=== PATIENT | female | born 2000 | race Caucasian/White ===

== ENCOUNTER → 2024-04-03 | Outpatient (CLI) | payer OTHER, SELFPAY ==
[2024-04-03 14:03] LABS: Bacteria 0 SEEN /hpf (None Seen); Red Blood Cells-Urine 0 SEEN /hpf (0-5); White Blood Cells 0 SEEN /hpf (0-5)
[2024-04-03 17:26] LABS: Absolute Lymphocyte Count 2.63 X10^3/uL (0.83-4.51); Absolute Neutrophil Count 4.1 X10^3/uL (2.0-7.7); Basophil# 0.04 X10^3/uL; Basophil% 0.5 % (0-1); Color, Urine Straw (Yellow); Eosinophil# 0.12 X10^3/uL; Eosinophils% 1.6 % (0-5); Glucose, Dipstick Normal (Normal); Hematocrit 39.2 % (37-47); Hemoglobin 12.8 g/dL (12.0-15.0); Ketone-Dipstick Negative (Negative); Leukocyte Esterase-Dipstick Negative /ul (Negative); Lymphocyte # 2.63 X10^3/ul (0.83-4.51); Lymphocyte % 35.3 % (19-41); Mean Corp Hgb Conc 32.7 g/dL (32-36); Mean Corpuscular Hgb 29.3 pg (27.0-32.0); Mean Corpuscular Volume 89.7 fL (81-99); Mean Platelet Vol. 10.8 fl (6.2-12.0); Monocyte% 6.7 % (0-10); NRBC Flagged by Analyzer 0 % (0-5); Neutrophil # 4.14 X10^3/uL (2.7-7.7); Neutrophil % 55.5 % (47-70); Nitrite-Dipstick Negative (Negative); Occult Blood-Urine Negative /ul (Negative); Platelet Count 248 K/mm3 (150-450); Protein-Dipstick Negative (Negative); RBC Distribution Width CV 12.1 % (11.6-14.6); RBC Distribution Width SD 40.1 fl (35.1-43.9); Red Blood Count 4.37 M/mm3 (4.2-5.4); Urine Bilirubin Dipstick Negative (Negative); Urine Clarity Clear (Clear); Urine Urobilinogen Normal (Normal); White Blood Count 7.5 K/mm3 (4.4-11.0)
[2024-04-03 17:35] LABS: Mucous, Urine RARE /hpf (<or=2+); Squamous Epithelial Cells - UA 0-5 SEEN /hpf (5-10)
[2024-04-03 17:40] LABS: ALB/GLOB Ratio 1.2 RATIO (0.9-2.4); AST(SGOT) 20 U/L (15-37); Alanine Aminotransfer ALT/SGPT 28 U/L (13-56); Albumin, Serum 4.1 g/dL (3.2-5.0); Alkaline Phosphatase 54 U/L (45-117); Anion Gap 4 (5-15); BUN 16 mg/dL (7-18); BUN/Creat Ratio 14.5 RATIO (10-20); Calcium,Total 9.1 mg/dL (8.5-10.1); Chloride 109 mmol/L (98-107); EST Glomerular Filtration Rate 64 mL/min (>60); Est Glom Filt Rate - Afr Amer 78 mL/min (>60); Globulin 3.4 g/dL (2.2-4.2); Glucose 77 mg/dL (74-106); Potassium 3.8 mmol/L (3.5-5.1); Protein, Total 7.5 g/dL (6.4-8.2); Sodium Level 140 mmol/L (136-145)
== END | disposition home or self-care (01) ==
LOC: MFPLAB 14:02
PROVIDERS: PCP Family Medicine; Referring Provider Family Medicine; Visit Provider Family Medicine
DX: N39.0 Urinary tract infection, site not specified (principal)
CPT/HCPCS: 36415; 80053; 81001; 85025

== ENCOUNTER → 2024-04-10 | Outpatient (CLI) | payer OTHER, SELFPAY ==
[2024-04-10 10:55] LABS: Anion Gap 6 (5-15); BUN 11 mg/dL (7-18); BUN/Creat Ratio 9.6 RATIO (10-20); Calcium,Total 9.5 mg/dL (8.5-10.1); Chloride 108 mmol/L (98-107); Creatinine, Serum 1.14 mg/dL (0.55-1.02); EST Glomerular Filtration Rate 62 mL/min (>60); Est Glom Filt Rate - Afr Amer 75 mL/min (>60); Glucose 93 mg/dL (74-106); Potassium 4.2 mmol/L (3.5-5.1); Sodium Level 139 mmol/L (136-145)
== END | disposition home or self-care (01) ==
LOC: LABSPEC 10:02
PROVIDERS: PCP Family Medicine; Referring Provider Family Medicine; Visit Provider Family Medicine
DX: N39.0 Urinary tract infection, site not specified (principal)
CPT/HCPCS: 80048

== ENCOUNTER → 2024-04-15 | Outpatient (CLI) | payer OTHER, SELFPAY ==
--- NOTE | 2024-04-15 13:07 | US_ITS ---
INDICATION: UTI EXAMINATION: Ultrasound US Kidney(s) complete (eg, kidneys and bladder) TECHNIQUE: Pollack scale and color doppler images were obtained of the kidneys. COMPARISON: FINDINGS: RIGHT KIDNEY: 11.2 x 6.0 x 4.8 cm. The cortex is 16 mm. There is no hydronephrosis. No shadowing calculus, focal lesion or perinephric collection is demonstrated. LEFT KIDNEY: 10.0 x 3.4 x 4.2 cm. The cortex is 15 mm There is no hydronephrosis. No shadowing calculus, focal lesion or perinephric collection is demonstrated. URINARY BLADDER: It has a volume of 695 cc during imaging. US/Kidney and Bladder IMPRESSION: No acute pathology is noted. Electronically Signed: Jemal Grimes DO at 23:21 EST ,
[2024-04-24 08:17] LABS: HPV Reflexed? NOT INDICATED
== END | disposition home or self-care (01) ==
PROVIDERS: Nurse Practitioner Family; PCP Family Medicine; Referring Provider Family Medicine; Visit Provider Family Medicine
DX: Z12.4 Encounter for screening for malignant neoplasm of cervix (principal); N39.0 Urinary tract infection, site not specified
CPT/HCPCS: 76770; 88175; G0145

== ENCOUNTER → 2024-06-04 | Outpatient (CLI) | payer OTHER, SELFPAY ==
[2024-06-09 02:06] LABS: Chlamydia By Nucleic Acid AMP Negative (Negative); Gonococcus By Nucleic Acid AMP Negative (Negative)
== END | disposition home or self-care (01) ==
LOC: LABSPEC 17:05
PROVIDERS: PCP Family Medicine; Referring Provider Advanced Practice Midwife; Visit Provider Advanced Practice Midwife
DX: O99.210 Obesity complicating pregnancy, unspecified trimester (principal); Z3A.00 Weeks of gestation of pregnancy not specified
CPT/HCPCS: 87086; 87088; 87491; 87591

== ENCOUNTER → 2024-07-07 | Outpatient (CLI) | payer OTHER, SELFPAY ==
[2024-07-07 17:06] LABS: Absolute Lymphocyte Count 2.97 X10^3/uL (0.83-4.51); Absolute Neutrophil Count 8.9 X10^3/uL (2.0-7.7); Basophil# 0.04 X10^3/uL; Basophil% 0.3 % (0-1); Eosinophil# 0.13 X10^3/uL; Hematocrit 37.1 % (37-47); Hemoglobin 12.6 g/dL (12.0-15.0); Lymphocyte # 2.97 X10^3/ul (0.83-4.51); Lymphocyte % 22.8 % (19-41); Mean Corpuscular Hgb 29.8 pg (27.0-32.0); Mean Corpuscular Volume 87.7 fL (81-99); Mean Platelet Vol. 11.3 fl (6.2-12.0); Monocyte# 0.79 X10^3/uL; Monocyte% 6.1 % (0-10); NRBC Flagged by Analyzer 0 % (0-5); Neutrophil # 8.93 X10^3/uL (2.7-7.7); Neutrophil % 68.4 % (47-70); Platelet Count 225 K/mm3 (150-450); RBC Distribution Width SD 41.6 fl (35.1-43.9); Red Blood Count 4.23 M/mm3 (4.2-5.4)
[2024-07-07 19:24] LABS: Hepatitis B Surface Antigen Nonreactive (Nonreactive); Hepatitis C Antibody Nonreactive (Nonreactive); Rubella IgG REAC (Nonreactive); Syphilis Antibodies Nonreactive (Nonreactive)
[2024-07-07 19:51] LABS: HIV Nonreactive (Nonreactive)
[2024-07-07 20:17] LABS: Hemoglobin A1c 5.1 % (<=5.6)
== END | disposition home or self-care (01) ==
LOC: BWCLAB 16:02
PROVIDERS: Advanced Practice Midwife; PCP Family Medicine; Referring Provider Obstetrics & Gynecology; Visit Provider Obstetrics & Gynecology
DX: O99.210 Obesity complicating pregnancy, unspecified trimester (principal); Z3A.00 Weeks of gestation of pregnancy not specified
CPT/HCPCS: 36415; 83036; 85025; 86703; 86762; 86780; 86803; 86850; 86900; 86901; 87340

== ENCOUNTER → 2024-08-04 | Outpatient (CLI) | payer OTHER, SELFPAY ==
[2024-08-04 12:29] LABS: Protein, Urine (Random) 11.5 mg/dL (0.0-12.0); Protein:Creat Ratio 68 mg/g CRE (0-200)
[2024-08-04 12:32] LABS: ALB/GLOB Ratio 1.2 RATIO (0.9-2.4); AST(SGOT) 22 U/L (<=31); Alanine Aminotransfer ALT/SGPT 38 U/L (<=34); Albumin, Serum 3.8 g/dL (3.5-5.0); Alkaline Phosphatase 52 U/L (35-104); Anion Gap 10 (5-15); BUN 10 mg/dL (4-19); BUN/Creat Ratio 12.9 RATIO (10-20); Calcium,Total 9.3 mg/dL (7.6-11.0); Carbon Dioxide 21.9 mmol/L (21.0-32.0); Chloride 104 mmol/L (98-108); Creatinine, Serum 0.79 mg/dL (0.70-1.20); EST Glomerular Filtration Rate 106 (>60); Globulin 3.1 g/dL (2.2-4.2); Glucose 91 mg/dL (70-99); Potassium 4.1 mmol/L (3.3-5.1); Protein, Total 6.9 g/dL (5.9-8.4); Sodium Level 136 mmol/L (133-145); Total Bilirubin 0.33 mg/dL (0.00-1.30)
[2024-08-04 13:22] LABS: Absolute Lymphocyte Count 2.39 X10^3/uL (0.83-4.51); Absolute Neutrophil Count 9.9 X10^3/uL (2.0-7.7); Basophil# 0.07 X10^3/uL; Basophil% 0.5 % (0-1); Eosinophils% 0.7 % (0-5); Hematocrit 39.8 % (37-47); Hemoglobin 13.2 g/dL (12.0-15.0); Lymphocyte # 2.39 X10^3/ul (0.83-4.51); Lymphocyte % 17.6 % (19-41); Mean Corp Hgb Conc 33.2 g/dL (32-36); Mean Corpuscular Hgb 29.9 pg (27.0-32.0); Mean Platelet Vol. 11.6 fl (6.2-12.0); Monocyte# 0.79 X10^3/uL; Monocyte% 5.8 % (0-10); NRBC Flagged by Analyzer 0 % (0-5); Neutrophil # 9.94 X10^3/uL (2.7-7.7); Neutrophil % 73.1 % (47-70); Platelet Count 213 K/mm3 (150-450); RBC Distribution Width CV 13.4 % (11.6-14.6); RBC Distribution Width SD 43.9 fl (35.1-43.9); Red Blood Count 4.42 M/mm3 (4.2-5.4); White Blood Count 13.6 K/mm3 (4.4-11.0)
== END | disposition home or self-care (01) ==
PROVIDERS: PCP Family Medicine; Referring Provider Nurse Practitioner Women's Health; Visit Provider Nurse Practitioner Women's Health
DX: O99.891 Other specified diseases and conditions complicating pregnancy (principal); Q62.7 Congenital vesico-uretero-renal reflux; Z3A.17 17 weeks gestation of pregnancy
CPT/HCPCS: 36415; 80053; 82570; 84156; 85025

== ENCOUNTER → 2024-08-19 | Outpatient (CLI) | payer OTHER, SELFPAY ==
--- NOTE | 2024-08-19 15:20 | US_ITS ---
PROCEDURE: OB ANATOMY W/ TRANSVAGINAL 08/19/2024 REASON FOR EXAM: ANATOMY SCAN TECHNIQUE: High resolution obstetric ultrasound performed using a 2D transducer. Standard views obtained, including biometry, anatomy survey, and Doppler studies. COMPARISON: None FINDINGS Number: 1 Position: Breech Placental Position: Anterior and not low-lying. Placental Abnormalities: No evidence of previa. DIMENSIONS: Biparietal Diameter: 4.25 cm: 18 weeks and 6 days: 10 percentile/ Head Circumference: 16.99 cm: 19 weeks and 4 days: 24 percentile/ Abdominal Circumference: 14.07 cm: 19 weeks and 3 days: 27 percentile/ Femur Length: 3.13 cm: 19 weeks and 5 days: 32nd percentile/ ESTIMATED WEIGHT: 295 g plus/-44 g ESTIMATED WEIGHT PERCENTILE (24+ weeks): 21 ESTIMATED GESTATIONAL AGE: Baseline: 20 weeks and 0 days By Ultrasound: 19 weeks and 4 days ESTIMATED DATE OF DELIVERY: Baseline: January 06, 2025 By Ultrasound: January 09, 2025 BIOPHYSICAL ASSESSMENT: Amniotic Fluid Volume: 3.97 cm Amniotic Fluid Index: Within normal limits. Cardiac Motion: 145 beats per minute (average) Trunk and Limb Motion: Present. MATERNAL ANATOMY: Adnexa: Neither maternal ovary is successfully identified. Cervical Length (if measured): 3.7 cm ANATOMY: Spine: Unremarkable Cranium: Unremarkable Cerebellum: Unremarkable Cisterna Magna: Unremarkable Cavum Septum Pellucidi: Unremarkable Lateral Ventricles: Unremarkable Choroid Plexus: Unremarkable Midline Falx: Unremarkable Nuchal Fold: Unremarkable Upper Lip: Unremarkable Heart: Unremarkable Ventricular Outflow Tracts: Unremarkable Stomach: Unremarkable Kidneys: Unremarkable Bladder: Unremarkable Umbilical Cord: Normal placental insertion. cord insertion not seen well. Extremities: Unremarkable US/OB Anatomy w/ Transvaginal IMPRESSION: Single live intrauterine gestation with a mean gestational age of 19 weeks and 4 days. Reading Location: [facility]
== END | disposition home or self-care (01) ==
LOC: US 15:18
PROVIDERS: PCP Family Medicine; Referring Provider Obstetrics & Gynecology; Visit Provider Obstetrics & Gynecology
DX: Z34.92 Encounter for supervision of normal pregnancy, unspecified, second trimester (principal)
CPT/HCPCS: 76805; 76817

== ENCOUNTER → 2024-10-10 | Outpatient (CLI) | payer OTHER, SELFPAY ==
--- OUTSIDE RECORDS SUMMARY | 2024-10-10 20:57 | XMS RPT_ITS | CCD ---
Author Organization [facility] Care Team Providers Care Handle Lathe Operator Name Role Phone Bojtos, Pa A Unavailable Unavailable Bojtos, Pa A Unavailable Unavailable Bojtos, Pa Unavailable Unavailable Krichbaum, Idalia L Unavailable Unavailable Bojtos, Pa Unavailable Unavailable Bojtos, Pa Unavailable Unavailable Bojtos, Pa Unavailable Unavailable Krichbaum, Idalia L Unavailable Unavailable BOJTOS, PA Unavailable Unavailable BOJTOS, PA Unavailable Unavailable RUSTY, LYNNE L Unavailable Unavailable ELENI VIDAL Unavailable Unavailable RUSTY, LYNNE L Unavailable Unavailable Sridhar PITTMAN, Dr. Donald Pittman Primary Care Provider Sridhar PITTMAN, Dr. Donald Pittman Attending Provider [phone] Dr. Donald Waller MD Referring Provider Noemi FAN-Magda Martínez Attending Provider Susie Solomon CNM Attending Provider [phone] Susie Solomon CNM Referring Provider Dr. Nita Mcintosh MD Attending Provider [phone] Dr. Nita Mcintosh MD Referring Provider Dr. Donald Waller MD Primary Care Provider Dr. Donald Waller MD Attending Provider [phone] Dr. Donald Waller MD Referring Provider Sudheer FAN-Jennifer Martínez Attending Provider Sudheer FAN-CJennifer Referring Provider Dr. Donald Waller MD Primary Care Provider Dr. Donald Waller MD Referring Provider Dr. Susan Chavez DO Attending Provider Dinh Livingston Attending Provider [phone] Donald Waller Primary Care Unavailable SchDonald marie E Referring Unavailable SchDonald marie Attending Unavailable Assessment, Health Risk Referring Unavaila ble Assessment, Health Risk Attending Unavaila ble SchDonald marie E Primary Care Unavailable Schinner, Donald E Referring Unavailable SchinnerDonlad E Attending Unavailable SchinDonald wilde E Primary Care Unavailable SchinDonald wilde E Referring Unavailable Susie Solomon Attending Unavailable SchinDonald wilde E Primary Care Unavailable SchinDonald wilde E Referring Unavailable Nita Mcintosh Attending Unavailable Schinner, Donald E Primary Care Unavailable SchinnerDonald Referring Unavailable Sudheer BATHHOUSE ATTENDANTJennifer Attending Unavailable SchinDonald wilde E Primary Care Unavailable SchDonald marie E Referring Unavailable Susan Chavez Attending Unavailronda e Schinandry, Donald E Primary Care Unavailable SchinnerDonald Referring Unavailable Jennifer Willard NP Attending Unavailable Schinandry, Donald E Primary Care Unavailable SchDonald marie Referring Unavailable Dinh Livingston Attending Unavailable SchinDonald widle Referring Unavailable Schinner, Donald E Primary Care Unavailable Magda Franklin Attending Unavailable SchinDonald wilde E Primary Care Unavailable SchDonald marie Referring Unavailable SchDonald marie Attending Unavailable SchDonald marie E Primary Care Unavailable Susie Solomon Referring Unavailable Susie Soolmon Attending Unavailable Schcynthia, Donald E Primary Care Unavailable Nita Mcintosh Referring Unavailable Nita Mcintosh Attending Unavailable Donald Waller E Primary Care Unavailable Nita Mcintosh Referring Unavailable Nita Mcintosh Attending Unavailable Donald Waller E Primary Care Unavailable Jennifer Willard NP Referring Unavailable Sudheer BATHHOUSE ATTENDANTJennifer Attending Unavailable Medications Current Medications Medication Drug Class(es) Dates Sig (Normalized) Sig (Original) amoxicillin 875 mg oral tablet (2 sources) Penicillin-class Antibacterial Start: 09-28-2024 take 1 tablet by mouth twice daily Amoxicillin 875 mg tablet Active 875 mg PO TWICE A DAY September 28, 2024 12:00am bacillus coagulans [id number] unt chewable tablet (4 sources) Start: 05-26-2024 Bacillus Coagulans (Probiotic (B. Coagulans)) 250 million cell tablet,chewable Active 2 {tbl} PO ONCE May 26, 2024 1:00am calcium ascorbate 500 mg oral tablet (4 sources) Start: 05-26-2024 take 1 tablet by mouth once daily Ascorbate Calcium (Vitamin C) 500 mg tablet Active 500 mg PO daily May 26, 2024 1:00am 24 hr ferrous sulfate 142 mg extended release oral tablet (4 sources) Start: 05-26-2024 take 1 tablet by mouth once daily Ferrous Sulfate (Slow Fe) 137 mg (45 mg iron) tablet extended release Active 137 mg PO daily May 26, 2024 1:00am ondansetron 4 mg disintegrating oral tablet (3 sources) Serotonin-3 Receptor Antagonist Start: 08-04-2024 take 1 tablet by mouth every four hours as needed for nausea and vomiting Ondansetron 4 mg tablet,disintegra ting Active 4 mg PO Q4H as needed for nausea and vomiting August 04, 2024 12:00am Pnv No.111-Ds-Nn9-Dha-Ep a-Fish 400 mcg-35 mg- 25 mg-5 mg tablet,chewable (4 sources) Start: 05-26-2024 Pnv No.037-Fo-Ui2-Dha -Epa-Fish 400 mcg-35 mg- 25 mg-5 mg tablet,chewable Active {tbl} PO May 26, 2024 1:00am Problems Active Problems Problem Classification Problem Date Documented Date Episodic/Chronic Anxiety disorders (19 sources) Anxiety; Translations: [Anxiety disorder, unspecified] Onset: 5 05-26-2024 Chronic Comment on above: not medicated 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; Translations: [Congenital alczpr-lcljvsr-confu reflux] Onset: 5 08-04-2024 Chronic Comment on above: check urine func Q3 mo:CMP and urine PC ratio Other complications of (18 sources) Maternal obesity complicating , childbirth and the puerperium, antepartum; Translations: [Obesity complicating , unspecified trimester] 05-26-2024 Chronic Comment on above: HgbA1c Other complications of (1 source) Obesity complicating , second trimester; Translations: [Obesity complicating , second trimester] Onset: 5 Chronic Other complications of (1 source) Obesity complicating , unspecified trimester; Translations: [Obesity complicating , unspecified trimester] Onset: 5 Chronic Other diseases of kidney and ureters (3 sources) Kidney disease; Translations: [Disorder of kidney and ureter, unspecified] 09-28-2024 Episodic Other and delivery including normal (20 sources) Normal ; Translations: [Encounter for supervision of normal first , unspecified trimester] Onset: 5 07-08-2024 Episodic Comment on above: PRR, , TERRENCE , Significant other Juan elects NIPT with Gen daniella NIPT low risk PRR, , TERRENCE , Significant other Juan. nl anatomy Other screening for suspected conditions (not mental disorders or infectious disease) (11 sources) Serum creatinine raised; Translations: [Other specified abnormal findings of blood chemistry] Onset: 5 08-04-2024 Episodic Comment on above: with her reflux-runs just above normal. Follows with Dr Worley. Labs Q3mo:CMP and urine P/C ratio Residual codes; unclassified (18 sources) Nicotine-filled electronic cigarette user; Translations: [Tobacco use] 05-26-2024 Episodic Comment on above: Has decreased % of n icotine, considering quitting, smoking education provided Residual codes; unclassified (18 sources) FH: Hemophilia; Translations: [Family history of diseases of the blood and blood-forming organs and certain disorders involving the immune mechanism] 05-26-2024 Episodic Comment on above: Maternal Aunt Residual codes; unclassified (1 source) Tobacco use; Translations: [Tobacco use] Onset: 5 Episodic Residual codes; unclassified (1 source) Family history of diseases of the blood and blood-forming organs and certain disorders involving the immune mechanism; Translations: [Family history of diseases of the blood and blood-forming organs and certain disorders involving the immune mechanism] Onset: 5 Episodic Residual codes; unclassified (1 source) 17 weeks gestation of ; Translations: [17 weeks gestation of ] Onset: 5 Episodic Residual codes; unclassified (1 source) 13 weeks gestation of ; Translations: [13 weeks gestation of ] Onset: 5 Episodic Unclassified (1 source) Other specified diseases and conditions complicating ; Translations: [Other specified diseases and conditions complicating ] Onset: 5 Urinary tract infections (19 sources) Recurrent urinary tract infection; Translations: [Urinary tract infection, site not specified] Onset: 5 04-15-2024 Episodic Past or Other Problems Problem Classification Problem Date Documented Da te Episodic/Chronic Residual codes; unclassified (1 source) 9 weeks gestation of ; Translations: [9 weeks gestation of ] Onset: 06-04-2024 Episodic Results Test Name Value Interpretation Reference Range Facility Picture [facility] Office Visit Reporton 09-28-2024 Picture [facility] Office Visit Report [facility] [address], [address] [place] [address] OFFICE VISIT Date of Service: 09/28/24 MR#: [id number] Acct: [id number] Name: LUCIANO KENDALL Rep #: [id number] : 2000 Provider: ANY dykes Age/Sex: 24/F [place] [facility] [place]: [place] Intake Vital Signs 09/01/24 15:04 09/28/24 07:30 09/28/24 14:56 Height 5 ft 8 in 5 ft 8 in 5 ft 8 in Weight: 262 lb BMI 39.8 BP 122/76 H Intake Visit Reasons: 26wk ob Chief Complaint: 26 Week OB Gastroenterology Nurse Required: No Is patient in pain?: No Allergies No Known Allergies Allergy (Verified 09/28/24 15:00) Medications ???Medication ???Instructions ???Recorded ???Confirmed ???Type Bacillus coagulans 250 million 2 tab PO ONCE 05/26/24 09/28/24 Hi story cell chewable tablet (Probiotic (B. coagulans)) PNV 153-FA 400 mcg-om3 35 mg-dha tab PO 05/26/24 09/28/24 History 25 mg-epa 5 mg-fish oil chew tablet ascorbate calcium (vitamin C) 500 500 mg PO QDAY 05/26/24 09/28/24 History mg tablet ferrous sulfate 137 mg (45 mg 137 mg PO QDAY 05/26/24 09/28/24 H istory iron) tablet,extended release (Slow Fe) ondansetron 4 mg disintegrating 4 mg PO Q4H PRN nausea and 5 09/28/24 Rx tablet vomiting #60 tabs amoxicillin 875 mg tablet 875 mg PO BID #20 tabs 09/28/24 Rx Last Menstrual Period: 04/01/24 Zika: Zika virus screening: Negative : No PFSH PFSH Medical History Congenital gzzadv-hydlzgb-blfrh reflux Gallstones UTI (urinary tract infection) Asthma Surgical History Hx of cholecystectomy Hx of tonsillectomy Family History Father Diabetes Type 1 Aunt Thyroid disorder Maternal Mother Thyroid disorder enlarged Grandmother Breast cancer Paternal Social History adopted: No household members: significant other 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al status: employed 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al exposures/hazards: No pets and animals: Yes (Avoid litter box) pets and animals: cat(s) history of recent travel: Yes () out of country: Yes sexually active: Yes Smoking Status: Current every day smoker Electronic Cigarette Use: with nicotine quit status: considering quitting alcohol intake: current alcohol intake frequency: a few times a month details: Not while substance use type: does not use well-balanced diet: about half the time caffeine: Yes Type: coffee Number of servings: 1 eating out: 1-3 times/week during the past year weight has: decreased > 10 lbs what type of physical activity do you participate in: walking and weight training frequency: 1-2 times per week duration: 60-90 minutes/day sid/lutheran: None seatbelt use: always do you feel safe at home: Yes additional social history: significant other- Juan History 1 Elective abortions Hx Para 0 Spontaneous abortions Hx # Term Pregnancies Ectopic pregnancies Hx # Pregnancies Multiple births # of living children HPI 26wk ob Details: LUCIANO KENDALL is a 24 year old who presents for routine OB visit. OB Visit TERRENCE Calculator Estimated Delivery Date Method Current WG Current Estimate 01/06/25 LMP (Certain) 25w 5d Other Estimates 01/09/25 Ultrasound #1 25w 2d Expected Delivery Route/Plan Labor Preferences- CB/BF classes: encouraged labor support person: Wesley labor intervention preferences: epidural pain management options preferred: [] cut cord/dad catch: maybe cord : yes PP control planned: discussed discussed possible routes of delivery and associated risks: [] special requests: [] Specific Issue/Plans Covid status: [] Flu vaccine: [] Tdap vaccine: [] Rhogam: NA LARC form signed: yes Problem list reviewed and updated with the most current plan of care details and appropriate orders placed. Relevant counseling for the gestational age provided. Continue routine care and follow up unless otherwise noted in visit notes/problem list details Initial Weight: 226 lb Date -???-???-???-???-???- ???-???-???-???-???-? ??-???- EGA Weight BP Urine Prot -???-???-???-???-???- ???-???-???-???-???-? ??-???- Glucose FHR FuHt Pres Dilation -???-???-???-???-???- ???-???-???-???-???-? ??-???- Effaced St Visit Note 06/04/24 -???-???-???-???-???- ???-???-???-???-???-? ??-???- 9w 1d 226 lb 4 oz (+4 oz) 128/82 -???-???-???-???-???- ???-???-???-???-???-? ??-???- 175 -???-???-???-???-???- ???-???-???-???-???-? ??-???- KW- CRL cons with dates. acce (more content not included)... Normal [facility]gent [facility] Visit Reporton 0 09-28-2024 Urgent Care Visit Report [facility] [address], [address] [place] [address] OFFICE VISIT Date of Service: 09/28/24 MR#: [id number] Acct: [id number] Name: LUCIANO KENDALL Rep #: [id number] : 2000 Provider: CLAUDETTE Farmer Age/Sex: 24/F [place] [facility] [place] Status: Signed Intake Vital Signs 09/01/24 15:04 09/28/24 07:30 Height 5 ft 8 in 5 ft 8 in Weight: 263 lb 8 oz BMI 40.0 BP 120/80 Position Sitting Pulse 90 Temp 98.8 F Temp Source Oral Pulse Oximetry (%) 99 Oxygen Delivery Method room air Intake Visit Reasons: congestion, cough, sore throat Accompanied by: self Allergies No Known Allergies Allergy (Verified 09/28/24 07:28) Medications ???Medication ???Instructions ???Recorded ???Confirmed ???Type Bacillus coagulans 250 million 2 tab PO ONCE 05/26/24 09/28/24 Hi story cell chewable tablet (Probiotic (B. coagulans)) PNV 153-FA 400 mcg-om3 35 mg-dha tab PO 05/26/24 09/28/24 History 25 mg-epa 5 mg-fish oil chew tablet ascorbate calcium (vitamin C) 500 500 mg PO QDAY 05/26/24 09/28/24 History mg tablet ferrous sulfate 137 mg (45 mg 137 mg PO QDAY 05/26/24 09/28/24 H istory iron) tablet,extended release (Slow Fe) ondansetron 4 mg disintegrating 4 mg PO Q4H PRN nausea and 5 09/01/24 Rx tablet vomiting #60 tabs amoxicillin 875 mg tablet 875 mg PO BID #20 tabs 06/02/25 06 /02/25 Rx Nurse's Note: Patient has congestion,cough,ST,t eeth pain and sinus pressure. Patient lost her voice on Sat night. 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al exposures/hazards: No pets and animals: Yes (Avoid litter box) pets and animals: cat(s) history of recent travel: Yes () out of country: Yes sexually active: Yes Smoking Status: Current every day smoker Electronic Cigarette Use: with nicotine quit status: considering quitting alcohol intake: current alcohol intake frequency: a few times a month details: Not while substance use type: does not use well-balanced diet: about half the time caffeine: Yes Type: coffee Number of servings: 1 eating out: 1-3 times/week during the past year weight has: decreased > 10 lbs what type of physical activity do you participate in: walking and weight training frequency: 1-2 times per week duration: 60-90 minutes/day sid/lutheran: None seatbelt use: always do you feel safe at home: Yes additional social history: significant other- Juan [facility] HPI Details: LUCIANO KENDALL, is a 24 F who presents to the office today for [facility] evaluation at [facility] for approximately 5-day history of progressively worsening forehead and facial pressure/congestion with purulent postnasal drip/cough and upper dentition pain. No complaints of fever, chills, myalgias, fatigue, runny nose, or nausea/vomiting/diarr hea. No complaints of chest pain/shortness of breath/dyspnea on exertion. No vision changes or eye globe pain. No close contacts with similar complaints. No other associated symptoms and no other alleviating/aggravati ng factors. ROS Const Constitutional: No other (as above) Exam Const General: cooperative, healthy appearing and no acute distress Nutritional Appearance: average body habitus Orientation: alert, awake and oriented x3 HENMT Head: normal to inspection Ears: hearing grossly normal bilaterally, external ears normal, TM's normal bilaterally and EAC's normal Nose: external nose normal, nares normal, septum normal and no nasal discharge Face and sinus: normal facial exam, sinuses tender (bilateral frontal and maxillary), and face symmetric Mouth: oral mucosae normal, lip normal, tongue normal and oropharynx normal; dentition and gingiva clear Throat: posterior oropharynx normal, tonsils normal, uvula midline and postnasal drainage (Purulent) Eyes General: appearance normal, both eyes and all related structures Neck Neck: normal visual inspection, full ROM, no meningeal signs, supple and lymphadenopathy (Bilateral anterior cervical lymph node swelling/tender to palpation) Neck mass: No Thyroid: thyroid normal Chest Chest palpation inspection: normal i (more content not included)... Normal [facility] - Chemistry and C hemistry - challengeOrdered By: Susan Coburn on 09-01-2024 Glucose Ql (U) Negative [facility] - UrinalysisOrder ed By: Susan Coburn on 09-01-2024 Protein Ql (U) Negative [facility] Picture [facility] Office Visit Reporton 09-01-2024 Picture [facility] Office Visit Report [facility] [address], [address] [place] [address] OFFICE VISIT Date of Service: 09/01/24 MR#: [id number] Acct: [id number] Name: LUCIANO KENDALL Rep #: [id number] : 2000 Provider: Dr. Susan Lau DO Age/Sex: 24/F [place] [facility] [place] Status: Signed Intake Vital Signs 07/07/24 15:11 08/04/24 10:40 09/01/24 15:02 09/01/24 15:04 Height 5 ft 8 in 5 ft 8 in 5 ft 8 in 5 ft 8 in Weight: 246 lb 2 oz BMI 37.4 BP 125/81 H Intake Visit Reasons: 22 wk ob Gastroenterology Nurse Required: No Is patient in pain?: No Allergies No Known Allergies Allergy (Verified 09/01/24 15:02) Medications ???Medication ???Instructions ???Recorded ???Confirmed ???Type Bacillus coagulans 250 million 2 tab PO ONCE 05/26/24 09/01/24 Hi story cell chewable tablet (Probiotic (B. coagulans)) PNV 153-FA 400 mcg-om3 35 mg-dha tab PO 05/26/24 09/01/24 History 25 mg-epa 5 mg-fish oil chew tablet ascorbate calcium (vitamin C) 500 500 mg PO QDAY 05/26/24 09/01/24 History mg tablet ferrous sulfate 137 mg (45 mg 137 mg PO QDAY 05/26/24 09/01/24 H istory iron) tablet,extended release (Slow Fe) ondansetron 4 mg disintegrating 4 mg PO Q4H PRN nausea and 5 09/01/24 Rx tablet vomiting #60 tabs Last Menstrual Period: 04/01/24 Zika: Zika virus screening: Negative : No PFSH PFSH Medical History Congenital decity-mizlydy-ptsra reflux Gallstones UTI (urinary tract infection) Asthma Surgical History Hx of cholecystectomy Hx of tonsillectomy Family History Father Diabetes Type 1 Aunt Thyroid disorder Maternal Mother Thyroid disorder enlarged Grandmother Breast cancer Paternal Social History adopted: No household members: significant other 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al status: employed 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al exposures/hazards: No pets and animals: Yes (Avoid litter box) pets and animals: cat(s) history of recent travel: Yes () out of country: Yes sexually active: Yes Smoking Status: Current every day smoker Electronic Cigarette Use: with nicotine quit status: considering quitting alcohol intake: current alcohol intake frequency: a few times a month details: Not while substance use type: does not use well-balanced diet: about half the time caffeine: Yes Type: coffee Number of servings: 1 eating out: 1-3 times/week during the past year weight has: decreased > 10 lbs what type of physical activity do you participate in: walking and weight training frequency: 1-2 times per week duration: 60-90 minutes/day sid/lutheran: None seatbelt use: always do you feel safe at home: Yes additional social history: significant other- Juan History 1 Elective abortions Hx Para 0 Spontaneous abortions Hx # Term Pregnancies Ectopic pregnancies Hx # Pregnancies Multiple births # of living children HPI 22 wk ob Details: LUCIANO KENDALL is a 24 year old who presents for routine OB visit. OB Visit TERRENCE Calculator Estimated Delivery Date Method Current WG Current Estimate 01/06/25 LMP (Certain) 21w 6d Other Estimates 01/09/25 Ultrasound #1 21w 3d Expected Delivery Route/Plan Labor Preferences- CB/BF classes: [] labor support person: [] labor intervention preferences: [] pain management options preferred: [] cut cord/dad catch: [] : [] PP control planned: [] discussed possible routes of delivery and associated risks: [] special requests: [] Specific Issue/Plans Covid status: [] Flu vaccine: [] Tdap vaccine: [] Rhogam: [] LARC form signed: [] Problem list reviewed and updated with the most current plan of care details and appropriate orders placed. Relevant counseling for the gestational age provided. Continue routine care and follow up unless otherwise noted in visit notes/problem list details Initial Weight: 226 lb Date -???-???-???-???-???- ???-???-???-???-???-? ??-???- EGA Weight BP Urine Prot -???-???-???-???-???- ???-???-???-???-???-? ??-???- Glucose FHR FuHt Pres Dilation -???-???-???-???-???- ???-???-???-???-???-? ??-???- Effaced St Visit Note 06/04/24 -???-???-???-???-???- ???-???-???-???-???-? ??-???- 9w 1d 226 lb 4 oz (+4 oz) 128/82 -???-???-???-???-???- ???-???-???-???-???-? ??-???- 175 -???-???-???-???-???- ???-???-???-???-???-? ??-???- KW- CRL cons with dates. accepts nipt. 07/07/24 -???-???-???-???-???- ???-???-???-???-???-? ??-???- 13w 6d 228 lb 8 oz (+2 (more content not included)... Normal [facility] OB Anatomy w/ Transvaginalon 08-19-2024 OB Anatomy w/ Transvaginal [facility] [address] [place] [address] [id number] OB Anatomy w/ Transvaginal MR#: [id number] Acct: [id number] Name: LUCIANO KENDALL Rep #: [id number] : 2000 F 24 From: Kermit griffin MD PCP: Dr. Donald Waller MD Status: [facility] Study: OB Anatomy w/ Transvaginal Date of Exam: 08/19 Exam# [id number] Ordering Dr: Nita Mcintosh PROCEDURE: OB ANATOMY W/ TRANSVAGINAL 08/19/2024 REASON FOR EXAM: ANATOMY SCAN TECHNIQUE: High resolution obstetric ultrasound performed using a 2D transducer. Standard views obtained, including biometry, anatomy survey, and Doppler studies. COMPARISON: None FINDINGS Number: 1 Position: Breech Placental Position: Anterior and not low-lying. Placental Abnormalities: No evidence of previa. DIMENSIONS: Biparietal Diameter: 4.25 cm: 18 weeks and 6 days: 10 percentile/ Head Circumference: 16.99 cm: 19 weeks and 4 days: 24 percentile/ Abdominal Circumference: 14.07 cm: 19 weeks and 3 days: 27 percentile/ Femur Length: 3.13 cm: 19 weeks and 5 days: 32nd percentile/ ESTIMATED WEIGHT: 295 g plus/-44 g ESTIMATED WEIGHT PERCENTILE (24+ weeks): 21 ESTIMATED GESTATIONAL AGE: Baseline: 20 weeks and 0 days By Ultrasound: 19 weeks and 4 days ESTIMATED DATE OF DELIVERY: Baseline: January 06, 2025 By Ultrasound: January 09, 2025 BIOPHYSICAL ASSESSMENT: Amniotic Fluid Volume: 3.97 cm Amniotic Fluid Index: Within normal limits. Cardiac Motion: 145 beats per minute (average) Trunk and Limb Motion: Present. MATERNAL ANATOMY: Adnexa: Neither maternal ovary is successfully identified. Cervical Length (if measured): 3.7 cm ANATOMY: Spine: Unremarkable Cranium: Unremarkable Cerebellum: Unremarkable Cisterna Magna: Unremarkable Cavum Septum Pellucidi: Unremarkable Lateral Ventricles: Unremarkable Choroid Plexus: Unremarkable Midline Falx: Unremarkable Nuchal Fold: Unremarkable Upper Lip: Unremarkable Heart: Unremarkable Ventricular Outflow Tracts: Unremarkable Stomach: Unremarkable Kidneys: Unremarkable Bladder: Unremarkable Umbilical Cord: Normal placental insertion. cord insertion not seen well. Extremities: Unremarkable US/OB Anatomy w/ Transvaginal IMPRESSION: Single live intrauterine gestation with a mean gestational age of 19 weeks and 4 days. Reading Location: [place] [address] CC: Dr. Donald Waller MD; Dr. Nita Mcintosh MD Commercial Loan Coordinator: Signed Normal [facility] Absolute lymphocyte countOrd ered By: Jennifer Willard on 08-04-2024 Lymphocytes Auto (Unsp spec) [#/Vol] 2.39 10*3/uL 0.83-4.51 [facility] Absolute neutrophil countOrd ered By: Jennifer Willard on 08-04-2024 Neutrophils (Bld) [#/Vol] 9.9 10*3/uL High 2.0-7.7 [facility] Anion gap in Serum or Plasma Ordered By: Jennifer Willard on 08-04-2024 Anion gap [Moles/Vol] 10 mmol/L 5-15 [facility] Automated lymphocyte count a s percentage of total leukocytesOrdered By: Jennifer Willard on 08-04-2024 Lymphocytes/100 WBC Auto (Unsp spec) 17.6 % Low 19-41 [facility] BUN/creatinine ratioOrdered By: Jennifer Willard on 08-04-2024 Urea nitrogen/Creatinine [Mass ratio] 12.9 mg/mg 10-20 [facility] Basophil percentageOrdered B y: Jennifer Willard on 08-04-2024 Basophils/100 WBC (Bld) 0.5 % 0-1 [facility] Bilirubin, totalOrdered By: Jenniferfidel Willard on 08-04-2024 Bilirubin [Mass/Vol] 0.33 mg/dL 0.00-1.30 [facility] CBC W/Diff, Automatedon Absolute Lymph 2.39 X10 3/uL Normal 0.83-4.51 [facility] Comment on above: Order Comment: ADD O N Performed By: #### L 100.0100 #### [facility] [address] [place], [address] Absolute Neut 9.9 X10 3/uL High 2.0-7.7 [facility] Comment on above: Order Comment: ADD O N Performed By: #### L 100.0100 #### [facility] [address] [place], [address] Basophils/100 WBC (Bld) 0.5 % Normal 0-1 [facility] Comment on above: Order Comment: ADD O N Performed By: #### L 100.0100 #### [facility] [address] [place], [address] Eosinophils/100 WBC (Bld) 0.7 % Normal 0-5 [facility] Comment on above: Order Comment: ADD O N Performed By: #### L 100.0100 #### [facility] [address] [place], [address] Erythrocyte distribution width (RBC) [Ratio] 13.4 % Normal 11.6-14.6 [facility] Comment on above: Order Comment: ADD O N Performed By: #### L 100.0100 #### [facility] [address] [place], [address] Hematocrit (Bld) [Volume fraction] 39.8 % Normal 37-47 [facility] Comment on above: Order Comment: ADD O N Performed By: #### L 100.0100 #### [facility] [address] [place], [address] Hemoglobin (Bld) [Mass/Vol] 13.2 g/dL Normal 12.0-15.0 [facility] Comment on above: Order Comment: ADD O N Performed By: #### L 100.0100 #### [facility] [address] [place], [address] IG% 2.300 High 0.0-0.9 [facility] Comment on above: Order Comment: ADD O N Result Comment: IG% - Immature Granulocytes (promyelocytes, myelocytes and metamyelocytes) > 1% indicates that a LEFT SHIFT is Present. Performed By: #### L 100.0100 #### [facility] [address] [place], [address] Lymphocytes/100 WBC (Bld) 17.6 % Low 19-41 [facility] Comment on above: Order Comment: ADD O N Performed By: #### L 100.0100 #### [facility] [address] [place], [address] MCH (RBC) [Entitic mass] 29.9 pg Normal 27.0-32.0 [facility] Comment on above: Order Comment: ADD O N Performed By: #### L 100.0100 #### [facility] [address] [place], [address] MCHC (RBC) [Mass/Vol] 33.2 g/dL Normal 32-36 [facility] Comment on above: Order Comment: ADD O N Performed By: #### L 100.0100 #### [facility] [address] [place], [address] MCV (RBC) [Entitic vol] 90.0 fL Normal 81-99 [facility] Comment on above: Order Comment: ADD O N Performed By: #### L 100.0100 #### [facility] [address] [place], [address] Monocytes/100 WBC (Bld) 5.8 % Normal 0-10 [place] Comment on above: Order Comment: ADD O N Performed By: #### L 100.0100 #### [facility] [address] [place], [address] Neutrophils/100 WBC (Bld) 73.1 % High 47-70 [facility] Comment on above: Order Comment: ADD O N Performed By: #### L 100.0100 #### [facility] [address] [place], [address] Nucleated RBC (Bld) [#/Vol] 0 10*3/uL Normal 0-5 [facility] Comment on above: Order Comment: ADD O N Performed By: #### L 100.0100 #### [facility] [address] [place], [address] Platelet mean volume (Bld) [Entitic vol] 11.6 fL Normal 6.2-12.0 [facility] Comment on above: Order Comment: ADD O N Performed By: #### L 100.0100 #### [facility] [address] [place], [address] Platelets (Bld) [#/Vol] 213 10*3/uL Normal 150-450 [facility] Comment on above: Order Comment: ADD O N Performed By: #### L 100.0100 #### [facility] [address] [place], [address] RBC (Bld) [#/Vol] 4.42 10*6/uL Normal 4.2-5.4 [facility] Comment on above: Order Comment: ADD O N Performed By: #### L 100.0100 #### [facility] [address] [place], [address] RDW SD 43.9 fl Normal 35.1-43.9 [facility] Comment on above: Order Comment: ADD O N Performed By: #### L 100.0100 #### [facility] [address] [place], [address] WBC (Bld) [#/Vol] 13.6 10*3/uL High 4.4-11.0 [facility] Comment on above: Order Comment: ADD O N Performed By: #### L 100.0100 #### [facility] [address] [place], [address] Carbon dioxide, total [Moles /volume] in Central venous bloodOrdered By: Jennifer Willard on 08-04-2024 CO2 [Moles/Vol] 21.9 mmol/L 21.0-32.0 [facility] Chloride assayOrdered By: David Willard on 08-04-2024 Chloride [Moles/Vol] 104 mmol/L 98-108 [facility] Comprehensive Metabolic Prof ilon 08-04-2024 Albumin [Mass/Vol] 3.8 g/dL Normal 3.5-5.0 [facility] Comment on above: Performed By: #### L 7400.0353 #### [facility] [address] [place], [address] Albumin/Globulin [Mass ratio] 1.2 {ratio} Normal 0.9-2.4 [facility] Comment on above: Performed By: #### L 7400.0353 #### [facility] [address] [place], [address] ALK PHOS 52 U/L Normal 35-104 [facility] Comment on above: Performed By: #### L 7400.0353 #### [facility] [address] [place], [address] ALT [Catalytic activity/Vol] 38 U/L High <=34 [facility] Comment on above: Performed By: #### L 7400.0353 #### [facility] [address] [place], [address] AST [Catalytic activity/Vol] 22 U/L Normal <=31 [facility] Comment on above: Performed By: #### L 7400.0353 #### [facility] [address] [place], [address] Bilirubin [Mass/Vol] 0.33 mg/dL Normal 0.00-1.30 [facility] Comment on above: Performed By: #### L 7400.0353 #### [facility] [address] [place], [address] BUN/CRE 12.9 RATIO Normal 10-20 [facility] Comment on above: Performed By: #### L 7400.0353 #### [facility] [address] [place], [address] Calcium [Mass/Vol] 9.3 mg/dL Normal 7.6-11.0 [facility] Comment on above: Performed By: #### L 7400.0353 #### [facility] [address] [place], [address] Chloride [Moles/Vol] 104 mmol/L Normal 98-108 [facility] Comment on above: Performed By: #### L 7400.0353 #### [facility] [address] [place], [address] CO2 [Moles/Vol] 21.9 mmol/L Normal 21.0-32.0 [facility] Comment on above: Performed By: #### L 7400.0353 #### [facility] [address] [place], [address] Creatinine [Mass/Vol] 0.79 mg/dL Normal 0.70-1.20 [facility] Comment on above: Performed By: #### L 7400.0353 #### [facility] [address] [place], [address] GAP 10 Normal 5-15 [facility] Comment on above: Performed By: #### L 7400.0353 #### [facility] [address] [place], [address] GFR/1.73 sq M.predicted among non-blacks MDRD (S/P/Bld) [Vol rate/Area] 106 mL/min/{1.73_m2} Normal >60 [facility] Comment on above: Result Comment: mL/m in/1.73m2 CKD-EPI Creatinine Equation (2020) Performed By: #### L 7400.0353 #### [facility] [address] [place], [address] Globulin (S) [Mass/Vol] 3.1 g/dL Normal 2.2-4.2 [place] Comment on above: Performed By: #### L 7400.0353 #### [facility] [address] [place], [address] Glucose [Mass/Vol] 91 mg/dL Normal 70-99 [facility] Comment on above: Performed By: #### L 7400.0353 #### [facility] [address] [place], [address] Potassium [Moles/Vol] 4.1 mmol/L Normal 3.3-5.1 [facility] Comment on above: Performed By: #### L 7400.0353 #### [facility] [address] [place], [address] Sodium [Moles/Vol] 136 mmol/L Normal 133-145 [facility] Comment on above: Performed By: #### L 7400.0353 #### [facility] [address] [place], [place], [address] T PROT 6.9 g/dL Normal 5.9-8.4 [facility] Comment on above: Performed By: #### L 7400.0353 #### [facility] [address] [place], [place], [address] Urea nitrogen [Mass/Vol] 10 mg/dL Normal 4-19 [facility] Comment on above: Performed By: #### L 7400.0353 #### [facility] [address] [place], [address] Creatinine Unsp time (U) [Ma ss/Vol]Ordered By: Jennifer Willard on 08-04-2024 Creatinine (U) [Mass/Vol] 169.00 mg/dL 28.00-217.00 [facility] Eosinophil percentageOrdered By: Jennifer Willard on 08-04-2024 Eosinophils/100 WBC (Bld) 0.7 % 0-5 [facility] Erythrocyte distribution wid th (RBC) [Ratio]Ordered By: Jennifer Willard on 08-04-2024 Erythrocyte distribution width (RBC) [Entitic vol] 43.9 fL 35.1-43.9 [facility] Erythrocyte distribution wid th ratioOrdered By: Jennifer Willard on 08-04-2024 Erythrocyte distribution width (RBC) [Ratio] 13.4 % 11.6-14.6 [facility] Erythrocyte distribution wid th standard deviationOrdered By: Jennifer Willard on 08-04-2024 Erythrocyte distribution width (RBC) [Ratio] 43.9 fl 35.1-43.9 [facility] GFR/1.73 sq M.predicted keisha g non-blacks MDRD (S/P/Bld) [Vol rate/Area]Ordered By: Jennifer Willard on 08-04-2024 Estimated GFR (MDRD) Non-Af Amer 106 >60 [facility] Comment on above: mL/min/1.73m2 CKD-EP I Creatinine Equation (2020) Glomerular filtration rate ( GFR) estimation/1.73 sq m using serum, plasma, or whole bOrdered By: Jennifer Willard on 08-04-2024 GFR/1.73 sq M.predicted among non-blacks MDRD (S/P/Bld) [Vol rate/Area] 106 mL/min/{1.73_m2} >60 [facility] Comment on above: mL/min/1.73m2 CKD-EP I Creatinine Equation (2020) Hematocrit Auto (Bld) [Volum e fraction]Ordered By: Jennifer Willard on 08-04-2024 Hematocrit (Bld) [Volume fraction] 39.8 % 37-47 [facility] Hemoglobin measurementOrdere d By: Jennifer Willard on 08-04-2024 Hemoglobin (Bld) [Mass/Vol] 13.2 g/dL 12.0-15.0 [facility] Immature granulocytes/100 WB C Auto (Bld)Ordered By: Jennifer Willard on 08-04-2024 Immature granulocytes/100 WBC (Bld) 2.300 % High 0.0-0.9 [facility] Comment on above: IG% - Immature Granu locytes (promyelocytes, myelocytes and metamyelocytes) > 1% indicates that a LEFT SHIFT is Present. Laboratory - Chemistry and C hemistry - challengeOrdered By: Jennifer Willard on 08-04-2024 AST [Catalytic activity/Vol] 22 U/L <32 [facility] Lymphocytes Auto (Unsp spec) [#/Vol]Ordered By: Jennifer Willard on 08-04-2024 Lymphocytes (Bld) [#/Vol] 2.39 10*3/uL 0.83-4.51 [facility] Lymphocytes/100 WBC Auto (Un sp spec)Ordered By: Jennifer Willard on 08-04-2024 Lymphocytes/100 WBC (Bld) 17.6 % Low 19-41 [facility] MCV (mean corpuscular volume ) determinationOrdered By: Jennifer Willard on 08-04-2024 MCV (RBC) [Entitic vol] 90.0 fL 81-99 [facility] Mean corpuscular hemoglobin (MCH) determinationOrdered By: Jennifer Willard on 08-04-2024 MCH (RBC) [Entitic mass] 29.9 pg 27.0-32.0 [facility] Mean corpuscular hemoglobin concentration (MCHC) determinationOrdered By: Jennifer Willard on 08-04-2024 MCHC (RBC) [Mass/Vol] 33.2 g/dL 32-36 [facility] Mean platelet volume determi nationOrdered By: Jennifer Willard on 08-04-2024 Platelet mean volume (Bld) [Entitic vol] 11.6 fL 6.2-12.0 [facility] Monocyte percentageOrdered B y: Jennifer Willard on 08-04-2024 Monocytes/100 WBC (Bld) 5.8 % 0-10 [facility] Neutrophil percentageOrdered By: Jennifer Willard on 08-04-2024 Neutrophils/100 WBC (Bld) 73.1 % High 47-70 [facility] Nucleated red blood cell per centageOrdered By: Jennifer Willard on 08-04-2024 Nucleated RBC/100 WBC (Bld) [Ratio] 0 % 0-5 [facility] Picture [employer]anger Office Visit Reporton 08-04-2024 Picture [facility] Office Visit Report [facility] [address], [address] [place] [address] OFFICE VISIT Date of Service: 08/04/24 MR#: [id number] Acct: [id number] Name: LUCIANO KENDALL Rep #: [id number] : 2000 Provider: ANY dykes Age/Sex: 24/F [place] [facility] [place]: [place] Intake Vital Signs 07/07/24 15:11 08/04/24 10:40 Height 5 ft 8 in 5 ft 8 in Weight: 235 lb 6 oz BMI 35.8 BP 124/82 H Intake Visit Reasons: 18 wk ob Chief Complaint: 18 Week OB Gastroenterology Nurse Required: No Is patient in pain?: No Allergies No Known Allergies Allergy (Verified 08/04/24 10:39) Medications ???Medication ???Instructions ???Recorded ???Confirmed ???Type Bacillus coagulans 250 million 2 tab PO ONCE 05/26/24 08/04/24 Hi story cell chewable tablet (Probiotic (B. 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) Congenital fekpfy-ktkldcy-somxl reflux Gallstones UTI (urinary tract infection) Asthma Surgical History Hx of cholecystectomy Hx of tonsillectomy Family History Father Diabetes Type 1 Aunt Thyroid disorder Maternal Mother Thyroid disorder enlarged Grandmother Breast cancer Paternal Social History adopted: No household members: significant other 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al status: employed 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al exposures/hazards: No pets and animals: Yes (Avoid litter box) pets and animals: cat(s) history of recent travel: Yes () out of country: Yes sexually active: Yes Smoking Status: Current every day smoker Electronic Cigarette Use: with nicotine quit status: considering quitting alcohol intake: current alcohol intake frequency: a few times a month details: Not while substance use type: does not use well-balanced diet: about half the time caffeine: Yes Type: coffee Number of servings: 1 eating out: 1-3 times/week during the past year weight has: decreased > 10 lbs what type of physical activity do you participate in: walking and weight training frequency: 1-2 times per week duration: 60-90 minutes/day sid/lutheran: None seatbelt use: always do you feel safe at home: Yes additional social history: significant other- Juan History 1 Elective abortions Hx Para 0 Spontaneous abortions Hx # Term Pregnancies Ectopic pregnancies Hx # Pregnancies Multiple births # of living children HPI 18 wk ob Details: LUCIANO KENDALL is a 24 year old who presents for routine OB visit. OB Visit TERRENCE Calculator Estimated Delivery Date Method Current WG Current Estimate 01/06/25 LMP (Certain) 17w 6d Other Estimates 01/09/25 Ultrasound #1 17w 3d Expected Delivery Route/Plan Labor Preferences- CB/BF classes: [] labor support person: [] labor intervention preferences: [] pain management options preferred: [] cut cord/dad catch: [] : [] PP control planned: [] discussed possible routes of delivery and associated risks: [] special requests: [] Specific Issue/Plans Covid status: [] Flu vaccine: [] Tdap vaccine: [] Rhogam: [] LARC form signed: [] Problem list reviewed and updated with the most current plan of care details and appropriate orders placed. Relevant counseling for the gestational age provided. Continue routine care and follow up unless otherwise noted in visit notes/problem list details Initial Weight: 226 lb Date -???-???-???-???-???- ???-???-???-???-???-? ??-???- EGA Weight BP Urine Prot -???-???-???-???-???- ???-???-???-???-???-? ??-???- Glucose FHR FuHt Pres Dilation -???-???-???-???-???- ???-???-???-???-???-? ??-???- Effaced St Visit Note 06/04/24 -???-???-???-???-???- ???-???-???-???-???-? ??-???- 9w 1d 226 lb 4 oz (+4 oz) 128/82 -???-???-???-???-???- ???-???-???-???-???-? ??-???- 175 -???-???-???-???-???- ???-???-???-???-???-? ??-???- KW- CRL cons with dates. accepts nipt. 07/07/24 -???-???-???-???-???- ???-???-???-???-???-? ??-???- 13w 6d 228 lb 8 oz (+2 lb 8 oz) 131/84 Negativ (more content not included)... Normal [facility] Platelet countOrdered By: David Willard on 08-04-2024 Platelets (Bld) [#/Vol] 213 10*3/uL 150-450 [facility] Potassium (Unsp spec) [Mass/ Vol]Ordered By: Jennifer Willard on 08-04-2024 Potassium [Moles/Vol] 4.1 mmol/L 3.3-5.1 [facility] Potassium measurement (mass/ volume)Ordered By: Jennifer Willard on 08-04-2024 Potassium (Unsp spec) [Mass/Vol] 4.1 mmol/L 3.3-5.1 [facility] Protein+Creatinine Ratio,Uri neon 08-04-2024 PROT:CRE RATIO 68 mg/g CRE Normal 0-200 [facility] Comment on above: Performed By: #### L 7700.0353 #### [facility] [address] [place], [id number] Protein (U) [Mass/Vol] 11.5 mg/dL Normal 0.0-12.0 [facility] Comment on above: Performed By: #### L 7400.0353 #### [facility] [address] [place], [place], [address] UR CREAT 169.00 mg/dL Normal 28.00-217.00 [facility] Comment on above: Performed By: #### L 7400.0353 #### [facility] [address] [place], [place], [address] Protein/Creatinine (U) [Mass ratio]Ordered By: Jennifer Willard on 08-04-2024 Urine Protein/Creatinine Ratio 68 mg/g CRE 0-200 [facility] RBC Auto (Bld) [#/Vol]Ordere d By: Jennifer Willard on 08-04-2024 RBC (Bld) [#/Vol] 4.42 10*6/uL 4.2-5.4 [facility] Random urine creatinine mika urement (mass/volume)Ordered By: Jennifer Willard on 08-04-2024 Creatinine Unsp time (U) [Mass/Vol] 169.00 mg/dL 28.00-217.00 [facility] Serum creatinine measurement (mass/volume)Ordered By: Jennifer Willard on 08-04-2024 Creatinine [Mass/Vol] 0.79 mg/dL 0.70-1.20 [facility] Serum globulin measurementOr dered By: Jennifer Willard on 08-04-2024 Globulin (S) [Mass/Vol] 3.1 g/dL 2.2-4.2 [facility] Serum glucose measurement (m ass/volume)Ordered By: Jennifer Willard on 08-04-2024 Glucose [Mass/Vol] 91 mg/dL 70-99 [facility] Serum or plasma alanine terrazas otransferase (ALT) measurementOrdered By: Jennifer Willard on 08-04-2024 ALT [Catalytic activity/Vol] 38 U/L High <35 [facility] Serum or plasma albumin mika urement (mass/volume)Ordered By: Jennifer Willard on 08-04-2024 Albumin [Mass/Vol] 3.8 g/dL 3.5-5.0 [facility] Serum or plasma albumin/glob ulin mass ratioOrdered By: Jennifer Willard on 08-04-2024 Albumin/Globulin [Mass ratio] 1.2 {ratio} 0.9-2.4 [facility] Serum or plasma alkaline lebron sphatase measurementOrdered By: Jennifer Willard on 08-04-2024 ALP [Catalytic activity/Vol] 52 U/L 35-104 [facility] Serum or plasma calcium mika urement (mass/volume)Ordered By: Jennifer Willard on 08-04-2024 Calcium [Mass/Vol] 9.3 mg/dL 7.6-11.0 [facility] Serum or plasma urea nitroge n measurement (mass/volume)Ordered By: Jennifer Willard on 08-04-2024 Urea nitrogen [Mass/Vol] 10 mg/dL 4-19 [facility] Sodium levelOrdered By: Constantine Willard on 08-04-2024 Sodium [Moles/Vol] 136 mmol/L 133-145 [facility] Total proteinOrdered By: Merlin Willard on 08-04-2024 Protein [Mass/Vol] 6.9 g/dL 5.9-8.4 [facility] Urine protein measurement (m ass/volume)Ordered By: Jennifer Willard on 08-04-2024 Protein (U) [Mass/Vol] 11.5 mg/dL 0.0-12.0 [facility] Urine protein/creatinine mas s ratioOrdered By: Jennifer Willard on 08-04-2024 Protein/Creatinine (U) [Mass ratio] 68 mg/g CRE 0-200 [facility] White blood cell (WBC) count Ordered By: Jennifer Willard on 08-04-2024 WBC (Bld) [#/Vol] 13.6 10*3/uL High 4.4-11.0 [facility] Absolute lymphocyte countOrd ered By: Susie Solomon on 07-07-2024 Lymphocytes Auto (Unsp spec) [#/Vol] 2.97 10*3/uL 0.83-4.51 [facility] Absolute neutrophil countOrd ered By: Susie Solomon on 07-07-2024 Neutrophils (Bld) [#/Vol] 8.9 10*3/uL High 2.0-7.7 [facility] Automated lymphocyte count a s percentage of total leukocytesOrdered By: Susie Solomon on 07-07-2024 Lymphocytes/100 WBC Auto (Unsp spec) 22.8 % 19-41 [facility] Basophil percentageOrdered B y: Susie Juanito on 07-07-2024 Basophils/100 WBC (Bld) 0.3 % 0-1 [facility] CBC W/Diff, Automatedon 06-27 Absolute Lymph 2.97 X10 3/uL Normal 0.83-4.51 [facility] Comment on above: Performed By: #### L 100.0100, L3890.6102, L501.9985, L900.0098, BTS, L3890.6006, L3890.6301, L509.8002, L509.4006 #### [facility] [address] [place], [address] Absolute Neut 8.9 X10 3/uL High 2.0-7.7 [facility] Comment on above: Performed By: #### L 100.0100, L3890.6102, L501.9985, L900.0098, BTS, L3890.6006, L3890.6301, L509.8002, L509.4006 #### [facility] [address] [place], [address] Basophils/100 WBC (Bld) 0.3 % Normal 0-1 [facility] Comment on above: Performed By: #### L 100.0100, L3890.6102, L501.9985, L900.0098, BTS, L3890.6006, L3890.6301, L509.8002, L509.4006 #### [facility] [address] [place], [address] Eosinophils/100 WBC (Bld) 1.0 % Normal 0-5 [facility] Comment on above: Performed By: #### L 100.0100, L3890.6102, L501.9985, L900.0098, BTS, L3890.6006, L3890.6301, L509.8002, L509.4006 #### [facility] [address] [place], [address] Erythrocyte distribution width (RBC) [Ratio] 13.0 % Normal 11.6-14.6 [facility] Comment on above: Performed By: #### L 100.0100, L3890.6102, L501.9985, L900.0098, BTS, L3890.6006, L3890.6301, L509.8002, L509.4006 #### [facility] [address] [place], [address] Hematocrit (Bld) [Volume fraction] 37.1 % Normal 37-47 [facility] Comment on above: Performed By: #### L 100.0100, L3890.6102, L501.9985, L900.0098, BTS, L3890.6006, L3890.6301, L509.8002, L509.4006 #### [facility] [address] [place], [address] Hemoglobin (Bld) [Mass/Vol] 12.6 g/dL Normal 12.0-15.0 [facility] [facility] Comment on above: Performed By: #### L 100.0100, L3890.6102, L501.9985, L900.0098, BTS, L3890.6006, L3890.6301, L509.8002, L509.4006 #### [facility] [address] [place], [address] IG% 1.400 High 0.0-0.9 [facility] Comment on above: Result Comment: IG% - Immature Granulocytes (promyelocytes, myelocytes and metamyelocytes) > 1% indicates that a LEFT SHIFT is Present. Performed By: #### L 100.0100, L3890.6102, L501.9985, L900.0098, BTS, L3890.6006, L3890.6301, L509.8002, L509.4006 #### [facility] [address] [place], [address] Lymphocytes/100 WBC (Bld) 22.8 % Normal 19-41 [facility] Comment on above: Performed By: #### L 100.0100, L3890.6102, L501.9985, L900.0098, BTS, L3890.6006, L3890.6301, L509.8002, L509.4006 #### [facility] [address] [place], [address] MCH (RBC) [Entitic mass] 29.8 pg Normal 27.0-32.0 [facility] Comment on above: Performed By: #### L 100.0100, L3890.6102, L501.9985, L900.0098, BTS, L3890.6006, L3890.6301, L509.8002, L509.4006 #### [facility] [address] [place], [address] MCHC (RBC) [Mass/Vol] 34.0 g/dL Normal 32-36 [facility] Comment on above: Performed By: #### L 100.0100, L3890.6102, L501.9985, L900.0098, BTS, L3890.6006, L3890.6301, L509.8002, L509.4006 #### [facility] [address] [place], [address] MCV (RBC) [Entitic vol] 87.7 fL Normal 81-99 [facility] Comment on above: Performed By: #### L 100.0100, L3890.6102, L501.9985, L900.0098, BTS, L3890.6006, L3890.6301, L509.8002, L509.4006 #### [facility] [address] [place], [address] Monocytes/100 WBC (Bld) 6.1 % Normal 0-10 [facility] Comment on above: Performed By: #### L 100.0100, L3890.6102, L501.9985, L900.0098, BTS, L3890.6006, L3890.6301, L509.8002, L509.4006 #### [facility] [address] [place], [address] Neutrophils/100 WBC (Bld) 68.4 % Normal 47-70 [facility] Comment on above: Performed By: #### L 100.0100, L3890.6102, L501.9985, L900.0098, BTS, L3890.6006, L3890.6301, L509.8002, L509.4006 #### [facility] [address] [place], [address] Nucleated RBC (Bld) [#/Vol] 0 10*3/uL Normal 0-5 [facility] Comment on above: Performed By: #### L 100.0100, L3890.6102, L501.9985, L900.0098, BTS, L3890.6006, L3890.6301, L509.8002, L509.4006 #### [facility] [address] [place], [address] Platelet mean volume (Bld) [Entitic vol] 11.3 fL Normal 6.2-12.0 [facility] Comment on above: Performed By: #### L 100.0100, L3890.6102, L501.9985, L900.0098, BTS, L3890.6006, L3890.6301, L509.8002, L509.4006 #### [facility] [address] [place], [address] Platelets (Bld) [#/Vol] 225 10*3/uL Normal 150-450 [facility] Comment on above: Performed By: #### L 100.0100, L3890.6102, L501.9985, L900.0098, BTS, L3890.6006, L3890.6301, L509.8002, L509.4006 #### [facility] [address] [place], [address] RBC (Bld) [#/Vol] 4.23 10*6/uL Normal 4.2-5.4 [facility] Comment on above: Performed By: #### L 100.0100, L3890.6102, L501.9985, L900.0098, BTS, L3890.6006, L3890.6301, L509.8002, L509.4006 #### [facility] [address] [place], [address] RDW SD 41.6 fl Normal 35.1-43.9 [facility] Comment on above: Performed By: #### L 100.0100, L3890.6102, L501.9985, L900.0098, BTS, L3890.6006, L3890.6301, L509.8002, L509.4006 #### [facility] [address] [place], [address] WBC (Bld) [#/Vol] 13.0 10*3/uL High 4.4-11.0 [facility] Comment on above: Performed By: #### L 100.0100, L3890.6102, L501.9985, L900.0098, BTS, L3890.6006, L3890.6301, L509.8002, L509.4006 #### [facility] [address] [place], [address] Eosinophil percentageOrdered By: Susie Solomon on 07-07-2024 Eosinophils/100 WBC (Bld) 1.0 % 0-5 [facility] Erythrocyte distribution wid th ratioOrdered By: Susie Solomon on 07-07-2024 Erythrocyte distribution width (RBC) [Ratio] 13.0 % 11.6-14.6 [facility] Erythrocyte distribution wid th standard deviationOrdered By: Susie Solomon on 07-07-2024 Erythrocyte distribution width (RBC) [Entitic vol] 41.6 fL 35.1-43.9 [facility] Erythrocyte distribution width (RBC) [Ratio] 41.6 fl 35.1-43.9 [facility] HBV surface Ag Ql (S)Ordered By: Susie Solomon on 07-07-2024 Hepatitis B Surface Antigen Non-Reactive Nonreactive [facility] Comment on above: Reactive: Presumptiv e evidence of HBV. Repeatedly reactive samples must be confirmed using a neutralization test ([employer] HBsAg Confirmatory Test)Non-Reactive: HBsAg not detected; does not exclude the possibility of exposure to HBV Hematocrit Auto (Bld) [Volum e fraction]Ordered By: Susie Solomon on 07-07-2024 Hematocrit (Bld) [Volume fraction] 37.1 % 37-47 [facility] Hemoglobin A1con 07-07-2024 HbA1c (Bld) [Mass fraction] 5.1 % Low <=5.6 [facility] Comment on above: Performed By: #### L 7400.0353 #### [facility] [place], [address] Hemoglobin A1c percentageOrd ered By: Susie Solomon on 07-07-2024 HbA1c (Bld) [Mass fraction] 5.1 % Low >5.7 [facility] Hemoglobin measurementOrdere d By: Susie Solomon on 07-07-2024 Hemoglobin (Bld) [Mass/Vol] 12.6 g/dL 12.0-15.0 [facility] Hepatitis C antibodyOrdered By: Susie Solomon on 07-07-2024 Hepatitis C Antibody Non-Reactive Nonreactive [facility] Comment on above: Reactive: Presumptiv e evidence of antibodies to HCV. Follow CDC recommendations for supplemental testing.Non-Reactive: Antibodies to HCV were not detected; does not exclude the possibility of exposure to HCVReactive Results are presumptive evidence of antibodies to HCV. Follow CDC recommendations for supplemental testing.Order confirmation testing: HCV Quant by PCR testing - HCVPCR #[id number] Non Reactive: < 0.8 Equivocal: >/= 0.8 to < 1.0 Reactive: >/= 1.0The [facility] requires that a reactive/equivocal HCV antibody result be sent out for confirmation. HCV Quant by PCR testing. Immature granulocytes/100 WB C Auto (Bld)Ordered By: Susie Solomon on 07-07-2024 Immature granulocytes/100 WBC (Bld) 1.400 % High 0.0-0.9 [facility] Comment on above: IG% - Immature Granu locytes (promyelocytes, myelocytes and metamyelocytes) > 1% indicates that a LEFT SHIFT is Present. L3890.6006on 07-07-2024 HIV Non-Reactive Normal Nonreactive [facility] Comment on above: Result Comment: Non- Reactive Reactive Repeatedly reactive samples must be confirmed according to CDC recommended confirmatory algorithms. The subresults for either HIVAG or AHIV can be used as an aid in the selection of the confirmation algorithm for reactive samples. Send out specimens with Reactive results to [facility] for confirmation. Order the HIV antibody detection and differentiation: [id number] Performed By: #### L 7400.0353 #### [facility] [address] [place], [place], [address] L3890.6102on 07-07-2024 HEP B Surf Ag Non-Reactive Normal Nonreactive [facility] Comment on above: Result Comment: Reac tive: Presumptive evidence of HBV. Repeatedly reactive samples must be confirmed using a neutralization test ([employer] HBsAg Confirmatory Test) Non-Reactive: HBsAg not detected; does not exclude the possibility of exposure to HBV Performed By: #### L 7400.0353 #### [facility] [address] [place], [place], [address] L3890.6301on 07-07-2024 Hepatitis C Ab Non-Reactive Normal Nonreactive [facility] Comment on above: Result Comment: Reac tive: Presumptive evidence of antibodies to HCV. Follow CDC recommendations for supplemental testing. Non-Reactive: Antibodies to HCV were not detected; does not exclude the possibility of exposure to HCV Reactive Results are presumptive evidence of antibodies to HCV. Follow CDC recommendations for supplemental testing. Order confirmation testing: HCV Quant by PCR testing - HCVPCR #[id number] Non Reactive: < 0.8 Equivocal: >/= 0.8 to < 1.0 Reactive: >/= 1.0 The CDC requires that a reactive/equivocal HCV antibody result be sent out for confirmation. HCV Quant by PCR testing. Performed By: #### L 7400.0353 #### [facility] [address] [place], [address] L509.4006on 07-07-2024 Rubella IgG REAC Normal Nonreactive [facility] Comment on above: Result Comment: Anti body Result: Interpretation Non-Reactive: Non-Immune Reactive: Immune The following results were obtained with the [employer] Rubella IgG assay. Results from assays of other manufacturers cannot be used interchangeably. Performed By: #### L 7400.0353 #### [facility] [address] [facility] [place], [address] L509.8002on 07-07-2024 Syphilis Abs Non-Reactive Normal Nonreactive [facility] Comment on above: Performed By: #### L 7400.0353 #### [facility] [address] [facility] [address] [place], [place], [address] Laboratory - Chemistry and C hemistry - challengeOrdered By: Nita Mcintosh on 07-07-2024 Glucose Ql (U) Negative [facility] - Microbiology an d Antimicrobial susceptibilityOrdered By: Susie Solomon on 07-07-2024 HBV surface Ag Ql (S) Non-Reactive Nonreactive [facility] Comment on above: Reactive: Presumptiv e evidence of HBV. Repeatedly reactive samples must be confirmed using a neutralization test ([employer] HBsAg Confirmatory Test)Non-Reactive: HBsAg not detected; does not exclude the possibility of exposure to HBV Laboratory - UrinalysisOrder ed By: Nita Mcintosh on 07-07-2024 Protein Ql (U) Negative [facility] Lymphocytes Auto (Unsp spec) [#/Vol]Ordered By: Susie Solomon on 07-07-2024 Lymphocytes (Bld) [#/Vol] 2.97 10*3/uL 0.83-4.51 [facility] Lymphocytes/100 WBC Auto (Un sp spec)Ordered By: Susie Solomon on 07-07-2024 Lymphocytes/100 WBC (Bld) 22.8 % 19-41 [facility] MCV (mean corpuscular volume ) determinationOrdered By: Ssuie Solomon on 07-07-2024 MCV (RBC) [Entitic vol] 87.7 fL 81-99 [facility] Mean corpuscular hemoglobin (MCH) determinationOrdered By: Susie Solomon on 07-07-2024 MCH (RBC) [Entitic mass] 29.8 pg 27.0-32.0 [facility] Mean corpuscular hemoglobin concentration (MCHC) determinationOrdered By: Susie Solomon on 07-07-2024 MCHC (RBC) [Mass/Vol] 34.0 g/dL 32-36 [facility] Mean platelet volume determi nationOrdered By: Susie Solomon on 07-07-2024 Platelet mean volume (Bld) [Entitic vol] 11.3 fL 6.2-12.0 [facility] Miscellaneous procedureOrder ed By: Susie Solomon on 07-07-2024 Miscellaneous Test Comment SEE SCANNED REPORT [facility] Monocyte percentageOrdered B y: Susie Solomon on 07-07-2024 Monocytes/100 WBC (Bld) 6.1 % 0-10 [facility] NATERAon 07-07-2024 NATURA SEE SCANNED REPORT Normal [facility] Comment on above: Order Comment: Comme nts: NIPT with Gender Performed By: #### L 100.0100, L3890.6102, L501.9985, L900.0098, BTS, L3890.6006, L3890.6301, L509.8002, L509.4006 #### [facility] [address] [place], [place], [address] Neutrophil percentageOrdered By: Susie Solomon on 07-07-2024 Neutrophils/100 WBC (Bld) 68.4 % 47-70 [facility] No Panel InformationOrdered By: Susie Solomon on 07-07-2024 HIV (1&2) Antibody Non-Reactive Nonreactive [facility] Comment on above: Non-ReactiveReactive Repeatedly reactive samples must be confirmed according to CDC recommended confirmatory algorithms. The subresults for either HIVAG or AHIV can be used as an aid in the selection of the confirmation algorithm for reactive samples.Send out specimens with Reactive results to [facility] for confirmation.Order the HIV antibody detection and differentiation: #[id number] Nucleated red blood cell per centageOrdered By: Susie Solomon on 07-07-2024 Nucleated RBC/100 WBC (Bld) [Ratio] 0 % 0-5 [facility] Picture [facility] Office Visit Reporton 07-07-2024 Picture Hanger Office Visit Report [facility] [address], [address] [place] [address] OFFICE VISIT Date of Service: 07/07/24 MR#: [id number] Acct: [id number] Name: LUCIANO KENDALL Rep #: [id number] : 2000 Provider: Dr. Nita motley MD Age/Sex: 24/F [place] [facility] [place]: [place]igned Intake Vital Signs 05/04/24 14:48 06/04/24 13:01 07/07/24 15:11 Height 5 ft 8 in 5 ft 8 in 5 ft 8 in Weight: 226 lb 4 oz 228 lb 8 oz BMI 34.4 34.7 BP 128/82 H 131/84 H Intake Visit Reasons: 13wk OB Gastroenterology Nurse Required: No Is patient in pain?: No Feel stressed/tense/nervou s/anxious/difficulty sleeping: not at all Allergies No Known Allergies Allergy (Verified 07/07/24 15:12) Medications ???Medication ???Instructions ???Recorded ???Confirmed ???Type Bacillus coagulans 250 million 2 tab PO ONCE 05/26/24 07/07/24 Hi story cell chewable tablet (Probiotic (B. coagulans)) PNV 153-FA 400 mcg-om3 35 mg-dha tab PO 05/26/24 07/07/24 History 25 mg-epa 5 mg-fish oil chew tablet ascorbate calcium (vitamin C) 500 500 mg PO QDAY 05/26/24 07/07/24 History mg tablet ferrous sulfate 137 mg (45 mg 137 mg PO QDAY 05/26/24 07/07/24 H istory iron) tablet,extended release (Slow Fe) Last Menstrual Period: 04/01/24 Zika: Zika virus screening: Negative : No PFSH PFSH Medical History Congenital ueherj-cuxavya-xgtho reflux Gallstones UTI (urinary tract infection) Asthma Surgical History Hx of cholecystectomy Hx of tonsillectomy Family History Father Diabetes Type 1 Aunt Thyroid disorder Maternal Mother Thyroid disorder enlarged Grandmother Breast cancer Paternal Social History adopted: No household members: significant other 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al status: employed 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al exposures/hazards: No pets and animals: Yes (Avoid litter box) pets and animals: cat(s) history of recent travel: Yes () out of country: Yes sexually active: Yes Smoking Status: Current every day smoker Electronic Cigarette Use: with nicotine quit status: considering quitting alcohol intake: current alcohol intake frequency: a few times a month details: Not while substance use type: does not use well-balanced diet: about half the time caffeine: Yes Type: coffee Number of servings: 1 eating out: 1-3 times/week during the past year weight has: decreased > 10 lbs what type of physical activity do you participate in: walking and weight training frequency: 1-2 times per week duration: 60-90 minutes/day sid/lutheran: None seatbelt use: always do you feel safe at home: Yes additional social history: significant other- Juan History 1 Elective abortions Hx Para 0 Spontaneous abortions Hx # Term Pregnancies Ectopic pregnancies Hx # Pregnancies Multiple births # of living children HPI 13wk OB Details: LUCIANO KENDALL is a 24 year old who presents for routine OB visit. OB Visit TERRENCE Calculator Estimated Delivery Date Method Current WG Current Estimate 01/06/25 LMP (Certain) 13w 6d Other Estimates 01/09/25 Ultrasound #1 13w 3d Expected Delivery Route/Plan Labor Preferences- CB/BF classes: [] labor support person: [] labor intervention preferences: [] pain management options preferred: [] cut cord/dad catch: [] : [] PP control planned: [] discussed possible routes of delivery and associated risks: [] special requests: [] Specific Issue/Plans Covid status: [] Flu vaccine: [] Tdap vaccine: [] Rhogam: [] LARC form signed: [] Problem list reviewed and updated with the most current plan of care details and appropriate orders placed. Relevant counseling for the gestational age provided. Continue routine care and follow up unless otherwise noted in visit notes/problem list details Initial Weight: 226 lb Date -???-???-???-???-???- ???-???-???-???-???-? ??-???- EGA Weight BP Urine Prot -???-???-???-???-???- ???-???-???-???-???-? ??-???- Glucose FHR FuHt Pres Dilation -???-???-???-???-???- ???-???-???-???-???-? ??-???- Effaced St Visit Note 06/04/24 -???-???-???-???-???- ???-???-???-???-???-? ??-???- 9w 1d 226 lb 4 oz (+4 oz) 128/82 -???-???-???-???-???- ???-???-???-???-???-? ??-???- 175 -???-???-???-???-???- ???-???-???-???-???-? ??-???- KW- CRL cons with dates. accepts nipt. 07/07/24 -???-???-???-???-???- ???-???-???-???-???-? ??-???- 13w 6d 228 lb 8 oz (+2 lb 8 oz) 131/84 Negative -???-???-???-???-???- ???-???-?? (more content not included)... Normal [facility] Platelet countOrdered By: Diego Solomon on 07-07-2024 Platelets (Bld) [#/Vol] 225 10*3/uL 150-450 [facility] RBC Auto (Bld) [#/Vol]Ordere d By: Susie Solomon on 07-07-2024 RBC (Bld) [#/Vol] 4.23 10*6/uL 4.2-5.4 [facility] Rubella immune status determ ination by IgG antibody assayOrdered By: Susie Solomon on 07-07-2024 Rubella IgG Antibody REAC Nonreactive [facility] Comment on above: Antibody Result: Int erpretationNon-Reactive: Non-ImmuneReactive: ImmuneThe following results were obtained with the [employer] Rubella IgG assay. Results from assays of other manufacturers cannot be used interchangeably. T. pallidum abOrdered By: Diego Solomon on 07-07-2024 Syphilis Total Antibody Non-Reactive Nonreactiv e [facility] Type AND Screenon 07-07-2024 ABO and Rh group Nom (Bld) Blood group O Rh(D) positive Normal [facility] Comment on above: Order Comment: PN Performed By: #### L 100.0100, L3890.6102, L501.9985, L900.0098, BTS, L3890.6006, L3890.6301, L509.8002, L509.4006 #### [facility] [address] [place], [address] White blood cell (WBC) count Ordered By: Susie Solomon on 07-07-2024 WBC (Bld) [#/Vol] 13.0 10*3/uL High 4.4-11.0 [facility] Chlamydia/GC NILDA aptimaon CHLAMY,NUC ACID Negative Normal Negative [facility] Comment on above: Performed By: #### L 100.0100 #### [facility] [address] [place], [place], [address] GC BY NUC ACID Negative Normal Negative [facility] Comment on above: Result Comment: Perf ormed at: =G - [facility] [address] [id number] Agricultural Scientist: Lisa Morris MD, Phone: [phone] Performed By: #### L 100.0100 #### [facility] [address] [place], [address] Urine Cultureon 06-07-2024 URC Below infection level. Mixed Gram Positive Organisms [place] Count <1000 MIXC Mixed contaminants. Submit a new specimen if indicated. Normal [facility] Comment on above: Performed By: #### L 100.0100 #### [facility] [address] [place], [address] C. trachomatis rRNA NILDA+prob e Ql (Unsp spec)Ordered By: Susie Solomon on 06-04-2024 Chlamydia DNA (NILDA) Negative Negative [facility] Chlamydia trachomatis rRNA d etection by probe and target amplification methodOrdered By: Susie Solomon on 06-04-2024 C. trachomatis rRNA NILDA+probe Ql (Unsp spec) Negative Negative [facility] Neisseria gonorrhoeae nuclei c acid detection by amplified probe techniqueOrdered By: Susie Solomon on 06-04-2024 N. gonorrhoeae DNA NILDA+probe Ql (Unsp spec) Negative Negative [facility] Comment on above: Performed at: =G - [facility] [address] [id number] Director: Lisa Morris MD, Phone: [phone] Picture [facility] Office Visit Reporton 06-04-2024 Picture Hanger Office Visit Report [facility] [address], [address] [place] [address] OFFICE VISIT Date of Service: 06/04/24 MR#: [id number] Acct: [id number] Name: LUCIANO KENDALL Rep #: [id number] 17 : 2000 Provider: ALEXANDRA Coughlin ams Age/Sex: 23/F [place] [facility] [place]: Signed Intake Vital Signs 04/15/24 11:31 05/04/24 14:48 06/04/24 13:01 Height 5 ft 8 in 5 ft 8 in 5 ft 8 in Weight: 216 lb 226 lb 4 oz BMI 32.8 34.4 BP 128/71 H 128/82 H Intake Visit Reasons: 9WK NOB LMP 04/01/24 TERRENCE 01/06/25 Chief Complaint: 9wk new OB Accompanied by: Significant Other Is patient in pain?: No Allergies No Known Allergies Allergy (Verified 06/04/24 13:10) Medications ???Medication ???Instructions ???Recorded ???Confirmed ???Type Bacillus coagulans 250 million 2 tab PO ONCE 05/26/24 06/04/24 Hi story cell chewable tablet (Probiotic (B. coagulans)) PNV 153-FA 400 mcg-om3 35 mg-dha tab PO 05/26/24 06/04/24 History 25 mg-epa 5 mg-fish oil chew tablet ascorbate calcium (vitamin C) 500 500 mg PO QDAY 05/26/24 06/04/24 History mg tablet ferrous sulfate 137 mg (45 mg 137 mg PO QDAY 05/26/24 06/04/24 H istory iron) tablet,extended release (Slow Fe) Last Menstrual Period: 04/01/24 : Yes [facility] Medical History Congenital jiyolc-efwnzwj-geyjf reflux Gallstones UTI (urinary tract infection) Asthma Surgical History Hx of cholecystectomy Hx of tonsillectomy Family History Father Diabetes Type 1 Aunt Thyroid disorder Maternal Mother Thyroid disorder enlarged Grandmother Breast cancer Paternal Social History adopted: No household members: significant other 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al status: employed 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al exposures/hazards: No pets and animals: Yes (Avoid litter box) pets and animals: cat(s) history of recent travel: Yes (October- [place]) out of country: Yes sexually active: Yes Smoking Status: Current every day smoker Electronic Cigarette Use: with nicotine quit status: considering quitting alcohol intake: current alcohol intake frequency: a few times a month details: Not while substance use type: does not use well-balanced diet: about half the time caffeine: Yes Type: coffee Number of servings: 1 eating out: 1-3 times/week during the past year weight has: decreased > 10 lbs what type of physical activity do you participate in: walking and weight training frequency: 1-2 times per week duration: 60-90 minutes/day sid/lutheran: None seatbelt use: always do you feel safe at home: Yes additional social history: significant other- Juan History 1 Elective abortions Hx Para 0 Spontaneous abortions Hx # Term Pregnancies Ectopic pregnancies Hx # Pregnancies Multiple births # of living children HPI 9WK NOB LMP 04/01/24 TERRENCE 01/06/25 Details: LUCIANO KENDALL is a 23 year old who presents for New OB visit. OB Visit TERRENCE Calculator Estimated Delivery Date Method Current WG Current Estimate 01/06/25 LMP (Certain) 9w 1d Other Estimates 01/09/25 Ultrasound #1 8w 5d Comments: HIV: Urine Culture: Sequential Screen: NIPT Screen: Estimated Due Date: 01/06/25 Expected Delivery Route/Plan Labor Preferences- CB/BF classes: [] labor support person: [] labor intervention preferences: [] pain management options preferred: [] cut cord/dad catch: [] : [] PP control planned: [] discussed possible routes of delivery and associated risks: [] special requests: [] Specific Issue/Plans Covid status: [] Flu vaccine: [] Tdap vaccine: [] Rhogam: [] LARC form signed: [] Problem list reviewed and updated with the most current plan of care details and appropriate orders placed. Relevant counseling for the gestational age provided. Continue routine care and follow up unless otherwise noted in visit notes/problem list details Initial Weight: 226 lb Date -???-???-???-???-???- ???-???-???-???-???-? ??-???- EGA Weight BP Urine Prot -???-???-???-???-???- ???-???-???-???-???-? ??-???- Glucose FHR FuHt Pres Dilation -???-???-???-???-???- ???-???-???-???-???-? ??-???- Effaced St Visit Note 06/04/24 -???-???-???-???-???- ???-???-???-???-???-? ??-???- 9w 1d 226 lb 4 oz (+4 oz) 128/82 -???-???-???-???-???- ???-???-???-???-???-? ??-???- 175 -???-???-???-???-???- ???-???-???-???-???-? ??-???- KW- CRL cons with dates. accepts nipt. Menstrual History Last Menstrual Period: 04/01/24 Repor (more content not included)... Normal [facility] Urine cultureOrdered By: Singh Solomon on 06-04-2024 Bacteria identified Cx Nom (U) Positive Abnormal [facility] PAP I-G w/rfx hrHPV-Aptimaon 04-24-2024 ADEQ Comment Normal . [facility] Comment on above: Order Comment: Specnga men Comment: [id number] Specimen Comment: Source.............Cervix;Endocervix Specimen Comment: No. of containers..01 ThinPrep Vial Result Comment: Sati sfactory for evaluation. No endocervical component is identified. Performed By: #### L 7400.0353 #### [facility] [place], [address] COMM . Normal . [facility] Comment on above: Order Comment: Speci men Comment: [id number] Specimen Comment: Source.............Cervix;Endocervix Specimen Comment: No. of containers..01 ThinPrep Vial Performed By: #### L 7400.0353 #### [facility] [address] [place], [place], [id number] COMMENT Comment Normal . [facility] Comment on above: Order Comment: Speci men Comment: [id number] Specimen Comment: Source.............Cervix;Endocervix Specimen Comment: No. of containers..01 ThinPrep Vial Result Comment: This liquid based ThinPrep(R) pap test was screened with the use of an image guided system. Performed By: #### L 7400.0353 #### [facility] [address] [place], [place], [id number] DIAG Comment Normal . [facility] Comment on above: Order Comment: Speci men Comment: [id number] Specimen Comment: Source.............Cervix;Endocervix Specimen Comment: No. of containers..01 ThinPrep Vial Result Comment: NEGA TIVE FOR INTRAEPITHELIAL LESION OR MALIGNANCY. Performed By: #### L 7400.0353 #### [facility] [address] [facility] [facility] [place], [address] HPV RFLX Comment Normal . [facility] Comment on above: Order Comment: Speci men Comment: [id number] Specimen Comment: Source.............Cervix;Endocervix Specimen Comment: No. of containers..01 ThinPrep Vial Result Comment: The HPV DNA reflex criteria were not met with this specimen result therefore, no HPV testing was performed. Performed at: [address] [id number] Agricultural Scientist: Lisa Morris MD, Phone: [phone] Performed By: #### L 7400.0353 #### [facility] [address] [place], [place], [address] PAPSMR Comment Normal . [facility] Comment on above: Order Comment: Speci men Comment: [id number] Specimen Comment: Source.............Cervix;Endocervix Specimen Comment: No. of containers..01 ThinPrep Vial Result Comment: The Pap smear is a screening test designed to aid in the detection of premalignant and malignant conditions of the uterine cervix. It is not a diagnostic procedure and should not be used as the sole means of detecting cervical cancer. Both false-positive and false-negative reports do occur. Performed By: #### L 7400.0353 #### [facility] [address] [place], [place], [address] PERFORM Comment Normal . [facility] Comment on above: Order Comment: Speci men Comment: [id number] Specimen Comment: Source.............Cervix;Endocervix Specimen Comment: No. of containers..01 ThinPrep Vial Result Comment: Karla Archer, Paper Cup Handle Machine Operator (ASCP) Performed By: #### L 7400.0353 #### [facility] [address] [place], [place], [address] Digital Librarian Cyto stain Nom (C vx/Vag) [ID]Ordered By: Magda Franklin on 04-15-2024 Pap Smear Performed By Comment . [facility] Comment on above: Karla Archer Cytote chnologist (ASCP) Cytology report Cyto stain D oc (Cvx/Vag)Ordered By: Magda Franklin on 04-15-2024 Thin Prep Pap Smear Comment . [facility] Comment on above: The Pap smear is a s creening test designed to aid in thedetection of premalignant and malignant conditions of theuterine cervix. It is not a diagnostic procedure andshould not be used as the sole means of detecting cervicalcancer. Both false-positive and false-negative reports dooccur. Image-guided ThinPrep PapOrd ered By: Magda Franklin on 04-15-2024 Pap Smear Note Comment . [facility] Comment on above: This liquid based Th inPrep(R) pap test was screened withthe use of an image guided system. Image-guided liquid-based Pa pOrdered By: Magda Franklin on 04-15-2024 Pap Smear Diagnosis Comment . [facility] Comment on above: NEGATIVE FOR INTRAEP ITHELIAL LESION OR MALIGNANCY. Image-guided liquid-based ce rvical Pap w high-risk HPV+reflex to HPV 16+18Ordered By: Magda Franklin on 04-15-2024 Human Papillomavirus Screen Comment . [facility] Comment on above: The HPV DNA reflex c riteria were not met with this specimenresult therefore, no HPV testing was performed.Performed at: [facility] [id number] Director: Lisa Morris MD, Phone: [phone] Kidney and Bladderon 024 Kidney and Bladder [facility] Imaging Services [address] [place] [id number] Kidney and Bladder MR#: [id number] Acct: [id number] Name: LUCIANO KENDALL Rep #: [id number] : 2000 F 23 From: Jemal Grimes DO PCP: Dr. Donald Waller MD Status: [facility] Study: Kidney and Bladder Date of Exam: 04/15/24 Exam# [id number] Ordering Dr: Donald Waller MD [id number] INDICATION: UTI EXAMINATION: Ultrasound US Kidney(s) complete (eg, kidneys and bladder) TECHNIQUE: Pollack scale and color doppler images were obtained of the kidneys. COMPARISON: __ FINDINGS: RIGHT KIDNEY: 11.2 x 6.0 x 4.8 cm. The cortex is 16 mm. There is no hydronephrosis. No shadowing calculus, focal lesion or perinephric collection is demonstrated. LEFT KIDNEY: 10.0 x 3.4 x 4.2 cm. The cortex is 15 mm There is no hydronephrosis. No shadowing calculus, focal lesion or perinephric collection is demonstrated. URINARY BLADDER: It has a volume of 695 cc during imaging. US/Kidney and Bladder IMPRESSION: No acute pathology is noted. Electronically Signed: Jemal Grimes DO at 23:21 EST Reading Location ID and State: [facility] / [place] Tel [phone], Service support , CC: Dr. 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) Chief Complaint: annual Gastroenterology Nurse Required: No Is patient in pain?: No Allergies No Known Allergies Allergy (Verified 04/15/24 11:22) Medications ???Medication ???Instructions ???Recorded ???Confirmed ???Type NK 04/15/24 04/15/24 History Is last menstrual period known: Yes Last Menstrual Period: 04/01/24 Post menopausal: No Patient : No : No Control Method: none [facility] Medical History (Updated 04/15/24 @ 15:07 by ANY Childress) Congenital heobua-lqhchin-uzzbl reflux Gallstones UTI (urinary tract infection) Asthma Surgical History Hx of cholecystectomy Hx of tonsillectomy Social History Smoking Status: Current every day smoker Electronic Cigarette Use: with nicotine alcohol intake: current alcohol intake frequency: a few times a month substance use type: does not use History 0 Elective abortions Hx Para Spontaneous abortions Hx # Term Pregnancies Ectopic pregnancies Hx # Pregnancies Multiple births # of living children HPI Encounter for routine gynecological examination Details: LUCIANO KENDALL is a 23 year old who presents for annual exam. She reports she has a history of kidney reflux. She has had 6 UTI's in the past year. She has been referred to a urology (Dr. Mcpherson) from her PCP. She is also having a kidney ultrasound completed today. She has not had a pelvic exam since 2018; does not believe she has had a PAP. She is sexually active. She reports no concerns for STI/D's. Using condoms. Last PAP: never History of abnormal PAP: n.a Last mammogram: age 39 History of abnormal mammogram: n/a Colon cancer screening: age 44 Other preventative health care screenings: Donald Waller- pcp Female Reproductive History Last Menstrual Period: 04/01/24 Cycle Length: 21-35 Bleeding Duration: 5 Questions: metorrhagia: No, sexually active: Yes, dyspareunia: No and PCB: No ROS Const Constitutional: Denies body ache, chills, fatigue or fever(s) Eyes Eyes: Denies change in vision ENT ENT: Denies dizziness Cardio Card: Denies palpitations Resp Resp: Denies cough GI GI: Denies abdominal pain, constipation or nausea : Reports as per HPI; Denies difficulty voiding, dysuria, hematuria, pelvic pain, prolapse symptoms, urinary incontinence, vaginal discharge, vaginal dryness, vaginal odor or vaginal pruritus Skin Skin/Breast: Denies alopecia or rash Neuro Neuro: Denies dizziness Psych Psych: Denies anxiety or depression Endo Endo: Denies cold intolerance, excessive sweating or heat intolerance Exam Const General: cooperative, healthy appearing, comfortable, no acute distress, well groomed and well hydrated Nutritional Appearance: well nourished Orientation: alert, awake and oriented x3 HENMT Head: normal to inspection and normocephalic Ears: hearing grossly normal bilaterally and external ears normal Nose: external nose normal Face and sinus: normal facial exam Eyes General: appearance normal, both eyes and all related structures Neck Neck: normal visual inspection, full ROM and no lymphadenopathy Thyroid: thyroid normal Chest Chest palpation inspection: normal inspection of the chest Breast inspection: normal inspection of the breasts and normal inspection of the axillae Breast palpation: normal palpation of the breasts, normal palpation of the axillae and no axillary lymphadenopathy Resp Effort Inspection: normal respiratory effort, able to speak in complete sentences and symmetric chest movement GI Inspection: normal to inspection Palpation: soft and no hepatosplenomegaly General: bladder normal to palpation External Female Exam: normal external appearance and normal appearance of the urethra Urethra: normal appearance of the urethra Speculum Exam - Vagina: normal appearance of the vagina, normal vaginal discharge, no lesions and nontender Speculum Exam - Cervix: normal appearance of the cervix, no lesions and no masses Bimanual Exam- Vagina Uterus: normal bimanual exam, uterine size normal, bladder normal to palpation, normal palpation and non-tender Bimanual Exam- Adnexa, other: normal adnexae, no masses, normal and non-tender Pelvic Support: normal Skin General: no (more content not included)... Normal [facility] Service comment (Unsp spec) [Interp]Ordered By: Magda Franklin on 04-15-2024 Pap Smear Comment (3) . . [facility] Basic Metabolic Profile (BMP )on 04-10-2024 BUN/CRE 9.6 RATIO Low 10-20 [facility] Comment on above: Order Comment: Order Date: 04/06/24 Order Info: 666-04 - BMP Performed By: #### L 500.2500 #### [facility] [address] [place], [place], [id number] CA,Total 9.5 mg/dL Normal 8.5-10.1 [facility] Comment on above: Order Comment: Order Date: 04/06/24 Order Info: 666-04 - BMP Performed By: #### L 500.2500 #### [facility] [address] [place], [address] Chloride [Moles/Vol] 108 mmol/L High 98-107 [facility] Comment on above: Order Comment: Order Date: 04/06/24 Order Info: 666-04 - BMP Performed By: #### L 500.2500 #### [facility] [address] [place], [address] CO2 [Moles/Vol] 25.0 mmol/L Normal 21.0-32.0 [facility] Comment on above: Order Comment: Order Date: 04/06/24 Order Info: 0667-1 - BMP Performed By: #### L 500.2500 #### [facility] [address] [place], [address] Creatinine [Mass/Vol] 1.14 mg/dL High 0.55-1.02 [facility] Comment on above: Order Comment: Order Date: 04/06/24 Order Info: 666-04 - BMP Result Comment: The validity of the calculated GFR GFRAA in patients over 70 years has not been determined. Clinical correlation is essential. Performed By: #### L 500.2500 #### [facility] [address] [place], [address] EST GFR - AA 75 mL/min Normal >60 [facility] Comment on above: Order Comment: Order Date: 04/06/24 Order Info: 0667 - BMP Result Comment: Afri can Indonesian GFR Calc Performed By: #### L 500.2500 #### [facility] [address] [place], [address] GAP 6 Normal 5-15 [facility] Comment on above: Order Comment: Order Date: 04/06/24 Order Info: 0667- - BMP Performed By: #### L 500.2500 #### [facility] [address] [place], [address] GFR/1.73 sq M.predicted among non-blacks MDRD (S/P/Bld) [Vol rate/Area] 62 mL/min/{1.73_m2} Normal >60 [facility] Comment on above: Order Comment: Order Date: 04/06/24 Order Info: 0667- - BMP Result Comment: Non- GFR Calc Performed By: #### L 500.2500 #### [facility] [address] [place], [place], [address] [phone] Glucose [Mass/Vol] 93 mg/dL Normal 74-106 [facility] Comment on above: Order Comment: Order Date: 04/06/24 Order Info: 67 - BMP Performed By: #### L 500.2500 #### [facility] [address] [place], [place], [address] [phone] Potassium [Moles/Vol] 4.2 mmol/L Normal 3.5-5.1 [facility] Comment on above: Order Comment: Order Date: 04/06/24 Order Info: 666-04 - BMP Performed By: #### L 500.2500 #### [facility] [address] [place], [place], [address] [phone] Sodium [Moles/Vol] 139 mmol/L Normal 136-145 [facility] Comment on above: Order Comment: Order Date: 04/06/24 Order Info: 666-04 - BMP Performed By: #### L 500.2500 #### [facility] [address] [place], [place], [address] [phone] Urea nitrogen [Mass/Vol] 11 mg/dL Normal 7-18 [facility] Comment on above: Order Comment: Order Date: 04/06/24 Order Info: 666-04 - BMP Performed By: #### L 500.2500 #### [facility] [address] [place], [place], [address] [phone] Blood urea nitrogen (BUN)/cr eatinine ratioOrdered By: Donald Waller on 04-10-2024 Urea nitrogen/Creatinine [Mass ratio] 9.6 mg/mg Low 10-20 [facility] Carbon dioxide measurementOr dered By: Donald Waller on 04-10-2024 CO2 [Moles/Vol] 25.0 mmol/L 21.0-32.0 [facility] Chloride measurementOrdered By: Donald Waller on 04-10-2024 Chloride [Moles/Vol] 108 mmol/L High 98-107 [facility] Estimated glomerular filtrat ion rate (GFR) AmericanOrdered By: Donald Waller on 04-10-2024 Estimated GFR (MDRD) Amer 75 mL/min >60 [facility] Comment on above: GFR Calc Glomerular filtration rate ( GFR) estimationOrdered By: Donald Waller on 04-10-2024 Estimated GFR (MDRD) Non-Af Amer 62 mL/min >60 [facility] Comment on above: Non- GFR Calc Glucose measurementOrdered B y: Donald Waller on 04-10-2024 Glucose [Mass/Vol] 93 mg/dL 74-106 [facility] Potassium measurementOrdered By: Donald Waller on 04-10-2024 Potassium [Moles/Vol] 4.2 mmol/L 3.5-5.1 [facility] Serum anion gap measurementO rdered By: Donald Waller on 04-10-2024 Anion gap [Moles/Vol] 6 mmol/L 5-15 [facility] Serum or plasma calcium mika urement (mass/volume)Ordered By: Donald Waller on 04-10-2024 Calcium [Mass/Vol] 9.5 mg/dL 8.5-10.1 [facility] Serum or plasma creatinine m easurement (mass/volume)Ordered By: Donald Waller on 04-10-2024 Creatinine [Mass/Vol] 1.14 mg/dL High 0.55-1.02 [facility] Comment on above: The validity of the calculated GFR & GFRAA in patients over 70 years has not been determined. Clinical correlation is essential. Serum or plasma urea nitroge n measurement (mass/volume)Ordered By: Donald Waller on 04-10-2024 Urea nitrogen [Mass/Vol] 11 mg/dL 7-18 [facility] Sodium levelOrdered By: Donald Waller on 04-10-2024 Sodium [Moles/Vol] 139 mmol/L 136-145 [facility] Absolute neutrophil countOrd ered By: Donald Waller on 04-03-2024 Neutrophils (Bld) [#/Vol] 4.1 10*3/uL 2.0-7.7 [facility] Albumin to globulin ratioOrd ered By: Donald Waller on 04-03-2024 Albumin/Globulin [Mass ratio] 1.2 {ratio} 0.9-2.4 [facility] Basophil percentageOrdered B y: Donald Odonnellcynthia on 04-03-2024 Basophils/100 WBC (Bld) 0.5 % 0-1 [facility] Bilirubin Test strip Ql (U)O rdered By: Donald Waller on 04-03-2024 Bilirubin Ql (U) Negative Negative [facility] Bilirubin, totalOrdered By: Donald Waller on 04-03-2024 Bilirubin [Mass/Vol] 0.40 mg/dL 0.20-1.00 [facility] Comment on above: For patients on eltr ombopag therapy, use of Dimension [place] TBIL is not recommended. Blood urea nitrogen (BUN)/cr eatinine ratioOrdered By: Donald Waller on 04-03-2024 Urea nitrogen/Creatinine [Mass ratio] 14.5 mg/mg 10-20 [facility] CBC W/Diff, Automatedon 12-0 Absolute Lymph 2.63 X10 3/uL Normal 0.83-4.51 [facility] Comment on above: Order Comment: Order Date: 04/03/24 Order Info: 0184-1 - CBCD Performed By: #### L 100.0100, L500.4050, L400.0001 #### [facility] [address] [place], [address] Absolute Neut 4.1 X10 3/uL Normal 2.0-7.7 [facility] Comment on above: Order Comment: Order Date: 04/03/24 Order Info: 0184-1 - CBCD Performed By: #### L 100.0100, L500.4050, L400.0001 #### [facility] [address] [place], [address] Basophils/100 WBC (Bld) 0.5 % Normal 0-1 [facility] Comment on above: Order Comment: Order Date: 04/03/24 Order Info: 0184-1 - CBCD Performed By: #### L 100.0100, L500.4050, L400.0001 #### [facility] [address] [place], [address] Eosinophils/100 WBC (Bld) 1.6 % Normal 0-5 [facility] Comment on above: Order Comment: Order Date: 04/03/24 Order Info: 0184-1 - CBCD Performed By: #### L 100.0100, L500.4050, L400.0001 #### [facility] [address] [place], [address] Erythrocyte distribution width (RBC) [Ratio] 12.1 % Normal 11.6-14.6 [facility] Comment on above: Order Comment: Order Date: 04/03/24 Order Info: 0184- - CBCD Performed By: #### L 100.0100, L500.4050, L400.0001 #### [facility] [address] [place], [address] Hematocrit (Bld) [Volume fraction] 39.2 % Normal 37-47 [facility] Comment on above: Order Comment: Order Date: 04/03/24 Order Info: 0184- - CBCD Performed By: #### L 100.0100, L500.4050, L400.0001 #### [facility] [address] [place], [address] Hemoglobin (Bld) [Mass/Vol] 12.8 g/dL Normal 12.0-15.0 [facility] Comment on above: Order Comment: Order Date: 04/03/24 Order Info: 0184-1 - CBCD Performed By: #### L 100.0100, L500.4050, L400.0001 #### [facility] [address] [place], [address] IG% 0.400 Normal 0.0-0.9 [facility] Comment on above: Order Comment: Order Date: 04/03/24 Order Info: 0184-1 - CBCD Result Comment: IG% - Immature Granulocytes (promyelocytes, myelocytes and metamyelocytes) > 1% indicates that a LEFT SHIFT is Present. Performed By: #### L 100.0100, L500.4050, L400.0001 #### [facility] [address] [place], [address] Lymphocytes/100 WBC (Bld) 35.3 % Normal 19-41 [facility] Comment on above: Order Comment: Order Date: 04/03/24 Order Info: 0184-1 - CBCD Performed By: #### L 100.0100, L500.4050, L400.0001 #### [facility] [address] [place], [address] MCH (RBC) [Entitic mass] 29.3 pg Normal 27.0-32.0 [facility] Comment on above: Order Comment: Order Date: 04/03/24 Order Info: 0184- - CBCD Performed By: #### L 100.0100, L500.4050, L400.0001 #### [facility] [address] [place], [address] MCHC (RBC) [Mass/Vol] 32.7 g/dL Normal 32-36 [facility] Comment on above: Order Comment: Order Date: 04/03/24 Order Info: 0184-1 - CBCD Performed By: #### L 100.0100, L500.4050, L400.0001 #### [facility] [address] [place], [address] MCV (RBC) [Entitic vol] 89.7 fL Normal 81-99 [facility] Comment on above: Order Comment: Order Date: 04/03/24 Order Info: 0184-1 - CBCD Performed By: #### L 100.0100, L500.4050, L400.0001 #### [facility] [address] [place], [address] Monocytes/100 WBC (Bld) 6.7 % Normal 0-10 [place] Comment on above: Order Comment: Order Date: 04/03/24 Order Info: 0184-1 - CBCD Performed By: #### L 100.0100, L500.4050, L400.0001 #### [facility] [address] [place], [address] Neutrophils/100 WBC (Bld) 55.5 % Normal 47-70 [facility] Comment on above: Order Comment: Order Date: 04/03/24 Order Info: 0184-1 - CBCD Performed By: #### L 100.0100, L500.4050, L400.0001 #### [facility] [address] [place], [address] Nucleated RBC (Bld) [#/Vol] 0 10*3/uL Normal 0-5 [facility] Comment on above: Order Comment: Order Date: 04/03/24 Order Info: 0184-1 - CBCD Performed By: #### L 100.0100, L500.4050, L400.0001 #### [facility] [address] [place], [address] Platelet mean volume (Bld) [Entitic vol] 10.8 fL Normal 6.2-12.0 [facility] Comment on above: Order Comment: Order Date: 04/03/24 Order Info: 0184-1 - CBCD Performed By: #### L 100.0100, L500.4050, L400.0001 #### [facility] [address] [place], [address] Platelets (Bld) [#/Vol] 248 10*3/uL Normal 150-450 [facility] Comment on above: Order Comment: Order Date: 04/03/24 Order Info: 0184-1 - CBCD Performed By: #### L 100.0100, L500.4050, L400.0001 #### [facility] [address] [place], [address] RBC (Bld) [#/Vol] 4.37 10*6/uL Normal 4.2-5.4 [facility] Comment on above: Order Comment: Order Date: 04/03/24 Order Info: 0184-1 - CBCD Performed By: #### L 100.0100, L500.4050, L400.0001 #### [facility] [address] [place], [address] RDW SD 40.1 fl Normal 35.1-43.9 [facility] Comment on above: Order Comment: Order Date: 04/03/24 Order Info: 0184- - CBCD Performed By: #### L 100.0100, L500.4050, L400.0001 #### [facility] [address] [place], [address] WBC (Bld) [#/Vol] 7.5 10*3/uL Normal 4.4-11.0 [facility] Comment on above: Order Comment: Order Date: 04/03/24 Order Info: 0184- - CBCD Performed By: #### L 100.0100, L500.4050, L400.0001 #### [facility] [address] [place], [address] Carbon dioxide measurementOr dered By: Donald Waller on 04-03-2024 CO2 [Moles/Vol] 27.0 mmol/L 21.0-32.0 [facility] Chloride measurementOrdered By: Donald Waller on 04-03-2024 Chloride [Moles/Vol] 109 mmol/L High 98-107 [facility] Comprehensive Metabolic Prof ilon 04-03-2024 Albumin [Mass/Vol] 4.1 g/dL Normal 3.2-5.0 [facility] Comment on above: Order Comment: Order Date: 04/03/24 Order Info: 0786-1 - CMP Performed By: #### L 100.0100, L500.4050, L400.0001 #### [facility] [address] [place], [address] Albumin/Globulin [Mass ratio] 1.2 {ratio} Normal 0.9-2.4 [facility] Comment on above: Order Comment: Order Date: 04/03/24 Order Info: 0786-1 - CMP Performed By: #### L 100.0100, L500.4050, L400.0001 #### [facility] [address] [place], [address] ALK P 54 U/L Normal 45-117 [facility] Comment on above: Order Comment: Order Date: 04/03/24 Order Info: 0786-1 - CMP Performed By: #### L 100.0100, L500.4050, [id number] #### [facility] [address] [place], [address] ALT [Catalytic activity/Vol] 28 U/L Normal 13-56 [facility] Comment on above: Order Comment: Order Date: 04/03/24 Order Info: 0786-1 - CMP Performed By: #### L 100.0100, L500.4050, [id number] #### [facility] [address] [place], [address] AST [Catalytic activity/Vol] 20 U/L Normal 15-37 [facility] Comment on above: Order Comment: Order Date: 04/03/24 Order Info: 0786-1 - CMP Performed By: #### L 100.0100, L500.4050, [id number] #### [facility] [address] [place], [address] Bilirubin [Mass/Vol] 0.40 mg/dL Normal 0.20-1.00 [facility] Comment on above: Order Comment: Order Date: 04/03/24 Order Info: 0786-1 - CMP Result Comment: For patients on eltrombopag therapy, use of Dimension [place] TBIL is not recommended. Performed By: #### L 100.0100, L500.4050, [id number] #### [facility] [address] [place], [address] BUN/CRE 14.5 RATIO Normal 10-20 [facility] Comment on above: Order Comment: Order Date: 04/03/24 Order Info: 0786-1 - CMP Performed By: #### L 100.0100, L500.4050, [id number] #### [facility] [address] [place], [address] CA,Total 9.1 mg/dL Normal 8.5-10.1 [facility] Comment on above: Order Comment: Order Date: 04/03/24 Order Info: 0786-1 - CMP Performed By: #### L 100.0100, L500.4050, [id number] #### [facility] [address] [place], [address] Chloride [Moles/Vol] 109 mmol/L High 98-107 [facility] Comment on above: Order Comment: Order Date: 04/03/24 Order Info: 0786-1 - CMP Performed By: #### L 100.0100, L500.4050, [id number] #### [facility] [address] [place], [address] CO2 [Moles/Vol] 27.0 mmol/L Normal 21.0-32.0 [facility] Comment on above: Order Comment: Order Date: 04/03/24 Order Info: 0786-1 - CMP Performed By: #### L 100.0100, L500.4050, [id number] #### [facility] [address] [place], [address] Creatinine [Mass/Vol] 1.10 mg/dL High 0.55-1.02 [facility] Comment on above: Order Comment: Order Date: 04/03/24 Order Info: 0786-1 - CMP Result Comment: The validity of the calculated GFR GFRAA in patients over 70 years has not been determined. Clinical correlation is essential. Performed By: #### L 100.0100, L500.4050, [id number] #### [facility] [address] [place], [address] EST GFR - AA 78 mL/min Normal >60 [facility] Comment on above: Order Comment: Order Date: 04/03/24 Order Info: 0786-1 - CMP Result Comment: Afri can Indonesian GFR Calc Performed By: #### L 100.0100, L500.4050, [id number] #### [facility] [address] [place], [address] GAP 4 Low 5-15 [facility] Comment on above: Order Comment: Order Date: 04/03/24 Order Info: 0786-1 - CMP Performed By: #### L 100.0100, L500.4050, [id number] #### [facility] [address] [place], [address] GFR/1.73 sq M.predicted among non-blacks MDRD (S/P/Bld) [Vol rate/Area] 64 mL/min/{1.73_m2} Normal >60 [facility] Comment on above: Order Comment: Order Date: 04/03/24 Order Info: 0786-1 - CMP Result Comment: Non- GFR Calc Performed By: #### L 100.0100, L500.4050, [id number] #### [facility] [address] [place], [address] Globulin (S) [Mass/Vol] 3.4 g/dL Normal 2.2-4.2 [place] Comment on above: Order Comment: Order Date: 04/03/24 Order Info: 0786-1 - CMP Performed By: #### L 100.0100, L500.4050, [id number] #### [facility] [address] [place], [address] Glucose [Mass/Vol] 77 mg/dL Normal 74-106 [facility] Comment on above: Order Comment: Order Date: 04/03/24 Order Info: 0786-1 - CMP Performed By: #### L 100.0100, L500.4050, [id number] #### [facility] [address] [place], [address] Potassium [Moles/Vol] 3.8 mmol/L Normal 3.5-5.1 [facility] Comment on above: Order Comment: Order Date: 04/03/24 Order Info: 0786-1 - CMP Performed By: #### L 100.0100, L500.4050, [id number] #### [facility] [address] [place], [address] Sodium [Moles/Vol] 140 mmol/L Normal 136-145 [facility] Comment on above: Order Comment: Order Date: 04/03/24 Order Info: 0786-1 - CMP Performed By: #### L 100.0100, L500.4050, [id number] #### [facility] [address] [place], [address] T PROT 7.5 g/dL Normal 6.4-8.2 [facility] Comment on above: Order Comment: Order Date: 04/03/24 Order Info: 0786-1 - CMP Performed By: #### L 100.0100, L500.4050, [id number] #### [facility] [address] [place], [address] Urea nitrogen [Mass/Vol] 16 mg/dL Normal 7-18 [facility] Comment on above: Order Comment: Order Date: 04/03/24 Order Info: 0786-1 - CMP Performed By: #### L 100.0100, L500.4050, [id number] #### [facility] [address] [place], [address] Eosinophil percentageOrdered By: Donald Waller on 04-03-2024 Eosinophils/100 WBC (Bld) 1.6 % 0-5 [facility] Epithelial cells.squamous LM Ql (Urine sed)Ordered By: Donald Waller on 04-03-2024 Epithelial cells.squamous LM.HPF (Urine sed) [#/Area] 0 /[HPF] 5-10 [facility] Erythrocyte distribution wid th ratioOrdered By: Donald Waller on 04-03-2024 Erythrocyte distribution width (RBC) [Ratio] 12.1 % 11.6-14.6 [facility] Erythrocyte distribution wid th standard deviationOrdered By: Donald Waller on 04-03-2024 Erythrocyte distribution width (RBC) [Entitic vol] 40.1 fL 35.1-43.9 [facility] Estimated glomerular filtrat ion rate (GFR) AmericanOrdered By: Donald Waller on 04-03-2024 Estimated GFR (MDRD) Amer 78 mL/min >60 [facility] Comment on above: GFR Calc Glomerular filtration rate ( GFR) estimationOrdered By: Donald Waller on 04-03-2024 Estimated GFR (MDRD) Non-Af Amer 64 mL/min >60 [facility] Comment on above: Non- GFR Calc Glucose Ql (U)Ordered By: Chantal Waller on 04-03-2024 Urine Glucose (UA) Normal mg/dl Normal [facility] Glucose measurementOrdered B y: Donald Waller on 04-03-2024 Glucose [Mass/Vol] 77 mg/dL 74-106 [facility] Hematocrit Auto (Bld) [Volum e fraction]Ordered By: Donald Waller on 04-03-2024 Hematocrit (Bld) [Volume fraction] 39.2 % 37-47 [facility] Hemoglobin measurementOrdere d By: Donald Waller on 04-03-2024 Hemoglobin (Bld) [Mass/Vol] 12.8 g/dL 12.0-15.0 [facility] Immature granulocytes/100 WB C Auto (Bld)Ordered By: Donald Waller on 04-03-2024 Immature granulocytes/100 WBC (Bld) 0.400 % 0.0-0.9 [facility] Comment on above: IG% - Immature Granu locytes (promyelocytes, myelocytes and metamyelocytes) > 1% indicates that a LEFT SHIFT is Present. Ketones Test strip Ql (U)Ord ered By: Donald Waller on 04-03-2024 Ketones Ql (U) Negative Negative [facility] - Chemistry and C hemistry - challengeOrdered By: Donald Waller on 04-03-2024 AST [Catalytic activity/Vol] 20 U/L 15-37 [facility] Lymphocytes Auto (Unsp spec) [#/Vol]Ordered By: Donald Waller on 04-03-2024 Lymphocytes (Bld) [#/Vol] 2.63 10*3/uL 0.83-4.51 [facility] Lymphocytes/100 WBC Auto (Un sp spec)Ordered By: Donald Waller on 04-03-2024 Lymphocytes/100 WBC (Bld) 35.3 % 19-41 [facility] MCV (mean corpuscular volume ) determinationOrdered By: Donald Waller on 04-03-2024 MCV (RBC) [Entitic vol] 89.7 fL 81-99 [facility] Mean corpuscular hemoglobin (MCH) determinationOrdered By: Donald Waller on 04-03-2024 MCH (RBC) [Entitic mass] 29.3 pg 27.0-32.0 [facility] Mean corpuscular hemoglobin concentration (MCHC) determinationOrdered By: Donald Waller on 04-03-2024 MCHC (RBC) [Mass/Vol] 32.7 g/dL 32-36 [facility] Mean platelet volume determi nationOrdered By: Donald Waller on 04-03-2024 Platelet mean volume (Bld) [Entitic vol] 10.8 fL 6.2-12.0 [facility] Microscopic analysis of urin e for red blood cells (RBC)Ordered By: Donald Waller on 04-03-2024 Urine RBC 0 SEEN /hpf 0-5 [facility] Monocyte percentageOrdered B y: Donald Waller on 04-03-2024 Monocytes/100 WBC (Bld) 6.7 % 0-10 [facility] Mucus LM Ql (Urine sed)Order ed By: Donald Waller on 04-03-2024 Mucus Ql (Urine sed) RARE /hpf [facility] Neutrophil percentageOrdered By: Donald Waller on 12-06-2024 Neutrophils/100 WBC (Bld) 55.5 % 47-70 [facility] Nitrite Test strip Ql (U)Ord ered By: Donald Waller on 04-03-2024 Nitrite Ql (U) Negative Negative [facility] Nucleated red blood cell per centageOrdered By: Donald Waller on 04-03-2024 Nucleated RBC/100 WBC (Bld) [Ratio] 0 % 0-5 [facility] Platelet countOrdered By: Chantal Waller on 04-03-2024 Platelets (Bld) [#/Vol] 248 10*3/uL 150-450 [facility] Potassium measurementOrdered By: Donald Waller on 04-03-2024 Potassium [Moles/Vol] 3.8 mmol/L 3.5-5.1 [facility] Protein Test strip Ql (U)Ord ered By: Donald Waller on 04-03-2024 Protein Ql (U) Negative Negative [facility] RBC Auto (Bld) [#/Vol]Ordere d By: Donald Waller on 04-03-2024 RBC (Bld) [#/Vol] 4.37 10*6/uL 4.2-5.4 [facility] Serum anion gap measurementO rdered By: Donald Waller on 04-03-2024 Anion gap [Moles/Vol] 4 mmol/L Low 5-15 [facility] Serum globulin measurementOr dered By: Donald Waller on 04-03-2024 Globulin (S) [Mass/Vol] 3.4 g/dL 2.2-4.2 [place] Serum or plasma alanine terrazas otransferase (ALT) measurementOrdered By: Donald Waller on 04-03-2024 ALT [Catalytic activity/Vol] 28 U/L 13-56 [facility] Serum or plasma albumin mika urement (mass/volume)Ordered By: Donald Waller on 04-03-2024 Albumin [Mass/Vol] 4.1 g/dL 3.2-5.0 [facility] Serum or plasma alkaline le[place] sphatase measurementOrdered By: Donald Waller on 04-03-2024 ALP [Catalytic activity/Vol] 54 U/L 45-117 [facility] Serum or plasma calcium mika urement (mass/volume)Ordered By: Donald Waller on 04-03-2024 Calcium [Mass/Vol] 9.1 mg/dL 8.5-10.1 [facility] Serum or plasma creatinine m easurement (mass/volume)Ordered By: Donald Waller on 04-03-2024 Creatinine [Mass/Vol] 1.10 mg/dL High 0.55-1.02 [facility] Comment on above: The validity of the calculated GFR & GFRAA in patients over 70 years has not been determined. Clinical correlation is essential. Serum or plasma urea nitroge n measurement (mass/volume)Ordered By: Donald Waller on 04-03-2024 Urea nitrogen [Mass/Vol] 16 mg/dL 7-18 [facility] Sodium levelOrdered By: Donald Waller on 04-03-2024 Sodium [Moles/Vol] 140 mmol/L 136-145 [facility] Total proteinOrdered By: Carlos Waller on 04-03-2024 Protein [Mass/Vol] 7.5 g/dL 6.4-8.2 [facility] Urinalysis, Completeon 04-03 EPI,SQUAMOUS 0-5 SEEN Normal 5-10 [facility] Comment on above: Order Comment: Order Date: 04/03/24 Order Info: [id number] - UAC PATTERNMAKER TO SPECIFY Performed By: #### L 100.0100, L500.4050, [id number] #### [facility] [address] [place], [place], [address] Mucus Ql (Urine sed) RARE Normal [facility] Comment on above: Order Comment: Order Date: 04/03/24 Order Info: [id number] - UAC PATTERNMAKER TO SPECIFY Performed By: #### L 100.0100, L500.4050, [id number] #### [facility] [address] [place], [address] BILIRUBIN URINE Negative Normal Negative [facility] Comment on above: Order Comment: Order Date: 04/03/24 Order Info: [id number] - UAC PATTERNMAKER TO SPECIFY Performed By: #### L 100.0100, L500.4050, [id number] #### [facility] [address] [place], [address] Clarity (U) Clear Normal Clear [facility] Comment on above: Order Comment: Order Date: 04/03/24 Order Info: [address] [place] [address] PATTERNMAKER TO SPECIFY Performed By: #### L 100.0100, L500.4050, [id number] #### [facility] [address] [place], [address] Color (U) Straw Normal Yellow [facility] Comment on above: Order Comment: Order Date: 04/03/24 Order Info: [address] [place] [address] PATTERNMAKER TO SPECIFY Performed By: #### L 100.0100, L500.4050, [id number] #### [facility] [address] [place], [address] GLUCOSE, UR Normal Normal Normal [facility] Comment on above: Order Comment: Order Date: 04/03/24 Order Info: [address] [place] [address] PATTERNMAKER TO SPECIFY Performed By: #### L 100.0100, L500.4050, [id number] #### [facility] [address] [place], [address] KETONE UR Negative Normal Negative [facility] Comment on above: Order Comment: Order Date: 04/03/24 Order Info: [address] [place] [address] PATTERNMAKER TO SPECIFY Performed By: #### L 100.0100, L500.4050, [id number] #### [facility] [address] [place], [address] LEUK ESTERASE Negative Normal Negative [facility] Comment on above: Order Comment: Order Date: 04/03/24 Order Info: [address] [place] [address] PATTERNMAKER TO SPECIFY Performed By: #### L 100.0100, L500.4050, [id number] #### [facility] [address] [place], [address] Nitrite Ql (U) Negative Normal Negative [facility] Comment on above: Order Comment: Order Date: 04/03/24 Order Info: [address] [place] [address] PATTERNMAKER TO SPECIFY Performed By: #### L 100.0100, L500.4050, [id number] #### [facility] [address] [place], [address] OCCULT BLOOD-UR Negative Normal Negative [facility] Comment on above: Order Comment: Order Date: 04/03/24 Order Info: [address] [place] [address] PATTERNMAKER TO SPECIFY Performed By: #### L 100.0100, L500.4050, [id number] #### [facility] [address] [place], [address] pH UR 7.0 Normal 5.0 - 8.0 [facility] Comment on above: Order Comment: Order Date: 04/03/24 Order Info: [address] [place] [address] PATTERNMAKER TO SPECIFY Performed By: #### L 100.0100, L500.4050, [id number] #### [facility] [address] [place], [address] PROT DIPSTX Negative Normal Negative [facility] Comment on above: Order Comment: Order Date: 04/03/24 Order Info: [address] [place] [address] PATTERNMAKER TO SPECIFY Performed By: #### L 100.0100, L500.4050, [id number] #### [facility] [address] [place], [address] SP.GR. DIPSTX 1.010 Normal 1.002-1.030 [facility] Comment on above: Order Comment: Order Date: 04/03/24 Order Info: [address] [place] [address] PATTERNMAKER TO SPECIFY Performed By: #### L 100.0100, L500.4050, [id number] #### [facility] [address] [place], [address] UROBILI Normal Normal Normal [facility] Comment on above: Order Comment: Order Date: 04/03/24 Order Info: [id number] [facility] PATTERNMAKER TO SPECIFY Performed By: #### L 100.0100, L500.4050, [id number] #### [facility] [address] [place], [address] BACTERIA 0 SEEN Normal None Seen [facility] Comment on above: Order Comment: Order Date: 04/03/24 Order Info: [address] [place] [address] PATTERNMAKER TO SPECIFY Performed By: #### L 100.0100, L500.4050, [id number] #### [facility] [address] [place], [address] RBC 0 SEEN Normal 0-5 [facility] Comment on above: Order Comment: Order Date: 04/03/24 Order Info: [address] [place] [address] PATTERNMAKER TO SPECIFY Performed By: #### L 100.0100, L500.4050, [id number] #### [facility] [address] [place], [address] WBC 0 SEEN Normal 0-5 [facility] Comment on above: Order Comment: Order Date: 04/03/24 Order Info: [id number] [facility] PATTERNMAKER TO SPECIFY Performed By: #### L 100.0100, L500.4050, [id number] #### [facility] [address] [place], [address] Urine blood detectionOrdered By: Donald Waller on 04-03-2024 Urine Occult Blood Negative Negative [facility] Urine clarityOrdered By: Carlos Waller on 04-03-2024 Clarity (U) Clear Clear [facility] Urine color determinationOrd ered By: Donald Waller on 04-03-2024 Color (U) Straw Yellow [facility] Urine leukocyte esterase det ection by dipstickOrdered By: Donald Waller on 04-03-2024 Leukocyte esterase Test strip Ql (U) Negative Negative [facility] Urine pHOrdered By: Donald marie on 04-03-2024 pH (U) 7.0 [pH] 5.0 - 8.0 [facility] Urine sediment bacteria coun t by microscopy (number/high power field)Ordered By: Donald Waller on 04-03-2024 Bacteria LM.HPF (Urine sed) [#/Area] 0 /[HPF] None Seen [facility] Urine specific gravity measu rementOrdered By: Donald Waller on 04-03-2024 Specific gravity (U) [Rel density] 1.010 1.002-1.030 [facility] Urobilinogen Ql (U)Ordered B y: Donald Waller on 04-03-2024 Urine Urobilinogen Normal mg/dl Normal [facility] White blood cell (WBC) count Ordered By: Donald Waller on 04-03-2024 WBC (Bld) [#/Vol] 7.5 10*3/uL 4.4-11.0 [facility] White blood cell countOrdere d By: Donald Waller on 04-03-2024 Urine WBC 0 SEEN /hpf 0-5 [facility] MEASLES,MUMP,RUBELLAon 05-13 MUMPS ABS, IGG 53.6 AU/mL Normal Immune >10.9 [facility] Comment on above: Result Comment: (NOT E) Negative <9.0 Equivocal 9.0 - 10.9 Positive >10.9 A positive result generally indicates past exposure to Mumps virus or previous vaccination. PERFORMED AT [facility] Performed By: #### L MMR #### Testing performed at [facility] [address] [place] [address] [place] [address] RUBEOLA AB, IGG 49.1 AU/mL Normal Immune >16.4 [facility] Comment on above: Result Comment: (NOT E) Negative <13.5 Equivocal 13.5 - 16.4 Positive >16.4 Presence of antibodies to Rubeola is presumptive evidence of immunity except when acute infection is suspected. Performed By: #### L MMR #### Testing performed at [facility] [address] [facility] [place] [address] RUBELLA AB, IGG 2.63 index Normal Immune >0.99 [facility] Comment on above: Result Comment: (NOT E) Non-immune <0.90 Equivocal 0.90 - 0.99 Immune >0.99 Performed By: #### L MMR #### Testing performed at [address] [address] HEP B SURFACE ABon 0 HEP B SURFACE AB Negative Abnormal POSITIVE [facility] Comment on above: Result Comment: Clinical Interpretation of Immune Status Negative: patient is considered to be not immune to infection with HBV Intermediate: unable to determine if anti-HBs is present at levels consistent with immunity Positive: anti-HBs detected, patient is considered to be immune to infection with HBV Performed By: #### L MMR #### Testing performed at [address] [address] HEP C ABon 05-12-2019 HEP C AB Negative Normal NEGATIVE [facility] Comment on above: Performed By: #### L MMR #### Testing performed at [address] [address] FAX REQUESTon 05-11-2019 FAX TO [facility] Comment on above: Performed By: #### L MMR #### Testing performed at [address] [address] HSV by PCR Superficial Siteo n 11-27-2017 HSV by PCR Superficial Site Abnormal NEG [facility] Comment on above: Result Comment: Posi tiveFinal ReportHerpes Simplex virus (HSV) DNA WAS DETECTED by the polymerase chain reaction (PCR) method on this specimen. These results suggest that the patient is infected with HSV at the site tested.This test was developed and its performance characteristics determined by [facility]. It has not been cleared or approved by the U.S. Food and Drug Administration. The FDA has determined that such clearance or approval is not necessary. This test is used for clinical purposes. It should not be regarded as investigational or for research. Performed By: #### H SVTT2 ####[place] [address] HSV Type HERPES SIMPLEX VIRUS , TYPE 1 Normal [facility] Comment on above: Performed By: #### H SVTT2 ####[place] [address] HSV by PCR Superficial Siteo n 11-26-2017 Specimen Description Normal [facility] Comment on above: Result Comment: LipU PPERRight Performed By: #### H SVTT2 ####[place] [address] Virus Cultureon 11-25-2017 Virus Culture Specimen description : Lesion Lip UPPER Right Special requests: None Culture results: No Virus Isolated After 1 Day Report status: Pending Normal [facility] Comment on above: Performed By: #### V IRC ####[place] [address] XR Spine Lumbosacral 2 or 3 Viewson 11-20-2017 INR Coag RelTime (Bld) Exam Date/Time:11/19/2017 14:07 EDTReason for Exam:low back painReportSTUDY:XR Spine Lumbosacral 2 or 3 Views; 11/19/2017 2:07 pmINDICATION:low back pain.COMPARISON:None. [id number] CLINICIAN:Pa SolisFINDINGS:3 views of the lumbar spine including AP, lateral and lateral cone-down views were obtained. There is no acute fracture identified. The vertebral bodies are well aligned without evidence of subluxation. The disc spaces and posterior facet joints are well preserved throughout without significant degenerative changes.IMPRESSION:1. No evidence of acute fracture. FINAL REPORT Dictated: 11/20/2017 9:20 am Mp Ordaz MD CSigned (Electronic Signature): 11/20/2017 9:20 amSigned by: Mp Ordaz MD Technologist: [facility] XR Spine Thoracic 3 Viewson 11-20-2017 INR Coag RelTime (Bld) Exam Date/Time:11/19/2017 14:07 EDTReason for Exam:mid back painReportSTUDY:XR Spine Thoracic 3 Views; 11/19/2017 2:07 pmINDICATION:mid back pain.COMPARISON:None. [id number] CLINICIAN:Pa SolisFINDINGS:3 views of the thoracic spine including AP, lateral and lateral swimmer's projection were obtained. There is no radiographic evidence of acute fracture identified. The vertebral bodies are well aligned without evidence of subluxation. The disc spaces are well-preserved throughout.IMPRESSION :1. No acute fracture identified. FINAL REPORT Dictated: 11/20/2017 9:20 am Mp Ordaz MD CSigned (Electronic Signature): 11/20/2017 9:20 amSigned by: Mp Ordaz MD Technologist: GLP Normal [facility] C trach/N anthony Amplified Prob yany 07-02-2017 C. trachomatis amp. Abnormal NODT [facility] Comment on above: Result Comment: DETE CTEDIn patients in whom the disease is unlikely, additional testing should be considered following a positive result (CDC, MMRW January 2002, Vol.51). If clinically indicated, contact the laboratory within 1 week for repeat testing on this specimen for confirmation or consider collecting and submitting a new sample. Comment This assay is validated for testing on first catch urine. Testing of clean catch urine may result in reduced sensitivity. Normal [facility] N. gonorrhoeae amp. Not Detected Normal NODT [facility] Specimen Description Urine Normal [facility] Chlamydia GC by PCRon 2016 Chlamydia by PCR. Not Detected Normal Not Detected [facility] Comment on above: Result Comment: Xper t CT/NG Assay performance has not been evaluated in patients less than 14 years of age. Performed By: #### [id number] ####DANIEL Winters [employer] SubSection, Gonorrhoeae by PCR Not Detected Normal Not Detected [facility] Comment on above: Result Comment: Xper t CT/NG Assay performance has not been evaluated in patients less than 14 years of age. Performed By: #### [id number] ####DANIEL [employer] SubSection, Vital Signs Date Time Vital Sign Value Performing Clinician Buffy avila 09-28-2024 14:56-0400 Body height 172.[address] Donald Waller MD Work Phone: [facility] 09-28-2024 14:56-0400 Body mass index (BMI) [Ratio] 39.8 kg/m2 Dr. Donald Waller MD Work Phone: [facility] 09-28-2024 14:56-0400 Body weight 118.[address] Donald Waller MD Work Phone: 0(263)903-105492 [place] [address] 09-28-2024 14:56-0400 Diastolic blood pressure 76 mm[Hg] Dr. Donald Waller MD Work Phone: 0(575)103-083392 [place] [address] 09-28-2024 14:56-0400 Systolic blood pressure 122 mm[Hg] Dr. Donald Waller MD Work Phone: 0(278)239-747546 [place] [address] 09-28-2024 07:30-0400 Body height 172.[address] Donald Waller MD Work Phone: 5(810)920-008946 [place] [address] 09-28-2024 07:30-0400 Body mass index (BMI) [Ratio] 40 kg/m2 Dr. Donald Waller MD Work Phone: 6(942)099-255892 [place] [address] 09-28-2024 07:30-0400 Body temperature 98.8 [degF] Dr. Donald Waller MD Work Phone: 4(505)890-760592 [place] [address] 09-28-2024 07:30-0400 Body weight 119.[address] Donald Waller MD Work Phone: 4(733)511-464892 [place] [address] 09-28-2024 07:30-0400 Diastolic blood pressure 80 mm[Hg] Dr. Donald Waller MD Work Phone: 8(414)744-151692 [place] [address] 09-28-2024 07:30-0400 Heart rate 90 /min Dr. Donald Waller MD Work Phone: 7(932)983-855846 [place] [address] 09-28-2024 07:30-0400 SaO2% (BldA) [Mass fraction] 99 % Dr. Donald Waller MD Work Phone: 4(963)555-332592 [place] [address] 09-28-2024 07:30-0400 Systolic blood pressure 120 mm[Hg] Dr. Donald Waller MD Work Phone: [facility] 09-01-2024 15:02-0400 Body mass index (BMI) [Ratio] 37.4 kg/m2 Dr. Donald Waller MD Work Phone: [facility] 09-01-2024 15:02-0400 Body weight 111.[address] Donald Waller MD Work Phone: 1(554)613-963792 [place] [address] 09-01-2024 15:02-0400 Diastolic blood pressure 81 mm[Hg] Dr. Donald Waller MD Work Phone: 7(222)909-161792 [place] [address] 09-01-2024 15:02-0400 Systolic blood pressure 125 mm[Hg] Dr. Donald Waller MD Work Phone: 8(695)685-286546 [place] [address] 08-04-2024 10:40-0400 Body height 172.[address] Donald Waller MD Work Phone: 2(710)190-064746 [place] [address] 08-04-2024 10:40-0400 Body mass index (BMI) [Ratio] 35.8 kg/m2 Dr. Donald Waller MD Work Phone: 2(283)258-491146 [place] [address] 08-04-2024 10:40-0400 Body weight 106.[address] Donald Waller MD Work Phone: 7(577)765-820746 [place] [address] 08-04-2024 10:40-0400 Diastolic blood pressure 82 mm[Hg] Dr. Donald Waller MD Work Phone: 5(919)047-120792 [place] [address] 08-04-2024 10:40-0400 Systolic blood pressure 124 mm[Hg] Dr. Donald Waller MD Work Phone: 1(067)622-392042 [address] 07-07-2024 15:11-0400 Body height 172.[address] Donald Waller MD Work Phone: 7(013)169-388746 [place] [address] 07-07-2024 15:11-0400 Body mass index (BMI) [Ratio] 34.7 kg/m2 Dr. Donald Waller MD Work Phone: 9(451)494-202046 [place] [address] 07-07-2024 15:11-0400 Body weight 103.[address] Donald Waller MD Work Phone: [facility] 07-07-2024 15:11-0400 Diastolic blood pressure 84 mm[Hg] Dr. Donald Waller MD Work Phone: [facility] 07-07-2024 15:11-0400 Systolic blood pressure 131 mm[Hg] Dr. Donald Waller MD Work Phone: [facility] 06-04-2024 13:01-0500 Body mass index (BMI) [Ratio] 34.4 kg/m2 Dr. Donald Waller MD Work Phone: [facility] 06-04-2024 13:01-0500 Body weight 102.[address] Donald Waller MD Work Phone: [facility] 06-04-2024 13:01-0500 Diastolic blood pressure 82 mm[Hg] Dr. Donald Waller MD Work Phone: [facility] 06-04-2024 13:01-0500 Systolic blood pressure 128 mm[Hg] Dr. Donald Wlaler MD Work Phone: [facility] 04-15-2024 11:31-0500 Body mass index (BMI) [Ratio] 32.8 kg/m2 Dr. Donald Waller MD Work Phone: [facility] 04-15-2024 11:31-0500 Body weight 97.[address] Donald Waller MD Work Phone: [facility] 04-15-2024 11:31-0500 Diastolic blood pressure 71 mm[Hg] Dr. Donald Waller MD Work Phone: [facility] 04-15-2024 11:31-0500 Systolic blood pressure 128 mm[Hg] Dr. Donald Waller MD Work Phone: [facility] Encounters Encounter Date Encounter Type Care Provider Facility Start: 09-28-2024 End: 09-28-2024 Patient encounter procedure Jennifer AGARWAL -[facility] Work Phone: Start: 09-28-2024 End: 09-28-[address] Donald Waller MD Work Phone: [facility] Work Phone: Start: 09-28-2024 End: 09-28-2024 Patient encounter procedure Dinh Loren[place] -[facility] Work Phone: Start: 09-28-2024 End: 09-28-[address] Donald Waller MD Work Phone: [facility] Work Phone: Start: 09-01-2024 End: 09-01-[address] Susan Chavez DO -[facility] Work Phone: Start: 09-01-2024 End: 09-01-2024 ambulatory Donald Waller Facility:[facility] Start: 08-19-2024 End: 08-19-[address] Nita Mcintosh MD -Ultrasound [facility] Work Phone: Start: 08-19-2024 End: 08-19-2024 ambulatory Donald Waller Facility:[facility] Start: 08-04-2024 End: 08-04-2024 Patient encounter procedure Jennifer AGARWAL -[facility] Work Phone: Start: 08-04-2024 End: 08-04-[address] Donald Waller MD Work Phone: [facility] Work Phone: Start: 08-04-2024 End: 08-04-2024 ambulatory Donald Waller Facility:[facility] Start: 07-07-2024 End: 07-07-[address] Donald Waller MD Work Phone: [facility] Work Phone: Start: 07-07-2024 End: 07-07-[address] Nita Mcintosh MD -Lab, [facility] Start: 07-07-2024 End: 07-07-[address] Nita Mcintosh MD -[facility] Work Phone: Start: 07-07-2024 End: 07-07-2024 ambulatory Donald Waller Facility:[facility] Start: 07-07-2024 End: 07-07-2024 ambulatory Donald Waller Facility:[facility] Start: 06-04-2024 End: 06-04-2024 Patient encounter procedure Susie Solomon CNM -Laboratory, Specimen Work Phone: Start: 06-04-2024 End: 06-04-2024 Patient encounter procedure Susie Solomon CNM -[facility] Work Phone: Start: 06-04-2024 End: 06-04-2024 ambulatory Donald Waller Facility:[facility] Start: 06-04-2024 End: 06-04-2024 ambulatory Donald Waller Facility:[facility] Start: 04-15-2024 End: 04-15-[address] Donald Waller MD -Ultrasound, [facility] Work Phone: Start: 04-15-2024 End: 04-15-2024 Patient encounter procedure Magda AGARWAL -[facility] Work Phone: Start: 04-15-2024 End: 04-15-2024 Patient encounter status Magda AGARWAL [facility] Start: 04-15-2024 End: 04-15-2024 ambulatory Donald Waller Facility:[facility] Start: 04-15-2024 End: 04-15-2024 ambulatory Donald Waller Facility:[facility] Start: 04-10-2024 End: 04-10-[address] Donald Waller MD -Laboratory, Specimen Work Phone: Start: 04-10-2024 End: 04-10-2024 ambulatory Donald Waller Facility:[facility] Start: 04-03-2024 End: 04-03-[address] Donald Waller MD -Laboratory, [facility] Start: 04-03-2024 End: 04-03-2024 ambulatory Donald Waller Facility:[facility] Start: 10-03-2023 ambulatory Health Risk Assessment Facility:[facility] Start: 11-26-2017 Patient encounter ELENI VIDAL [facility] Start: 11-19-2017 End: 11-20-2017 Patient encounter [facility] Facility:[facility] Start: 11-19-2017 Patient encounter Facil [id number] Start: 11-05-2017 Ambulatory Pa A [facility] Facility :[place] Start: 07-02-2017 End: 07-02-2017 Patient encounter [facility] Start: 12-21-2016 End: 12-22-2016 Patient encounter [facility] Facility:[facility] Procedures Date Procedure Procedure Detail Performing Clinician Start: 08-19-2024 Ultrasonography in f irst trimester Dr. Donald Waller MD Work Phone: Start: 07-07-2024 Hepatitis C antibody measurement Dr. Donald Waller MD Work Phone: Comment on above: Reactive: Presumptiv e evidence of antibodies to HCV. Follow CDC recommendations for supplemental testing.Non-Reactive: Antibodies to HCV were not detected; does not exclude the possibility of exposure to HCVReactive Results are presumptive evidence of antibodies to HCV. Follow CDC recommendations for supplemental testing.Order confirmation testing: HCV Quant by PCR testing - HCVPCR #[id number] Non Reactive: < 0.8 Equivocal: >/= 0.8 to < 1.0 Reactive: >/= 1.0The CDC requires that a reactive/equivocal HCV antibody result be sent out for confirmation. HCV Quant by PCR testing. Start: 07-07-[address] Donald pichardo MD Work Phone: Start: 07-07-[address] Donald Waller MD Work Phone: Comment on above: Antibody Result: Int erpretationNon-Reactive: Non- ImmuneReactive: ImmuneThe following results were obtained with the [employer] Rubella IgG assay. Results from assays of other manufacturers cannot be used interchangeably. Start: 07-07-2024 Serologic test for syphilis Dr. Donald Waller MD Work Phone: Start: 06-04-[address] Donald Waller MD Work Phone: Start: 04-15-[address] Chantal Waller MD Work Phone: Plan of Treatment Date Care Activity Detail Author CBC W Auto Differential panel - Blood [facility] anatomy study [facility] Measurement of gluco se 2 hours after glucose challenge for glucose tolerance test [facility] Serologic test for syphilis [facility] Immunizations Immunization Date Immunization Notes Care Provider Fa cility 11-29-2016 meningococcal B vacc ine, fully recombinant Dr. Donald Waller MD Work Phone: [facility] 11-29-2015 meningococcal B vacc ine, fully recombinant Dr. Donald Waller MD Work Phone: [facility] 11-29-2015 meningococcal polysaccharide (groups A, C, Y and W-135) diphtheria toxoid conjugate vaccine (MCV4P) Dr. Donald Waller MD Work Phone: [facility] 11-02-2010 meningococcal polysaccharide (groups A, C, Y and W-135) diphtheria toxoid conjugate vaccine (MCV4P) Dr. Donald Waller MD Work Phone: [facility] 08-05-[address] Donald Waller MD Work Phone: [facility] 12-29-2003 measles, mumps and rubella virus vaccine Dr. Donald Waller MD Work Phone: [facility] 10-01-[address] Donald Waller MD Work Phone: [facility] 06-27-2000 measles, mumps and rubella virus vaccine Dr. Donald Waller MD Work Phone: [facility] Payers Date Payer Category Payer Unknown [id number] 2023 Self-pay 2017 Unknown [id number] 2016 Unknown Unknown [id number] 2.16.8 [id number] Unknown [id number] 2.16.8 [id number] Unknown [id number] 2.16.8 [id number] Unknown [id number] 2.16.8 [id number] Unknown [id number] 2.16.8 [id number] Unknown [id number] 2.16.8 [id number] Unknown [id number] 2.16.8 [id number] Unknown [id number] 2.16.8 [id number] Unknown [id number] 2.16.8 [id number] Unknown [id number] 2.16.8 [id number] Unknown [id number] 2.16.8 [id number] Unknown [id number] 2.16.8 [id number] Unknown [id number] 2.16.8 [id number] Unknown [id number] 2.16.8 [id number] Social History Date Type Detail Facility Start: 05-26-2024 [facility] Start: 07-17-2024 End: 08-06-2024 Sex Female (finding) [facility] Start: 2000 Sex Assigned At Female W [facility] Evaluation note 06-04-2024 Note Date & Type Note Facility 06-04-2024 Evaluation note Diagnosis Onset Date Resolution Anxiety acute June 04, 2024 12:53pm Current every day nicotine vaping acute June 04 12:53pm FH: hemophilia acute June 042024 12:53pm Obesity affecting acute June 04 12:53pm acute June 04, 2024 12:53pm Recurrent UTI acute May 12:53pm Supervision of normal first acute June 04 12:53pm Anxiety acute July 07 2:50pm Current every day nicotine vaping acute July 07, 2024 2:50pm FH: hemophilia acute June 2:50pm Obesity affecting acute July 07, 2024 2:50pm acute July 07 2:50pm Recurrent UTI acute July 07, 2024 2:50pm Supervision of normal first acute July 07, 2024 2:50pm Anxiety acute August 04 10:37am Congenital tbmqcs-nbydmbq-rnezh reflux acute August 04, 2024 10:37am Current every day nicotine vaping acute August 04, 2024 10:37am Elevated serum creatinine acute August 04, 2024 10:37am FH: hemophilia acute August 04, 2024 10:37am Obesity affecting acute August 04, 2024 10:37am acute August 04 10:37am Recurrent UTI acute August 04, 2024 10:37am Supervision of normal first acute August 04, 2024 10:37am Anxiety acute September 01, 2024 2:50pm Congenital bwxqbc-yclkdup-ugabw reflux acute September 01, 2024 2: 50pm Current every day nicotine vaping acute September 01, 2024 2: 50pm Elevated serum creatinine acute September 01, 2024 2: 50pm FH: hemophilia acute September 01, 2:50pm Obesity affecting acute September 01, 2024 2: 50pm acute September 01, 2024 2:50pm Supervision of normal first acute September 01, 2024 2: 50pm [facility] Work Phone: Evaluation note 06-04-2024 Note Date & Type Note Facility 06-04-2024 Evaluation note Diagnosis Onset Date Resolution Anxiety acute June 04, 2024 12:53pm Current every day nicotine vaping acute June 04 12:53pm FH: hemophilia acute June 042024 12:53pm Obesity affecting acute June 04 12:53pm acute June 04, 2024 12:53pm Recurrent UTI acute May 12:53pm Supervision of normal first acute June 04 12:53pm Anxiety acute July 07 2:50pm Current every day nicotine vaping acute July 07, 2024 2:50pm FH: hemophilia acute June 2:50pm Obesity affecting acute July 07, 2024 2:50pm acute July 07 2:50pm Recurrent UTI acute July 07, 2024 2:50pm Supervision of normal first acute July 07, 2024 2:50pm Anxiety acute August 04 10:37am Congenital fgibco-jmmvkju-mnqxy reflux acute August 04, 2024 10:37am Current every day nicotine vaping acute August 04, 2024 10:37am Elevated serum creatinine acute August 04, 2024 10:37am FH: hemophilia acute August 04, 2024 10:37am Obesity affecting acute August 04, 2024 10:37am acute August 04 10:37am Recurrent UTI acute August 04, 2024 10:37am Supervision of normal first acute August 04, 2024 10:37am Anxiety acute September 01, 2024 2:50pm Congenital vlcjzu-zpdmeqf-reufc reflux acute September 01, 2024 2: 50pm Current every day nicotine vaping acute September 01, 2024 2: 50pm Elevated serum creatinine acute September 01, 2024 2: 50pm FH: hemophilia acute September 01, 2 2:50pm Obesity affecting acute September 01, 2024 2: 50pm acute September 01, 2024 2:50pm Supervision of normal first acute September 01, 2024 2: 50pm Anxiety acute September 28, 2024 2:50pm Congenital cvoevz-oggsuzo-gejdg reflux acute September 28, 2024 2 :50pm Current every day nicotine vaping acute September 28, 2024 2 :50pm Elevated serum creatinine acute September 28, 2024 2 :50pm FH: hemophilia acute September 28, 2024 2:50pm Kidney disease acute September 28, 2024 2:50pm Obesity affecting acute Felisha 2nd, 2025 2 :50pm acute September 28, 2024 2:50pm Recurrent UTI acute September 28 2:50pm Supervision of normal first acute September 28, 2024 2 :50pm [facility] Work Phone: Clinical Note 04-15-2024 Note Date & Type Note Facility 04-15-2024 Note [facility] Pap Smear Specimen Adequacy April 16, 2024 12:59am Comment . Satisfactory for evaluation. No endocervical component is identified. Comment on above: Satisfactory for johny luation. No endocervical component is identified. Clinical Note 04-15-2024 Note Date & Type Note Facility 04-15-2024 Note [facility] Pap Smear Specimen Adequacy April 16, 2024 12:59am Comment . Satisfactory for evaluation. No endocervical component is identified. Comment on above: Satisfactory for johny luation. No endocervical component is identified. Evaluation note 04-15-2024 Note Date & Type Note Facility 04-15-2024 Evaluation note Diagnosis Onset Date Resolution Recurrent UTI acute April 152023 11:20am Encounter for routine gynecological examination noneactive April 15, 2 024 11:20am Anxiety acute June 04, 2024 12:53pm Current every day nicotine vaping acute June 04 12:53pm FH: hemophilia acute June 042024 12:53pm Obesity affecting acute June 04 12:53pm acute June 04, 2024 12:53pm Recurrent UTI acute May 12:53pm Supervision of normal first acute June 04 12:53pm Anxiety acute July 07 2:50pm Current every day nicotine vaping acute July 07, 2024 2:50pm FH: hemophilia acute June 2:50pm Obesity affecting acute July 07, 2024 2:50pm acute July 07 2:50pm Recurrent UTI acute July 07, 2024 2:50pm Supervision of normal first acute July 07, 2024 2:50pm [facility] Work Phone: Evaluation note 04-15-2024 Note Date & Type Note Facility 04-15-2024 Evaluation note Diagnosis Onset Date Resolution Recurrent UTI acute April 152023 11:20am Encounter for routine gynecological examination noneactive April 15, 2 024 11:20am Anxiety acute June 04, 2024 12:53pm Current every day nicotine vaping acute June 04 12:53pm FH: hemophilia acute June 042024 12:53pm Obesity affecting acute June 04 12:53pm acute June 04, 2024 12:53pm Recurrent UTI acute May 12:53pm Supervision of normal first acute June 04 12:53pm Anxiety acute July 07 2:50pm Current every day nicotine vaping acute July 07, 2024 2:50pm FH: hemophilia acute June 2:50pm Obesity affecting acute July 07, 2024 2:50pm acute July 07 2:50pm Recurrent UTI acute July 07, 2024 2:50pm Supervision of normal first acute July 07, 2024 2:50pm Anxiety acute August 04 10:37am Congenital dfykkq-zsqlpfv-cmnmg reflux acute August 04, 2024 10:37am Current every day nicotine vaping acute August 04, 2024 10:37am Elevated serum creatinine acute August 04, 2024 10:37am FH: hemophilia acute August 04, 2024 10:37am Obesity affecting acute August 04, 2024 10:37am acute August 04 10:37am Recurrent UTI acute August 04, 2024 10:37am Supervision of normal first acute August 04, 2024 10:37am [facility] Work Phone: Reason for referral (narrative) Note Date & Type Note Facility Reason for referral (narrative) No reason for referral information available [facility] Work Phone: Summary Purpose Family History No Family History Records Found Relationship Condition Age at Onset Recorded Date/T [place] father Diabetes mellitus Unknown aunt Disorder of thyroid Unknown mother Disorder of thyroid Unknown grandmother Malignant neoplasm of breast Unknown Advance Directives No Advanced Directives Records FoundNo Advanced Directives Records FoundNo Advanced Directives Records FoundNo Advanced Directives Records FoundNo Advanced Directives Records FoundNo Advanced Directives Records Found Chief Complaint and Reason for Visit Chief Complaint Admit Date 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, 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 11:20am UTI April 15, 2024 1:04pm 9WK NOB LMP 04/01/24 TERRENCE 01/06/25 June 04, 2024 12:53pm 13wk OB July 07, 2024 2:5 0pm Reason for Visit Admit Date Recurrent UTI April 15, 2024 11:20am Encounter for routine gynecological exam ination April 15, 2024 11:20am Anxiety June 04, 2024 1 2:53pm Current every day nicotine vaping 2024 12:53pm FH: hemophilia June 04, 2024 1 2:53pm Obesity affecting May 12:53pm June 04, 2024 1 2:53pm Recurrent UTI June 04, 2024 1 2:53pm Supervision of normal first Fe bru2024 12:53pm Anxiety July 07, 2024 2:5 0pm Current every day nicotine vaping July 07, 2024 2:50pm FH: hemophilia July 07, 2024 2:5 0pm Obesity affecting July 07, 2024 2:50pm July 07, 2024 2:5 0pm Recurrent UTI July 07, 2024 2:5 0pm Supervision of normal first [facility] 2024 2:50pm Chief Complaint Admit Date 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, 2024 11:20am UTI April 15, 2024 1:04pm 9WK NOB LMP 04/01/24 TERRENCE 01/06/25 June 04, 2024 12:53pm 13wk OB July 07, 2024 2:5 0pm 18 wk ob August 04, 2024 10:3 7am Reason for Visit Admit Date Recurrent UTI April 15, 2024 11:20am Encounter for routine gynecological exam ination April 15, 2024 11:20am Anxiety June 04, 2024 1 2:53pm Current every day nicotine vaping 2024 12:53pm FH: hemophilia June 04, 2024 1 2:53pm Obesity affecting May 12:53pm June 04, 2024 1 2:53pm Recurrent UTI June 04, 2024 1 2:53pm Supervision of normal first Fe bruary 2024 12:53pm Anxiety July 07, 2024 2:5 0pm Current every day nicotine vaping July 07, 2024 2:50pm FH: hemophilia July 07, 2024 2:5 0pm Obesity affecting July 07, 2024 2:50pm July 07, 2024 2:5 0pm Recurrent UTI July 07, 2024 2:5 0pm Supervision of normal first [facility] 2024 2:50pm Anxiety August 04, 2024 10:3 7am Congenital gyogoa-vkzjbcs-llknb reflux A pril 2024 10:37am Current every day nicotine vaping August 04, 2024 10:37am Elevated serum creatinine August 04 10:37am FH: hemophilia August 04, 2024 10:3 7am Obesity affecting August 04, 025 10:37am August 04, 2024 10:3 7am Recurrent UTI August 04, 2024 10:3 7am Supervision of normal first Ap [facility] 2024 10:37am Chief Complaint Admit Date 9WK NOB LMP 04/01/24 TERRENCE 01/06/25 June 04, 2024 12:53pm 13wk OB July 07, 2024 2:5 0pm 18 wk ob August 04, 2024 10:3 7am ANATOMY SCAN August 19, 2024 3:1 5pm 22 wk ob September 01, 2024 2:50pm congestion, cough, sore throat September 28, 2024 7:26am Reason for Visit Admit Date Anxiety June 04, 2024 1 2:53pm Current every day nicotine vaping 2024 12:53pm FH: hemophilia June 04, 2024 1 2:53pm Obesity affecting May 12:53pm June 04, 2024 1 2:53pm Recurrent UTI June 04, 2024 1 2:53pm Supervision of normal first Fe bruary 2024 12:53pm Anxiety July 07, 2024 2:5 0pm Current every day nicotine vaping July 07, 2024 2:50pm FH: hemophilia July 07, 2024 2:5 0pm Obesity affecting July 07, 2024 2:50pm July 07, 2024 2:5 0pm Recurrent UTI July 07, 2024 2:5 0pm Supervision of normal first [facility] 2024 2:50pm Anxiety August 04, 2024 10:3 7am Congenital menhkr-sugcmrz-huwsc reflux A pril 2024 10:37am Current every day nicotine vaping August 04, 2024 10:37am Elevated serum creatinine August 04 10:37am FH: hemophilia August 04, 2024 10:3 7am Obesity affecting August 04, 2 025 10:37am August 04, 2024 10:3 7am Recurrent UTI August 04, 2024 10:3 7am Supervision of normal first Ap ril 2024 10:37am Anxiety September 01, 2024 2:50pm Congenital lbtomn-hrubcdn-cwfuv reflux M ay 2024 2:50pm Current every day nicotine vaping August 2:50pm Elevated serum creatinine September 01, 2024 2:50pm FH: hemophilia September 01, 2024 2:50pm Obesity affecting September 01 2:50pm September 01, 2024 2:50pm Supervision of normal first Ma y 2024 2:50pm Chief Complaint Admit Date 9WK NOB LMP 04/01/24 TERRENCE 01/06/25 June 04, 2024 12:53pm 13wk OB July 07, 2024 2:5 0pm 18 wk ob August 04, 2024 10:3 7am ANATOMY SCAN August 19, 2024 3:1 5pm 22 wk ob September 01, 2024 2:50pm congestion, cough, sore throat September 28, 2024 7:26am 26wk ob September 28, 2024 2:50p m Reason for Visit Admit Date Anxiety June 04, 2024 1 2:53pm Current every day nicotine vaping 2024 12:53pm FH: hemophilia June 04, 2024 1 2:53pm Obesity affecting May 12:53pm June 04, 2024 1 2:53pm Recurrent UTI June 04, 2024 1 2:53pm Supervision of normal first Fe bruary 2024 12:53pm Anxiety July 07, 2024 2:5 0pm Current every day nicotine vaping July 07, 2024 2:50pm FH: hemophilia July 07, 2024 2:5 0pm Obesity affecting July 07, 2024 2:50pm July 07, 2024 2:5 0pm Recurrent UTI July 07, 2024 2:5 0pm Supervision of normal first Ma h 2024 2:50pm Anxiety August 04, 2024 10:3 7am Congenital vyptzi-ouqrtev-dfadv reflux A pril 2024 10:37am Current every day nicotine vaping August 04, 2024 10:37am Elevated serum creatinine August 04 10:37am FH: hemophilia August 04, 2024 10:3 7am Obesity affecting August 04, 2 025 10:37am August 04, 2024 10:3 7am Recurrent UTI August 04, 2024 10:3 7am Supervision of normal first Ap ril 2024 10:37am Anxiety September 01, 2024 2:50pm Congenital acysus-xijwnyq-ylozc reflux M ay 2024 2:50pm Current every day nicotine vaping August 2:50pm Elevated serum creatinine September 01, 2024 2:50pm FH: hemophilia September 01, 2024 2:50pm Obesity affecting September 01 2:50pm September 01, 2024 2:50pm Supervision of normal first Ma y 2024 2:50pm Anxiety September 28, 2024 2:50p m Congenital izejki-yhgnwys-wvveq reflux J une 2024 2:50pm Current every day nicotine vaping September 282024 2:50pm Elevated serum creatinine September 28, 2024 2:50pm FH: hemophilia September 28, 2024 2:50p m Kidney disease September 28, 2024 2:50p m Obesity affecting September 28 2:50pm September 28, 2024 2:50p m Recurrent UTI September 28, 2024 2:50p m Supervision of normal first Ju ne 2024 2:50pm Additional Source Comments INFORMATION SOURCE (unrecogn ized section and content) DATE CREATED AUTHOR 11/06/2017 [facility] DATE CREATED AUTHOR AUTHOR'S ORGANIZ ATION 11/20/2017 [facility] DATE CREATED AUTHOR AUTHOR'S ORGANIZ ATION 11/27/2017 [facility] DATE CREATED AUTHOR AUTHOR'S ORGANIZ ATION 12/20/2017 [facility] DATE CREATED AUTHOR AUTHOR'S ORGANIZ ATION 05/13/2019 [facility] DATE CREATED AUTHOR AUTHOR'S ORGANIZ ATION 09/29/2024 [facility] Care Teams (unrecognized sec tion and content) Team Status: Active Member Role Status Dates Dr. Donald Waller MD Primary Care Provider Active Team Status: Inactive Member Role Status Dates Dr. Donald Waller MD Primary Care Provider Active Start: April 03, 2024 End: April 03, 2024 Dr. Donald Waller MD Attending Provider Active Start: April 03, 2024 End: April 03, 2024 Dr. Donald Waller MD Referring Provider Active Start: April 03, 2024 End: April 03, 2024 Team Status: Inactive Member Role Status Dates Dr. Donald Waller MD Primary Care Provider Active Start: April 10, 2024 End: April 10, 2024 Dr. Donald Waller MD Attending Provider Active Start: April 10, 2024 End: April 10, 2024 Dr. Donald Waller MD Referring Provider Active Start: April 10, 2024 End: April 10, 2024 Team Status: Inactive Member Role Status Dates Dr. Donald Waller MD Primary Care Provider Active Start: April 15, 2024 End: April 15, 2024 Dr. Donald Waller MD Referring Provider Active Start: April 15, 2024 End: April 15, 2024 ANY Childress Attending Provider Active Start: April 15, 2024 End: April 15, 2024 Team Status: Inactive Member Role Status Dates Dr. Donald Waller MD Primary Care Provider Active Start: April 15, 2024 End: April 15, 2024 Dr. Donald Waller MD Attending Provider Active Start: April 15, 2024 End: April 15, 2024 Dr. Donald Waller MD Referring Provider Active Start: April 15, 2024 End: April 15, 2024 Team Status: Inactive Member Role Status Dates Dr. Donald Waller MD Primary Care Provider Active Start: June 04, 2024 End: June 04, 2024 Dr. Donald Waller MD Referring Provider Active Start: June 04, 2024 End: June 04, 2024 Susie Solomon CNM Attending Provider Active S tart: June 04, 2024 End: June 04, 2024 Team Status: Inactive Member Role Status Dates Dr. Donald Waller MD Primary Care Provider Active Start: June 04, 2024 End: June 04, 2024 Susie Solomon CNM Attending Provider Active S tart: June 04, 2024 End: June 04, 2024 Susie Solomon CNM Referring Provider Active S tart: June 04, 2024 End: June 04, 2024 Team Status: Inactive Member Role Status Dates Dr. Donald Waller MD Primary Care Provider Active Start: July 07, 2024 End: July 07, 2024 Dr. Donald Waller MD Referring Provider Active Start: July 07, 2024 End: July 07, 2024 Dr. Nita Mcintosh MD Attending Provider Active Start: July 07, 2024 End: July 07, 2024 Team Status: Inactive Member Role Status Dates Dr. Donald Waller MD Primary Care Provider Active Start: July 07, 2024 End: July 07, 2024 Dr. Nita Mcintosh MD Attending Provider Active Start: July 07, 2024 End: July 07, 2024 Dr. Nita Mcintosh MD Referring Provider Active Start: July 07, 2024 End: July 07, 2024 Team Status: Inactive Member Role Status Dates Dr. Donald Waller MD Primary Care Provider Active Start: August 04, 2024 End: August 04, 2024 Dr. Donald Waller MD Referring Provider Active Start: August 04, 2024 End: August 04, 2024 Jennifer Willard BATHHOUSE ATTENDANT, BATHHOUSE ATTENDANT-C Attending Provider Active Start: August 04, 2024 End: August 04, 2024 Team Status: Inactive Member Role Status Dates Dr. Donald Waller MD Primary Care Provider Active Start: August 04, 2024 End: August 04, 2024 Jennifer Willard BATHHOUSE ATTENDANT, BATHHOUSE ATTENDANT-C Attending Provider Active Start: August 04, 2024 End: August 04, 2024 Jennifer Willard BATHHOUSE ATTENDANT, BATHHOUSE ATTENDANT-C Referring Provider Active Start: August 04, 2024 End: August 04, 2024 Team Status: Inactive Member Role Status Dates Dr. Donald Waller MD Primary Care Provider Active Start: August 19, 2024 End: August 19, 2024 Dr. Nita Mcintosh MD Attending Provider Active Start: August 19, 2024 End: August 19, 2024 Dr. Nita Mcintosh MD Referring Provider Active Start: August 19, 2024 End: August 19, 2024 Team Status: Inactive Member Role Status Dates Dr. Donald Waller MD Primary Care Provider Active Start: September 01, 2024 End: September 01, 2024 Dr. Donald Waller MD Referring Provider Active Start: September 01, 2024 End: September 01, 2024 Dr. Susan Chavez DO Attending Provider Activ e Start: September 01, 2024 End: September 01, 2024 Team Status: Inactive Member Role Status Dates Dr. Donald Waller MD Primary Care Provider Active Start: September 28, 2024 End: September 28, 2024 Dr. Donald Waller MD Referring Provider Active Start: September 28, 2024 End: September 28, 2024 Dinh WILKINS, PA Attending Provider Active Start: September 28, 2024 End: September 28, 2024 Team Status: Inactive Member Role Status Dates Dr. Donald Waller MD Primary Care Provider Active Start: September 28, 2024 End: September 28, 2024 Dr. Donald Waller MD Referring Provider Active Start: September 28, 2024 End: September 28, 2024 Jennifer Willard NP, BATHHOUSE ATTENDANT-C Attending Provider Active Start: September 28, 2024 End: September 28, 2024 Goals (unrecognized section and content) Goals may be documented in a n alternate sectionGoals may be documented in an alternate sectionGoals may be documented in an alternate sectionGoals may be documented in an alternate section FOR RECORDS PERTAINING TO PATIENTS WHO ARE OR HAVE BEEN ENROLLED IN A CHEMICAL DEPENDENCY/SUBSTANCEABUSE PROGRAM, SOME INFORMATION MAY BE OMITTED. This clinical summary was aggregated from multiple sources. Caution should be exercised in using it in the provision of clinical care. This summary normalizes information from multiple sources, and as a consequence, information in this document may materially change the coding, format and clinical context of patient data. In addition, data may be omitted in some cases. CLINICAL DECISIONS SHOULD BE BASED ON THE PRIMARY CLINICAL RECORDS. [employer] provides no warranty or guarantee of the accuracy or completeness of information in this document.
[2024-10-10 21:14] LABS: Glucose Challenge Gest 1H 50g 110 mg/dL (70-140)
== END | disposition home or self-care (01) ==
LOC: LABSPEC 20:54
PROVIDERS: Obstetrics & Gynecology; PCP Family Medicine; Visit Provider Family Medicine
DX: Z34.02 Encounter for supervision of normal first pregnancy, second trimester (principal); Z13.1 Encounter for screening for diabetes mellitus
CPT/HCPCS: 82950

== ENCOUNTER → 2024-10-27 | Outpatient (CLI) | payer OTHER, SELFPAY ==
[2024-10-27 17:01] LABS: Hematocrit 36.7 % (37-47); Hemoglobin 12.2 g/dL (12.0-15.0); Mean Corp Hgb Conc 33.2 g/dL (32-36); Mean Corpuscular Volume 90.2 fL (81-99); Mean Platelet Vol. 11.3 fl (6.2-12.0); POSITIVE COUNT YES; POSITIVE MORPHOLOGY YES; Platelet Count 204 K/mm3 (150-450); RBC Distribution Width CV 13.0 % (11.6-14.6); RBC Distribution Width SD 42.5 fl (35.1-43.9); Red Blood Count 4.07 M/mm3 (4.2-5.4); White Blood Count 18.7 K/mm3 (4.4-11.0)
[2024-10-27 17:11] LABS: Differential Indicated MANUAL DIFF
[2024-10-27 17:24] LABS: Creatinine, Urine (random) 42.10 mg/dL (28.00-217.00); Protein, Urine (Random) < 6.0 mg/dL (0.0-12.0); Protein:Creat Ratio UNABLE TO CALCULATE mg/g CRE (0-200)
[2024-10-27 17:37] LABS: HIV Nonreactive (Nonreactive); Syphilis Antibodies Nonreactive (Nonreactive)
[2024-10-27 17:53] LABS: AST(SGOT) 18 U/L (<=31); Alanine Aminotransfer ALT/SGPT 19 U/L (<=34); Albumin, Serum 3.5 g/dL (3.5-5.0); Alkaline Phosphatase 81 U/L (35-104); Anion Gap 14 (5-15); BUN 11 mg/dL (4-19); BUN/Creat Ratio 16.7 RATIO (10-20); Calcium,Total 9.3 mg/dL (7.6-11.0); Carbon Dioxide 19.6 mmol/L (21.0-32.0); Chloride 104 mmol/L (98-108); Globulin 3.1 g/dL (2.2-4.2); Glucose 89 mg/dL (70-99); Potassium 3.7 mmol/L (3.3-5.1)
[2024-10-27 20:46] LABS: Neutrophil-Band 12 % (0-5); Neutrophil-Segmented 70 % (47-70); Total Cells Counted 100 (MANUAL DIFF)
--- OUTSIDE RECORDS SUMMARY | 2024-10-27 22:37 | XMS RPT_ITS | CCD ---
Author Organization [facility] Care Team Providers Care Yard Motor Operator Name Role Phone Bojtos, Pa A Unavailable Unavailable Bojtos, Pa A Unavailable Unavailable Bojtos, Pa Unavailable Unavailable Krichbaum, Idalia L Unavailable Unavailable Bojtos, Pa Unavailable Unavailable Bojtos, Pa Unavailable Unavailable Bojtos, Pa Unavailable Unavailable Krichbaum, Idalia L Unavailable Unavailable BOJTOS, PA Unavailable Unavailable BOJTOS, PA Unavailable Unavailable RUSTY, LYNNE L Unavailable Unavailable WALKER, ELENI Owen Unavailable Unavailable RUSTY, LYNNE L Unavailable Unavailable Sridhar PITTMAN, Dr. Donald Govea Primary Care Provider Dr. Donald Waller MD Attending Provider Dr. Donald Waller MD Referring Provider Magda Elena Attending Provider Susie Solomon CNM Attending Provider Susie Solomon CNM Referring Provider [phone] Nita Mcintosh MD Attending Provider Dr. Nita Mcintosh MD Referring Provider Dr. Donald Waller MD Primary Care Provider [phone] Dr. Donald Waller MD Attending Provider Dr. Donald Waller MD Referring Provider Jennifer Ashley Attending Provider Sudheer FAN-Jennifer Martínez Referring Provider Dr. Donald Waller MD Primary Care Provider Dr. Donald Waller MD Referring Provider [phone] Manolo Coburn DO, Dr. Davis Attending Provider Dinh Livingston Attending Provider Sridhar PITTMAN, Dr. Donald Govea Primary Care Provider [phone] Sridhar PITTMAN, Dr. Donald Govea Referring Provider Sridhar PITTMAN, Dr. Donald Govea Attending Provider Donald Waller Attending Unavailable Schcynthia, Donald E Primary Care Unavailable Schinner, Donald E Referring Unavailable Schinner, Donald E Primary Care Unavailable Susie Solomon Referring Unavailable Susie Solomon Attending Unavailable Susan Chavez Attending Unavailronda e Schinandry, Donald E Primary Care Unavailable SchDonald marie E Referring Unavailable Scherrolner, Donald E Referring Unavailable Susan Chavez Attending Unavailronda govea Schinandry, Donald E Primary Care Unavailable Jennifer Willard Attending Unavailable Schcynthia, Donald E Primary Care Unavailable ScherrolnerDonald E Referring Unavailable Schinner, Donald E Primary Care Unavailable Dinh Livingston Attending Unavailable SchinnerDonald E Referring Unavailable ScherrolnerDonald E Primary Care Unavailable SchDonald marie E Referring Unavailable Magda Franklin Attending Unavailable Schinner, Donald E Primary Care Unavailable Schinner, Donald E Referring Unavailable Susie Solomon Attending Unavailable Schinandry, Donald E Primary Care Unavailable Schinandry, Donald E Referring Unavailable Nita Mcintosh Attending Unavailable SchDonald marie E Primary Care Unavailable SchDonald marie E Referring Unavailable Jennifer Willard Attending Unavailable Schinandry, Donald E Primary Care Unavailable Nita Mcintosh Attending Unavailable Nita Mcintosh Referring Unavailable SchinDonald wilde E Attending Unavailable SchDonald marie E Primary Care Unavailable SchDonald marie E Referring Unavailable SchDonald marie E Primary Care Unavailable Nita Mcintosh Referring Unavailable Nita Mcintosh Attending Unavailable Jennifer Willard Referring Unavailable Jennifer Willard Attending Unavailable Schinandry, Donald E Primary Care Unavailable ScherrolnerDonald E Attending Unavailable Schinandry, Donald E Primary Care Unavailable SchDonald marie E Attending Unavailable SchDonald marie E Primary Care Unavailable SchDonald marie E Referring Unavailable Medications Current Medications Medication Drug Class(es) Dates Sig (Normalized) Sig (Original) amoxicillin 875 mg oral tablet (4 sources) Penicillin-class Antibacterial Start: 09-28-2024 take 1 tablet by mouth twice daily Amoxicillin 875 mg tablet Active 875 mg PO TWICE A DAY 20 0 September 28, 2024 12:00am bacillus coagulans [id number] unt chewable tablet (6 sources) Start: 05-26-2024 Bacillus Coagulans (Probiotic (B. Coagulans)) 250 million cell tablet,chewable Active 2 {tbl} PO ONCE May 26, 2024 1:00am calcium ascorbate 500 mg oral tablet (6 sources) Start: 05-26-2024 take 1 tablet by mouth once daily Ascorbate Calcium (Vitamin C) 500 mg tablet Active 500 mg PO daily May 26, 2024 1:00am 24 hr ferrous sulfate 142 mg extended release oral tablet (6 sources) Start: 05-26-2024 take 1 tablet by mouth once daily Ferrous Sulfate (Slow Fe) 137 mg (45 mg iron) tablet extended release Active 137 mg PO daily May 26, 2024 1:00am ondansetron 4 mg disintegrating oral tablet (5 sources) Serotonin-3 Receptor Antagonist Start: 08-04-2024 take 1 tablet by mouth every four hours as needed for nausea and vomiting Ondansetron 4 mg tablet,disintegra ting Active 4 mg PO Q4H as needed for nausea and vomiting 60 2 August 04, 2024 12:00am Pnv No.655-Jz-Qc9-Dha-Ep a-Fish 400 mcg-35 mg- 25 mg-5 mg tablet,chewable (6 sources) Start: 05-26-2024 Pnv No.072-Rz-Fl2-Dha -Epa-Fish 400 mcg-35 mg- 25 mg-5 mg tablet,chewable Active {tbl} PO May 26, 2024 1:00am Problems Active Problems Problem Classification Problem Date Documented Date Episodic/Chronic Anxiety disorders (20 sources) Anxiety; Translations: [Anxiety disorder, unspecified] Onset: 5 05-26-2024 Chronic Comment on above: not medicated not medicated; stabl e 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 Follows with Dr Worley. Labs Q3mo:CMP and urine P/C ratio with her reflux-runs just above normal. Follows with Dr Worley. Labs Q3mo:CMP and urine P/C ratio: 7/1: Residual codes; unclassified (20 sources) Nicotine-filled electronic cigarette user; Translations: [Tobacco use] 05-26-2024 Episodic Comment on above: Has decreased % of n icotine, considering quitting, smoking education provided Residual codes; unclassified (20 sources) FH: Hemophilia; Translations: [Family history of [...] complicating ] Onset: 5 Urinary tract infections (20 sources) Recurrent urinary tract infection; Translations: [Urinary tract infection, site not specified] Onset: 5 04-15-2024 Episodic Past or Other Problems Problem Classification Problem Date Documented Da te Episodic/Chronic Residual codes; unclassified (1 source) 13 weeks gestation of ; Translations: [13 weeks gestation of ] Onset: 07-07-2024 Episodic Residual codes; unclassified (1 source) 9 weeks gestation of ; Translations: [9 weeks gestation of ] Onset: 06-04-2024 Episodic Results Test Name Value Interpretation Reference Range Facility Glucose Challenge Gest 1H 50 anthony 10-10-2024 GLU GEST 50g 1H 110 mg/dL Normal 70-140 [facility] Comment on above: Performed By: #### L 100.0100, L3890.6102, L501.9985, L900.0098, BTS, L3890.6006, L3890.6301, L509.8002, L509.4006 #### [facility] [place], [address] Glucose measurement at 2 shakila rs post-dose gestational glucose tolerance testOrdered By: Susan Coburn on 10-10-2024 Glucose [Mass/Vol] 110 mg/dL 70-140 [facility] - Chemistry and C hemistry - challengeOrdered By: Jennifer Willard on 09-28-2024 Glucose Ql (U) Negative [facility] - UrinalysisOrder ed By: Jennifer Willard on 09-28-2024 Protein Ql (U) Negative [facility] Mail Sorting Supervisor Office Visit Reporton 09-28-2024 Mail Sorting Supervisor Office Visit Report [facility] [address], [address] [place] [address] OFFICE VISIT Date of Service: 09/28/24 MR#: [id number] Acct: [id number] Name: LUCIANO KENDALL Rep #: [id number] : 2000 Provider: ANY dykes Age/Sex: 24/F Location[place] [facility] Status: Signed Intake Vital Signs 09/01/24 15:04 09/28/24 07:30 09/28/24 14:56 Height 5 ft 8 in 5 ft 8 in 5 ft 8 in Weight: 262 lb BMI 39.8 BP 122/76 H Intake Visit Reasons: 26wk ob Chief Complaint: 26 Week OB Leather Grainer Required: No Is patient in pain?: No [...] : No PFSH PFSH Medical History Congenital anwmcb-dnnwcgy-paoyw reflux Gallstones UTI (urinary tract infection) Asthma Surgical History Hx of cholecystectomy Hx of tonsillectomy Family History Father Diabetes Type 1 Aunt Thyroid disorder Maternal Mother Thyroid disorder enlarged Grandmother Breast cancer Paternal Social History adopted: No household members: significant other 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al status: employed 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 acce (more content not included)... Normal [facility] Urgent Care Visit Reporton 0 09-28-2024 Urgent Care Visit Report [facility] [address] , [address] [place] [address] OFFICE VISIT Date of Service: 09/28/24 MR#: [id number] Acct: [id number] Name: LUCIANO KENDALL Rep #: [id number] : 2000 Provider: CLAUDETTE Farmer Age/Sex: 24/F Location[place] [facility] Status: Signed Intake Vital Signs 09/01/24 15:04 [...] mg PO BID #20 tabs 09/28/24 Rx Nurse's Note: Patient has congestion,cough,ST,t eeth pain and sinus pressure. Patient lost her voice on Sat night. 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 Normal [facility] - Chemistry and C hemistry - challengeOrdered By: Susan Coburn on 09-01-2024 Glucose Ql (U) Negative [facility] - UrinalysisOrder ed By: Susan Coburn on 09-01-2024 Protein Ql (U) Negative [facility] Mail Sorting Supervisor Office Visit Reporton 09-01-2024 Mail Sorting Supervisor Office Visit Report [facility], [address] [place] [address] OFFICE VISIT Date of Service: 09/01/24 MR#: [id number] Acct: [id number] Name: LUCIANO KENDALL Rep #: [id number] : 2000 Provider: Dr. Susan Lau DO Age/Sex: 24/F Location[place] [facility] [place]: Signed Intake Vital Signs 07/07/24 15:11 08/04/24 10:40 09/01/24 15:02 09/01/24 15:04 Height 5 ft 8 in 5 ft 8 in 5 ft 8 in 5 ft 8 in Weight: 246 lb 2 oz BMI 37.4 BP 125/81 H Intake Visit Reasons: 22 wk ob Leather Grainer Required: No Is patient in pain?: No [...] : No PFSH PFSH Medical History Congenital sqoish-ejvwzmx-btaqi reflux Gallstones UTI (urinary tract infection) Asthma Surgical History Hx of cholecystectomy Hx of tonsillectomy Family History Father Diabetes Type 1 Aunt Thyroid disorder Maternal Mother Thyroid disorder enlarged Grandmother Breast cancer Paternal Social History adopted: No household members: significant other 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al status: employed 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[employer] Lab 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al exposures/hazards: No pets and [...] 1-2 times per week duration: 60-90 minutes/day sid/yarsani: None seatbelt use: always do you feel [...] oz (+2 (more content not included)... Normal [facility] OB Anatomy w/ Transvaginalon 08-19-2024 OB Anatomy w/ Transvaginal [facility] [address] [place], [place] [address] OB Anatomy w/ Transvaginal MR#: [id number] Acct: [id number] Name: LUCIANO KENDALL Rep #: [id number] : 2000 F 24 From: Kermit griffin MD PCP: Dr. Donald Waller MD Status: [facility] Study: OB Anatomy w/ Transvaginal Date of Exam: 08/19 Exam# [id number] Ordering Dr: Niat Mcintosh PROCEDURE: OB ANATOMY W/ TRANSVAGINAL 08/19/2024 [...] 19 weeks and 4 days. Reading Location: [place] [address] CC: Dr. Donald Waller MD; Dr. Nita Mcintosh MD Student Assistance Counselor: Signed Normal [facility] Absolute lymphocyte countOrd ered By: Jennifer Willard on 08-04-2024 Lymphocytes Auto (Unsp spec) [#/Vol] 2.39 10*3/uL 0.83-4.51 [facility] Absolute neutrophil countOrd ered By: Jennifer Willard on 08-04-2024 Neutrophils (Bld) [#/Vol] 9.9 10*3/uL High 2.0-7.7 [facility] Anion gap in Serum or Plasma Ordered By: Jennifer Willard on 08-04-2024 Anion gap [Moles/Vol] 10 mmol/L 5-15 [facility] Automated lymphocyte count a s percentage of total leukocytesOrdered By: Jennifer Willard on 08-04-2024 Lymphocytes/100 WBC Auto (Unsp spec) 17.6 % Low 19-41 [facility] BUN/creatinine ratioOrdered By: Jennifer Willard on 08-04-2024 Urea nitrogen/Creatinine [Mass ratio] 12.9 mg/mg 10-20 [facility] Basophil percentageOrdered B y: Jnenifer Willard on 08-04-2024 Basophils/100 WBC (Bld) 0.5 % 0-1 [facility] Bilirubin, totalOrdered By: Jennifer Willard on 08-04-2024 Bilirubin [Mass/Vol] 0.33 mg/dL 0.00-1.30 [facility] CBC W/Diff, Automatedon 04-0 8-2024 Absolute Lymph 2.39 X10 3/uL Normal 0.83-4.51 [facility] Comment on above: Order Comment: ADD O N Performed By: #### L 100.0100, L3890.6102, L501.9985, L900.0098, BTS, L3890.6006, L3890.6301, L509.8002, L509.4006 #### [facility] [address] [place], [address] Absolute Neut 9.9 X10 3/uL High 2.0-7.7 [facility] Comment on above: Order Comment: ADD O N Performed By: #### L 100.0100, L3890.6102, L501.9985, L900.0098, BTS, L3890.6006, L3890.6301, L509.8002, L509.4006 #### [facility] [address] [place], [address] Basophils/100 WBC (Bld) 0.5 % Normal 0-1 [facility] Comment on above: Order Comment: ADD O N Performed By: #### L 100.0100, L3890.6102, L501.9985, L900.0098, BTS, L3890.6006, L3890.6301, L509.8002, L509.4006 #### [facility] [address] [place], [address] Eosinophils/100 WBC (Bld) 0.7 % Normal 0-5 [facility] Comment on above: Order Comment: ADD O N Performed By: #### L 100.0100, L3890.6102, L501.9985, L900.0098, BTS, L3890.6006, L3890.6301, L509.8002, L509.4006 #### [facility] [address] [place], [address] Erythrocyte distribution width (RBC) [Ratio] 13.4 % Normal 11.6-14.6 [facility] Comment on above: Order Comment: ADD O N Performed By: #### L 100.0100, L3890.6102, L501.9985, L900.0098, BTS, L3890.6006, L3890.6301, L509.8002, L509.4006 #### [facility] [address] [place], [address] Hematocrit (Bld) [Volume fraction] 39.8 % Normal 37-47 [facility] Comment on above: Order Comment: ADD O N Performed By: #### L 100.0100, L3890.6102, L501.9985, L900.0098, BTS, L3890.6006, L3890.6301, L509.8002, L509.4006 #### [facility] [address] [place], [address] Hemoglobin (Bld) [Mass/Vol] 13.2 g/dL Normal 12.0-15.0 [facility] Comment on above: Order Comment: ADD O N Performed By: #### L 100.0100, L3890.6102, L501.9985, L900.0098, BTS, L3890.6006, L3890.6301, L509.8002, L509.4006 #### [facility] [address] [place], [place], [address] IG% 2.300 High 0.0-0.9 [facility] Comment on above: Order Comment: ADD O N Result Comment: IG% - Immature Granulocytes (promyelocytes, myelocytes and metamyelocytes) > 1% indicates that a LEFT SHIFT is Present. Performed By: #### L 100.0100, L3890.6102, L501.9985, L900.0098, BTS, L3890.6006, L3890.6301, L509.8002, L509.4006 #### [facility] [address] [place], [address] Lymphocytes/100 WBC (Bld) 17.6 % Low 19-41 [facility] Comment on above: Order Comment: ADD O N Performed By: #### L 100.0100, L3890.6102, L501.9985, L900.0098, BTS, L3890.6006, L3890.6301, L509.8002, L509.4006 #### [facility] [address] [place], [address] MCH (RBC) [Entitic mass] 29.9 pg Normal 27.0-32.0 [facility] Comment on above: Order Comment: ADD O N Performed By: #### L 100.0100, L3890.6102, L501.9985, L900.0098, BTS, L3890.6006, L3890.6301, L509.8002, L509.4006 #### [facility] [address] [place], [address] MCHC (RBC) [Mass/Vol] 33.2 g/dL Normal 32-36 [facility] Comment on above: Order Comment: ADD O N Performed By: #### L 100.0100, L3890.6102, L501.9985, L900.0098, BTS, L3890.6006, L3890.6301, L509.8002, L509.4006 #### [facility] [address] [place], [address] MCV (RBC) [Entitic vol] 90.0 fL Normal 81-99 [facility] Comment on above: Order Comment: ADD O N Performed By: #### L 100.0100, L3890.6102, L501.9985, L900.0098, BTS, L3890.6006, L3890.6301, L509.8002, L509.4006 #### [facility] [address] [place], [address] Monocytes/100 WBC (Bld) 5.8 % Normal 0-10 [facility] Comment on above: Order Comment: ADD O N Performed By: #### L 100.0100, L3890.6102, L501.9985, L900.0098, BTS, L3890.6006, L3890.6301, L509.8002, L509.4006 #### [facility] [address] [place], [address] Neutrophils/100 WBC (Bld) 73.1 % High 47-70 [facility] Comment on above: Order Comment: ADD O N Performed By: #### L 100.0100, L3890.6102, L501.9985, L900.0098, BTS, L3890.6006, L3890.6301, L509.8002, L509.4006 #### [facility] [address] [place], [address] Nucleated RBC (Bld) [#/Vol] 0 10*3/uL Normal 0-5 [facility] Comment on above: Order Comment: ADD O N Performed By: #### L 100.0100, L3890.6102, L501.9985, L900.0098, BTS, L3890.6006, L3890.6301, L509.8002, L509.4006 #### [facility] [address] [place], [address] Platelet mean volume (Bld) [Entitic vol] 11.6 fL Normal 6.2-12.0 [facility] Comment on above: Order Comment: ADD O N Performed By: #### L 100.0100, L3890.6102, L501.9985, L900.0098, BTS, L3890.6006, L3890.6301, L509.8002, L509.4006 #### [facility] [address] [place], [address] Platelets (Bld) [#/Vol] 213 10*3/uL Normal 150-450 [facility] Comment on above: Order Comment: ADD O N Performed By: #### L 100.0100, L3890.6102, L501.9985, L900.0098, BTS, L3890.6006, L3890.6301, L509.8002, L509.4006 #### [facility] [address] [place], [address] RBC (Bld) [#/Vol] 4.42 10*6/uL Normal 4.2-5.4 [facility] Comment on above: Order Comment: ADD O N Performed By: #### L 100.0100, L3890.6102, L501.9985, L900.0098, BTS, L3890.6006, L3890.6301, L509.8002, L509.4006 #### [facility] [address] [place], [address] RDW SD 43.9 fl Normal 35.1-43.9 [facility] Comment on above: Order Comment: ADD O N Performed By: #### L 100.0100, L3890.6102, L501.9985, L900.0098, BTS, L3890.6006, L3890.6301, L509.8002, L509.4006 #### [facility] [address] [place], [address] WBC (Bld) [#/Vol] 13.6 10*3/uL High 4.4-11.0 [facility] Comment on above: Order Comment: ADD O N Performed By: #### L 100.0100, L3890.6102, L501.9985, L900.0098, BTS, L3890.6006, L3890.6301, L509.8002, L509.4006 #### [facility] [address] [place], [address] Carbon dioxide, total [Moles /volume] in Central venous bloodOrdered By: Jennifer Willard on 08-04-2024 CO2 [Moles/Vol] 21.9 mmol/L 21.0-32.0 [facility] Chloride assayOrdered By: David Willard on 08-04-2024 Chloride [Moles/Vol] 104 mmol/L 98-108 [facility] Comprehensive Metabolic Prof ilon 08-04-2024 Albumin [Mass/Vol] 3.8 g/dL Normal 3.5-5.0 [facility] Comment on above: Performed By: #### L 100.0100, L3890.6102, L501.9985, L900.0098, BTS, L3890.6006, L3890.6301, L509.8002, L509.4006 #### [facility] [address] [place], [address] Albumin/Globulin [Mass ratio] 1.2 {ratio} Normal 0.9-2.4 [facility] Comment on above: Performed By: #### L 100.0100, L3890.6102, L501.9985, L900.0098, BTS, L3890.6006, L3890.6301, L509.8002, L509.4006 #### [facility] [address] [place], [address] ALK PHOS 52 U/L Normal 35-104 [facility] Comment on above: Performed By: #### L 100.0100, L3890.6102, L501.9985, L900.0098, BTS, L3890.6006, L3890.6301, L509.8002, L509.4006 #### [facility] [address] [place], [address] ALT [Catalytic activity/Vol] 38 U/L High <=34 [facility] Comment on above: Performed By: #### L 100.0100, L3890.6102, L501.9985, L900.0098, BTS, L3890.6006, L3890.6301, L509.8002, L509.4006 #### [facility] [address] [place], [place], [id number] (339) AST [Catalytic activity/Vol] 22 U/L Normal <=31 [facility] Comment on above: Performed By: #### L 100.0100, L3890.6102, L501.9985, L900.0098, BTS, L3890.6006, L3890.6301, L509.8002, L509.4006 #### [facility] [address] [place], [place], [id number] (168) Bilirubin [Mass/Vol] 0.33 mg/dL Normal 0.00-1.30 [facility] Comment on above: Performed By: #### L 100.0100, L3890.6102, L501.9985, L900.0098, BTS, L3890.6006, L3890.6301, L509.8002, L509.4006 #### [facility] [address] [place], [place], [id number] (807) BUN/CRE 12.9 RATIO Normal 10-20 [facility] Comment on above: Performed By: #### L 100.0100, L3890.6102, L501.9985, L900.0098, BTS, L3890.6006, L3890.6301, L509.8002, L509.4006 #### [facility] [address] [place], [address] Calcium [Mass/Vol] 9.3 mg/dL Normal 7.6-11.0 [facility] Comment on above: Performed By: #### L 100.0100, L3890.6102, L501.9985, L900.0098, BTS, L3890.6006, L3890.6301, L509.8002, L509.4006 #### [facility] [address] [place], [address] Chloride [Moles/Vol] 104 mmol/L Normal 98-108 [facility] Comment on above: Performed By: #### L 100.0100, L3890.6102, L501.9985, L900.0098, BTS, L3890.6006, L3890.6301, L509.8002, L509.4006 #### [facility] [address] [place], [address] CO2 [Moles/Vol] 21.9 mmol/L Normal 21.0-32.0 [facility] Comment on above: Performed By: #### L 100.0100, L3890.6102, L501.9985, L900.0098, BTS, L3890.6006, L3890.6301, L509.8002, L509.4006 #### [facility] [address] [place], [address] Creatinine [Mass/Vol] 0.79 mg/dL Normal 0.70-1.20 [facility] Comment on above: Performed By: #### L 100.0100, L3890.6102, L501.9985, L900.0098, BTS, L3890.6006, L3890.6301, L509.8002, L509.4006 #### [facility] [address] [place], [address] GAP 10 Normal 5-15 [facility] [facility] Comment on above: Performed By: #### L 100.0100, L3890.6102, L501.9985, L900.0098, BTS, L3890.6006, L3890.6301, L509.8002, L509.4006 #### [facility] [address] [place], [address] GFR/1.73 sq M.predicted among non-blacks MDRD (S/P/Bld) [Vol rate/Area] 106 mL/min/{1.73_m2} Normal >60 [facility] Comment on above: Result Comment: mL/m in/1.73m2 CKD-EPI Creatinine Equation (2020) Performed By: #### L 100.0100, L3890.6102, L501.9985, L900.0098, BTS, L3890.6006, L3890.6301, L509.8002, L509.4006 #### [facility] [address] [place], [address] Globulin (S) [Mass/Vol] 3.1 g/dL Normal 2.2-4.2 [facility] Comment on above: Performed By: #### L 100.0100, L3890.6102, L501.9985, L900.0098, BTS, L3890.6006, L3890.6301, L509.8002, L509.4006 #### [facility] [address] [place], [address] Glucose [Mass/Vol] 91 mg/dL Normal 70-99 [facility] Comment on above: Performed By: #### L 100.0100, L3890.6102, L501.9985, L900.0098, BTS, L3890.6006, L3890.6301, L509.8002, L509.4006 #### [facility] [address] [place], [address] Potassium [Moles/Vol] 4.1 mmol/L Normal 3.3-5.1 [facility] Comment on above: Performed By: #### L 100.0100, L3890.6102, L501.9985, L900.0098, BTS, L3890.6006, L3890.6301, L509.8002, L509.4006 #### [facility] [address] [place], [address] Sodium [Moles/Vol] 136 mmol/L Normal 133-145 [facility] Comment on above: Performed By: #### L 100.0100, L3890.6102, L501.9985, L900.0098, BTS, L3890.6006, L3890.6301, L509.8002, L509.4006 #### [facility] [address] [place], [address] T PROT 6.9 g/dL Normal 5.9-8.4 [facility] Comment on above: Performed By: #### L 100.0100, L3890.6102, L501.9985, L900.0098, BTS, L3890.6006, L3890.6301, L509.8002, L509.4006 #### [facility] [address] [place], [address] Urea nitrogen [Mass/Vol] 10 mg/dL Normal 4-19 [facility] Comment on above: Performed By: #### L 100.0100, L3890.6102, L501.9985, L900.0098, BTS, L3890.6006, L3890.6301, L509.8002, L509.4006 #### [facility] [address] [place], [address] Creatinine Unsp time (U) [Ma ss/Vol]Ordered By: Jennifer Willard on 08-04-2024 Creatinine (U) [Mass/Vol] 169.00 mg/dL 28.00-217.00 [facility] Eosinophil percentageOrdered By: Jennifer Willard on 08-04-2024 Eosinophils/100 WBC (Bld) 0.7 % 0-5 [facility] Erythrocyte distribution wid th (RBC) [Ratio]Ordered By: Jennifer Willard on 08-04-2024 Erythrocyte distribution width (RBC) [Entitic vol] 43.9 fL 35.1-43.9 [facility] Erythrocyte distribution wid th ratioOrdered By: Jennifer Willard on 08-04-2024 Erythrocyte distribution width (RBC) [Ratio] 13.4 % 11.6-14.6 [facility] Erythrocyte distribution wid th standard deviationOrdered By: Jennifer Willard on 08-04-2024 Erythrocyte distribution width (RBC) [Ratio] 43.9 fl 35.1-43.9 [facility] GFR/1.73 sq M.predicted keisha g non-blacks MDRD (S/P/Bld) [Vol rate/Area]Ordered By: Jennifer Willard on 08-04-2024 Estimated GFR (MDRD) Non-Af Amer 106 >60 [facility] Comment on above: mL/min/1.73m2 CKD-EP I Creatinine Equation (2020) Glomerular filtration rate ( GFR) estimation/1.73 sq m using serum, plasma, or whole bOrdered By: Jennifer Willard on 08-04-2024 GFR/1.73 sq M.predicted among non-blacks MDRD (S/P/Bld) [Vol rate/Area] 106 mL/min/{1.73_m2} >60 [facility] Comment on above: mL/min/1.73m2 CKD-EP I Creatinine Equation (2020) Hematocrit Auto (Bld) [Volum e fraction]Ordered By: Jennifer Willard on 08-04-2024 Hematocrit (Bld) [Volume fraction] 39.8 % 37-47 [facility] Hemoglobin measurementOrdere d By: Jennifer Willard on 08-04-2024 Hemoglobin (Bld) [Mass/Vol] 13.2 g/dL 12.0-15.0 [facility] Immature granulocytes/100 WB C Auto (Bld)Ordered By: Jennifer Willard on 08-04-2024 Immature granulocytes/100 WBC (Bld) 2.300 % High 0.0-0.9 [facility] Comment on above: IG% - Immature Granu locytes (promyelocytes, myelocytes and metamyelocytes) > 1% indicates that a LEFT SHIFT is Present. Laboratory - Chemistry and C hemistry - challengeOrdered By: Jennifer Willard on 08-04-2024 AST [Catalytic activity/Vol] 22 U/L <32 [facility] Lymphocytes Auto (Unsp spec) [#/Vol]Ordered By: Jennifer Willard on 08-04-2024 Lymphocytes (Bld) [#/Vol] 2.39 10*3/uL 0.83-4.51 [facility] Lymphocytes/100 WBC Auto (Un sp spec)Ordered By: Jennifer Willard on 08-04-2024 Lymphocytes/100 WBC (Bld) 17.6 % Low 19-41 [facility] MCV (mean corpuscular volume ) determinationOrdered By: Jennifer Willard on 08-04-2024 MCV (RBC) [Entitic vol] 90.0 fL 81-99 [facility] Mean corpuscular hemoglobin (MCH) determinationOrdered By: Jenniferfidel Willard on 08-04-2024 MCH (RBC) [Entitic mass] 29.9 pg 27.0-32.0 [facility] Mean corpuscular hemoglobin concentration (MCHC) determinationOrdered By: Jenniferfidel Willard on 08-04-2024 MCHC (RBC) [Mass/Vol] 33.2 g/dL 32-36 [facility] Mean platelet volume determi nationOrdered By: Jennifer Willard on 08-04-2024 Platelet mean volume (Bld) [Entitic vol] 11.6 fL 6.2-12.0 [facility] Monocyte percentageOrdered B y: Jennifer Willard on 08-04-2024 Monocytes/100 WBC (Bld) 5.8 % 0-10 [facility] Neutrophil percentageOrdered By: Jenniferfidel Willard on 08-04-2024 Neutrophils/100 WBC (Bld) 73.1 % High 47-70 [facility] Nucleated red blood cell per centageOrdered By: Jenniferfidel Willard on 08-04-2024 Nucleated RBC/100 WBC (Bld) [Ratio] 0 % 0-5 [facility] Mail Sorting Supervisor Office Visit Reporton 08-04-2024 Mail Sorting Supervisor Office Visit Report [facility] [place] [address] [place] [address], [address] [place] [address] OFFICE VISIT Date of Service: 08/04/24 MR#: [id number] Acct: [id number] Name: LUCIANO KENDALL Rep #: [id number] : 2000 Provider: ANY dykes Age/Sex: 24/F Location[place] [facility] [place] Status: Signed Intake Vital Signs 07/07/24 15:11 08/04/24 10:40 Height 5 ft 8 in 5 ft 8 in Weight: 235 lb 6 oz BMI 35.8 BP 124/82 H Intake Visit Reasons: 18 wk ob Chief Complaint: 18 Week OB Leather Grainer Required: No Is patient in pain?: No [...] (Updated 08/04/24 @ 11:10 by Jennifer Willard NP, ANY) Congenital kckwkk-gdnovny-itwvy reflux Gallstones UTI (urinary tract infection) Asthma Surgical History Hx of cholecystectomy Hx of tonsillectomy Family History Father Diabetes Type 1 Aunt Thyroid disorder Maternal Mother Thyroid disorder enlarged Grandmother Breast cancer Paternal Social History adopted: No household members: significant other 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al status: employed 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[employer] [facility] 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al exposures/hazards: No pets and [...] 1-2 times per week duration: 60-90 minutes/day sid/yarsani: None seatbelt use: always do you feel [...] 131/84 Negativ (more content not included)... Normal [facility] Platelet countOrdered By: David Willard on 08-04-2024 Platelets (Bld) [#/Vol] 213 10*3/uL 150-450 [facility] Potassium (Unsp spec) [Mass/ Vol]Ordered By: Jennifer Willard on 08-04-2024 Potassium [Moles/Vol] 4.1 mmol/L 3.3-5.1 [facility] Potassium measurement (mass/ volume)Ordered By: Jennifer Willard on 08-04-2024 Potassium (Unsp spec) [Mass/Vol] 4.1 mmol/L 3.3-5.1 [facility] Protein+Creatinine Ratio,Uri neon 08-04-2024 PROT:CRE RATIO 68 mg/g CRE Normal 0-200 [facility] Comment on above: Performed By: #### L 100.0100, L3890.6102, L501.9985, L900.0098, BTS, L3890.6006, L3890.6301, L509.8002, L509.4006 #### [facility] [address] [place], [address] Protein (U) [Mass/Vol] 11.5 mg/dL Normal 0.0-12.0 [facility] Comment on above: Performed By: #### L 100.0100, L3890.6102, L501.9985, L900.0098, BTS, L3890.6006, L3890.6301, L509.8002, L509.4006 #### [facility] [address] [place], [address] UR CREAT 169.00 mg/dL Normal 28.00-217.00 [facility] Comment on above: Performed By: #### L 100.0100, L3890.6102, L501.9985, L900.0098, BTS, L3890.6006, L3890.6301, L509.8002, L509.4006 #### [facility] [address] [place], [address] Protein/Creatinine (U) [Mass ratio]Ordered By: Jennifer Willard on 08-04-2024 Urine Protein/Creatinine Ratio 68 mg/g CRE 0-200 [facility] RBC Auto (Bld) [#/Vol]Ordere d By: Jennifer Willard on 08-04-2024 RBC (Bld) [#/Vol] 4.42 10*6/uL 4.2-5.4 [facility] Random urine creatinine mika urement (mass/volume)Ordered By: Jennifer Willard on 08-04-2024 Creatinine Unsp time (U) [Mass/Vol] 169.00 mg/dL 28.00-217.00 [facility] Serum creatinine measurement (mass/volume)Ordered By: Jennifer Willard on 08-04-2024 Creatinine [Mass/Vol] 0.79 mg/dL 0.70-1.20 [facility] Serum globulin measurementOr dered By: Jennifer Willard on 08-04-2024 Globulin (S) [Mass/Vol] 3.1 g/dL 2.2-4.2 [facility] Serum glucose measurement (m ass/volume)Ordered By: Jennifer Willard on 08-04-2024 Glucose [Mass/Vol] 91 mg/dL 70-99 [facility] Serum or plasma alanine terrazas otransferase (ALT) measurementOrdered By: Jennifer Willard on 08-04-2024 ALT [Catalytic activity/Vol] 38 U/L High <35 [facility] Serum or plasma albumin mika urement (mass/volume)Ordered By: Jennifer Willard on 08-04-2024 Albumin [Mass/Vol] 3.8 g/dL 3.5-5.0 [facility] Serum or plasma albumin/glob ulin mass ratioOrdered By: Jennifer Willard on 08-04-2024 Albumin/Globulin [Mass ratio] 1.2 {ratio} 0.9-2.4 [facility] Serum or plasma alkaline lebron sphatase measurementOrdered By: Jennifer Willard on 08-04-2024 ALP [Catalytic activity/Vol] 52 U/L 35-104 [facility] Serum or plasma calcium mika urement (mass/volume)Ordered By: Jennifer Willard on 08-04-2024 Calcium [Mass/Vol] 9.3 mg/dL 7.6-11.0 [facility] Serum or plasma urea nitroge n measurement (mass/volume)Ordered By: Jennifer Willard on 08-04-2024 Urea nitrogen [Mass/Vol] 10 mg/dL 4-19 [facility] Sodium levelOrdered By: Constantine Willard on 08-04-2024 Sodium [Moles/Vol] 136 mmol/L 133-145 [facility] Total proteinOrdered By: Merlin Willard on 08-04-2024 Protein [Mass/Vol] 6.9 g/dL 5.9-8.4 [facility] Urine protein measurement (m ass/volume)Ordered By: Jennifer Sudheer on 08-04-2024 Protein (U) [Mass/Vol] 11.5 mg/dL 0.0-12.0 [facility] Urine protein/creatinine mas s ratioOrdered By: Jennifer Sudheer on 08-04-2024 Protein/Creatinine (U) [Mass ratio] 68 mg/g CRE 0-200 [facility] White blood cell (WBC) count Ordered By: Jennifer Willard on 08-04-2024 WBC (Bld) [#/Vol] 13.6 10*3/uL High 4.4-11.0 [facility] Absolute lymphocyte countOrd ered By: Susie Solomon on 07-07-2024 Lymphocytes Auto (Unsp spec) [#/Vol] 2.97 10*3/uL 0.83-4.51 [facility] Absolute neutrophil countOrd ered By: Susie Solomon on 07-07-2024 Neutrophils (Bld) [#/Vol] 8.9 10*3/uL High 2.0-7.7 [facility] Automated lymphocyte count a s percentage of total leukocytesOrdered By: Susie Solomon on 07-07-2024 Lymphocytes/100 WBC Auto (Unsp spec) 22.8 % 19-41 [facility] Basophil percentageOrdered B y: Susie Solomon on 07-07-2024 Basophils/100 WBC (Bld) 0.3 % 0-1 [facility] CBC W/Diff, Automatedon 06-27 Absolute Lymph 2.97 X10 3/uL Normal 0.83-4.51 [facility] Comment on above: Performed By: #### L 100.0100, L3890.6102, L501.9985, L900.0098, BTS, L3890.6006, L3890.6301, L509.8002, L509.4006 #### [facility] [address] [place], [address] Absolute Neut 8.9 X10 3/uL High 2.0-7.7 [facility] Comment on above: Performed By: #### L 100.0100, L3890.6102, L501.9985, L900.0098, BTS, L3890.6006, L3890.6301, L509.8002, L509.4006 #### [facility] [address] [place], [address] Basophils/100 WBC (Bld) 0.3 % Normal 0-1 [facility] Comment on above: Performed By: #### L 100.0100, L3890.6102, L501.9985, L900.0098, BTS, L3890.6006, L3890.6301, L509.8002, L509.4006 #### [facility] [address] [place], [address] Eosinophils/100 WBC (Bld) 1.0 % Normal 0-5 [facility] Comment on above: Performed By: #### L 100.0100, L3890.6102, L501.9985, L900.0098, BTS, L3890.6006, L3890.6301, L509.8002, L509.4006 #### [facility] [address] [place], [address] Erythrocyte distribution width (RBC) [Ratio] 13.0 % Normal 11.6-14.6 [facility] Comment on above: Performed By: #### L 100.0100, L3890.6102, L501.9985, L900.0098, BTS, L3890.6006, L3890.6301, L509.8002, L509.4006 #### [facility] [address] [place], [address] Hematocrit (Bld) [Volume fraction] 37.1 % Normal 37-47 [facility] Comment on above: Performed By: #### L 100.0100, L3890.6102, L501.9985, L900.0098, BTS, L3890.6006, L3890.6301, L509.8002, L509.4006 #### [facility] [address] [place], [address] Hemoglobin (Bld) [Mass/Vol] 12.6 g/dL Normal 12.0-15.0 [facility] Comment on above: Performed By: #### L 100.0100, L3890.6102, L501.9985, L900.0098, BTS, L3890.6006, L3890.6301, L509.8002, L509.4006 #### [facility] [address] [place], [address] IG% 1.400 High 0.0-0.9 [facility] Comment on above: Result Comment: IG% - Immature Granulocytes (promyelocytes, myelocytes and metamyelocytes) > 1% indicates that a LEFT SHIFT is Present. Performed By: #### L 100.0100, L3890.6102, L501.9985, L900.0098, BTS, L3890.6006, L3890.6301, L509.8002, L509.4006 #### [facility] [address] [place], [address] Lymphocytes/100 WBC (Bld) 22.8 % Normal 19-41 [facility] Comment on above: Performed By: #### L 100.0100, L3890.6102, L501.9985, L900.0098, BTS, L3890.6006, L3890.6301, L509.8002, L509.4006 #### [facility] [address] [place], [address] MCH (RBC) [Entitic mass] 29.8 pg Normal 27.0-32.0 [facility] Comment on above: Performed By: #### L 100.0100, L3890.6102, L501.9985, L900.0098, BTS, L3890.6006, L3890.6301, L509.8002, L509.4006 #### [facility] [address] [place], [address] MCHC (RBC) [Mass/Vol] 34.0 g/dL Normal 32-36 [facility] Comment on above: Performed By: #### L 100.0100, L3890.6102, L501.9985, L900.0098, BTS, L3890.6006, L3890.6301, L509.8002, L509.4006 #### [facility] [address] [place], [address] MCV (RBC) [Entitic vol] 87.7 fL Normal 81-99 [facility] Comment on above: Performed By: #### L 100.0100, L3890.6102, L501.9985, L900.0098, BTS, L3890.6006, L3890.6301, L509.8002, L509.4006 #### [facility] [address] [place], [address] Monocytes/100 WBC (Bld) 6.1 % Normal 0-10 [facility] Comment on above: Performed By: #### L 100.0100, L3890.6102, L501.9985, L900.0098, BTS, L3890.6006, L3890.6301, L509.8002, L509.4006 #### [facility] [address] [place], [address] Neutrophils/100 WBC (Bld) 68.4 % Normal 47-70 [facility] Comment on above: Performed By: #### L 100.0100, L3890.6102, L501.9985, L900.0098, BTS, L3890.6006, L3890.6301, L509.8002, L509.4006 #### [facility] [address] [place], [address] Nucleated RBC (Bld) [#/Vol] 0 10*3/uL Normal 0-5 [facility] Comment on above: Performed By: #### L 100.0100, L3890.6102, L501.9985, L900.0098, BTS, L3890.6006, L3890.6301, L509.8002, L509.4006 #### [facility] [address] [place], [address] Platelet mean volume (Bld) [Entitic vol] 11.3 fL Normal 6.2-12.0 [facility] Comment on above: Performed By: #### L 100.0100, L3890.6102, L501.9985, L900.0098, BTS, L3890.6006, L3890.6301, L509.8002, L509.4006 #### [facility] [address] [place], [address] Platelets (Bld) [#/Vol] 225 10*3/uL Normal 150-450 [facility] Comment on above: Performed By: #### L 100.0100, L3890.6102, L501.9985, L900.0098, BTS, L3890.6006, L3890.6301, L509.8002, L509.4006 #### [facility] [address] [place], [address] RBC (Bld) [#/Vol] 4.23 10*6/uL Normal 4.2-5.4 [facility] Comment on above: Performed By: #### L 100.0100, L3890.6102, L501.9985, L900.0098, BTS, L3890.6006, L3890.6301, L509.8002, L509.4006 #### [facility] [address] [place], [address] RDW SD 41.6 fl Normal 35.1-43.9 [facility] Comment on above: Performed By: #### L 100.0100, L3890.6102, L501.9985, L900.0098, BTS, L3890.6006, L3890.6301, L509.8002, L509.4006 #### [facility] [address] [place], [place], [id number] (065) WBC (Bld) [#/Vol] 13.0 10*3/uL High 4.4-11.0 [facility] Comment on above: Performed By: #### L 100.0100, L3890.6102, L501.9985, L900.0098, BTS, L3890.6006, L3890.6301, L509.8002, L509.4006 #### [facility] [address] [facility] [place], [address] Eosinophil percentageOrdered By: Susie Solomon on 07-07-2024 Eosinophils/100 WBC (Bld) 1.0 % 0-5 [facility] Erythrocyte distribution wid th ratioOrdered By: Susie Solomon on 07-07-2024 Erythrocyte distribution width (RBC) [Ratio] 13.0 % 11.6-14.6 [facility] Erythrocyte distribution wid th standard deviationOrdered By: Susie Solomon on 07-07-2024 Erythrocyte distribution width (RBC) [Entitic vol] 41.6 fL 35.1-43.9 [facility] Erythrocyte distribution width (RBC) [Ratio] 41.6 fl 35.1-43.9 [facility] HBV surface Ag Ql (S)Ordered By: Susie Solomon on 07-07-2024 Hepatitis B Surface Antigen Non-Reactive Nonreactive [facility] Comment on above: Reactive: Presumptiv e evidence of HBV. Repeatedly reactive samples must be confirmed using a neutralization test ([employer] HBsAg Confirmatory Test)Non-Reactive: HBsAg not detected; does not exclude the possibility of exposure to HBV Hematocrit Auto (Bld) [Volum e fraction]Ordered By: Susie Solomon on 07-07-2024 Hematocrit (Bld) [Volume fraction] 37.1 % 37-47 [facility] Hemoglobin A1con 07-07-2024 HbA1c (Bld) [Mass fraction] 5.1 % Low <=5.6 [facility] Comment on above: Performed By: #### L 100.0100, L3890.6102, L501.9985, L900.0098, BTS, L3890.6006, L3890.6301, L509.8002, L509.4006 #### [facility] [address] [place], [address] Hemoglobin A1c percentageOrd ered By: Susie Solomon on 07-07-2024 HbA1c (Bld) [Mass fraction] 5.1 % Low >5.7 [facility] Hemoglobin measurementOrdere d By: Susie Solomon on 07-07-2024 Hemoglobin (Bld) [Mass/Vol] 12.6 g/dL 12.0-15.0 [facility] Hepatitis C antibodyOrdered By: Susie Solomon on 07-07-2024 Hepatitis C Antibody Non-Reactive Nonreactive [facility] Comment on above: Reactive: Presumptiv e evidence of antibodies to HCV. Follow CDC recommendations for supplemental testing.Non-Reactive: Antibodies to HCV were not detected; does not exclude the possibility of exposure to HCVReactive Results are presumptive evidence of antibodies to HCV. Follow CDC recommendations for supplemental testing.Order confirmation testing: HCV Quant by PCR testing - HCVPCR #[id number] Non Reactive: < 0.8 Equivocal: >/= 0.8 to < 1.0 Reactive: >/= 1.0The CDC requires that a reactive/equivocal HCV antibody result be sent out for confirmation. HCV Quant by PCR testing. Immature granulocytes/100 WB C Auto (Bld)Ordered By: Susie Solomon on 07-07-2024 Immature granulocytes/100 WBC (Bld) 1.400 % High 0.0-0.9 [facility] Comment on above: IG% - Immature Granu locytes (promyelocytes, myelocytes and metamyelocytes) > 1% indicates that a LEFT SHIFT is Present. L3890.6006on 07-07-2024 HIV Non-Reactive Normal Nonreactive [facility] Comment on above: Result Comment: Non- Reactive Reactive Repeatedly reactive samples must be confirmed according to CDC recommended confirmatory algorithms. The subresults for either HIVAG or AHIV can be used as an aid in the selection of the confirmation algorithm for reactive samples. [facility]. Order the HIV antibody detection and differentiation: lc#[id number] Performed By: #### L 100.0100, L3890.6102, L501.9985, L900.0098, BTS, L3890.6006, L3890.6301, L509.8002, L509.4006 #### [facility] [address] [place], [address] L3890.6102on 07-07-2024 HEP B Surf Ag Non-Reactive Normal Nonreactive [facility] Comment on above: Result Comment: Reac tive: Presumptive evidence of HBV. Repeatedly reactive samples must be confirmed using a neutralization test ([employer] HBsAg Confirmatory Test) Non-Reactive: HBsAg not detected; does not exclude the possibility of exposure to HBV Performed By: #### L 100.0100, L3890.6102, L501.9985, L900.0098, BTS, L3890.6006, L3890.6301, L509.8002, L509.4006 #### [facility] [address] [place], [address] L3890.6301on 07-07-2024 Hepatitis C Ab Non-Reactive Normal Nonreactive [facility] Comment on above: Result Comment: Reac tive: Presumptive evidence of antibodies to HCV. Follow CDC recommendations for supplemental testing. Non-Reactive: Antibodies to HCV were not detected; does not exclude the possibility of exposure to HCV Reactive Results are presumptive evidence of antibodies to HCV. Follow CDC recommendations for supplemental testing. Order confirmation testing: HCV Quant by PCR testing - HCVPCR lc#[id number] Non Reactive: < 0.8 Equivocal: >/= 0.8 to < 1.0 Reactive: >/= 1.0 The [facility] requires that a reactive/equivocal HCV antibody result be sent out for confirmation. HCV Quant by PCR testing. Performed By: #### L 100.0100, L3890.6102, L501.9985, L900.0098, BTS, L3890.6006, L3890.6301, L509.8002, L509.4006 #### [facility] [address] [place], [address] L509.4006on 07-07-2024 Rubella IgG REAC Normal Nonreactive [facility] Comment on above: Result Comment: Anti body Result: Interpretation Non-Reactive: Non-Immune Reactive: Immune The following results were obtained with the [employer] Rubella IgG assay. Results from assays of other manufacturers cannot be used interchangeably. Performed By: #### L 100.0100, L3890.6102, L501.9985, L900.0098, BTS, L3890.6006, L3890.6301, L509.8002, L509.4006 #### [facility] [address] [place], [place], [address] L509.8002on 07-07-2024 Syphilis Abs Non-Reactive Normal Nonreactive [facility] Comment on above: Performed By: #### L 100.0100, L3890.6102, L501.9985, L900.0098, BTS, L3890.6006, L3890.6301, L509.8002, L509.4006 #### [facility] [address] [place], [place], [address] Laboratory - Chemistry and C hemistry - challengeOrdered By: Nita Mcintosh on 07-07-2024 Glucose Ql (U) Negative [facility] - Microbiology an d Antimicrobial susceptibilityOrdered By: Susie Solomon on 07-07-2024 HBV surface Ag Ql (S) Non-Reactive Nonreactive [facility] Comment on above: Reactive: Presumptiv e evidence of HBV. Repeatedly reactive samples must be confirmed using a neutralization test ([employer] HBsAg Confirmatory Test)Non-Reactive: HBsAg not detected; does not exclude the possibility of exposure to HBV Laboratory - UrinalysisOrder ed By: Nita Mcintosh on 07-07-2024 Protein Ql (U) Negative [facility] Lymphocytes Auto (Unsp spec) [#/Vol]Ordered By: Susie Solomon on 07-07-2024 Lymphocytes (Bld) [#/Vol] 2.97 10*3/uL 0.83-4.51 [facility] Lymphocytes/100 WBC Auto (Un sp spec)Ordered By: Susie Solomon on 07-07-2024 Lymphocytes/100 WBC (Bld) 22.8 % 19-41 [facility] MCV (mean corpuscular volume ) determinationOrdered By: Susie Solomon on 07-07-2024 MCV (RBC) [Entitic vol] 87.7 fL 81-99 [facility] Mean corpuscular hemoglobin (MCH) determinationOrdered By: Susie Solomon on 07-07-2024 MCH (RBC) [Entitic mass] 29.8 pg 27.0-32.0 [facility] Mean corpuscular hemoglobin concentration (MCHC) determinationOrdered By: Susie Solomon on 07-07-2024 MCHC (RBC) [Mass/Vol] 34.0 g/dL 32-36 [facility] Mean platelet volume determi nationOrdered By: Susie Solomon on 07-07-2024 Platelet mean volume (Bld) [Entitic vol] 11.3 fL 6.2-12.0 [facility] Miscellaneous procedureOrder ed By: Susie Solomon on 07-07-2024 Miscellaneous Test Comment SEE SCANNED REPORT [facility] Monocyte percentageOrdered B y: Susie Solomon on 07-07-2024 Monocytes/100 WBC (Bld) 6.1 % 0-10 [facility] NATERAon 07-07-2024 NATURA SEE SCANNED REPORT Normal [facility] Comment on above: Order Comment: Comme nts: NIPT with Gender Performed By: #### L 100.0100, L3890.6102, L501.9985, L900.0098, BTS, L3890.6006, L3890.6301, L509.8002, L509.4006 #### [facility] [address] [place], [address] Neutrophil percentageOrdered By: Susie Solomon on 07-07-2024 Neutrophils/100 WBC (Bld) 68.4 % 47-70 [facility] No Panel InformationOrdered By: Susie Solomon on 07-07-2024 HIV (1&2) Antibody Non-Reactive Nonreactive [facility] Comment on above: Non-ReactiveReactive Repeatedly reactive samples must be confirmed according to CDC recommended confirmatory algorithms. The subresults for either HIVAG or AHIV can be used as an aid in the selection of the confirmation algorithm for reactive samples.Send out specimens with Reactive results to [facility] for confirmation.Order the HIV antibody detection and differentiation: #[id number] Nucleated red blood cell per centageOrdered By: Susie Solomon on 07-07-2024 Nucleated RBC/100 WBC (Bld) [Ratio] 0 % 0-5 [facility] Mail Sorting Supervisor Office Visit Reporton 07-07-2024 Mail Sorting Supervisor Office Visit Report [facility]'[address], [address] [place] [address] OFFICE VISIT Date of Service: 07/07/24 MR#: [id number] Acct: [id number] Name: LUCIANO KENDALL Rep #: [id number] : 2000 Provider: Dr. Nita motley MD Age/Sex: 24/F [place] [facility] [place]: Signed Intake Vital Signs 05/04/24 14:48 06/04/24 13:01 07/07/24 15:11 Height 5 ft 8 in 5 ft 8 in 5 ft 8 in Weight: 226 lb 4 oz 228 lb 8 oz BMI 34.4 34.7 BP 128/82 H 131/84 H Intake Visit Reasons: 13wk OB Leather Grainer Required: No Is patient in pain?: No [...] : No PFSH PFSH Medical History Congenital upjujo-bmkcnrt-auuii reflux Gallstones UTI (urinary tract infection) Asthma Surgical History Hx of cholecystectomy Hx of tonsillectomy Family History Father Diabetes Type 1 Aunt Thyroid disorder Maternal Mother Thyroid disorder enlarged Grandmother Breast cancer Paternal Social History adopted: No household members: significant other 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al status: 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 (more content not included)... Normal [facility] Platelet countOrdered By: Diego Solomon on 07-07-2024 Platelets (d) [#/Vol] 225 10*3/uL 150-450 [facility] RBC Auto (d) [#/Vol]Ordere d By: Susie Solomon on 07-07-2024 RBC (d) [#/Vol] 4.23 10*6/uL 4.2-5.4 [facility] Rubella immune status determ ination by IgG antibody assayOrdered By: Susie Solomon on 07-07-2024 Rubella IgG Antibody REAC Nonreactive [facility] Comment on above: Antibody Result: Int erpretationNon-Reactive: Non-ImmuneReactive: ImmuneThe following results were obtained with the [employer] Rubella IgG assay. Results from assays of other manufacturers cannot be used interchangeably. T. pallidum abOrdered By: Diego Solomon on 07-07-2024 Syphilis Total Antibody Non-Reactive Nonreactiv e [facility] Type AND Screenon 07-07-2024 ABO and Rh group Nom (Bld) Blood group O Rh(D) positive Normal [facility] Comment on above: Order Comment: PN Performed By: #### L 100.0100, L3890.6102, L501.9985, L900.0098, BTS, L3890.6006, L3890.6301, L509.8002, L509.4006 #### [facility] [address] [place], [address] White blood cell (WBC) count Ordered By: Susie Solomon on 07-07-2024 WBC (Bld) [#/Vol] 13.0 10*3/uL High 4.4-11.0 [facility] Chlamydia/GC NILDA aptimaon CHLAMY,NUC ACID Negative Normal Negative [facility] Comment on above: Performed By: #### L 100.0100, L3890.6102, L501.9985, L900.0098, BTS, L3890.6006, L3890.6301, L509.8002, L509.4006 #### [facility] [address] [place], [address] GC BY NUC ACID Negative Normal Negative [facility] Comment on above: Result Comment: Perf ormed at: =G - [facility] [address] [id number] Pulmonologist Intensivist: Lisa Morris MD, Phone: [phone] Performed By: #### L 100.0100, L3890.6102, L501.9985, L900.0098, BTS, L3890.6006, L3890.6301, L509.8002, L509.4006 #### [facility] [address] [place], [address] Urine Cultureon 06-07-2024 URC Below infection level. Mixed Gram Positive Organisms [place] Count <1000 MIXC Mixed contaminants. Submit a new specimen if indicated. Normal [facility] Comment on above: Performed By: #### L 100.0100, L3890.6102, L501.9985, L900.0098, BTS, L3890.6006, L3890.6301, L509.8002, L509.4006 #### [facility] [address] [place], [address] C. trachomatis rRNA NILDA+prob e Ql (Unsp spec)Ordered By: Susie Solomon on 06-04-2024 Chlamydia DNA (NILDA) Negative Negative [facility] Chlamydia trachomatis rRNA d etection by probe and target amplification methodOrdered By: Susie Solomon on 06-04-2024 C. trachomatis rRNA NILDA+probe Ql (Unsp spec) Negative Negative [facility] Neisseria gonorrhoeae nuclei c acid detection by amplified probe techniqueOrdered By: Susie Solomon on 06-04-2024 N. gonorrhoeae DNA NILDA+probe Ql (Unsp spec) Negative Negative [facility] Comment on above: Performed at: =G - L [address] [id number] Director: Lisa Morris MD, Phone: [phone] Mail Sorting Supervisor Office Visit Reporton 06-04-2024 Mail Sorting Supervisor Office Visit Report [facility]'s [address], [address] [place] [address] OFFICE VISIT Date of Service: 06/04/24 MR#: [id number] Acct: [id number] Name: LUCIANO KENDALL Rep #: [id number] : 2000 Provider: ALEXANDRA Coughlin ams Age/Sex: 23/F Location[place] [facility] Status: Signed Intake Vital Signs 04/15/24 11:31 [...] Fe) Last Menstrual Period: 04/01/24 : Yes [facility] Medical History Congenital qmvyew-djntbkd-fpthu reflux Gallstones UTI (urinary tract infection) Asthma Surgical History Hx of cholecystectomy Hx of tonsillectomy Family History Father Diabetes Type 1 Aunt Thyroid disorder Maternal Mother Thyroid disorder enlarged Grandmother Breast cancer Paternal Social History adopted: No household members: significant other 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al status: employed 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 Normal [facility] Urine cultureOrdered By: Singh Solomon on 06-04-2024 Bacteria identified Cx Nom (U) Positive Abnormal [facility] PAP I-G w/rfx hrHPV-Aptimaon 04-24-2024 ADEQ Comment Normal . [facility] Comment on above: Order Comment: Speci men Comment: [id number] Specimen Comment: Source.............Cervix;Endocervix Specimen Comment: No. of containers..01 ThinPrep Vial Result Comment: Sati sfactory for evaluation. No endocervical component is identified. Performed By: #### L 7400.0353 #### [facility] [address] [place], [place], [address] COMM . Normal . [facility] Comment on above: Order Comment: Speci men Comment: [id number] Specimen Comment: Source.............Cervix;Endocervix Specimen Comment: No. of containers..01 ThinPrep Vial Performed By: #### L 7400.0353 #### [facility] [address] [place], [place], [address] COMMENT Comment Normal . [facility] Comment on above: Order Comment: Speci men Comment: [id number] Specimen Comment: Source.............Cervix;Endocervix Specimen Comment: No. of containers..01 ThinPrep Vial Result Comment: This liquid based ThinPrep(R) pap test was screened with the use of an image guided system. Performed By: #### L 7400.0353 #### [facility] [address] [place], [place], [address] DIAG Comment Normal . [facility] Comment on above: Order Comment: Speci men Comment: [id number] Specimen Comment: Source.............Cervix;Endocervix Specimen Comment: No. of containers..01 ThinPrep Vial Result Comment: NEGA TIVE FOR INTRAEPITHELIAL LESION OR MALIGNANCY. Performed By: #### L 7400.0353 #### [facility] [address] [place], [address] HPV RFLX Comment Normal . [facility] Comment on above: Order Comment: Speci men Comment: [id number] Specimen Comment: Source.............Cervix;Endocervix Specimen Comment: No. of containers..01 ThinPrep Vial Result Comment: The HPV DNA reflex criteria were not met with this specimen result therefore, no HPV testing was performed. Performed at: [address] [id number] Pulmonologist Intensivist: Lisa Morris MD, Phone: [phone] Performed By: #### L 7400.0353 #### [facility] [address] [place], [address] PAPSMR Comment Normal . [facility] Comment on above: Order Comment: Speci men Comment: [id number] Specimen Comment: Source.............Cervix;Endocervix Specimen Comment: No. of [...] occur. Performed By: #### L 7400.0353 #### [facility] [address] [place], [place], [address] PERFORM Comment Normal . [facility] Comment on above: Order Comment: Speci men Comment: [id number] Specimen Comment: Source.............Cervix;Endocervix Specimen Comment: No. of containers..01 ThinPrep Vial Result Comment: Karla Archer, Parts Interpreter (ASCP) Performed By: #### L 7400.0353 #### [facility] [address] [place], [place], [address] Pump Attendant Cyto stain Nom (C vx/Vag) [ID]Ordered By: Magda Franklin on 04-15-2024 Pap Smear Performed By Comment . [facility] Comment on above: Karla Archer, Cytote chnologist (ASCP) Cytology report Cyto stain D oc (Cvx/Vag)Ordered By: Magda Franklin on 04-15-2024 Thin Prep Pap Smear Comment . [facility] Comment on above: The Pap smear is a s creening test designed to aid in thedetection of premalignant and malignant conditions of theuterine cervix. It is not a diagnostic procedure andshould not be used as the sole means of detecting cervicalcancer. Both false-positive and false-negative reports dooccur. Image-guided ThinPrep PapOrd ered By: Magda Franklin on 04-15-2024 Pap Smear Note Comment . [facility] Comment on above: This liquid based Th inPrep(R) pap test was screened withthe use of an image guided system. Image-guided liquid-based Pa pOrdered By: Magda Franklin on 04-15-2024 Pap Smear Diagnosis Comment . [facility] Comment on above: NEGATIVE FOR INTRAEP ITHELIAL LESION OR MALIGNANCY. Image-guided liquid-based ce rvical Pap w high-risk HPV+reflex to HPV 16+18Ordered By: Magda Franklin on 04-15-2024 Human Papillomavirus Screen Comment . [facility] Comment on above: The HPV DNA reflex c nava were not met with this specimenresult therefore, no HPV testing was performed.Performed at: [facility] [id number] Director: Lisa Morris MD, Phone: [phone] Kidney and Bladderon 024 Kidney and Bladder [facility] Services [address] [place] [address] Kidney and Bladder MR#: [id number] Acct: [id number] Name: LUCIANO KENDALL Rep #: [id number] : 2000 F 23 From: Jemal Grimes DO PCP: Dr. Donald Waller MD Status: [facility] Study: Kidney and Bladder Date of Exam: 04/15/24 Exam# [id number] Ordering Dr: Donald Waller MD [id number] INDICATION: UTI EXAMINATION: Ultrasound US Kidney(s) complete [...] 23:21 EST Reading Location ID and State: [facility] / [place] Tel [phone], Service support , CC: Dr. 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 Normal [facility] Service comment (Unsp spec) [Interp]Ordered By: Magda Franklin on 04-15-2024 Pap Smear Comment (3) . . [facility] Basic Metabolic Profile (BMP )on 04-10-2024 BUN/CRE 9.6 RATIO Low 10-20 [facility] Comment on above: Order Comment: Order Date: 04/06/24Order Info: 666-04 - BMP Performed By: #### L 100.0100, L3890.6102, L501.9985, L900.0098, BTS, L3890.6006, L3890.6301, L509.8002, L509.4006 #### [facility] [address] [place], [address] CA,Total 9.5 mg/dL Normal 8.5-10.1 [facility] Comment on above: Order Comment: Order Date: 04/06/24Order Info: 666-04 - BMP Performed By: #### L 100.0100, L3890.6102, L501.9985, L900.0098, BTS, L3890.6006, L3890.6301, L509.8002, L509.4006 #### [facility] [address] [place], [address] Chloride [Moles/Vol] 108 mmol/L High 98-107 [facility] Comment on above: Order Comment: Order Date: 04/06/24Order Info: 06 - BMP Performed By: #### L 100.0100, L3890.6102, L501.9985, L900.0098, BTS, L3890.6006, L3890.6301, L509.8002, L509.4006 #### [facility] [address] [place], [address] CO2 [Moles/Vol] 25.0 mmol/L Normal 21.0-32.0 [facility] Comment on above: Order Comment: Order Date: 04/06/24Order Info: 06 - BMP Performed By: #### L 100.0100, L3890.6102, L501.9985, L900.0098, BTS, L3890.6006, L3890.6301, L509.8002, L509.4006 #### [facility] [address] [place], [address] Creatinine [Mass/Vol] 1.14 mg/dL High 0.55-1.02 [facility] Comment on above: Order Comment: Order Date: 04/06/24Order Info: 0667- - BMP Result Comment: The validity of the calculated GFR GFRAA in patients over 70 years has not been determined. Clinical correlation is essential. Performed By: #### L 100.0100, L3890.6102, L501.9985, L900.0098, BTS, L3890.6006, L3890.6301, L509.8002, L509.4006 #### [facility] [address] [place], [address] (758) EST GFR - AA 75 mL/min Normal >60 [facility] Comment on above: Order Comment: Order Date: 04/06/24Order Info: 0667- - BMP Result Comment: Afri can Italian GFR Calc Performed By: #### L 100.0100, L3890.6102, L501.9985, L900.0098, BTS, L3890.6006, L3890.6301, L509.8002, L509.4006 #### [facility] [address] [place], [place], [id number] (471) GAP 6 Normal 5-15 [facility] Comment on above: Order Comment: Order Date: 04/06/24Order Info: 0667- - BMP Performed By: #### L 100.0100, L3890.6102, L501.9985, L900.0098, BTS, L3890.6006, L3890.6301, L509.8002, L509.4006 #### [facility] [address] [place], [address] GFR/1.73 sq M.predicted among non-blacks MDRD (S/P/Bld) [Vol rate/Area] 62 mL/min/{1.73_m2} Normal >60 [facility] Comment on above: Order Comment: Order Date: 04/06/24Order Info: 0667-1 - BMP Result Comment: Non- GFR Calc Performed By: #### L 100.0100, L3890.6102, L501.9985, L900.0098, BTS, L3890.6006, L3890.6301, L509.8002, L509.4006 #### [facility] [address] [place], [address] Glucose [Mass/Vol] 93 mg/dL Normal 74-106 [facility] Comment on above: Order Comment: Order Date: 04/06/24Order Info: 0667-1 - BMP Performed By: #### L 100.0100, L3890.6102, L501.9985, L900.0098, BTS, L3890.6006, L3890.6301, L509.8002, L509.4006 #### [facility] [address] [place], [address] Potassium [Moles/Vol] 4.2 mmol/L Normal 3.5-5.1 [facility] Comment on above: Order Comment: Order Date: 04/06/24Order Info: 0667-1 - BMP Performed By: #### L 100.0100, L3890.6102, L501.9985, L900.0098, BTS, L3890.6006, L3890.6301, L509.8002, L509.4006 #### [facility] [address] [place], [address] Sodium [Moles/Vol] 139 mmol/L Normal 136-145 [facility] Comment on above: Order Comment: Order Date: 04/06/24Order Info: 0667-1 - BMP Performed By: #### L 100.0100, L3890.6102, L501.9985, L900.0098, BTS, L3890.6006, L3890.6301, L509.8002, L509.4006 #### [facility] [address] [place], [address] Urea nitrogen [Mass/Vol] 11 mg/dL Normal 7-18 [facility] Comment on above: Order Comment: Order Date: 04/06/24Order Info: 0667-1 - BMP Performed By: #### L 100.0100, L3890.6102, L501.9985, L900.0098, BTS, L3890.6006, L3890.6301, L509.8002, L509.4006 #### [facility] [address] [place], [address] Blood urea nitrogen (BUN)/cr eatinine ratioOrdered By: Donald Waller on 04-10-2024 Urea nitrogen/Creatinine [Mass ratio] 9.6 mg/mg Low 10-20 [facility] Carbon dioxide measurementOr dered By: Donald Waller on 04-10-2024 CO2 [Moles/Vol] 25.0 mmol/L 21.0-32.0 [facility] Chloride measurementOrdered By: Donald Waller on 04-10-2024 Chloride [Moles/Vol] 108 mmol/L High 98-107 [facility] Estimated glomerular filtrat ion rate (GFR) AmericanOrdered By: Donald Waller on 04-10-2024 Estimated GFR (MDRD) Amer 75 mL/min >60 [facility] Comment on above: GFR Calc Glomerular filtration rate ( GFR) estimationOrdered By: Donald Waller on 04-10-2024 Estimated GFR (MDRD) Non-Af Amer 62 mL/min >60 [facility] Comment on above: Non- GFR Calc Glucose measurementOrdered B y: Donald Waller on 04-10-2024 Glucose [Mass/Vol] 93 mg/dL 74-106 [facility] Potassium measurementOrdered By: Donald Waller on 04-10-2024 Potassium [Moles/Vol] 4.2 mmol/L 3.5-5.1 [facility] Serum anion gap measurementO rdered By: Donald Waller on 04-10-2024 Anion gap [Moles/Vol] 6 mmol/L 5-15 [facility] Serum or plasma calcium mika urement (mass/volume)Ordered By: Donald Waller on 04-10-2024 Calcium [Mass/Vol] 9.5 mg/dL 8.5-10.1 [facility] Serum or plasma creatinine m easurement (mass/volume)Ordered By: Donald Waller on 04-10-2024 Creatinine [Mass/Vol] 1.14 mg/dL High 0.55-1.02 [facility] Comment on above: The validity of the calculated GFR & GFRAA in patients over 70 years has not been determined. Clinical correlation is essential. Serum or plasma urea nitroge n measurement (mass/volume)Ordered By: Donald Waller on 04-10-2024 Urea nitrogen [Mass/Vol] 11 mg/dL 7-18 [facility] Sodium levelOrdered By: Donald Waller on 04-10-2024 Sodium [Moles/Vol] 139 mmol/L 136-145 [facility] Absolute neutrophil countOrd ered By: Donald Waller on 04-03-2024 Neutrophils (Bld) [#/Vol] 4.1 10*3/uL 2.0-7.7 [facility] Albumin to globulin ratioOrd ered By: Donald Waller on 04-03-2024 Albumin/Globulin [Mass ratio] 1.2 {ratio} 0.9-2.4 [facility] Basophil percentageOrdered B y: Donald Waller on 04-03-2024 Basophils/100 WBC (Bld) 0.5 % 0-1 [facility] Bilirubin Test strip Ql (U)O rdered By: Donald Waller on 04-03-2024 Bilirubin Ql (U) Negative Negative [facility] Bilirubin, totalOrdered By: Donald Waller on 04-03-2024 Bilirubin [Mass/Vol] 0.40 mg/dL 0.20-1.00 [facility] Comment on above: For patients on eltr ombopag therapy, use of Dimension Medon TBIL is not recommended. Blood urea nitrogen (BUN)/cr eatinine ratioOrdered By: Donald Waller on 04-03-2024 Urea nitrogen/Creatinine [Mass ratio] 14.5 mg/mg 10- [facility] CBC W/Diff, Automatedon 12 Absolute Lymph 2.63 X10 3/uL Normal 0.83-4.51 [facility] Comment on above: Order Comment: Order Date: 04/03/24Order Info: 018- - CBCD Performed By: #### L 100.0100, L3890.6102, L501.9985, L900.0098, BTS, L3890.6006, L3890.6301, L509.8002, L509.4006 #### [facility] [address] [place], [address] Absolute Neut 4.1 X10 3/uL Normal 2.0-7.7 [facility] Comment on above: Order Comment: Order Date: 04/03/24Order Info: 018- - CBCD Performed By: #### L 100.0100, L3890.6102, L501.9985, L900.0098, BTS, L3890.6006, L3890.6301, L509.8002, L509.4006 #### [facility] [address] [place], [address] Basophils/100 WBC (Bld) 0.5 % Normal 0-1 [facility] Comment on above: Order Comment: Order Date: 04/03/24Order Info: 018- - CBCD Performed By: #### L 100.0100, L3890.6102, L501.9985, L900.0098, BTS, L3890.6006, L3890.6301, L509.8002, L509.4006 #### [facility] [address] [place], [address] Eosinophils/100 WBC (Bld) 1.6 % Normal 0-5 [facility] Comment on above: Order Comment: Order Date: 04/03/24Order Info: 0184-1 - CBCD Performed By: #### L 100.0100, L3890.6102, L501.9985, L900.0098, BTS, L3890.6006, L3890.6301, L509.8002, L509.4006 #### [facility] [address] [place], [address] Erythrocyte distribution width (RBC) [Ratio] 12.1 % Normal 11.6-14.6 [facility] Comment on above: Order Comment: Order Date: 04/03/24Order Info: 0184-1 - CBCD Performed By: #### L 100.0100, L3890.6102, L501.9985, L900.0098, BTS, L3890.6006, L3890.6301, L509.8002, L509.4006 #### [facility] [address] [place], [address] Hematocrit (Bld) [Volume fraction] 39.2 % Normal 37-47 [facility] Comment on above: Order Comment: Order Date: 04/03/24Order Info: 0184-1 - CBCD Performed By: #### L 100.0100, L3890.6102, L501.9985, L900.0098, BTS, L3890.6006, L3890.6301, L509.8002, L509.4006 #### [facility] [address] [place], [address] Hemoglobin (Bld) [Mass/Vol] 12.8 g/dL Normal 12.0-15.0 [facility] Comment on above: Order Comment: Order Date: 04/03/24Order Info: 0184-1 - CBCD Performed By: #### L 100.0100, L3890.6102, L501.9985, L900.0098, BTS, L3890.6006, L3890.6301, L509.8002, L509.4006 #### [facility] [address] [place], [address] IG% 0.400 Normal 0.0-0.9 [facility] Comment on above: Order Comment: Order Date: 04/03/24Order Info: 0184-1 - CBCD Result Comment: IG% - Immature Granulocytes (promyelocytes, myelocytes and metamyelocytes) > 1% indicates that a LEFT SHIFT is Present. Performed By: #### L 100.0100, L3890.6102, L501.9985, L900.0098, BTS, L3890.6006, L3890.6301, L509.8002, L509.4006 #### [facility] [address] [place], [address] Lymphocytes/100 WBC (Bld) 35.3 % Normal 19-41 [facility] Comment on above: Order Comment: Order Date: 04/03/24Order Info: 0184-1 - CBCD Performed By: #### L 100.0100, L3890.6102, L501.9985, L900.0098, BTS, L3890.6006, L3890.6301, L509.8002, L509.4006 #### [facility] [address] [place], [address] MCH (RBC) [Entitic mass] 29.3 pg Normal 27.0-32.0 [facility] Comment on above: Order Comment: Order Date: 04/03/24Order Info: 0184-1 - CBCD Performed By: #### L 100.0100, L3890.6102, L501.9985, L900.0098, BTS, L3890.6006, L3890.6301, L509.8002, L509.4006 #### [facility] [address] [place], [address] MCHC (RBC) [Mass/Vol] 32.7 g/dL Normal 32-36 [facility] Comment on above: Order Comment: Order Date: 04/03/24Order Info: 0184-1 - CBCD Performed By: #### L 100.0100, L3890.6102, L501.9985, L900.0098, BTS, L3890.6006, L3890.6301, L509.8002, L509.4006 #### [facility] [address] [place], [address] MCV (RBC) [Entitic vol] 89.7 fL Normal 81-99 [facility] Comment on above: Order Comment: Order Date: 04/03/24Order Info: 018-1 - CBCD Performed By: #### L 100.0100, L3890.6102, L501.9985, L900.0098, BTS, L3890.6006, L3890.6301, L509.8002, L509.4006 #### [facility] [address] [place], [address] Monocytes/100 WBC (Bld) 6.7 % Normal 0-10 [facility] Comment on above: Order Comment: Order Date: 04/03/24Order Info: 0184-1 - CBCD Performed By: #### L 100.0100, L3890.6102, L501.9985, L900.0098, BTS, L3890.6006, L3890.6301, L509.8002, L509.4006 #### [facility] [address] [place], [address] Neutrophils/100 WBC (Bld) 55.5 % Normal 47-70 [facility] Comment on above: Order Comment: Order Date: 04/03/24Order Info: 0184-1 - CBCD Performed By: #### L 100.0100, L3890.6102, L501.9985, L900.0098, BTS, L3890.6006, L3890.6301, L509.8002, L509.4006 #### [facility] [address] [place], [address] Nucleated RBC (Bld) [#/Vol] 0 10*3/uL Normal 0-5 [facility] Comment on above: Order Comment: Order Date: 04/03/24Order Info: 0184-1 - CBCD Performed By: #### L 100.0100, L3890.6102, L501.9985, L900.0098, BTS, L3890.6006, L3890.6301, L509.8002, L509.4006 #### [facility] [address] [place], [address] Platelet mean volume (Bld) [Entitic vol] 10.8 fL Normal 6.2-12.0 [facility] Comment on above: Order Comment: Order Date: 04/03/24Order Info: 0184-1 - CBCD Performed By: #### L 100.0100, L3890.6102, L501.9985, L900.0098, BTS, L3890.6006, L3890.6301, L509.8002, L509.4006 #### [facility] [address] [place], [address] Platelets (Bld) [#/Vol] 248 10*3/uL Normal 150-450 [facility] Comment on above: Order Comment: Order Date: 04/03/24Order Info: 0184-1 - CBCD Performed By: #### L 100.0100, L3890.6102, L501.9985, L900.0098, BTS, L3890.6006, L3890.6301, L509.8002, L509.4006 #### [facility] [address] [place], [address] RBC (Bld) [#/Vol] 4.37 10*6/uL Normal 4.2-5.4 [facility] Comment on above: Order Comment: Order Date: 04/03/24Order Info: 01807-28 - CBCD Performed By: #### L 100.0100, L3890.6102, L501.9985, L900.0098, BTS, L3890.6006, L3890.6301, L509.8002, L509.4006 #### [facility] [address] [place], [address] RDW SD 40.1 fl Normal 35.1-43.9 [facility] Comment on above: Order Comment: Order Date: 04/03/24Order Info: 183-04 - CBCD Performed By: #### L 100.0100, L3890.6102, L501.9985, L900.0098, BTS, L3890.6006, L3890.6301, L509.8002, L509.4006 #### [facility] [address] [place], [place], [id number] (546) WBC (Bld) [#/Vol] 7.5 10*3/uL Normal 4.4-11.0 [facility] Comment on above: Order Comment: Order Date: 04/03/24Order Info: 01807-28 - CBCD Performed By: #### L 100.0100, L3890.6102, L501.9985, L900.0098, BTS, L3890.6006, L3890.6301, L509.8002, L509.4006 #### [facility] [address] [place], [place], [address] Carbon dioxide measurementOr dered By: Donald Waller on 04-03-2024 CO2 [Moles/Vol] 27.0 mmol/L 21.0-32.0 [facility] Chloride measurementOrdered By: Donald Waller on 04-03-2024 Chloride [Moles/Vol] 109 mmol/L High 98-107 [facility] Comprehensive Metabolic Prof ilon 04-03-2024 Albumin [Mass/Vol] 4.1 g/dL Normal 3.2-5.0 [facility] Comment on above: Order Comment: Order Date: 04/03/24Order Info: 0786-1 - CMP Performed By: #### L 100.0100, L3890.6102, L501.9985, L900.0098, BTS, L3890.6006, L3890.6301, L509.8002, L509.4006 #### [facility] [address] [place], [address] Albumin/Globulin [Mass ratio] 1.2 {ratio} Normal 0.9-2.4 [facility] Comment on above: Order Comment: Order Date: 04/03/24Order Info: 0786-1 - CMP Performed By: #### L 100.0100, L3890.6102, L501.9985, L900.0098, BTS, L3890.6006, L3890.6301, L509.8002, L509.4006 #### [facility] [address] [place], [address] ALK P 54 U/L Normal 45-117 [facility] Comment on above: Order Comment: Order Date: 04/03/24Order Info: 0786-1 - CMP Performed By: #### L 100.0100, L3890.6102, L501.9985, L900.0098, BTS, L3890.6006, L3890.6301, L509.8002, L509.4006 #### [facility] [address] [place], [address] ALT [Catalytic activity/Vol] 28 U/L Normal 13-56 [facility] Comment on above: Order Comment: Order Date: 04/03/24Order Info: 0786-1 - CMP Performed By: #### L 100.0100, L3890.6102, L501.9985, L900.0098, BTS, L3890.6006, L3890.6301, L509.8002, L509.4006 #### [facility] [address] [place], [address] AST [Catalytic activity/Vol] 20 U/L Normal 15-37 [facility] Comment on above: Order Comment: Order Date: 04/03/24Order Info: 0786-1 - CMP Performed By: #### L 100.0100, L3890.6102, L501.9985, L900.0098, BTS, L3890.6006, L3890.6301, L509.8002, L509.4006 #### [facility] [address] [place], [address] Bilirubin [Mass/Vol] 0.40 mg/dL Normal 0.20-1.00 [facility] Comment on above: Order Comment: Order Date: 04/03/24Order Info: 0786-1 - CMP Result Comment: For patients on eltrombopag therapy, use of Dimension Medon TBIL is not recommended. Performed By: #### L 100.0100, L3890.6102, L501.9985, L900.0098, BTS, L3890.6006, L3890.6301, L509.8002, L509.4006 #### [facility] [address] [place], [address] BUN/CRE 14.5 RATIO Normal 10-20 [facility] Comment on above: Order Comment: Order Date: 04/03/24Order Info: 0786-1 - CMP Performed By: #### L 100.0100, L3890.6102, L501.9985, L900.0098, BTS, L3890.6006, L3890.6301, L509.8002, L509.4006 #### [facility] [address] [place], [address] CA,Total 9.1 mg/dL Normal 8.5-10.1 [facility] Comment on above: Order Comment: Order Date: 04/03/24Order Info: 0786-1 - CMP Performed By: #### L 100.0100, L3890.6102, L501.9985, L900.0098, BTS, L3890.6006, L3890.6301, L509.8002, L509.4006 #### [facility] [address] [place], [address] Chloride [Moles/Vol] 109 mmol/L High 98-107 [facility] Comment on above: Order Comment: Order Date: 04/03/24Order Info: 0786-1 - CMP Performed By: #### L 100.0100, L3890.6102, L501.9985, L900.0098, BTS, L3890.6006, L3890.6301, L509.8002, L509.4006 #### [facility] [address] [place], [address] CO2 [Moles/Vol] 27.0 mmol/L Normal 21.0-32.0 [facility] Comment on above: Order Comment: Order Date: 04/03/24Order Info: 0786-1 - CMP Performed By: #### L 100.0100, L3890.6102, L501.9985, L900.0098, BTS, L3890.6006, L3890.6301, L509.8002, L509.4006 #### [facility] [address] [place], [address] Creatinine [Mass/Vol] 1.10 mg/dL High 0.55-1.02 [facility] Comment on above: Order Comment: Order Date: 04/03/24Order Info: 0786-1 - CMP Result Comment: The validity of the calculated GFR GFRAA in patients over 70 years has not been determined. Clinical correlation is essential. Performed By: #### L 100.0100, L3890.6102, L501.9985, L900.0098, BTS, L3890.6006, L3890.6301, L509.8002, L509.4006 #### [facility] [address] [place], [address] EST GFR - AA 78 mL/min Normal >60 [facility] Comment on above: Order Comment: Order Date: 04/03/24Order Info: 0786-1 - CMP Result Comment: Afri can Italian GFR Calc Performed By: #### L 100.0100, L3890.6102, L501.9985, L900.0098, BTS, L3890.6006, L3890.6301, L509.8002, L509.4006 #### [facility] [address] [place], [address] GAP 4 Low 5-15 [facility] Comment on above: Order Comment: Order Date: 04/03/24Order Info: 0786-1 - CMP Performed By: #### L 100.0100, L3890.6102, L501.9985, L900.0098, BTS, L3890.6006, L3890.6301, L509.8002, L509.4006 #### [facility] [address] [place], [address] GFR/1.73 sq M.predicted among non-blacks MDRD (S/P/Bld) [Vol rate/Area] 64 mL/min/{1.73_m2} Normal >60 [facility] Comment on above: Order Comment: Order Date: 04/03/24Order Info: 0786-1 - CMP Result Comment: Non- GFR Calc Performed By: #### L 100.0100, L3890.6102, L501.9985, L900.0098, BTS, L3890.6006, L3890.6301, L509.8002, L509.4006 #### [facility] [address] [place], [address] Globulin (S) [Mass/Vol] 3.4 g/dL Normal 2.2-4.2 [facility] Comment on above: Order Comment: Order Date: 04/03/24Order Info: 0786-1 - CMP Performed By: #### L 100.0100, L3890.6102, L501.9985, L900.0098, BTS, L3890.6006, L3890.6301, L509.8002, L509.4006 #### [facility] [address] [place], [address] Glucose [Mass/Vol] 77 mg/dL Normal 74-106 [facility] Comment on above: Order Comment: Order Date: 04/03/24Order Info: 0786-1 - CMP Performed By: #### L 100.0100, L3890.6102, L501.9985, L900.0098, BTS, L3890.6006, L3890.6301, L509.8002, L509.4006 #### [facility] [address] [place], [address] Potassium [Moles/Vol] 3.8 mmol/L Normal 3.5-5.1 [facility] Comment on above: Order Comment: Order Date: 04/03/24Order Info: 0786-1 - CMP Performed By: #### L 100.0100, L3890.6102, L501.9985, L900.0098, BTS, L3890.6006, L3890.6301, L509.8002, L509.4006 #### [facility] [address] [place], [address] Sodium [Moles/Vol] 140 mmol/L Normal 136-145 [facility] Comment on above: Order Comment: Order Date: 04/03/24Order Info: 0786-1 - CMP Performed By: #### L 100.0100, L3890.6102, L501.9985, L900.0098, BTS, L3890.6006, L3890.6301, L509.8002, L509.4006 #### [facility] [address] [place], [place], [address] T PROT 7.5 g/dL Normal 6.4-8.2 [facility] Comment on above: Order Comment: Order Date: 04/03/24Order Info: 0786-1 - CMP Performed By: #### L 100.0100, L3890.6102, L501.9985, L900.0098, BTS, L3890.6006, L3890.6301, L509.8002, L509.4006 #### [facility] [address] [place], [address] Urea nitrogen [Mass/Vol] 16 mg/dL Normal 7-18 [facility] Comment on above: Order Comment: Order Date: 04/03/24Order Info: 0786-1 - CMP Performed By: #### L 100.0100, L3890.6102, L501.9985, L900.0098, BTS, L3890.6006, L3890.6301, L509.8002, L509.4006 #### [facility] [address] [place], [place], [address] Eosinophil percentageOrdered By: Donald Waller on 04-03-2024 Eosinophils/100 WBC (Bld) 1.6 % 0-5 [facility] Epithelial cells.squamous LM Ql (Urine sed)Ordered By: Donald Waller on 04-03-2024 Epithelial cells.squamous LM.HPF (Urine sed) [#/Area] 0 /[HPF] 5-10 [facility] Erythrocyte distribution wid th ratioOrdered By: Donald Waller on 04-03-2024 Erythrocyte distribution width (RBC) [Ratio] 12.1 % 11.6-14.6 [facility] Erythrocyte distribution wid th standard deviationOrdered By: Donald Waller on 04-03-2024 Erythrocyte distribution width (RBC) [Entitic vol] 40.1 fL 35.1-43.9 [facility] Estimated glomerular filtrat ion rate (GFR) AmericanOrdered By: Donald Waller on 04-03-2024 Estimated GFR (MDRD) Amer 78 mL/min >60 [facility] Comment on above: GFR Calc Glomerular filtration rate ( GFR) estimationOrdered By: Donald Waller on 04-03-2024 Estimated GFR (MDRD) Non-Af Amer 64 mL/min >60 [facility] Comment on above: Non- GFR Calc Glucose Ql (U)Ordered By: Chantal Waller on 04-03-2024 Urine Glucose (UA) Normal mg/dl Normal [facility] Glucose measurementOrdered B y: Donald Waller on 04-03-2024 Glucose [Mass/Vol] 77 mg/dL 74-106 [facility] Hematocrit Auto (Bld) [Volum e fraction]Ordered By: Donald Waller on 04-03-2024 Hematocrit (Bld) [Volume fraction] 39.2 % 37-47 [facility] Hemoglobin measurementOrdere d By: Donald Waller on 04-03-2024 Hemoglobin (Bld) [Mass/Vol] 12.8 g/dL 12.0-15.0 [facility] Immature granulocytes/100 WB C Auto (Bld)Ordered By: Donald Waller on 04-03-2024 Immature granulocytes/100 WBC (Bld) 0.400 % 0.0-0.9 [facility] Comment on above: IG% - Immature Granu locytes (promyelocytes, myelocytes and metamyelocytes) > 1% indicates that a LEFT SHIFT is Present. Ketones Test strip Ql (U)Ord ered By: Donald Waller on 04-03-2024 Ketones Ql (U) Negative Negative [facility] - Chemistry and C hemistry - challengeOrdered By: Donald aWller on 04-03-2024 AST [Catalytic activity/Vol] 20 U/L 15-37 [facility] Lymphocytes Auto (Unsp spec) [#/Vol]Ordered By: Donald Waller on 04-03-2024 Lymphocytes (Bld) [#/Vol] 2.63 10*3/uL 0.83-4.51 [facility] Lymphocytes/100 WBC Auto (Un sp spec)Ordered By: Donald Waller on 04-03-2024 Lymphocytes/100 WBC (Bld) 35.3 % 19-41 [facility] MCV (mean corpuscular volume ) determinationOrdered By: Donald Waller on 04-03-2024 MCV (RBC) [Entitic vol] 89.7 fL 81-99 [facility] Mean corpuscular hemoglobin (MCH) determinationOrdered By: Donald Waller on 04-03-2024 MCH (RBC) [Entitic mass] 29.3 pg 27.0-32.0 [facility] Mean corpuscular hemoglobin concentration (MCHC) determinationOrdered By: Donald Waller on 04-03-2024 MCHC (RBC) [Mass/Vol] 32.7 g/dL 32-36 [facility] Mean platelet volume determi nationOrdered By: Donald Waller on 04-03-2024 Platelet mean volume (Bld) [Entitic vol] 10.8 fL 6.2-12.0 [facility] Microscopic analysis of urin e for red blood cells (RBC)Ordered By: Donald Waller on 04-03-2024 Urine RBC 0 SEEN /hpf 0-5 [facility] Monocyte percentageOrdered B y: Donald Waller on 04-03-2024 Monocytes/100 WBC (Bld) 6.7 % 0-10 [facility] Mucus LM Ql (Urine sed)Order ed By: Donald Waller on 04-03-2024 Mucus Ql (Urine sed) RARE /hpf [facility] Neutrophil percentageOrdered By: Donald Waller on 04-03-2024 Neutrophils/100 WBC (Bld) 55.5 % 47-70 [facility] Nitrite Test strip Ql (U)Ord ered By: Donald Waller on 04-03-2024 Nitrite Ql (U) Negative Negative [facility] Nucleated red blood cell per centageOrdered By: Donald Waller on 04-03-2024 Nucleated RBC/100 WBC (Bld) [Ratio] 0 % 0-5 [facility] Platelet countOrdered By: Chantal Waller on 04-03-2024 Platelets (Bld) [#/Vol] 248 10*3/uL 150-450 [facility] Potassium measurementOrdered By: Donald Waller on 04-03-2024 Potassium [Moles/Vol] 3.8 mmol/L 3.5-5.1 [facility] Protein Test strip Ql (U)Ord ered By: Donald Waller on 04-03-2024 Protein Ql (U) Negative Negative [facility] RBC Auto (Bld) [#/Vol]Ordere d By: Donald Waller on 04-03-2024 RBC (Bld) [#/Vol] 4.37 10*6/uL 4.2-5.4 [facility] Serum anion gap measurementO rdered By: Donald Waller on 04-03-2024 Anion gap [Moles/Vol] 4 mmol/L Low 5-15 [facility] Serum globulin measurementOr dered By: Donald Waller on 04-03-2024 Globulin (S) [Mass/Vol] 3.4 g/dL 2.2-4.2 [facility] Serum or plasma alanine terrazas otransferase (ALT) measurementOrdered By: Donald Waller on 04-03-2024 ALT [Catalytic activity/Vol] 28 U/L 13-56 [facility] Serum or plasma albumin mika urement (mass/volume)Ordered By: Donald Waller on 04-03-2024 Albumin [Mass/Vol] 4.1 g/dL 3.2-5.0 [facility] Serum or plasma alkaline lebron sphatase measurementOrdered By: Donald Waller on 04-03-2024 ALP [Catalytic activity/Vol] 54 U/L 45-117 [facility] Serum or plasma calcium mika urement (mass/volume)Ordered By: Donald Waller on 04-03-2024 Calcium [Mass/Vol] 9.1 mg/dL 8.5-10.1 [facility] Serum or plasma creatinine m easurement (mass/volume)Ordered By: Donald Waller on 04-03-2024 Creatinine [Mass/Vol] 1.10 mg/dL High 0.55-1.02 [facility] Comment on above: The validity of the calculated GFR & GFRAA in patients over 70 years has not been determined. Clinical correlation is essential. Serum or plasma urea nitroge n measurement (mass/volume)Ordered By: Donald Waller on 04-03-2024 Urea nitrogen [Mass/Vol] 16 mg/dL 7-18 [facility] Sodium levelOrdered By: Donald Waller on 04-03-2024 Sodium [Moles/Vol] 140 mmol/L 136-145 [facility] Total proteinOrdered By: Carlos Waller on 04-03-2024 Protein [Mass/Vol] 7.5 g/dL 6.4-8.2 [facility] Urinalysis, Completeon 04-03 EPI,SQUAMOUS 0-5 SEEN Normal 5-10 [facility] Comment on above: Order Comment: Order Date: 04/03/24Order Info: [id number] - UACCOLLECTOR TO SPECIFY Performed By: #### L 100.0100, L3890.6102, L501.9985, L900.0098, BTS, L3890.6006, L3890.6301, L509.8002, L509.4006 #### [facility] [address] [place], [address] Mucus Ql (Urine sed) RARE Normal [facility] Comment on above: Order Comment: Order Date: 04/03/24Order Info: [id number] - UACCOLLECTOR TO SPECIFY Performed By: #### L 100.0100, L3890.6102, L501.9985, L900.0098, BTS, L3890.6006, L3890.6301, L509.8002, L509.4006 #### [facility] [address] [place], [address] BILIRUBIN URINE Negative Normal Negative [facility] Comment on above: Order Comment: Order Date: 04/03/24Order Info: [id number] - UACCOLLECTOR TO SPECIFY Performed By: #### L 100.0100, L3890.6102, L501.9985, L900.0098, BTS, L3890.6006, L3890.6301, L509.8002, L509.4006 #### [facility] [address] [place], [address] Clarity (U) Clear Normal Clear [facility] Comment on above: Order Comment: Order Date: 04/03/24Order Info: 93855-5 - UACCOLLECTOR TO SPECIFY Performed By: #### L 100.0100, L3890.6102, L501.9985, L900.0098, BTS, L3890.6006, L3890.6301, L509.8002, L509.4006 #### [facility] [address] [place], [place], [id number] (394) Color (U) Straw Normal Yellow [facility] Comment on above: Order Comment: Order Date: 04/03/24Order Info: 13703-7 - UACCOLLECTOR TO SPECIFY Performed By: #### L 100.0100, L3890.6102, L501.9985, L900.0098, BTS, L3890.6006, L3890.6301, L509.8002, L509.4006 #### [facility] [address] [place], [place], [id number] ([phone] GLUCOSE, UR Normal Normal Normal [facility] Comment on above: Order Comment: Order Date: 04/03/24Order Info: [id number] - UACCOLLECTOR TO SPECIFY Performed By: #### L 100.0100, L3890.6102, L501.9985, L900.0098, BTS, L3890.6006, L3890.6301, L509.8002, L509.4006 #### [facility] [address] [place], [address] KETONE UR Negative Normal Negative [facility] Comment on above: Order Comment: Order Date: 04/03/24Order Info: [id number] - UACCOLLECTOR TO SPECIFY Performed By: #### L 100.0100, L3890.6102, L501.9985, L900.0098, BTS, L3890.6006, L3890.6301, L509.8002, L509.4006 #### [facility] [address] [place], [place], [id number] (458) LEUK ESTERASE Negative Normal Negative [facility] Comment on above: Order Comment: Order Date: 04/03/24Order Info: [id number] - UACCOLLECTOR TO SPECIFY Performed By: #### L 100.0100, L3890.6102, L501.9985, L900.0098, BTS, L3890.6006, L3890.6301, L509.8002, L509.4006 #### [facility] [address] [place], [place], [address] [phone] Nitrite Ql (U) Negative Normal Negative [facility] Comment on above: Order Comment: Order Date: 04/03/24Order Info: [id number] - UACCOLLECTOR TO SPECIFY Performed By: #### L 100.0100, L3890.6102, L501.9985, L900.0098, BTS, L3890.6006, L3890.6301, L509.8002, L509.4006 #### [facility] [address] [place], [place], [address] OCCULT BLOOD-UR Negative Normal Negative [facility] Comment on above: Order Comment: Order Date: 04/03/24Order Info: [id number] - UACCOLLECTOR TO SPECIFY Performed By: #### L 100.0100, L3890.6102, L501.9985, L900.0098, BTS, L3890.6006, L3890.6301, L509.8002, L509.4006 #### [facility] [address] [place], [place], [phone] pH UR 7.0 Normal 5.0 - 8.0 [facility] Comment on above: Order Comment: Order Date: 04/03/24Order Info: [id number] - UACCOLLECTOR TO SPECIFY Performed By: #### L 100.0100, L3890.6102, L501.9985, L900.0098, BTS, L3890.6006, L3890.6301, L509.8002, L509.4006 #### [facility] [address] [place], [address] PROT DIPSTX Negative Normal Negative [facility] Comment on above: Order Comment: Order Date: 04/03/24Order Info: [id number] - UACCOLLECTOR TO SPECIFY Performed By: #### L 100.0100, L3890.6102, L501.9985, L900.0098, BTS, L3890.6006, L3890.6301, L509.8002, L509.4006 #### [facility] [address] [place], [address] SP.GR. DIPSTX 1.010 Normal 1.002-1.030 [facility] Comment on above: Order Comment: Order Date: 04/03/24Order Info: [id number] - UACCOLLECTOR TO SPECIFY Performed By: #### L 100.0100, L3890.6102, L501.9985, L900.0098, BTS, L3890.6006, L3890.6301, L509.8002, L509.4006 #### [facility] [address] [place], [address] UROBILI Normal Normal Normal [facility] Comment on above: Order Comment: Order Date: 04/03/24Order Info: [id number] - UACCOLLECTOR TO SPECIFY Performed By: #### L 100.0100, L3890.6102, L501.9985, L900.0098, BTS, L3890.6006, L3890.6301, L509.8002, L509.4006 #### [facility] [address] [place], [address] BACTERIA 0 SEEN Normal None Seen [facility] Comment on above: Order Comment: Order Date: 04/03/24Order Info: [id number] - UACCOLLECTOR TO SPECIFY Performed By: #### L 100.0100, L3890.6102, L501.9985, L900.0098, BTS, L3890.6006, L3890.6301, L509.8002, L509.4006 #### [facility] [address] [place], [place], [id number] ([id number]) RBC 0 SEEN Normal 0-5 [facility] Comment on above: Order Comment: Order Date: 04/03/24Order Info: [id number] - UACCOLLECTOR TO SPECIFY Performed By: #### L 100.0100, L3890.6102, L501.9985, L900.0098, BTS, L3890.6006, L3890.6301, L509.8002, L509.4006 #### [facility] [address] [place], [address] WBC 0 SEEN Normal 0-5 [facility] Comment on above: Order Comment: Order Date: 04/03/24Order Info: [id number] - UACCOLLECTOR TO SPECIFY Performed By: #### L 100.0100, L3890.6102, L501.9985, L900.0098, BTS, L3890.6006, L3890.6301, L509.8002, L509.4006 #### [facility] [address] [place], [place], [id number] Urine blood detectionOrdered By: Donald Waller on 04-03-2024 Urine Occult Blood Negative Negative [facility] Urine clarityOrdered By: Carlos Waller on 04-03-2024 Clarity (U) Clear Clear [facility] Urine color determinationOrd ered By: Donald Waller on 04-03-2024 Color (U) Straw Yellow [facility] Urine leukocyte esterase det ection by dipstickOrdered By: Donald Waller on 04-03-2024 Leukocyte esterase Test strip Ql (U) Negative Negative [facility] Urine pHOrdered By: Donald marie on 04-03-2024 pH (U) 7.0 [pH] 5.0 - 8.0 [facility] Urine sediment bacteria coun t by microscopy (number/high power field)Ordered By: Donald Waller on 04-03-2024 Bacteria LM.HPF (Urine sed) [#/Area] 0 /[HPF] None Seen [facility] Urine specific gravity measu rementOrdered By: Donald Waller on 04-03-2024 Specific gravity (U) [Rel density] 1.010 1.002-1.030 [facility] Urobilinogen Ql (U)Ordered B y: Donald Waller on 04-03-2024 Urine Urobilinogen Normal mg/dl Normal [facility] White blood cell (WBC) count Ordered By: Donald Waller on 04-03-2024 WBC (Bld) [#/Vol] 7.5 10*3/uL 4.4-11.0 [facility] White blood cell countOrdere d By: Donald Waller on 04-03-2024 Urine WBC 0 SEEN /hpf 0-5 [facility] MEASLES,MUMP,RUBELLAon 05-13 MUMPS ABS, IGG 53.6 AU/mL Normal Immune >10.9 [facility] Comment on above: Result Comment: (NOT E) Negative <9.0 Equivocal 9.0 - 10.9 Positive >10.9 A positive result generally indicates past exposure to Mumps virus or previous vaccination. PERFORMED AT [facility] Performed By: #### L MMR #### Testing performed at [address] [address] RUBEOLA AB, IGG 49.1 AU/mL Normal Immune >16.4 [facility] Comment on above: Result Comment: (NOT E) Negative <13.5 Equivocal 13.5 - 16.4 Positive >16.4 Presence of antibodies to Rubeola is presumptive evidence of immunity except when acute infection is suspected. Performed By: #### L MMR #### Testing performed at [address] [place] [address] RUBELLA AB, IGG 2.63 index Normal Immune >0.99 [facility] Comment on above: Result Comment: (NOT E) Non-immune <0.90 Equivocal 0.90 - 0.99 Immune >0.99 Performed By: #### L MMR #### Testing performed at [facility] [address] [place] [address] HEP B SURFACE ABon 0 HEP B SURFACE AB Negative Abnormal POSITIVE [facility] Comment on above: Result Comment: Clinical Interpretation of Immune Status Negative: patient is considered to be not immune to infection with HBV Intermediate: unable to determine if anti-HBs is present at levels consistent with immunity Positive: anti-HBs detected, patient is considered to be immune to infection with HBV Performed By: #### L MMR #### Testing performed at [facility] [address] [place], [place] [address] [place] [address] HEP C ABon 05-12-2019 HEP C AB Negative Normal NEGATIVE [facility] Comment on above: Performed By: #### L MMR #### Testing performed at [address] [address] FAX REQUESTon 05-11-2019 FAX TO [facility] Comment on above: Performed By: #### L MMR #### Testing performed at [address] [address] HSV by PCR Superficial Siteo n 11-27-2017 HSV by PCR Superficial Site Abnormal NEG [facility] Comment on above: Result Comment: Posi tiveFinal ReportHerpes Simplex virus (HSV) DNA WAS DETECTED by the polymerase chain reaction (PCR) method on this specimen. These results suggest that the patient is infected with HSV at the site tested.This test was developed and its performance characteristics determined by [facility]. It has not been cleared or approved by the U.S. Food and Drug Administration. The FDA has determined that such clearance or approval is not necessary. This test is used for clinical purposes. It should not be regarded as investigational or for research. Performed By: #### H SVTT2 ####[place] [address] HSV Type HERPES SIMPLEX VIRUS , TYPE 1 Normal [facility] Comment on above: Performed By: #### H SVTT2 ####Performed at [address] [address] HSV by PCR Superficial Siteo n 11-26-2017 Specimen Description Normal [facility] Comment on above: Result Comment: LipU PPERRight Performed By: #### H SVTT2 ####[place] [address] Virus Cultureon 11-25-2017 Virus Culture Specimen description : Lesion Lip UPPER Right Special requests: None Culture results: No Virus Isolated After 1 Day Report status: Pending Normal [facility] Comment on above: Performed By: #### V IRC ####[place] [address] XR Spine Lumbosacral 2 or 3 Viewson 11-20-2017 INR Coag RelTime (Bld) Exam Date/Time:11/19/2017 14:07 EDTReason for Exam:low back painReportSTUDY:XR Spine Lumbosacral 2 or 3 Views; 11/19/2017 2:07 pmINDICATION:low back pain.COMPARISON:None. [id number] CLINICIAN:Pa SchaeferFINDINGS:3 views of the lumbar spine including AP, [...] 9:20 amSigned by: Mp Ordaz MD Technologist: [facility] XR Spine Thoracic 3 Viewson 11-20-2017 INR Coag RelTime (Bld) Exam Date/Time:11/19/2017 14:07 EDTReason for Exam:mid back painReportSTUDY:XR Spine Thoracic 3 Views; 11/19/2017 2:07 pmINDICATION:mid back pain.COMPARISON:None. [id number] CLINICIAN:Pa SchaeferFINDINGS:3 views of the thoracic spine including AP, [...] by: Mp Ordaz MD Technologist: GLP Normal [facility] C trach/N anthony Amplified Prob yany 07-02-2017 C. trachomatis amp. Abnormal NODT Natio [facility] Comment on above: Result Comment: DETE CTEDIn [...] urine may result in reduced sensitivity. Normal [facility] N. gonorrhoeae amp. Not Detected Normal NODT [facility] Specimen Description Urine Normal Ver[facility] Chlamydia GC by PCRon 2016 Chlamydia by PCR. Not Detected Normal Not Detected [facility] Comment on above: Result Comment: Xper t CT/NG Assay performance has not been evaluated in patients less than 14 years of age. Performed By: #### 3 [id number] ####DANIEL Winters [employer] SubSection, Gonorrhoeae by PCR Not Detected Normal Not Detected [facility] Comment on above: Result Comment: Xper t CT/NG Assay performance has not been evaluated in patients less than 14 years of age. Performed By: #### 3 [id number] ####DANIEL Wintersc [employer] SubSection, Vital Signs Date Time Vital Sign Value Performing Clinician Buffy avila 10-27-2024 13:28-0400 Body height 172.[address] Donald Waller MD Work Phone: [facility] 10-27-2024 13:27-0400 Body mass index (BMI) [Ratio] 40.3 kg/m2 Dr. Donald Waller MD Work Phone: [facility] 10-27-2024 13:27-0400 Body weight 120.[address] Donald Waller MD Work Phone: 9(776)533-901868 [place] [address] 10-27-2024 13:27-0400 Diastolic blood pressure 87 mm[Hg] Dr. Donald Waller MD Work Phone: 2(198)066-494168 [place] [address] 10-27-2024 13:27-0400 Systolic blood pressure 133 mm[Hg] Dr. Donald Waller MD Work Phone: 1(764)137-166668 [place] [address] 09-28-2024 14:56-0400 Body height 172.[address] Donald Waller MD Work Phone: 2(911)709-835880 [place] [address] 09-28-2024 14:56-0400 Body mass index (BMI) [Ratio] 39.8 kg/m2 Dr. Donald Waller MD Work Phone: 7(291)025-509680 [place] [address] 09-28-2024 14:56-0400 Body weight 118.[address] Donald Waller MD Work Phone: 7(094)487-580568 [place] [address] 09-28-2024 14:56-0400 Diastolic blood pressure 76 mm[Hg] Dr. Donald Waller MD Work Phone: 4(172)283-723668 [place] [address] 09-28-2024 14:56-0400 Systolic blood pressure 122 mm[Hg] Dr. Donald Waller MD Work Phone: 5(582)823-100268 [place] [address] 09-28-2024 07:30-0400 Body height 172.[address] Donald Waller MD Work Phone: 9(950)221-324145 [address] 09-28-2024 07:30-0400 Body mass index (BMI) [Ratio] 40 kg/m2 Dr. Donald Waller MD Work Phone: 1(142)813-569368 [place] [address] 09-28-2024 07:30-0400 Body temperature 98.8 [degF] Dr. Donald Waller MD Work Phone: 1(138)188-598568 [place] [address] 09-28-2024 07:30-0400 Body weight 119.[address] Donald Waller MD Work Phone: 3(645)939-173680 [place] [address] 09-28-2024 07:30-0400 Diastolic blood pressure 80 mm[Hg] Dr. Donald Waller MD Work Phone: 7(642)843-001780 [place] [address] 09-28-2024 07:30-0400 Heart rate 90 /min Dr. Donald Waller MD Work Phone: 5(735)364-769180 [place] [address] 09-28-2024 07:30-0400 SaO2% (BldA) [Mass fraction] 99 % Dr. Donald Waller MD Work Phone: 8(386)576-472280 [place] [address] 09-28-2024 07:30-0400 Systolic blood pressure 120 mm[Hg] Dr. Donald Waller MD Work Phone: 7(579)167-752480 [place] [address] 09-01-2024 15:02-0400 Body mass index (BMI) [Ratio] 37.4 kg/m2 Dr. Donald Waller MD Work Phone: 7(219)611-083280 [place] [address] 09-01-2024 15:02-0400 Body weight 111.[address] Donald Waller MD Work Phone: 1(342)127-724580 [place] [address] 09-01-2024 15:02-0400 Diastolic blood pressure 81 mm[Hg] Dr. Donald Waller MD Work Phone: 8(565)749-491480 [place] [address] 09-01-2024 15:02-0400 Systolic blood pressure 125 mm[Hg] Dr. Donald Waller MD Work Phone: 5(376)760-996980 [place] [address] 08-04-2024 10:40-0400 Body height 172.[address] Donald Waller MD Work Phone: 5(002)223-507580 [place] [address] 08-04-2024 10:40-0400 Body mass index (BMI) [Ratio] 35.8 kg/m2 Dr. Donald Waller MD Work Phone: 1(519)742-860880 [place] [address] 08-04-2024 10:40-0400 Body weight 106.[address] Donald Waller MD Work Phone: 3(246)854-642680 [place] [address] 08-04-2024 10:40-0400 Diastolic blood pressure 82 mm[Hg] Dr. Donald Waller MD Work Phone: 2(907)250-622368 [place] [address] 08-04-2024 10:40-0400 Systolic blood pressure 124 mm[Hg] Dr. Donald Waller MD Work Phone: 4(237)601-792268 [place] [address] 07-07-2024 15:11-0400 Body height 172.[address] Donald Waller MD Work Phone: 2(550)044-832580 [place] [address] 07-07-2024 15:11-0400 Body mass index (BMI) [Ratio] 34.7 kg/m2 Dr. Donald Waller MD Work Phone: 4(156)316-484880 [place] [address] 07-07-2024 15:11-0400 Body weight 103.[address] Donald Waller MD Work Phone: 7(420)601-972480 [place] [address] 07-07-2024 15:11-0400 Diastolic blood pressure 84 mm[Hg] Dr. Donald Wallre MD Work Phone: 8(080)432-516068 [place] [address] 07-07-2024 15:11-0400 Systolic blood pressure 131 mm[Hg] Dr. Donald Waller MD Work Phone: 4(397)438-030680 [place] [address] 06-04-2024 13:01-0500 Body mass index (BMI) [Ratio] 34.4 kg/m2 Dr. Donald Waller MD Work Phone: 2(497)980-731480 [place] [address] 06-04-2024 13:01-0500 Body weight 102.[address] Donald Waller MD Work Phone: 3(787)611-284680 [place] [address] 06-04-2024 13:01-0500 Diastolic blood pressure 82 mm[Hg] Dr. Donald Waller MD Work Phone: 0(051)742-704680 [place] [address] 06-04-2024 13:01-0500 Systolic blood pressure 128 mm[Hg] Dr. Donald Waller MD Work Phone: 2(995)635-775580 [place] [address] 04-15-2024 11:31-0500 Body mass index (BMI) [Ratio] 32.8 kg/m2 Dr. Donald Waller MD Work Phone: 7(125)471-265068 [place] [address] 04-15-2024 11:31-0500 Body weight 97.[address] Donald Waller MD Work Phone: [facility] 04-15-2024 11:31-0500 Diastolic blood pressure 71 mm[Hg] Dr. Donald Wlaler MD Work Phone: [facility] 04-15-2024 11:31-0500 Systolic blood pressure 128 mm[Hg] Dr. Donald Waller MD Work Phone: [facility] Encounters Encounter Date Encounter Type Care Provider Facility Start: 10-27-2024 End: 10-27-2024 ambulatory Donald [facility] Start: 10-27-2024 End: 10-27-2024 Patient encounter procedure Jennifer AGARWAL -[facility] Work Phone: Start: 10-10-2024 End: 10-10-[address] Donald Waller MD Work Phone: [facility] Work Phone: Start: 10-10-2024 End: 10-10-[address] Donald Waller MD -Laboratory Specimen Work Phone: Start: 10-10-2024 End: 10-10-2024 ambulatory Donald Waller Facility:[facility] Start: 09-28-2024 End: 09-28-2024 Patient encounter procedure Jennifer AGARWAL -[facility] Work Phone: Start: 09-28-2024 End: 09-28-[address] Donald Waller MD Work Phone: [facility] Work Phone: Start: 09-28-2024 End: 09-28-2024 Patient encounter procedure Dinh [place] -[facility] Work Phone: Start: 09-28-2024 End: 09-28-[address] Donald Waller MD Work Phone: [facility] Work Phone: Start: 09-01-2024 End: 09-01-[address] Susan Chavez DO -[facility] Work Phone: Start: 09-01-2024 End: 09-01-2024 ambulatory Susan Chavez Facility:[facility] Start: 08-19-2024 End: 08-19-[address] Nita Mcintosh MD -Ultrasound [facility] Work Phone: Start: 08-19-2024 End: 08-19-2024 ambulatory Donald Waller Facility:[facility] Start: 08-04-2024 End: 08-04-2024 Patient encounter procedure Jennifer Willard VOCATIONAL TRAINING DIRECTOR-C -[facility] Work Phone: Start: 08-04-2024 End: 08-04-[address] Donald Waller MD Work Phone: [facility] Work Phone: Start: 08-04-2024 End: 08-04-2024 ambulatory Jennifer Willrad Facility:[facility] Start: 07-07-2024 End: 07-07-[address] Donald Waller MD Work Phone: [facility] Work Phone: Start: 07-07-2024 End: 07-07-[address] Nita Mcintosh MD -Lab, [facility] Start: 07-07-2024 End: 07-07-[address] Nita Mcintosh MD -[facility] Work Phone: Start: 07-07-2024 End: 07-07-2024 ambulatory Donald Waller Facility:[facility] Start: 07-07-2024 End: 07-07-2024 ambulatory Donald Waller Facility:[facility] Start: 06-04-2024 End: 06-04-2024 Patient encounter procedure Susie Solomon CNM -Laboratory, Specimen Work Phone: Start: 06-04-2024 End: 06-04-2024 Patient encounter procedure Susie Solomon CNM -[facility] Work Phone: Start: 06-04-2024 End: 06-04-2024 ambulatory Donald Waller Facility:[facility] Start: 06-04-2024 End: 06-04-2024 ambulatory Donald Waller Facility:[facility] Start: 04-15-2024 End: 04-15-[address] Donald Waller MD -Ultrasound, [facility] Work Phone: Start: 04-15-2024 End: 04-15-2024 Patient encounter procedure Magda AGARWAL -[facility] Work Phone: Start: 04-15-2024 End: 04-15-2024 Patient encounter status Magda AGARWAL [facility] Start: 04-15-2024 End: 04-15-2024 ambulatory Donald Waller Facility:[facility] Start: 04-15-2024 End: 04-15-2024 ambulatory Donald Waller Facility:[facility] Start: 04-10-2024 End: 04-10-[address] Donald Waller MD -Laboratory, Specimen Work Phone: Start: 04-10-2024 End: 04-10-2024 ambulatory [facility] Toya Waller Facility:[facility] Start: 04-03-2024 End: 04-03-[address] Donald Waller MD -Laboratory, [facility] Start: 04-03-2024 End: 04-03-2024 ambulatory Donald Waller Facility:[facility] Start: 11-26-2017 Patient encounter ELENI VIDAL [facility] Start: 11-19-2017 End: 11-20-2017 Patient encounter [facility] Facility:[facility] Start: 11-19-2017 Patient encounter Facil [id number] Start: 11-05-2017 Ambulatory Pa Lashon [facility] Facility :[place] Start: 07-02-2017 End: 07-02-2017 Patient encounter PA SCHAEFER [facility] Start: 12-21-2016 End: 12-22-2016 Patient encounter Pa Schaefer Facility:[facility] Procedures Date Procedure Procedure Detail Performing Clinician [...] HCV Quant by PCR testing - HCVPCR #[id number] Non Reactive: < 0.8 Equivocal: >/= 0.8 [...] of Treatment Date Care Activity Detail Author Start: 10-27-2024 Comprehensive metabo lic 2000 panel - Serum or Plasma [facility] Start: 10-27-2024 CBC W Auto Different ial panel - Blood [facility] Start: 10-27-2024 Serologic test for syphilis [facility] Start: 10-27-2024 [facility] Alanine aminotransfe rase [Enzymatic activity/volume] in Serum or Plasma [facility] Albumin [Mass/volume ] in Serum or Plasma [facility] Alkaline phosphatase [Enzymatic activity/volume] in Serum or Plasma [facility] Anion gap in Serum or Plasma [facility] Bilirubin, total measurement [facility] BUN/Creatinine ratio [facility] Calcium [Mass/volume ] in Serum or Plasma [facility] Carbon dioxide, tota l [Moles/volume] in Central venous blood [facility] CBC W Auto Different ial panel - Blood [facility] Creatinine [Mass/vol ume] in Serum or Plasma [facility] Erythrocyte mean cor puscular volume determination [facility] anatomy study [facility] Glucose [Mass/volume ] in Serum or Plasma [facility] Hematocrit [Volume F raction] of Blood [facility] Hemoglobin [Mass/volume] in Blood [facility] Leukocytes [#/volume] in Blood [facility] Mean corpuscular hem oglobin concentration determination [facility] Mean corpuscular hem oglobin determination [facility] Measurement of gluco se 2 hours after glucose challenge for glucose tolerance test [facility] Measurement of renal function [facility] Neutrophil count [facility] Neutrophil percent d ifferential count [facility] Platelets [#/volume] in Blood [facility] Potassium measurement [facility] Protein/Creatinine [ Ratio] in Urine [facility] Red blood cell count [facility] Red cell distributio n width determination [facility] Serologic test for syphilis [facility] Serum chloride measurement [facility] Sodium measurement [facility] Total protein measurement [facility] Urea nitrogen [Mass/ volume] in Serum or Plasma [facility] Immunizations Immunization Date Immunization Notes Care Provider Fa [facility] 10-27-2024 tetanus toxoid, redu ketan diphtheria toxoid, and acellular pertussis vaccine, adsorbed Dr. Donald Waller MD Work Phone: [facility] 11-29-2016 meningococcal B vacc ine, fully recombinant Dr. Donald Waller MD Work Phone: [facility] 11-29-2015 meningococcal B vacc ine, fully recombinant Dr. Donald Waller MD Work Phone: [facility] 11-29-2015 meningococcal polysaccharide (groups A, C, Y and W-135) diphtheria toxoid conjugate vaccine (MCV4P) Dr. Donald Waller MD Work Phone: [facility] 11-02-2010 meningococcal polysaccharide (groups A, C, Y and W-135) diphtheria toxoid conjugate vaccine (MCV4P) Dr. Donald Waller MD Work Phone: [facility] 08-05-[address] Donald Waller MD Work Phone: [facility] 12-29-2003 measles, mumps and rubella virus vaccine Dr. Donald Waller MD Work Phone: [facility] 10-01-[address] Donald Waller MD Work Phone: [facility] 06-27-2000 measles, mumps and rubella virus vaccine Dr. Donald Waller MD Work Phone: [facility] Payers Date Payer Category Payer Self-pay 2024 Unknown [id number] 2017 Unknown [id number] 2016 Unknown Unknown [id number] 2.16. [id number] Unknown [id number] Unknown [id number] Unknown [id number] 2.16.8 [id number] Unknown [id number] 2.16.8 [id number] Unknown [id number] 2.16.8 [id number] Unknown [id number] 2.16.8 [id number] Unknown [id number] 2.16.8 [id number] Unknown [id number] 2.16.8 [id number] Unknown [id number] 2.16.8 [id number] Unknown [id number] 2.16.8 [id number] Unknown [id number] 2.16.8 [id number] Unknown [id number] 2.16.8 [id number] Unknown [id number] 2.16.8 [id number] Unknown [id number] 2.16.8 [id number] Unknown [id number] 2.16.8 [id number] Social History Date Type Detail Facility Start[facility] Start: 07-17-2024 End: 08-06-2024 Sex Female (finding) [facility] Start: 2000 Sex Assigned At Female W [facility] Evaluation note 07-07-2024 Note Date & Type Note Facility 07-07-2024 Evaluation note Diagnosis Onset Date Resolution Anxiety acute July 07 2:50pm Current every day nicotine vaping acute July 07, 2024 2:50pm FH: hemophilia acute June 2:50pm Obesity affecting acute July 07, 2024 2:50pm acute July 07 2:50pm Recurrent UTI acute July 07, 2024 2:50pm Supervision of normal first acute July 07, 2024 2:50pm Anxiety acute August 04 10:37am Congenital yevula-bjxlydl-sjtpp reflux acute August 04, 2024 10:37am Current [...] Anxiety acute September 01, 2024 2:50pm Congenital bddlis-cryjpku-scbgp reflux acute September 01, 2024 2: 50pm Current every day nicotine vaping acute September 01, 2024 2: 50pm Elevated serum creatinine acute September 01, 2024 2: 50pm FH: hemophilia acute September 01, 2 025 2:50pm Obesity affecting acute September 01, 2024 2: 50pm acute September 01, 2024 2:50pm Supervision of normal first acute September 01, 2024 2: 50pm Anxiety acute September 28, 2024 2:50pm Congenital dwphzc-mbsusie-vnvds reflux acute September 28, 2024 2 :50pm Current every day nicotine vaping acute September 28, 2024 2 :50pm Elevated serum creatinine acute September 28, 2024 2 :50pm FH: hemophilia acute September 28, 2024 2:50pm Kidney disease acute September 28, 2024 2:50pm Obesity affecting acute September 28, 2024 2 :50pm acute September 28, 2024 2:50pm Recurrent UTI acute September 28, 2 025 2:50pm Supervision of normal first acute September 28, 2024 2 :50pm [facility] Work Phone: Evaluation note 07-07-2024 Note Date & Type Note Facility 07-07-2024 Evaluation note Diagnosis Onset Date Resolution Anxiety acute July 07 2:50pm Current every day nicotine vaping acute July 07, 2024 2:50pm FH: hemophilia acute June 2:50pm Obesity affecting acute July 07, 2024 2:50pm acute July 07 2:50pm Recurrent UTI acute July 07, 2024 2:50pm Supervision of normal first acute July 07, 2024 2:50pm Anxiety acute August 04 10:37am Congenital nnigch-wqbzdio-bjqbm reflux acute August 04, 2024 10:37am Current [...] Anxiety acute September 01, 2024 2:50pm Congenital noneqd-zqsgsrm-arwcc reflux acute September 01, 2024 2: 50pm Current every day nicotine vaping acute September 01, 2024 2: 50pm Elevated serum creatinine acute September 01, 2024 2: 50pm FH: hemophilia acute September 01, 025 2:50pm Obesity affecting acute September 01, 2024 2: 50pm acute September 01, 2024 2:50pm Supervision of normal first acute September 01, 2024 2: 50pm Anxiety acute September 28, 2024 2:50pm Congenital ctdheu-efaaudx-hgoor reflux acute September 28, 2024 2 :50pm Current every day nicotine vaping acute September 28, 2024 2 :50pm Elevated serum creatinine acute September 28, 2024 2 :50pm FH: hemophilia acute September 28, 2024 2:50pm Kidney disease acute September 28, 2024 2:50pm Obesity affecting acute September 28, 2024 2 :50pm acute September 28, 2024 2:50pm Recurrent UTI acute September 28, 2 025 2:50pm Supervision of normal first acute September 28, 2024 2 :50pm Anxiety acute October 27, 2024 1:38pm Congenital nvjeat-smstatj-hpwve reflux acute October 27, 2024 1 :38pm Current every day nicotine vaping acute October 27, 2024 1 :38pm Elevated serum creatinine acute October 27, 2024 1 :38pm FH: hemophilia acute October 27, 2024 1:38pm Kidney disease acute October 27, 2024 1:38pm Obesity affecting acute October 27, 2024 1 :38pm acute October 27, 2024 1:38pm Recurrent UTI acute October 27, 025 1:38pm Supervision of normal first acute October 27, 2024 1 :38pm [facility] Work Phone: Evaluation note 06-04-2024 Note [...] 2:50pm Anxiety acute August 04 10:37am Congenital dunhur-pknakxy-dwypa reflux acute August 04, 2024 10:37am Current [...] Anxiety acute September 01, 2024 2:50pm Congenital ppiatx-exmnjny-rcuyd reflux acute September 01, 2024 2: 50pm Current every day nicotine vaping acute September 01, 2024 2: 50pm Elevated serum creatinine acute September 01, 2024 2: 50pm FH: hemophilia acute September 01, 2 2:50pm Obesity affecting acute September 01, 2024 2: 50pm acute September 01, 2024 2:50pm Supervision of normal first acute September 01, 2024 2: 50pm [facility] Work Phone: Evaluation note 06-04-2024 Note [...] 2:50pm Anxiety acute August 04 10:37am Congenital plcpbq-qznxiht-wkyst reflux acute August 04, 2024 10:37am Current [...] Anxiety acute September 01, 2024 2:50pm Congenital jkgbdn-nebhsgu-hhkfy reflux acute September 01, 2024 2: 50pm [...] Anxiety acute September 28, 2024 2:50pm Congenital rnivwp-zkazoqb-hgunw reflux acute September 28, 2024 2 :50pm Current every day nicotine vaping acute September 28, 2024 2 :50pm Elevated serum creatinine acute September 28, 2024 2 :50pm FH: hemophilia acute September 28, 2024 2:50pm Kidney disease acute September 28, 2024 2:50pm Obesity affecting acute September 28, 2024 2 :50pm acute September 28, 2024 2:50pm Recurrent UTI acute September 28 2:50pm Supervision of normal first acute September 28, 2024 2 :50pm [facility] Work Phone: Clinical Note 04-15-2024 Note Date & Type Note Facility 04-15-2024 Note [facility] Pap Smear Specimen Adequacy April 16, 2024 12:59am Comment . Satisfactory for evaluation. No endocervical component is identified. Comment on above: Satisfactory for johny luation. No endocervical component is identified. Clinical Note 04-15-2024 Note Date & Type Note Facility 04-15-2024 Note [facility] Pap Smear Specimen Adequacy April 16, [...] normal first acute July 07, 2024 2:50pm [facility] Work Phone: Evaluation note 04-15-2024 Note [...] 2:50pm Anxiety acute August 04 10:37am Congenital pmnioh-rovnxkq-rowbj reflux acute August 04, 2024 10:37am Current every day nicotine vaping acute August 04, 2024 10:37am Elevated serum creatinine acute August 04, 2024 10:37am FH: hemophilia acute August 04, 2024 10:37am Obesity affecting acute August 04, 2024 10:37am acute August 04 10:37am Recurrent UTI acute August 04, 2024 10:37am Supervision of normal first acute August 04, 2024 10:37am [facility] Work Phone: Reason for referral (narrative) Note Date & Type Note Facility Reason for referral (narrative) No reason for referral information available [facility] Work Phone: Summary Purpose Family History Relationship Condition Age at Onset Recorded Date/T [...] for Visit Chief Complaint Admit Date 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) April 15, 2024 11:20am UTI April 15, [...] 1 2:53pm Supervision of normal first [facility] 2024 12:53pm Anxiety July 07, 2024 2:5 0pm Current every day nicotine vaping July 07, 2024 2:50pm FH: hemophilia July 07, 2024 2:5 0pm Obesity affecting July 07, 2024 2:50pm July 07, 2024 2:5 0pm Recurrent UTI July 07, 2024 2:5 0pm Supervision of normal first [facility] 2024 2:50pm Chief Complaint Admit Date 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) April 15, 2024 11:20am UTI April 15, [...] 1 2:53pm Supervision of normal first Fe [facility] 2024 12:53pm Anxiety July 07, 2024 2:5 0pm Current every day nicotine vaping July 07, 2024 2:50pm FH: hemophilia July 07, 2024 2:5 0pm Obesity affecting July 07, 2024 2:50pm July 07, 2024 2:5 0pm Recurrent UTI July 07, 2024 2:5 0pm Supervision of normal first Ma [facility] 2024 2:50pm Anxiety August 04, 2024 10:3 7am Congenital yxpgpt-ickdrcj-tidye reflux A pril 2024 10:37am Current every day nicotine vaping August 04, 2024 10:37am Elevated serum creatinine August 04 10:37am FH: hemophilia August 04, 2024 10:3 7am Obesity affecting August 04, 025 10:37am August 04, 2024 10:3 7am Recurrent UTI August 04, 2024 10:3 7am Supervision of normal first Ap ril 2024 10:37am Chief Complaint Admit Date 9WK [...] 1 2:53pm Current every day nicotine vaping Februa 2024 12:53pm FH: hemophilia June 04, 2024 [...] 2:5 0pm Supervision of normal first Ma [facility] 2024 2:50pm Anxiety August 04, 2024 10:3 7am Congenital jihbne-dxdrmom-bkgim reflux A pril 2024 10:37am Current every day nicotine vaping August 04, 2024 10:37am Elevated serum creatinine August 04 10:37am FH: hemophilia August 04, 2024 10:3 7am Obesity affecting August 04, 2 025 10:37am August 04, 2024 10:3 7am Recurrent UTI August 04, 2024 10:3 7am Supervision of normal first Ap ril 2024 10:37am Anxiety September 01, 2024 2:50pm Congenital aqdhig-vqjmipa-crdyh reflux M ay 2024 2:50pm Current every [...] 1 2:53pm Current every day nicotine vaping Februa 2024 12:53pm FH: hemophilia June 04, 2024 [...] 2:5 0pm Supervision of normal first Ma [facility] 2024 2:50pm Anxiety August 04, 2024 10:3 7am Congenital tsxzve-lfryuiq-hqyrr reflux A pril 2024 10:37am Current every day nicotine vaping August 04, 2024 10:37am Elevated serum creatinine August 04 10:37am FH: hemophilia August 04, 2024 10:3 7am Obesity affecting August 04, 2 025 10:37am August 04, 2024 10:3 7am Recurrent UTI August 04, 2024 10:3 7am Supervision of normal first Ap ril 2024 10:37am Anxiety September 01, 2024 2:50pm Congenital zswflj-actywli-mqldz reflux M ay 2024 2:50pm Current every day nicotine vaping August 2:50pm Elevated serum creatinine September 01, 2024 2:50pm FH: hemophilia September 01, 2024 2:50pm Obesity affecting September 01 2:50pm September 01, 2024 2:50pm Supervision of normal first Ma y 2024 2:50pm Anxiety September 28, 2024 2:50p m Congenital sifyva-negxikq-pnmqx reflux J une 2024 2:50pm Current every day nicotine vaping September [id number] 2:50pm Elevated serum creatinine September 28, 2024 2:50pm FH: hemophilia September 28, 2024 2:50p m Kidney disease September 28, 2024 2:50p m Obesity affecting September 28 2:50pm September 28, 2024 2:50p m Recurrent UTI September 28, 2024 2:50p m Supervision of normal first Ju ne 2024 2:50pm Chief Complaint Admit Date 13wk OB July 07, 2024 2:5 0pm 18 wk ob August 04, 2024 10:3 7am ANATOMY SCAN August 19, 2024 3:1 5pm 22 wk ob September 01, 2024 2:50pm congestion, cough, sore throat September 28, 2024 7:26am 26wk ob September 28, 2024 2:50p m Reason for Visit Admit Date Anxiety July 07, 2024 2:5 0pm Current every day nicotine vaping July 07, 2024 2:50pm FH: hemophilia July 07, 2024 2:5 0pm Obesity affecting July 07, 2024 2:50pm July 07, 2024 2:5 0pm Recurrent UTI July 07, 2024 2:5 0pm Supervision of normal first Ma [facility] 2024 2:50pm Anxiety August 04, 2024 10:3 7am Congenital jtplpq-ohydldx-lmznn reflux A pril 2024 10:37am Current every day nicotine vaping August 04, 2024 10:37am Elevated serum creatinine August 04 10:37am FH: hemophilia August 04, 2024 10:3 7am Obesity affecting August 04, 2 025 10:37am August 04, 2024 10:3 7am Recurrent UTI August 04, 2024 10:3 7am Supervision of normal first Ap ril 2024 10:37am Anxiety September 01, 2024 2:50pm Congenital zzwkur-jougutd-omkcz reflux M ay 2024 2:50pm Current every day nicotine vaping August 2:50pm Elevated serum creatinine September 01, 2024 2:50pm FH: hemophilia September 01, 2024 2:50pm Obesity affecting September 01 2:50pm September 01, 2024 2:50pm Supervision of normal first Ma y 2024 2:50pm Anxiety September 28, 2024 2:50p m Congenital hxankn-xnxmkcs-xazyi reflux J une 2024 2:50pm Current every day nicotine vaping September [id number] 2:50pm Elevated serum creatinine September 28, 2024 2:50pm FH: hemophilia September 28, 2024 2:50p m Kidney disease September 28, 2024 2:50p m Obesity affecting September 28 2:50pm September 28, 2024 2:50p m Recurrent UTI September 28, 2024 2:50p m Supervision of normal first Ju ne 2024 2:50pm Chief Complaint Admit Date 13wk OB July 07, 2024 2:5 0pm 18 wk ob August 04, 2024 10:3 7am ANATOMY SCAN August 19, 2024 3:1 5pm 22 wk ob September 01, 2024 2:50pm congestion, cough, sore throat September 28, 2024 7:26am 26wk ob September 28, 2024 2:50p m 30wk ob October 27, 2024 1:38p m Reason for Visit Admit Date Anxiety July 07, 2024 2:5 0pm Current every day nicotine vaping July 07, 2024 2:50pm FH: hemophilia July 07, 2024 2:5 0pm Obesity affecting July 07, 2024 2:50pm July 07, 2024 2:5 0pm Recurrent UTI July 07, 2024 2:5 0pm Supervision of normal first Ma [facility] 2024 2:50pm Anxiety August 04, 2024 10:3 7am Congenital xgiygq-pymqnne-ndhdu reflux A pril 2024 10:37am Current every day nicotine vaping August 04, 2024 10:37am Elevated serum creatinine August 04 10:37am FH: hemophilia August 04, 2024 10:3 7am Obesity affecting August 04, 2 025 10:37am August 04, 2024 10:3 7am Recurrent UTI August 04, 2024 10:3 7am Supervision of normal first Ap ril 2024 10:37am Anxiety September 01, 2024 2:50pm Congenital ywualy-bambfeq-jagml reflux M ay 2024 2:50pm Current every day nicotine vaping August 2:50pm Elevated serum creatinine September 01, 2024 2:50pm FH: hemophilia September 01, 2024 2:50pm Obesity affecting September 01 2:50pm September 01, 2024 2:50pm Supervision of normal first Ma y 2024 2:50pm Anxiety September 28, 2024 2:50p m Congenital xrpzln-vjcnors-ammgk reflux J une 2024 2:50pm Current every day nicotine vaping September 282024 2:50pm Elevated serum creatinine September 28, 2024 2:50pm FH: hemophilia September 28, 2024 2:50p m Kidney disease Felisha 2nd, 2025 2:50p m Obesity affecting September 28 2:50pm September 28, 2024 2:50p m Recurrent UTI September 28, 2024 2:50p m Supervision of normal first Ju ne 2024 2:50pm Anxiety October 27, 2024 1:38p m Congenital wvaozt-rafusnv-cosdg reflux J gary 2024 1:38pm Current every day nicotine vaping October 272024 1:38pm Elevated serum creatinine October 27, 2024 1:38pm FH: hemophilia October 27, 2024 1:38p m Kidney disease October 27, 2024 1:38p m Obesity affecting October 27 1:38pm October 27, 2024 1:38p m Recurrent UTI October 27, 2024 1:38p m Supervision of normal first Ju ly 2024 1:38pm Additional Source Comments INFORMATION SOURCE (unrecogn ized section and content) DATE CREATED AUTHOR 11/06/2017 [facility] DATE CREATED AUTHOR AUTHOR'S ORGANIZ ATION 11/20/2017 [facility] DATE CREATED AUTHOR AUTHOR'S ORGANIZ ATION 11/27/2017 [facility] DATE CREATED AUTHOR AUTHOR'S ORGANIZ ATION 12/20/2017 [facility] DATE CREATED AUTHOR AUTHOR'S ORGANIZ ATION 05/13/2019 [facility] DATE CREATED AUTHOR AUTHOR'S ORGANIZ ATION [facility] Teams (unrecognized sec tion and [...] 2024 End: August 04, 2024 Jennifer Willard VOCATIONAL TRAINING DIRECTOR, VOCATIONAL TRAINING DIRECTOR-C Attending Provider Active Start: August 04, 2024 End: August 04, 2024 Team Status: Inactive Member Role Status Dates Dr. Donald Waller MD Primary Care Provider Active Start: August 04, 2024 End: August 04, 2024 Jennifer Willard VOCATIONAL TRAINING DIRECTOR, VOCATIONAL TRAINING DIRECTOR-C Attending Provider Active Start: August 04, 2024 End: August 04, 2024 Jennifer Willard VOCATIONAL TRAINING DIRECTOR, VOCATIONAL TRAINING DIRECTOR-C Referring Provider Active Start: August 04, 2024 [...] 2024 End: September 28, 2024 Jennifer Willard VOCATIONAL TRAINING DIRECTOR, VOCATIONAL TRAINING DIRECTOR-C Attending Provider Active Start: September 28, 2024 End: September 28, 2024 Team Status: Inactive Member Role Status Dates Dr. Donald Waller MD Primary Care Provider Active Start: October 10, 2024 End: October 10, 2024 Dr. Doanld Waller MD Attending Provider Active Start: October 10, 2024 End: October 10, 2024 Team Status: Active Member Role/Relationship Status Dates Dr. Donald Waller MD Primary Care Provider Active Team Status: Inactive Member Role/Relationship Status Dates Dr. Donald Waller MD Primary Care Provider Active Start: July 07, 2024 End: July 07, 2024 Dr. Donald Waller MD Referring Provider Active Start: July 07, 2024 End: July 07, 2024 Dr. Nita Mcintosh MD Attending Provider Active Start: July 07, 2024 End: July 07, 2024 Team Status: Inactive Member Role/Relationship Status Dates Dr. Donald Waller MD Primary Care Provider Active Start: July 07, 2024 End: July 07, 2024 Dr. Nita Mcintosh MD Attending Provider Active Start: July 07, 2024 End: July 07, 2024 Dr. Nita Mcintosh MD Referring Provider Active Start: July 07, 2024 End: July 07, 2024 Team Status: Inactive Member Role/Relationship Status Dates Dr. Donald Waller MD Primary Care Provider Active Start: August 04, 2024 End: August 04, 2024 Dr. Donald Waller MD Referring Provider Active Start: August 04, 2024 End: August 04, 2024 Jennifer Willard VOCATIONAL TRAINING DIRECTOR, VOCATIONAL TRAINING DIRECTOR-C Attending Provider Active Start: August 04, 2024 End: August 04, 2024 Team Status: Inactive Member Role/Relationship Status Dates Dr. Donald Waller MD Primary Care Provider Active Start: August 04, 2024 End: August 04, 2024 Jennifer Willard VOCATIONAL TRAINING DIRECTOR, VOCATIONAL TRAINING DIRECTOR-C Attending Provider Active Start: August 04, 2024 End: August 04, 2024 Jennifer Willard VOCATIONAL TRAINING DIRECTOR, VOCATIONAL TRAINING DIRECTOR-C Referring Provider Active Start: August 04, 2024 End: August 04, 2024 Team Status: Inactive Member Role/Relationship Status Dates Dr. Donald Waller MD Primary Care Provider Active Start: August 19, 2024 End: August 19, 2024 Dr. Nita Mcintosh MD Attending Provider Active Start: August 19, 2024 End: August 19, 2024 Dr. Nita Mcintosh MD Referring Provider Active Start: August 19, 2024 End: August 19, 2024 Team Status: Inactive Member Role/Relationship Status Dates Dr. Donald Waller MD Primary Care Provider Active Start: September 01, 2024 End: September 01, 2024 Dr. Donald Waller MD Referring Provider Active Start: September 01, 2024 End: September 01, 2024 Dr. Susan Chavez DO Attending Provider Activ e Start: September 01, 2024 End: September 01, 2024 Team Status: Inactive Member Role/Relationship Status Dates Dr. Donald Wallre MD Primary Care Provider Active Start: September 28, 2024 End: September 28, 2024 Dr. Donald Waller MD Referring Provider Active Start: September 28, 2024 End: September 28, 2024 Dinh Lorenzana PA, PA Attending Provider Active Start: September 28, 2024 End: September 28, 2024 Team Status: Inactive Member Role/Relationship Status Dates Dr. Donald Waller MD Primary Care Provider Active Start: September 28, 2024 End: September 28, 2024 Dr. Donald Waller MD Referring Provider Active Start: September 28, 2024 End: September 28, 2024 Jennifer Willard VOCATIONAL TRAINING DIRECTOR, VOCATIONAL TRAINING DIRECTOR-C Attending Provider Active Start: September 28, 2024 End: September 28, 2024 Team Status: Inactive Member Role/Relationship Status Dates Dr. Donald Waller MD Primary Care Provider Active Start: October 10, 2024 End: October 10, 2024 Dr. Donald Waller MD Attending Provider Active Start: October 10, 2024 End: October 10, 2024 Team Status: Inactive Member Role/Relationship Status Dates Dr. Donald Waller MD Primary Care Provider Active Start: October 27, 2024 End: October 27, 2024 Dr. Donald Waller MD Referring Provider Active Start: October 27, 2024 End: October 27, 2024 Jennifer Willard NP VOCATIONAL TRAINING DIRECTOR-C Attending Provider Active Start: October 27, 2024 End: October 27, 2024 Team Status: Active Member Role/Relationship Status Dates Dr. Donald Waller MD Primary Care Provider Active Start: October 27, 2024 Jennifer Willard NP VOCATIONAL TRAINING DIRECTOR-C Attending Provider Active Start: October 27, 2024 Jennifer Willard NP VOCATIONAL TRAINING DIRECTOR-C Referring Provider Active Start: October 27, 2024 Goals (unrecognized section and content) Goals [...] BE BASED ON THE PRIMARY CLINICAL RECORDS. [facility] [employer] provides no warranty or guarantee of the accuracy or completeness of information in this document.
== END | disposition home or self-care (01) ==
LOC: BWCLAB 13:47
PROVIDERS: Obstetrics & Gynecology; PCP Family Medicine; Referring Provider Nurse Practitioner Women's Health; Visit Provider Nurse Practitioner Women's Health
DX: Z34.02 Encounter for supervision of normal first pregnancy, second trimester (principal); R79.89 Other specified abnormal findings of blood chemistry
CPT/HCPCS: 36415; 80053; 82570; 84156; 85025; 86703; 86780

== ENCOUNTER → 2024-11-19 | Outpatient (CLI) | payer OTHER, SELFPAY ==
[2024-11-19 09:09] LABS: Hematocrit 37.2 % (37-47); Hemoglobin 12.5 g/dL (12.0-15.0); Immature Granulocytes Count 0.800 X10^3/uL (0.0-0.0); Mean Corp Hgb Conc 33.6 g/dL (32-36); Mean Corpuscular Volume 88.8 fL (81-99); Mean Platelet Vol. 11.0 fl (6.2-12.0); NRBC Flagged by Analyzer 0 % (0-5); Platelet Count 192 K/mm3 (150-450); RBC Distribution Width CV 13.2 % (11.6-14.6); RBC Distribution Width SD 42.8 fl (35.1-43.9); Red Blood Count 4.19 M/mm3 (4.2-5.4); White Blood Count 16.3 K/mm3 (4.4-11.0)
== END | disposition home or self-care (01) ==
LOC: BWCLAB 08:54
PROVIDERS: PCP Family Medicine; Referring Provider Obstetrics & Gynecology; Visit Provider Obstetrics & Gynecology
DX: Z34.03 Encounter for supervision of normal first pregnancy, third trimester (principal); R30.0 Dysuria
CPT/HCPCS: 36415; 85025; 87086; 87088

== ENCOUNTER → 2024-12-17 | Outpatient (CLI) | payer OTHER, SELFPAY | END | disposition home or self-care (01) | LOC: LABSPEC 16:28 | PROVIDERS: PCP Family Medicine; Referring Provider Obstetrics & Gynecology; Visit Provider Obstetrics & Gynecology | DX: Z34.03 Encounter for supervision of normal first pregnancy, third trimester (principal) | CPT/HCPCS: 87081 ==

== ENCOUNTER 2025-01-06 06:56 | Inpatient (IN) | payer OTHER, SELFPAY ==
[2025-01-06] VITALS (63 sets, daily range): BP systolic 86–162; BP diastolic 41–103; PULSE 77–125; RESP 16; TEMP 36.4–36.8; O2SAT 90–100; BMI 44.8; BMI 1000.0; BMI 20250910.0
--- OUTSIDE RECORDS SUMMARY | 2025-01-06 06:42 | XMS RPT_ITS | CCD ---
Author Organization [facility] CliniSynm Care Team Providers Care Map Drafter Name Role Phone [place], [place] A Unavailable [...] L Unavailable Unavailable Sridhar PITTMAN, Dr. Donald Pitmtan Primary Care Provider Sridhar PITTMAN, Dr. Donald Pittman Attending Provider Dr. Donald Waller MD Referring Provider Noemi FAN-Magda Marítnez Attending Provider Susie Solomon CNM Attending Provider [phone] Susie Solomon CNM Referring Provider Dr. Nita Mcintosh MD Attending Provider Dr. Nita Mcintosh MD Referring Provider [phone] Dr. Donald Waller MD Primary Care Provider Dr. Donald Waller MD Attending Provider Dr. Donald Waller MD Referring Provider Sudheer FAN-Jennifer Martínez Attending Provider Suhdeer FAN-CJennifer Referring Provider Dr. Donald Waller MD Primary Care Provider Sridhar PITTMAN, Dr. Donald Pittman Referring Provider [phone] Manolo Coburn DO, Dr. Davis Attending Provider Dinh Livingston Attending Provider Sridhar PITTMAN, Dr. Donald Pittman Primary Care Provider Sridhar PITTMAN, Dr. Donald Pittman Referring Provider Sridhar PITTMAN, Dr. Donald Pittman Attending Provider [phone] Sridhar PITTMAN, Dr. Donald Pittman Primary Care Provider [phone] Sridhar PITTMAN, Dr. Donald Pittman Referring Provider [phone] Arnaldo PITTMAN, Dr. Moya Attending Provider Arnaldo PITTMAN, Dr. Moya Referring Provider Ky PITTMAN, Dr. Sena Attending Provider Sridhar PITTMAN, Dr. Donald Pittman Primary Care Provider Sridhar PITTMAN, Dr. Donald Pittman Referring Provider [phone] Sudheer FAN-CJennifer Attending Provider Ky PITTMAN, Dr. Sena Attending Provider Sudheer PATHOLOGY SECRETARY-CJennifer Referring Provider Susie Solomon CNM Attending Provider [phone] Sridhar PITTMAN, Dr. Donald Pittman Primary Care Provider Arnaldo PITTMAN, Dr. Moya Attending Provider Dr. Nita Mcintosh MD Referring Provider Sridhar PITTMAN, Dr. Donald Pittman Primary Care Provider Sridhar PITTMAN, Dr. Donald Pittman Referring Provider [phone] Manolo Coburn DO, Dr. Davis Attending Provider Donald Waller Referring Unavailable Jennifer Willard NP Attending Unavailable Donald Waller Primary Care Unavailable Donald Waller Referring Unavailable Schinner, Donald E Primary Care Unavailable Nita Mcintosh Attending Unavailable Schinner Donald E Referring Unavailable Susan Chavez Attending Unavailronda e Schinner, Donald E Primary Care Unavailable Schinner, Donald E Primary Care Unavailable Nita Mcintosh Attending Unavailable Schinner, Donald E Referring Unavailable Schinner, Donald E Primary Care Unavailable Sudheer PATHOLOGY SECRETARY, Jennifer Referring Unavailable Sudheer PATHOLOGY SECRETARY, Jennifer Attending Unavailable Schinner, Donald E Referring Unavailable SchinnerDonald E Attending Unavailable Schinner, Donald E Primary Care Unavailable Schinner, Donald E Referring Unavailable Schinner, Donald E Primary Care Unavailable Susie Solomon Attending Unavailable Schinner, Donald E Referring Unavailable Schinner, Donald E Primary Care Unavailable Nita Mcintosh Attending Unavailable Schinner, Donald E Referring Unavailable Schinner, Donald E Primary Care Unavailable Nita Mcintosh Attending Unavailable Schinner, Donald E Referring Unavailable Schinner, Donald E Primary Care Unavailable Susie Solomon Attending Unavailable Schinner, Donald E Referring Unavailable Schinner Donald E Attending Unavailable Schinner, Donald E Primary Care Unavailable Schinner, Donald E Referring Unavailable Schinner Donald E Attending Unavailable Schinner, Donald E Primary Care Unavailable Schinner, Donald E Primary Care Unavailable Nita Mcintosh Attending Unavailable Nita Mcintosh Referring Unavailable Schinner, Donald E Primary Care Unavailable Nita Mcintosh Attending Unavailable Nita Mcintosh Referring Unavailable Sudheer PATHOLOGY SECRETARY, Jennifer Referring Unavailable [place] PATHOLOGY SECRETARY, Jennifer Attending Unavailable Schinner, Donald E Primary Care Unavailable SchinnerDonald E Attending Unavailable Schinner, Donald E Primary Care Unavailable Schinner Donald E Referring Unavailable Schinner, Donald E Primary Care Unavailable Nita Mcintosh Attending Unavailable Schinner, Donald E Primary Care Unavailable Schinner, Donald E Referring Unavailable Nita Mcintosh Attending Unavailable Schcynthia, Donald E Primary Care Unavailable Nita Mcintosh Attending Unavailable Nita Mcintosh Referring Unavailable Schinner, Donald E Primary Care Unavailable Susie Solomon Referring Unavailable Susie Solomon Attending Unavailable Schinner, Donald E Primary Care Unavailable Nita Mcintosh Attending Unavailable Nita Mcintosh Referring Unavailable Schinner, Donald E Referring Unavailable Schinner, Donald E Primary Care Unavailable Nita Mcintosh Attending Unavailable Schinner, Donald E Referring Unavailable Vande Velde, Susan Attending UnavailDonald Elizabeth Primary Care Unavailable Donald Waller Referring Unavailable Jennifer Willard NP Attending Unavailable Donald Waller Primary Care Unavailable Donald Waller Referring Unavailable Donadl Waller Primary Care Unavailable Dinh Livingston Attending Unavailable Donald Waller Referring Unavailable Jennifer Willard NP Attending Unavailable Donald Waller Primary Care Unavailable Donald Waller Referring Unavailable Magda Franklin Attending Unavailable Donald Waller Primary Care Unavailable Medications Current Medications Medication Drug Class(es) Dates Sig (Normalized) Sig (Original) bacillus coagulans [id number] unt chewable tablet (17 sources) Start: 05-26-2024 Bacillus Coagulans (Probiotic (B. Coagulans)) 250 million cell tablet,chewable Active 2 {tbl} PO ONCE May 26, 2024 1:00am calcium ascorbate 500 mg oral tablet (17 sources) Start: 05-26-2024 take 1 tablet by mouth once daily Ascorbate Calcium (Vitamin C) 500 mg tablet Active 500 mg PO daily May 26, 2024 1:00am 24 hr ferrous sulfate 142 mg extended release oral tablet (17 sources) Start: 05-26-2024 take 1 tablet by mouth once daily Ferrous Sulfate (Slow Fe) 137 mg (45 mg iron) tablet extended release Active 137 mg PO daily May 26, 2024 1:00am ondansetron 4 mg disintegrating oral tablet (16 sources) Serotonin-3 Receptor Antagonist Start: 08-04-2024 take 1 tablet by mouth every four hours as needed for nausea and vomiting Ondansetron 4 mg tablet,disintegra ting Active 4 mg PO Q4H as needed for nausea and vomiting 60 2 August 04, 2024 12:00am Pnv No.481-Xd-Rq2-Dha-Epa -Fish 400 mcg-35 mg- 25 mg-5 mg tablet,chewable (17 sources) Start: 05-26-2024 Pnv No.002-Yn-Fn2-Dha -Epa-Fish 400 mcg-35 mg- 25 mg-5 mg tablet,chewable Active {tbl} PO May 26, 2024 1:00am Completed/Discontinued Medications Medication Drug Class(es) Dates Sig (Normalized) Sig (Original) amoxicillin 875 mg oral tablet (15 sources) Penicillin-class Antibacterial Start: 09-28-2024 End: 11-09-2024 take 1 tablet by mouth twice daily Amoxicillin 875 mg tablet Discontinued 875 mg PO TWICE A DAY 20 0 September 28, 2024 12:00am November 09, 2024 3:42pm Problems Active Problems Problem Classification Problem Date Documented Date Episodic/Chronic Anxiety disorders (20 sources) Anxiety; Translations: [Anxiety disorder, unspecified] Onset: 5 05-26-2024 Chronic Comment on above: not medicated not medicated; stabl e Genitourinary congenital anomalies (20 sources) Congenital vesicoureterorenal reflux; Translations: [Congenital kzvyww-dhxpgdt-krvdy reflux] Onset: 5 08-04-2024 Chronic Comment on above: check urine func Q3 mo:CMP and urine PC ratio Genitourinary symptoms and ill-defined conditions (1 source) Dysuria; Translations: [Dysuria] Onset: 5 Episodic Immunizations and screening for infectious disease (1 source) Encounter for immunization; Translations: [Encounter for immunization] Onset: 5 Episodic Other complications of (20 sources) Maternal obesity [...] Chronic Other diseases of kidney and ureters (20 sources) Kidney disease; Translations: [Disorder of kidney and ureter, unspecified] 09-28-2024 Episodic Other diseases of kidney and ureters (1 source) Disorder of kidney and ureter, unspecified; Translations: [Disorder of kidney and ureter, unspecified] Onset: 5 Episodic Other and delivery including normal (20 sources) Normal ; Translations: [Encounter for supervision of normal first , unspecified trimester] Onset: 5 07-08-2024 Episodic Comment on above: PRR, , TERRENCE , Significant other Juan elects NIPT with Gen daniella NIPT low risk PRR, , TERRENCE , Significant other Juan. nl anatomy PRR, , TERRENCE ,girl Juniper Significant other Juan. nl anatomy NIPT low risk. nl an atomy GBS Neg, NIPT low ri sk. nl anatomy Other screening for suspected conditions [...] Labs Q3mo:CMP and urine P/C ratio: 7/1: with her reflux-runs just above normal. Follows with Dr Worley. Labs Q3mo:CMP and urine P/C ratio: 7/1: not done Residual codes; unclassified (20 sources) Nicotine-filled electronic cigarette user; Translations: [Tobacco use] 05-26-2024 Episodic Comment on above: Has decreased % of n icotine, considering quitting, smoking education provided Residual codes; unclassified (20 sources) FH: Hemophilia; Translations: [Family history of diseases of the blood and blood-forming organs and certain disorders involving the immune mechanism] 05-26-2024 Episodic Comment on above: Maternal Aunt Maternal Aunt, decli chuy testing. the aunt has a different mom than her mom. Residual codes; unclassified (1 source) Tobacco use; Translations: [Tobacco use] Onset: 5 Episodic Residual codes; unclassified (1 source) Family history of diseases of the blood and blood-forming organs and certain disorders involving the immune mechanism; Translations: [Family history of diseases of the blood and blood-forming organs and certain disorders involving the immune mechanism] Onset: 5 Episodic Residual codes; unclassified (1 source) 39 weeks gestation of ; Translations: [39 weeks gestation of ] Onset: 5 Episodic Residual codes; unclassified (1 source) 37 weeks gestation of ; Translations: [37 weeks gestation of ] Onset: 5 Episodic Residual codes; unclassified (1 source) 35 weeks gestation of ; Translations: [35 weeks gestation of ] Onset: 5 Episodic Residual codes; unclassified (1 source) 34 weeks gestation of ; Translations: [34 weeks gestation of ] Onset: 5 Episodic Residual codes; unclassified (1 source) 31 weeks gestation of ; Translations: [31 weeks gestation of ] Onset: 5 Episodic Unclassified (1 source) Other specified diseases and conditions complicating ; Translations: [Other specified diseases and conditions complicating ] Onset: 5 Past or Other Problems Problem Classification Problem Date Documented Da te Episodic/Chronic Residual codes; unclassified (1 source) 17 weeks gestation of ; Translations: [17 weeks gestation of ] Onset: 08-04-2024 Episodic Residual codes; unclassified (1 source) 13 weeks gestation of ; Translations: [13 weeks gestation of ] Onset: 07-07-2024 Episodic Residual codes; unclassified (1 source) 9 weeks gestation of ; Translations: [9 weeks gestation of ] Onset: 06-04-2024 Episodic Urinary tract infections (20 sources) Recurrent urinary tract infection; Translations: [Urinary tract infection, site not specified] Onset: 08-07-2024 04-15-2024 Episodic Results Test Name Value Interpretation Reference Range Facility Research Laboratory Technician Office Visit Reporton 01-04-2025 Research Laboratory Technician Office Visit Report [facility] [address], [address] [place] [address] OFFICE VISIT Date of Service: 01/04/25 MR#: [id number] Acct: [id number] Name: LUCIANO KENDALL Rep #: [id number] : 2000 Provider: Dr. Nita motley MD Age/Sex: 24/F Location: [facility] Status: Signed Intake Vital Signs 11/09/24 15:36 12/30/24 15:11 01/04/25 15:10 Height 5 ft 8 in 5 ft 8 in 5 ft 8 in Weight: 297 lb 7 oz BMI 45.2 BP 129/85 H Intake Visit Reasons: 40 wk ob *Happy Due Date* Static Balancer Required: No Allergies No Known Allergies Allergy (Verified 01/04/25 15:11) Medications ???Medication ???Instructions ???Recorded ???Confirmed ???Type Bacillus coagulans 250 million 2 tab PO ONCE 05/26/24 01/04/25 Hi story cell chewable tablet (Probiotic (B. coagulans)) PNV 153-FA 400 mcg-om3 35 mg-dha tab PO 05/26/24 01/04/25 History 25 mg-epa 5 mg-fish oil chew tablet ascorbate calcium (vitamin C) 500 500 mg PO QDAY 05/26/24 01/04/25 History mg tablet ferrous sulfate 137 mg (45 mg 137 mg PO QDAY 05/26/24 01/04/25 H istory iron) tablet,extended release (Slow Fe) ondansetron 4 mg disintegrating 4 mg PO Q4H PRN nausea and 5 01/04/25 Rx tablet vomiting #60 tabs Last Menstrual Period: 04/01/24 Zika: Zika virus screening: Negative : No PFSH PFSH Medical History Congenital vmkmbv-lmhshyk-ulwaf reflux Gallstones UTI (urinary tract infection) Asthma Surgical History Hx of cholecystectomy Hx of tonsillectomy Family History Father Diabetes Type 1 Aunt Thyroid disorder Maternal Mother Thyroid disorder enlarged Grandmother Breast cancer Paternal Social History adopted: No household members: significant other 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al status: employed 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[employer] Lab 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al exposures/hazards: No pets [...] 1-2 times per week duration: 60-90 minutes/day sid/buddhism: None seatbelt use: always do you feel safe at home: Yes additional social history: significant other- Juan History 1 Elective abortions Hx Para 0 Spontaneous abortions Hx # Term Pregnancies Ectopic pregnancies Hx # Pregnancies Multiple births # of living children HPI 40 wk ob *Happy Due Date* Details: LUCIANO KENDALL is a 24 year old who presents for routine OB visit. OB Visit TERRENCE Calculator Estimated Delivery Date Method Current WG Current Estimate 01/06/25 LMP (Certain) 39w 5d Other Estimates 01/09/25 Ultrasound #1 39w 2d Expected Delivery Route/Plan Labor Preferences- CB/BF classes: encouraged- will take online labor support person: Wesley labor intervention preferences: epidural pain management options preferred: [] cut cord/dad catch: maybe cord : yes PP control planned: discussed discussed possible routes of delivery and associated risks: [] special requests: [] Specific Issue/Plans Covid status: [] Flu vaccine: [] Tdap vaccine: 10/27/24 Rhogam: NA LARC form signed: yes movement and labor precautions reviewed. Problem list reviewed and updated with the [...] KW- CRL cons with dates. accepts nipt. 07/07/ (more content not included)... Normal [facility] Laboratory - Chemistry and C hemistry - challengeOrdered By: Susan Coburn on 12-30-2024 Glucose Ql (U) Negative [facility] Laboratory - UrinalysisOrder ed By: Susan Coburn on 12-30-2024 Protein Ql (U) Negative [facility] Research Laboratory Technician Office Visit Reporton 12-30-2024 Research Laboratory Technician Office Visit Report [facility] [address], [address] [place] [address] OFFICE VISIT Date of Service: 12/30/24 MR#: [id number] Acct: [id number] Name: LUCIANO KENDALL Rep #: [id number] : 2000 Provider: Dr. Susan Lau DO Age/Sex: 24/F Location: [facility] Status: Signed Intake Vital Signs 11/09/24 15:36 12/22/24 12:59 12/30/24 15:08 12/30/24 15:11 Height 5 ft 8 in 5 ft 8 in 5 ft 8 in 5 ft 8 in Weight: 296 lb 4 oz BMI 45.0 BP 119/82 H Intake Visit Reasons: 39 wk ob Static Balancer Required: No Is patient in pain?: No Allergies No Known Allergies Allergy (Verified 12/30/24 15:08) Medications ???Medication ???Instructions ???Recorded ???Confirmed ???Type Bacillus coagulans 250 million 2 tab PO ONCE 05/26/24 12/30/24 Hi story cell chewable tablet (Probiotic (B. coagulans)) PNV 153-FA 400 mcg-om3 35 mg-dha tab PO 05/26/24 12/30/24 History 25 mg-epa 5 mg-fish oil chew tablet ascorbate calcium (vitamin C) 500 500 mg PO QDAY 05/26/24 12/30/24 History mg tablet ferrous sulfate 137 mg (45 mg 137 mg PO QDAY 05/26/24 12/30/24 H istory iron) tablet,extended release (Slow Fe) ondansetron 4 mg disintegrating 4 mg PO Q4H PRN nausea and 5 12/30/24 Rx tablet vomiting #60 tabs Last Menstrual Period: 04/01/24 : No PFSH PFSH Medical History Congenital jqpdzm-jxhbvep-pmbql reflux Gallstones UTI (urinary tract infection) Asthma Surgical History Hx of cholecystectomy Hx of tonsillectomy Family History Father Diabetes Type 1 Aunt Thyroid disorder Maternal Mother Thyroid disorder enlarged Grandmother Breast cancer Paternal Social History adopted: No household members: significant other 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al status: employed 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[employer] Lab 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al exposures/hazards: No pets [...] 1-2 times per week duration: 60-90 minutes/day sid/buddhism: None seatbelt use: always do you feel safe at home: Yes additional social history: significant other- Juan History 1 Elective abortions Hx Para 0 Spontaneous abortions Hx # Term Pregnancies Ectopic pregnancies Hx # Pregnancies Multiple births # of living children HPI 39 wk ob Details: LUCIANO KENDALL is a 24 year old who presents for routine OB visit. OB Visit TERRENCE Calculator Estimated Delivery Date Method Current WG Current Estimate 01/06/25 LMP (Certain) 39w 0d Other Estimates 01/09/25 Ultrasound #1 38w 4d Expected Delivery Route/Plan Labor Preferences- CB/BF classes: encouraged- will take online labor support person: Wesley labor intervention preferences: epidural pain management options preferred: [] cut cord/dad catch: maybe cord : yes PP control planned: discussed discussed possible routes of delivery and associated risks: [] special requests: [] Specific Issue/Plans Covid status: [] Flu vaccine: [] Tdap vaccine: 10/27/24 Rhogam: NA LARC form signed: yes movement and labor precautions reviewed. Problem list reviewed and updated with the [...] CRL cons with dates. accepts nipt. 07/07/24 -???- (more content not included)... Normal [facility] Laboratory - Chemistry and C hemistry - challengeOrdered By: Nita Mcintosh on 12-22-2024 Glucose Ql (U) Negative [facility] Laboratory - UrinalysisOrder ed By: Nita Mcintosh on 12-22-2024 Protein Ql (U) Negative [facility] Research Laboratory Technician Office Visit Reporton 12-22-2024 Research Laboratory Technician Office Visit Report [facility] [address], [address] [place] [address] OFFICE VISIT Date of Service: 12/22/24 MR#: [id number] Acct: [id number] Name: LUCIANO KENDALL Rep #: [id number] : 2000 Provider: Dr. Nita motley MD Age/Sex: 24/F Location: [facility] Status: Signed Intake Vital Signs 11/09/24 15:36 11/19/24 08:40 12/17/24 15:50 12/22/24 12:59 Height 5 ft 8 in 5 ft 8 in 5 ft 8 in 5 ft 8 in Weight: 293 lb BMI 44.5 BP 119/83 H Intake Visit Reasons: 38 wk ob Static Balancer Required: No Is patient in pain?: No Allergies No Known Allergies Allergy (Verified 12/22/24 13:01) Medications ???Medication ???Instructions ???Recorded ???Confirmed ???Type Bacillus coagulans 250 million 2 tab PO ONCE 05/26/24 12/22/24 Hi story cell chewable tablet (Probiotic (B. coagulans)) PNV 153-FA 400 mcg-om3 35 mg-dha tab PO 05/26/24 12/22/24 History 25 mg-epa 5 mg-fish oil chew tablet ascorbate calcium (vitamin C) 500 500 mg PO QDAY 05/26/24 12/22/24 History mg tablet ferrous sulfate 137 mg (45 mg 137 mg PO QDAY 05/26/24 12/22/24 H istory iron) tablet,extended release (Slow Fe) ondansetron 4 mg disintegrating 4 mg PO Q4H PRN nausea and 5 12/22/24 Rx tablet vomiting #60 tabs Last Menstrual Period: 04/01/24 Zika: Zika virus screening: Negative : No PFSH PFSH Medical History Congenital iytpka-aublodb-bcozb reflux Gallstones UTI (urinary tract infection) Asthma Surgical History Hx of cholecystectomy Hx of tonsillectomy Family History Father Diabetes Type 1 Aunt Thyroid disorder Maternal Mother Thyroid disorder enlarged Grandmother Breast cancer Paternal Social History adopted: No household members: significant other 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al status: employed 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 OB Visit TERRENCE Calculator Estimated Delivery Date Method Current WG Current Estimate 01/06/25 LMP (Certain) 37w 6d Other Estimates 01/09/25 Ultrasound #1 37w 3d Expected Delivery Route/Plan Labor Preferences- CB/BF classes: encouraged- will take online labor support person: Wesley labor intervention preferences: epidural pain management options preferred: [] cut cord/dad catch: maybe cord : yes PP control planned: discussed discussed possible routes of delivery and associated risks: [] special requests: [] Specific Issue/Plans Covid status: [] Flu vaccine: [] Tdap vaccine: 10/27/24 Rhogam: NA LARC form signed: yes movement and labor precautions reviewed. Problem list reviewed and updated with the [...] ??-???- KW- CRL cons with dates. accepts ni (more content not included)... Normal [facility] Rule out Beta Strep (Grp. B) on 12-21-2024 [facility] Group B Beta Streptococcus is not isolated. Normal [facility] Comment on above: Performed By: #### L 100.0100, L509.8002, L3890.6006 #### [facility] Laboratory [address] [place], [address] Laboratory - Chemistry and C hemistry - challengeOrdered By: Nita Mcintosh on 12-17-2024 Glucose Ql (U) Negative [facility] Laboratory - UrinalysisOrder ed By: Nita Mcintosh on 12-17-2024 Protein Ql (U) Negative [facility] Research Laboratory Technician Office Visit Reporton 12-17-2024 Research Laboratory Technician Office Visit Report [facility] [address], [address] [place] [address] OFFICE VISIT Date of Service: 12/17/24 MR#: [id number] Acct: [id number] Name: LUCIANO KENDALL Rep #: [id number] : 2000 Provider: Dr. Nita motley MD Age/Sex: 24/F Location: [facility] Status: Signed Intake Vital Signs 11/09/24 15:36 12/08/24 09:37 12/17/24 15:48 12/17/24 15:50 Height 5 ft 8 in 5 ft 8 in 5 ft 8 in 5 ft 8 in Weight: 291 lb 2 oz BMI 44.2 BP 138/87 H Intake Visit Reasons: 37 wk ob Static Balancer Required: No Is patient in pain?: No Allergies No Known Allergies Allergy (Verified 12/17/24 15:47) Medications ???Medication ???Instructions ???Recorded ???Confirmed ???Type Bacillus coagulans 250 million 2 tab PO ONCE 05/26/24 12/17/24 Hi story cell chewable tablet (Probiotic (B. coagulans)) PNV 153-FA 400 mcg-om3 35 mg-dha tab PO 05/26/24 12/17/24 History 25 mg-epa 5 mg-fish oil chew tablet ascorbate calcium (vitamin C) 500 500 mg PO QDAY 05/26/24 12/17/24 History mg tablet ferrous sulfate 137 mg (45 mg 137 mg PO QDAY 05/26/24 12/17/24 H istory iron) tablet,extended release (Slow Fe) ondansetron 4 mg disintegrating 4 mg PO Q4H PRN nausea and 5 12/17/24 Rx tablet vomiting #60 tabs Last Menstrual Period: 04/01/24 Zika: Zika virus screening: Negative : No PFSH PFSH Medical History Congenital swoqwh-rypsucy-orbcp reflux Gallstones UTI (urinary tract infection) Asthma Surgical History Hx of cholecystectomy Hx of tonsillectomy Family History Father Diabetes Type 1 Aunt Thyroid disorder Maternal Mother Thyroid disorder enlarged Grandmother Breast cancer Paternal Social History adopted: No household members: significant other 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al status: employed 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[employer] Lab 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al exposures/hazards: No pets [...] 1-2 times per week duration: 60-90 minutes/day sid/buddhism: None seatbelt use: always do you feel safe at home: Yes additional social history: significant other- Juan History 1 Elective abortions Hx Para 0 Spontaneous abortions Hx # Term Pregnancies Ectopic pregnancies Hx # Pregnancies Multiple births # of living children HPI 37 wk ob Details: LUCIANO KENDALL is a 24 year old who presents for routine OB visit. OB Visit TERRENCE Calculator Estimated Delivery Date Method Current WG Current Estimate 01/06/25 LMP (Certain) 37w 1d Other Estimates 01/09/25 Ultrasound #1 36w 5d Expected Delivery Route/Plan Labor Preferences- CB/BF classes: encouraged- will take online labor support person: Wesley labor intervention preferences: epidural pain management options preferred: [] cut cord/dad catch: maybe cord : yes PP control planned: discussed discussed possible routes of delivery and associated risks: [] special requests: [] Specific Issue/Plans Covid status: [] Flu vaccine: [] Tdap vaccine: 10/27/24 Rhogam: NA LARC form signed: yes movement and labor precautions reviewed. Problem list reviewed and updated with the [...] ???-???-???-???-???-? ??-???- KW- CRL cons with dates. accep (more content not included)... Normal [facility] Screening beta-hemolytic Str eptococcus cultureOrdered By: Nita Mcintosh on 12-17-2024 Beta-hemolytic Streptococcus culture Group B Beta Streptococcus is not isolated. [facility] Laboratory - Chemistry and C hemistry - challengeOrdered By: Susie Solomon on 12-08-2024 Glucose Ql (U) Negative [facility] Laboratory - UrinalysisOrder ed By: Susie Solomon on 12-08-2024 Protein Ql (U) Negative [facility] Research Laboratory Technician Office Visit Reporton 12-08-2024 Research Laboratory Technician Office Visit Report [facility] [address], [address] [place] [address] OFFICE VISIT Date of Service: 12/08/24 MR#: [id number] Acct: [id number] Name: LUCIANO KENDALL Rep #: [id number] : 2000 Provider: ALEXANDRA Coughlin ams Age/Sex: 24/F Location: [facility] Status: Signed Intake Vital Signs 10/27/24 13:28 11/27/24 14:23 12/08/24 09:37 Height 5 ft 8 in 5 ft 8 in 5 ft 8 in Weight: 286 lb 8 oz BMI 43.5 BP 130/82 H Intake Visit Reasons: 36wk ob Chief Complaint: 36wk ob Static Balancer Required: No Is patient in pain?: No Allergies No Known Allergies Allergy (Verified 12/08/24 09:33) Medications ???Medication ???Instructions ???Recorded ???Confirmed ???Type Bacillus coagulans 250 million 2 tab PO ONCE 05/26/24 12/08/24 Hi story cell chewable tablet (Probiotic (B. coagulans)) PNV 153-FA 400 mcg-om3 35 mg-dha tab PO 05/26/24 12/08/24 History 25 mg-epa 5 mg-fish oil chew tablet ascorbate calcium (vitamin C) 500 500 mg PO QDAY 05/26/24 12/08/24 History mg tablet ferrous sulfate 137 mg (45 mg 137 mg PO QDAY 05/26/24 12/08/24 H istory iron) tablet,extended release (Slow Fe) ondansetron 4 mg disintegrating 4 mg PO Q4H PRN nausea and 5 12/08/24 Rx tablet vomiting #60 tabs Last Menstrual Period: 04/01/24 : No Have you fallen in the past year?: No PFSH PFSH Medical History Congenital gpksoy-eonpvku-shxjp reflux Gallstones UTI (urinary tract infection) Asthma Surgical History Hx of cholecystectomy Hx of tonsillectomy Family History Father Diabetes Type 1 Aunt Thyroid disorder Maternal Mother Thyroid disorder enlarged Grandmother Breast cancer Paternal Social History adopted: No household members: significant other 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al status: employed 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[employer] Lab 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al exposures/hazards: No pets [...] 1-2 times per week duration: 60-90 minutes/day sid/buddhism: None seatbelt use: always do you feel safe at home: Yes additional social history: significant other- Juan History 1 Elective abortions Hx Para 0 Spontaneous abortions Hx # Term Pregnancies Ectopic pregnancies Hx # Pregnancies Multiple births # of living children HPI 36wk ob Details: LUCIANO KENDALL is a 24 year old who presents for routine OB visit. OB Visit TERRENCE Calculator Estimated Delivery Date Method Current WG Current Estimate 01/06/25 LMP (Certain) 35w 6d Other Estimates 01/09/25 Ultrasound #1 35w 3d Expected Delivery Route/Plan Labor Preferences- CB/BF classes: encouraged- will take online labor support person: Wesley labor intervention preferences: epidural pain management options preferred: [] cut cord/dad catch: maybe cord : yes PP control planned: discussed discussed possible routes of delivery and associated risks: [] special requests: [] Specific Issue/Plans Covid status: [] Flu vaccine: [] Tdap vaccine: 10/27/24 Rhogam: NA LARC form signed: yes movement and labor precautions reviewed. Problem list reviewed and updated with the [...] CRL cons with dates. accepts nipt. 07/07/24 (more content not included)... Normal [facility] Laboratory - Chemistry and C hemistry - challengeOrdered By: Nita Mcintosh on 11-27-2024 Glucose Ql (U) Negative [facility] Laboratory - UrinalysisOrder ed By: Nita Mcintosh on 11-27-2024 Protein Ql (U) Negative [facility] Research Laboratory Technician Office Visit Reporton 11-27-2024 Research Laboratory Technician Office Visit Report [facility] [address], [address] [place] [address] OFFICE VISIT Date of Service: 11/27/24 MR#: [id number] Acct: [id number] Name: LUCIANO KENDALL Rep #: [id number] : 2000 Provider: Dr. Nita motley MD Age/Sex: 24/F Location: [facility] Status: Signed Intake Vital Signs 10/27/24 13:28 11/09/24 15:36 11/19/24 08:40 11/27/24 14:23 Height 5 ft 8 in 5 ft 8 in 5 ft 8 in 5 ft 8 in Weight: 282 lb 3 oz BMI 42.9 BP 138/85 H Intake Visit Reasons: 34wk ob Static Balancer Required: No Is patient in pain?: No Allergies No Known Allergies Allergy (Verified 11/27/24 14:22) Medications ???Medication ???Instructions ???Recorded ???Confirmed ???Type Bacillus coagulans 250 million 2 tab PO ONCE 05/26/24 11/27/24 Hi story cell chewable tablet (Probiotic (B. coagulans)) PNV 153-FA 400 mcg-om3 35 mg-dha tab PO 05/26/24 11/27/24 History 25 mg-epa 5 mg-fish oil chew tablet ascorbate calcium (vitamin C) 500 500 mg PO QDAY 05/26/24 11/27/24 History mg tablet ferrous sulfate 137 mg (45 mg 137 mg PO QDAY 05/26/24 11/27/24 H istory iron) tablet,extended release (Slow Fe) ondansetron 4 mg disintegrating 4 mg PO Q4H PRN nausea and 5 11/27/24 Rx tablet vomiting #60 tabs Last Menstrual Period: 04/01/24 Zika: Zika virus screening: Negative : No PFSH PFSH Medical History Congenital qnkhjw-wwsudii-tzmrz reflux Gallstones UTI (urinary tract infection) Asthma Surgical History Hx of cholecystectomy Hx of tonsillectomy Family History Father Diabetes Type 1 Aunt Thyroid disorder Maternal Mother Thyroid disorder enlarged Grandmother Breast cancer Paternal Social History adopted: No household members: significant other 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al status: employed 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[employer] Lab 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al exposures/hazards: No pets [...] 1-2 times per week duration: 60-90 minutes/day sid/buddhism: None seatbelt use: always do you feel safe at home: Yes additional social history: significant other- Juan History 1 Elective abortions Hx Para 0 Spontaneous abortions Hx # Term Pregnancies Ectopic pregnancies Hx # Pregnancies Multiple births # of living children HPI 34wk ob Details: LUCIANO KENDALL is a 24 year old who presents for routine OB visit. OB Visit TERRENCE Calculator Estimated Delivery Date Method Current WG Current Estimate 01/06/25 LMP (Certain) 34w 2d Other Estimates 01/09/25 Ultrasound #1 33w 6d Expected Delivery Route/Plan Labor Preferences- CB/BF classes: encouraged- will take online labor support person: Wesley labor intervention preferences: epidural pain management options preferred: [] cut cord/dad catch: maybe cord : yes PP control planned: discussed discussed possible routes of delivery and associated risks: [] special requests: [] Specific Issue/Plans Covid status: [] Flu vaccine: [] Tdap vaccine: 10/27/24 Rhogam: NA LARC form signed: yes movement and labor precautions reviewed. Problem list reviewed and updated with the [...] ??-???- KW- CRL cons with dates. accepts (more content not included)... Normal [facility] Urine Cultureon 11-21-2024 URC Below infection level. Mixed Gram Positive Organisms Samson Count <1000 MIXC Mixed contaminants. Submit a new specimen if indicated. Normal [facility] Comment on above: Performed By: #### M 100.2200, L100.0100 #### [facility] Laboratory [address] [place], [place], [id number] Absolute lymphocyte countOrd ered By: Nita Corralesalta on 11-19-2024 Lymphocytes Auto (Unsp spec) [#/Vol] 2.77 10*3/uL 0.83-4.51 [facility] Absolute neutrophil countOrd ered By: Nita Corralesalta on 11-19-2024 Neutrophils (Bld) [#/Vol] 11.4 10*3/uL High 2.0-7.7 [facility] Automated lymphocyte count a s percentage of total leukocytesOrdered By: Nita Corralesalta on 11-19-2024 Lymphocytes/100 WBC Auto (Unsp spec) 17.0 % Low 19-41 [facility] Basophil percentageOrdered B y: Nita Corralesalta on 11-19-2024 Basophils/100 WBC (Bld) 0.4 % 0-1 [facility] CBC W/Diff, Automatedon 10-28 Absolute Lymph 2.77 X10 3/uL Normal 0.83-4.51 [facility] Comment on above: Performed By: #### M 100.2200, L100.0100 #### [facility] [address] [place], [place], [id number] Absolute Neut 11.4 X10 3/uL High 2.0-7.7 [facility] Comment on above: Performed By: #### M 100.2200, L100.0100 #### [facility] [address] [place], [address] Basophils/100 WBC (Bld) 0.4 % Normal 0-1 [facility] Comment on above: Performed By: #### M 100.2200, L100.0100 #### [facility] [address] [place], [address] Eosinophils/100 WBC (Bld) 1.2 % Normal 0-5 [facility] Comment on above: Performed By: #### M 100.2200, L100.0100 #### [facility] [address] [place], [address] Erythrocyte distribution width (RBC) [Ratio] 13.2 % Normal 11.6-14.6 [facility] Comment on above: Performed By: #### M 100.0, L100.0100 #### [facility] [address] [place], [address] Hematocrit (Bld) [Volume fraction] 37.2 % Normal 37-47 [facility] Comment on above: Performed By: #### M 100.2200, L100.0100 #### [facility] [address] [place], [address] Hemoglobin (Bld) [Mass/Vol] 12.5 g/dL Normal 12.0-15.0 [facility] Comment on above: Performed By: #### M 100.2200, L100.0100 #### [facility] [address] [place], [address] IG% 4.900 High 0.0-0.9 [facility] Comment on above: Result Comment: IG% - Immature Granulocytes (promyelocytes, myelocytes and metamyelocytes) > 1% indicates that a LEFT SHIFT is Present. Performed By: #### M 100.2200, L100.0100 #### [facility] [address] [place], [address] Lymphocytes/100 WBC (Bld) 17.0 % Low 19-41 [facility] Comment on above: Performed By: #### M 100.2200, L100.0100 #### [facility] [address] [place], [address] MCH (RBC) [Entitic mass] 29.8 pg Normal 27.0-32.0 [facility] Comment on above: Performed By: #### M 100.2200, L100.0100 #### [facility] [address] [place], [address] MCHC (RBC) [Mass/Vol] 33.6 g/dL Normal 32-36 [facility] Comment on above: Performed By: #### M 100.0, L100.0100 #### [facility] [address] [place], [address] MCV (RBC) [Entitic vol] 88.8 fL Normal 81-99 [facility] Comment on above: Performed By: #### M 100.0, L100.0100 #### [facility] [address] [place], [address] Monocytes/100 WBC (Bld) 6.2 % Normal 0-10 [facility] Comment on above: Performed By: #### M 100.2200, L100.0100 #### [facility] [address] [place], [address] Neutrophils/100 WBC (Bld) 70.3 % High 47-70 [facility] Comment on above: Performed By: #### M 100.2200, L100.0100 #### [facility] [address] [place], [address] Nucleated RBC (Bld) [#/Vol] 0 10*3/uL Normal 0-5 [facility] Comment on above: Performed By: #### M 100.2200, L100.0100 #### [facility] [address] [place], [address] Platelet mean volume (Bld) [Entitic vol] 11.0 fL Normal 6.2-12.0 [facility] Comment on above: Performed By: #### M 100.2200, L100.0100 #### [facility] [address] [place], [address] Platelets (Bld) [#/Vol] 192 10*3/uL Normal 150-450 [facility] Comment on above: Performed By: #### M 100.2200, L100.0100 #### [facility] [address] [place], [address] RBC (Bld) [#/Vol] 4.19 10*6/uL Low 4.2-5.4 [facility] Comment on above: Performed By: #### M 100.2200, L100.0100 #### [facility] [address] [place], [address] RDW SD 42.8 fl Normal 35.1-43.9 [facility] Comment on above: Performed By: #### M 100.2200, L100.0100 #### [facility] [address] [place], [address] WBC (Bld) [#/Vol] 16.3 10*3/uL High 4.4-11.0 [facility] Comment on above: Performed By: #### M 100.2200, L100.0100 #### [facility] [address] [place], [address] Eosinophil percentageOrdered By: Nita Mcintosh on 11-19-2024 Eosinophils/100 WBC (Bld) 1.2 % 0-5 [facility] Erythrocyte distribution wid th ratioOrdered By: Nita Mcintosh on 11-19-2024 Erythrocyte distribution width (RBC) [Ratio] 13.2 % 11.6-14.6 [facility] Erythrocyte distribution wid th standard deviationOrdered By: Nita Mcintosh on 11-19-2024 Erythrocyte distribution width (RBC) [Ratio] 42.8 fl 35.1-43.9 [facility] Hematocrit Auto (Bld) [Volum e fraction]Ordered By: Nita Mcintosh on 11-19-2024 Hematocrit (Bld) [Volume fraction] 37.2 % 37-47 [facility] Hemoglobin measurementOrdere d By: Nita Mcintosh on 11-19-2024 Hemoglobin (Bld) [Mass/Vol] 12.5 g/dL 12.0-15.0 [facility] Immature granulocytes/100 WB C Auto (Bld)Ordered By: Nita Mcintosh on 11-19-2024 Immature granulocytes/100 WBC (Bld) 4.900 % High 0.0-0.9 [facility] Comment on above: IG% - Immature Granu locytes (promyelocytes, myelocytes and metamyelocytes) > 1% indicates that a LEFT SHIFT is Present. Laboratory - Chemistry and C hemistry - challengeOrdered By: Nita Mcintosh on 11-19-2024 Bilirubin Ql (U) Negative [facility] Glucose Ql (U) Negative [facility] Ketones Ql (U) Negative [facility] pH (U) 6.5 [pH] [facility] Urobilinogen (U) [Mass/Vol] Negative [facility] Laboratory - Hematology and Cell countsOrdered By: Nita Mcintosh on 11-19-2024 Hemoglobin Ql (U) Negative [facility] Laboratory - Specimen inform ationOrdered By: Nita Mcintosh on 11-19-2024 Clarity (U) Cloudy [facility] Color (U) Yellow [facility] Laboratory - UrinalysisOrder ed By: Nita Mcintosh on 11-19-2024 Nitrite Ql (U) Negative [facility] Protein Ql (U) Negative [facility] MCV (mean corpuscular volume ) determinationOrdered By: Nita Mcintosh on 11-19-2024 MCV (RBC) [Entitic vol] 88.8 fL 81-99 [facility] Mean corpuscular hemoglobin (MCH) determinationOrdered By: Nita Mcintosh on 11-19-2024 MCH (RBC) [Entitic mass] 29.8 pg 27.0-32.0 [facility] Mean corpuscular hemoglobin concentration (MCHC) determinationOrdered By: Nita Mcintosh on 11-19-2024 MCHC (RBC) [Mass/Vol] 33.6 g/dL 32-36 [facility] Mean platelet volume determi nationOrdered By: Nita Mcintosh on 11-19-2024 Platelet mean volume (Bld) [Entitic vol] 11.0 fL 6.2-12.0 [facility] Monocyte percentageOrdered B y: Nita Mcintosh on 11-19-2024 Monocytes/100 WBC (Bld) 6.2 % 0-10 [facility] Neutrophil percentageOrdered By: Nita Mcintosh on 11-19-2024 Neutrophils/100 WBC (Bld) 70.3 % High 47-70 [facility] No Panel InformationOrdered By: Nita Mcintosh on 11-19-2024 Urine Leukocytes Positive [facility] Urine Non-Hemolyzed Blood Negative [facility] Nucleated red blood cell per centageOrdered By: Nita Mcintosh on 11-19-2024 Nucleated RBC/100 WBC (Bld) [Ratio] 0 % 0-5 [facility] Research Laboratory Technician Office Visit Reporton 11-19-2024 Research Laboratory Technician Office Visit Report [facility] [address], [address] [place] [address] OFFICE VISIT Date of Service: 11/19/24 MR#: [id number] Acct: [id number] Name: LUCIANO KENDALL Rep #: [id number] : 2000 Provider: Dr. Nita motley MD Age/Sex: 24/F Location: [facility] Status: Signed Intake Vital Signs 11/09/24 15:36 11/19/24 08:40 Height 5 ft 8 in 5 ft 8 in Weight: 272 lb 6 oz BMI 41.4 BP 126/84 H Intake Visit Reasons: UA Chief Complaint: UA culture Static Balancer Required: No Is patient in pain?: No Allergies No Known Allergies Allergy (Verified 11/19/24 08:37) Medications ???Medication ???Instructions ???Recorded ???Confirmed ???Type Bacillus coagulans 250 million 2 tab PO ONCE 05/26/24 11/19/24 Hi story cell chewable tablet (Probiotic (B. coagulans)) PNV 153-FA 400 mcg-om3 35 mg-dha tab PO 05/26/24 11/19/24 History 25 mg-epa 5 mg-fish oil chew tablet ascorbate calcium (vitamin C) 500 500 mg PO QDAY 05/26/24 11/19/24 History mg tablet ferrous sulfate 137 mg (45 mg 137 mg PO QDAY 05/26/24 11/19/24 H istory iron) tablet,extended release (Slow Fe) ondansetron 4 mg disintegrating 4 mg PO Q4H PRN nausea and 5 11/19/24 Rx tablet vomiting #60 tabs Last Menstrual Period: 04/01/24 Zika: Zika virus screening: Negative : No Have you fallen in the past year?: No Nurse's Note: Patient presents for UA and culture d/t elevated WBC count per JV. UA + for moderate leukocytes. Patient denies any fever, burning with urination or abdominal cramping. Per CBC to be drawn toda y. Urine sent for culture. 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 OB Visit TERRENCE Calculator Estimated Delivery Date Method Current WG Current Estimate 01/06/25 LMP (Certain) 33w 6d Other Estimates 01/09/25 Ultrasound #1 33w 3d Expected Delivery Route/Plan Labor Preferences- CB/BF classes: encouraged labor support person: Wesley labor intervention preferences: epidural pain management options preferred: [] cut cord/dad catch: maybe cord : yes PP control planned: discussed discussed possible routes of delivery and associated risks: [] special requests: [] Specific Issue/Plans Covid status: [] Flu vaccine: [] Tdap vaccine: 10/27/24 Rhogam: NA LARC form signed: yes movement and labor precautions reviewed. Problem list reviewed and updated with the [...] -???-???-???-???-???- ???-???-???-???-???-? ??-???- Effaced St Visit Note (more content not included)... Normal [facility] Platelet countOrdered By: Amilcar Mcintosh on 11-19-2024 Platelets (Bld) [#/Vol] 192 10*3/uL 150-450 [facility] RBC Auto (Bld) [#/Vol]Ordere d By: Nita Mcintosh on 11-19-2024 RBC (Bld) [#/Vol] 4.19 10*6/uL Low 4.2-5.4 [facility] Urine cultureOrdered By: Dariusz Mcintosh on 11-19-2024 Bacteria identified Cx Nom (U) Positive Abnormal [facility] White blood cell (WBC) count Ordered By: Nita Mcintosh on 11-19-2024 WBC (Bld) [#/Vol] 16.3 10*3/uL High 4.4-11.0 [facility] CBC W/Diff, Automatedon 10-28 PATH REV Reviewed Normal [facility] Comment on above: Result Comment: SEE REPORT IN PATIENT'S EMR AMENDED REPORT 11/18/24 1111 PATH REV previously reported as: Bailey faustin Performed By: #### L 100.0100, L509.8002, L3890.6006 #### [facility] [address] [place], [place] [address]jul[place], [address] Laboratory - Chemistry and C hemistry - challengeOrdered By: Nita Mcintosh on 11-09-2024 Glucose Ql (U) Negative [facility] Laboratory - UrinalysisOrder ed By: Nita Mcintosh on 11-09-2024 Protein Ql (U) Negative [facility] Research Laboratory Technician Office Visit Reporton 11-09-2024 Research Laboratory Technician Office Visit Report [address], [address] [place] [address] OFFICE VISIT Date of Service: 11/09/24 MR#: [id number] Acct: [id number] Name: LUCIANO KENDALL Rep #: [id number] : 2000 Provider: Dr. Nita motley MD Age/Sex: 24/F Location: [facility] Status: Signed Intake Vital Signs 09/01/24 15:04 10/27/24 13:28 11/09/24 15:36 Height 5 ft 8 in 5 ft 8 in 5 ft 8 in Weight: 273 lb 4 oz BMI 41.5 BP 133/84 H Intake Visit Reasons: 32wk ob Static Balancer Required: No Is patient in pain?: No Allergies No Known Allergies Allergy (Verified 10/27/24 13:26) Medications ???Medication ???Instructions ???Recorded ???Confirmed ???Type Bacillus coagulans 250 million 2 tab PO ONCE 05/26/24 11/09/24 Hi story cell chewable tablet (Probiotic (B. coagulans)) PNV 153-FA 400 mcg-om3 35 mg-dha tab PO 05/26/24 11/09/24 History 25 mg-epa 5 mg-fish oil chew tablet ascorbate calcium (vitamin C) 500 500 mg PO QDAY 05/26/24 11/09/24 History mg tablet ferrous sulfate 137 mg (45 mg 137 mg PO QDAY 05/26/24 11/09/24 H istory iron) tablet,extended release (Slow Fe) ondansetron 4 mg disintegrating 4 mg PO Q4H PRN nausea and 5 11/09/24 Rx tablet vomiting #60 tabs Last Menstrual Period: 04/01/24 Zika: Zika virus screening: Negative : No PFSH PFSH Medical History Congenital bbbrwo-bxkcddj-gfeer reflux Gallstones UTI (urinary tract infection) Asthma Surgical History Hx of cholecystectomy Hx of tonsillectomy Family History Father Diabetes Type 1 Aunt Thyroid disorder Maternal Mother Thyroid disorder enlarged Grandmother Breast cancer Paternal Social History adopted: No household members: significant other 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al status: employed 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 OB Visit TERRENCE Calculator Estimated Delivery Date Method Current WG Current Estimate 01/06/25 LMP (Certain) 31w 5d Other Estimates 01/09/25 Ultrasound #1 31w 2d Expected Delivery Route/Plan Labor Preferences- CB/BF classes: encouraged labor support person: Wesley labor intervention preferences: epidural pain management options preferred: [] cut cord/dad catch: maybe cord : yes PP control planned: discussed discussed possible routes of delivery and associated risks: [] special requests: [] Specific Issue/Plans Covid status: [] Flu vaccine: [] Tdap vaccine: 10/27/24 Rhogam: NA LARC form signed: yes movement and labor precautions reviewed. Problem list reviewed and updated with the [...] cons with dates. accepts nipt. 07/07/24 -???-???-???-???-???- ???-???- (more content not included)... Normal [facility] Absolute lymphocyte countOrd ered By: Susan Coburn on 10-27-2024 Lymphocytes Auto (Unsp spec) [#/Vol] 1.68 10*3/uL 0.83-4.51 [facility] Absolute neutrophil countOrd ered By: Susan Coburn on 10-27-2024 Neutrophils (Bld) [#/Vol] 15.3 10*3/uL High 2.0-7.7 [facility] Anion gap in Serum or Plasma Ordered By: Jennifer Willard on 10-27-2024 Anion gap [Moles/Vol] 14 mmol/L 5-15 [facility] BUN/creatinine ratioOrdered By: Jennifer Willard on 10-27-2024 Urea nitrogen/Creatinine [Mass ratio] 16.7 mg/mg 10-20 [facility] Bilirubin, totalOrdered By: Jennifer Willard on 10-27-2024 Bilirubin [Mass/Vol] 0.17 mg/dL 0.00-1.30 [facility] Blood band neutrophil count as percentage of total leukocytesOrdered By: Susan Coburn on 10-27-2024 Band form neutrophils/100 WBC (Bld) 12 % High 0-5 [facility] Blood eosinophils/100 leukoc ytesOrdered By: Susan Coburn on 10-27-2024 Eosinophils/100 WBC (Bld) 1 % 0-5 [facility] Blood lymphocytes/100 leukoc ytesOrdered By: Susan Coburn on 10-27-2024 Lymphocytes/100 WBC (Bld) 9 % Low 19-41 [facility] Blood monocytes/100 leukocyt esOrdered By: Susan Coburn on 10-27-2024 Monocytes/100 WBC (Bld) 4 % 0-10 [facility] Blood segmented neutrophils/ 100 leukocytesOrdered By: Susan Coburn on 10-27-2024 Segmented neutrophils/100 WBC (Bld) 70 % 47-70 [facility] Carbon dioxide, total [Moles /volume] in Central venous bloodOrdered By: Jennifer Willard on 10-27-2024 CO2 [Moles/Vol] 19.6 mmol/L Low 21.0-32.0 [facility] Chloride assayOrdered By: David Willard on 10-27-2024 Chloride [Moles/Vol] 104 mmol/L 98-108 [facility] Comprehensive Metabolic Prof ilon 10-27-2024 Albumin [Mass/Vol] 3.5 g/dL Normal 3.5-5.0 [facility] Comment on above: Performed By: #### L 500.4050 #### [facility] Laboratory [address] [place], [place], [address] Albumin/Globulin [Mass ratio] 1.1 {ratio} Normal 0.9-2.4 [facility] Comment on above: Performed By: #### L 500.4050 #### [facility] [address] [place], [address] ALK PHOS 81 U/L Normal 35-104 [facility] Comment on above: Performed By: #### L 500.4050 #### [facility] [address] [place], [address] ALT [Catalytic activity/Vol] 19 U/L Normal <=34 [facility] Comment on above: Performed By: #### L 500.4050 #### [facility] [address] [place], [address] AST [Catalytic activity/Vol] 18 U/L Normal <=31 [facility] Comment on above: Performed By: #### L 500.4050 #### [facility] [address] [place], [address] Bilirubin [Mass/Vol] 0.17 mg/dL Normal 0.00-1.30 [facility] Comment on above: Performed By: #### L 500.4050 #### [facility] [address] [place], [address] BUN/CRE 16.7 RATIO Normal 10-20 [facility] Comment on above: Performed By: #### L 500.4050 #### [facility] [address] [place], [address] Calcium [Mass/Vol] 9.3 mg/dL Normal 7.6-11.0 [facility] Comment on above: Performed By: #### L 500.4050 #### [facility] [address] [place], [address] Chloride [Moles/Vol] 104 mmol/L Normal 98-108 [facility] Comment on above: Performed By: #### L 500.4050 #### [facility] [address] [place], [address] CO2 [Moles/Vol] 19.6 mmol/L Low 21.0-32.0 [facility] Comment on above: Performed By: #### L 500.4050 #### [facility] [address] [place], [address] Creatinine [Mass/Vol] 0.68 mg/dL Low 0.70-1.20 [facility] Comment on above: Performed By: #### L 500.4050 #### [facility] [address] [place], [address] GAP 14 Normal 5-15 [facility] Comment on above: Performed By: #### L 500.4050 #### [facility] [address] [place], [address] GFR/1.73 sq M.predicted among non-blacks MDRD (S/P/Bld) [Vol rate/Area] 124 mL/min/{1.73_m2} Normal >60 [facility] Comment on above: Result Comment: mL/m in/1.73m2 CKD-EPI Creatinine Equation (2020) Performed By: #### L 500.4050 #### [facility] [address] [place], [address] Globulin (S) [Mass/Vol] 3.1 g/dL Normal 2.2-4.2 [facility] Comment on above: Performed By: #### L 500.4050 #### [facility] [address] [place], [address] Glucose [Mass/Vol] 89 mg/dL Normal 70-99 [facility] Comment on above: Performed By: #### L 500.4050 #### [facility] [address] [place] [place], [address] Potassium [Moles/Vol] 3.7 mmol/L Normal 3.3-5.1 [facility] Comment on above: Performed By: #### L 500.4050 #### [facility] [address] [place], [place], [id number] Sodium [Moles/Vol] 137 mmol/L Normal 133-145 [facility] Comment on above: Performed By: #### L 500.4050 #### [facility] [address] [place], [place], [id number] T PROT 6.6 g/dL Normal 5.9-8.4 [facility] Comment on above: Performed By: #### L 500.4050 #### [facility] [address] [place], [place], [address] Urea nitrogen [Mass/Vol] 11 mg/dL Normal 4-19 [facility] Comment on above: Performed By: #### L 500.4050 #### [facility] [address] [place], [place], [id number] Erythrocyte distribution wid th ratioOrdered By: Susan Coburn on 10-27-2024 Erythrocyte distribution width (RBC) [Ratio] 13.0 % 11.6-14.6 [facility] Erythrocyte distribution wid th standard deviationOrdered By: Susan Coburn on 10-27-2024 Erythrocyte distribution width (RBC) [Ratio] 42.5 fl 35.1-43.9 [facility] Glomerular filtration rate ( GFR) estimation/1.73 sq m using serum, plasma, or whole bOrdered By: Jennifer Willard on 10-27-2024 GFR/1.73 sq M.predicted among non-blacks MDRD (S/P/Bld) [Vol rate/Area] 124 mL/min/{1.73_m2} >60 [facility] Comment on above: mL/min/1.73m2 CKD-EP I Creatinine Equation (2020) HIVon 10-27-2024 HIV Non-Reactive Normal Nonreactive [facility] Comment on above: Result Comment: Non- Reactive Reactive Repeatedly reactive samples must be confirmed according to CDC recommended confirmatory algorithms. The subresults for either HIVAG or AHIV can be used as an aid in the selection of the confirmation algorithm for reactive samples. Send out specimens with Reactive results to [facility] for confirmation. Order the HIV antibody detection and differentiation: #[id number] Performed By: #### L 100.0100, L509.8002, L3890.6006 #### [facility] [address] [place], [address] Hematocrit Auto (Bld) [Volum e fraction]Ordered By: Susan Coburn on 10-27-2024 Hematocrit (Bld) [Volume fraction] 36.7 % Low 37-47 [facility] Hemoglobin measurementOrdere d By: Susan Coburn on 10-27-2024 Hemoglobin (Bld) [Mass/Vol] 12.2 g/dL 12.0-15.0 [facility] Laboratory - Chemistry and C hemistry - challengeOrdered By: Jennifer Willard on 10-27-2024 AST [Catalytic activity/Vol] 18 U/L <32 [facility] Laboratory - Chemistry and C hemistry - challengeOrdered By: Susan Coburn on 10-27-2024 Glucose Ql (U) Negative [facility] Laboratory - UrinalysisOrder ed By: Susan Coburn on 10-27-2024 Protein Ql (U) Negative [facility] MCV (mean corpuscular volume ) determinationOrdered By: Susan Coburn on 10-27-2024 MCV (RBC) [Entitic vol] 90.2 fL 81-99 [facility] Mean corpuscular hemoglobin (MCH) determinationOrdered By: Susan Coburn on 10-27-2024 MCH (RBC) [Entitic mass] 30.0 pg 27.0-32.0 [facility] Mean corpuscular hemoglobin concentration (MCHC) determinationOrdered By: Susan Coburn on 10-27-2024 MCHC (RBC) [Mass/Vol] 33.2 g/dL 32-36 [facility] Mean platelet volume determi nationOrdered By: Susan Coburn on 10-27-2024 Platelet mean volume (Bld) [Entitic vol] 11.3 fL 6.2-12.0 [facility] Myelocyte %Ordered By: Fátima Coburn on 10-27-2024 Myelocytes/100 WBC (Bld) 4 % High 0-0 [facility] No Panel InformationOrdered By: Susan Coburn on 10-27-2024 HIV (1&2) Antibody Non-Reactive Nonreactive [facility] Comment on above: Non-ReactiveReactive Repeatedly reactive samples must be confirmed according to CDC recommended confirmatory algorithms. The subresults for either HIVAG or AHIV can be used as an aid in the selection of the confirmation algorithm for reactive samples.Send out specimens with Reactive results to [facility] for confirmation.Order the HIV antibody detection and differentiation: #[id number] Research Laboratory Technician Office Visit Reporton 10-27-2024 Research Laboratory Technician Office Visit Report [facility] [address], [address] [place] [address] OFFICE VISIT Date of Service: 10/27/24 MR#: [id number] Acct: [id number] Name: LUCIANO KENDALL Rep #: [id number] : 2000 Provider: ANY dykes Age/Sex: 24/F Location: [facility] Status: Signed Intake Vital Signs 09/01/24 15:04 09/28/24 14:56 10/27/24 13:27 10/27/24 13:28 Height 5 ft 8 in 5 ft 8 in 5 ft 8 in 5 ft 8 in Weight: 262 lb 265 lb 4 oz BMI 39.8 40.3 BP 122/76 H 133/87 H Intake Visit Reasons: 30wk ob Static Balancer Required: No Is patient in pain?: No Allergies No Known Allergies Allergy (Verified 10/27/24 13:26) Medications ???Medication ???Instructions ???Recorded ???Confirmed ???Type Bacillus coagulans 250 million 2 tab PO ONCE 05/26/24 10/27/24 Hi story cell chewable tablet (Probiotic (B. coagulans)) PNV 153-FA 400 mcg-om3 35 mg-dha tab PO 05/26/24 10/27/24 History 25 mg-epa 5 mg-fish oil chew tablet ascorbate calcium (vitamin C) 500 500 mg PO QDAY 05/26/24 10/27/24 History mg tablet ferrous sulfate 137 mg (45 mg 137 mg PO QDAY 05/26/24 10/27/24 H istory iron) tablet,extended release (Slow Fe) ondansetron 4 mg disintegrating 4 mg PO Q4H PRN nausea and 5 10/27/24 Rx tablet vomiting #60 tabs amoxicillin 875 mg tablet 875 mg PO BID #20 tabs 09/28/24 Rx Last Menstrual Period: 04/01/24 Zika: Zika virus screening: Negative : No PFSH PFSH Medical History Congenital nahhup-ainhnrh-oltph reflux Gallstones UTI (urinary tract infection) Asthma Surgical History Hx of cholecystectomy Hx of tonsillectomy Family History Father Diabetes Type 1 Aunt Thyroid disorder Maternal Mother Thyroid disorder enlarged Grandmother Breast cancer Paternal Social History adopted: No household members: significant other 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al status: employed 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 OB Visit TERRENCE Calculator Estimated Delivery Date Method Current WG Current Estimate 01/06/25 LMP (Certain) 29w 6d Other Estimates 01/09/25 Ultrasound #1 29w 3d Expected Delivery Route/Plan Labor Preferences- CB/BF classes: encouraged labor support person: Wesley labor intervention preferences: epidural pain management options preferred: [] cut cord/dad catch: maybe cord : yes PP control planned: discussed discussed possible routes of delivery and associated risks: [] special requests: [] Specific Issue/Plans Covid status: [] Flu vaccine: [] Tdap vaccine: 10/27/24 Rhogam: NA LARC form signed: yes Problem [...] ??-???- 175 -???-???-???-???-???- ???-???-???-???-???-? ??-???- KW- CRL (more content not included)... Normal [facility] Platelet countOrdered By: Jamel Coburn on 10-27-2024 Platelets (Bld) [#/Vol] 204 10*3/uL 150-450 [facility] Platelet estimateOrdered By: Susan Coburn on 10-27-2024 Platelets LM Ql (Bld) ADEQUATE ADEQ [facility] Potassium measurement (mass/ volume)Ordered By: Jennifer Willard on 10-27-2024 Potassium (Unsp spec) [Mass/Vol] 3.7 mmol/L 3.3-5.1 [facility] Protein+Creatinine Ratio,Uri neon 10-27-2024 PROT:CRE RATIO UNABLE TO CALCULATE Normal 0-200 [facility] Comment on above: Performed By: #### M 100.2200, L100.0100 #### [facility] [address] [place], [address] PROTEIN,UR.RAN. < 6.0 Normal 0.0-12.0 [facility] Comment on above: Performed By: #### M 100.2200, L100.0100 #### [facility] [address] [place], [address] UR CREAT 42.10 mg/dL Normal 28.00-217.00 [facility] Comment on above: Performed By: #### M 100.2200, L100.0100 #### [facility] [address] [place], [address] RBC Auto (Bld) [#/Vol]Ordere d By: Susan Coburn on 10-27-2024 RBC (Bld) [#/Vol] 4.07 10*6/uL Low 4.2-5.4 [facility] Random urine creatinine mika urement (mass/volume)Ordered By: Jennifer Willard on 10-27-2024 Creatinine Unsp time (U) [Mass/Vol] 42.10 mg/dL 28.00-217.00 [facility] Review by pathologistOrdered By: Susan Coburn on 10-27-2024 Pathologist review Gutierrez (Unsp spec) [Interp] Bailey faustin [facility] Pathologist review Gutierrez (Unsp spec) [Interp] Reviewed [facility] Comment on above: Previous reported re sult: Bailey faustin Edited by: WALKER on 11/18/24:1111SEE REPORT IN PATIENT'S EMR AMENDED REPORT 11/18/24 1111 PATH REV previously reported as: Bailey faustin Serum creatinine measurement (mass/volume)Ordered By: Jennifer Willard on 10-27-2024 Creatinine [Mass/Vol] 0.68 mg/dL Low 0.70-1.20 [facility] Serum globulin measurementOr dered By: Jennifer Willard on 10-27-2024 Globulin (S) [Mass/Vol] 3.1 g/dL 2.2-4.2 [facility] Serum glucose measurement (m ass/volume)Ordered By: Jennifer Willard on 10-27-2024 Glucose [Mass/Vol] 89 mg/dL 70-99 [facility] Serum or plasma alanine terrazas otransferase (ALT) measurementOrdered By: Jennifer Willard on 10-27-2024 ALT [Catalytic activity/Vol] 19 U/L <35 [facility] Serum or plasma albumin mika urement (mass/volume)Ordered By: Jennifer Willard on 10-27-2024 Albumin [Mass/Vol] 3.5 g/dL 3.5-5.0 [facility] Serum or plasma albumin/glob ulin mass ratioOrdered By: Jennifer Willard on 10-27-2024 Albumin/Globulin [Mass ratio] 1.1 {ratio} 0.9-2.4 [facility] Serum or plasma alkaline lebron sphatase measurementOrdered By: Jennifer Willard on 10-27-2024 ALP [Catalytic activity/Vol] 81 U/L 35-104 [facility] Serum or plasma calcium mika urement (mass/volume)Ordered By: Jennifer Willard on 10-27-2024 Calcium [Mass/Vol] 9.3 mg/dL 7.6-11.0 [facility] Serum or plasma urea nitroge n measurement (mass/volume)Ordered By: Jennifer Willard on 10-27-2024 Urea nitrogen [Mass/Vol] 11 mg/dL 4-19 [facility] Sodium levelOrdered By: Constantine Willard on 10-27-2024 Sodium [Moles/Vol] 137 mmol/L 133-145 [facility] Syphilis Antibodieson 2024 Syphilis Abs Non-Reactive Normal Nonreactive [facility] Comment on above: Performed By: #### L 100.0100, L509.8002, L3890.6006 #### [facility] [address] [place], [place], [id number] Total cell countOrdered By: Susan Coburn on 10-27-2024 Cells counted Molgen (Bld/Tiss) [#] 100 MANUAL DIFF [facility] Total proteinOrdered By: Merlin Willard on 10-27-2024 Protein [Mass/Vol] 6.6 g/dL 5.9-8.4 [facility] Urine protein measurement (m ass/volume)Ordered By: Jennifer Willard on 10-27-2024 Protein (U) [Mass/Vol] mg/dL 0.0-12.0 [facility] Urine protein/creatinine mas s ratioOrdered By: Jennifer Willard on 10-27-2024 Protein/Creatinine (U) [Mass ratio] UNABLE TO CALCULATE mg/g CRE 0-200 [facility] White blood cell (WBC) count Ordered By: Susan Coburn on 10-27-2024 WBC (Bld) [#/Vol] 18.7 10*3/uL High 4.4-11.0 [facility] Glucose Challenge Gest 1H 50 anthony 10-10-2024 GLU GEST 50g 1H 110 mg/dL Normal 70-140 [facility] Comment on above: Performed By: #### L 501.0250 #### [facility] [address] [place], [address] Glucose measurement at 2 shakila rs post-dose gestational glucose tolerance testOrdered By: Susan Coburn on 10-10-2024 Glucose [Mass/Vol] 110 mg/dL 70-140 [facility] Laboratory - Chemistry and C hemistry - challengeOrdered By: Jennifer Willard on 09-28-2024 Glucose Ql (U) Negative [facility] Laboratory - UrinalysisOrder ed By: Jennifer Willard on 09-28-2024 Protein Ql (U) Negative [facility] Research Laboratory Technician Office Visit Reporton 09-28-2024 Research Laboratory Technician Office Visit Report [facility] [address], [address] [place] [address] OFFICE VISIT Date of Service: 09/28/24 MR#: [id number] Acct: [id number] Name: LUCIANO KENDALL Rep #: [id number] : 2000 Provider: ANY dykes Age/Sex: 24/F Location: [facility] Status: Signed Intake Vital Signs 09/01/24 15:04 09/28/24 07:30 09/28/24 14:56 Height 5 ft 8 in 5 ft 8 in 5 ft 8 in Weight: 262 lb BMI 39.8 BP 122/76 H Intake Visit Reasons: 26wk ob Chief Complaint: 26 Week OB Static Balancer Required: No Is patient in pain?: No [...] : No PFSH PFSH Medical History Congenital edokoj-tecvfhz-zjwkt reflux Gallstones UTI (urinary tract infection) Asthma Surgical History Hx of cholecystectomy Hx of tonsillectomy Family History Father Diabetes Type 1 Aunt Thyroid disorder Maternal Mother Thyroid disorder enlarged Grandmother Breast cancer Paternal Social History adopted: No household members: significant other 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al status: employed 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 acce (more content not included)... Normal [facility] Urgent Care Visit Reporton 0 09-28-2024 Urgent Care Visit Report [facility] [address], [address] [place] [address] OFFICE VISIT Date of Service: 09/28/24 MR#: [id number] Acct: [id number] Name: LUCIANO KENDALL Rep #: [id number] : 2000 Provider: CLAUDETTE Farmer Age/Sex: 24/F Location: [facility] [place] Status: Signed Intake Vital Signs 09/01/24 15:04 [...] Patient lost her voice on Sat night. 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 Normal [facility] Laboratory - Chemistry and C hemistry - challengeOrdered By: Susan Coburn on 09-01-2024 Glucose Ql (U) Negative [facility] Laboratory - UrinalysisOrder ed By: Susan Coburn on 09-01-2024 Protein Ql (U) Negative [facility] Research Laboratory Technician Office Visit Reporton 09-01-2024 Research Laboratory Technician Office Visit Report [facility], [address] [place] [address] OFFICE VISIT Date of Service: 09/01/24 MR#: [id number] Acct: [id number] Name: LUCIANO KENDALL Rep #: [id number] : 2000 Provider: Dr. Susan Lau DO Age/Sex: 24/F Location: [facility] Status: Signed Intake Vital Signs 07/07/24 15:11 08/04/24 10:40 09/01/24 15:02 09/01/24 15:04 Height 5 ft 8 in 5 ft 8 in 5 ft 8 in 5 ft 8 in Weight: 246 lb 2 oz BMI 37.4 BP 125/81 H Intake Visit Reasons: 22 wk ob Static Balancer Required: No Is patient in pain?: No [...] : No PFSH PFSH Medical History Congenital dmfmsl-ldqvcvo-esujk reflux Gallstones UTI (urinary tract infection) Asthma Surgical History Hx of cholecystectomy Hx of tonsillectomy Family History Father Diabetes Type 1 Aunt Thyroid disorder Maternal Mother Thyroid disorder enlarged Grandmother Breast cancer Paternal Social History adopted: No household members: significant other 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al status: employed 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 Normal [facility] OB Anatomy w/ Transvaginalon 08-19-2024 OB Anatomy w/ Transvaginal [facility] Imaging Services [address] [place] [address] OB Anatomy w/ Transvaginal MR#: [id number] Acct: [id number] Name: LUCIANO KENDALL Rep #: [id number] : 2000 F 24 From: Kermit griffin MD PCP: Dr. Donald Waller MD Status: [facility] Study: OB Anatomy w/ Transvaginal Date of Exam: 08/19 Exam# [id number] Ordering Dr: Nita Mcintosh PROCEDURE: OB ANATOMY [...] 19 weeks and 4 days. Reading Location: [place] [address] CC: Dr. Donald Waller MD; Dr. Nita Mcintosh MD Management Psychologist: Signed Normal [facility] Absolute lymphocyte countOrd ered By: Jennifer Willard on 08-04-2024 Lymphocytes Auto (Unsp spec) [#/Vol] 2.39 10*3/uL 0.83-4.51 [facility] Absolute neutrophil countOrd ered By: Jennifer Willard on 08-04-2024 Neutrophils (Bld) [#/Vol] 9.9 10*3/uL High 2.0-7.7 [facility] Anion gap in Serum or Plasma Ordered By: Jennifer Willard on 08-04-2024 Anion gap [Moles/Vol] 10 mmol/L 5-15 [facility] Automated lymphocyte count a s percentage of total leukocytesOrdered By: Jennifer Willard on 08-04-2024 Lymphocytes/100 WBC Auto (Unsp spec) 17.6 % Low 19-41 [facility] BUN/creatinine ratioOrdered By: Jennifer Willard on 08-04-2024 Urea nitrogen/Creatinine [Mass ratio] 12.9 mg/mg 10-20 [facility] Basophil percentageOrdered B y: Jennifer Willard on 08-04-2024 Basophils/100 WBC (Bld) 0.5 % 0-1 [facility] Bilirubin, totalOrdered By: Jennifer Willard on 08-04-2024 Bilirubin [Mass/Vol] 0.33 mg/dL 0.00-1.30 [facility] CBC W/Diff, Automatedon 04- Absolute Lymph 2.39 X10 3/uL Normal 0.83-4.51 [facility] Comment on above: Order Comment: ADD O N Performed By: #### M 100.2200, L100.0100 #### [facility] Laboratory [address] [place], [address] Absolute Neut 9.9 X10 3/uL High 2.0-7.7 [facility] Comment on above: Order Comment: ADD O N Performed By: #### M 100.2200, L100.0100 #### [facility] Laboratory [address] [place], [address] Basophils/100 WBC (Bld) 0.5 % Normal 0-1 [facility] Comment on above: Order Comment: ADD O N Performed By: #### M 100.0, L100.0100 #### [facility] Laboratory [address] [place], [address] Eosinophils/100 WBC (Bld) 0.7 % Normal 0-5 [facility] Comment on above: Order Comment: ADD O N Performed By: #### M 100.2200, L100.0100 #### [facility] Laboratory [address] [place], [address] Erythrocyte distribution width (RBC) [Ratio] 13.4 % Normal 11.6-14.6 [facility] Comment on above: Order Comment: ADD O N Performed By: #### M 100.2200, L100.0100 #### [facility] Laboratory [address] [place], [address] Hematocrit (Bld) [Volume fraction] 39.8 % Normal 37-47 [facility] Comment on above: Order Comment: ADD O N Performed By: #### M 100.2200, L100.0100 #### [facility] Laboratory [address] [place], [address] Hemoglobin (Bld) [Mass/Vol] 13.2 g/dL Normal 12.0-15.0 [facility] Comment on above: Order Comment: ADD O N Performed By: #### M 100.0, L100.0100 #### [facility] [address] [place], [address] IG% 2.300 High 0.0-0.9 [facility] Comment on above: Order Comment: ADD O N Result Comment: IG% - Immature Granulocytes (promyelocytes, myelocytes and metamyelocytes) > 1% indicates that a LEFT SHIFT is Present. Performed By: #### M 100.0, L100.0100 #### [facility] Laboratory [address] [place], [address] Lymphocytes/100 WBC (Bld) 17.6 % Low 19-41 [facility] Comment on above: Order Comment: ADD O N Performed By: #### M 100.2199, L100.0100 #### [facility] [address] [place], [address] MCH (RBC) [Entitic mass] 29.9 pg Normal 27.0-32.0 [facility] Comment on above: Order Comment: ADD O N Performed By: #### M 100.0, L100.0100 #### [facility] [address] [place], [address] MCHC (RBC) [Mass/Vol] 33.2 g/dL Normal 32-36 [facility] Comment on above: Order Comment: ADD O N Performed By: #### M 100.2200, L100.0100 #### [facility] [address] [place], [address] MCV (RBC) [Entitic vol] 90.0 fL Normal 81-99 [facility] Comment on above: Order Comment: ADD O N Performed By: #### M 100.0, L100.0100 #### [facility] [address] [place], [address] Monocytes/100 WBC (Bld) 5.8 % Normal 0-10 [facility] Comment on above: Order Comment: ADD O N Performed By: #### M 100.2199, L100.0100 #### [facility] [address] [place], [address] Neutrophils/100 WBC (Bld) 73.1 % High 47-70 [facility] Comment on above: Order Comment: ADD O N Performed By: #### M 100.2199, L100.0100 #### [facility] Laboratory [address] [place], [address] Nucleated RBC (Bld) [#/Vol] 0 10*3/uL Normal 0-5 [facility] Comment on above: Order Comment: ADD O N Performed By: #### M , L100.0100 #### [facility] Laboratory [address] [place], [address] Platelet mean volume (Bld) [Entitic vol] 11.6 fL Normal 6.2-12.0 [facility] Comment on above: Order Comment: ADD O N Performed By: #### M .2199, L100.0100 #### [facility] Laboratory [address] [place], [address] Platelets (Bld) [#/Vol] 213 10*3/uL Normal 150-450 [facility] Comment on above: Order Comment: ADD O N Performed By: #### M 100.0, L100.0100 #### [facility] Laboratory [address] [place], [address] RBC (Bld) [#/Vol] 4.42 10*6/uL Normal 4.2-5.4 [facility] Comment on above: Order Comment: ADD O N Performed By: #### M 100.2200, L100.0100 #### [facility] [address] [place], [address] RDW SD 43.9 fl Normal 35.1-43.9 [facility] Comment on above: Order Comment: ADD O N Performed By: #### M 100.2200, L100.0100 #### [facility] [address] [place], [address] WBC (Bld) [#/Vol] 13.6 10*3/uL High 4.4-11.0 [facility] Comment on above: Order Comment: ADD O N Performed By: #### M 100.2200, L100.0100 #### [facility] [address] [place], [address] Carbon dioxide, total [Moles /volume] in Central venous bloodOrdered By: Jennifer Willard on 08-04-2024 CO2 [Moles/Vol] 21.9 mmol/L 21.0-32.0 [facility] Chloride assayOrdered By: David Willard on 08-04-2024 Chloride [Moles/Vol] 104 mmol/L 98-108 [facility] Comprehensive Metabolic Prof ilon 08-04-2024 Albumin [Mass/Vol] 3.8 g/dL Normal 3.5-5.0 [facility] Comment on above: Performed By: #### L 500.4050, L501.0900 #### [facility] [address] [place], [address] Albumin/Globulin [Mass ratio] 1.2 {ratio} Normal 0.9-2.4 [facility] Comment on above: Performed By: #### L 500.4050, L501.0900 #### [facility] [address] [place], [address] ALK PHOS 52 U/L Normal 35-104 [facility] Comment on above: Performed By: #### L 500.4050, L501.0900 #### [facility] [address] [place], [address] ALT [Catalytic activity/Vol] 38 U/L High <=34 [facility] Comment on above: Performed By: #### L 500.4050, L501.0900 #### [facility] [address] [place], [address] AST [Catalytic activity/Vol] 22 U/L Normal <=31 [facility] Comment on above: Performed By: #### L 500.4050, L501.0900 #### [facility] [address] [place], [address] Bilirubin [Mass/Vol] 0.33 mg/dL Normal 0.00-1.30 [facility] Comment on above: Performed By: #### L 500.4050, L501.0900 #### [facility] [address] [place], [address] BUN/CRE 12.9 RATIO Normal 10-20 [facility] Comment on above: Performed By: #### L 500.4050, L501.0900 #### [facility] [address] [place], [address] Calcium [Mass/Vol] 9.3 mg/dL Normal 7.6-11.0 [facility] Comment on above: Performed By: #### L 500.4050, L501.0900 #### [facility] [address] [place], [address] Chloride [Moles/Vol] 104 mmol/L Normal 98-108 [facility] Comment on above: Performed By: #### L 500.4050, L501.0900 #### [facility] [address] [place], [address] CO2 [Moles/Vol] 21.9 mmol/L Normal 21.0-32.0 [facility] Comment on above: Performed By: #### L 500.4050, L501.0900 #### [facility] [address] [place], [address] Creatinine [Mass/Vol] 0.79 mg/dL Normal 0.70-1.20 [facility] Comment on above: Performed By: #### L 500.4050, L501.0900 #### [facility] [address] [place], [address] GAP 10 Normal 5-15 [facility] Comment on above: Performed By: #### L 500.4050, L501.0900 #### [facility] [address] [place], [address] GFR/1.73 sq M.predicted among non-blacks MDRD (S/P/Bld) [Vol rate/Area] 106 mL/min/{1.73_m2} Normal >60 [facility] Comment on above: Result Comment: mL/m in/1.73m2 CKD-EPI Creatinine Equation (2020) Performed By: #### L 500.4050, L501.0900 #### [facility] [address] [place], [address] Globulin (S) [Mass/Vol] 3.1 g/dL Normal 2.2-4.2 [facility] Comment on above: Performed By: #### L 500.4050, L501.0900 #### [facility] [address] [place], [address] Glucose [Mass/Vol] 91 mg/dL Normal 70-99 [facility] Comment on above: Performed By: #### L 500.4050, L501.0900 #### [facility] [address] [place], [address] Potassium [Moles/Vol] 4.1 mmol/L Normal 3.3-5.1 [facility] Comment on above: Performed By: #### L 500.4050, L501.0900 #### [facility] [address] [place], [address] Sodium [Moles/Vol] 136 mmol/L Normal 133-145 [facility] Comment on above: Performed By: #### L 500.4050, L501.0900 #### [facility] [address] [place], [address] T PROT 6.9 g/dL Normal 5.9-8.4 [facility] Comment on above: Performed By: #### L 500.4050, L501.0900 #### [facility] [address] [place], [address] Urea nitrogen [Mass/Vol] 10 mg/dL Normal 4-19 [facility] Comment on above: Performed By: #### L 500.4050, L501.0900 #### [facility] [address] [place], [address] Creatinine Unsp time (U) [Ma ss/Vol]Ordered By: Jennifer Willard on 08-04-2024 Creatinine (U) [Mass/Vol] 169.00 mg/dL 28.00-217.00 [facility] Eosinophil percentageOrdered By: Jennifer Willard on 08-04-2024 Eosinophils/100 WBC (Bld) 0.7 % 0-5 [facility] Erythrocyte distribution wid th (RBC) [Ratio]Ordered By: Jennifer Willard on 08-04-2024 Erythrocyte distribution width (RBC) [Entitic vol] 43.9 fL 35.1-43.9 [facility] Erythrocyte distribution wid th ratioOrdered By: Jennifer Willard on 08-04-2024 Erythrocyte distribution width (RBC) [Ratio] 13.4 % 11.6-14.6 [facility] Erythrocyte distribution wid th standard deviationOrdered By: Jennifer Willard on 08-04-2024 Erythrocyte distribution width (RBC) [Ratio] 43.9 fl 35.1-43.9 [facility] GFR/1.73 sq M.predicted keisha g non-blacks MDRD (S/P/Bld) [Vol rate/Area]Ordered By: Jennifer Willard on 08-04-2024 Estimated GFR (MDRD) Non-Af Amer 106 >60 [facility] Comment on above: mL/min/1.73m2 CKD-EP I Creatinine Equation (2020) Glomerular filtration rate ( GFR) estimation/1.73 sq m using serum, plasma, or whole bOrdered By: Jennifer Willard on 08-04-2024 GFR/1.73 sq M.predicted among non-blacks MDRD (S/P/Bld) [Vol rate/Area] 106 mL/min/{1.73_m2} >60 [facility] Comment on above: mL/min/1.73m2 CKD-EP I Creatinine Equation (2020) Hematocrit Auto (Bld) [Volum e fraction]Ordered By: Jennifer Willard on 08-04-2024 Hematocrit (Bld) [Volume fraction] 39.8 % 37-47 [facility] Hemoglobin measurementOrdere d By: Jennifer Willard on 08-04-2024 Hemoglobin (Bld) [Mass/Vol] 13.2 g/dL 12.0-15.0 [facility] Immature granulocytes/100 WB C Auto (Bld)Ordered By: Jennifer Willard on 08-04-2024 Immature granulocytes/100 WBC (Bld) 2.300 % High 0.0-0.9 [facility] Comment on above: IG% - Immature Granu locytes (promyelocytes, myelocytes and metamyelocytes) > 1% indicates that a LEFT SHIFT is Present. Laboratory - Chemistry and C hemistry - challengeOrdered By: Jennifer Willard on 08-04-2024 AST [Catalytic activity/Vol] 22 U/L <32 [facility] Lymphocytes Auto (Unsp spec) [#/Vol]Ordered By: Jennifer Willard on 08-04-2024 Lymphocytes (Bld) [#/Vol] 2.39 10*3/uL 0.83-4.51 [facility] Lymphocytes/100 WBC Auto (Un sp spec)Ordered By: Jennifer Willard on 08-04-2024 Lymphocytes/100 WBC (Bld) 17.6 % Low 19-41 [facility] MCV (mean corpuscular volume ) determinationOrdered By: Jennifer Willard on 08-04-2024 MCV (RBC) [Entitic vol] 90.0 fL 81-99 [facility] Mean corpuscular hemoglobin (MCH) determinationOrdered By: Jennifer Willard on 08-04-2024 MCH (RBC) [Entitic mass] 29.9 pg 27.0-32.0 [facility] Mean corpuscular hemoglobin concentration (MCHC) determinationOrdered By: Jennifer Willard on 08-04-2024 MCHC (RBC) [Mass/Vol] 33.2 g/dL 32-36 [facility] Mean platelet volume determi nationOrdered By: Jennifer Willard on 08-04-2024 Platelet mean volume (Bld) [Entitic vol] 11.6 fL 6.2-12.0 [facility] Monocyte percentageOrdered B y: Jennifer Willard on 08-04-2024 Monocytes/100 WBC (Bld) 5.8 % 0-10 [facility] Neutrophil percentageOrdered By: Jennifer Willard on 08-04-2024 Neutrophils/100 WBC (Bld) 73.1 % High 47-70 [facility] Nucleated red blood cell per centageOrdered By: Jennifer Willard on 08-04-2024 Nucleated RBC/100 WBC (Bld) [Ratio] 0 % 0-5 [facility] Research Laboratory Technician Office Visit Reporton 08-04-2024 Research Laboratory Technician Office Visit Report [facility] [address], [address] [place] [address] OFFICE VISIT Date of Service: 08/04/24 MR#: [id number] Acct: [id number] Name: LUCIANO KENDALL Rep #: [id number] : 2000 Provider: ANY dykes Age/Sex: 24/F Location: [facility] Status: Signed Intake Vital Signs 07/07/24 15:11 08/04/24 10:40 Height 5 ft 8 in 5 ft 8 in Weight: 235 lb 6 oz BMI 35.8 BP 124/82 H Intake Visit Reasons: 18 wk ob Chief Complaint: 18 Week OB Static Balancer Required: No Is patient in pain?: No [...] Zika: Zika virus screening: Negative : No [facility] Medical History (Updated 08/04/24 @ 11:10 by Jennifer Willard PATHOLOGY SECRETARY, PATHOLOGY SECRETARY-C) Congenital weccqx-ewcjqkn-qlpvt reflux Gallstones UTI (urinary tract infection) Asthma Surgical History Hx of cholecystectomy Hx of tonsillectomy Family History Father Diabetes Type 1 Aunt Thyroid disorder Maternal Mother Thyroid disorder enlarged Grandmother Breast cancer Paternal Social History adopted: No household members: significant other 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al status: employed 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 Normal [facility] Platelet countOrdered By: David Willard on 08-04-2024 Platelets (Bld) [#/Vol] 213 10*3/uL 150-450 [facility] Potassium (Unsp spec) [Mass/ Vol]Ordered By: Jennifer Willard on 08-04-2024 Potassium [Moles/Vol] 4.1 mmol/L 3.3-5.1 [facility] Potassium measurement (mass/ volume)Ordered By: Jennifer Willard on 08-04-2024 Potassium (Unsp spec) [Mass/Vol] 4.1 mmol/L 3.3-5.1 [facility] Protein+Creatinine Ratio,Uri neon 08-04-2024 PROT:CRE RATIO 68 mg/g CRE Normal 0-200 [facility] Comment on above: Performed By: #### L 500.4050, L501.0900 #### [facility] Laboratory [address] [place], [address] Protein (U) [Mass/Vol] 11.5 mg/dL Normal 0.0-12.0 [facility] Comment on above: Performed By: #### L 500.4050, L501.0900 #### [facility] [address] [place], [address] UR CREAT 169.00 mg/dL Normal 28.00-217.00 [facility] Comment on above: Performed By: #### L 500.4050, L501.0900 #### [facility] [address] [place], [address] Protein/Creatinine (U) [Mass ratio]Ordered By: Jennifer Willard on 08-04-2024 Urine Protein/Creatinine Ratio 68 mg/g CRE 0-200 [facility] RBC Auto (Bld) [#/Vol]Ordere d By: Jennifer Willard on 08-04-2024 RBC (Bld) [#/Vol] 4.42 10*6/uL 4.2-5.4 [facility] Random urine creatinine mika urement (mass/volume)Ordered By: Jennifer Willard on 08-04-2024 Creatinine Unsp time (U) [Mass/Vol] 169.00 mg/dL 28.00-217.00 [facility] Serum creatinine measurement (mass/volume)Ordered By: Jennifer Willard on 08-04-2024 Creatinine [Mass/Vol] 0.79 mg/dL 0.70-1.20 [facility] Serum globulin measurementOr dered By: Jennifer Willard on 08-04-2024 Globulin (S) [Mass/Vol] 3.1 g/dL 2.2-4.2 [facility] Serum glucose measurement (m ass/volume)Ordered By: Jennifer Willard on 08-04-2024 Glucose [Mass/Vol] 91 mg/dL 70-99 [facility] Serum or plasma alanine terrazas otransferase (ALT) measurementOrdered By: Jennifer Willard on 08-04-2024 ALT [Catalytic activity/Vol] 38 U/L High <35 [facility] Serum or plasma albumin mika urement (mass/volume)Ordered By: Jennifer Willard on 08-04-2024 Albumin [Mass/Vol] 3.8 g/dL 3.5-5.0 [facility] Serum or plasma albumin/glob ulin mass ratioOrdered By: Jennifer Willard on 08-04-2024 Albumin/Globulin [Mass ratio] 1.2 {ratio} 0.9-2.4 [facility] Serum or plasma alkaline lebron sphatase measurementOrdered By: Jennifer Willard on 08-04-2024 ALP [Catalytic activity/Vol] 52 U/L 35-104 [facility] Serum or plasma calcium mika urement (mass/volume)Ordered By: Jennifer Willard on 08-04-2024 Calcium [Mass/Vol] 9.3 mg/dL 7.6-11.0 [facility] Serum or plasma urea nitroge n measurement (mass/volume)Ordered By: Jennifer Willard on 08-04-2024 Urea nitrogen [Mass/Vol] 10 mg/dL 4-19 [facility] Sodium levelOrdered By: Constantine Willard on 08-04-2024 Sodium [Moles/Vol] 136 mmol/L 133-145 [facility] Total proteinOrdered By: Merlin Willard on 08-04-2024 Protein [Mass/Vol] 6.9 g/dL 5.9-8.4 [facility] Urine protein measurement (m ass/volume)Ordered By: Jennifer Willard on 08-04-2024 Protein (U) [Mass/Vol] 11.5 mg/dL 0.0-12.0 [facility] Urine protein/creatinine mas s ratioOrdered By: Jennifer Willard on 08-04-2024 Protein/Creatinine (U) [Mass ratio] 68 mg/g CRE 0-200 [facility] White blood cell (WBC) count Ordered By: Jennifer Willard on 08-04-2024 WBC (Bld) [#/Vol] 13.6 10*3/uL High 4.4-11.0 [facility] Absolute lymphocyte countOrd ered By: Susie Solomon on 07-07-2024 Lymphocytes Auto (Unsp spec) [#/Vol] 2.97 10*3/uL 0.83-4.51 [facility] Absolute neutrophil countOrd ered By: Susie Solomon on 07-07-2024 Neutrophils (Bld) [#/Vol] 8.9 10*3/uL High 2.0-7.7 [facility] Automated lymphocyte count a s percentage of total leukocytesOrdered By: Susie Solomon on 07-07-2024 Lymphocytes/100 WBC Auto (Unsp spec) 22.8 % 19-41 [facility] Basophil percentageOrdered B y: Susie Solomon on 07-07-2024 Basophils/100 WBC (Bld) 0.3 % 0-1 [facility] CBC W/Diff, Automatedon 06-27 Absolute Lymph 2.97 X10 3/uL Normal 0.83-4.51 [facility] Comment on above: Performed By: #### M 100.2200, L100.0100 #### [facility] Laboratory [address] [place], [address] Absolute Neut 8.9 X10 3/uL High 2.0-7.7 [facility] Comment on above: Performed By: #### M 100.2200, L100.0100 #### [facility] [address] [place], [address] Basophils/100 WBC (Bld) 0.3 % Normal 0-1 [facility] Comment on above: Performed By: #### M 100.2200, L100.0100 #### [facility] [address] [place], [address] Eosinophils/100 WBC (Bld) 1.0 % Normal 0-5 [facility] Comment on above: Performed By: #### M 100.2200, L100.0100 #### [facility] [address] [place], [address] Erythrocyte distribution width (RBC) [Ratio] 13.0 % Normal 11.6-14.6 [facility] Comment on above: Performed By: #### M 100.2200, L100.0100 #### [facility] [address] [place], [address] Hematocrit (Bld) [Volume fraction] 37.1 % Normal 37-47 [facility] Comment on above: Performed By: #### M 100.2200, L100.0100 #### [facility] [address] [place], [address] Hemoglobin (Bld) [Mass/Vol] 12.6 g/dL Normal 12.0-15.0 [facility] Comment on above: Performed By: #### M 100.2200, L100.0100 #### [facility] [address] [place], [address] IG% 1.400 High 0.0-0.9 [facility] Comment on above: Result Comment: IG% - Immature Granulocytes (promyelocytes, myelocytes and metamyelocytes) > 1% indicates that a LEFT SHIFT is Present. Performed By: #### M 100.2200, L100.0100 #### [facility] [address] [place], [address] Lymphocytes/100 WBC (Bld) 22.8 % Normal 19-41 [facility] Comment on above: Performed By: #### M 100.2200, L100.0100 #### [facility] [address] [place], [address] MCH (RBC) [Entitic mass] 29.8 pg Normal 27.0-32.0 [facility] Comment on above: Performed By: #### M 100.2200, L100.0100 #### [facility] [address] [place], [address] MCHC (RBC) [Mass/Vol] 34.0 g/dL Normal 32-36 [facility] Comment on above: Performed By: #### M 100.2200, L100.0100 #### [facility] [address] [place], [address] MCV (RBC) [Entitic vol] 87.7 fL Normal 81-99 [facility] Comment on above: Performed By: #### M 100.2200, L100.0100 #### [facility] [address] [place], [address] Monocytes/100 WBC (Bld) 6.1 % Normal 0-10 [facility] Comment on above: Performed By: #### M 100.2199, L100.0100 #### [facility] [address] [place], [address] Neutrophils/100 WBC (Bld) 68.4 % Normal 47-70 [facility] Comment on above: Performed By: #### M 100.2199, L100.0100 #### [facility] [address] [place], [address] Nucleated RBC (Bld) [#/Vol] 0 10*3/uL Normal 0-5 [facility] Comment on above: Performed By: #### M 100.2199, L100.0100 #### [facility] [address] [place], [address] Platelet mean volume (Bld) [Entitic vol] 11.3 fL Normal 6.2-12.0 [facility] Comment on above: Performed By: #### M 100.2200, L100.0100 #### [facility] [address] [place], [address] Platelets (Bld) [#/Vol] 225 10*3/uL Normal 150-450 [facility] Comment on above: Performed By: #### M 100.2200, L100.0100 #### [facility] [address] [place], [address] RBC (Bld) [#/Vol] 4.23 10*6/uL Normal 4.2-5.4 [facility] Comment on above: Performed By: #### M 100.2200, L100.0100 #### [facility] [address] [place], [address] RDW SD 41.6 fl Normal 35.1-43.9 [facility] Comment on above: Performed By: #### M 100.2200, L100.0100 #### [facility] [address] [place], [address] WBC (Bld) [#/Vol] 13.0 10*3/uL High 4.4-11.0 [facility] Comment on above: Performed By: #### M 100.2200, L100.0100 #### [facility] [address] [place], [address] Eosinophil percentageOrdered By: Susie Solomon on 07-07-2024 Eosinophils/100 WBC (Bld) 1.0 % 0-5 [facility] Erythrocyte distribution wid th ratioOrdered By: Susie Solomon on 07-07-2024 Erythrocyte distribution width (RBC) [Ratio] 13.0 % 11.6-14.6 [facility] Erythrocyte distribution wid th standard deviationOrdered By: Susie Solomon on 07-07-2024 Erythrocyte distribution width (RBC) [Entitic vol] 41.6 fL 35.1-43.9 [facility] Erythrocyte distribution width (RBC) [Ratio] 41.6 fl 35.1-43.9 [facility] HBV surface Ag Ql (S)Ordered By: Susie Solomon on 07-07-2024 Hepatitis B Surface Antigen Non-Reactive Nonreactive [facility] Comment on above: Reactive: Presumptiv e evidence of HBV. Repeatedly reactive samples must be confirmed using a neutralization test ([employer] HBsAg Confirmatory Test)Non-Reactive: HBsAg not detected; does not exclude the possibility of exposure to HBV Hematocrit Auto (Bld) [Volum e fraction]Ordered By: Susie Solomon on 07-07-2024 Hematocrit (Bld) [Volume fraction] 37.1 % 37-47 [facility] Hemoglobin A1con 07-07-2024 HbA1c (Bld) [Mass fraction] 5.1 % Low <=5.6 [facility] Comment on above: Performed By: #### M 100.2200, L100.0100 #### [facility] [address] [place], [address] Hemoglobin A1c percentageOrd ered By: Susie Solomon on 07-07-2024 HbA1c (Bld) [Mass fraction] 5.1 % Low >5.7 [facility] Hemoglobin measurementOrdere d By: Susie Solomon on 07-07-2024 Hemoglobin (Bld) [Mass/Vol] 12.6 g/dL 12.0-15.0 [facility] Hepatitis C antibodyOrdered By: Susie Solomon on 07-07-2024 Hepatitis C Antibody Non-Reactive Nonreactive [facility] Comment on above: Reactive: Presumptiv e evidence of antibodies to HCV. Follow CDC recommendations for supplemental testing.Non-Reactive: Antibodies to HCV were not detected; does not exclude the possibility of exposure to HCVReactive Results are presumptive evidence of antibodies to HCV. Follow CDC recommendations for supplemental testing.Order confirmation testing: HCV Quant by PCR testing - HCVPCR #[id number] Non Reactive: < 0.8 Equivocal: >/= 0.8 to < 1.0 Reactive: >/= 1.0The CDC requires that a reactive/equivocal HCV antibody result be sent out for confirmation. HCV Quant by PCR testing. Immature granulocytes/100 WB C Auto (Bld)Ordered By: Susie Solomon on 07-07-2024 Immature granulocytes/100 WBC (Bld) 1.400 % High 0.0-0.9 [facility] Comment on above: IG% - Immature Granu locytes (promyelocytes, myelocytes and metamyelocytes) > 1% indicates that a LEFT SHIFT is Present. L3890.6006on 07-07-2024 HIV Non-Reactive Normal Nonreactive [facility] Comment on above: Result Comment: Non- Reactive Reactive Repeatedly reactive samples must be confirmed according to CDC recommended confirmatory algorithms. The subresults for either HIVAG or AHIV can be used as an aid in the selection of the confirmation algorithm for reactive samples. Send out specimens with Reactive results to [facility] for confirmation. Order the HIV antibody detection and differentiation: lc#[id number] Performed By: #### M 100.2200, L100.0100 #### [facility] [address] [facility] [address] L3890.6102on 07-07-2024 HEP B Surf Ag Non-Reactive Normal Nonreactive [facility] Comment on above: Result Comment: Reac tive: Presumptive evidence of HBV. Repeatedly reactive samples must be confirmed using a neutralization test ([employer] HBsAg Confirmatory Test) Non-Reactive: HBsAg not detected; does not exclude the possibility of exposure to HBV Performed By: #### M 100.2200, L100.0100 #### [facility] [address] [facility] [address] L3890.6301on 07-07-2024 Hepatitis C Ab Non-Reactive Normal Nonreactive [facility] Comment on above: Result Comment: Reac tive: Presumptive evidence of antibodies to HCV. Follow CDC recommendations for supplemental testing. Non-Reactive: Antibodies to HCV were not detected; does not exclude the possibility of exposure to HCV Reactive Results are presumptive evidence of antibodies to HCV. Follow CDC recommendations for supplemental testing. Order confirmation testing: HCV Quant by PCR testing - HCVPCR #[id number] Non Reactive: < 0.8 Equivocal: >/= 0.8 to < 1.0 Reactive: >/= 1.0 The CDC requires that a reactive/equivocal HCV antibody result be sent out for confirmation. HCV Quant by PCR testing. Performed By: #### M 100.2200, L100.0100 #### [facility] [address] [facility] [address] L509.4006on 07-07-2024 Rubella IgG REAC Normal Nonreactive [facility] Comment on above: Result Comment: Anti body Result: Interpretation Non-Reactive: Non-Immune Reactive: Immune The following results were obtained with the [employer] Rubella IgG assay. Results from assays of other manufacturers cannot be used interchangeably. Performed By: #### M 100.2200, L100.0100 #### [facility] [address] [facility] [address] L509.8002on 07-07-2024 Syphilis Abs Non-Reactive Normal Nonreactive [facility] Comment on above: Performed By: #### M 100.2200, L100.0100 #### [facility] [address] [place], [address] Laboratory - Chemistry and C hemistry - challengeOrdered By: Nita Mcintosh on 07-07-2024 Glucose Ql (U) Negative [facility] - Microbiology an d Antimicrobial susceptibilityOrdered By: Susie Solomon on 07-07-2024 HBV surface Ag Ql (S) Non-Reactive Nonreactive [facility] Comment on above: Reactive: Presumptiv e evidence of HBV. Repeatedly reactive samples must be confirmed using a neutralization test ([employer] HBsAg Confirmatory Test)Non-Reactive: HBsAg not detected; does not exclude the possibility of exposure to HBV Laboratory - UrinalysisOrder ed By: Nita Mcintosh on 07-07-2024 Protein Ql (U) Negative [facility] Lymphocytes Auto (Unsp spec) [#/Vol]Ordered By: Susie Solomon on 07-07-2024 Lymphocytes (Bld) [#/Vol] 2.97 10*3/uL 0.83-4.51 [facility] Lymphocytes/100 WBC Auto (Un sp spec)Ordered By: Susie Solomon on 07-07-2024 Lymphocytes/100 WBC (Bld) 22.8 % 19-41 [facility] MCV (mean corpuscular volume ) determinationOrdered By: Susie Solomon on 07-07-2024 MCV (RBC) [Entitic vol] 87.7 fL 81-99 [facility] Mean corpuscular hemoglobin (MCH) determinationOrdered By: Susie Solomon on 07-07-2024 MCH (RBC) [Entitic mass] 29.8 pg 27.0-32.0 [facility] Mean corpuscular hemoglobin concentration (MCHC) determinationOrdered By: Susie Solomon on 07-07-2024 MCHC (RBC) [Mass/Vol] 34.0 g/dL 32-36 [facility] Mean platelet volume determi nationOrdered By: Susie Solomon on 07-07-2024 Platelet mean volume (Bld) [Entitic vol] 11.3 fL 6.2-12.0 [facility] Miscellaneous procedureOrder ed By: Susie Solomon on 07-07-2024 Miscellaneous Test Comment SEE SCANNED REPORT [facility] Monocyte percentageOrdered B y: Susie Solomon on 07-07-2024 Monocytes/100 WBC (Bld) 6.1 % 0-10 [facility] NATERAon 07-07-2024 NATURA SEE SCANNED REPORT Normal [facility] Comment on above: Order Comment: Comme nts: NIPT with Gender Performed By: #### M 100.2200, L100.0100 #### [facility] [address] [place], [place], [address] Neutrophil percentageOrdered By: Susie Solomon on 07-07-2024 Neutrophils/100 WBC (Bld) 68.4 % 47-70 [facility] No Panel InformationOrdered By: Susie Solomon on 07-07-2024 HIV (1&2) Antibody Non-Reactive Nonreactive [facility] Comment on above: Non-ReactiveReactive Repeatedly reactive samples must be confirmed according to CDC recommended confirmatory algorithms. The subresults for either HIVAG or AHIV can be used as an aid in the selection of the confirmation algorithm for reactive samples.Send out specimens with Reactive results to [facility] for confirmation.Order the HIV antibody detection and differentiation: #[id number] Nucleated red blood cell per centageOrdered By: Susie Solomon on 07-07-2024 Nucleated RBC/100 WBC (Bld) [Ratio] 0 % 0-5 [facility] Research Laboratory Technician Office Visit Reporton 07-07-2024 Research Laboratory Technician Office Visit Report [facility] [address], [address] [place] [address] OFFICE VISIT Date of Service: 07/07/24 MR#: [id number] Acct: [id number] Name: LUCIANO KENDALL Rep #: [id number] : 2000 Provider: Dr. Nita motley MD Age/Sex: 24/F Location: [facility] Status: Signed Intake Vital Signs 05/04/24 14:48 06/04/24 13:01 07/07/24 15:11 Height 5 ft 8 in 5 ft 8 in 5 ft 8 in Weight: 226 lb 4 oz 228 lb 8 oz BMI 34.4 34.7 BP 128/82 H 131/84 H Intake Visit Reasons: 13wk OB Static Balancer Required: No Is patient in pain?: No [...] : No PFSH PFSH Medical History Congenital wjevai-rwozkly-wrugh reflux Gallstones UTI (urinary tract infection) Asthma Surgical History Hx of cholecystectomy Hx of tonsillectomy Family History Father Diabetes Type 1 Aunt Thyroid disorder Maternal Mother Thyroid disorder enlarged Grandmother Breast cancer Paternal Social History adopted: No household members: significant other 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al status: employed 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 (more content not included)... Normal [facility] Platelet countOrdered By: Diego Solomon on 07-07-2024 Platelets (Bld) [#/Vol] 225 10*3/uL 150-450 [facility] RBC Auto (Bld) [#/Vol]Ordere d By: Susie Solomon on 07-07-2024 RBC (Bld) [#/Vol] 4.23 10*6/uL 4.2-5.4 [facility] Rubella immune status determ ination by IgG antibody assayOrdered By: Susie Solomon on 07-07-2024 Rubella IgG Antibody REAC Nonreactive [facility] Comment on above: Antibody Result: Int erpretationNon-Reactive: Non-ImmuneReactive: ImmuneThe following results were obtained with the [employer] Rubella IgG assay. Results from assays of other manufacturers cannot be used interchangeably. T. pallidum abOrdered By: Diego Solomon on 07-07-2024 Syphilis Total Antibody Non-Reactive Nonreactiv e [facility] Type AND Screenon 07-07-2024 ABO and Rh group Nom (Bld) Blood group O Rh(D) positive Normal [facility] Comment on above: Order Comment: PN Performed By: #### M 100.2200, L100.0100 #### [facility] [address] [place], [address] White blood cell (WBC) count Ordered By: Susie Solomon on 07-07-2024 WBC (Bld) [#/Vol] 13.0 10*3/uL High 4.4-11.0 [facility] Chlamydia/GC NILDA aptimaon CHLAMY,NUC ACID Negative Normal Negative [facility] Comment on above: Performed By: #### M 100.2200, L100.0100 #### [facility] [address] [place], [address] GC BY NUC ACID Negative Normal Negative [facility] Comment on above: Result Comment: Perf ormed at: =G - [facility] [id number] Population Health Coach: Lisa Morris MD, Phone: [phone] Performed By: #### M 100.2200, L100.0100 #### [facility] [address] [place], [address] Urine Cultureon 06-07-2024 URC Below infection level. Mixed Gram Positive Organisms Samson Count <1000 MIXC Mixed contaminants. Submit a new specimen if indicated. Normal [facility] Comment on above: Performed By: #### M 100.2200, L100.0100 #### [facility] [address] [place], [address] C. trachomatis rRNA NILDA+prob e Ql (Unsp spec)Ordered By: Susie Solomon on 06-04-2024 Chlamydia DNA (NILDA) Negative Negative [facility] Chlamydia trachomatis rRNA d etection by probe and target amplification methodOrdered By: Susie Solomon on 06-04-2024 C. trachomatis rRNA NILDA+probe Ql (Unsp spec) Negative Negative [facility] Neisseria gonorrhoeae nuclei c acid detection by amplified probe techniqueOrdered By: Susie Solomon on 06-04-2024 N. gonorrhoeae DNA NILDA+probe Ql (Unsp spec) Negative Negative [facility] Comment on above: Performed at: =[address] [place], [place] [id number] Director: Lisa Morris MD, Phone: [phone] Research Laboratory Technician Office Visit Reporton 06-04-2024 Research Laboratory Technician Office Visit Report [facility] [address], [address] [place] [address] OFFICE VISIT Date of Service: 06/04/24 MR#: [id number] Acct: [id number] Name: LUCIANO KENDALL Rep #: [id number] : 2000 Provider: ALEXANDRA Coughlin ams Age/Sex: 23/F Location: 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 Normal [facility] Urine cultureOrdered By: Singh Solomon on 06-04-2024 Bacteria identified Cx Nom (U) Positive Abnormal [facility] PAP I-G w/rfx hrHPV-Aptimaon 04-24-2024 ADEQ Comment Normal . [facility] Comment on above: Order Comment: Speci men Comment: [id number] Specimen Comment: Source.............Cervix;Endocervix Specimen Comment: No. of containers..01 ThinPrep Vial Result Comment: Sati sfactory for evaluation. No endocervical component is identified. Performed By: #### L 7400.0353 #### [facility] [address] [place], [address] COMM . Normal . [facility] Comment on above: Order Comment: Speci men Comment: [id number] Specimen Comment: Source.............Cervix;Endocervix Specimen Comment: No. of containers..01 ThinPrep Vial Performed By: #### L 7400.0353 #### [facility] [address] [place], [place], [address] COMMENT Comment Normal . [facility] Comment on above: Order Comment: Speci men Comment: [id number] Specimen Comment: Source.............Cervix;Endocervix Specimen Comment: No. of containers..01 ThinPrep Vial Result Comment: This liquid based ThinPrep(R) pap test was screened with the use of an image guided system. Performed By: #### L 7400.0353 #### [facility] [address] [place], [place], [address] DIAG Comment Normal . [facility] Comment on above: Order Comment: Speci men Comment: [id number] Specimen Comment: Source.............Cervix;Endocervix Specimen Comment: No. of containers..01 ThinPrep Vial Result Comment: NEGA TIVE FOR INTRAEPITHELIAL LESION OR MALIGNANCY. Performed By: #### L 7400.0353 #### [facility] [address] [place], [address] HPV RFLX Comment Normal . [facility] Comment on above: Order Comment: Speci men Comment: [id number] Specimen Comment: Source.............Cervix;Endocervix Specimen Comment: No. of containers..01 ThinPrep Vial Result Comment: The HPV DNA reflex criteria were not met with this specimen result therefore, no HPV testing was performed. Performed at: [address] [id number] Population Health Coach: Lisa Morris MD, Phone: [phone] Performed By: #### L 7400.0353 #### [facility] [address] [place], [address] PAPSMR Comment Normal . [facility] Comment on above: Order Comment: Speci men Comment: [id number] Specimen Comment: Source.............Cervix;Endocervix Specimen Comment: No. of [...] occur. Performed By: #### L 7400.0353 #### [facility] [address] [place], [address] PERFORM Comment Normal . [facility] Comment on above: Order Comment: Speci men Comment: [id number] Specimen Comment: Source.............Cervix;Endocervix Specimen Comment: No. of containers..01 ThinPrep Vial Result Comment: Karla Archer, Helper Shear Operator (ASCP) Performed By: #### L 7400.0353 #### [facility] [address] [place], [address] Synoptic Meteorologist Cyto stain Nom (C vx/Vag) [ID]Ordered By: Magda Franklin on 04-15-2024 Pap Smear Performed By Comment . [facility] Comment on above: Karla Archer, Cytote chnologist (ASCP) Cytology report Cyto stain D oc (Cvx/Vag)Ordered By: Magda Franklin on 04-15-2024 Thin Prep Pap Smear Comment . [facility] Comment on above: The Pap smear is a s creening test designed to aid in thedetection of premalignant and malignant conditions of theuterine cervix. It is not a diagnostic procedure andshould not be used as the sole means of detecting cervicalcancer. Both false-positive and false-negative reports dooccur. Image-guided ThinPrep PapOrd ered By: Magda Franklin on 04-15-2024 Pap Smear Note Comment . [facility] Comment on above: This liquid based Th inPrep(R) pap test was screened withthe use of an image guided system. Image-guided liquid-based Pa pOrdered By: Magda Franklin on 04-15-2024 Pap Smear Diagnosis Comment . [facility] Comment on above: NEGATIVE FOR INTRAEP ITHELIAL LESION OR MALIGNANCY. Image-guided liquid-based ce rvical Pap w high-risk HPV+reflex to HPV 16+18Ordered By: Magda Franklin on 04-15-2024 Human Papillomavirus Screen Comment . [facility] Comment on above: The HPV DNA reflex c nava were not met with this specimenresult therefore, no HPV testing was performed.Performed at: - [facility] [id number] Director: Lisa Morris MD, Phone: [phone] Kidney and Bladderon 024 Kidney and Bladder [facility] Imaging Services [address] [place], [place] [id number] Kidney and Bladder MR#: [id number] Acct: [id number] Name: LUCIANO KENDALL Rep #: [id number] : 2000 F 23 From: Jemal Grimes DO PCP: Dr. Donald Waller MD Status: REG CLI Study: Kidney and Bladder Date of Exam: 04/15/24 Exam# [id number] Ordering Dr: Donald Waller MD [id number] INDICATION: UTI EXAMINATION: Ultrasound US Kidney(s) complete [...] 23:21 EST Reading Location ID and State: [facility] / [place] Tel [phone], Service support , CC: Dr. Donald Waller MD Management Psychologist: Signed Normal [facility] Research Laboratory Technician Office Visit Reporton 04-15-2024 Research Laboratory Technician Office Visit Report [facility] [address], [address] [place] [address] OFFICE VISIT Date of Service: 04/15/24 MR#: [id number] Acct: [id number] Name: LUCIANO KENDALL Rep #: [id number] : 2000 Provider: ANY Bhakta Age/Sex: 23/F Location: 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 Normal [facility] Service comment (Unsp spec) [Interp]Ordered By: Magda Franklin on 04-15-2024 Pap Smear Comment (3) . . [facility] Basic Metabolic Profile (BMP )on 04-10-2024 BUN/CRE 9.6 RATIO Low 10-20 [facility] Comment on above: Order Comment: Order Date: 04/06/24Order Info: 666-04 - BMP Performed By: #### M 100.2200, L100.0100 #### [facility] [address] [place], [address] [place],Total 9.5 mg/dL Normal 8.5-10.1 [facility] Comment on above: Order Comment: Order Date: 04/06/24Order Info: 666-04 - BMP Performed By: #### M 100.2200, L100.0100 #### [facility] [address] [place], [address] Chloride [Moles/Vol] 108 mmol/L High 98-107 [facility] Comment on above: Order Comment: Order Date: 04/06/24Order Info: 666-04 - BMP Performed By: #### M 100.2200, L100.0100 #### [facility] [address] [place], [address] CO2 [Moles/Vol] 25.0 mmol/L Normal 21.0-32.0 [facility] Comment on above: Order Comment: Order Date: 04/06/24Order Info: 666-04 - BMP Performed By: #### M 100.2200, L100.0100 #### [facility] [address] [place], [address] Creatinine [Mass/Vol] 1.14 mg/dL High 0.55-1.02 [facility] Comment on above: Order Comment: Order Date: 04/06/24Order Info: 666-04 - BMP Result Comment: The validity of the calculated GFR GFRAA in patients over 70 years has not been determined. Clinical correlation is essential. Performed By: #### M 100.2200, L100.0100 #### [facility] [address] [place], [address] EST GFR - AA 75 mL/min Normal >60 [facility] Comment on above: Order Comment: Order Date: 04/06/24Order Info: 06 - BMP Result Comment: Afri can Mauritian GFR Calc Performed By: #### M 100.2200, L100.0100 #### [facility] [address] [place], [address] GAP 6 Normal 5-15 [facility] Comment on above: Order Comment: Order Date: 04/06/24Order Info: 666-04 - BMP Performed By: #### M 100.2200, L100.0100 #### [facility] [address] [place], [address] GFR/1.73 sq M.predicted among non-blacks MDRD (S/P/Bld) [Vol rate/Area] 62 mL/min/{1.73_m2} Normal >60 [facility] Comment on above: Order Comment: Order Date: 04/06/24Order Info: 666-04 - BMP Result Comment: Non- GFR Calc Performed By: #### M 100.2200, L100.0100 #### [facility] [address] [place], [address] Glucose [Mass/Vol] 93 mg/dL Normal 74-106 [facility] Comment on above: Order Comment: Order Date: 04/06/24Order Info: 666-04 - BMP Performed By: #### M 100.2200, L100.0100 #### [facility] [address] [place], [address] Potassium [Moles/Vol] 4.2 mmol/L Normal 3.5-5.1 [facility] Comment on above: Order Comment: Order Date: 04/06/24Order Info: 666-04 - BMP Performed By: #### M 100.2200, L100.0100 #### [facility] [address] [place], [address] Sodium [Moles/Vol] 139 mmol/L Normal 136-145 [facility] Comment on above: Order Comment: Order Date: 04/06/24Order Info: 0667-1 - BMP Performed By: #### M 100.2200, L100.0100 #### [facility] [address] [place], [address] Urea nitrogen [Mass/Vol] 11 mg/dL Normal 7-18 [facility] Comment on above: Order Comment: Order Date: 04/06/24Order Info: 0667-1 - BMP Performed By: #### M 100.2200, L100.0100 #### [facility] [address] [place], [address] Blood urea nitrogen (BUN)/cr eatinine ratioOrdered By: Donald Waller on 04-10-2024 Urea nitrogen/Creatinine [Mass ratio] 9.6 mg/mg Low 10-20 [facility] Carbon dioxide measurementOr dered By: Donald Waller on 04-10-2024 CO2 [Moles/Vol] 25.0 mmol/L 21.0-32.0 [facility] Chloride measurementOrdered By: Donald Waller on 04-10-2024 Chloride [Moles/Vol] 108 mmol/L High 98-107 [facility] Estimated glomerular filtrat ion rate (GFR) AmericanOrdered By: Donald Waller on 04-10-2024 Estimated GFR (MDRD) Amer 75 mL/min >60 [facility] Comment on above: GFR Calc Glomerular filtration rate ( GFR) estimationOrdered By: Donald Waller on 04-10-2024 Estimated GFR (MDRD) Non-Af Amer 62 mL/min >60 [facility] Comment on above: Non- GFR Calc Glucose measurementOrdered B y: Donald Waller on 04-10-2024 Glucose [Mass/Vol] 93 mg/dL 74-106 [facility] Potassium measurementOrdered By: Donald Waller on 04-10-2024 Potassium [Moles/Vol] 4.2 mmol/L 3.5-5.1 [facility] Serum anion gap measurementO rdered By: Donald Waller on 04-10-2024 Anion gap [Moles/Vol] 6 mmol/L 5-15 [facility] Serum or plasma calcium mika urement (mass/volume)Ordered By: Donald Waller on 04-10-2024 Calcium [Mass/Vol] 9.5 mg/dL 8.5-10.1 [facility] Serum or plasma creatinine m easurement (mass/volume)Ordered By: Donald Waller on 04-10-2024 Creatinine [Mass/Vol] 1.14 mg/dL High 0.55-1.02 [facility] Comment on above: The validity of the calculated GFR & GFRAA in patients over 70 years has not been determined. Clinical correlation is essential. Serum or plasma urea nitroge n measurement (mass/volume)Ordered By: Donald Waller on 04-10-2024 Urea nitrogen [Mass/Vol] 11 mg/dL 7-18 [facility] Sodium levelOrdered By: Donald Waller on 04-10-2024 Sodium [Moles/Vol] 139 mmol/L 136-145 [facility] Absolute neutrophil countOrd ered By: Donald Waller on 04-03-2024 Neutrophils (Bld) [#/Vol] 4.1 10*3/uL 2.0-7.7 [facility] Albumin to globulin ratioOrd ered By: Donald Waller on 04-03-2024 Albumin/Globulin [Mass ratio] 1.2 {ratio} 0.9-2.4 [facility] Basophil percentageOrdered B y: Donald Waller on 04-03-2024 Basophils/100 WBC (Bld) 0.5 % 0-1 [facility] Bilirubin Test strip Ql (U)O rdered By: Donald Waller on 04-03-2024 Bilirubin Ql (U) Negative Negative [facility] Bilirubin, totalOrdered By: Donald Waller on 04-03-2024 Bilirubin [Mass/Vol] 0.40 mg/dL 0.20-1.00 [facility] Comment on above: For patients on eltr ombopag therapy, use of Dimension [place] TBIL is not recommended. Blood urea nitrogen (BUN)/cr eatinine ratioOrdered By: Donald Waller on 04-03-2024 Urea nitrogen/Creatinine [Mass ratio] 14.5 mg/mg 10-20 [facility] CBC W/Diff, Automatedon 12-0 -2023 Absolute Lymph 2.63 X10 3/uL Normal 0.83-4.51 [facility] Comment on above: Order Comment: Order Date: 04/03/24Order Info: 0184-1 - CBCD Performed By: #### M 100.2200, L100.0100 #### [facility] [address] [place], [address] Absolute Neut 4.1 X10 3/uL Normal 2.0-7.7 [facility] Comment on above: Order Comment: Order Date: 04/03/24Order Info: 0184-1 - CBCD Performed By: #### M 100.2200, L100.0100 #### [facility] [address] [place], [address] Basophils/100 WBC (Bld) 0.5 % Normal 0-1 [facility] Comment on above: Order Comment: Order Date: 04/03/24Order Info: 0184-1 - CBCD Performed By: #### M 100.2200, L100.0100 #### [facility] [address] [place], [address] Eosinophils/100 WBC (Bld) 1.6 % Normal 0-5 [facility] Comment on above: Order Comment: Order Date: 04/03/24Order Info: 0184-1 - CBCD Performed By: #### M 100.2200, L100.0100 #### [facility] [address] [place], [address] Erythrocyte distribution width (RBC) [Ratio] 12.1 % Normal 11.6-14.6 [facility] Comment on above: Order Comment: Order Date: 04/03/24Order Info: 0184-1 - CBCD Performed By: #### M 100.2200, L100.0100 #### [facility] [address] [place], [address] Hematocrit (Bld) [Volume fraction] 39.2 % Normal 37-47 [facility] Comment on above: Order Comment: Order Date: 04/03/24Order Info: 018- - CBCD Performed By: #### M 100.2200, L100.0100 #### [facility] [address] [place], [address] Hemoglobin (Bld) [Mass/Vol] 12.8 g/dL Normal 12.0-15.0 [facility] Comment on above: Order Comment: Order Date: 04/03/24Order Info: 183- - CBCD Performed By: #### M 100.2200, L100.0100 #### [facility] [address] [place], [address] IG% 0.400 Normal 0.0-0.9 [facility] Comment on above: Order Comment: Order Date: 04/03/24Order Info: 018- - CBCD Result Comment: IG% - Immature Granulocytes (promyelocytes, myelocytes and metamyelocytes) > 1% indicates that a LEFT SHIFT is Present. Performed By: #### M 100.2200, L100.0100 #### [facility] [address] [place], [address] Lymphocytes/100 WBC (Bld) 35.3 % Normal 19-41 [facility] Comment on above: Order Comment: Order Date: 04/03/24Order Info: 018- - CBCD Performed By: #### M 100.2200, L100.0100 #### [facility] [address] [place], [address] MCH (RBC) [Entitic mass] 29.3 pg Normal 27.0-32.0 [facility] Comment on above: Order Comment: Order Date: 04/03/24Order Info: 018- - CBCD Performed By: #### M 100.2200, L100.0100 #### [facility] [address] [place], [address] MCHC (RBC) [Mass/Vol] 32.7 g/dL Normal 32-36 [facility] Comment on above: Order Comment: Order Date: 04/03/24Order Info: 0184-1 - CBCD Performed By: #### M 100.2200, L100.0100 #### [facility] [address] [place], [address] MCV (RBC) [Entitic vol] 89.7 fL Normal 81-99 [facility] Comment on above: Order Comment: Order Date: 04/03/24Order Info: 0184-1 - CBCD Performed By: #### M 100.2200, L100.0100 #### [facility] [address] [place], [address] Monocytes/100 WBC (Bld) 6.7 % Normal 0-10 [facility] Comment on above: Order Comment: Order Date: 04/03/24Order Info: 0184-1 - CBCD Performed By: #### M 100.2200, L100.0100 #### [facility] [address] [place], [address] Neutrophils/100 WBC (Bld) 55.5 % Normal 47-70 [facility] Comment on above: Order Comment: Order Date: 04/03/24Order Info: 0184-1 - CBCD Performed By: #### M 100.2200, L100.0100 #### [facility] [address] [place], [address] Nucleated RBC (Bld) [#/Vol] 0 10*3/uL Normal 0-5 [facility] Comment on above: Order Comment: Order Date: 04/03/24Order Info: 0184-1 - CBCD Performed By: #### M 100.2200, L100.0100 #### [facility] [address] [place], [address] Platelet mean volume (Bld) [Entitic vol] 10.8 fL Normal 6.2-12.0 [facility] Comment on above: Order Comment: Order Date: 04/03/24Order Info: 4-1 - CBCD Performed By: #### M 100.2200, L100.0100 #### [facility] [address] [place], [address] Platelets (Bld) [#/Vol] 248 10*3/uL Normal 150-450 [facility] Comment on above: Order Comment: Order Date: 04/03/24Order Info: 183- - CBCD Performed By: #### M 100.2200, L100.0100 #### [facility] [address] [place], [address] RBC (Bld) [#/Vol] 4.37 10*6/uL Normal 4.2-5.4 [facility] Comment on above: Order Comment: Order Date: 04/03/24Order Info: 183- - CBCD Performed By: #### M 100.2200, L100.0100 #### [facility] [address] [place], [address] RDW SD 40.1 fl Normal 35.1-43.9 [facility] Comment on above: Order Comment: Order Date: 04/03/24Order Info: 0184-1 - CBCD Performed By: #### M 100.2200, L100.0100 #### [facility] [address] [place], [address] WBC (Bld) [#/Vol] 7.5 10*3/uL Normal 4.4-11.0 [facility] Comment on above: Order Comment: Order Date: 04/03/24Order Info: 0184-1 - CBCD Performed By: #### M 100.2200, L100.0100 #### [facility] [address] [place], [address] Carbon dioxide measurementOr dered By: Donald Waller on 04-03-2024 CO2 [Moles/Vol] 27.0 mmol/L 21.0-32.0 [facility] Chloride measurementOrdered By: Donald Waller on 04-03-2024 Chloride [Moles/Vol] 109 mmol/L High 98-107 [facility] Comprehensive Metabolic Prof ilon 04-03-2024 Albumin [Mass/Vol] 4.1 g/dL Normal 3.2-5.0 [facility] Comment on above: Order Comment: Order Date: 04/03/24Order Info: 0786-1 - CMP Performed By: #### M 100.2200, L100.0100 #### [facility] [address] [place], [address] Albumin/Globulin [Mass ratio] 1.2 {ratio} Normal 0.9-2.4 [facility] Comment on above: Order Comment: Order Date: 04/03/24Order Info: 0786-1 - CMP Performed By: #### M 100.2200, L100.0100 #### [facility] [address] [place], [address] ALK P 54 U/L Normal 45-117 [facility] Comment on above: Order Comment: Order Date: 04/03/24Order Info: 0786-1 - CMP Performed By: #### M 100.2200, L100.0100 #### [facility] [address] [place], [address] ALT [Catalytic activity/Vol] 28 U/L Normal 13-56 [facility] Comment on above: Order Comment: Order Date: 04/03/24Order Info: 0786-1 - CMP Performed By: #### M 100.2200, L100.0100 #### [facility] [address] [place], [address] AST [Catalytic activity/Vol] 20 U/L Normal 15-37 [facility] Comment on above: Order Comment: Order Date: 04/03/24Order Info: 0786-1 - CMP Performed By: #### M 100.2200, L100.0100 #### [facility] [address] [place], [address] Bilirubin [Mass/Vol] 0.40 mg/dL Normal 0.20-1.00 [facility] Comment on above: Order Comment: Order Date: 04/03/24Order Info: 0786-1 - CMP Result Comment: For patients on eltrombopag therapy, use of Dimension [place] TBIL is not recommended. Performed By: #### M 100.2200, L100.0100 #### [facility] [address] [place], [address] BUN/CRE 14.5 RATIO Normal 10-20 [facility] Comment on above: Order Comment: Order Date: 04/03/24Order Info: 0786-1 - CMP Performed By: #### M 100.2200, L100.0100 #### [facility] [address] [place], [address] CA,Total 9.1 mg/dL Normal 8.5-10.1 [facility] Comment on above: Order Comment: Order Date: 04/03/24Order Info: 0786-1 - CMP Performed By: #### M 100.2200, L100.0100 #### [facility] [address] [place], [address] Chloride [Moles/Vol] 109 mmol/L High 98-107 [facility] Comment on above: Order Comment: Order Date: 04/03/24Order Info: 0786-1 - CMP Performed By: #### M 100.2200, L100.0100 #### [facility] [address] [place], [address] CO2 [Moles/Vol] 27.0 mmol/L Normal 21.0-32.0 [facility] Comment on above: Order Comment: Order Date: 04/03/24Order Info: 0786-1 - CMP Performed By: #### M 100.2200, L100.0100 #### [facility] [address] [place], [address] Creatinine [Mass/Vol] 1.10 mg/dL High 0.55-1.02 [facility] Comment on above: Order Comment: Order Date: 04/03/24Order Info: 0786- - CMP Result Comment: The validity of the calculated GFR GFRAA in patients over 70 years has not been determined. Clinical correlation is essential. Performed By: #### M 100.2200, L100.0100 #### [facility] [address] [place], [address] EST GFR - AA 78 mL/min Normal >60 [facility] Comment on above: Order Comment: Order Date: 04/03/24Order Info: 0786- - CMP Result Comment: Afri can Mauritian GFR Calc Performed By: #### M 100.2200, L100.0100 #### [facility] [address] [place], [address] GAP 4 Low 5-15 [facility] Comment on above: Order Comment: Order Date: 04/03/24Order Info: 0786- - CMP Performed By: #### M 100.2200, L100.0100 #### [facility] [address] [place], [address] GFR/1.73 sq M.predicted among non-blacks MDRD (S/P/Bld) [Vol rate/Area] 64 mL/min/{1.73_m2} Normal >60 [facility] Comment on above: Order Comment: Order Date: 04/03/24Order Info: 0786- - CMP Result Comment: Non- GFR Calc Performed By: #### M 100.2200, L100.0100 #### [facility] [address] [place], [address] Globulin (S) [Mass/Vol] 3.4 g/dL Normal 2.2-4.2 [facility] Comment on above: Order Comment: Order Date: 04/03/24Order Info: 0786-1 - CMP Performed By: #### M 100.2200, L100.0100 #### [facility] [address] [place], [address] Glucose [Mass/Vol] 77 mg/dL Normal 74-106 [facility] Comment on above: Order Comment: Order Date: 04/03/24Order Info: 0786-1 - CMP Performed By: #### M 100.2200, L100.0100 #### [facility] [address] [place], [address] Potassium [Moles/Vol] 3.8 mmol/L Normal 3.5-5.1 [facility] Comment on above: Order Comment: Order Date: 04/03/24Order Info: 0786-1 - CMP Performed By: #### M 100.2200, L100.0100 #### [facility] [address] [place], [address] Sodium [Moles/Vol] 140 mmol/L Normal 136-145 [facility] Comment on above: Order Comment: Order Date: 04/03/24Order Info: 0786-1 - CMP Performed By: #### M 100.2200, L100.0100 #### [facility] [address] [place], [address] T PROT 7.5 g/dL Normal 6.4-8.2 [facility] Comment on above: Order Comment: Order Date: 04/03/24Order Info: 0786-1 - CMP Performed By: #### M 100.2200, L100.0100 #### [facility] [address] [place], [address] Urea nitrogen [Mass/Vol] 16 mg/dL Normal 7-18 [facility] Comment on above: Order Comment: Order Date: 04/03/24Order Info: 0786-1 - CMP Performed By: #### M 100.3124, L100.0100 #### [facility] [address] [place], [address] Eosinophil percentageOrdered By: Donald Waller on 04-03-2024 Eosinophils/100 WBC (Bld) 1.6 % 0-5 [facility] Epithelial cells.squamous LM Ql (Urine sed)Ordered By: Donald Waller on 04-03-2024 Epithelial cells.squamous LM.HPF (Urine sed) [#/Area] 0 /[HPF] 5-10 [facility] Erythrocyte distribution wid th ratioOrdered By: Donald Waller on 04-03-2024 Erythrocyte distribution width (RBC) [Ratio] 12.1 % 11.6-14.6 [facility] Erythrocyte distribution wid th standard deviationOrdered By: Donald Waller on 04-03-2024 Erythrocyte distribution width (RBC) [Entitic vol] 40.1 fL 35.1-43.9 [facility] Estimated glomerular filtrat ion rate (GFR) AmericanOrdered By: Donald Waller on 04-03-2024 Estimated GFR (MDRD) Amer 78 mL/min >60 [facility] Comment on above: GFR Calc Glomerular filtration rate ( GFR) estimationOrdered By: Donald Waller on 04-03-2024 Estimated GFR (MDRD) Non-Af Amer 64 mL/min >60 [facility] Comment on above: Non- GFR Calc Glucose Ql (U)Ordered By: Chantal Waller on 04-03-2024 Urine Glucose (UA) Normal mg/dl Normal [facility] Glucose measurementOrdered B y: Donald Waller on 04-03-2024 Glucose [Mass/Vol] 77 mg/dL 74-106 [facility] Hematocrit Auto (Bld) [Volum e fraction]Ordered By: Donald Waller on 04-03-2024 Hematocrit (Bld) [Volume fraction] 39.2 % 37-47 [facility] Hemoglobin measurementOrdere d By: Donald Waller on 04-03-2024 Hemoglobin (Bld) [Mass/Vol] 12.8 g/dL 12.0-15.0 [facility] Immature granulocytes/100 WB C Auto (Bld)Ordered By: oDnald Waller on 04-03-2024 Immature granulocytes/100 WBC (Bld) 0.400 % 0.0-0.9 [facility] Comment on above: IG% - Immature Granu locytes (promyelocytes, myelocytes and metamyelocytes) > 1% indicates that a LEFT SHIFT is Present. Ketones Test strip Ql (U)Ord ered By: Donald Waller on 04-03-2024 Ketones Ql (U) Negative Negative [facility] - Chemistry and C hemistry - challengeOrdered By: Donald Waller on 04-03-2024 AST [Catalytic activity/Vol] 20 U/L 15-37 [facility] Lymphocytes Auto (Unsp spec) [#/Vol]Ordered By: Donald Waller on 04-03-2024 Lymphocytes (Bld) [#/Vol] 2.63 10*3/uL 0.83-4.51 [facility] Lymphocytes/100 WBC Auto (Un sp spec)Ordered By: Donald Waller on 04-03-2024 Lymphocytes/100 WBC (Bld) 35.3 % 19-41 [facility] MCV (mean corpuscular volume ) determinationOrdered By: Donald Waller on 04-03-2024 MCV (RBC) [Entitic vol] 89.7 fL 81-99 [facility] Mean corpuscular hemoglobin (MCH) determinationOrdered By: Donald Waller on 04-03-2024 MCH (RBC) [Entitic mass] 29.3 pg 27.0-32.0 [facility] Mean corpuscular hemoglobin concentration (MCHC) determinationOrdered By: Donald Waller on 04-03-2024 MCHC (RBC) [Mass/Vol] 32.7 g/dL 32-36 [facility] Mean platelet volume determi nationOrdered By: Donald Waller on 04-03-2024 Platelet mean volume (Bld) [Entitic vol] 10.8 fL 6.2-12.0 [facility] Microscopic analysis of urin e for red blood cells (RBC)Ordered By: Donald Waller on 04-03-2024 Urine RBC 0 SEEN /hpf 0-5 [facility] Monocyte percentageOrdered B y: Donald Waller on 04-03-2024 Monocytes/100 WBC (Bld) 6.7 % 0-10 [facility] Mucus LM Ql (Urine sed)Order ed By: Donald Waller on 04-03-2024 Mucus Ql (Urine sed) RARE /hpf [facility] Neutrophil percentageOrdered By: Donald Waller on 04-03-2024 Neutrophils/100 WBC (Bld) 55.5 % 47-70 [facility] Nitrite Test strip Ql (U)Ord ered By: Donald Waller on 04-03-2024 Nitrite Ql (U) Negative Negative [facility] Nucleated red blood cell per centageOrdered By: Donald Waller on 04-03-2024 Nucleated RBC/100 WBC (Bld) [Ratio] 0 % 0-5 [facility] Platelet countOrdered By: Chantal Waller on 04-03-2024 Platelets (Bld) [#/Vol] 248 10*3/uL 150-450 [facility] Potassium measurementOrdered By: Donald Waller on 04-03-2024 Potassium [Moles/Vol] 3.8 mmol/L 3.5-5.1 [facility] Protein Test strip Ql (U)Ord ered By: Donald Waller on 04-03-2024 Protein Ql (U) Negative Negative [facility] RBC Auto (Bld) [#/Vol]Ordere d By: Donald Waller on 04-03-2024 RBC (Bld) [#/Vol] 4.37 10*6/uL 4.2-5.4 [facility] Serum anion gap measurementO rdered By: Donald Waller on 04-03-2024 Anion gap [Moles/Vol] 4 mmol/L Low 5-15 [facility] Serum globulin measurementOr dered By: Donald Waller on 04-03-2024 Globulin (S) [Mass/Vol] 3.4 g/dL 2.2-4.2 [facility] Serum or plasma alanine terrazas otransferase (ALT) measurementOrdered By: Donald Waller on 04-03-2024 ALT [Catalytic activity/Vol] 28 U/L 13-56 [facility] Serum or plasma albumin mika urement (mass/volume)Ordered By: Donald Waller on 04-03-2024 Albumin [Mass/Vol] 4.1 g/dL 3.2-5.0 [facility] Serum or plasma alkaline lebron sphatase measurementOrdered By: Donald Waller on 04-03-2024 ALP [Catalytic activity/Vol] 54 U/L 45-117 [facility] Serum or plasma calcium mika urement (mass/volume)Ordered By: Donald Waller on 04-03-2024 Calcium [Mass/Vol] 9.1 mg/dL 8.5-10.1 [facility] Serum or plasma creatinine m easurement (mass/volume)Ordered By: Donald Waller on 04-03-2024 Creatinine [Mass/Vol] 1.10 mg/dL High 0.55-1.02 [facility] Comment on above: The validity of the calculated GFR & GFRAA in patients over 70 years has not been determined. Clinical correlation is essential. Serum or plasma urea nitroge n measurement (mass/volume)Ordered By: Donald Waller on 04-03-2024 Urea nitrogen [Mass/Vol] 16 mg/dL 7-18 [facility] Sodium levelOrdered By: Donald Waller on 04-03-2024 Sodium [Moles/Vol] 140 mmol/L 136-145 [facility] Total proteinOrdered By: Carlos Waller on 04-03-2024 Protein [Mass/Vol] 7.5 g/dL 6.4-8.2 [facility] Urinalysis, Completeon 04-03 EPI,SQUAMOUS 0-5 SEEN Normal 5-10 [facility] Comment on above: Order Comment: Order Date: 04/03/24Order Info: [id number] - UACCOLLECTOR TO SPECIFY Performed By: #### M 100.2200, L100.0100 #### [facility] [address] [place], [address] Mucus Ql (Urine sed) RARE Normal [facility] Comment on above: Order Comment: Order Date: 04/03/24Order Info: [id number] - UACCOLLECTOR TO SPECIFY Performed By: #### M 100.2200, L100.0100 #### [facility] [address] [place], [address] BILIRUBIN URINE Negative Normal Negative [facility] Comment on above: Order Comment: Order Date: 04/03/24Order Info: [id number] - UACCOLLECTOR TO SPECIFY Performed By: #### M 100.2200, L100.0100 #### [facility] [address] [place], [address] Clarity (U) Clear Normal Clear [facility] Comment on above: Order Comment: Order Date: 04/03/24Order Info: [id number] - UACCOLLECTOR TO SPECIFY Performed By: #### M 100.2200, L100.0100 #### [facility] [address] [place], [address] Color (U) Straw Normal Yellow [facility] Comment on above: Order Comment: Order Date: 04/03/24Order Info: [id number] - UACCOLLECTOR TO SPECIFY Performed By: #### M 100.2200, L100.0100 #### [facility] [address] [place], [address] GLUCOSE, UR Normal Normal Normal [facility] Comment on above: Order Comment: Order Date: 04/03/24Order Info: [id number] - UACCOLLECTOR TO SPECIFY Performed By: #### M 100.2200, L100.0100 #### [facility] [address] [place], [address] KETONE UR Negative Normal Negative [facility] Comment on above: Order Comment: Order Date: 04/03/24Order Info: [id number] - UACCOLLECTOR TO SPECIFY Performed By: #### M 100.2200, L100.0100 #### [facility] [address] [place], [address] LEUK ESTERASE Negative Normal Negative [facility] Comment on above: Order Comment: Order Date: 04/03/24Order Info: [id number] - UACCOLLECTOR TO SPECIFY Performed By: #### M 100.2200, L100.0100 #### [facility] [address] [place], [address] Nitrite Ql (U) Negative Normal Negative [facility] Comment on above: Order Comment: Order Date: 04/03/24Order Info: [id number] - UACCOLLECTOR TO SPECIFY Performed By: #### M 100.2200, L100.0100 #### [facility] [address] [place], [address] OCCULT BLOOD-UR Negative Normal Negative [facility] Comment on above: Order Comment: Order Date: 04/03/24Order Info: [id number] - UACCOLLECTOR TO SPECIFY Performed By: #### M 100.2200, L100.0100 #### [facility] [address] [place], [address] pH UR 7.0 Normal 5.0 - 8.0 [facility] Comment on above: Order Comment: Order Date: 04/03/24Order Info: [id number] - UACCOLLECTOR TO SPECIFY Performed By: #### M 100.2200, L100.0100 #### [facility] [address] [place], [address] PROT DIPSTX Negative Normal Negative [facility] Comment on above: Order Comment: Order Date: 04/03/24Order Info: [id number] - UACCOLLECTOR TO SPECIFY Performed By: #### M 100.2200, L100.0100 #### [facility] [address] [place], [address] SP.GR. DIPSTX 1.010 Normal 1.002-1.030 [facility] Comment on above: Order Comment: Order Date: 04/03/24Order Info: [id number] - UACCOLLECTOR TO SPECIFY Performed By: #### M 100.2200, L100.0100 #### [facility] [address] [place], [address] UROBILI Normal Normal Normal [facility] Comment on above: Order Comment: Order Date: 04/03/24Order Info: [id number] - UACCOLLECTOR TO SPECIFY Performed By: #### M 100.2200, L100.0100 #### [facility] [address] [place], [address] BACTERIA 0 SEEN Normal None Seen [facility] Comment on above: Order Comment: Order Date: 04/03/24Order Info: [id number] - UACCOLLECTOR TO SPECIFY Performed By: #### M 100.2200, L100.0100 #### [facility] [address] [place], [address] RBC 0 SEEN Normal 0-5 [facility] Comment on above: Order Comment: Order Date: 04/03/24Order Info: [id number] - UACCOLLECTOR TO SPECIFY Performed By: #### M 100.2200, L100.0100 #### [facility] [address] [place], [address] WBC 0 SEEN Normal 0-5 [facility] Comment on above: Order Comment: Order Date: 04/03/24Order Info: [id number] - UACCOLLECTOR TO SPECIFY Performed By: #### M 100.2200, L100.0100 #### [facility] [address] [place], [address] Urine blood detectionOrdered By: Donald Waller on 04-03-2024 Urine Occult Blood Negative Negative [facility] Urine clarityOrdered By: Carlos Waller on 04-03-2024 Clarity (U) Clear Clear [facility] Urine color determinationOrd ered By: Donald Waller on 04-03-2024 Color (U) Straw Yellow [facility] Urine leukocyte esterase det ection by dipstickOrdered By: Donald Waller on 04-03-2024 Leukocyte esterase Test strip Ql (U) Negative Negative [facility] Urine pHOrdered By: Donald marie on 04-03-2024 pH (U) 7.0 [pH] 5.0 - 8.0 [facility] Urine sediment bacteria coun t by microscopy (number/high power field)Ordered By: Donald Waller on 04-03-2024 Bacteria LM.HPF (Urine sed) [#/Area] 0 /[HPF] None Seen [facility] Urine specific gravity measu rementOrdered By: Donald Waller on 04-03-2024 Specific gravity (U) [Rel density] 1.010 1.002-1.030 [facility] Urobilinogen Ql (U)Ordered B y: Donald Waller on 04-03-2024 Urine Urobilinogen Normal mg/dl Normal [facility] White blood cell (WBC) count Ordered By: Donald Waller on 04-03-2024 WBC (Bld) [#/Vol] 7.5 10*3/uL 4.4-11.0 [facility] White blood cell countOrdere d By: Donald Waller on 04-03-2024 Urine WBC 0 SEEN /hpf 0-5 [facility] MEASLES,MUMP,RUBELLAon 05-13 MUMPS ABS, IGG 53.6 AU/mL Normal Immune >10.9 [facility] Comment on above: Result Comment: (NOT E) Negative <9.0 Equivocal 9.0 - 10.9 Positive >10.9 A positive result generally indicates past exposure to Mumps virus or previous vaccination. PERFORMED AT [facility] Performed By: #### L MMR #### Testing performed at [facility] [address] [place] [address] [place] [address] RUBEOLA AB, IGG 49.1 AU/mL Normal Immune >16.4 [facility] Comment on above: Result Comment: (NOT E) Negative <13.5 Equivocal 13.5 - 16.4 Positive >16.4 Presence of antibodies to Rubeola is presumptive evidence of immunity except when acute infection is suspected. Performed By: #### L MMR #### Testing performed at [facility] [address] [facility] [address] RUBELLA AB, IGG 2.63 index Normal Immune >0.99 [facility] Comment on above: Result Comment: (NOT E) Non-immune <0.90 Equivocal 0.90 - 0.99 Immune >0.99 Performed By: #### L MMR #### Testing performed at [address] [address] HEP B SURFACE ABon 0 HEP B SURFACE AB Negative Abnormal POSITIVE [facility] Comment on above: Result Comment: Clinical Interpretation of Immune Status Negative: patient is considered to be not immune to infection with HBV Intermediate: unable to determine if anti-HBs is present at levels consistent with immunity Positive: anti-HBs detected, patient is considered to be immune to infection with HBV Performed By: #### L MMR #### Testing performed at [address] [address] HEP C ABon 05-12-2019 HEP C AB Negative Normal NEGATIVE [facility] Comment on above: Performed By: #### L MMR #### Testing performed at [address] [address] FAX REQUESTon 05-11-2019 FAX TO [facility] Comment on above: Performed By: #### L MMR #### Testing performed at [address] [address] HSV by PCR Superficial Siteo n 11-27-2017 HSV by PCR Superficial Site Abnormal NEG [facility] Comment on above: Result Comment: Posi tiveFinal ReportHerpes Simplex virus (HSV) DNA WAS DETECTED by the polymerase chain reaction (PCR) method on this specimen. These results suggest that the patient is infected with HSV at the site tested.This test was developed and its performance characteristics determined by [facility]. It has not been cleared or approved by the U.S. Food and Drug Administration. The FDA has determined that such clearance or approval is not necessary. This test is used for clinical purposes. It should not be regarded as investigational or for research. Performed By: #### H SVTT2 ####Performed at [facility], [address] [place] [address] HSV Type HERPES SIMPLEX VIRUS , TYPE 1 Normal [facility] Comment on above: Performed By: #### H SVTT2 ####[place] [address] HSV by PCR Superficial Siteo n 11-26-2017 Specimen Description [facility]: Result Comment: LipU PPERRight Performed By: #### H SVTT2 ####[place] [address] Virus Cultureon 11-25-2017 Virus Culture Specimen description : Lesion Lip UPPER Right Special requests: None Culture results: No Virus Isolated After 1 Day Report status: Pending Normal [facility] Comment on above: Performed By: #### V IRC ####[place] [address] XR Spine Lumbosacral 2 or 3 Viewson 11-20-2017 INR Coag RelTime (Bld) Exam Date/Time:11/19/2017 14:07 EDTReason for Exam:low back painReportSTUDY:XR Spine Lumbosacral 2 or 3 Views; 11/19/2017 2:07 pmINDICATION:low back pain.COMPARISON:None. [id number] CLINICIAN:Pa SolisFINDINGS:3 views of the lumbar spine [...] 9:20 amSigned by: Mp Ordaz MD Technologist: [facility] XR Spine Thoracic 3 Viewson 11-20-2017 INR Coag RelTime (Bld) Exam Date/Time:11/19/2017 14:07 EDTReason for Exam:mid back painReportSTUDY:XR Spine Thoracic 3 Views; 11/19/2017 2:07 pmINDICATION:mid back pain.COMPARISON:None. [id number] CLINICIAN:Pa SolisFINDINGS:3 views of the thoracic spine [...] by: Mp Ordaz MD Technologist: GLP Normal [facility] C trach/N anthony Amplified Prob yany 07-02-2017 C. trachomatis amp. Abnormal NODT [facility] Comment on above: Result [...] urine may result in reduced sensitivity. Normal [facility] N. gonorrhoeae amp. Not Detected Normal NODT [facility] Specimen Description Urine Normal [facility] Chlamydia GC by PCRon 2016 Chlamydia by PCR. Not Detected Normal Not Detected [facility] Comment on above: Result Comment: Xper t CT/NG Assay performance has not been evaluated in patients less than 14 years of age. Performed By: #### 3 [id number] ####DANIEL Winters [employer] SubSection, Gonorrhoeae by PCR Not Detected Normal Not Detected [facility] Comment on above: Result Comment: Xper t CT/NG Assay performance has not been evaluated in patients less than 14 years of age. Performed By: #### 3 [id number] ####DANIEL Wintersc [employer] [facility]Section, Vital Signs Date Time Vital Sign Value Performing Clinician Buffy avila 01-04-2025 15:10-0400 Body height 172.[address] Donald Waller MD Work Phone: 9(498)954-740320 [place] [address] 01-04-2025 15:10-0400 Body mass index (BMI) [Ratio] 45.2 kg/m2 Dr. Donald Waller MD Work Phone: 1(339)932-965120 [place] [address] 01-04-2025 15:10-0400 Body weight 134.[address] Donald Waller MD Work Phone: 9(350)785-288143 [place] [address] 01-04-2025 15:10-0400 Diastolic blood pressure 85 mm[Hg] Dr. Donald Waller MD Work Phone: 1(000)423-983243 [place] [address] 01-04-2025 15:10-0400 Systolic blood pressure 129 mm[Hg] Dr. Donald Waller MD Work Phone: 6(417)629-880743 [place] [address] 12-30-2024 15:11-0400 Body height 172.[address] Donald Waller MD Work Phone: 6(866)105-594343 [place] [address] 12-30-2024 15:08-0400 Body mass index (BMI) [Ratio] 45 kg/m2 Dr. Donald Waller MD Work Phone: 1(461)107-896443 [place] [address] 12-30-2024 15:08-0400 Body weight 134.[address] Donald Waller MD Work Phone: 7(954)061-598143 [place] [address] 12-30-2024 15:08-0400 Diastolic blood pressure 82 mm[Hg] Dr. Donald Waller MD Work Phone: 2(128)220-081243 [place] [address] 12-30-2024 15:08-0400 Systolic blood pressure 119 mm[Hg] Dr. Donald Waller MD Work Phone: 4(702)972-559043 [place] [address] 12-22-2024 12:59-0400 Body height 172.[address] Donald Waller MD Work Phone: 8(784)393-317243 [place] [address] 12-22-2024 12:59-0400 Body mass index (BMI) [Ratio] 44.5 kg/m2 Dr. Donald Waller MD Work Phone: 8(713)872-970743 [place] [address] 12-22-2024 12:59-0400 Body weight 132.[address] Donald Waller MD Work Phone: [facility] 12-22-2024 12:59-0400 Diastolic blood pressure 83 mm[Hg] Dr. Donald Waller MD Work Phone: [facility] 12-22-2024 12:59-0400 Systolic blood pressure 119 mm[Hg] Dr. Donald Waller MD Work Phone: [facility] 12-17-2024 15:50-0400 Body height 172.[address] Donald Waller MD Work Phone: 5(798)970-096120 [place] [address] 12-17-2024 15:48-0400 Body mass index (BMI) [Ratio] 44.2 kg/m2 Dr. Donald Waller MD Work Phone: 9(981)721-750720 [place] [address] 12-17-2024 15:48-0400 Body weight 132.[address] Donald Waller MD Work Phone: 4(330)356-988420 [place] [address] 12-17-2024 15:48-0400 Diastolic blood pressure 87 mm[Hg] Dr. Donald Waller MD Work Phone: 2(002)680-107720 [place] [address] 12-17-2024 15:48-0400 Systolic blood pressure 138 mm[Hg] Dr. Donald Waller MD Work Phone: [facility] 12-08-2024 09:37-0400 Body height 172.[address] Donald Waller MD Work Phone: 3(911)576-274920 [place] [address] 12-08-2024 09:37-0400 Body mass index (BMI) [Ratio] 43.5 kg/m2 Dr. Donald Waller MD Work Phone: 5(924)470-891720 [place] [address] 12-08-2024 09:37-0400 Body weight 129.[address] Donald Waller MD Work Phone: [facility] 12-08-2024 09:37-0400 Diastolic blood pressure 82 mm[Hg] Dr. Donald Waller MD Work Phone: 7(716)790-036120 [place] [address] 12-08-2024 09:37-0400 Systolic blood pressure 130 mm[Hg] Dr. Donald Waller MD Work Phone: 9(106)714-974920 [place] [address] 11-27-2024 14:23-0400 Body height 172.[address] Donald Waller MD Work Phone: 8(808)922-891343 [place] [address] 11-27-2024 14:23-0400 Body mass index (BMI) [Ratio] 42.9 kg/m2 Dr. Donald Waller MD Work Phone: 3(619)152-102043 [place] [address] 11-27-2024 14:23-0400 Body weight 127.[address] Donald Waller MD Work Phone: 5(709)612-988843 [place] [address] 11-27-2024 14:23-0400 Diastolic blood pressure 85 mm[Hg] Dr. Donald Waller MD Work Phone: 1(994)323-298943 [place] [address] 11-27-2024 14:23-0400 Systolic blood pressure 138 mm[Hg] Dr. Donald Waller MD Work Phone: 4(716)029-186543 [place] [address] 11-19-2024 08:40-0400 Body height 172.[address] Donald Waller MD Work Phone: 0(733)285-903243 [place] [address] 11-19-2024 08:40-0400 Body mass index (BMI) [Ratio] 41.4 kg/m2 Dr. Donald Waller MD Work Phone: 3(879)412-063143 [place] [address] 11-19-2024 08:40-0400 Body weight 123.[address] Donald Waller MD Work Phone: 5(092)441-938320 [place] [address] 11-19-2024 08:40-0400 Diastolic blood pressure 84 mm[Hg] Dr. Donald Waller MD Work Phone: 8(215)648-834343 [place] [address] 11-19-2024 08:40-0400 Systolic blood pressure 126 mm[Hg] Dr. Donald Waller MD Work Phone: 1(405)904-242343 [place] [address] 11-09-2024 15:36-0400 Body height 172.[address] Donald Waller MD Work Phone: 4(635)832-546243 [place] [address] 11-09-2024 15:36-0400 Body mass index (BMI) [Ratio] 41.5 kg/m2 Dr. Donald Waller MD Work Phone: 1(602)503-942020 [place] [address] 11-09-2024 15:36-0400 Body weight 123.[address] Donald Waller MD Work Phone: 8(792)672-833643 [place] [address] 11-09-2024 15:36-0400 Diastolic blood pressure 84 mm[Hg] Dr. Donald Waller MD Work Phone: 5(779)573-955843 [place] [address] 11-09-2024 15:36-0400 Systolic blood pressure 133 mm[Hg] Dr. Donald Waller MD Work Phone: 4(830)158-555043 [place] [address] 10-27-2024 13:28-0400 Body height 172.[address] Donald Waller MD Work Phone: 6(795)430-675843 [place] [address] 10-27-2024 13:27-0400 Body mass index (BMI) [Ratio] 40.3 kg/m2 Dr. Donald Waller MD Work Phone: 7(115)728-083443 [place] [address] 10-27-2024 13:27-0400 Body weight 120.[address] Donald Waller MD Work Phone: 7(262)134-817443 [place] [address] 10-27-2024 13:27-0400 Diastolic blood pressure 87 mm[Hg] Dr. Donald Waller MD Work Phone: 4(523)236-457043 [place] [address] 10-27-2024 13:27-0400 Systolic blood pressure 133 mm[Hg] Dr. Donald Waller MD Work Phone: 8(308)220-624843 [place] [address] 09-28-2024 14:56-0400 Body height 172.[address] Donald Waller MD Work Phone: 7(492)278-397843 [place] [address] 09-28-2024 14:56-0400 Body mass index (BMI) [Ratio] 39.8 kg/m2 Dr. Donald Waller MD Work Phone: 8(726)944-030843 [place] [address] 09-28-2024 14:56-0400 Body weight 118.[address] Donald Waller MD Work Phone: [facility] 09-28-2024 14:56-0400 Diastolic blood pressure 76 mm[Hg] Dr. Donald Waller MD Work Phone: [facility] 09-28-2024 14:56-0400 Systolic blood pressure 122 mm[Hg] Dr. Donald Waller MD Work Phone: 8(088)295-743820 [place] [address] 09-28-2024 07:30-0400 Body height 172.[address] Donald Waller MD Work Phone: 8(868)776-165295 [address] 09-28-2024 07:30-0400 Body mass index (BMI) [Ratio] 40 kg/m2 Dr. Donald Waller MD Work Phone: 8(871)072-467643 [place] [address] 09-28-2024 07:30-0400 Body temperature 98.8 [degF] Dr. Donald Waller MD Work Phone: 7(185)292-625420 [place] [address] 09-28-2024 07:30-0400 Body weight 119.[address] Donald Waller MD Work Phone: 7(675)524-223620 [place] [address] 09-28-2024 07:30-0400 Diastolic blood pressure 80 mm[Hg] Dr. Donald Waller MD Work Phone: 5(825)440-523220 [place] [address] 09-28-2024 07:30-0400 Heart rate 90 /min Dr. Donald Waller MD Work Phone: 9(487)819-900420 [place] [address] 09-28-2024 07:30-0400 SaO2% (BldA) [Mass fraction] 99 % Dr. Donald Waller MD Work Phone: 2(668)630-404420 [place] [address] 09-28-2024 07:30-0400 Systolic blood pressure 120 mm[Hg] Dr. Donald Waller MD Work Phone: 6(853)243-860320 [place] [address] 09-01-2024 15:02-0400 Body mass index (BMI) [Ratio] 37.4 kg/m2 Dr. Donald Waller MD Work Phone: 6(791)120-202520 [place] [address] 09-01-2024 15:02-0400 Body weight 111.[address] Donald Waller MD Work Phone: [facility] 09-01-2024 15:02-0400 Diastolic blood pressure 81 mm[Hg] Dr. Donald Waller MD Work Phone: [facility] 09-01-2024 15:02-0400 Systolic blood pressure 125 mm[Hg] Dr. Donald Waller MD Work Phone: 5(227)986-687420 [place] [address] 08-04-2024 10:40-0400 Body height 172.[address] Donald Waller MD Work Phone: 0(789)262-185895 [address] 08-04-2024 10:40-0400 Body mass index (BMI) [Ratio] 35.8 kg/m2 Dr. Donald Waller MD Work Phone: 2(044)024-141095 [address] 08-04-2024 10:40-0400 Body weight 106.[address] Donald Waller MD Work Phone: 9(416)060-738420 [place] [address] 08-04-2024 10:40-0400 Diastolic blood pressure 82 mm[Hg] Dr. Donald Waller MD Work Phone: 0(346)895-454020 [place] [address] 08-04-2024 10:40-0400 Systolic blood pressure 124 mm[Hg] Dr. Donald Waller MD Work Phone: 8(229)521-172120 [place] [address] 07-07-2024 15:11-0400 Body height 172.[address] Donald Waller MD Work Phone: 3(411)909-586720 [place] [address] 07-07-2024 15:11-0400 Body mass index (BMI) [Ratio] 34.7 kg/m2 Dr. Donald Waller MD Work Phone: 3(525)537-446220 [place] [address] 07-07-2024 15:11-0400 Body weight 103.[address] Donald Waller MD Work Phone: 2(520)288-616720 [place] [address] 07-07-2024 15:11-0400 Diastolic blood pressure 84 mm[Hg] Dr. Donald Waller MD Work Phone: 5(317)529-885920 [place] [address] 07-07-2024 15:11-0400 Systolic blood pressure 131 mm[Hg] Dr. Donald Waller MD Work Phone: [facility] 06-04-2024 13:01-0500 Body mass index (BMI) [Ratio] 34.4 kg/m2 Dr. Donald Waller MD Work Phone: [facility] 06-04-2024 13:01-0500 Body weight 102.[address] Donald Waller MD Work Phone: [facility] 06-04-2024 13:01-0500 Diastolic blood pressure 82 mm[Hg] Dr. Donald Waller MD Work Phone: [facility] 06-04-2024 13:01-0500 Systolic blood pressure 128 mm[Hg] Dr. Donald Waller MD Work Phone: [facility] 04-15-2024 11:31-0500 Body mass index (BMI) [Ratio] 32.8 kg/m2 Dr. Donald Waller MD Work Phone: [facility] 04-15-2024 11:31-0500 Body weight 97.[address] Donald Waller MD Work Phone: [facility] 04-15-2024 11:31-0500 Diastolic blood pressure 71 mm[Hg] Dr. Donald Waller MD Work Phone: [facility] 04-15-2024 11:31-0500 Systolic blood pressure 128 mm[Hg] Dr. Donald Waller MD Work Phone: [facility] Encounters Encounter Date Encounter Type Care Provider Facility Start: 01-04-2025 End: 01-04-[address] Nita Mcintosh MD -[facility] Work Phone: Start: 01-04-2025 End: 01-04-[address] Donald Waller MD Work Phone: -[facility] Start: 12-30-2024 End: 12-30-[address] Susan Chvaez DO -[facility] Work Phone: Start: 12-30-2024 End: 12-30-[address] Donald Waller MD Work Phone: [facility] Start: 12-22-2024 End: 12-22-[address] Nita Mcintosh MD -[facility] Work Phone: Start: 12-22-2024 End: 12-22-[address] Donald Waller MD Work Phone: [facility] Start: 12-17-2024 End: 12-17-[address] Nita Mcintosh MD -[facility] Work Phone: Start: 12-17-2024 End: 12-17-[address] Donald Waller MD Work Phone: [facility] Start: 12-17-2024 End: 12-17-2024 ambulatory Donald Waller Facility:[facility] Start: 12-08-2024 End: 12-08-2024 Patient encounter procedure Susie Solomon CNM -[facility] Work Phone: Start: 12-08-2024 End: 12-08-[address] Donald Waller MD Work Phone: [facility] Start: 11-27-2024 End: 11-27-[address] Nita Mcintosh MD -[facility] Work Phone: Start: 11-27-2024 End: 11-27-[address] Donald Waller MD Work Phone: [facility] Start: 11-19-2024 End: 11-19-[address] Nita Mcintosh MD -[facility] Work Phone: Start: 11-19-2024 End: 11-19-[address] Donald Waller MD Work Phone: [facility] Start: 11-19-2024 End: 11-19-2024 ambulatory Donald Waller Facility:[facility] Start: 11-09-2024 End: 11-09-[address] Nita Mcintosh MD -[facility] Work Phone: Start: 11-09-2024 End: 11-09-[address] Donald Waller MD Work Phone: [facility] Start: 10-27-2024 End: 10-27-2024 Patient encounter procedure Jennifer FISHERC -[facility] Work Phone: Start: 10-27-2024 End: 10-27-[address] Donald Waller MD Work Phone: [facility] Start: 10-27-2024 Non-patient / Non-visit Dr. Jaida Mcpherson MD -[facility] Work Phone: Start: 10-27-2024 End: 10-27-2024 ambulatory Donald Waller Facility:[facility] Start: 10-10-2024 End: 10-10-[address] Donald Waller MD Work Phone: [facility] Work Phone: Start: 10-10-2024 End: 10-10-[address] Donald Waller MD -Laboratory Specimen Work Phone: Start: 10-10-2024 End: 10-10-2024 ambulatory Donald Waller Facility:[facility] Start: 09-28-2024 End: 09-28-2024 Patient encounter procedure Jennifer AGARWAL -[facility] Work Phone: Start: 09-28-2024 End: 09-28-[address] Donald Waller MD Work Phone: [facility] Work Phone: Start: 09-28-2024 End: 09-28-2024 Patient encounter procedure Dinh Lorenzana [place] -[facility] Work Phone: Start: 09-28-2024 End: 09-28-[address] Donald Waller MD Work Phone: [facility] Work Phone: Start: 09-01-2024 End: 09-01-[address] Susan Chavez DO -[facility] Work Phone: Start: 09-01-2024 End: 09-01-2024 ambulatory Donald Waller Facility:[facility] Start: 08-19-2024 End: 08-19-[address] Nita Mcintosh MD -Ultrasound [facility] Work Phone: Start: 08-19-2024 End: 08-19-2024 ambulatory Donald Waller Facility:[facility] Start: 08-04-2024 End: 08-04-2024 Patient encounter procedure Jennifer Willard NP- -[facility] Work Phone: Start: 08-04-2024 End: 08-04-[address] Donald Waller MD Work Phone: [facility] Work Phone: Start: 08-04-2024 End: 08-04-2024 ambulatory Jennifer Willard NP Facility:[facility] Start: 07-07-2024 End: 07-07-[address] Donald Waller MD Work Phone: [facility] Work Phone: Start: 07-07-2024 End: 07-07-[address] Nita Mcintosh MD -Lab, [facility] Start: 07-07-2024 End: 07-07-[address] Nita Mcintosh MD -[facility] Work Phone: Start: 07-07-2024 End: 07-07-2024 ambulatory Donald Waller Facility:[facility] Start: 07-07-2024 End: 07-07-2024 ambulatory Donald Waller Facility:[facility] Start: 06-04-2024 End: 06-04-2024 Patient encounter procedure Susie Solomon CNM -Laboratory, Specimen Work Phone: Start: 06-04-2024 End: 06-04-2024 Patient encounter procedure Susie Solomon CNM -[facility] Work Phone: Start: 06-04-2024 End: 06-04-2024 ambulatory Donald Waller Facility:[facility] Start: 06-04-2024 End: 06-04-2024 ambulatory Donald Waller Facility:[facility] Start: 04-15-2024 End: 04-15-[address] Donald Waller MD -Ultrasound, [facility] Work Phone: Start: 04-15-2024 End: 04-15-2024 Patient encounter procedure Magda AGARWAL -[facility] Work Phone: Start: 04-15-2024 End: 04-15-2024 Patient encounter status Magda AGARWAL [facility] Start: 04-15-2024 End: 04-15-2024 ambulatory Donald Waller Facility:[facility] Start: 04-15-2024 End: 04-15-2024 ambulatory Donald Waller Facility:[facility] Start: 04-10-2024 End: 04-10-[address] Donald Waller MD -Laboratory, Specimen Work Phone: Start: 04-10-2024 End: 04-10-2024 ambulatory Donald Waller Facility:[facility] Start: 04-03-2024 End: 04-03-[address] Donald Waller MD -Laboratory, [facility] Start: 04-03-2024 End: 04-03-2024 ambulatory Donald Waller Facility:[facility] Start: 11-26-2017 Patient encounter ELENI VIDAL [facility] Start: 11-19-2017 End: 11-20-2017 Patient encounter [facility] Facility:[facility] Start: 11-19-2017 Patient encounter Facil [id number] Start: 11-05-2017 Ambulatory [facility] Facility :[place] Start: 07-02-2017 End: 07-02-2017 Patient encounter [facility] Start: 12-21-2016 End: 12-22-2016 Patient encounter [facility] Facility:[facility] Procedures Date Procedure Procedure Detail Performing Clinician Start: 12-17-2024 Beta-hemolytic Strep tococcus culture Dr. Donald Waller MD Work Phone: Start: 11-19-[address] Donald Waller MD Work Phone: Start: 10-27-2024 Flow cytometry cell surf marker techl only 1st Dr. Donald Waller MD Work Phone: Start: 10-27-2024 Serologic test for syphilis Dr. Donald Waller MD Work Phone: Start: 08-19-2024 Ultrasonography in f irst trimester [...] HCV Quant by PCR testing - HCVPCR #[id number] Non Reactive: < 0.8 Equivocal: >/= 0.8 [...] Treatment Date Care Activity Detail Author Start: 12-17-2024 Group B Streptococcus Culture Group B Streptococcus Culture [facility] Start: 12-17-2024 Streptococcus agalactiae [Presence] in Unspecified specimen by Organism specific culture [facility] Start: 11-19-2024 Bacteria identified in Urine by Culture Urine Culture [facility] Start: 11-19-2024 CBC W Auto Differential panel - Blood [facility] Start: 11-19-2024 [facility] Start: 10-27-2024 Comprehensive metabolic 2000 panel - Serum or Plasma [facility] Start: 10-27-2024 CBC W Auto Differential panel - Blood [facility] Start: 10-27-2024 Serologic test for syphilis [facility] Start: 10-27-2024 [facility] Alanine aminotransfe rase [Enzymatic activity/volume] in Serum or Plasma [facility] Albumin [Mass/volume ] in Serum or Plasma [facility] Alkaline phosphatase [Enzymatic activity/volume] in Serum or Plasma [facility] Anion gap in Serum o r Plasma [facility] Beta-hemolytic Streptococcus culture [facility] Bilirubin, total measurement [facility] BUN/Creatinine ratio [facility] Calcium [Mass/volume ] in Serum or Plasma [facility] Carbon dioxide, tota l [Moles/volume] in Central venous blood [facility] CBC W Auto Different ial panel - Blood [facility] Creatinine [Mass/vol ume] in Serum or Plasma [facility] Erythrocyte mean corpuscular volume determination [facility] Erythrocyte mean corpuscular volume determination [facility] anatomy study [facility] Glucose [Mass/volume ] in Serum or Plasma [facility] Hematocrit [Volume Fraction] of Blood [facility] Hematocrit [Volume Fraction] of Blood [facility] Hemoglobin [Mass/vol ume] in Blood [facility] Hemoglobin [Mass/vol ume] in Blood [facility] Leukocytes [#/volume ] in Blood [facility] Leukocytes [#/volume ] in Blood [facility] Mean corpuscular hem oglobin concentration determination [facility] Mean corpuscular hem oglobin concentration determination [facility] Mean corpuscular hem oglobin determination [facility] Mean corpuscular hem oglobin determination [facility] Measurement of gluco se 2 hours after glucose challenge for glucose tolerance test [facility] Measurement of renal function [facility] Neutrophil count [facility] Neutrophil count [facility] Neutrophil percent differential count [facility] Neutrophil percent differential count [facility] Platelets [#/volume] in Blood [facility] Platelets [#/volume] in Blood [facility] Potassium measurement [facility] Protein/Creatinine [ Ratio] in Urine [facility] Red blood cell count [facility] Red blood cell count [facility] Red cell distributio n width determination [facility] Red cell distributio n width determination [facility] Serologic test for syphilis [facility] Serum chloride measurement [facility] Sodium measurement [facility] Total protein measurement [facility] Urea nitrogen [Mass/ volume] in Serum or Plasma [facility] Urine culture [facility] Immunizations Immunization Date Immunization Notes [facility] Provider [facility]-27-2024 tetanus toxoid, redu ketan diphtheria toxoid, and acellular pertussis vaccine, adsorbed Dr. Donald Waller MD Work Phone: [facility] 11-29-2016 meningococcal B vacc ine, fully recombinant Dr. Donald Waller MD Work Phone: [facility] 11-29-2015 meningococcal B vacc ine, fully recombinant Dr. Donald Waller MD Work Phone: [facility] 11-29-2015 meningococcal polysaccharide (groups A, C, Y and W-135) diphtheria toxoid conjugate vaccine (MCV4P) Dr. Donald Waller MD Work Phone: [facility] 11-02-2010 meningococcal polysaccharide (groups A, C, Y and W-135) diphtheria toxoid conjugate vaccine (MCV4P) Dr. Donald Waller MD Work Phone: [facility] 08-05-[address] Donald Waller MD Work Phone: [facility] 12-29-2003 measles, mumps and rubella virus vaccine Dr. Donald Waller MD Work Phone: [facility] 10-01-[address] Donald Waller MD Work Phone: [facility] 06-27-2000 measles, mumps and rubella virus vaccine Dr. Donald Waller MD Work Phone: [facility] Payers Date Payer Category Payer Self-pay 2024 Unknown [id number] 2017 Unknown [id number] 2016 Unknown Unknown [id number] 2.16.8 40.1.443173.3.579.2.462 Unknown [id number] 2.16.8 40.1.962300.3.579.2.462 Unknown [id number] .16.8 40.1.200493.3.579.2.462 Unknown [id number] 2.16.8 40.1.129343.3.579.2.462 Unknown [id number] 2.16.8 40.1.213234.3.579.2.462 Unknown [id number] 2.16.8 40.1.628543.3.579.2.462 Unknown [id number] 2.16.8 40.1.554650.3.579.2.462 Unknown [id number] 2.16.8 40.1.643373.3.579.2.462 Unknown [id number] 2.16.8 40.1.612359.3.579.2.462 Unknown [id number] 2.16.8 40.1.735966.3.579.2.462 Unknown [id number] 2.16.8 40.1.673819.3.579.2.462 Unknown [id number] 2.16.8 40.1.834372.3.579.2.462 Unknown [id number] 2.16.8 40.1.450081.3.579.2.462 Unknown [id number] 2.16.8 40.1.167881.3.579.2.462 Unknown [id number] 2.16.8 40.1.506741.3.579.2.462 Unknown [id number] 2.16.8 40.1.503501.3.579.2.462 Unknown [id number] 2.16.8 40.1.557833.3.579.2.462 Unknown [id number] 2.16.8 40.1.976937.3.579.2.462 Unknown [id number] 2.16.8 40.1.010889.3.579.2.462 Unknown [id number] 2.16.8 40.1.206759.3.579.2.462 Unknown [id number] 2.16.8 40.1.448734.3.579.2.462 Unknown [id number] 2.16.8 40.1.639048.3.579.2.462 Unknown [id number] 2.16.8 40.1.454795.3.579.2.462 Unknown [id number] 2.16.8 40.1.574513.3.579.2.462 Unknown [id number] 2.16.8 40.1.730388.3.579.2.462 Unknown [id number] 2.16.8 40.1.433179.3.579.2.462 Unknown [id number] 2.16.8 40.1.919571.3.579.2.462 Social History Date Type Detail Facility Start: 05-26-2024 Tobacco smoking stat us [facility] Smokes tobacco daily (finding) [facility] Start: 07-17-2024 End: 08-06-2024 Sex Female (finding) [facility] Start: 2000 Sex Assigned At Female [facility] Clinical Notes 04-15-2024 to 12-30-2024 Note Date & Type Note Facility 12-30-2024 Progress note [facility] 12-30-2024 Progress note Note Date/Time December 30, 2024 3:46pm [facility] [address], [address] [place] [address] OFFICE VISIT Date of Service: 12/30/24 MR#: [id number] Acct: [id number] Name: LUCIANO KENDALL Rep #: [id number] : 2000 Provider: Dr. Naila Chavez DO Age/Sex: 24/F Location: [facility] Status: Signed Intake Vital Signs 11/09/24 15:36 12/22/24 12:59 12/30/24 15:08 12/30/24 15:11 Height 5 ft 8 in 5 ft 8 in 5 ft 8 in 5 ft 8 in Weight: 296 lb 4 oz BMI 45.0 BP 119/82 H Intake Visit Reasons: 39 wk ob Static Balancer Required: No Is patient in pain?: No Allergies No Known Allergies Allergy (Verified 12/30/24 15:08) Medications ?Medication ?Instructions ?Recorded ?Confirmed ?Type Bacillus coagulans 250 million 2 tab PO ONCE 05/26/24 12/30/24 History cell chewable tablet (Probiotic (B. coagulans)) PNV 153-FA 400 mcg-om3 35 mg-dha tab PO 05/26/2412/30 History 25 mg-epa 5 mg-fish oil chew tablet ascorbate calcium (vitamin C) 500 500 mg PO QDAY 05/2612/30/24 History mg tablet ferrous sulfate 137 mg (45 mg 137 mg PO QDAY 05/26/24 12/30/24 History iron) tablet,extended release (Slow Fe) ondansetron 4 mg disintegrating 4 mg PO Q4H PRN nausea and 08/04/24 12/30/24 Rx tablet vomiting #60 tabs Last Menstrual Period: 04/01/24 : No PFSH PFSH Medical History Congenital ydozfn-wthbvjf-wcfyq reflux Gallstones UTI (urinary tract infection) Asthma Surgical History Hx of cholecystectomy Hx of tonsillectomy Family History Father Diabetes Type 1 Aunt Thyroid disorder Maternal Mother Thyroid disorder enlarged Grandmother Breast cancer Paternal Social History adopted: No household members: significant other 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al status: employed 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[employer] 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al exposures/hazards: No pets [...] 1-2 times per week duration: 60-90 minutes/day sid/buddhism: None seatbelt use: always do you feel safe at home: Yes additional social history: significant other- Juan History 1 Elective abortions Hx Para 0 Spontaneous abortions Hx # Term Pregnancies Ectopic pregnancies Hx # Pregnancies Multiple births # of living children HPI 39 wk ob Details: LUCIANO KENDALL is a 24 year old who presents for routine OB visit. OB Visit TERRENCE Calculator Estimated Delivery Date Method Current WG Current Estimate 01/06/25 LMP (Certain) 39w 0d Other Estimates 01/09/25 Ultrasound #1 38w 4d Expected Delivery Route/Plan Labor Preferences- CB/BF classes: encouraged- will take online labor support person: Wesley labor intervention preferences: epidural pain management options preferred: [] cut cord/dad catch: maybe cord : yes PP control planned: discussed discussed possible routes of delivery and associated risks: [] special requests: [] Specific Issue/Plans Covid status: [] Flu vaccine: [] Tdap vaccine: 10/27/24 Rhogam: NA LARC form signed: yes movement and labor precautions reviewed. Problem list reviewed and updated with the most current plan of care details and appropriate orders placed. Relevant counseling for the gestational age provided. Continue routine care and follow up unless otherwise noted in visit notes/problem list details Initial Weight: 226 lb Date -?-?-?-?-?-?-?-?-?-?-?-?- EGA Weight BP Urine Prot -?-?-?-?-?-?-?-?-?-?-?-?- Glucose FHR FuHt Pres Dilation -?-?-?-?-?-?-?-?-?-?-?-?- Effaced St Visit Note 06/04/24 -?-?-?-?-?-?-?-?-?-?-?-?- 9w 1d 226 lb 4 oz (+4 oz) 128/82 -?-?-?-?-?-?-?-?-?-?-?-?- 175 -?-?-?-?-?-?-?-?-?-?-?-?- KW- CRL cons wit h dates. accepts nipt. 07/07/24 -?-?-?-?-?-?-?-?-?-?-?-?- 13w 6d 228 lb 8 oz (+2 lb 8 oz) 131/84 Negative -?-?-?-?-?-?-?-?--?-?-?-?- Negative 145 -?-?-?-?-?-?-?-?-?-?-?-?- Sm- no vb crampi ng 08/04/24 -?-?-?-?-?-?-?-?-?-?-?-?- 17w 6d 235 lb 6 oz (+9 lb 6 oz) 124/82 -?-?-?-?-?-?-?-?-?-?-?-?- 153 -?-?-?-?-?-?-?-?-?-?-?-?- MH-No VB. Reques ts labs for urinary reflux today:does q3mo. Denies UTI sx. Alexandra sent:going on cruise. 09/01/24 -?-?-?-?-?-?-?-?-?-?-?-?- 21w 6d 246 lb 2 oz (+20 lb 2 oz) 125/81 Negative -?-?-?-?--?-?-?-?-?-?-?-?- Negative 145 -?-?-?-?-?-?-?-?-?-?-?-?- JV- no lof, vagi nal bleeding and feeling some movements. has anterior placenta. Has lots of heart burn. will start pepcid. anatomy scan reviewed . 09/28/24 -?-?-?-?-?-?-?-?-?-?-?-?- 25w 5d 262 lb (+36 lb) 122/76 Negative -?-?-?-?-?-?-?-?-?-?-?-?- Negative 141 -?-?-?-?-?-?-?-?-?-?-?-?- No VB. Good FM. URI and saw Urgent care and starting amoxil. Enc rest, fluids etc. 10/27/24 -?-?-?-?-?--?-?-?-?-?-?-?- 29w 6d 265 lb 4 oz (+39 lb 4 oz) 133/87 Negative -?-?-?-?-?-?-?-?-?-?-?-?- Negative 142 30 -?-?-?-?-?-?-?-?-?-?-?-?- -No Vb, LOF. G ood FM. Tdap 11/09/24 -?-?-?-?-?-?-?-?-?-?-?-?- 31w 5d 273 lb 4 oz (+47 lb 4 oz) 133/84 Negative -?-?--?-?-?-?-?-?-?-?-?-?- Negative 140 32 -?-?-?-?-?-?-?-?-?-?-?-?- SM- no vb lof go od fm no regular ctx reviewed good nutrition in 11/19/24 -?-?-?-?-?-?-?-?-?-?-?-?- 33w 1d 272 lb 6 oz (+46 lb 6 oz) 126/84 Negative -?-?-?-?-?-?-?-?-?-?-?-?- Negative 140 33 -?-?-?-?-?-?-?--?-?-?-?-?- SM- no vb lof go od fm no regular ctx 11/27/24 -?-?-?-?-?-?-?-?-?-?-?-?- 34w 2d 282 lb 3 oz (+56 lb 3 oz) 138/85 Negative -?-?-?-?-?-?-?-?-?-?-?-?- Negative 145 34 -?-?-?-?-?-?-?-?-?-?-?-?- SM- n ovb lof go od f mn oregualr ctx 12/08/24 -?-?-?-?-?-?-?-?-?-?-?-?- 35w 6d 286 lb 8 oz (+60 lb 8 oz) 130/82 Negative -?-?-?-?-?-?-?-?-?-?-?-?- Negative 160 36 -?-?-?-?-?-?-?-?-?-?-?-?- KW- no vb/lof/ct x. good fm discussed gbs for next week. 12/17/24 -?-?-?-?-?-?-?-?-?-?-?-?- 37w 1d 291 lb 2 oz (+65 lb 2 oz) 138/87 Negative -?-?-?-?-?-?-?-?-?-?-?-?- Negative 150 37 Cephalic 0 -?-?-?-?-?-?-?-?-?-?-?-?- SM- no vb lof go od fm no regular ctx 12/22/24 -?-?-?-?-?-?-?-?-?-?-?--?- 37w 6d 293 lb (+67 lb) 119/83 Negative -?-?-?-?-?-?-?-?-?-?-?-?- Negative 140 38 Cephalic 0 -?-?-?-?-?-?-?-?-?-?-?-?- SM- no vb lof go od fm n oregular ctx 12/30/24 -?-?-?-?-?-?-?-?-?-?-?-?- 39w 0d 296 lb 4 oz (+70 lb 4 oz) 119/82 Negative -?-?-?-?-?-?-?-?-?-?-?-?- Negative 145 3 Cephalic 0 .5 -?-?-?-?-?-?-?-?-?-?-?-?- 50 -3 JV- no lof , vaginal bleeding, dec fm. JV- no lof, vaginal bleeding , dec fm. on PL q 3 month pr:cr ratio were to be collected. check from october is not recorded and patient is unable to void again today. discussed will likely need one next week or after delivery ACOG First Trimester First Trimester: Discussed Second Trimester Second Trimester: Signs and Symptoms of Labor, Selecting a care provider, Reproductive Life Planning & Contreception, Care Planning, Depression/Anxiety and Intimate Partner Violence; Discussed Tobacco Cessation Third Trimester Third Trimester: Pain Management Plans, Labor support person(s), Immediate Larc, Signs and Symptoms of Preeclampsia, Feeding No , [place] Education and Family Medical Leave or Disability Forms Results POC Urinalysis 2 Dip (Clinic) Office Urine Glucose Negative Last Edit by Monica Mabry on 12/30/24 15: 37 Office Urine Protein Negative Last Edit by Monica Mabry on 12/30/24 15: 37 Coding Level of Care Code OB Routine Diagnoses Kidney disease N28.9 Elevated serum creatinine R79.89 Congenital nywqft-lsdlgcd-upwop reflux Q62.7 Current every day nicotine vaping Z72.0 Obesity affecting in second trimester, unspecified obesity type O99.212 Obesity type affecting : unspecified obesity Trimester: second trimester Encounter for supervision of normal first in third trimester Z34.03 Trimester: third trimester 39 weeks gestation of Z3A.39 Weeks of gestation: 39 weeks Anxiety F41.9 FH: hemophilia Z83.2 Assessment and Plan Assessment and Plan (1) Kidney disease: Status: Acute (2) Elevated serum creatinine: Status: Acute Comment: with her reflux-runs just above normal. Follows with Dr Worley. Labs Q3mo:CMP and urine P/C ratio: 7/1: not done (3) Congenital uyewol-zotbclq-hiemi reflux: Status: Acute Comment: check urine func Q3 mo:CMP and urine PC ratio (4) Current every day nicotine vaping: Status: Acute Comment: Has decreased % of nicotine, considering quitting, smoking education provided (5) Obesity affecting : Status: Acute Qualifiers: Obesity type affecting : unspecified obesity Trimester: second trimester Qualified Code(s): O99.212 - Obesity complicating , second trimester Comment: HgbA1c (6) Supervision of normal first : Status: Acute Qualifiers: Trimester: third trimester Qualified Code(s): Z34.03 - Encounter for supervision of normal first , third trimester Comment: PRR, , TERRENCE 01/06[birth year]25,girl Shelbi Significant other Juan. nl anatomy (7) : Status: Acute Qualifiers: Weeks of gestation: 39 weeks Qualified Code(s): Z3A.39 - 39 weeks gestation of Comment: GBS Neg, NIPT low risk. nl anatomy (8) Anxiety: Status: Acute Comment: not medicated; stable (9) FH: hemophilia: Status: Acute Comment: Maternal Aunt, declined testing. the aunt has a different mom than her mom. Orders: Orders POC Urinalysis 2 Dip (Clinic) Today 12/30/24 1546 <Electronically signed by Susan Red DO> Date _ Susan Chavez DO [facility] Signature: Date (if applicable) CC: ~ [facility] Work Phone: [phone] [facility] [address] [place] [address], [address] [place] [id number] OFFICE VISIT Date of Service: 12/22/24 MR#: [id number] Acct: [id number] Name: LUCIANO KENDALL Rep #: [id number] : 2000 Provider: Dr. Marcio Mcintosh MD Age/Sex: 24/F Location: [facility] Status: Signed Intake Vital Signs 11/09/24 15:36 11/19/24 08:40 12/17/24 15:50 12/22/24 12:59 Height 5 ft 8 in 5 ft 8 in 5 ft 8 in 5 ft 8 in Weight: 293 lb BMI 44.5 BP 119/83 H Intake Visit Reasons: 38 wk ob Static Balancer Required: No Is patient in pain?: No Allergies No Known Allergies Allergy (Verified 12/22/24 13:01) Medications ?Medication ?Instructions ?Recorded ?Confirmed ?Type Bacillus coagulans 250 million 2 tab PO ONCE 05/26/24 12/22/24 History cell chewable tablet (Probiotic (B. coagulans)) PNV 153-FA 400 mcg-om3 35 mg-dha tab PO 05/26/2412/22 History 25 mg-epa 5 mg-fish oil chew tablet ascorbate calcium (vitamin C) 500 500 mg PO QDAY 05/2612/22/24 History mg tablet ferrous sulfate 137 mg (45 mg 137 mg PO QDAY 05/26/24 12/22/24 History iron) tablet,extended release (Slow Fe) ondansetron 4 mg disintegrating 4 mg PO Q4H PRN nausea and 08/04/24 12/22/24 Rx tablet vomiting #60 tabs Last Menstrual Period: 04/01/24 Zika: Zika virus screening: Negative : No PFSH PFSH Medical History Congenital ffbbdp-ufxbsex-jbdkj reflux Gallstones UTI (urinary tract infection) Asthma Surgical History Hx of cholecystectomy Hx of tonsillectomy Family History Father Diabetes Type 1 Aunt Thyroid disorder Maternal Mother Thyroid disorder enlarged Grandmother Breast cancer Paternal Social History adopted: No household members: significant other 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al status: employed 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 OB Visit TERRENCE Calculator Estimated Delivery Date Method Current WG Current Estimate 01/06/25 LMP (Certain) 37w 6d Other Estimates 01/09/25 Ultrasound #1 37w 3d Expected Delivery Route/Plan Labor Preferences- CB/BF classes: encouraged- will take online labor support person: Wesley labor intervention preferences: epidural pain management options preferred: [] cut cord/dad catch: maybe cord : yes PP control planned: discussed discussed possible routes of delivery and associated risks: [] special requests: [] Specific Issue/Plans Covid status: [] Flu vaccine: [] Tdap vaccine: 10/27/24 Rhogam: NA LARC form signed: yes movement and labor precautions reviewed. Problem list reviewed and updated with the most current plan of care details and appropriate ordersplaced. Relevant counseling for the gestational age provided. Continue routine care and follow up unless otherwise noted in visit notes/problem list details Initial Weight: 226 lb Date -?-?-?-?-?-?-?-?-?-?-?-?- EGA Weight BP Urine Prot -?-?-?-?-?-?-?-?-?-?-?-?- Glucose FHR FuHt Pres Dilation -?-?-?-?-?-?-?-?-?-?-?-?- Effaced St Visit Note 06/04/24 -?-?-?-?-?-?-?-?-?-?-?-?- 9w 1d 226 lb 4 oz (+4 oz) 128/82 -?-?-?-?-?-?-?-?-?-?-?-?- 175 -?-?-?-?-?-?-?-?-?-?-?-?- KW- CRL cons wit h dates. accepts nipt. 07/07/24 -?-?-?-?-?-?-?-?-?-?-?-?- 13w 6d 228 lb 8 oz (+2 lb 8 oz) 131/84 Negative -?-?-?-?-?-?-?-?-?-?-?-?- Negative 145 -?-?-?-?-?-?-?-?-?-?-?-?- Sm- no vb crampi ng 08/04/24 -?-?-?-?-?-?-?-?-?-?-?-?- 17w 6d 235 lb 6 oz (+9 lb 6 oz) 124/82 -?-?-?-?-?-?-?-?-?-?-?-?- 153 -?-?-?-?-?-?-?-?-?-?-?-?- MH-No VB. Reques ts labs for urinary reflux today:does q3mo. Denies UTI sx. Alexandra sent:going on cruise. 09/01/24 -?-?-?-?-?-?-?-?-?-?-?-?- 21w 6d 246 lb 2 oz (+20 lb 2 oz) 125/81 Negative -?-?-?-?-?-?-?-?-?-?-?-?- Negative 145 -?-?-?-?-?-?-?-?-?-?-?-?- JV- no lof, vagi nal bleeding and feeling some movements. has anterior placenta. Has lots of heart burn. will start pepcid. anatomy scan reviewed . 09/28/24 -?-?-?-?-?-?-?-?-?-?-?-?- 25w 5d 262 lb (+36 lb) 122/76 Negative -?-?-?-?-?-?-?-?-?-?-?-?- Negative 141 -?-?-?-?-?-?-?-?-?-?-?-?- No VB. Good FM. URI and saw Urgent care and starting amoxil. Enc rest, fluids etc. 10/27/24 -?-?-?-?-?-?-?-?-?-?-?-?- 29w 6d 265 lb 4 oz (+39 lb 4 oz) 133/87 Negative -?-?-?-?-?-?-?-?-?-?-?-?- Negative 142 30 -?-?-?-?-?-?-?-?-?-?-?-?- MH-No Vb, LOF. G ood FM. Tdap 11/09/24 -?-?-?-?-?-?-?-?-?-?-?-?- 31w 5d 273 lb 4 oz (+47 lb 4 oz) 133/84 Negative -?-?-?-?-?-?-?-?-?-?-?-?- Negative 140 32 -?-?-?-?-?-?-?-?-?-?-?-?- SM- no vb lof go od fm no regular ctx reviewed good nutrition in 11/19/24 -?-?-?-?-?-?-?-?-?-?-?-?- 33w 1d 272 lb 6 oz (+46 lb 6 oz) 126/84 Negative -?-?-?-?-?-?-?-?-?-?-?-?- Negative 140 33 -?-?-?-?-?-?-?-?-?-?-?-?- SM- no vb lof go od fm no regular ctx 11/27/24 -?-?-?-?-?-?-?-?-?-?-?-?- 34w 2d 282 lb 3 oz (+56 lb 3 oz) 138/85 Negative -?-?-?-?-?-?-?-?-?-?-?-?- Negative 145 34 -?-?-?-?-?-?-?-?-?-?-?-?- SM- n ovb lof go od f mn oregualr ctx 12/08/24 -?-?-?-?-?-?-?-?-?-?-?-?- 35w 6d 286 lb 8 oz (+60 lb 8 oz) 130/82 Negative -?-?-?-?-?-?-?-?-?-?-?-?- Negative 160 36 -?-?-?-?-?-?-?-?-?-?-?-?- KW- no vb/lof/ct x. good fm discussed gbs for next week. 12/17/24 -?-?-?-?-?-?-?-?-?-?-?-?- 37w 1d 291 lb 2 oz (+65 lb 2 oz) 138/87 Negative -?-?-?-?-?-?-?-?-?-?-?-?- Negative 150 37 Cephalic 0 -?-?-?-?-?-?-?-?-?-?-?-?- SM- no vb lof go od fm no regular ctx 12/22/24 -?-?-?-?-?-?-?-?-?-?-?-?- 37w 6d 293 lb (+67 lb) 119/83 Negative -?-?-?-?-?-?-?-?-?-?-?-?- Negative 140 38 Cephalic 0 -?-?-?-?-?-?-?-?-?-?-?-?- SM- no vb lof go od fm n oregular ctx ACOG First Trimester First Trimester: Discussed Second Trimester Second Trimester: Signs and Symptoms of Labor, Selecting a care provider, Reproductive Life Planning & Contreception, Care Planning, Depression/Anxiety and Intimate Partner Violence; Discussed Tobacco Cessation Third Trimester Third Trimester: Pain Management Plans, Labor support person(s), Immediate Larc, Signs and Symptoms of Preeclampsia, Feeding No , Education and Family Medical Leave or Disability Forms ROS Const Denies fever(s) GI Reports as per HPI and Denies abdominal pain Reports as per HPI, Denies abnormal vaginal bleeding, Denies dysuria and Denies vaginal discharge Exam Const General: healthy appearing, comfortable and no acute distress GI Inspection: normal to inspection Palpation: soft and nontender Results POC Urinalysis 2 Dip (Clinic) Office Urine Glucose Negative Last Edit by Jennifer Rae on 12/22/24 13:10 Office Urine Protein Negative Last Edit by Jennifer Rae on 12/22/24 13:10 Coding Level of Care Code OB Routine Diagnoses Kidney disease N28.9 Elevated serum creatinine R79.89 Congenital yhzcdp-cnrzhbr-hxirz reflux Q62.7 Current every day nicotine vaping Z72.0 Obesity affecting in second trimester, unspecified obesity type O99.212 Obesity type affecting : unspecified obesity Trimester: second trimester Encounter for supervision of normal first in third trimester Z34.03 Trimester: third trimester 37 weeks gestation of Z3A.37 Weeks of gestation: 37 weeks Anxiety F41.9 FH: hemophilia Z83.2 Assessment and Plan Assessment and Plan (1) Kidney disease: Status: Acute (2) Elevated serum creatinine: Status: Acute Comment: with her reflux-runs just above normal. Follows with Dr Worley. Labs Q3mo:CMP and urine P/C ratio:7/1: (3) Congenital hztqrh-jvjudhp-xjxas reflux: Status: Acute Comment: check urine func Q3 mo:CMP and urine PC ratio (4) Current every day nicotine vaping: Status: Acute Comment: Has decreased % of nicotine, considering quitting, smoking education provided (5) Obesity affecting : Status: Acute Qualifiers: Obesity type affecting : unspecified obesity Trimester: second trimester Qualified Code(s): O99.212 - Obesity complicating , second trimester Comment: HgbA1c (6) Supervision of normal first : Status: Acute Qualifiers: Trimester: third trimester Qualified Code(s): Z34.03 - Encounter for supervision of normal first , third trimester Comment: PRR, , TERRENCE 01/[birth year]25,girl Shelbi Significant other Juan. nl anatomy (7) : Status: Acute Qualifiers: Weeks of gestation: 37 weeks Qualified Code(s): Z3A.37 - 37 weeks gestation of Comment: GBS Neg, NIPT low risk. nl anatomy (8) Anxiety: Status: Acute Comment: not medicated; stable (9) FH: hemophilia: Status: Acute Comment: Maternal Aunt, declined testing. the aunt has a different mom than her mom. Orders: Orders POC Urinalysis 2 Dip (Clinic) Today 12/22/24 1320 nate PITTMAN> Date _ Nita Mcintosh MD [facility] Signature: Date (if applicable) CC: ~ [id number] [facility] [address] [place] [address], [address] [place] [address] OFFICE VISIT Date of Service: 12/17/24 MR#: [id number] Acct: [id number] Name: LUCIANO KENDALL Rep #: [id number] : 2000 Provider: Dr. Marcio Mcintosh MD Age/Sex: 24/F Location: [facility] Status: Signed Intake Vital Signs 11/09/24 15:36 12/08/24 09:37 12/17/24 15:48 12/17/24 15:50 Height 5 ft 8 in 5 ft 8 in 5 ft 8 in 5 ft 8 in Weight: 291 lb 2 oz BMI 44.2 BP 138/87 H Intake Visit Reasons: 37 wk ob Static Balancer Required: No Is patient in pain?: No Allergies No Known Allergies Allergy (Verified 12/17/24 15:47) Medications ?Medication ?Instructions ?Recorded ?Confirmed ?Type Bacillus coagulans 250 million 2 tab PO ONCE 05/26/24 12/17/24 History cell chewable tablet (Probiotic (B. coagulans)) PNV 153-FA 400 mcg-om3 35 mg-dha tab PO 05/26/2412/17 History 25 mg-epa 5 mg-fish oil chew tablet ascorbate calcium (vitamin C) 500 500 mg PO QDAY 05/2612/17/24 History mg tablet ferrous sulfate 137 mg (45 mg 137 mg PO QDAY 05/26/24 12/17/24 History iron) tablet,extended release (Slow Fe) ondansetron 4 mg disintegrating 4 mg PO Q4H PRN nausea and 08/04/24 12/17/24 Rx tablet vomiting #60 tabs Last Menstrual Period: 04/01/24 Zika: Zika virus screening: Negative : No PFSH PFSH Medical History Congenital vmwljb-brzsqtp-jnowh reflux Gallstones UTI (urinary tract infection) Asthma Surgical History Hx of cholecystectomy Hx of tonsillectomy Family History Father Diabetes Type 1 Aunt Thyroid disorder Maternal Mother Thyroid disorder enlarged Grandmother Breast cancer Paternal Social History adopted: No household members: significant other 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al status: employed 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[employer] Lab 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al exposures/hazards: No pets [...] 1-2 times per week duration: 60-90 minutes/day sid/buddhism: None seatbelt use: always do you feel safe at home: Yes additional social history: significant other- Juan History 1 Elective abortions Hx Para 0 Spontaneous abortions Hx # Term Pregnancies Ectopic pregnancies Hx # Pregnancies Multiple births # of living children HPI 37 wk ob Details: LUCIANO KENDALL is a 24 year old who presents for routine OB visit. OB Visit TERRENCE Calculator Estimated Delivery Date Method Current WG Current Estimate 01/06/25 LMP (Certain) 37w 1d Other Estimates 01/09/25 Ultrasound #1 36w 5d Expected Delivery Route/Plan Labor Preferences- CB/BF classes: encouraged- will take online labor support person: Wesley labor intervention preferences: epidural pain management options preferred: [] cut cord/dad catch: maybe cord : yes PP control planned: discussed discussed possible routes of delivery and associated risks: [] special requests: [] Specific Issue/Plans Covid status: [] Flu vaccine: [] Tdap vaccine: 10/27/24 Rhogam: NA LARC form signed: yes movement and labor precautions reviewed. Problem list reviewed and updated with the most current plan of care details and appropriate ordersplaced. Relevant counseling for the gestational age provided. Continue routine care and follow up unless otherwise noted in visit notes/problem list details Initial Weight: 226 lb Date -?-?-?-?-?-?-?-?-?-?-?-?- EGA Weight BP Urine Prot -?-?-?-?-?-?-?-?-?-?-?-?- Glucose FHR FuHt Pres Dilation -?-?-?-?-?-?-?-?-?-?-?-?- Effaced St Visit Note 06/04/24 -?-?-?-?-?-?-?-?-?-?-?-?- 9w 1d 226 lb 4 oz (+4 oz) 128/82 -?-?-?-?-?-?-?-?-?-?-?-?- 175 -?-?-?-?-?-?-?-?-?-?-?-?- KW- CRL cons wit h dates. accepts nipt. 07/07/24 -?-?-?-?-?-?-?-?-?-?-?-?- 13w 6d 228 lb 8 oz (+2 lb 8 oz) 131/84 Negative -?-?-?-?-?-?-?-?-?-?-?-?- Negative 145 -?-?-?-?-?-?-?-?-?-?-?-?- Sm- no vb crampi ng 08/04/24 -?-?-?-?-?-?-?-?-?-?--?-?- 17w 6d 235 lb 6 oz (+9 lb 6 oz) 124/82 -?-?-?-?-?-?-?-?-?-?-?-?- 153 -?-?-?-?-?-?-?-?-?-?-?-?- MH-No VB. Reques ts labs for urinary reflux today:does q3mo. Denies UTI sx. Alexandra sent:going on cruise. 09/01/24 -?-?-?-?-?-?-?-?-?-?-?-?- 21w 6d 246 lb 2 oz (+20 lb 2 oz) 125/81 Negative -?-?-?-?-?-?-?-?-?-?-?-?- Negative 145 -?-?-?-?-?-?-?-?-?-?-?-?- JV- no lof, vagi nal bleeding and feeling some movements. has anterior placenta. Has lots of heart burn. will start pepcid. anatomy scan reviewed . 09/28/24 -?-?-?-?-?-?-?-?-?-?-?-?- 25w 5d 262 lb (+36 lb) 122/76 Negative -?-?-?-?-?-?-?-?-?-?-?-?- Negative 141 -?-?-?-?-?-?-?-?-?-?-?-?- No VB. Good FM. URI and saw Urgent care and starting amoxil. Enc rest, fluids etc. 10/27/24 -?-?-?-?-?-?-?-?-?-?-?-?- 29w 6d 265 lb 4 oz (+39 lb 4 oz) 133/87 Negative -?-?-?-?-?-?-?-?-?-?-?-?- Negative 142 30 -?-?-?-?-?-?-?-?-?-?-?-?- MH-No Vb, LOF. G ood FM. Tdap 11/09/24 -?-?-?-?-?-?-?-?-?-?-?-?- 31w 5d 273 lb 4 oz (+47 lb 4 oz) 133/84 Negative -?-?-?-?-?-?-?-?-?-?-?-?- Negative 140 32 -?-?-?-?-?-?-?-?-?-?-?-?- SM- no vb lof go od fm no regular ctx reviewed good nutrition in 11/19/24 -?-?-?-?-?-?-?-?-?-?-?-?- 33w 1d 272 lb 6 oz (+46 lb 6 oz) 126/84 Negative -?-?-?-?-?-?-?-?-?-?-?-?- Negative 140 33 -?-?-?-?-?-?-?-?-?-?-?-?- SM- no vb lof go od fm no regular ctx 11/27/24 -?-?-?-?-?-?-?-?-?-?-?-?- 34w 2d 282 lb 3 oz (+56 lb 3 oz) 138/85 Negative -?-?-?-?-?-?-?-?-?-?-?-?- Negative 145 34 -?-?-?-?-?-?-?-?-?-?-?-?- SM- n ovb lof go od f mn oregualr ctx 12/08/24 -?-?-?-?-?-?-?-?-?-?-?-?- 35w 6d 286 lb 8 oz (+60 lb 8 oz) 130/82 Negative -?-?-?-?-?-?-?-?-?-?-?-?- Negative 160 36 -?-?-?-?-?-?-?-?-?-?-?-?- KW- no vb/lof/ct x. good fm discussed gbs for next week. 12/17/24 -?-?-?-?-?-?-?-?-?-?-?-?- 37w 1d 291 lb 2 oz (+65 lb 2 oz) 138/87 Negative -?-?-?-?-?-?-?-?-?-?-?-?- Negative 150 37 Cephalic 0 -?-?-?-?-?-?-?-?-?-?-?-?- SM- no vb lof go od fm no regular ctx ACOG First Trimester First Trimester: Discussed Second Trimester Second Trimester: Signs and Symptoms of Labor, Selecting a care provider, Reproductive Life Planning & Contreception, Care Planning, Depression/Anxiety and Intimate Partner Violence; Discussed Tobacco Cessation Third Trimester Third Trimester: Pain Management Plans, Labor support person(s), Immediate Larc, Signs and Symptoms of Preeclampsia, Feeding No , Education and Family Medical Leave or Disability Forms Results POC Urinalysis 2 Dip (Clinic) Office Urine Glucose Negative Last Edit by Jennifer Rae on 12/17/24 15:52 Office Urine Protein Negative Last Edit by Jennifer Rae on 12/17/24 15:52 Coding Level of Care Code OB Routine Diagnoses Kidney disease N28.9 Elevated serum creatinine R79.89 Congenital vllsqc-mdbzoic-mkpbg reflux Q62.7 Current every day nicotine vaping Z72.0 Obesity affecting in second trimester, unspecified obesity type O99.212 Obesity type affecting : unspecified obesity Trimester: second trimester Encounter for supervision of normal first in third trimester Z34.03 Trimester: third trimester 37 weeks gestation of Z3A.37 Weeks of gestation: 37 weeks Anxiety F41.9 FH: hemophilia Z83.2 Assessment and Plan Assessment and Plan (1) Kidney disease: Status: Acute (2) Elevated serum creatinine: Status: Acute Comment: with her reflux-runs just above normal. Follows with Dr Worley. Labs Q3mo:CMP and urine P/C ratio:7/1: (3) Congenital cwsgql-wdpngpf-oxxop reflux: Status: Acute Comment: check urine func Q3 mo:CMP and urine PC ratio (4) Current every day nicotine vaping: Status: Acute Comment: Has decreased % of nicotine, considering quitting, smoking education provided (5) Obesity affecting : Status: Acute Qualifiers: Obesity type affecting : unspecified obesity Trimester: second trimester Qualified Code(s): O99.212 - Obesity complicating , second trimester Comment: HgbA1c (6) Supervision of normal first : Status: Acute Qualifiers: Trimester: third trimester Qualified Code(s): Z34.03 - Encounter for supervision of normal first , third trimester Comment: PRR, , TERRENCE 01/06/25,girl Shelbi Significant other Juan. nl anatomy (7) : Status: Acute Qualifiers: Weeks of gestation: 37 weeks Qualified Code(s): Z3A.37 - 37 weeks gestation of Comment: NIPT low risk. nl anatomy (8) Anxiety: Status: Acute Comment: not medicated; stable (9) FH: hemophilia: Status: Acute Comment: Maternal Aunt, declined testing. the aunt has a different mom than her mom. Orders: Orders POC Urinalysis 2 Dip (Clinic) Today Culture, Group B Streptococcus Today Z34.03 - Encounter for supervision of normal first , third trimester 12/17/24 2373 nate PITTMAN> Date _ Nita Mcintosh MD [employer] Signature: Date (if applicable) CC: ~ [facility] [place] [facility]08-21-2025 Progress note Author Nita Mcintosh [facility] Note Date/Time December 17, 2024 4: 37pm [facility] [address] [place] [address], [address] [place] [address] OFFICE VISIT Date of Service: 12/17/24 MR#: [id number] Acct: [id number] Name: LUCIANO KENDALL Rep #: [id number] : 2000 Provider: Dr. Marcio Mcintosh MD Age/Sex: 24/F Location: [facility] Status: Signed Intake Vital Signs 11/09/24 15:36 12/08/24 09:37 12/17/24 15:48 12/17/24 15:50 Height 5 ft 8 in 5 ft 8 in 5 ft 8 in 5 ft 8 in Weight: 291 lb 2 oz BMI 44.2 BP 138/87 H Intake Visit Reasons: 37 wk ob Static Balancer Required: No Is patient in pain?: No Allergies No Known Allergies Allergy (Verified 12/17/24 15:47) Medications ?Medication ?Instructions ?Recorded ?Confirmed ?Type Bacillus coagulans 250 million 2 tab PO ONCE 05/26/24 12/17/24 History cell chewable tablet (Probiotic (B. coagulans)) PNV 153-FA 400 mcg-om3 35 mg-dha tab PO 05/26/2412/17 History 25 mg-epa 5 mg-fish oil chew tablet ascorbate calcium (vitamin C) 500 500 mg PO QDAY 05/2612/17/24 History mg tablet ferrous sulfate 137 mg (45 mg 137 mg PO QDAY 05/26/24 12/17/24 History iron) tablet,extended release (Slow Fe) ondansetron 4 mg disintegrating 4 mg PO Q4H PRN nausea and 08/04/24 12/17/24 Rx tablet vomiting #60 tabs Last Menstrual Period: 04/01/24 Zika: Zika virus screening: Negative : No PFSH PFSH Medical History Congenital qkjsnm-hkmwpvs-pxslz reflux Gallstones UTI (urinary tract infection) Asthma Surgical History Hx of cholecystectomy Hx of tonsillectomy Family History Father Diabetes Type 1 Aunt Thyroid disorder Maternal Mother Thyroid disorder enlarged Grandmother Breast cancer Paternal Social History adopted: No household members: significant other 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al status: employed 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[employer] Lab 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al exposures/hazards: No pets [...] 1-2 times per week duration: 60-90 minutes/day sid/buddhism: None seatbelt use: always do you feel safe at home: Yes additional social history: significant other- Juan History 1 Elective abortions Hx Para 0 Spontaneous abortions Hx # Term Pregnancies Ectopic pregnancies Hx # Pregnancies Multiple births # of living children HPI 37 wk ob Details: LUCIANO KENDALL is a 24 year old who presents for routine OB visit. OB Visit TERRENCE Calculator Estimated Delivery Date Method Current WG Current Estimate 01/06/25 LMP (Certain) 37w 1d Other Estimates 01/09/25 Ultrasound #1 36w 5d Expected Delivery Route/Plan Labor Preferences- CB/BF classes: encouraged- will take online labor support person: Wesley labor intervention preferences: epidural pain management options preferred: [] cut cord/dad catch: maybe cord : yes PP control planned: discussed discussed possible routes of delivery and associated risks: [] special requests: [] Specific Issue/Plans Covid status: [] Flu vaccine: [] Tdap vaccine: 10/27/24 Rhogam: NA LARC form signed: yes movement and labor precautions reviewed. Problem list reviewed and updated with the most current plan of care details and appropriate orders placed. Relevant counseling for the gestational age provided. Continue routine care and follow up unless otherwise noted in visit notes/problem list details Initial Weight: 226 lb Date -?-?-?-?-?-?-?-?-?-?-?-?- EGA Weight BP Urine Prot -?-?-?-?-?-?-?-?-?-?-?-?- Glucose FHR FuHt Pres Dilation -?-?-?-?-?-?-?-?-?-?-?-?- Effaced St Visit Note 06/04/24 -?-?-?-?-?-?-?-?-?-?-?-?- 9w 1d 226 lb 4 oz (+4 oz) 128/82 -?-?-?-?-?-?-?-?-?-?-?-?- 175 -?-?-?-?-?-?-?-?-?-?-?-?- KW- CRL cons wit h dates. accepts nipt. 07/07/24 -?-?-?-?-?-?-?-?-?-?-?-?- 13w 6d 228 lb 8 oz (+2 lb 8 oz) 131/84 Negative -?-?-?-?-?-?-?-?-?-?-?-?- Negative 145 -?-?-?-?-?-?-?-?-?-?-?-?- Sm- no vb crampi ng 08/04/24 -?-?-?-?-?-?-?-?-?-?--?-?- 17w 6d 235 lb 6 oz (+9 lb 6 oz) 124/82 -?-?-?-?-?-?-?-?-?-?-?-?- 153 -?-?-?-?-?-?-?-?-?-?-?-?- MH-No VB. Reques ts labs for urinary reflux today:does q3mo. Denies UTI sx. Alexandra sent:going on cruise. 09/01/24 -?-?-?-?-?-?-?-?-?-?-?-?- 21w 6d 246 lb 2 oz (+20 lb 2 oz) 125/81 Negative -?-?-?-?-?-?-?-?-?-?-?-?- Negative 145 -?-?-?-?-?-?-?-?-?-?-?-?- JV- no lof, vagi nal bleeding and feeling some movements. has anterior placenta. Has lots of heart burn. will start pepcid. anatomy scan reviewed . 09/28/24 -?-?-?-?-?-?-?-?-?-?-?-?- 25w 5d 262 lb (+36 lb) 122/76 Negative -?-?-?-?-?-?-?-?-?-?-?-?- Negative 141 -?-?-?-?-?-?-?-?-?-?-?-?- No VB. Good FM. URI and saw Urgent care and starting amoxil. Enc rest, fluids etc. 10/27/24 -?-?-?-?-?-?-?-?-?-?-?-?- 29w 6d 265 lb 4 oz (+39 lb 4 oz) 133/87 Negative -?-?-?-?-?-?-?-?-?-?-?-?- Negative 142 30 -?-?-?-?-?-?-?-?-?-?-?-?- MH-No Vb, LOF. G ood FM. Tdap 11/09/24 -?-?-?-?-?-?-?-?-?-?-?-?- 31w 5d 273 lb 4 oz (+47 lb 4 oz) 133/84 Negative -?-?-?-?-?-?-?-?-?-?-?-?- Negative 140 32 -?-?-?-?-?-?-?-?-?-?-?-?- SM- no vb lof go od fm no regular ctx reviewed good nutrition in 11/19/24 -?-?-?-?-?-?-?-?-?-?-?-?- 33w 1d 272 lb 6 oz (+46 lb 6 oz) 126/84 Negative -?-?-?-?-?-?-?-?-?-?-?-?- Negative 140 33 -?-?-?-?-?-?-?-?-?-?-?-?- SM- no vb lof go od fm no regular ctx 11/27/24 -?-?-?-?-?-?-?-?-?-?-?-?- 34w 2d 282 lb 3 oz (+56 lb 3 oz) 138/85 Negative -?-?-?-?-?-?-?-?-?-?-?-?- Negative 145 34 -?-?-?-?-?-?-?-?-?-?-?-?- SM- n ovb lof go od f mn oregualr ctx 12/08/24 -?-?-?-?-?-?-?-?-?-?-?-?- 35w 6d 286 lb 8 oz (+60 lb 8 oz) 130/82 Negative -?-?-?-?-?-?-?-?-?-?-?-?- Negative 160 36 -?-?-?-?-?-?-?-?-?-?-?-?- KW- no vb/lof/ct x. good fm discussed gbs for next week. 12/17/24 -?-?-?-?-?-?-?-?-?-?-?-?- 37w 1d 291 lb 2 oz (+65 lb 2 oz) 138/87 Negative -?-?-?-?-?-?-?-?-?-?-?-?- Negative 150 37 Cephalic 0 -?-?-?-?-?-?-?-?-?-?-?-?- SM- no vb lof go od fm no regular ctx [facility] Trimester First Trimester: Discussed Second Trimester Second Trimester: Signs and Symptoms of Labor, Selecting a care provider, Reproductive Life Planning & Contreception, Care Planning, Depression/Anxiety and Intimate Partner Violence; Discussed Tobacco Cessation Third Trimester Third Trimester: Pain Management Plans, Labor support person(s), Immediate Larc, Signs and Symptoms of Preeclampsia, Infant Feeding No , [place] Education and Family Medical Leave or Disability Forms Results POC Urinalysis 2 Dip (Clinic) Office Urine Glucose Negative Last Edit by Jennifer Rae on 12/17/24 15:52 Office Urine Protein Negative Last Edit by Jennifer Rae on 12/17/24 15:52 Coding Level of Care Code OB Routine Diagnoses Kidney disease N28.9 Elevated serum creatinine R79.89 Congenital urtafy-usslghz-lxbbu reflux Q62.7 Current every day nicotine vaping Z72.0 Obesity affecting in second trimester, unspecified obesity type O99.212 Obesity type affecting : unspecified obesity Trimester: second trimester Encounter for supervision of normal first in third trimester Z34.03 Trimester: third trimester 37 weeks gestation of Z3A.37 Weeks of gestation: 37 weeks Anxiety F41.9 FH: hemophilia Z83.2 Assessment and Plan Assessment and Plan (1) Kidney disease: Status: Acute (2) Elevated serum creatinine: Status: Acute Comment: with her reflux-runs just above normal. Follows with Dr Worley. Labs Q3mo:CMP and urine P/C ratio: 7/1: (3) Congenital szaegj-olfzdsi-awrop reflux: Status: Acute Comment: check urine func Q3 mo:CMP and urine PC ratio (4) Current every day nicotine vaping: Status: Acute Comment: Has decreased % of nicotine, considering quitting, smoking education provided (5) Obesity affecting : Status: Acute Qualifiers: Obesity type affecting : unspecified obesity Trimester: second trimester Qualified Code(s): O99.212 - Obesity complicating , second trimester Comment: HgbA1c (6) Supervision of normal first : Status: Acute Qualifiers: Trimester: third trimester Qualified Code(s): Z34.03 - Encounter for supervision of normal first , third trimester Comment: PRR, , TERRENCE 01/06/25,girl Juniper Significant other Juan. nl anatomy (7) : Status: Acute Qualifiers: Weeks of gestation: 37 weeks Qualified Code(s): Z3A.37 - 37 weeks gestation of Comment: NIPT low risk. nl anatomy (8) Anxiety: Status: Acute Comment: not medicated; stable (9) FH: hemophilia: Status: Acute Comment: Maternal Aunt, declined testing. the aunt has a different mom than her mom. Orders: Orders POC Urinalysis 2 Dip (Clinic) Today Culture, Group B Streptococcus Today Z34.03 - Encounter for supervision of normal first , third trimester 12/17/24 7605 <Electronically signed by Nita sullivan MD> Date _ Nita Mcintosh MD [facility] Signature: Date (if applicable) CC: ~ [facility] Work Phone: [phone] [facility] [address] [place] [address], [address] [place] [address] OFFICE VISIT Date of Service: 12/08/24 MR#: [id number] Acct: [id number] Name: LUCIANO KENDALL Rep #: [id number] : 2000 Provider: ALEXANDRA Solomon Age/Sex: 24/F Location: [facility] Status: Signed Intake Vital Signs 10/27/24 13:28 11/27/24 14:23 12/08/24 09:37 Height 5 ft 8 in 5 ft 8 in 5 ft 8 in Weight: 286 lb 8 oz BMI 43.5 BP 130/82 H Intake Visit Reasons: 36wk ob Chief Complaint: 36wk ob Static Balancer Required: No Is patient in pain?: No Allergies No Known Allergies Allergy (Verified 12/08/24 09:33) Medications ?Medication ?Instructions ?Recorded ?Confirmed ?Type Bacillus coagulans 250 million 2 tab PO ONCE 05/26/24 12/08/24 History cell chewable tablet (Probiotic (B. coagulans)) PNV 153-FA 400 mcg-om3 35 mg-dha tab PO 05/26/2412/08 History 25 mg-epa 5 mg-fish oil chew tablet ascorbate calcium (vitamin C) 500 500 mg PO QDAY 05/2612/08/24 History mg tablet ferrous sulfate 137 mg (45 mg 137 mg PO QDAY 05/26/24 12/08/24 History iron) tablet,extended release (Slow Fe) ondansetron 4 mg disintegrating 4 mg PO Q4H PRN nausea and 08/04/24 12/08/24 Rx tablet vomiting #60 tabs Last Menstrual Period: 04/01/24 : No Have you fallen in the past year?: No PFSH PFSH Medical History Congenital mcxqad-dksihcf-dctnh reflux Gallstones UTI (urinary tract infection) Asthma Surgical History Hx of cholecystectomy Hx of tonsillectomy Family History Father Diabetes Type 1 Aunt Thyroid disorder Maternal Mother Thyroid disorder enlarged Grandmother Breast cancer Paternal Social History adopted: No household members: significant other 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al status: employed 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[employer] Lab 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al exposures/hazards: No pets [...] 1-2 times per week duration: 60-90 minutes/day sid/buddhism: None seatbelt use: always do you feel safe at home: Yes additional social history: significant other- Juan History 1 Elective abortions Hx Para 0 Spontaneous abortions Hx # Term Pregnancies Ectopic pregnancies Hx # Pregnancies Multiple births # of living children HPI 36wk ob Details: LUCIANO KENDALL is a 24 year old who presents for routine OB visit. OB Visit TERRENCE Calculator Estimated Delivery Date Method Current WG Current Estimate 01/06/25 LMP (Certain) 35w 6d Other Estimates 01/09/25 Ultrasound #1 35w 3d Expected Delivery Route/Plan Labor Preferences- CB/BF classes: encouraged- will take online labor support person: Wesley labor intervention preferences: epidural pain management options preferred: [] cut cord/dad catch: maybe cord : yes PP control planned: discussed discussed possible routes of delivery and associated risks: [] special requests: [] Specific Issue/Plans Covid status: [] Flu vaccine: [] Tdap vaccine: 10/27/24 Rhogam: NA LARC form signed: yes movement and labor precautions reviewed. Problem list reviewed and updated with the most current plan of care details and appropriate ordersplaced. Relevant counseling for the gestational age provided. Continue routine care and follow up unless otherwise noted in visit notes/problem list details Initial Weight: 226 lb Date -?-?-?-?-?-?-?-?-?-?-?-?- EGA Weight BP Urine Prot -?-?-?-?-?-?-?-?-?-?-?-?- Glucose FHR FuHt Pres Dilation -?-?-?-?-?-?-?-?-?-?-?-?- Effaced St Visit Note 06/04/24 -?-?-?-?-?-?-?-?-?-?-?-?- 9w 1d 226 lb 4 oz (+4 oz) 128/82 -?-?-?-?-?-?-?-?-?-?-?-?- 175 -?-?-?-?-?-?-?-?-?-?-?-?- KW- CRL cons wit h dates. accepts nipt. 07/07/24 -?-?-?-?-?-?-?-?-?-?-?-?- 13w 6d 228 lb 8 oz (+2 lb 8 oz) 131/84 Negative -?-?-?-?-?-?-?-?-?-?-?-?- Negative 145 -?-?-?-?-?-?-?-?-?-?-?-?- Sm- no vb crampi ng 08/04/24 -?-?-?-?-?-?-?-?-?-?-?-?- 17w 6d 235 lb 6 oz (+9 lb 6 oz) 124/82 -?-?-?-?-?-?-?-?-?-?-?-?- 153 -?-?-?-?-?-?-?-?-?-?-?-?- MH-No VB. Reques ts labs for urinary reflux today:does q3mo. Denies UTI sx. Alexandra sent:going on cruise. 09/01/24 -?-?-?-?-?-?-?-?-?-?-?-?- 21w 6d 246 lb 2 oz (+20 lb 2 oz) 125/81 Negative -?-?-?-?-?-?-?-?-?-?-?-?- Negative 145 -?-?-?-?-?-?-?-?-?-?-?-?- JV- no lof, vagi nal bleeding and feeling some movements. has anterior placenta. Has lots of heart burn. will start pepcid. anatomy scan reviewed . 09/28/24 -?-?-?-?-?-?-?-?-?-?-?-?- 25w 5d 262 lb (+36 lb) 122/76 Negative -?-?-?-?-?-?-?-?-?-?-?-?- Negative 141 -?-?-?-?-?-?-?-?-?-?-?-?- No VB. Good FM. URI and saw Urgent care and starting amoxil. Enc rest, fluids etc. 10/27/24 -?-?-?-?-?-?-?-?-?-?-?-?- 29w 6d 265 lb 4 oz (+39 lb 4 oz) 133/87 Negative -?-?-?-?-?-?-?-?-?-?-?-?- Negative 142 30 -?-?-?-?-?-?-?-?-?-?-?-?- MH-No Vb, LOF. G ood FM. Tdap 11/09/24 -?-?-?-?-?-?-?-?-?-?-?-?- 31w 5d 273 lb 4 oz (+47 lb 4 oz) 133/84 Negative -?-?-?-?-?-?-?-?-?-?-?-?- Negative 140 32 -?-?-?-?-?-?-?-?-?-?-?-?- SM- no vb lof go od fm no regular ctx reviewed good nutrition in 11/19/24 -?-?-?-?-?-?-?-?-?-?-?-?- 33w 1d 272 lb 6 oz (+46 lb 6 oz) 126/84 Negative -?-?-?-?-?-?-?-?-?-?-?-?- Negative 140 33 -?-?-?-?-?-?-?-?-?-?-?-?- SM- no vb lof go od fm no regular ctx 11/27/24 -?-?-?-?-?-?-?-?-?-?-?-?- 34w 2d 282 lb 3 oz (+56 lb 3 oz) 138/85 Negative -?-?-?-?-?-?-?-?-?-?-?-?- Negative 145 34 -?-?-?-?-?-?-?-?-?-?-?-?- SM- n ovb lof go od f mn oregualr ctx 12/08/24 -?-?-?-?-?-?-?-?-?-?-?-?- 35w 6d 286 lb 8 oz (+60 lb 8 oz) 130/82 Negative -?-?-?-?-?-?-?-?-?-?-?-?- Negative 160 36 -?-?-?-?-?-?-?-?-?-?-?-?- KW- no vb/lof/ct x. good fm discussed gbs for next week. ACOG First Trimester First Trimester: Discussed Second Trimester Second Trimester: Signs and Symptoms of Labor, Selecting a care provider, Reproductive Life Planning & Contreception, Care Planning, Depression/Anxiety and Intimate Partner Violence; Discussed Tobacco Cessation Third Trimester Third Trimester: Pain Management Plans, Labor support person(s), Immediate Larc, Signs and Symptoms of Preeclampsia, Infant Feeding No , Education and Family Medical Leave or Disability Forms ROS Const Reports system reviewed and no additional complaints, except as documented Eyes Reports system reviewed and no additional complaints, except as documented ENT Reports system reviewed and no additional complaints, except as documented Card Reports system reviewed and no additional complaints, except as documented Resp Reports system reviewed and no additional complaints, except as documented GI Reports system reviewed and no additional complaints, except as documented, Denies nausea and Denies vomiting Reports system reviewed and no additional complaints, except as documented Musc Reports system reviewed and no additional complaints, except as documented Skin/Breast Reports system reviewed and no additional complaints, except as documented Neuro Yes system reviewed and no additional complaints, except as documented Psych Reports system reviewed and no additional complaints, except as documented Endo Reports system reviewed and no additional complaints, except as documented Julian/Lymph Reports system reviewed and no additional complaints, except as documented Aller/Immun Reports system reviewed and no additional complaints, except as documented Exam Const General: cooperative, healthy appearing and no acute distress Orientation: alert, awake and oriented x3 Neck Neck: normal visual inspection and full ROM Resp Effort & Inspection: normal respiratory effort, able to speak in complete sentences and symmetric chest movement GI Inspection: normal to inspection Palpation: soft and other Other: gravid Skin General: no rashes or lesions noted Neuro General: patient alert, patient awake and patient oriented x3 Cognition: normal cognition Speech: speech normal Gait: normal gait Motor: muscle tone normal throughout Extrem General: normal to inspection and full ROM Psych Appearance: grossly normal Mental Status: mental status grossly normal Mood: congruent mood Affect: normal affect Speech and Movement: speech and movement normal Attitude: cooperative Thought Process: normal Thought Content: normal Judgment: judgment good Results POC Urinalysis 2 Dip (Clinic) Office Urine Glucose Negative Last Edit by Nanette Feliciano on 12/08/24 09:44 Office Urine Protein Negative Last Edit by Nanette Feliciano on 12/08/24 09:44 Coding Level of Care Code OB Routine Diagnoses Kidney disease N28.9 Elevated serum creatinine R79.89 Congenital zgozmy-jcaflht-fsysf reflux Q62.7 Current every day nicotine vaping Z72.0 Obesity affecting in second trimester, unspecified obesity type O99.212 Obesity type affecting : unspecified obesity Trimester: second trimester Encounter for supervision of normal first in third trimester Z34.03 Trimester: third trimester 35 weeks gestation of Z3A.35 Weeks of gestation: 35 weeks Anxiety F41.9 FH: hemophilia Z83.2 Assessment and Plan Assessment and Plan (1) Kidney disease: Status: Acute (2) Elevated serum creatinine: Status: Acute Comment: with her reflux-runs just above normal. Follows with Dr Worley. Labs Q3mo:CMP and urine P/C ratio:7/1: (3) Congenital gjeuqf-aztvohh-rvulj reflux: Status: Acute Comment: check urine func Q3 mo:CMP and urine PC ratio (4) Current every day nicotine vaping: Status: Acute Comment: Has decreased % of nicotine, considering quitting, smoking education provided (5) Obesity affecting : Status: Acute Qualifiers: Obesity type affecting : unspecified obesity Trimester: second trimester Qualified Code(s): O99.212 - Obesity complicating , second trimester Comment: HgbA1c (6) Supervision of normal first : Status: Acute Qualifiers: Trimester: third trimester Qualified Code(s): Z34.03 - Encounter for supervision of normal first , third trimester Comment: PRR, , TERRENCE 01/06/25,girl Shelbi Significant other Juan. nl anatomy (7) : Status: Acute Qualifiers: Weeks of gestation: 35 weeks Qualified Code(s): Z3A.35 - 35 weeks gestation of Comment: NIPT low risk. nl anatomy (8) Anxiety: Status: Acute Comment: not medicated; stable (9) FH: hemophilia: Status: Acute Comment: Maternal Aunt, declined testing. the aunt has a different mom than her mom. Orders: Orders POC Urinalysis 2 Dip (Clinic) Today Plan Details Additional Comments: ACOG trimester education reviewed and updated. see problem list details for updated plan management information and see below for orders placed atthis visit. GA appropriate handout given. Clinical Quality Measures Falls Risk Screening/Assistive Devices Have you fallen in the past year?: No 12/08/24 1010 s CNM> Date _ Susie Bushvelleeanna Signature: Date (if applicable) CC: ~ [facility] [place]08-01-2025 [facility] [address] [place] [address], [address] [place] [address] OFFICE VISIT Date of Service: 11/27/24 MR#: [id number] Acct: [id number] Name: LUCIANO KENDALL Rep #: [id number] : 2000 Provider: Dr. Marcio Mcintosh MD Age/Sex: 24/F Location: [facility] Status: Signed Intake Vital Signs 10/27/24 13:28 11/09/24 15:36 11/19/24 08:40 11/27/24 14:23 Height 5 ft 8 in 5 ft 8 in 5 ft 8 in 5 ft 8 in Weight: 282 lb 3 oz BMI 42.9 BP 138/85 H Intake Visit Reasons: 34wk ob Static Balancer Required: No Is patient in pain?: No Allergies No Known Allergies Allergy (Verified 11/27/24 14:22) Medications ?Medication ?Instructions ?Recorded ?Confirmed ?Type Bacillus coagulans 250 million 2 tab PO ONCE 05/26/24 11/27/24 History cell chewable tablet (Probiotic (B. coagulans)) PNV 153-FA 400 mcg-om3 35 mg-dha tab PO 05/26/2411/27 History 25 mg-epa 5 mg-fish oil chew tablet ascorbate calcium (vitamin C) 500 500 mg PO QDAY 05/2611/27/24 History mg tablet ferrous sulfate 137 mg (45 mg 137 mg PO QDAY 05/26/24 11/27/24 History iron) tablet,extended release (Slow Fe) ondansetron 4 mg disintegrating 4 mg PO Q4H PRN nausea and 08/04/24 11/27/24 Rx tablet vomiting #60 tabs Last Menstrual Period: 04/01/24 Zika: Zika virus screening: Negative : No PFSH PFSH Medical History Congenital pkwhgb-bihjbnv-vxhih reflux Gallstones UTI (urinary tract infection) Asthma Surgical History Hx of cholecystectomy Hx of tonsillectomy Family History Father Diabetes Type 1 Aunt Thyroid disorder Maternal Mother Thyroid disorder enlarged Grandmother Breast cancer Paternal Social History adopted: No household members: significant other 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al status: employed 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[employer] Lab 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al exposures/hazards: No pets [...] 1-2 times per week duration: 60-90 minutes/day sid/buddhism: None seatbelt use: always do you feel safe at home: Yes additional social history: significant other- Juan History 1 Elective abortions Hx Para 0 Spontaneous abortions Hx # Term Pregnancies Ectopic pregnancies Hx # Pregnancies Multiple births # of living children HPI 34wk ob Details: LUCIANO KENDALL is a 24 year old who presents for routine OB visit. OB Visit TERRENCE Calculator Estimated Delivery Date Method Current WG Current Estimate 01/06/25 LMP (Certain) 34w 2d Other Estimates 01/09/25 Ultrasound #1 33w 6d Expected Delivery Route/Plan Labor Preferences- CB/BF classes: encouraged- will take online labor support person: Wesley labor intervention preferences: epidural pain management options preferred: [] cut cord/dad catch: maybe cord : yes PP control planned: discussed discussed possible routes of delivery and associated risks: [] special requests: [] Specific Issue/Plans Covid status: [] Flu vaccine: [] Tdap vaccine: 10/27/24 Rhogam: NA LARC form signed: yes movement and labor precautions reviewed. Problem list reviewed and updated with the most current plan of care details and appropriate ordersplaced. Relevant counseling for the gestational age provided. Continue routine care and follow up unless otherwise noted in visit notes/problem list details Initial Weight: 226 lb Date -?-?-?-?-?-?-?-?-?-?-?-?- EGA Weight BP Urine Prot -?-?-?-?-?-?-?-?-?-?-?-?- Glucose FHR FuHt Pres Dilation -?-?-?-?-?-?-?-?-?-?-?-?- Effaced St Visit Note 06/04/24 -?-?-?-?-?-?-?-?-?-?-?-?- 9w 1d 226 lb 4 oz (+4 oz) 128/82 -?-?-?-?-?-?-?-?-?-?-?-?- 175 -?-?-?-?-?-?-?-?-?-?-?-?- KW- CRL cons wit h dates. accepts nipt. 07/07/24 -?-?-?-?-?-?-?-?-?-?-?-?- 13w 6d 228 lb 8 oz (+2 lb 8 oz) 131/84 Negative -?-?-?-?-?-?-?-?-?-?-?-?- Negative 145 -?-?-?-?-?-?-?-?-?-?-?-?- Sm- no vb crampi ng 08/04/24 -?-?-?-?-?-?-?-?-?-?-?-?- 17w 6d 235 lb 6 oz (+9 lb 6 oz) 124/82 -?-?-?-?-?-?-?-?-?-?-?-?- 153 -?-?-?-?-?-?-?-?-?-?-?-?- MH-No VB. Reques ts labs for urinary reflux today:does q3mo. Denies UTI sx. Alexandra sent:going on cruise. 09/01/24 -?-?-?-?-?-?-?-?-?-?-?-?- 21w 6d 246 lb 2 oz (+20 lb 2 oz) 125/81 Negative -?-?-?-?-?-?-?-?-?-?-?-?- Negative 145 -?-?-?-?-?-?-?-?-?-?-?-?- JV- no lof, vagi nal bleeding and feeling some movements. has anterior placenta. Has lots of heart burn. will start pepcid. anatomy scan reviewed . 09/28/24 -?-?-?-?-?-?-?-?-?-?-?-?- 25w 5d 262 lb (+36 lb) 122/76 Negative -?-?-?-?-?-?-?-?-?-?-?-?- Negative 141 -?-?-?-?-?-?-?-?-?-?-?-?- No VB. Good FM. URI and saw Urgent care and starting amoxil. Enc rest, fluids etc. 10/27/24 -?-?-?-?-?-?-?-?-?-?-?-?- 29w 6d 265 lb 4 oz (+39 lb 4 oz) 133/87 Negative -?-?-?-?-?-?-?-?-?-?-?-?- Negative 142 30 -?-?-?-?-?-?-?-?-?-?-?-?- MH-No Vb, LOF. G ood FM. Tdap 11/09/24 -?-?-?-?-?-?-?-?-?-?-?-?- 31w 5d 273 lb 4 oz (+47 lb 4 oz) 133/84 Negative -?-?-?-?-?-?-?-?-?-?-?-?- Negative 140 32 -?-?-?-?-?-?-?-?-?-?-?-?- SM- no vb lof go od fm no regular ctx reviewed good nutrition in 11/19/24 -?-?-?-?-?-?-?-?-?-?-?-?- 33w 1d 272 lb 6 oz (+46 lb 6 oz) 126/84 Negative -?-?-?-?-?-?-?-?-?-?-?-?- Negative 140 33 -?-?-?-?-?-?-?-?-?-?-?-?- SM- no vb lof go od fm no regular ctx 11/27/24 -?-?-?-?-?-?-?-?-?-?-?-?- 34w 2d 282 lb 3 oz (+56 lb 3 oz) 138/85 Negative -?-?-?-?-?-?-?-?-?-?-?-?- Negative 145 34 -?-?-?-?-?-?-?-?-?-?-?-?- SM- n ovb lof go od f mn oregualr ctx ACOG First Trimester First Trimester: Discussed Second Trimester Second Trimester: Signs and Symptoms of Labor, Selecting a care provider, Reproductive Life Planning & Contreception, Care Planning, Depression/Anxiety and Intimate Partner Violence; Discussed Tobacco Cessation Third Trimester Third Trimester: Pain Management Plans, Labor support person(s), Immediate Larc, Signs and Symptoms of Preeclampsia, Infant Feeding No , Education and Family Medical Leave or Disability Forms Results POC Urinalysis 2 Dip (Clinic) Office Urine Glucose Negative Last Edit by Jennifer Rae on 11/27/24 14:29 Office Urine Protein Negative Last Edit by Jennifer Rae on 11/27/24 14:29 Coding Level of Care Code OB Routine Diagnoses Kidney disease N28.9 Elevated serum creatinine R79.89 Congenital dsyvdi-jzjbkoy-izvca reflux Q62.7 Current every day nicotine vaping Z72.0 Obesity affecting in second trimester, unspecified obesity type O99.212 Obesity type affecting : unspecified obesity Trimester: second trimester Encounter for supervision of normal first in third trimester Z34.03 Trimester: third trimester 34 weeks gestation of Z3A.34 Weeks of gestation: 34 weeks Anxiety F41.9 FH: hemophilia Z83.2 Assessment and Plan Assessment and Plan (1) Kidney disease: Status: Acute (2) Elevated serum creatinine: Status: Acute Comment: with her reflux-runs just above normal. Follows with Dr Worley. Labs Q3mo:CMP and urine P/C ratio:7/1: (3) Congenital mewjyu-iolzfvh-oweug reflux: Status: Acute Comment: check urine func Q3 mo:CMP and urine PC ratio (4) Current every day nicotine vaping: Status: Acute Comment: Has decreased % of nicotine, considering quitting, smoking education provided (5) Obesity affecting : Status: Acute Qualifiers: Obesity type affecting : unspecified obesity Trimester: second trimester Qualified Code(s): O99.212 - Obesity complicating , second trimester Comment: HgbA1c (6) Supervision of normal first : Status: Acute Qualifiers: Trimester: third trimester Qualified Code(s): Z34.03 - Encounter for supervision of normal first , third trimester Comment: PRR, , TERRENCE 01/06/25,girl Shelbi Significant other Juan. nl anatomy (7) : Status: Acute Qualifiers: Weeks of gestation: 34 weeks Qualified Code(s): Z3A.34 - 34 weeks gestation of Comment: NIPT low risk. nl anatomy (8) Anxiety: Status: Acute Comment: not medicated; stable (9) FH: hemophilia: Status: Acute Comment: Maternal Aunt, declined testing. the aunt has a different mom than her mom. Orders: Orders POC Urinalysis 2 Dip (Clinic) Today 11/27/24 1448 nate PITTMAN> Date _ Nita Mcintosh MD Cosigner Signature: Date (if applicable) CC: ~ [facility] [place]08-01-2025 Progress note Author Nita Mcintosh [facility] Note Date/Time November 27, 2024 2:4 8pm [facility] [address] [place] [address], [address] [place] [address] OFFICE VISIT Date of Service: 11/27/24 MR#: [id number] Acct: [id number] Name: LUCIANO KENDALL Rep #: [id number] : 2000 Provider: Dr. Marcio Mcintosh MD Age/Sex: 24/F Location: [facility] Status: Signed Intake Vital Signs 10/27/24 13:28 11/09/24 15:36 11/19/24 08:40 11/27/24 14:23 Height 5 ft 8 in 5 ft 8 in 5 ft 8 in 5 ft 8 in Weight: 282 lb 3 oz BMI 42.9 BP 138/85 H Intake Visit Reasons: 34wk ob Static Balancer Required: No Is patient in pain?: No Allergies No Known Allergies Allergy (Verified 11/27/24 14:22) Medications ?Medication ?Instructions ?Recorded ?Confirmed ?Type Bacillus coagulans 250 million 2 tab PO ONCE 05/26/24 11/27/24 History cell chewable tablet (Probiotic (B. coagulans)) PNV 153-FA 400 mcg-om3 35 mg-dha tab PO 05/26/2411/27 History 25 mg-epa 5 mg-fish oil chew tablet ascorbate calcium (vitamin C) 500 500 mg PO QDAY 05/2611/27/24 History mg tablet ferrous sulfate 137 mg (45 mg 137 mg PO QDAY 05/26/24 11/27/24 History iron) tablet,extended release (Slow Fe) ondansetron 4 mg disintegrating 4 mg PO Q4H PRN nausea and 08/04/24 11/27/24 Rx tablet vomiting #60 tabs Last Menstrual Period: 04/01/24 Zika: Zika virus screening: Negative : No PFSH PFSH Medical History Congenital hmtgwr-cxopgon-bnqcm reflux Gallstones UTI (urinary tract infection) Asthma Surgical History Hx of cholecystectomy Hx of tonsillectomy Family History Father Diabetes Type 1 Aunt Thyroid disorder Maternal Mother Thyroid disorder enlarged Grandmother Breast cancer Paternal Social History adopted: No household members: significant other 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al status: employed 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[employer] Lab 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al exposures/hazards: No pets [...] 1-2 times per week duration: 60-90 minutes/day sid/buddhism: None seatbelt use: always do you feel safe at home: Yes additional social history: significant other- Juan History 1 Elective abortions Hx Para 0 Spontaneous abortions Hx # Term Pregnancies Ectopic pregnancies Hx # Pregnancies Multiple births # of living children HPI 34wk ob Details: LUCIANO KENDALL is a 24 year old who presents for routine OB visit. OB Visit TERRENCE Calculator Estimated Delivery Date Method Current WG Current Estimate 01/06/25 LMP (Certain) 34w 2d Other Estimates 01/09/25 Ultrasound #1 33w 6d Expected Delivery Route/Plan Labor Preferences- CB/BF classes: encouraged- will take online labor support person: Wesley labor intervention preferences: epidural pain management options preferred: [] cut cord/dad catch: maybe cord : yes PP control planned: discussed discussed possible routes of delivery and associated risks: [] special requests: [] Specific Issue/Plans Covid status: [] Flu vaccine: [] Tdap vaccine: 10/27/24 Rhogam: NA LARC form signed: yes movement and labor precautions reviewed. Problem list reviewed and updated with the most current plan of care details and appropriate orders placed. Relevant counseling for the gestational age provided. Continue routine care and follow up unless otherwise noted in visit notes/problem list details Initial Weight: 226 lb Date -?-?-?-?-?-?-?-?-?-?-?-?- EGA Weight BP Urine Prot -?-?-?-?-?-?-?-?-?-?-?-?- Glucose FHR FuHt Pres Dilation -?-?-?-?-?-?-?-?-?-?-?-?- Effaced St Visit Note 06/04/24 -?-?-?-?-?-?-?-?-?-?-?-?- 9w 1d 226 lb 4 oz (+4 oz) 128/82 -?-?-?-?-?-?-?-?-?-?-?-?- 175 -?-?-?-?-?-?-?-?-?-?-?-?- KW- CRL cons wit h dates. accepts nipt. 07/07/24 -?-?-?-?-?-?-?-?-?-?-?-?- 13w 6d 228 lb 8 oz (+2 lb 8 oz) 131/84 Negative -?-?-?-?-?-?-?-?-?-?-?-?- Negative 145 -?-?-?-?-?-?-?-?-?-?-?-?- Sm- no vb crampi ng 08/04/24 -?-?-?-?-?-?-?-?-?-?-?-?- 17w 6d 235 lb 6 oz (+9 lb 6 oz) 124/82 -?-?-?-?-?-?-?-?-?-?-?-?- 153 -?-?-?-?-?-?-?-?-?-?-?-?- MH-No VB. Reques ts labs for urinary reflux today:does q3mo. Denies UTI sx. Alexandra sent:going [place] cruise. 09/01/24 -?-?-?-?-?-?-?-?-?-?-?-?- 21w 6d 246 lb 2 oz (+20 lb 2 oz) 125/81 Negative -?-?-?-?-?-?-?-?-?-?-?-?- Negative 145 -?-?-?-?-?-?-?-?-?-?-?-?- JV- no lof, vagi nal bleeding and feeling some movements. has anterior placenta. Has lots of heart burn. will start pepcid. anatomy scan reviewed . 09/28/24 -?-?-?-?-?-?-?-?-?-?-?-?- 25w 5d 262 lb (+36 lb) 122/76 Negative -?-?-?-?-?-?-?-?-?-?-?-?- Negative 141 -?-?-?-?-?-?-?-?-?-?-?-?- No VB. Good FM. URI and saw Urgent care and starting amoxil. Enc rest, fluids etc. 10/27/24 -?-?-?-?-?-?-?-?-?-?-?-?- 29w 6d 265 lb 4 oz (+39 lb 4 oz) 133/87 Negative -?-?-?-?-?-?-?-?-?-?-?-?- Negative 142 30 -?-?-?-?-?-?-?-?-?-?-?-?- MH-No Vb, LOF. G ood FM. Tdap 11/09/24 -?-?-?-?-?-?-?-?-?-?-?-?- 31w 5d 273 lb 4 oz (+47 lb 4 oz) 133/84 Negative -?-?-?-?-?-?-?-?-?-?-?-?- Negative 140 32 -?-?-?-?-?-?-?-?-?-?-?-?- SM- no vb lof go od fm no regular ctx reviewed good nutrition in 11/19/24 -?-?-?-?-?-?-?-?-?-?-?-?- 33w 1d 272 lb 6 oz (+46 lb 6 oz) 126/84 Negative -?-?-?-?-?-?-?-?-?-?-?-?- Negative 140 33 -?-?-?-?-?-?-?-?-?-?-?-?- SM- no vb lof go od fm no regular ctx 11/27/24 -?-?-?-?-?-?-?-?-?-?-?-?- 34w 2d 282 lb 3 oz (+56 lb 3 oz) 138/85 Negative -?-?-?-?-?-?-?-?-?-?-?-?- Negative 145 34 -?-?-?-?-?-?-?-?-?-?-?-?- SM- n ovb lof go od f mn oregualr ctx ACOG First Trimester First Trimester: Discussed Second Trimester Second Trimester: Signs and Symptoms of Labor, Selecting a care provider, Reproductive Life Planning & Contreception, Care Planning, Depression/Anxiety and Intimate Partner Violence; Discussed Tobacco Cessation Third Trimester Third Trimester: Pain Management Plans, Labor support person(s), Immediate Larc, Signs and Symptoms of Preeclampsia, Infant Feeding No , Education and Family Medical Leave or Disability Forms Results POC Urinalysis 2 Dip (Clinic) Office Urine Glucose Negative Last Edit by Jennifer Rae on 11/27/24 14:29 Office Urine Protein Negative Last Edit by Jennifer Rae on 11/27/24 14:29 Coding Level of Care Code OB Routine Diagnoses Kidney disease N28.9 Elevated serum creatinine R79.89 Congenital kysibf-xrvypht-ypppp reflux Q62.7 Current every day nicotine vaping Z72.0 Obesity affecting in second trimester, unspecified obesity type O99.212 Obesity type affecting : unspecified obesity Trimester: second trimester Encounter for supervision of normal first in third trimester Z34.03 Trimester: third trimester 34 weeks gestation of Z3A.34 Weeks of gestation: 34 weeks Anxiety F41.9 FH: hemophilia Z83.2 Assessment and Plan Assessment and Plan (1) Kidney disease: Status: Acute (2) Elevated serum creatinine: Status: Acute Comment: with her reflux-runs just above normal. Follows with Dr Worley. Labs Q3mo:CMP and urine P/C ratio: 7/1: (3) Congenital glufsk-gxzsfvo-lhenv reflux: Status: Acute Comment: check urine func Q3 mo:CMP and urine PC ratio (4) Current every day nicotine vaping: Status: Acute Comment: Has decreased % of nicotine, considering quitting, smoking education provided (5) Obesity affecting : Status: Acute Qualifiers: Obesity type affecting : unspecified obesity Trimester: second trimester Qualified Code(s): O99.212 - Obesity complicating , second trimester Comment: HgbA1c (6) Supervision of normal first : Status: Acute Qualifiers: Trimester: third trimester Qualified Code(s): Z34.03 - Encounter for supervision of normal first , third trimester Comment: PRR, , TERRENCE 01/06/25,girl Shelbi Significant other Juan. nl anatomy (7) : Status: Acute Qualifiers: Weeks of gestation: 34 weeks Qualified Code(s): Z3A.34 - 34 weeks gestation of Comment: NIPT low risk. nl anatomy (8) Anxiety: Status: Acute Comment: not medicated; stable (9) FH: hemophilia: Status: Acute Comment: Maternal Aunt, declined testing. the aunt has a different mom than her mom. Orders: Orders POC Urinalysis 2 Dip (Clinic) Today 11/27/24 1308 <Electronically signed by Nita sullivan MD> Date _ Nita Mcintosh MD [facility] Signature: Date (if applicable) CC: ~ [facility] Work Phone: [phone]) [phone] [facility] [address] [place] [address], [address] [place] [address] OFFICE VISIT Date of Service: 11/09/24 MR#: [id number] Acct: [id number] Name: LUCIANO KENDALL Rep #: [id number] : 2000 Provider: Dr. Marcio Mcintosh MD Age/Sex: 24/F Location: [facility] Status: Signed Intake Vital Signs 09/01/24 15:04 10/27/24 13:28 11/09/24 15:36 Height 5 ft 8 in 5 ft 8 in 5 ft 8 in Weight: 273 lb 4 oz BMI 41.5 BP 133/84 H Intake Visit Reasons: 32wk ob Static Balancer Required: No Is patient in pain?: No Allergies No Known Allergies Allergy (Verified 10/27/24 13:26) Medications ?Medication ?Instructions ?Recorded ?Confirmed ?Type Bacillus coagulans 250 million 2 tab PO ONCE 05/26/24 11/09/24 History cell chewable tablet (Probiotic (B. coagulans)) PNV 153-FA 400 mcg-om3 35 mg-dha tab PO 05/26/2411/09 History 25 mg-epa 5 mg-fish oil chew tablet ascorbate calcium (vitamin C) 500 500 mg PO QDAY 05/2611/09/24 History mg tablet ferrous sulfate 137 mg (45 mg 137 mg PO QDAY 05/26/24 11/09/24 History iron) tablet,extended release (Slow Fe) ondansetron 4 mg disintegrating 4 mg PO Q4H PRN nausea and 08/04/24 11/09/24 Rx tablet vomiting #60 tabs Last Menstrual Period: 04/01/24 Zika: Zika virus screening: Negative : No PFSH PFSH Medical History Congenital viehen-bszbkca-uwivy reflux Gallstones UTI (urinary tract infection) Asthma Surgical History Hx of cholecystectomy Hx of tonsillectomy Family History Father Diabetes Type 1 Aunt Thyroid disorder Maternal Mother Thyroid disorder enlarged Grandmother Breast cancer Paternal Social History adopted: No household members: significant other 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al status: employed 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 OB Visit TERRENCE Calculator Estimated Delivery Date Method Current WG Current Estimate 01/06/25 LMP (Certain) 31w 5d Other Estimates 01/09/25 Ultrasound #1 31w 2d Expected Delivery Route/Plan Labor Preferences- CB/BF classes: encouraged labor support person: Wesley labor intervention preferences: epidural pain management options preferred: [] cut cord/dad catch: maybe cord : yes PP control planned: discussed discussed possible routes of delivery and associated risks: [] special requests: [] Specific Issue/Plans Covid status: [] Flu vaccine: [] Tdap vaccine: 10/27/24 Rhogam: NA LARC form signed: yes movement and labor precautions reviewed. Problem list reviewed and updated with the most current plan of care details and appropriate ordersplaced. Relevant counseling for the gestational age provided. Continue routine care and follow up unless otherwise noted in visit notes/problem list details Initial Weight: 226 lb Date -?-?-?-?-?-?-?-?-?-?-?-?- EGA Weight BP Urine Prot -?-?-?-?-?-?-?-?-?-?-?-?- Glucose FHR FuHt Pres Dilation -?-?-?-?-?-?-?-?-?-?-?-?- Effaced St Visit Note 06/04/24 -?-?-?-?-?-?-?-?-?-?--?-?- 9w 1d 226 lb 4 oz (+4 oz) 128/82 -?-?-?-?-?-?-?-?-?-?-?-?- 175 -?-?-?-?-?-?-?-?-?-?-?-?- KW- CRL cons wit h dates. accepts nipt. 07/07/24 -?-?-?-?-?-?-?-?-?-?-?-?- 13w 6d 228 lb 8 oz (+2 lb 8 oz) 131/84 Negative -?-?-?-?-?-?-?-?-?-?-?-?- Negative 145 -?-?-?-?-?-?-?-?-?-?-?-?- Sm- no vb crampi ng 08/04/24 -?-?-?-?-?-?-?-?-?-?-?-?- 17w 6d 235 lb 6 oz (+9 lb 6 oz) 124/82 -?-?-?-?-?-?-?-?-?-?-?-?- 153 -?-?-?-?-?-?-?-?-?-?-?-?- MH-No VB. Reques ts labs for urinary reflux today:does q3mo. Denies UTI sx. Alexandra sent:going on cruise. 09/01/24 -?-?-?-?-?-?-?-?-?-?-?-?- 21w 6d 246 lb 2 oz (+20 lb 2 oz) 125/81 Negative -?-?-?-?-?-?-?-?-?-?-?-?- Negative 145 -?-?-?-?-?-?-?-?-?-?-?-?- JV- no lof, vagi nal bleeding and feeling some movements. has anterior placenta. Has lots of heart burn. will start pepcid. anatomy scan reviewed . 09/28/24 -?-?-?-?-?-?-?-?-?-?-?-?- 25w 5d 262 lb (+36 lb) 122/76 Negative -?-?-?-?-?-?-?-?-?-?-?-?- Negative 141 -?-?-?-?-?-?-?-?-?-?-?-?- No VB. Good FM. URI and saw Urgent care and starting amoxil. Enc rest, fluids etc. 10/27/24 -?-?-?-?-?-?-?-?-?-?-?-?- 29w 6d 265 lb 4 oz (+39 lb 4 oz) 133/87 Negative -?-?-?-?-?-?-?-?-?-?-?-?- Negative 142 30 -?-?-?-?-?-?-?-?-?-?-?-?- MH-No Vb, LOF. G ood FM. Tdap 11/09/24 -?-?-?-?-?-?-?-?-?-?-?-?- 31w 5d 273 lb 4 oz (+47 lb 4 oz) 133/84 Negative -?-?-?-?-?-?-?-?-?-?-?-?- Negative 140 32 -?-?-?-?-?-?-?-?-?-?-?-?- SM- no vb lof go od fm no regular ctx reviewed good nutrition in ACOG First Trimester First Trimester: Discussed Second Trimester Second Trimester: Signs and Symptoms of Labor, Selecting a care provider, Reproductive Life Planning & Contreception, Care Planning, Depression/Anxiety and Intimate Partner Violence; Discussed Tobacco Cessation Third Trimester Third Trimester: Pain Management Plans, Labor support person(s), Immediate Larc, Signs and Symptoms of Preeclampsia, Feeding No , Education and Family Medical Leave or Disability Forms Results POC Urinalysis 2 Dip (Clinic) Office Urine Glucose Negative Last Edit by Jennifer Rae on 11/09/24 15:44 Office Urine Protein Negative Last Edit by Jennifer Rae on 11/09/24 15:44 Coding Level of Care Code OB Routine Diagnoses Kidney disease N28.9 Elevated serum creatinine R79.89 Congenital rhmbkt-ofpoeot-mzrlx reflux Q62.7 Current every day nicotine vaping Z72.0 Obesity affecting in second trimester, unspecified obesity type O99.212 Obesity type affecting : unspecified obesity Trimester: second trimester Encounter for supervision of normal first in third trimester Z34.03 Trimester: third trimester 31 weeks gestation of Z3A.31 Weeks of gestation: 31 weeks Anxiety F41.9 FH: hemophilia Z83.2 Assessment and Plan Assessment and Plan (1) Kidney disease: Status: Acute (2) Elevated serum creatinine: Status: Acute Comment: with her reflux-runs just above normal. Follows with Dr Worley. Labs Q3mo:CMP and urine P/C ratio:7/1: (3) Congenital xxsciu-srteosh-vbsbr reflux: Status: Acute Comment: check urine func Q3 mo:CMP and urine PC ratio (4) Current every day nicotine vaping: Status: Acute Comment: Has decreased % of nicotine, considering quitting, smoking education provided (5) Obesity affecting : Status: Acute Qualifiers: Obesity type affecting : unspecified obesity Trimester: second trimester Qualified Code(s): O99.212 - Obesity complicating , second trimester Comment: HgbA1c (6) Supervision of normal first : Status: Acute Qualifiers: Trimester: third trimester Qualified Code(s): Z34.03 - Encounter for supervision of normal first , third trimester Comment: PRR, , TERRENCE 01/06/25,girl Shelbi Significant other Juan. anatomy (7) : Status: Acute Qualifiers: Weeks of gestation: 31 weeks Qualified Code(s): Z3A.31 - 31 weeks gestation of Comment: NIPT low risk. nl anatomy (8) Anxiety: Status: Acute Comment: not medicated; stable (9) FH: hemophilia: Status: Acute Comment: Maternal Aunt, declined testing. the aunt has a different mom than her mom. Orders: Orders POC Urinalysis 2 Dip (Clinic) Today 11/09/24 Michelle sullivan MD> Date _ Nita Mcintosh MD Cosigner Signature: Date (if applicable) CC: ~ [facility]07-14-2025 Progress note Author Nita Mcintosh [facility] Note Date/Time November 09, 2024 3:54 pm [facility] [address], [address] [place] [address] OFFICE VISIT Date of Service: 11/09/24 MR#: [id number] Acct: [id number] Name: LUCIANO KENDALL Rep #: [id number] : 2000 Provider: Dr. Marcio Mcintosh MD Age/Sex: 24/F Location: [facility] Status: Signed Intake Vital Signs 09/01/24 15:04 10/27/24 13:28 11/09/24 15:36 Height 5 ft 8 in 5 ft 8 in 5 ft 8 in Weight: 273 lb 4 oz BMI 41.5 BP 133/84 H Intake Visit Reasons: 32wk ob Static Balancer Required: No Is patient in pain?: No Allergies No Known Allergies Allergy (Verified 10/27/24 13:26) Medications ?Medication ?Instructions ?Recorded ?Confirmed ?Type Bacillus coagulans 250 million 2 tab PO ONCE 05/26/24 11/09/24 History cell chewable tablet (Probiotic (B. coagulans)) PNV 153-FA 400 mcg-om3 35 mg-dha tab PO 05/26/2411/09 History 25 mg-epa 5 mg-fish oil chew tablet ascorbate calcium (vitamin C) 500 500 mg PO QDAY 05/2611/09/24 History mg tablet ferrous sulfate 137 mg (45 mg 137 mg PO QDAY 05/26/24 11/09/24 History iron) tablet,extended release (Slow Fe) ondansetron 4 mg disintegrating 4 mg PO Q4H PRN nausea and 08/04/24 11/09/24 Rx tablet vomiting #60 tabs Last Menstrual Period: 04/01/24 Zika: Zika virus screening: Negative : No PFSH PFSH Medical History Congenital zxyhep-bdarmqm-zlftq reflux Gallstones UTI (urinary tract infection) Asthma Surgical History Hx of cholecystectomy Hx of tonsillectomy Family History Father Diabetes Type 1 Aunt Thyroid disorder Maternal Mother Thyroid disorder enlarged Grandmother Breast cancer Paternal Social History adopted: No household members: significant other 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al status: employed 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 OB Visit TERRENCE Calculator Estimated Delivery Date Method Current WG Current Estimate 01/06/25 LMP (Certain) 31w 5d Other Estimates 01/09/25 Ultrasound #1 31w 2d Expected Delivery Route/Plan Labor Preferences- CB/BF classes: encouraged labor support person: Wesley labor intervention preferences: epidural pain management options preferred: [] cut cord/dad catch: maybe cord : yes PP control planned: discussed discussed possible routes of delivery and associated risks: [] special requests: [] Specific Issue/Plans Covid status: [] Flu vaccine: [] Tdap vaccine: 10/27/24 Rhogam: NA LARC form signed: yes movement and labor precautions reviewed. Problem list reviewed and updated with the most current plan of care details and appropriate orders placed. Relevant counseling for the gestational age provided. Continue routine care and follow up unless otherwise noted in visit notes/problem list details Initial Weight: 226 lb Date -?-?-?-?-?-?-?-?-?-?-?-?- EGA Weight BP Urine Prot -?-?-?-?-?-?-?-?-?-?-?-?- Glucose FHR FuHt Pres Dilation -?-?-?-?-?-?-?-?-?-?-?-?- Effaced St Visit Note 06/04/24 -?-?-?-?-?-?-?-?-?-?--?-?- 9w 1d 226 lb 4 oz (+4 oz) 128/82 -?-?-?-?-?-?-?-?-?-?-?-?- 175 -?-?-?-?-?-?-?-?-?-?-?-?- KW- CRL cons wit h dates. accepts nipt. 07/07/24 -?-?-?-?-?-?-?-?-?-?-?-?- 13w 6d 228 lb 8 oz (+2 lb 8 oz) 131/84 Negative -?-?-?-?-?-?-?-?-?-?-?-?- Negative 145 -?-?-?-?-?-?-?-?-?-?-?-?- Sm- no vb crampi ng 08/04/24 -?-?-?-?-?-?-?-?-?-?-?-?- 17w 6d 235 lb 6 oz (+9 lb 6 oz) 124/82 -?-?-?-?-?-?-?-?-?-?-?-?- 153 -?-?-?-?-?-?-?-?-?-?-?-?- MH-No VB. Reques ts labs for urinary reflux today:does q3mo. Denies UTI sx. Zofran sent:going [place] cruise. 09/01/24 -?-?-?-?-?-?-?-?-?-?-?-?- 21w 6d 246 lb 2 oz (+20 lb 2 oz) 125/81 Negative -?-?-?-?-?-?-?-?-?-?-?-?- Negative 145 -?-?-?-?-?-?-?-?-?-?-?-?- JV- no lof, vagi nal bleeding and feeling some movements. has anterior placenta. Has lots of heart burn. will start pepcid. anatomy scan reviewed . 09/28/24 -?-?-?-?-?-?-?-?-?-?-?-?- 25w 5d 262 lb (+36 lb) 122/76 Negative -?-?-?-?-?-?-?-?-?-?-?-?- Negative 141 -?-?-?-?-?-?-?-?-?-?-?-?- No VB. Good FM. URI and saw Urgent care and starting amoxil. Enc rest, fluids etc. 10/27/24 -?-?-?-?-?-?-?-?-?-?-?-?- 29w 6d 265 lb 4 oz (+39 lb 4 oz) 133/87 Negative -?-?-?-?-?-?-?-?-?-?-?-?- Negative 142 30 -?-?-?-?-?-?-?-?-?-?-?-?- MH-No Vb, LOF. G ood FM. Tdap 11/09/24 -?-?-?-?-?-?-?-?-?-?-?-?- 31w 5d 273 lb 4 oz (+47 lb 4 oz) 133/84 Negative -?-?-?-?-?-?-?-?-?-?-?-?- Negative 140 32 -?-?-?-?-?-?-?-?-?-?-?-?- SM- no vb lof go od fm no regular ctx reviewed good nutrition in ACOG First Trimester First Trimester: Discussed Second Trimester Second Trimester: Signs and Symptoms of Labor, Selecting a care provider, Reproductive Life Planning & Contreception, Care Planning, Depression/Anxiety and Intimate Partner Violence; Discussed Tobacco Cessation Third Trimester Third Trimester: Pain Management Plans, Labor support person(s), Immediate Larc, Signs and Symptoms of Preeclampsia, Infant Feeding No , [place] Education and Family Medical Leave or Disability Forms Results POC Urinalysis 2 Dip (Clinic) Office Urine Glucose Negative Last Edit by Jennifer Rae on 11/09/24 15:44 Office Urine Protein Negative Last Edit by Jennifer Rae on 11/09/24 15:44 Coding Level of Care Code OB Routine Diagnoses Kidney disease N28.9 Elevated serum creatinine R79.89 Congenital ufnlhy-cyabuwn-hazpx reflux Q62.7 Current every day nicotine vaping Z72.0 Obesity affecting in second trimester, unspecified obesity type O99.212 Obesity type affecting : unspecified obesity Trimester: second trimester Encounter for supervision of normal first in third trimester Z34.03 Trimester: third trimester 31 weeks gestation of Z3A.31 Weeks of gestation: 31 weeks Anxiety F41.9 FH: hemophilia Z83.2 Assessment and Plan Assessment and Plan (1) Kidney disease: Status: Acute (2) Elevated serum creatinine: Status: Acute Comment: with her reflux-runs just above normal. Follows with Dr Worley. Labs Q3mo:CMP and urine P/C ratio: 7/1: (3) Congenital whicco-qunjucn-qhxoj reflux: Status: Acute Comment: check urine func Q3 mo:CMP and urine PC ratio (4) Current every day nicotine vaping: Status: Acute Comment: Has decreased % of nicotine, considering quitting, smoking education provided (5) Obesity affecting : Status: Acute Qualifiers: Obesity type affecting : unspecified obesity Trimester: second trimester Qualified Code(s): O99.212 - Obesity complicating , second trimester Comment: HgbA1c (6) Supervision of normal first : Status: Acute Qualifiers: Trimester: third trimester Qualified Code(s): Z34.03 - Encounter for supervision of normal first , third trimester Comment: PRR, , TERRENCE 01/06/25,girl Juniper Significant other Juan. stephanie anatomy (7) : Status: Acute Qualifiers: Weeks of gestation: 31 weeks Qualified Code(s): Z3A.31 - 31 weeks gestation of Comment: NIPT low risk. nl anatomy (8) Anxiety: Status: Acute Comment: not medicated; stable (9) FH: hemophilia: Status: Acute Comment: Maternal Aunt, declined testing. the aunt has a different mom than her mom. Orders: Orders POC Urinalysis 2 Dip (Clinic) Today 11/09/24 3324 <Electronically signed by Nita sullivan MD> Date _ Nita Mcintosh MD Cosigner Signature: Date (if applicable) CC: ~ [facility] Work Phone: [phone]) 767-665006-02-2025 Evaluation note* Diagnosis Onset Date Resolution Status Admit Date Anxiety acute September 28, 2024 2:50pm Congenital tlavih-qelmpat-evlgz reflux acute September 28, 2024 2:50pm Current every day nicotine vaping acute September 28, 2024 2 :50pm Elevated serum creatinine acute September 28, 2024 2:50pm FH: hemophilia acute September 28, 2024 2:50pm Kidney disease acute September 28, 2024 2:50pm Obesity affecting acute September 28, 2024 2:50pm acute September 28, 2024 2:50pm Supervision of normal first acute September 28, 2024 2 :50pm Recurrent UTI resolved September 28, 2 025 2:50pm Anxiety acute October 27, 2024 1:38pm Congenital vuvspw-wyczcfz-peyen reflux acute October 27, 2024 1:38pm Current every day nicotine vaping acute October 27, 2024 1 :38pm Elevated serum creatinine acute October 27, 2024 1:38pm FH: hemophilia acute October 27, 2024 1:38pm Kidney disease acute October 27, 2024 1:38pm Obesity affecting acute October 27, 2024 1:38pm acute October 27, 2024 1:38pm Supervision of normal first acute October 27, 2024 1 :38pm Recurrent UTI resolved October 27, 2 025 1:38pm Anxiety acute November 09 3:21pm Congenital rgjpav-nxqhmml-jpdym reflux acute November 09, 2024 3:21pm Current every day nicotine vaping acute November 09, 2024 3:21pm Elevated serum creatinine acute November 09, 2024 3:21pm FH: hemophilia acute November 09, 2024 3:21pm Kidney disease acute November 09, 2024 3:21pm Obesity affecting acute November 09, 2024 3:21pm acute November 09 3:21pm Supervision of normal first acute November 09, 2024 3:21pm Anxiety acute November 19 8:30am Congenital iidfjn-xsxdaaz-mrdgk reflux acute November 19, 2024 8:30am Current every day nicotine vaping acute November 19, 2024 8:30am Elevated serum creatinine acute November 19, 2024 8:30am FH: hemophilia acute November 19, 2024 8:30am Kidney disease acute November 19, 2024 8:30am Obesity affecting acute November 19, 2024 8:30am acute November 19 8:30am Supervision of normal first acute November 19, 2024 8:30am Anxiety acute November 27 2:18pm Congenital aommcy-odteklf-eflje reflux acute 2024 2:18pm Current every day nicotine vaping acute November 27, 2024 2:18pm Elevated serum creatinine acute November 27, 2024 2:18pm FH: hemophilia acute November 2:18pm Kidney disease acute November 2:18pm Obesity affecting acute November 27, 2024 2:18pm acute November 27 2:18pm Supervision of normal first acute November 27, 2024 2:18pm Anxiety acute December 08, 025 9:33am Congenital cevpjf-fosfgyv-sepll reflux acute 2024 9:33am Current every day nicotine vaping acute December 08 9:33am Elevated serum creatinine acute December 08, 2024 9:33am FH: hemophilia acute November 9:33am Kidney disease acute November 9:33am Obesity affecting acute December 08, 2024 9:33am acute December 08, 2 025 9:33am Supervision of normal first acute December 08 9:33am Anxiety acute December 17, 2 025 3:44pm Congenital xfoptk-eybjzhg-xzlis reflux acute 2024 3:44pm Current every day nicotine vaping acute December 17 3:44pm Elevated serum creatinine acute December 17, 2024 3:44pm FH: hemophilia acute November 3:44pm Kidney disease acute November 3:44pm Obesity affecting acute December 17, 2024 3:44pm acute December 17, 2 025 3:44pm Supervision of normal first acute December 17 3:44pm Anxiety acute December 22, 2 025 12:54pm Congenital qdvwie-jveojqu-cbhtg reflux acute 2024 12:54pm Current every day nicotine vaping acute December 22 12:54pm Elevated serum creatinine acute December 22, 2024 12:54pm FH: hemophilia acute November 12:54pm Kidney disease acute November 12:54pm Obesity affecting acute December 22, 2024 12:54pm acute December 22, 2 025 12:54pm Supervision of normal first acute December 22 12:54pm Anxiety acute December 30, 2024 2:50pm Congenital puzwls-belmlff-snnrg reflux acute Dec 2:50pm Current every day nicotine vaping acute December 30, 2 025 2:50pm Elevated serum creatinine acute December 30, 2024 2:50pm FH: hemophilia acute December 30, 2024 2:50pm Kidney disease acute December 30, 2024 2:50pm Obesity affecting acute December 30, 2024 2:50pm acute December 30, 2024 2:50pm Supervision of normal first acute December 30, 2 025 2:50pm Anxiety acute January 04, 2025 3:05pm Congenital dsqyhs-dcebbgw-ewdoi reflux acute Dec 3:05pm Current every day nicotine vaping acute January 04, 2 025 3:05pm Elevated serum creatinine acute January 04, 2025 3:05pm FH: hemophilia acute January 04, 2025 3:05pm Kidney disease acute January 04, 2025 3:05pm Obesity affecting acute January 04, 2025 3:05pm acute January 04, 2025 3:05pm Supervision of normal first acute January 04, 2 025 3:05pm [facility] Work Phone: 1(133) 308-527405-06-2025 Evaluation note* Diagnosis Onset Date Resolution Status Admit Date Anxiety acute September 01, 2024 2:50pm Congenital iqopjs-nceudzg-xsmzl reflux acute September 01, 2024 2:50pm Current every day nicotine vaping acute September 01, 2024 2: 50pm Elevated serum creatinine acute September 01, 2024 2:50pm FH: hemophilia acute September 01, 2 025 2:50pm Obesity affecting acute September 01, 2024 2:50pm acute September 01, 2024 2:50pm Supervision of normal first acute September 01, 2024 2: 50pm Anxiety acute September 28, 2024 2:50pm Congenital vuvljr-sbkbsxy-qjtfa reflux acute September 28, 2024 2:50pm Current every day nicotine vaping acute September 28, 2024 2 :50pm Elevated serum creatinine acute September 28, 2024 2:50pm FH: hemophilia acute September 28, 2024 2:50pm Kidney disease acute September 28, 2024 2:50pm Obesity affecting acute September 28, 2024 2:50pm acute September 28, 2024 2:50pm Supervision of normal first acute September 28, 2024 2 :50pm Recurrent UTI resolved September 28, 2 025 2:50pm Anxiety acute October 27, 2024 1:38pm Congenital rrdhaf-webeqcr-picxn reflux acute October 27, 2024 1:38pm Current every day nicotine vaping acute October 27, 2024 1 :38pm Elevated serum creatinine acute October 27, 2024 1:38pm FH: hemophilia acute October 27, 2024 1:38pm Kidney disease acute October 27, 2024 1:38pm Obesity affecting acute October 27, 2024 1:38pm acute October 27, 2024 1:38pm Supervision of normal first acute October 27, 2024 1 :38pm Recurrent UTI resolved October 27, 2 025 1:38pm Anxiety acute November 09 3:21pm Congenital dvscey-uosftby-lyise reflux acute November 09, 2024 3:21pm Current every day nicotine vaping acute November 09, 2024 3:21pm Elevated serum creatinine acute November 09, 2024 3:21pm FH: hemophilia acute November 09, 2024 3:21pm Kidney disease acute November 09, 2024 3:21pm Obesity affecting acute November 09, 2024 3:21pm acute November 09 3:21pm Supervision of normal first acute November 09, 2024 3:21pm Anxiety acute November 19 8:30am Congenital hweovb-dadjaqz-bgiwr reflux acute November 19, 2024 8:30am Current every day nicotine vaping acute November 19, 2024 8:30am Elevated serum creatinine acute November 19, 2024 8:30am FH: hemophilia acute November 19, 2024 8:30am Kidney disease acute November 19, 2024 8:30am Obesity affecting acute November 19, 2024 8:30am acute November 19 8:30am Supervision of normal first acute November 19, 2024 8:30am Anxiety acute November 27 2:18pm Congenital lhktqd-wyvgeio-xlbmf reflux acute 2024 2:18pm Current every day nicotine vaping acute November 27, 2024 2:18pm Elevated serum creatinine acute November 27, 2024 2:18pm FH: hemophilia acute November 2:18pm Kidney disease acute November 2:18pm Obesity affecting acute November 27, 2024 2:18pm acute November 27 2:18pm Supervision of normal first acute November 27, 2024 2:18pm Anxiety acute December 08, 2 025 9:33am Congenital wysazj-bceojkg-acrab reflux acute 2024 9:33am Current every day nicotine vaping acute December 08 9:33am Elevated serum creatinine acute December 08, 2024 9:33am FH: hemophilia acute November 9:33am Kidney disease acute November 9:33am Obesity affecting acute December 08, 2024 9:33am acute December 08, 2 025 9:33am Supervision of normal first acute December 08 9:33am [facility] Work Phone: 1([phone]) 676-797505-06-2025 Evaluation note* Diagnosis Onset Date Resolution Status Admit Date Anxiety acute September 01, 2024 2:50pm Congenital ieejsz-kjlrlcg-mwfix reflux acute September 01, 2024 2:50pm Current every day nicotine vaping acute September 01, 2024 2: 50pm Elevated serum creatinine acute September 01, 2024 2:50pm FH: hemophilia acute September 01, 2 025 2:50pm Obesity affecting acute September 01, 2024 2:50pm acute September 01, 2024 2:50pm Supervision of normal first acute September 01, 2024 2: 50pm Anxiety acute September 28, 2024 2:50pm Congenital aqihip-bbnsgal-akufx reflux acute September 28, 2024 2:50pm Current every day nicotine vaping acute September 28, 2024 2 :50pm Elevated serum creatinine acute September 28, 2024 2:50pm FH: hemophilia acute September 28, 2024 2:50pm Kidney disease acute September 28, 2024 2:50pm Obesity affecting acute September 28, 2024 2:50pm acute September 28, 2024 2:50pm Supervision of normal first acute September 28, 2024 2 :50pm Recurrent UTI resolved September 28, 2 025 2:50pm Anxiety acute October 27, 2024 1:38pm Congenital qnuoki-fkxygxq-masgt reflux acute October 27, 2024 1:38pm Current every day nicotine vaping acute October 27, 2024 1 :38pm Elevated serum creatinine acute October 27, 2024 1:38pm FH: hemophilia acute October 27, 2024 1:38pm Kidney disease acute October 27, 2024 1:38pm Obesity affecting acute October 27, 2024 1:38pm acute October 27, 2024 1:38pm Supervision of normal first acute October 27, 2024 1 :38pm Recurrent UTI resolved October 27, 2 025 1:38pm Anxiety acute November 09 3:21pm Congenital czfakq-ucgnjjk-juvjo reflux acute November 09, 2024 3:21pm Current every day nicotine vaping acute November 09, 2024 3:21pm Elevated serum creatinine acute November 09, 2024 3:21pm FH: hemophilia acute November 09, 2024 3:21pm Kidney disease acute November 09, 2024 3:21pm Obesity affecting acute November 09, 2024 3:21pm acute November 09 3:21pm Supervision of normal first acute November 09, 2024 3:21pm Anxiety acute November 19 8:30am Congenital bxqnfh-igdwjka-wxfhd reflux acute November 19, 2024 8:30am Current every day nicotine vaping acute November 19, 2024 8:30am Elevated serum creatinine acute November 19, 2024 8:30am FH: hemophilia acute November 19, 2024 8:30am Kidney disease acute November 19, 2024 8:30am Obesity affecting acute November 19, 2024 8:30am acute November 19 8:30am Supervision of normal first acute November 19, 2024 8:30am Anxiety acute November 27 2:18pm Congenital eywtmi-xdwifiv-bugsx reflux acute 2024 2:18pm Current every day nicotine vaping acute November 27, 2024 2:18pm Elevated serum creatinine acute November 27, 2024 2:18pm FH: hemophilia acute November 2:18pm Kidney disease acute November 2:18pm Obesity affecting acute November 27, 2024 2:18pm acute November 27 2:18pm Supervision of normal first acute November 27, 2024 2:18pm Anxiety acute December 08, 2 025 9:33am Congenital ijssyw-oarngfl-mxrzz reflux acute 2024 9:33am Current every day nicotine vaping acute December 08 9:33am Elevated serum creatinine acute December 08, 2024 9:33am FH: hemophilia acute November 9:33am Kidney disease acute November 9:33am Obesity affecting acute December 08, 2024 9:33am acute December 08, 2 025 9:33am Supervision of normal first acute December 08 9:33am Anxiety acute December 17, 2 025 3:44pm Congenital ljpggq-ruzicgf-ysvjj reflux acute 2024 3:44pm Current every day nicotine vaping acute December 17 3:44pm Elevated serum creatinine acute December 17, 2024 3:44pm FH: hemophilia acute November 3:44pm Kidney disease acute November 3:44pm Obesity affecting acute December 17, 2024 3:44pm acute December 17, 2 025 3:44pm Supervision of normal first acute December 17 3:44pm [facility] Work Phone: 1(549) [phone] Evaluation note* Diagnosis Onset Date Resolution Status Admit Date Anxiety acute September 01, 2024 2:50pm Congenital fbugqs-aosftoh-coeqd reflux acute September 01, 2024 2:50pm Current every day nicotine vaping acute September 01, 2024 2: 50pm Elevated serum creatinine acute September 01, 2024 2:50pm FH: hemophilia acute September 01, 2 025 2:50pm Obesity affecting acute September 01, 2024 2:50pm acute September 01, 2024 2:50pm Supervision of normal first acute September 01, 2024 2: 50pm Anxiety acute September 28, 2024 2:50pm Congenital qsptlf-njdptef-dfpdd reflux acute September 28, 2024 2:50pm Current every day nicotine vaping acute September 28, 2024 2 :50pm Elevated serum creatinine acute September 28, 2024 2:50pm FH: hemophilia acute September 28, 2024 2:50pm Kidney disease acute September 28, 2024 2:50pm Obesity affecting acute September 28, 2024 2:50pm acute September 28, 2024 2:50pm Supervision of normal first acute September 28, 2024 2 :50pm Recurrent UTI resolved September 28, 2 025 2:50pm Anxiety acute October 27, 2024 1:38pm Congenital aetcyv-zjxfbxs-vepna reflux acute October 27, 2024 1:38pm Current every day nicotine vaping acute October 27, 2024 1 :38pm Elevated serum creatinine acute October 27, 2024 1:38pm FH: hemophilia acute October 27, 2024 1:38pm Kidney disease acute October 27, 2024 1:38pm Obesity affecting acute October 27, 2024 1:38pm acute October 27, 2024 1:38pm Supervision of normal first acute October 27, 2024 1 :38pm Recurrent UTI resolved October 27, 2 025 1:38pm Anxiety acute November 09 3:21pm Congenital ygyucg-rejfsie-cmazb reflux acute November 09, 2024 3:21pm Current every day nicotine vaping acute November 09, 2024 3:21pm Elevated serum creatinine acute November 09, 2024 3:21pm FH: hemophilia acute November 09, 2024 3:21pm Kidney disease acute November 09, 2024 3:21pm Obesity affecting acute November 09, 2024 3:21pm acute November 09 3:21pm Supervision of normal first acute November 09, 2024 3:21pm Anxiety acute November 19 8:30am Congenital xyumsj-lmlpsud-hamji reflux acute November 19, 2024 8:30am Current every day nicotine vaping acute November 19, 2024 8:30am Elevated serum creatinine acute November 19, 2024 8:30am FH: hemophilia acute November 19, 2024 8:30am Kidney disease acute November 19, 2024 8:30am Obesity affecting acute November 19, 2024 8:30am acute November 19 8:30am Supervision of normal first acute November 19, 2024 8:30am Anxiety acute November 27 2:18pm Congenital btnaet-bibsiuc-dngxl reflux acute 2024 2:18pm Current every day nicotine vaping acute November 27, 2024 2:18pm Elevated serum creatinine acute November 27, 2024 2:18pm FH: hemophilia acute November 2:18pm Kidney disease acute November 2:18pm Obesity affecting acute November 27, 2024 2:18pm acute November 27 2:18pm Supervision of normal first acute November 27, 2024 2:18pm Anxiety acute December 08, 025 9:33am Congenital ndljpy-gmtbebo-txawk reflux acute 2024 9:33am Current every day nicotine vaping acute December 08 9:33am Elevated serum creatinine acute December 08, 2024 9:33am FH: hemophilia acute November 9:33am Kidney disease acute November 9:33am Obesity affecting acute December 08, 2024 9:33am acute December 08, 2 025 9:33am Supervision of normal first acute December 08 9:33am Anxiety acute December 17, 2 025 3:44pm Congenital hoxmsj-pfuqauc-mspig reflux acute 2024 3:44pm Current every day nicotine vaping acute December 17 3:44pm Elevated serum creatinine acute December 17, 2024 3:44pm FH: hemophilia acute November 3:44pm Kidney disease acute November 3:44pm Obesity affecting acute December 17, 2024 3:44pm acute December 17, 2 025 3:44pm Supervision of normal first acute December 17 3:44pm Anxiety acute December 22, 025 12:54pm Congenital anfjvl-artsehn-jobmo reflux acute 2024 12:54pm Current every day nicotine vaping acute December 22 12:54pm Elevated serum creatinine acute December 22, 2024 12:54pm FH: hemophilia acute November 12:54pm Kidney disease acute November 12:54pm Obesity affecting acute December 22, 2024 12:54pm acute December 22, 025 12:54pm Supervision of normal first acute December 22 12:54pm [facility] Work Phone: 1(135) 768-842305-06-2025 Evaluation note* Diagnosis Onset Date Resolution Status Admit Date Anxiety acute September 01, 2024 2:50pm Congenital arvxla-grrekgx-uxewr reflux acute September 01, 2024 2:50pm Current every day nicotine vaping acute September 01, 2024 2: 50pm Elevated serum creatinine acute September 01, 2024 2:50pm FH: hemophilia acute September 01, 2 025 2:50pm Obesity affecting acute September 01, 2024 2:50pm acute September 01, 2024 2:50pm Supervision of normal first acute September 01, 2024 2: 50pm Anxiety acute September 28, 2024 2:50pm Congenital cqpwog-kbclfoz-ebwmd reflux acute September 28, 2024 2:50pm Current every day nicotine vaping acute September 28, 2024 2 :50pm Elevated serum creatinine acute September 28, 2024 2:50pm FH: hemophilia acute September 28, 2024 2:50pm Kidney disease acute September 28, 2024 2:50pm Obesity affecting acute September 28, 2024 2:50pm acute September 28, 2024 2:50pm Supervision of normal first acute September 28, 2024 2 :50pm Recurrent UTI resolved September 28, 2 025 2:50pm Anxiety acute October 27, 2024 1:38pm Congenital ssprjc-vsnvjhf-wclit reflux acute October 27, 2024 1:38pm Current every day nicotine vaping acute October 27, 2024 1 :38pm Elevated serum creatinine acute October 27, 2024 1:38pm FH: hemophilia acute October 27, 2024 1:38pm Kidney disease acute October 27, 2024 1:38pm Obesity affecting acute October 27, 2024 1:38pm acute October 27, 2024 1:38pm Supervision of normal first acute October 27, 2024 1 :38pm Recurrent UTI resolved October 27, 2 025 1:38pm Anxiety acute November 09 3:21pm Congenital slseok-evmwhqu-askgh reflux acute November 09, 2024 3:21pm Current every day nicotine vaping acute November 09, 2024 3:21pm Elevated serum creatinine acute November 09, 2024 3:21pm FH: hemophilia acute November 09, 2024 3:21pm Kidney disease acute November 09, 2024 3:21pm Obesity affecting acute November 09, 2024 3:21pm acute November 09 3:21pm Supervision of normal first acute November 09, 2024 3:21pm Anxiety acute November 19 8:30am Congenital wralib-vlvcfyd-wzwzy reflux acute November 19, 2024 8:30am Current every day nicotine vaping acute November 19, 2024 8:30am Elevated serum creatinine acute November 19, 2024 8:30am FH: hemophilia acute November 19, 2024 8:30am Kidney disease acute November 19, 2024 8:30am Obesity affecting acute November 19, 2024 8:30am acute November 19 8:30am Supervision of normal first acute November 19, 2024 8:30am Anxiety acute November 27 2:18pm Congenital zdxiii-okyleaw-feuqq reflux acute 2024 2:18pm Current every day nicotine vaping acute November 27, 2024 2:18pm Elevated serum creatinine acute November 27, 2024 2:18pm FH: hemophilia acute November 2:18pm Kidney disease acute November 2:18pm Obesity affecting acute November 27, 2024 2:18pm acute November 27 2:18pm Supervision of normal first acute November 27, 2024 2:18pm Anxiety acute December 08, 2 025 9:33am Congenital aomhav-mjjfgps-quohd reflux acute 2024 9:33am Current every day nicotine vaping acute December 08 9:33am Elevated serum creatinine acute December 08, 2024 9:33am FH: hemophilia acute November 9:33am Kidney disease acute November 9:33am Obesity affecting acute December 08, 2024 9:33am acute December 08, 025 9:33am Supervision of normal first acute December 08 9:33am Anxiety acute December 17, 2 025 3:44pm Congenital wlimaz-ewvbqks-hukfl reflux acute 2024 3:44pm Current every day nicotine vaping acute December 17 3:44pm Elevated serum creatinine acute December 17, 2024 3:44pm FH: hemophilia acute November 3:44pm Kidney disease acute November 3:44pm Obesity affecting acute December 17, 2024 3:44pm acute December 17, 2 025 3:44pm Supervision of normal first acute December 17 3:44pm Anxiety acute December 22, 2 025 12:54pm Congenital zabdks-ikldyrb-mzaxj reflux acute 2024 12:54pm Current every day nicotine vaping acute December 22 12:54pm Elevated serum creatinine acute December 22, 2024 12:54pm FH: hemophilia acute November 12:54pm Kidney disease acute November 12:54pm Obesity affecting acute December 22, 2024 12:54pm acute December 22, 2 025 12:54pm Supervision of normal first acute December 22 12:54pm Anxiety acute December 30, 2024 2:50pm Congenital [place]-qumvrcw-mkaol reflux acute Sept 2024 2:50pm Current every day nicotine vaping acute December 30, 2 025 2:50pm Elevated serum creatinine acute December 30, 2024 2:50pm FH: hemophilia acute December 30, 2024 2:50pm Kidney disease acute December 30, 2024 2:50pm Obesity affecting acute December 30, 2024 2:50pm acute December 30, 2024 2:50pm Supervision of normal first acute December 30, 025 2:50pm [facility] Work Phone: 1([phone]) [phone] Evaluation note* Diagnosis Onset Date Resolution Status Admit Date Anxiety acute August 04 10:37am Congenital yjxhcv-dksgehw-hcaoe reflux acute Apr2024 10:37am Current every day nicotine vaping acute August 04, 2024 10:37am Elevated serum creatinine acute August 04, 2024 10:37am FH: hemophilia acute August 04, 2024 10:37am Obesity affecting acute August 04, 2024 10:37am acute August 04 10:37am Supervision of normal first acute August 04, 2024 10:37am Recurrent UTI resolved August 04, 2024 10:37am Anxiety acute September 01, 2024 2:50pm Congenital urdqtj-fsdivzv-vvpkd reflux acute September 01, 2024 2:50pm Current every day nicotine vaping acute September 01, 2024 2: 50pm Elevated serum creatinine acute September 01, 2024 2:50pm FH: hemophilia acute September 01, 2 025 2:50pm Obesity affecting acute September 01, 2024 2:50pm acute September 01, 2024 2:50pm Supervision of normal first acute September 01, 2024 2: 50pm Anxiety acute September 28, 2024 2:50pm Congenital iawnzn-mnxygki-bruej reflux acute September 28, 2024 2:50pm Current every day nicotine vaping acute September 28, 2024 2 :50pm Elevated serum creatinine acute September 28, 2024 2:50pm FH: hemophilia acute September 28, 2024 2:50pm Kidney disease acute September 28, 2024 2:50pm Obesity affecting acute September 28, 2024 2:50pm acute September 28, 2024 2:50pm Supervision of normal first acute September 28, 2024 2 :50pm Recurrent UTI resolved September 28, 2 025 2:50pm Anxiety acute October 27, 2024 1:38pm Congenital rqqbnl-hvnlesb-qfvym reflux acute October 27, 2024 1:38pm Current every day nicotine vaping acute October 27, 2024 1 :38pm Elevated serum creatinine acute October 27, 2024 1:38pm FH: hemophilia acute October 27, 2024 1:38pm Kidney disease acute October 27, 2024 1:38pm Obesity affecting acute October 27, 2024 1:38pm acute October 27, 2024 1:38pm Supervision of normal first acute October 27, 2024 1 :38pm Recurrent UTI resolved October 27 1:38pm Anxiety acute November 09 3:21pm Congenital hwbgsc-bcpjvjf-rkurw reflux acute November 09, 2024 3:21pm Current every day nicotine vaping acute November 09, 2024 3:21pm Elevated serum creatinine acute November 09, 2024 3:21pm FH: hemophilia acute November 09, 2024 3:21pm Kidney disease acute November 09, 2024 3:21pm Obesity affecting acute November 09, 2024 3:21pm acute November 09 3:21pm Supervision of normal first acute November 09, 2024 3:21pm [facility] Work Phone: 1(274) 530-962004-08-2025 Evaluation note* Diagnosis Onset Date Resolution Status Admit Date Anxiety acute August 04 10:37am Congenital qannbm-fcztmus-ceqnk reflux acute Apr2024 10:37am Current every day nicotine vaping acute August 04, 2024 10:37am Elevated serum creatinine acute August 04, 2024 10:37am FH: hemophilia acute August 04, 2024 10:37am Obesity affecting acute August 04, 2024 10:37am acute August 04 10:37am Supervision of normal first acute August 04, 2024 10:37am Recurrent UTI resolved August 04, 2024 10:37am Anxiety acute September 01, 2024 2:50pm Congenital prwtjc-yiqrnld-rpfux reflux acute September 01, 2024 2:50pm Current every day nicotine vaping acute September 01, 2024 2: 50pm Elevated serum creatinine acute September 01, 2024 2:50pm FH: hemophilia acute September 01, 2 025 2:50pm Obesity affecting acute September 01, 2024 2:50pm acute September 01, 2024 2:50pm Supervision of normal first acute September 01, 2024 2: 50pm Anxiety acute September 28, 2024 2:50pm Congenital wspdrn-yymlzbz-fducx reflux acute September 28, 2024 2:50pm Current every day nicotine vaping acute September 28, 2024 2 :50pm Elevated serum creatinine acute September 28, 2024 2:50pm FH: hemophilia acute September 28, 2024 2:50pm Kidney disease acute September 28, 2024 2:50pm Obesity affecting acute September 28, 2024 2:50pm acute September 28, 2024 2:50pm Supervision of normal first acute September 28, 2024 2 :50pm Recurrent UTI resolved September 28, 2 025 2:50pm Anxiety acute October 27, 2024 1:38pm Congenital pfxyuu-jiolwvt-vnwje reflux acute October 27, 2024 1:38pm Current every day nicotine vaping acute October 27, 2024 1 :38pm Elevated serum creatinine acute October 27, 2024 1:38pm FH: hemophilia acute October 27, 2024 1:38pm Kidney disease acute October 27, 2024 1:38pm Obesity affecting acute October 27, 2024 1:38pm acute October 27, 2024 1:38pm Supervision of normal first acute October 27, 2024 1 :38pm Recurrent UTI resolved October 27, 2 025 1:38pm Anxiety acute November 09 3:21pm Congenital rozqes-fnrxezh-ngnhn reflux acute November 09, 2024 3:21pm Current every day nicotine vaping acute November 09, 2024 3:21pm Elevated serum creatinine acute November 09, 2024 3:21pm FH: hemophilia acute November 09, 2024 3:21pm Kidney disease acute November 09, 2024 3:21pm Obesity affecting acute November 09, 2024 3:21pm acute November 09 3:21pm Supervision of normal first acute November 09, 2024 3:21pm Anxiety acute November 19 8:30am Congenital drhjke-vkaqlyg-bqrau reflux acute November 19, 2024 8:30am Current every day nicotine vaping acute November 19, 2024 8:30am Elevated serum creatinine acute November 19, 2024 8:30am FH: hemophilia acute November 19, 2024 8:30am Kidney disease acute November 19, 2024 8:30am Obesity affecting acute November 19, 2024 8:30am acute November 19 8:30am Supervision of normal first acute November 19, 2024 8:30am [facility] Work Phone: 1(134) 836-135204-08-2025 Evaluation note* Diagnosis Onset Date Resolution Status Admit Date Anxiety acute August 04 10:37am Congenital cfcsrm-tsfozkh-fcbkk reflux acute Apr2024 10:37am Current every day nicotine vaping acute August 04, 2024 10:37am Elevated serum creatinine acute August 04, 2024 10:37am FH: hemophilia acute August 04, 2024 10:37am Obesity affecting acute August 04, 2024 10:37am acute August 04 10:37am Supervision of normal first acute August 04, 2024 10:37am Recurrent UTI resolved August 04, 2024 10:37am Anxiety acute September 01, 2024 2:50pm Congenital hjzxkz-oyrkrxz-jmczy reflux acute September 01, 2024 2:50pm Current every day nicotine vaping acute September 01, 2024 2: 50pm Elevated serum creatinine acute September 01, 2024 2:50pm FH: hemophilia acute September 01, 2 025 2:50pm Obesity affecting acute September 01, 2024 2:50pm acute September 01, 2024 2:50pm Supervision of normal first acute September 01, 2024 2: 50pm Anxiety acute September 28, 2024 2:50pm Congenital txsvrc-xmyahln-vdkix reflux acute September 28, 2024 2:50pm Current every day nicotine vaping acute September 28, 2024 2 :50pm Elevated serum creatinine acute September 28, 2024 2:50pm FH: hemophilia acute September 28, 2024 2:50pm Kidney disease acute September 28, 2024 2:50pm Obesity affecting acute September 28, 2024 2:50pm acute September 28, 2024 2:50pm Supervision of normal first acute September 28, 2024 2 :50pm Recurrent UTI resolved September 28, 2 025 2:50pm Anxiety acute October 27, 2024 1:38pm Congenital czkfmb-yogobcx-gpulk reflux acute October 27, 2024 1:38pm Current every day nicotine vaping acute October 27, 2024 1 :38pm Elevated serum creatinine acute October 27, 2024 1:38pm FH: hemophilia acute October 27, 2024 1:38pm Kidney disease acute October 27, 2024 1:38pm Obesity affecting acute October 27, 2024 1:38pm acute October 27, 2024 1:38pm Supervision of normal first acute October 27, 2024 1 :38pm Recurrent UTI resolved October 27 025 1:38pm Anxiety acute November 09 3:21pm Congenital iqsgvv-bsrdsuk-zvaur reflux acute November 09, 2024 3:21pm Current every day nicotine vaping acute November 09, 2024 3:21pm Elevated serum creatinine acute November 09, 2024 3:21pm FH: hemophilia acute November 09, 2024 3:21pm Kidney disease acute November 09, 2024 3:21pm Obesity affecting acute November 09, 2024 3:21pm acute November 09 3:21pm Supervision of normal first acute November 09, 2024 3:21pm Anxiety acute November 19 8:30am Congenital qtiwxt-vqrxbtg-omeeq reflux acute November 19, 2024 8:30am Current every day nicotine vaping acute November 19, 2024 8:30am Elevated serum creatinine acute November 19, 2024 8:30am FH: hemophilia acute November 19, 2024 8:30am Kidney disease acute November 19, 2024 8:30am Obesity affecting acute November 19, 2024 8:30am acute November 19 8:30am Supervision of normal first acute November 19, 2024 8:30am Anxiety acute November 27 2:18pm Congenital docpzn-fmbmdnx-wrhkj reflux acute 2024 2:18pm Current every day nicotine vaping acute November 27, 2024 2:18pm Elevated serum creatinine acute November 27, 2024 2:18pm FH: hemophilia acute November 2:18pm Kidney disease acute November 2:18pm Obesity affecting acute November 27, 2024 2:18pm acute November 27 2:18pm Supervision of normal first acute November 27, 2024 2:18pm [facility] Work Phone: 1(980) 712-699903-11-2025 Evaluation note* Diagnosis Onset Date Resolution Status Admit Date Anxiety acute July 07 2:50pm Current every day nicotine vaping acute July 07, 2024 2:50pm FH: hemophilia acute June 2:50pm Obesity affecting acute July 07, 2024 2:50pm acute July 07 2:50pm Recurrent UTI acute July 07, 2024 2:50pm Supervision of normal first acute July 07, 2024 2:50pm Anxiety acute August 04 10:37am Congenital fanrok-ewkjrql-eu nal reflux acute August 04, 2024 10:37am Current [...] Anxiety acute September 01, 2024 2:50pm Congenital jtdcfg-vzsmoay-sv nal reflux acute September 01, 2024 2: 50pm Current every day nicotine vaping acute September 01, 2024 2: 50pm Elevated serum creatinine acute September 01, 2024 2:50pm FH: hemophilia acute September 01, 2 025 2:50pm Obesity affecting acute September 01, 2024 2:50pm acute September 01, 2024 2:50pm Supervision of normal first acute September 01, 2024 2: 50pm Anxiety acute September 28, 2024 2:50pm Congenital aguahm-dunlffk-jk nal reflux acute September 28, 2024 2 :50pm Current every day nicotine vaping acute September 28, 2024 2 :50pm Elevated serum creatinine acute September 28, 2024 2:50pm FH: hemophilia acute September 28, 2024 2:50pm Kidney disease acute September 28, 2024 2:50pm Obesity affecting acute September 28, 2024 2:50pm acute September 28, 2024 2:50pm Recurrent UTI acute September 28, 2 025 2:50pm Supervision of normal first acute September 28, 2024 2 :50pm [facility] Work Phone: 1(386) 248-878503-11-2025 Evaluation note* Diagnosis Onset Date Resolution Status Admit Date Anxiety acute July 07 2:50pm Current every day nicotine vaping acute July 07, 2024 2:50pm FH: hemophilia acute June 2:50pm Obesity affecting acute July 07, 2024 2:50pm acute July 07 2:50pm Recurrent UTI acute July 07, 2024 2:50pm Supervision of normal first acute July 07, 2024 2:50pm Anxiety acute August 04 10:37am Congenital obnydw-pcobxda-xs nal reflux acute August 04, 2024 10:37am Current [...] Anxiety acute September 01, 2024 2:50pm Congenital jkfpda-jjzhhjb-wn nal reflux acute September 01, 2024 2: 50pm Current every day nicotine vaping acute September 01, 2024 2: 50pm Elevated serum creatinine acute September 01, 2024 2:50pm FH: hemophilia acute September 01, 2 025 2:50pm Obesity affecting acute September 01, 2024 2:50pm acute September 01, 2024 2:50pm Supervision of normal first acute September 01, 2024 2: 50pm Anxiety acute September 28, 2024 2:50pm Congenital xerpud-wrkiokr-ex nal reflux acute September 28, 2024 2 :50pm Current every day nicotine vaping acute September 28, 2024 2 :50pm Elevated serum creatinine acute September 28, 2024 2:50pm FH: hemophilia acute September 28, 2024 2:50pm Kidney disease acute September 28, 2024 2:50pm Obesity affecting acute September 28, 2024 2:50pm acute September 28, 2024 2:50pm Recurrent UTI acute September 28 025 2:50pm Supervision of normal first acute September 28, 2024 2 :50pm Anxiety acute October 27, 2024 1:38pm Congenital gwgkxj-ozxphze-ih nal reflux acute October 27, 2024 1 :38pm Current every day nicotine vaping acute October 27, 2024 1 :38pm Elevated serum creatinine acute October 27, 2024 1:38pm FH: hemophilia acute October 27, 2024 1:38pm Kidney disease acute October 27, 2024 1:38pm Obesity affecting acute October 27, 2024 1:38pm acute October 27, 2024 1:38pm Recurrent UTI acute October 27 1:38pm Supervision of normal first acute October 27, 2024 1 :38pm [facility] Work Phone: 1(752) 436-526002-06-2025 Evaluation note* Diagnosis Onset Date Resolution Status Admit Date Anxiety acute June 04, 2024 12:53pm Current every day nicotine vaping acute June 04 12:53pm FH: hemophilia acute June 042024 12:53pm Obesity affecting acute June 04, 2024 12:53pm acute June 04, 2024 12:53pm Recurrent [...] 2:50pm Anxiety acute August 04 10:37am Congenital rdvpws-redwqxl-lzife reflux acute 2024 10:37am Current every day nicotine vaping acute August 04, 2024 10:37am Elevated serum creatinine acute August 04, 2024 10:37am FH: hemophilia acute August 04, 2024 10:37am Obesity affecting acute August 04, 2024 10:37am acute August 04 10:37am Recurrent UTI acute August 04, 2024 10:37am Supervision of normal first acute August 04, 2024 10:37am Anxiety acute September 01, 2024 2:50pm Congenital cexvxc-wxgybxj-jqhuf reflux acute September 01, 2024 2:50pm Current every day nicotine vaping acute September 01, 2024 2: 50pm Elevated serum creatinine acute September 01, 2024 2:50pm FH: hemophilia acute September 01, 2:50pm Obesity affecting acute September 01, 2024 2:50pm acute September 01, 2024 2:50pm Supervision of normal first acute September 01, 2024 2: 50pm [facility] Work Phone: 1(102) 411-684002-06-2025 Evaluation note* Diagnosis Onset Date Resolution Status Admit Date Anxiety acute June 04, 2024 12:53pm Current every day nicotine vaping acute June 04 12:53pm FH: hemophilia acute June 042024 12:53pm Obesity affecting acute June 04, 2024 12:53pm acute June 04, 2024 12:53pm Recurrent [...] 2:50pm Anxiety acute August 04 10:37am Congenital omvuuf-hgkmcoe-ricxk reflux acute 2024 10:37am Current every day nicotine vaping acute August 04, 2024 10:37am Elevated serum creatinine acute August 04, 2024 10:37am FH: hemophilia acute August 04, 2024 10:37am Obesity affecting acute August 04, 2024 10:37am acute August 04 10:37am Recurrent UTI acute August 04, 2024 10:37am Supervision of normal first acute August 04, 2024 10:37am Anxiety acute September 01, 2024 2:50pm Congenital ipdvbb-ahreyqh-tvnpa reflux acute September 01, 2024 2:50pm Current every day nicotine vaping acute September 01, 2024 2: 50pm Elevated serum creatinine acute September 01, 2024 2:50pm FH: hemophilia acute September 01, 2 025 2:50pm Obesity affecting acute September 01, 2024 2:50pm acute September 01, 2024 2:50pm Supervision of normal first acute September 01, 2024 2: 50pm Anxiety acute September 28, 2024 2:50pm Congenital exvkjk-ypaltkl-tsdyn reflux acute September 28, 2024 2:50pm Current every day nicotine vaping acute September 28, 2024 2 :50pm Elevated serum creatinine acute September 28, 2024 2:50pm FH: hemophilia acute September 28, 2024 2:50pm Kidney disease acute September 28, 2024 2:50pm Obesity affecting acute September 28, 2024 2:50pm acute September 28, 2024 2:50pm Recurrent UTI acute September 28, 2 025 2:50pm Supervision of normal first acute September 28, 2024 2 :50pm [facility] Work Phone: 1(696) 635-676312-18-[address]Detempe [facility] 2023 12:59amComment.Satisfactory for evaluation. No endocervical component is identified.[facility] A#[id number] Harrison Community HospitalComment on above:Satisfactory for evaluation. No endocervical component is identified. 04-15-2024 NotePap Smear Specimen AdequacyDemymichigan medical center clare[facility] 2023 12:59amComment. Satisfactory for evaluation. No endocervical component is identified.[facility] A#[id number] Harrison Community HospitalComment on above:Satisfactory for evaluation. No endocervical component is identified.04-15-2024 Evaluation note * Diagnosis Onset Date Resolution Status Admit Date Recurrent UTI acute April 152023 11:20am Encounter for routine gynecological examination noneactive [facility] er 2023 11:20am Anxiety acute June 04, 2024 12:53pm Current every day nicotine vaping acute June 04 12:53pm FH: hemophilia acute June 042024 12:53pm Obesity affecting acute June 04, 2024 12:53pm acute June 04, 2024 12:53pm Recurrent [...] normal first acute July 07, 2024 2:50pm [facility] Work Phone: 1(241) 224-724712-18-2024 Evaluation note* Diagnosis Onset Date Resolution Status Admit Date Recurrent UTI acute April 152023 11:20am Encounter for routine gynecological examination noneactive Decemb er 2023 11:20am Anxiety acute June 04, 2024 12:53pm Current every day nicotine vaping acute June 04 12:53pm FH: hemophilia acute June 042024 12:53pm Obesity affecting acute June 04, 2024 12:53pm acute June 04, 2024 12:53pm Recurrent [...] 2:50pm Anxiety acute August 04 10:37am Congenital moynkf-otxslll-nvmjb reflux acute Apr2024 10:37am Current every day nicotine vaping acute August 04, 2024 10:37am Elevated serum creatinine acute August 04, 2024 10:37am FH: hemophilia acute August 04, 2024 10:37am Obesity affecting acute August 04, 2024 10:37am acute August 04 10:37am Recurrent UTI acute August 04, 2024 10:37am Supervision of normal first acute August 04, 2024 10:37am [facility] Work Phone: Progress note Author Susie Solomon [facility] Note Date/Time December 08, 2024 10 :10am [facility] [address] [place] [address], [address] [place] [address] OFFICE VISIT Date of Service: 12/08/24 MR#: [id number] Acct: [id number] Name: LUCIANO KENDALL Rep #: [id number] : 2000 Provider: ALEXANDRA Solomon Age/Sex: 24/F Location: [facility] Status: Signed Intake Vital Signs 10/27/24 13:28 11/27/24 14:23 12/08/24 09:37 Height 5 ft 8 in 5 ft 8 in 5 ft 8 in Weight: 286 lb 8 oz BMI 43.5 BP 130/82 H Intake Visit Reasons: 36wk ob Chief Complaint: 36wk ob Static Balancer Required: No Is patient in pain?: No Allergies No Known Allergies Allergy (Verified 12/08/24 09:33) Medications ?Medication ?Instructions ?Recorded ?Confirmed ?Type Bacillus coagulans 250 million 2 tab PO ONCE 05/26/24 12/08/24 History cell chewable tablet (Probiotic (B. coagulans)) PNV 153-FA 400 mcg-om3 35 mg-dha tab PO 05/26/2412/08 History 25 mg-epa 5 mg-fish oil chew tablet ascorbate calcium (vitamin C) 500 500 mg PO QDAY 05/2612/08/24 History mg tablet ferrous sulfate 137 mg (45 mg 137 mg PO QDAY 05/26/24 12/08/24 History iron) tablet,extended release (Slow Fe) ondansetron 4 mg disintegrating 4 mg PO Q4H PRN nausea and 08/04/24 12/08/24 Rx tablet vomiting #60 tabs Last Menstrual Period: 04/01/24 : No Have you fallen in the past year?: No PFSH PFSH Medical History Congenital ngflve-kxfhqkn-xolst reflux Gallstones UTI (urinary tract infection) Asthma Surgical History Hx of cholecystectomy Hx of tonsillectomy Family History Father Diabetes Type 1 Aunt Thyroid disorder Maternal Mother Thyroid disorder enlarged Grandmother Breast cancer Paternal Social History adopted: No household members: significant other 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al status: employed 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[employer] 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al exposures/hazards: No pets [...] 1-2 times per week duration: 60-90 minutes/day sid/buddhism: None seatbelt use: always do you feel safe at home: Yes additional social history: significant other- Juan History 1 Elective abortions Hx Para 0 Spontaneous abortions Hx # Term Pregnancies Ectopic pregnancies Hx # Pregnancies Multiple births # of living children HPI 36wk ob Details: LUCIANO KENDALL is a 24 year old who presents for routine OB visit. OB Visit TERRENCE Calculator Estimated Delivery Date Method Current WG Current Estimate 01/06/25 LMP (Certain) 35w 6d Other Estimates 01/09/25 Ultrasound #1 35w 3d Expected Delivery Route/Plan Labor Preferences- CB/BF classes: encouraged- will take online labor support person: Wesley labor intervention preferences: epidural pain management options preferred: [] cut cord/dad catch: maybe cord : yes PP control planned: discussed discussed possible routes of delivery and associated risks: [] special requests: [] Specific Issue/Plans Covid status: [] Flu vaccine: [] Tdap vaccine: 10/27/24 Rhogam: NA LARC form signed: yes movement and labor precautions reviewed. Problem list reviewed and updated with the most current plan of care details and appropriate orders placed. Relevant counseling for the gestational age provided. Continue routine care and follow up unless otherwise noted in visit notes/problem list details Initial Weight: 226 lb Date -?-?-?-?-?-?-?-?-?-?-?-?- EGA Weight BP Urine Prot -?-?-?-?-?-?-?-?-?-?-?-?- Glucose FHR FuHt Pres Dilation -?-?-?-?-?-?-?-?-?-?-?-?- Effaced St Visit Note 06/04/24 -?-?-?-?-?-?-?-?-?-?-?-?- 9w 1d 226 lb 4 oz (+4 oz) 128/82 -?-?-?-?-?-?-?-?-?-?-?-?- 175 -?-?-?-?-?-?-?-?-?-?-?-?- KW- CRL cons wit h dates. accepts nipt. 07/07/24 -?-?-?-?-?-?-?-?-?-?-?-?- 13w 6d 228 lb 8 oz (+2 lb 8 oz) 131/84 Negative -?-?-?-?-?-?-?-?-?-?-?-?- Negative 145 -?-?-?-?-?-?-?-?-?-?-?-?- Sm- no vb crampi ng 08/04/24 -?-?-?-?-?-?-?-?-?-?-?-?- 17w 6d 235 lb 6 oz (+9 lb 6 oz) 124/82 -?-?-?-?-?-?-?-?-?-?-?-?- 153 -?-?-?-?-?-?-?-?-?-?-?-?- MH-No VB. Reques ts labs for urinary reflux today:does q3mo. Denies UTI sx. Alexandra sent:going on cruise. 09/01/24 -?-?-?-?-?-?-?-?-?-?-?-?- 21w 6d 246 lb 2 oz (+20 lb 2 oz) 125/81 Negative -?-?-?-?-?-?-?-?-?-?-?-?- Negative 145 -?-?-?-?-?-?-?-?-?-?-?-?- JV- no lof, vagi nal bleeding and feeling some movements. has anterior placenta. Has lots of heart burn. will start pepcid. anatomy scan reviewed . 09/28/24 -?-?-?-?-?-?-?-?-?-?-?-?- 25w 5d 262 lb (+36 lb) 122/76 Negative -?-?-?-?-?-?-?-?-?-?-?-?- Negative 141 -?-?-?-?-?-?-?-?-?-?-?-?- No VB. Good FM. URI and saw Urgent care and starting amoxil. Enc rest, fluids etc. 10/27/24 -?-?-?-?-?-?-?-?-?-?-?-?- 29w 6d 265 lb 4 oz (+39 lb 4 oz) 133/87 Negative -?-?-?-?-?-?-?-?-?-?-?-?- Negative 142 30 -?-?-?-?-?-?-?-?-?-?-?-?- MH-No Vb, LOF. G ood FM. Tdap 11/09/24 -?-?-?-?-?-?-?-?-?-?-?-?- 31w 5d 273 lb 4 oz (+47 lb 4 oz) 133/84 Negative -?-?-?-?-?-?-?-?-?-?-?-?- Negative 140 32 -?-?-?-?-?-?-?-?-?-?-?-?- SM- no vb lof go od fm no regular ctx reviewed good nutrition in 11/19/24 -?-?-?-?-?-?-?-?-?-?-?-?- 33w 1d 272 lb 6 oz (+46 lb 6 oz) 126/84 Negative -?-?-?-?-?-?-?-?-?-?-?-?- Negative 140 33 -?-?-?-?-?-?-?-?-?-?-?-?- SM- no vb lof go od fm no regular ctx 11/27/24 -?-?-?-?-?-?-?-?-?-?-?-?- 34w 2d 282 lb 3 oz (+56 lb 3 oz) 138/85 Negative -?-?-?-?-?-?-?-?-?-?-?-?- Negative 145 34 -?-?-?-?-?-?-?-?-?-?-?-?- SM- n ovb lof go od f mn oregualr ctx 12/08/24 -?-?-?-?-?-?-?-?-?-?-?-?- 35w 6d 286 lb 8 oz (+60 lb 8 oz) 130/82 Negative -?-?-?-?-?-?-?-?-?-?-?-?- Negative 160 36 -?-?-?-?-?-?-?-?-?-?-?-?- KW- no vb/lof/ct x. good fm discussed gbs for next week. ACOG First Trimester First Trimester: Discussed Second Trimester Second Trimester: Signs and Symptoms of Labor, Selecting a care provider, Reproductive Life Planning & Contreception, Care Planning, Depression/Anxiety and Intimate Partner Violence; Discussed Tobacco Cessation Third Trimester Third Trimester: Pain Management Plans, Labor support person(s), Immediate Larc, Signs and Symptoms of Preeclampsia, Feeding No , Education and Family Medical Leave or Disability Forms ROS Const Reports system reviewed and no additional complaints, except as documented Eyes Reports system reviewed and no additional complaints, except as documented ENT Reports system reviewed and no additional complaints, except as documented Card Reports system reviewed and no additional complaints, except as documented Resp Reports system reviewed and no additional complaints, except as documented GI Reports system reviewed and no additional complaints, except as documented, Denies nausea and Denies vomiting Reports system reviewed and no additional complaints, except as documented Musc Reports system reviewed and no additional complaints, except as documented Skin/Breast Reports system reviewed and no additional complaints, except as documented Neuro Yes system reviewed and no additional complaints, except as documented Psych Reports system reviewed and no additional complaints, except as documented Endo Reports system reviewed and no additional complaints, except as documented Julian/Lymph Reports system reviewed and no additional complaints, except as documented Aller/Immun Reports system reviewed and no additional complaints, except as documented Exam Const General: cooperative, healthy appearing and no acute distress Orientation: alert, awake and oriented x3 Neck Neck: normal visual inspection and full ROM Resp Effort & Inspection: normal respiratory effort, able to speak in complete sentences and symmetric chest movement GI Inspection: normal to inspection Palpation: soft and other Other: gravid Skin General: no rashes or lesions noted Neuro General: patient alert, patient awake and patient oriented x3 Cognition: normal cognition Speech: speech normal Gait: normal gait Motor: muscle tone normal throughout Extrem General: normal to inspection and full ROM Psych Appearance: grossly normal Mental Status: mental status grossly normal Mood: congruent mood Affect: normal affect Speech and Movement: speech and movement normal Attitude: cooperative Thought Process: normal Thought Content: normal Judgment: judgment good Results POC Urinalysis 2 Dip (Clinic) Office Urine Glucose Negative Last Edit by Nanette Feliciano on 12/08/24 09:44 Office Urine Protein Negative Last Edit by Nanette Feliciano on 12/08/24 09:44 Coding Level of Care Code OB Routine Diagnoses Kidney disease N28.9 Elevated serum creatinine R79.89 Congenital aujghu-qlqwmrf-psmmt reflux Q62.7 Current every day nicotine vaping Z72.0 Obesity affecting in second trimester, unspecified obesity type O99.212 Obesity type affecting : unspecified obesity Trimester: second trimester Encounter for supervision of normal first in third trimester Z34.03 Trimester: third trimester 35 weeks gestation of Z3A.35 Weeks of gestation: 35 weeks Anxiety F41.9 FH: hemophilia Z83.2 Assessment and Plan Assessment and Plan (1) Kidney disease: Status: Acute (2) Elevated serum creatinine: Status: Acute Comment: with her reflux-runs just above normal. Follows with Dr Worley. Labs Q3mo:CMP and urine P/C ratio: 7/1: (3) Congenital hnecem-iwwghwo-azhll reflux: Status: Acute Comment: check urine func Q3 mo:CMP and urine PC ratio (4) Current every day nicotine vaping: Status: Acute Comment: Has decreased % of nicotine, considering quitting, smoking education provided (5) Obesity affecting : Status: Acute Qualifiers: Obesity type affecting : unspecified obesity Trimester: second trimester Qualified Code(s): O99.212 - Obesity complicating , second trimester Comment: HgbA1c (6) Supervision of normal first : Status: Acute Qualifiers: Trimester: third trimester Qualified Code(s): Z34.03 - Encounter for supervision of normal first , third trimester Comment: PRR, , TERRENCE [birth year],girl Shelbi Significant other Juan. nl anatomy (7) : Status: Acute Qualifiers: Weeks of gestation: 35 weeks Qualified Code(s): Z3A.35 - 35 weeks gestation of Comment: NIPT low risk. nl anatomy (8) Anxiety: Status: Acute Comment: not medicated; stable (9) FH: hemophilia: Status: Acute Comment: Maternal Aunt, declined testing. the aunt has a different mom than her mom. Orders: Orders POC Urinalysis 2 Dip (Clinic) Today Plan Details Additional Comments: ACOG trimester education reviewed and updated. see problem list details for updated plan management information and see below for orders placed at this visit. GA appropriate handout given. Clinical Quality Measures Falls Risk Screening/Assistive Devices Have you fallen in the past year?: No 12/08/24 1010 <Electronically signed by Susie cortés CNM> Date _ Susie Solomon CNM Cosigner Signature: Date (if applicable) CC: ~ [facility] [place] Work Phone: Progress note Author Nita Mcintosh [facility] Note Date/Time December 22, 2024 1: 20pm [facility] [address], [address] [place] [address] OFFICE VISIT Date of Service: 12/22/24 MR#: [id number] Acct: [id number] Name: LUCIANO KENDALL Rep #: [id number] : 2000 Provider: Dr. Marcio Mcintosh MD Age/Sex: 24/F Location: [facility] Status: Signed Intake Vital Signs 11/09/24 15:36 11/19/24 08:40 12/17/24 15:50 12/22/24 12:59 Height 5 ft 8 in 5 ft 8 in 5 ft 8 in 5 ft 8 in Weight: 293 lb BMI 44.5 BP 119/83 H Intake Visit Reasons: 38 wk ob Static Balancer Required: No Is patient in pain?: No Allergies No Known Allergies Allergy (Verified 12/22/24 13:01) Medications ?Medication ?Instructions ?Recorded ?Confirmed ?Type Bacillus coagulans 250 million 2 tab PO ONCE 05/26/24 12/22/24 History cell chewable tablet (Probiotic (B. coagulans)) PNV 153-FA 400 mcg-om3 35 mg-dha tab PO 05/26/2412/22 History 25 mg-epa 5 mg-fish oil chew tablet ascorbate calcium (vitamin C) 500 500 mg PO QDAY 05/2612/22/24 History mg tablet ferrous sulfate 137 mg (45 mg 137 mg PO QDAY 05/26/24 12/22/24 History iron) tablet,extended release (Slow Fe) ondansetron 4 mg disintegrating 4 mg PO Q4H PRN nausea and 08/04/24 12/22/24 Rx tablet vomiting #60 tabs Last Menstrual Period: 04/01/24 Zika: Zika virus screening: Negative : No PFSH PFSH Medical History Congenital infvzp-zysmrdp-zvhwt reflux Gallstones UTI (urinary tract infection) Asthma Surgical History Hx of cholecystectomy Hx of tonsillectomy Family History Father Diabetes Type 1 Aunt Thyroid disorder Maternal Mother Thyroid disorder enlarged Grandmother Breast cancer Paternal Social History adopted: No household members: significant other 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al status: employed 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 OB Visit TERRENCE Calculator Estimated Delivery Date Method Current WG Current Estimate 01/06/25 LMP (Certain) 37w 6d Other Estimates 01/09/25 Ultrasound #1 37w 3d Expected Delivery Route/Plan Labor Preferences- CB/BF classes: encouraged- will take online labor support person: Wesley labor intervention preferences: epidural pain management options preferred: [] cut cord/dad catch: maybe cord : yes PP control planned: discussed discussed possible routes of delivery and associated risks: [] special requests: [] Specific Issue/Plans Covid status: [] Flu vaccine: [] Tdap vaccine: 10/27/24 Rhogam: NA LARC form signed: yes movement and labor precautions reviewed. Problem list reviewed and updated with the most current plan of care details and appropriate orders placed. Relevant counseling for the gestational age provided. Continue routine care and follow up unless otherwise noted in visit notes/problem list details Initial Weight: 226 lb Date -?-?-?-?-?-?-?-?-?-?-?-?- EGA Weight BP Urine Prot -?-?-?-?-?-?-?-?-?-?-?-?- Glucose FHR FuHt Pres Dilation -?-?-?-?-?-?-?-?-?-?-?-?- Effaced St Visit Note 06/04/24 -?-?-?-?-?-?-?-?-?-?-?-?- 9w 1d 226 lb 4 oz (+4 oz) 128/82 -?-?-?-?-?-?-?-?-?-?-?-?- 175 -?-?-?-?-?-?-?-?-?-?-?-?- KW- CRL cons wit h dates. accepts nipt. 07/07/24 -?-?-?-?-?-?-?-?-?-?-?-?- 13w 6d 228 lb 8 oz (+2 lb 8 oz) 131/84 Negative -?-?-?-?-?-?-?-?-?-?-?-?- Negative 145 -?-?-?-?-?-?-?-?-?-?-?-?- Sm- no vb craangeloi ng 08/04/24 -?-?-?-?-?-?-?-?-?-?-?-?- 17w 6d 235 lb 6 oz (+9 lb 6 oz) 124/82 -?-?-?-?-?-?-?-?-?-?-?-?- 153 -?-?-?-?-?-?-?-?-?-?-?-?- MH-No VB. Reques ts labs for urinary reflux today:does q3mo. Denies UTI sx. Alexandra sent:going on cruise. 09/01/24 -?-?-?-?-?-?-?-?-?-?-?-?- 21w 6d 246 lb 2 oz (+20 lb 2 oz) 125/81 Negative -?-?-?-?-?-?-?-?-?-?-?-?- Negative 145 -?-?-?-?-?-?-?-?-?-?-?-?- JV- no lof, vagi nal bleeding and feeling some movements. has anterior placenta. Has lots of heart burn. will start pepcid. anatomy scan reviewed . 09/28/24 -?-?-?-?-?-?-?-?-?-?-?-?- 25w 5d 262 lb (+36 lb) 122/76 Negative -?-?-?-?-?-?-?-?-?-?-?-?- Negative 141 -?-?-?-?-?-?-?-?-?-?-?-?- No VB. Good FM. URI and saw Urgent care and starting amoxil. Enc rest, fluids etc. 10/27/24 -?-?-?-?-?-?-?-?-?-?-?-?- 29w 6d 265 lb 4 oz (+39 lb 4 oz) 133/87 Negative -?-?-?-?-?-?-?-?-?-?-?-?- Negative 142 30 -?-?-?-?-?-?-?-?-?-?-?-?- MH-No Vb, LOF. G ood FM. Tdap 11/09/24 -?-?-?-?-?-?-?-?-?-?-?-?- 31w 5d 273 lb 4 oz (+47 lb 4 oz) 133/84 Negative -?-?-?-?-?-?-?-?-?-?-?-?- Negative 140 32 -?-?-?-?-?-?-?-?-?-?-?-?- SM- no vb lof go od fm no regular ctx reviewed good nutrition in 11/19/24 -?-?-?-?-?-?-?-?-?-?-?-?- 33w 1d 272 lb 6 oz (+46 lb 6 oz) 126/84 Negative -?-?-?-?-?-?-?-?-?-?-?-?- Negative 140 33 -?-?-?-?-?-?-?-?-?-?-?-?- SM- no vb lof go od fm no regular ctx 11/27/24 -?-?-?-?-?-?-?-?-?-?-?-?- 34w 2d 282 lb 3 oz (+56 lb 3 oz) 138/85 Negative -?-?-?-?-?-?-?-?-?-?-?-?- Negative 145 34 -?-?-?-?-?-?-?-?-?-?-?-?- SM- n ovb lof go od f mn oregualr ctx 12/08/24 -?-?-?-?-?-?-?-?-?-?-?-?- 35w 6d 286 lb 8 oz (+60 lb 8 oz) 130/82 Negative -?-?-?-?-?-?-?-?-?-?-?-?- Negative 160 36 -?-?-?-?-?-?-?-?-?-?-?-?- KW- no vb/lof/ct x. good fm discussed gbs for next week. 12/17/24 -?-?-?-?-?-?-?-?-?-?-?-?- 37w 1d 291 lb 2 oz (+65 lb 2 oz) 138/87 Negative -?-?-?-?-?-?-?-?-?-?-?-?- Negative 150 37 Cephalic 0 -?-?-?-?-?-?-?-?-?-?-?-?- SM- no vb lof go od fm no regular ctx 12/22/24 -?-?-?-?-?-?-?-?-?-?-?-?- 37w 6d 293 lb (+67 lb) 119/83 Negative -?-?-?-?-?-?-?-?-?-?-?-?- Negative 140 38 Cephalic 0 -?-?-?-?-?-?-?-?-?-?-?-?- SM- no vb lof go od fm n oregular ctx ACOG First Trimester First Trimester: Discussed Second Trimester Second Trimester: Signs and Symptoms of Labor, Selecting a care provider, Reproductive Life Planning & Contreception, Care Planning, Depression/Anxiety and Intimate Partner Violence; Discussed Tobacco Cessation Third Trimester Third Trimester: Pain Management Plans, Labor support person(s), Immediate Larc, Signs and Symptoms of Preeclampsia, Feeding No , Education and Family Medical Leave or Disability Forms ROS Const Denies fever(s) GI Reports as per HPI and Denies abdominal pain Reports as per HPI, Denies abnormal vaginal bleeding, Denies dysuria and Denies vaginal discharge Exam Const General: healthy appearing, comfortable and no acute distress GI Inspection: normal to inspection Palpation: soft and nontender Results POC Urinalysis 2 Dip (Clinic) Office Urine Glucose Negative Last Edit by Jennifer Rae on 12/22/24 13:10 Office Urine Protein Negative Last Edit by Jennifer Rae on 12/22/24 13:10 Coding Level of Care Code OB Routine Diagnoses Kidney disease N28.9 Elevated serum creatinine R79.89 Congenital uhgjjn-ecvxgyh-tkbhn reflux Q62.7 Current every day nicotine vaping Z72.0 Obesity affecting in second trimester, unspecified obesity type O99.212 Obesity type affecting : unspecified obesity Trimester: second trimester Encounter for supervision of normal first in third trimester Z34.03 Trimester: third trimester 37 weeks gestation of Z3A.37 Weeks of gestation: 37 weeks Anxiety F41.9 FH: hemophilia Z83.2 Assessment and Plan Assessment and Plan (1) Kidney disease: Status: Acute (2) Elevated serum creatinine: Status: Acute Comment: with her reflux-runs just above normal. Follows with Dr Worley. Labs Q3mo:CMP and urine P/C ratio: 7/1: (3) Congenital iheygk-hsbhlbr-hbseu reflux: Status: Acute Comment: check urine func Q3 mo:CMP and urine PC ratio (4) Current every day nicotine vaping: Status: Acute Comment: Has decreased % of nicotine, considering quitting, smoking education provided (5) Obesity affecting : Status: Acute Qualifiers: Obesity type affecting : unspecified obesity Trimester: second trimester Qualified Code(s): O99.212 - Obesity complicating , second trimester Comment: HgbA1c (6) Supervision of normal first : Status: Acute Qualifiers: Trimester: third trimester Qualified Code(s): Z34.03 - Encounter for supervision of normal first , third trimester Comment: PRR, , TERRENCE 01[birth year]06[birth year]25,girl Shelbi Significant other Juan. nl anatomy (7) : Status: Acute Qualifiers: Weeks of gestation: 37 weeks Qualified Code(s): Z3A.37 - 37 weeks gestation of Comment: GBS Neg, NIPT low risk. nl anatomy (8) Anxiety: Status: Acute Comment: not medicated; stable (9) FH: hemophilia: Status: Acute Comment: Maternal Aunt, declined testing. the aunt has a different mom than her mom. Orders: Orders POC Urinalysis 2 Dip (Clinic) Today 12/22/24 1320 <Electronically signed by Nita sullivan MD> Date _ Nita Mcintosh MD Cosign Signature: Date (if applicable) CC: ~ [facility] Work Phone: Reason for referral (narrative)No reason for referral information availableW[facility] Work Phone: Summary Purpose Family History [...] for Visit Chief Complaint Admit Date Annual ([employer]ERRY [employer]ER [employer]PER[employer]) April 15, 2024 11:20am UTI April 15, [...] 1 2:53pm Supervision of normal first Fe 2024 12:53pm Anxiety July 07, 2024 2:5 0pm Current every day nicotine vaping July 07, 2024 2:50pm FH: hemophilia July 07, 2024 2:5 0pm Obesity affecting July 07, 2024 2:50pm July 07, 2024 2:5 0pm Recurrent UTI July 07, 2024 2:5 0pm Supervision of normal first 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 UTI April 15, [...] 1 2:53pm Supervision of normal first Fe 2024 12:53pm Anxiety July 07, 2024 2:5 0pm Current every day nicotine vaping July 07, 2024 2:50pm FH: hemophilia July 07, 2024 2:5 0pm Obesity affecting July 07, 2024 2:50pm July 07, 2024 2:5 0pm Recurrent UTI July 07, 2024 2:5 0pm Supervision of normal first [facility] 2024 2:50pm Anxiety August 04, 2024 10:3 7am Congenital cnugji-yerrgqb-tldpd reflux A pril 2024 10:37am Current every [...] 1 2:53pm Supervision of normal first [place] 2024 12:53pm Anxiety July 07, 2024 2:5 0pm Current every day nicotine vaping July 07, 2024 2:50pm FH: hemophilia July 07, 2024 2:5 0pm Obesity affecting July 07, 2024 2:50pm July 07, 2024 2:5 0pm Recurrent UTI July 07, 2024 2:5 0pm Supervision of normal first [facility] 2024 2:50pm Anxiety August 04, 2024 10:3 7am Congenital nvszog-uoeywps-lpuuk reflux A pril 2024 10:37am Current every day nicotine vaping August 04, 2024 10:37am Elevated serum creatinine August 04 10:37am FH: hemophilia August 04, 2024 10:3 7am Obesity affecting August 04, 2 025 10:37am August 04, 2024 10:3 7am Recurrent UTI August 04, 2024 10:3 7am Supervision of normal first Ap ril 2024 10:37am Anxiety September 01, 2024 2:50pm Congenital sighas-wdedwga-pmyoz reflux M ay 2024 2:50pm Current every [...] 2:5 0pm Supervision of normal first [facility] 2024 2:50pm Anxiety August 04, 2024 10:3 7am Congenital owcequ-ttgnwnk-yduba reflux A pril 2024 10:37am Current every day nicotine vaping August 04, 2024 10:37am Elevated serum creatinine August 04 10:37am FH: hemophilia August 04, 2024 10:3 7am Obesity affecting August 04, 2 025 10:37am August 04, 2024 10:3 7am Recurrent UTI August 04, 2024 10:3 7am Supervision of normal first Ap ril 2024 10:37am Anxiety September 01, 2024 2:50pm Congenital hmylbf-grgyyba-snslg reflux M ay 2024 2:50pm Current every day nicotine vaping August 2:50pm Elevated serum creatinine September 01, 2024 2:50pm FH: hemophilia September 01, 2024 2:50pm Obesity affecting September 01 2:50pm September 01, 2024 2:50pm Supervision of normal first Ma y 2024 2:50pm Anxiety September 28, 2024 2:50p m Congenital ghezib-yzgmboe-ynjvi reflux J une 2024 2:50pm Current every [...] 2:5 0pm Supervision of normal first [facility] 2024 2:50pm Anxiety August 04, 2024 10:3 7am Congenital atxdns-txnxmup-sdybw reflux A pril 2024 10:37am Current every day nicotine vaping August 04, 2024 10:37am Elevated serum creatinine August 04 10:37am FH: hemophilia August 04, 2024 10:3 7am Obesity affecting August 04, 2 025 10:37am August 04, 2024 10:3 7am Recurrent UTI August 04, 2024 10:3 7am Supervision of normal first Ap ril 2024 10:37am Anxiety September 01, 2024 2:50pm Congenital scaklx-cqqqide-kthbn reflux M ay 2024 2:50pm Current every day nicotine vaping August 2:50pm Elevated serum creatinine September 01, 2024 2:50pm FH: hemophilia September 01, 2024 2:50pm Obesity affecting September 01 2:50pm September 01, 2024 2:50pm Supervision of normal first Ma y 2024 2:50pm Anxiety September 28, 2024 2:50p m Congenital xccafl-eaczqcz-nuaow reflux J une 2024 2:50pm Current every [...] 2:5 0pm Supervision of normal first [facility] 2024 2:50pm Anxiety August 04, 2024 10:3 7am Congenital bznzwp-ewyukvc-dlxds reflux A pril 2024 10:37am Current every day nicotine vaping August 04, 2024 10:37am Elevated serum creatinine August 04 10:37am FH: hemophilia August 04, 2024 10:3 7am Obesity affecting August 04, 2 025 10:37am August 04, 2024 10:3 7am Recurrent UTI August 04, 2024 10:3 7am Supervision of normal first Ap ril 2024 10:37am Anxiety September 01, 2024 2:50pm Congenital vxnzio-ouqwnzd-pfmjf reflux M ay 2024 2:50pm Current every day nicotine vaping August 2:50pm Elevated serum creatinine September 01, 2024 2:50pm FH: hemophilia September 01, 2024 2:50pm Obesity affecting September 01 2:50pm September 01, 2024 2:50pm Supervision of normal first Ma y 2024 2:50pm Anxiety September 28, 2024 2:50p m Congenital ohunjv-sjqhror-sshgx reflux J une 2024 2:50pm Current every [...] Anxiety October 27, 2024 1:38p m Congenital ekmuaj-likloox-cijkf reflux J gary 2024 1:38pm Current every day nicotine vaping October 272024 1:38pm Elevated serum creatinine October 27, 2024 1:38pm FH: hemophilia October 27, 2024 1:38p m Kidney disease October 27, 2024 1:38p m Obesity affecting October 27 1:38pm October 27, 2024 1:38p m Recurrent UTI October 27, 2024 1:38p m Supervision of normal first Ju ly 2024 1:38pm Chief Complaint Admit Date 18 wk ob August 04, 2024 10:3 7am ANATOMY SCAN August 19, 2024 3:1 5pm 22 wk ob September 01, 2024 2:50pm congestion, cough, sore throat September 28, 2024 7:26am 26wk ob September 28, 2024 2:50p m 30wk ob October 27, 2024 1:38p m 32wk ob November 09, 2024 3:21 pm Reason for Visit Admit Date Anxiety August 04, 2024 10:3 7am Congenital cgwcia-dehlfqz-hvpik reflux A pril 2024 10:37am Current every day nicotine vaping August 04, 2024 10:37am Elevated serum creatinine August 04 10:37am FH: hemophilia August 04, 2024 10:3 7am Obesity affecting August 04, 2 025 10:37am August 04, 2024 10:3 7am Supervision of normal first Ap ril 2024 10:37am Recurrent UTI August 04, 2024 10:3 7am Anxiety September 01, 2024 2:50pm Congenital gcihcv-vjjrmxx-wqfao reflux M ay 2024 2:50pm Current every day nicotine vaping August 2:50pm Elevated serum creatinine September 01, 2024 2:50pm FH: hemophilia September 01, 2024 2:50pm Obesity affecting September 01 2:50pm September 01, 2024 2:50pm Supervision of normal first Ma y 2024 2:50pm Anxiety September 28, 2024 2:50p m Congenital hxlmye-eiclcll-ailzp reflux J une 2024 2:50pm Current every day nicotine vaping September 282024 2:50pm Elevated serum creatinine September 28, 2024 2:50pm FH: hemophilia September 28, 2024 2:50p m Kidney disease September 28, 2024 2:50p m Obesity affecting September 28 2:50pm September 28, 2024 2:50p m Supervision of normal first Ju ne 2024 2:50pm Recurrent UTI September 28, 2024 2:50p m Anxiety October 27, 2024 1:38p m Congenital ynmqvd-mrbdvdf-mefnk reflux J gary 2024 1:38pm Current every day nicotine vaping October 272024 1:38pm Elevated serum creatinine October 27, 2024 1:38pm FH: hemophilia October 27, 2024 1:38p m Kidney disease October 27, 2024 1:38p m Obesity affecting October 27 1:38pm October 27, 2024 1:38p m Supervision of normal first Ju ly 2024 1:38pm Recurrent UTI October 27, 2024 1:38p m Anxiety November 09, 2024 3:21 pm Congenital ejxtlu-tyvzbop-wxoij reflux J gary 2024 3:21pm Current every day nicotine vaping October 272024 3:21pm Elevated serum creatinine November 09 3:21pm FH: hemophilia November 09, 2024 3:21 pm Kidney disease November 09, 2024 3:21 pm Obesity affecting November 09, 2 025 3:21pm November 09, 2024 3:21 pm Supervision of normal first Ju ly 2024 3:21pm Chief Complaint Admit Date 18 wk ob August 04, 2024 10:3 7am ANATOMY SCAN August 19, 2024 3:1 5pm 22 wk ob September 01, 2024 2:50pm congestion, cough, sore throat September 28, 2024 7:26am 26wk ob September 28, 2024 2:50p m 30wk ob October 27, 2024 1:38p m 32wk ob November 09, 2024 3:21 pm UA November 19, 2024 8:30 am Reason for Visit Admit Date Anxiety August 04, 2024 10:3 7am Congenital jmxyhe-mqwbpfu-zgezc reflux A pril 2024 10:37am Current every day nicotine vaping August 04, 2024 10:37am Elevated serum creatinine August 04 10:37am FH: hemophilia August 04, 2024 10:3 7am Obesity affecting August 04, 2 025 10:37am August 04, 2024 10:3 7am Supervision of normal first Ap ril 2024 10:37am Recurrent UTI August 04, 2024 10:3 7am Anxiety September 01, 2024 2:50pm Congenital fazvka-ubaagwr-tghqt reflux M ay 2024 2:50pm Current every day nicotine vaping August 2:50pm Elevated serum creatinine September 01, 2024 2:50pm FH: hemophilia September 01, 2024 2:50pm Obesity affecting September 01 2:50pm September 01, 2024 2:50pm Supervision of normal first Ma y 2024 2:50pm Anxiety September 28, 2024 2:50p m Congenital jdkcay-tshbsam-thyun reflux J une 2024 2:50pm Current every day nicotine vaping September 282024 2:50pm Elevated serum creatinine September 28, 2024 2:50pm FH: hemophilia September 28, 2024 2:50p m Kidney disease September 28, 2024 2:50p m Obesity affecting September 28 2:50pm September 28, 2024 2:50p m Supervision of normal first Ju ne 2024 2:50pm Recurrent UTI September 28, 2024 2:50p m Anxiety October 27, 2024 1:38p m Congenital gkpguc-uetywir-ihrsq reflux J gary 2024 1:38pm Current every day nicotine vaping October 272024 1:38pm Elevated serum creatinine October 27, 2024 1:38pm FH: hemophilia October 27, 2024 1:38p m Kidney disease October 27, 2024 1:38p m Obesity affecting October 27 1:38pm October 27, 2024 1:38p m Supervision of normal first Ju ly 2024 1:38pm Recurrent UTI October 27, 2024 1:38p m Anxiety November 09, 2024 3:21 pm Congenital ahzehv-oreohki-oqpja reflux J gary 2024 3:21pm Current every day nicotine vaping October 272024 3:21pm Elevated serum creatinine November 09 3:21pm FH: hemophilia November 09, 2024 3:21 pm Kidney disease November 09, 2024 3:21 pm Obesity affecting November 09, 2 025 3:21pm November 09, 2024 3:21 pm Supervision of normal first Ju ly 2024 3:21pm Anxiety November 19, 2024 8:30 am Congenital odgkdy-pempqvb-xsrcs reflux J gary 2024 8:30am Current every day nicotine vaping October 282024 8:30am Elevated serum creatinine November 19 8:30am FH: hemophilia November 19, 2024 8:30 am Kidney disease November 19, 2024 8:30 am Obesity affecting November 19, 025 8:30am November 19, 2024 8:30 am Supervision of normal first Ju ly 2024 8:30am Chief Complaint Admit Date 18 wk ob August 04, 2024 10:3 7am ANATOMY SCAN August 19, 2024 3:1 5pm 22 wk ob September 01, 2024 2:50pm congestion, cough, sore throat September 28, 2024 7:26am 26wk ob September 28, 2024 2:50p m 30wk ob October 27, 2024 1:38p m 32wk ob November 09, 2024 3:21 pm UA November 19, 2024 8:30 am 34wk ob November 27, 2024 2:1 8pm Reason for Visit Admit Date Anxiety August 04, 2024 10:3 7am Congenital koadyd-hfkjhnn-rkkyd reflux A pril 2024 10:37am Current every day nicotine vaping August 04, 2024 10:37am Elevated serum creatinine August 04 10:37am FH: hemophilia August 04, 2024 10:3 7am Obesity affecting August 04, 2 025 10:37am August 04, 2024 10:3 7am Supervision of normal first Ap ril 2024 10:37am Recurrent UTI August 04, 2024 10:3 7am Anxiety September 01, 2024 2:50pm Congenital fpvsxp-sktsqer-llkde reflux M ay 2024 2:50pm Current every day nicotine vaping August 2:50pm Elevated serum creatinine September 01, 2024 2:50pm FH: hemophilia September 01, 2024 2:50pm Obesity affecting September 01 2:50pm September 01, 2024 2:50pm Supervision of normal first Ma y 2024 2:50pm Anxiety September 28, 2024 2:50p m Congenital dkbwzj-znhcjiv-cmfgx reflux J une 2024 2:50pm Current every day nicotine vaping September 282024 2:50pm Elevated serum creatinine September 28, 2024 2:50pm FH: hemophilia September 28, 2024 2:50p m Kidney disease September 28, 2024 2:50p m Obesity affecting September 28 2:50pm September 28, 2024 2:50p m Supervision of normal first Ju ne 2024 2:50pm Recurrent UTI September 28, 2024 2:50p m Anxiety October 27, 2024 1:38p m Congenital fffrob-cpdlqfq-jspiw reflux J gary 2024 1:38pm Current every day nicotine vaping October 272024 1:38pm Elevated serum creatinine October 27, 2024 1:38pm FH: hemophilia October 27, 2024 1:38p m Kidney disease October 27, 2024 1:38p m Obesity affecting October 27 1:38pm October 27, 2024 1:38p m Supervision of normal first Ju ly 2024 1:38pm Recurrent UTI October 27, 2024 1:38p m Anxiety November 09, 2024 3:21 pm Congenital tsflln-jbxroxn-wjjsl reflux J gary 2024 3:21pm Current every day nicotine vaping October 272024 3:21pm Elevated serum creatinine November 09 3:21pm FH: hemophilia November 09, 2024 3:21 pm Kidney disease November 09, 2024 3:21 pm Obesity affecting November 09, 2 025 3:21pm November 09, 2024 3:21 pm Supervision of normal first Ju ly 2024 3:21pm Anxiety November 19, 2024 8:30 am Congenital cwyoio-kfduwhb-prahe reflux J gary 2024 8:30am Current every day nicotine vaping October 282024 8:30am Elevated serum creatinine November 19 8:30am FH: hemophilia November 19, 2024 8:30 am Kidney disease November 19, 2024 8:30 am Obesity affecting November 19, 2 025 8:30am November 19, 2024 8:30 am Supervision of normal first Ju ly 2024 8:30am Anxiety November 27, 2024 2:1 8pm Congenital fiydof-smckkep-hwssd reflux A ugust 2024 2:18pm Current every day nicotine vaping November 27, 2024 2:18pm Elevated serum creatinine November 27 2:18pm FH: hemophilia November 27, 2024 2:1 8pm Kidney disease November 27, 2024 2:1 8pm Obesity affecting November 27, 2024 2:18pm November 27, 2024 2:1 8pm Supervision of normal first Au fatoumata 2024 2:18pm Chief Complaint Admit Date ANATOMY SCAN August 19, 2024 3:1 5pm 22 wk ob September 01, 2024 2:50pm congestion, cough, sore throat September 28, 2024 7:26am 26wk ob September 28, 2024 2:50p m 30wk ob October 27, 2024 1:38p m 32wk ob November 09, 2024 3:21 pm UA November 19, 2024 8:30 am 34wk ob November 27, 2024 2:1 8pm 36wk ob December 08, 2024 9: 33am Reason for Visit Admit Date Anxiety September 01, 2024 2:50pm Congenital yvhkun-jbiwqhn-bpdsw reflux M ay 2024 2:50pm Current every day nicotine vaping August 2:50pm Elevated serum creatinine September 01, 2024 2:50pm FH: hemophilia September 01, 2024 2:50pm Obesity affecting September 01 2:50pm September 01, 2024 2:50pm Supervision of normal first Ma y 2024 2:50pm Anxiety September 28, 2024 2:50p m Congenital ppmaeh-yeejfso-tgtnz reflux J une 2024 2:50pm Current every day nicotine vaping September 282024 2:50pm Elevated serum creatinine September 28, 2024 2:50pm FH: hemophilia September 28, 2024 2:50p m Kidney disease September 28, 2024 2:50p m Obesity affecting September 28 2:50pm September 28, 2024 2:50p m Supervision of normal first Ju ne 2024 2:50pm Recurrent UTI September 28, 2024 2:50p m Anxiety October 27, 2024 1:38p m Congenital cxfgth-zepmtqn-phnbc reflux J gary 2024 1:38pm Current every day nicotine vaping October 272024 1:38pm Elevated serum creatinine October 27, 2024 1:38pm FH: hemophilia October 27, 2024 1:38p m Kidney disease October 27, 2024 1:38p m Obesity affecting October 27 1:38pm October 27, 2024 1:38p m Supervision of normal first Ju ly 2024 1:38pm Recurrent UTI October 27, 2024 1:38p m Anxiety November 09, 2024 3:21 pm Congenital bseule-mhqjfsj-klsoe reflux J gary 2024 3:21pm Current every day nicotine vaping October 272024 3:21pm Elevated serum creatinine November 09 3:21pm FH: hemophilia November 09, 2024 3:21 pm Kidney disease November 09, 2024 3:21 pm Obesity affecting November 09, 2 025 3:21pm November 09, 2024 3:21 pm Supervision of normal first Ju ly 2024 3:21pm Anxiety November 19, 2024 8:30 am Congenital klttuz-sbjiomq-miwsr reflux J gary 2024 8:30am Current every day nicotine vaping October 282024 8:30am Elevated serum creatinine November 19 8:30am FH: hemophilia November 19, 2024 8:30 am Kidney disease November 19, 2024 8:30 am Obesity affecting November 19, 2 025 8:30am November 19, 2024 8:30 am Supervision of normal first Ju ly 2024 8:30am Anxiety November 27, 2024 2:1 8pm Congenital bqkikr-mzafkih-rroqs reflux A ugust 2024 2:18pm Current every day nicotine vaping November 27, 2024 2:18pm Elevated serum creatinine November 27 2:18pm FH: hemophilia November 27, 2024 2:1 8pm Kidney disease November 27, 2024 2:1 8pm Obesity affecting November 27, 2024 2:18pm November 27, 2024 2:1 8pm Supervision of normal first Au fatoumata 2024 2:18pm Anxiety December 08, 2024 9: 33am Congenital vcgyxx-eariabc-dpozx reflux A ugust 2024 9:33am Current every day nicotine vaping December 08, 2024 9:33am Elevated serum creatinine December 08, 025 9:33am FH: hemophilia December 08, 2024 9: 33am Kidney disease December 08, 2024 9: 33am Obesity affecting December 08, 2024 9:33am December 08, 2024 9: 33am Supervision of normal first Au fatoumata 2024 9:33am Chief Complaint Admit Date ANATOMY SCAN August 19, 2024 3:1 5pm 22 wk ob September 01, 2024 2:50pm congestion, cough, sore throat September 28, 2024 7:26am 26wk ob September 28, 2024 2:50p m 30wk ob October 27, 2024 1:38p m 32wk ob November 09, 2024 3:21 pm UA November 19, 2024 8:30 am 34wk ob November 27, 2024 2:1 8pm 36wk ob December 08, 2024 9: 33am 37 wk ob December 17, 2024 3: 44pm Reason for Visit Admit Date Anxiety September 01, 2024 2:50pm Congenital uhdkfa-fliwueu-iaorv reflux M ay 2024 2:50pm Current every day nicotine vaping August 2:50pm Elevated serum creatinine September 01, 2024 2:50pm FH: hemophilia September 01, 2024 2:50pm Obesity affecting September 01 2:50pm September 01, 2024 2:50pm Supervision of normal first Ma y 2024 2:50pm Anxiety September 28, 2024 2:50p m Congenital ujlipw-gudsxkg-hbmgl reflux J une 2024 2:50pm Current every day nicotine vaping September 282024 2:50pm Elevated serum creatinine September 28, 2024 2:50pm FH: hemophilia September 28, 2024 2:50p m Kidney disease September 28, 2024 2:50p m Obesity affecting September 28 2:50pm September 28, 2024 2:50p m Supervision of normal first Ju ne 2024 2:50pm Recurrent UTI September 28, 2024 2:50p m Anxiety October 27, 2024 1:38p m Congenital cuhioh-cdkmhes-blglt reflux J gary 2024 1:38pm Current every day nicotine vaping October 272024 1:38pm Elevated serum creatinine October 27, 2024 1:38pm FH: hemophilia October 27, 2024 1:38p m Kidney disease October 27, 2024 1:38p m Obesity affecting October 27 1:38pm October 27, 2024 1:38p m Supervision of normal first Ju ly 2024 1:38pm Recurrent UTI October 27, 2024 1:38p m Anxiety November 09, 2024 3:21 pm Congenital gbqgvm-oggizvj-srfez reflux J gary 2024 3:21pm Current every day nicotine vaping October 272024 3:21pm Elevated serum creatinine November 09 3:21pm FH: hemophilia November 09, 2024 3:21 pm Kidney disease November 09, 2024 3:21 pm Obesity affecting November 09, 2 025 3:21pm November 09, 2024 3:21 pm Supervision of normal first Ju ly 2024 3:21pm Anxiety November 19, 2024 8:30 am Congenital yeisfw-ihnxmkr-kmzbu reflux J gary 2024 8:30am Current every day nicotine vaping October 282024 8:30am Elevated serum creatinine November 19 8:30am FH: hemophilia November 19, 2024 8:30 am Kidney disease November 19, 2024 8:30 am Obesity affecting November 19, 2 025 8:30am November 19, 2024 8:30 am Supervision of normal first Ju ly 2024 8:30am Anxiety November 27, 2024 2:1 8pm Congenital sratrf-jkagivo-yejjh reflux A ugust 2024 2:18pm Current every day nicotine vaping November 27, 2024 2:18pm Elevated serum creatinine November 27 2:18pm FH: hemophilia November 27, 2024 2:1 8pm Kidney disease November 27, 2024 2:1 8pm Obesity affecting November 27, 2024 2:18pm November 27, 2024 2:1 8pm Supervision of normal first [facility] 2024 2:18pm Anxiety December 08, 2024 9: 33am Congenital lafqny-kycqyej-vypxn reflux A ugust 2024 9:33am Current every day nicotine vaping December 08, 2024 9:33am Elevated serum creatinine December 08, 2 025 9:33am FH: hemophilia December 08, 2024 9: 33am Kidney disease December 08, 2024 9: 33am Obesity affecting December 08, 2024 9:33am December 08, 2024 9: 33am Supervision of normal first [facility] 2024 9:33am Anxiety December 17, 2024 3: 44pm Congenital vmxtao-czgtunu-zajit reflux A ugust 2024 3:44pm Current every day nicotine vaping December 17, 2024 3:44pm Elevated serum creatinine December 17, 2 025 3:44pm FH: hemophilia December 17, 2024 3: 44pm Kidney disease December 17, 2024 3: 44pm Obesity affecting December 17, 2024 3:44pm December 17, 2024 3: 44pm Supervision of normal first [facility] 2024 3:44pm Chief Complaint Admit Date 22 wk ob September 01, 2024 2:50pm congestion, cough, sore throat September 28, 2024 7:26am 26wk ob September 28, 2024 2:50p m 30wk ob October 27, 2024 1:38p m 32wk ob November 09, 2024 3:21 pm UA November 19, 2024 8:30 am 34wk ob November 27, 2024 2:1 8pm 36wk ob December 08, 2024 9: 33am 37 wk ob December 17, 2024 3: 44pm 38 wk ob December 22, 2024 12 :54pm Reason for Visit Admit Date Anxiety September 01, 2024 2:50pm Congenital dzegnb-emgfwwh-jgoxe reflux M ay 2024 2:50pm Current every day nicotine vaping August 2:50pm Elevated serum creatinine September 01, 2024 2:50pm FH: hemophilia September 01, 2024 2:50pm Obesity affecting September 01 2:50pm September 01, 2024 2:50pm Supervision of normal first Ma y 2024 2:50pm Anxiety September 28, 2024 2:50p m Congenital uylosv-jujrufn-yojnh reflux J une 2024 2:50pm Current every day nicotine vaping September 282024 2:50pm Elevated serum creatinine September 28, 2024 2:50pm FH: hemophilia September 28, 2024 2:50p m Kidney disease September 28, 2024 2:50p m Obesity affecting September 28 2:50pm September 28, 2024 2:50p m Supervision of normal first Ju ne 2024 2:50pm Recurrent UTI September 28, 2024 2:50p m Anxiety October 27, 2024 1:38p m Congenital yvbsny-ghhgvms-gburl reflux J gary 2024 1:38pm Current every day nicotine vaping October 272024 1:38pm Elevated serum creatinine October 27, 2024 1:38pm FH: hemophilia October 27, 2024 1:38p m Kidney disease October 27, 2024 1:38p m Obesity affecting October 27 1:38pm October 27, 2024 1:38p m Supervision of normal first Ju ly 2024 1:38pm Recurrent UTI October 27, 2024 1:38p m Anxiety November 09, 2024 3:21 pm Congenital vhyhdv-cgbxglx-rpdpa reflux J gary 2024 3:21pm Current every day nicotine vaping October 272024 3:21pm Elevated serum creatinine November 09 3:21pm FH: hemophilia November 09, 2024 3:21 pm Kidney disease November 09, 2024 3:21 pm Obesity affecting November 09, 2 025 3:21pm November 09, 2024 3:21 pm Supervision of normal first Ju ly 2024 3:21pm Anxiety November 19, 2024 8:30 am Congenital fwvsrh-bvznkre-wzkwj reflux J gary 2024 8:30am Current every day nicotine vaping October 282024 8:30am Elevated serum creatinine November 19 8:30am FH: hemophilia November 19, 2024 8:30 am Kidney disease November 19, 2024 8:30 am Obesity affecting November 19, 2 025 8:30am November 19, 2024 8:30 am Supervision of normal first Ju ly 2024 8:30am Anxiety November 27, 2024 2:1 8pm Congenital tnkhex-eedjlrf-riuzh reflux A ugust 2024 2:18pm Current every day nicotine vaping November 27, 2024 2:18pm Elevated serum creatinine November 27 2:18pm FH: hemophilia November 27, 2024 2:1 8pm Kidney disease November 27, 2024 2:1 8pm Obesity affecting November 27, 2024 2:18pm November 27, 2024 2:1 8pm Supervision of normal first [facility] 2024 2:18pm Anxiety December 08, 2024 9: 33am Congenital teeugz-rbfstdu-xjkal reflux A ugust 2024 9:33am Current every day nicotine vaping December 08, 2024 9:33am Elevated serum creatinine December 08, 2 025 9:33am FH: hemophilia December 08, 2024 9: 33am Kidney disease December 08, 2024 9: 33am Obesity affecting December 08, 2024 9:33am December 08, 2024 9: 33am Supervision of normal first [facility] 2024 9:33am Anxiety December 17, 2024 3: 44pm Congenital xhybgr-milltse-dksvo reflux A ugust 2024 3:44pm Current every day nicotine vaping December 17, 2024 3:44pm Elevated serum creatinine December 17, 2 025 3:44pm FH: hemophilia December 17, 2024 3: 44pm Kidney disease December 17, 2024 3: 44pm Obesity affecting December 17, 2024 3:44pm December 17, 2024 3: 44pm Supervision of normal first [facility] 2024 3:44pm Anxiety December 22, 2024 12 :54pm Congenital abvnkl-xzbklwq-eyqja reflux A ugust 2024 12:54pm Current every day nicotine vaping December 22, 2024 12:54pm Elevated serum creatinine December 22, 2 025 12:54pm FH: hemophilia December 22, 2024 12 :54pm Kidney disease December 22, 2024 12 :54pm Obesity affecting December 22, 2024 12:54pm December 22, 2024 12 :54pm Supervision of normal first Au fatoumata 2024 12:54pm Chief Complaint Admit Date 22 wk ob September 01, 2024 2:50pm congestion, cough, sore throat September 28, 2024 7:26am 26wk ob September 28, 2024 2:50p m 30wk ob October 27, 2024 1:38p m 32wk ob November 09, 2024 3:21 pm UA November 19, 2024 8:30 am 34wk ob November 27, 2024 2:1 8pm 36wk ob December 08, 2024 9: 33am 37 wk ob December 17, 2024 3: 44pm 38 wk ob December 22, 2024 12 :54pm 39 wk ob December 30, 2024 2:50pm Reason for Visit Admit Date Anxiety September 01, 2024 2:50pm Congenital lslicb-rtsphvg-anzws reflux M ay 2024 2:50pm Current every day nicotine vaping August 2:50pm Elevated serum creatinine September 01, 2024 2:50pm FH: hemophilia September 01, 2024 2:50pm Obesity affecting September 01 2:50pm September 01, 2024 2:50pm Supervision of normal first Ma y 2024 2:50pm Anxiety September 28, 2024 2:50p m Congenital jzpjmt-nbbcsdx-witpv reflux J une 2024 2:50pm Current every day nicotine vaping September 282024 2:50pm Elevated serum creatinine September 28, 2024 2:50pm FH: hemophilia September 28, 2024 2:50p m Kidney disease September 28, 2024 2:50p m Obesity affecting September 28 2:50pm September 28, 2024 2:50p m Supervision of normal first Ju ne 2024 2:50pm Recurrent UTI September 28, 2024 2:50p m Anxiety October 27, 2024 1:38p m Congenital ehnqkz-dpvmikv-nktvh reflux J gary 2024 1:38pm Current every day nicotine vaping October 272024 1:38pm Elevated serum creatinine October 27, 2024 1:38pm FH: hemophilia October 27, 2024 1:38p m Kidney disease October 27, 2024 1:38p m Obesity affecting October 27 1:38pm October 27, 2024 1:38p m Supervision of normal first Ju ly 2024 1:38pm Recurrent UTI October 27, 2024 1:38p m Anxiety November 09, 2024 3:21 pm Congenital hygzpd-qgampyr-phnfy reflux J gary 2024 3:21pm Current every day nicotine vaping October 272024 3:21pm Elevated serum creatinine November 09 3:21pm FH: hemophilia November 09, 2024 3:21 pm Kidney disease November 09, 2024 3:21 pm Obesity affecting November 09, 2 025 3:21pm November 09, 2024 3:21 pm Supervision of normal first Ju ly 2024 3:21pm Anxiety November 19, 2024 8:30 am Congenital srblln-mfegisz-hridm reflux J gary 2024 8:30am Current every day nicotine vaping October 282024 8:30am Elevated serum creatinine November 19 8:30am FH: hemophilia November 19, 2024 8:30 am Kidney disease November 19, 2024 8:30 am Obesity affecting November 19, 2 025 8:30am November 19, 2024 8:30 am Supervision of normal first Ju ly 2024 8:30am Anxiety November 27, 2024 2:1 8pm Congenital jgfyve-rermgjx-npxoc reflux A ugust 2024 2:18pm Current every day nicotine vaping November 27, 2024 2:18pm Elevated serum creatinine November 27 2:18pm FH: hemophilia November 27, 2024 2:1 8pm Kidney disease November 27, 2024 2:1 8pm Obesity affecting November 27, 2024 2:18pm November 27, 2024 2:1 8pm Supervision of normal first [facility] fatoumata 2024 2:18pm Anxiety December 08, 2024 9: 33am Congenital xkktjo-fznlefx-epack reflux A ug2024 9:33am Current every day nicotine vaping December 08, 2024 9:33am Elevated serum creatinine December 08, 2 025 9:33am FH: hemophilia December 08, 2024 9: 33am Kidney disease December 08, 2024 9: 33am Obesity affecting December 08, 2024 9:33am December 08, 2024 9: 33am Supervision of normal first Au fatoumata 2024 9:33am Anxiety December 17, 2024 3: 44pm Congenital petslv-nqktxtl-yduun reflux A ug2024 3:44pm Current every day nicotine vaping December 17, 2024 3:44pm Elevated serum creatinine December 17, 2 025 3:44pm FH: hemophilia December 17, 2024 3: 44pm Kidney disease December 17, 2024 3: 44pm Obesity affecting December 17, 2024 3:44pm December 17, 2024 3: 44pm Supervision of normal first [facility] fatoumata 2024 3:44pm Anxiety December 22, 2024 12 :54pm Congenital wnbned-rftknjx-lgqde reflux A ugust 2024 12:54pm Current every day nicotine vaping December 22, 2024 12:54pm Elevated serum creatinine December 22, 2 025 12:54pm FH: hemophilia December 22, 2024 12 :54pm Kidney disease December 22, 2024 12 :54pm Obesity affecting December 22, 2024 12:54pm December 22, 2024 12 :54pm Supervision of normal first [facility] ham 2024 12:54pm Anxiety December 30, 2024 2:50pm Congenital pktrcx-nndxgyj-cbzdl reflux S eptember 2024 2:50pm Current every day nicotine vaping Sept2024 2:50pm Elevated serum creatinine December 30, 2024 2:50pm FH: hemophilia December 30, 2024 2:50pm Kidney disease December 30, 2024 2:50pm Obesity affecting December 2:50pm December 30, 2024 2:50pm Supervision of normal first Se ptember 2024 2:50pm Chief Complaint Admit Date congestion, cough, sore throat September 28, 2024 7:26am 26wk ob September 28, 2024 2:50p m 30wk ob October 27, 2024 1:38p m 32wk ob November 09, 2024 3:21 pm UA November 19, 2024 8:30 am 34wk ob November 27, 2024 2:1 8pm 36wk ob December 08, 2024 9: 33am 37 wk ob December 17, 2024 3: 44pm 38 wk ob December 22, 2024 12 :54pm 39 wk ob December 30, 2024 2:50pm 40 wk ob *Happy Due Date* January 04, 2025 3:05pm Reason for Visit Admit Date Anxiety September 28, 2024 2:50p m Congenital bkpkmq-yqrzmde-whqzd reflux J une 2024 2:50pm Current every day nicotine vaping September 282024 2:50pm Elevated serum creatinine September 28, 2024 2:50pm FH: hemophilia September 28, 2024 2:50p m Kidney disease September 28, 2024 2:50p m Obesity affecting September 28 2:50pm September 28, 2024 2:50p m Supervision of normal first Ju ne 2024 2:50pm Recurrent UTI September 28, 2024 2:50p m Anxiety October 27, 2024 1:38p m Congenital nthjht-wafzbhy-wvcvz reflux J gary 2024 1:38pm Current every day nicotine vaping October 272024 1:38pm Elevated serum creatinine October 27, 2024 1:38pm FH: hemophilia October 27, 2024 1:38p m Kidney disease October 27, 2024 1:38p m Obesity affecting October 27 1:38pm October 27, 2024 1:38p m Supervision of normal first Ju ly 2024 1:38pm Recurrent UTI October 27, 2024 1:38p m Anxiety November 09, 2024 3:21 pm Congenital iyxhzq-jvpsktu-pennq reflux J gary 2024 3:21pm Current every day nicotine vaping October 272024 3:21pm Elevated serum creatinine November 09 3:21pm FH: hemophilia November 09, 2024 3:21 pm Kidney disease November 09, 2024 3:21 pm Obesity affecting November 09, 2 025 3:21pm November 09, 2024 3:21 pm Supervision of normal first Ju ly 2024 3:21pm Anxiety November 19, 2024 8:30 am Congenital xiypoh-holfczc-cvikl reflux J gary 2024 8:30am Current every day nicotine vaping October 282024 8:30am Elevated serum creatinine November 19 8:30am FH: hemophilia November 19, 2024 8:30 am Kidney disease November 19, 2024 8:30 am Obesity affecting November 19, 2 025 8:30am November 19, 2024 8:30 am Supervision of normal first [facility] 2024 8:30am Anxiety November 27, 2024 2:1 8pm Congenital zectrg-pjzuizs-rlxfq reflux A 2024 2:18pm Current every day nicotine vaping November 27, 2024 2:18pm Elevated serum creatinine November 27 2:18pm FH: hemophilia November 27, 2024 2:1 8pm Kidney disease November 27, 2024 2:1 8pm Obesity affecting November 27, 2024 2:18pm November 27, 2024 2:1 8pm Supervision of normal first [facility] 2024 2:18pm Anxiety December 08, 2024 9: 33am Congenital mecjle-gfwiekk-ennpp reflux A ugust 2024 9:33am Current every day nicotine vaping December 08, 2024 9:33am Elevated serum creatinine December 08, 2 025 9:33am FH: hemophilia December 08, 2024 9: 33am Kidney disease December 08, 2024 9: 33am Obesity affecting December 08, 2024 9:33am December 08, 2024 9: 33am Supervision of normal first Au [facility] 2024 9:33am Anxiety December 17, 2024 3: 44pm Congenital xjibsf-hazkbcn-unskn reflux A ugust 2024 3:44pm Current every day nicotine vaping December 17, 2024 3:44pm Elevated serum creatinine December 17, 2 025 3:44pm FH: hemophilia December 17, 2024 3: 44pm Kidney disease December 17, 2024 3: 44pm Obesity affecting December 17, 2024 3:44pm December 17, 2024 3: 44pm Supervision of normal first Au fatoumata 2024 3:44pm Anxiety December 22, 2024 12 :54pm Congenital gvdnpx-kswqmcj-cecqh reflux A ugust 2024 12:54pm Current every day nicotine vaping December 22, 2024 12:54pm Elevated serum creatinine December 22, 2 025 12:54pm FH: hemophilia December 22, 2024 12 :54pm Kidney disease December 22, 2024 12 :54pm Obesity affecting December 22, 2024 12:54pm December 22, 2024 12 :54pm Supervision of normal first Au fatoumata 2024 12:54pm Anxiety December 30, 2024 2:50pm Congenital frnspp-ttlmvjo-xqjiw reflux S eptemb2024 2:50pm Current every day nicotine vaping 2024 2:50pm Elevated serum creatinine December 30, 2024 2:50pm FH: hemophilia December 30, 2024 2:50pm Kidney disease December 30, 2024 2:50pm Obesity affecting December 2:50pm December 30, 2024 2:50pm Supervision of normal first Se pt2024 2:50pm Anxiety January 04, 2025 3:05pm Congenital pzlzxc-xraegup-hhrbw reflux S eptemb2024 3:05pm Current every day nicotine vaping Decem 2024 3:05pm Elevated serum creatinine January 04, 2025 3:05pm FH: hemophilia January 04, 2025 3:05pm Kidney disease January 04, 2025 3:05pm Obesity affecting December 3:05pm January 04, 2025 3:05pm Supervision of normal first Se pt2024 3:05pm Additional Source Comments INFORMATION SOURCE (unrecogn ized section and content) DATE CREATED AUTHOR 11/06/2017 [facility] DATE CREATED AUTHOR AUTHOR'S ORGANIZ ATION 11/20/2017 [facility] DATE CREATED AUTHOR AUTHOR'S ORGANIZ ATION 11/27/2017 [facility] DATE CREATED AUTHOR AUTHOR'S ORGANIZ ATION 12/20/2017 [facility] DATE CREATED AUTHOR AUTHOR'S ORGANIZ ATION 05/13/2019 [facility] DATE CREATED AUTHOR AUTHOR'S ORGANIZ ATION 01/06/2025 [facility] Care Teams (unrecognized sec tion and content) [...] 2024 End: August 04, 2024 Jennifer Willard PATHOLOGY SECRETARY, PATHOLOGY SECRETARY-C Attending Provider Active Start: August 04, 2024 End: August 04, 2024 Team Status: Inactive Member Role Status Dates Dr. Donald Waller MD Primary Care Provider Active Start: August 04, 2024 End: August 04, 2024 Jennifer Willard PATHOLOGY SECRETARY, PATHOLOGY SECRETARY-C Attending Provider Active Start: August 04, 2024 End: August 04, 2024 Jennifer Willard PATHOLOGY SECRETARY, PATHOLOGY SECRETARY-C Referring Provider Active Start: August 04, 2024 [...] 2024 End: September 28, 2024 Jennifer Willard PATHOLOGY SECRETARY, PATHOLOGY SECRETARY-C Attending Provider Active Start: September 28, 2024 [...] 2024 End: August 04, 2024 Jennifer Willard PATHOLOGY SECRETARY, PATHOLOGY SECRETARY-C Attending Provider Active Start: August 04, 2024 End: August 04, 2024 Team Status: Inactive Member Role/Relationship Status Dates Dr. Donald Waller MD Primary Care Provider Active Start: August 04, 2024 End: August 04, 2024 Jennifer Willard PATHOLOGY SECRETARY, PATHOLOGY SECRETARY-C Attending Provider Active Start: August 04, 2024 End: August 04, 2024 Jennifer Willard PATHOLOGY SECRETARY, PATHOLOGY SECRETARY-C Referring Provider Active Start: August 04, 2024 [...] 2024 End: September 28, 2024 Jennifer Willard PATHOLOGY SECRETARY, PATHOLOGY SECRETARY-C Attending Provider Active Start: September 28, 2024 [...] 2024 End: October 27, 2024 Jennifer Willard PATHOLOGY SECRETARY, PATHOLOGY SECRETARY-C Attending Provider Active Start: October 27, 2024 End: October 27, 2024 Team Status: Active Member Role/Relationship Status Dates Dr. Donald Waller MD Primary Care Provider Active Start: October 27, 2024 Jennifer Willard PATHOLOGY SECRETARY, PATHOLOGY SECRETARY-C Attending Provider Active Start: October 27, 2024 Jennifer Willard PATHOLOGY SECRETARY, PATHOLOGY SECRETARY-C Referring Provider Active Start: October 27, 2024 Team Status: Inactive Member Role/Relationship Status Dates Dr. Donald Waller MD Primary Care Provider Active Start: October 27, 2024 End: October 27, 2024 Jennifer Willard PATHOLOGY SECRETARY, PATHOLOGY SECRETARY-C Attending Provider Active Start: October 27, 2024 End: October 27, 2024 Jennifer Willard PATHOLOGY SECRETARY, PATHOLOGY SECRETARY-C Referring Provider Active Start: October 27, 2024 End: October 27, 2024 Team Status: Inactive Member Role/Relationship Status Dates Dr. Donald Waller MD Primary Care Provider Active Start: August 04, 2024 End: August 04, 2024 Dr. Donald Waller MD Referring Provider Active Start: August 04, 2024 End: August 04, 2024 Jennifer Willard PATHOLOGY SECRETARY, PATHOLOGY SECRETARY-C Attending Provider Active Start: August 04, 2024 End: August 04, 2024 Team Status: Inactive Member Role/Relationship Status Dates Dr. Donald Waller MD Primary Care Provider Active Start: August 04, 2024 End: August 04, 2024 Jennifer Willard PATHOLOGY SECRETARY, PATHOLOGY SECRETARY-C Attending Provider Active Start: August 04, 2024 End: August 04, 2024 Jennifer Willard PATHOLOGY SECRETARY, PATHOLOGY SECRETARY-C Referring Provider Active Start: August 04, 2024 [...] 2024 End: September 28, 2024 Jennifer Willard PATHOLOGY SECRETARY, PATHOLOGY SECRETARY-C Attending Provider Active Start: September 28, 2024 [...] 2024 End: October 27, 2024 Jennifer Willard PATHOLOGY SECRETARY, PATHOLOGY SECRETARY-C Attending Provider Active Start: October 27, 2024 End: October 27, 2024 Team Status: Inactive Member Role/Relationship Status Dates Dr. Donald Waller MD Primary Care Provider Active Start: October 27, 2024 End: October 27, 2024 Jennifer Willard PATHOLOGY SECRETARY, PATHOLOGY SECRETARY-C Attending Provider Active Start: October 27, 2024 End: October 27, 2024 Jennifer Willard PATHOLOGY SECRETARY, PATHOLOGY SECRETARY-C Referring Provider Active Start: October 27, 2024 End: October 27, 2024 Team Status: Inactive Member Role/Relationship Status Dates Dr. Donald Waller MD Primary Care Provider Active Start: November 09, 2024 End: November 09, 2024 Dr. Donald Waller MD Referring Provider Active Start: November 09, 2024 End: November 09, 2024 Dr. Nita Mcintosh MD Attending Provider Active Start: November 09, 2024 End: November 09, 2024 Team Status: Inactive Member Role/Relationship Status Dates Dr. Donald Waller MD Primary Care Provider Active Start: October 27, 2024 Dr. Jaida Mcpherson MD Attending Provider Active Start: October 27, 2024 Team Status: Inactive Member Role/Relationship Status Dates Dr. Donald Waller MD Primary Care Provider Active Start: October 27, 2024 End: October 27, 2024 Dr. Donald Waller MD Referring Provider Active Start: October 27, 2024 End: October 27, 2024 Jennifer Willard PATHOLOGY SECRETARY, PATHOLOGY SECRETARY-C Attending Provider Active Start: October 27, 2024 End: October 27, 2024 Team Status: Inactive Member Role/Relationship Status Dates Dr. Donald Waller MD Primary Care Provider Active Start: October 27, 2024 End: October 27, 2024 Jennifer Willard PATHOLOGY SECRETARY, PATHOLOGY SECRETARY-C Attending Provider Active Start: October 27, 2024 End: October 27, 2024 Jennifer Willard PATHOLOGY SECRETARY, PATHOLOGY SECRETARY-C Referring Provider Active Start: October 27, 2024 End: October 27, 2024 Team Status: Inactive Member Role/Relationship Status Dates Dr. Donald Waller MD Primary Care Provider Active Start: November 09, 2024 End: November 09, 2024 Dr. Donald Waller MD Referring Provider Active Start: November 09, 2024 End: November 09, 2024 Dr. Nita Mcintosh MD Attending Provider Active Start: November 09, 2024 End: November 09, 2024 Team Status: Inactive Member Role/Relationship Status Dates Dr. Donald Waller MD Primary Care Provider Active Start: November 19, 2024 End: November 19, 2024 Dr. Donald Waller MD Referring Provider Active Start: November 19, 2024 End: November 19, 2024 Dr. Nita Mcintosh MD Attending Provider Active Start: November 19, 2024 End: November 19, 2024 Team Status: Active Member Role/Relationship Status Dates Dr. Donald Waller MD Primary Care Provider Active Start: November 19, 2024 Dr. Nita Mcintosh MD Attending Provider Active Start: November 19, 2024 Dr. Nita Mcintosh MD Referring Provider Active Start: November 19, 2024 Team Status: Inactive Member Role/Relationship Status Dates Dr. Donald Waller MD Primary Care Provider Active Start: November 19, 2024 End: November 19, 2024 Dr. Nita Mcintosh MD Attending Provider Active Start: November 19, 2024 End: November 19, 2024 Dr. Nita Mcintosh MD Referring Provider Active Start: November 19, 2024 End: November 19, 2024 Team Status: Inactive Member Role/Relationship Status Dates Dr. Donald Waller MD Primary Care Provider Active Start: November 27, 2024 End: November 27, 2024 Dr. Donald Waller MD Referring Provider Active Start: November 27, 2024 End: November 27, 2024 Dr. Nita Mcintosh MD Attending Provider Active Start: November 27, 2024 End: November 27, 2024 Team Status: Inactive Member Role/Relationship Status [...] End: September 28, 2024 Jennifer Willard NP, PATHOLOGY SECRETARY-C Attending Provider Active Start: September 28, 2024 [...] Care Provider Active Start: October 27, 2024 Dr. Jaida Mcpherson MD Attending Provider Active Start: October 27, 2024 Team Status: Inactive Member Role/Relationship Status Dates Dr. Donald Waller MD Primary Care Provider Active Start: October 27, 2024 End: October 27, 2024 Dr. Donald Waller MD Referring Provider Active Start: October 27, 2024 End: October 27, 2024 Jennifer Willard PATHOLOGY SECRETARY, PATHOLOGY SECRETARY-C Attending Provider Active Start: October 27, 2024 End: October 27, 2024 Team Status: Inactive Member Role/Relationship Status Dates Dr. Donald Waller MD Primary Care Provider Active Start: October 27, 2024 End: October 27, 2024 Jennifer Willard PATHOLOGY SECRETARY, PATHOLOGY SECRETARY-C Attending Provider Active Start: October 27, 2024 End: October 27, 2024 Jennifer Willard PATHOLOGY SECRETARY, PATHOLOGY SECRETARY-C Referring Provider Active Start: October 27, 2024 End: October 27, 2024 Team Status: Inactive Member Role/Relationship Status Dates Dr. Donald Waller MD Primary Care Provider Active Start: November 09, 2024 End: November 09, 2024 Dr. Donald Waller MD Referring Provider Active Start: November 09, 2024 End: November 09, 2024 Dr. Nita Mcintosh MD Attending Provider Active Start: November 09, 2024 End: November 09, 2024 Team Status: Inactive Member Role/Relationship Status Dates Dr. Donald Waller MD Primary Care Provider Active Start: November 19, 2024 End: November 19, 2024 Dr. Donald Waller MD Referring Provider Active Start: November 19, 2024 End: November 19, 2024 Dr. Nita Mcintosh MD Attending Provider Active Start: November 19, 2024 End: November 19, 2024 Team Status: Inactive Member Role/Relationship Status Dates Dr. Donald Waller MD Primary Care Provider Active Start: November 19, 2024 End: November 19, 2024 Dr. Nita Mcintosh MD Attending Provider Active Start: November 19, 2024 End: November 19, 2024 Dr. Nita Mcintosh MD Referring Provider Active Start: November 19, 2024 End: November 19, 2024 Team Status: Inactive Member Role/Relationship Status Dates Dr. Donald Waller MD Primary Care Provider Active Start: November 27, 2024 End: November 27, 2024 Dr. Donald Waller MD Referring Provider Active Start: November 27, 2024 End: November 27, 2024 Dr. Nita Mcintosh MD Attending Provider Active Start: November 27, 2024 End: November 27, 2024 Team Status: Inactive Member Role/Relationship Status Dates Dr. Donald Waller MD Primary Care Provider Active Start: December 08, 2024 End: December 08, 2024 Dr. Donald Waller MD Referring Provider Active Start: December 08, 2024 End: December 08, 2024 Susie Solomon CNM Attending Provider Active S tart: December 08, 2024 End: December 08, 2024 Team Status: Inactive Member Role/Relationship Status Dates Dr. Donald Waller MD Primary Care Provider Active Start: December 17, 2024 End: December 17, 2024 Dr. Donald Waller MD Referring Provider Active Start: December 17, 2024 End: December 17, 2024 Dr. Nita Mcintosh MD Attending Provider Active Start: December 17, 2024 End: December 17, 2024 Team Status: Active Member Role/Relationship Status Dates Dr. Donald Waller MD Primary Care Provider Active Start: December 17, 2024 Dr. Nita Mcintosh MD Attending Provider Active Start: December 17, 2024 Dr. Nita Mcintosh MD Referring Provider Active Start: December 17, 2024 Team Status: Inactive Member Role/Relationship Status [...] 2024 End: September 28, 2024 Jennifer Willard PATHOLOGY SECRETARY, PATHOLOGY SECRETARY-C Attending Provider Active Start: September 28, 2024 [...] Care Provider Active Start: October 27, 2024 Dr. Jaida Mcpherson MD Attending Provider Active Start: October 27, 2024 Team Status: Inactive Member Role/Relationship Status Dates Dr. Donald Waller MD Primary Care Provider Active Start: October 27, 2024 End: October 27, 2024 Dr. Donald Waller MD Referring Provider Active Start: October 27, 2024 End: October 27, 2024 Jennifer Willard PATHOLOGY SECRETARY, PATHOLOGY SECRETARY-C Attending Provider Active Start: October 27, 2024 End: October 27, 2024 Team Status: Inactive Member Role/Relationship Status Dates Dr. Donald Waller MD Primary Care Provider Active Start: October 27, 2024 End: October 27, 2024 Jennifer Willard PATHOLOGY SECRETARY, PATHOLOGY SECRETARY-C Attending Provider Active Start: October 27, 2024 End: October 27, 2024 Jennifer Willard PATHOLOGY SECRETARY, PATHOLOGY SECRETARY-C Referring Provider Active Start: October 27, 2024 End: October 27, 2024 Team Status: Inactive Member Role/Relationship Status Dates Dr. Donald Waller MD Primary Care Provider Active Start: November 09, 2024 End: November 09, 2024 Dr. Donald Waller MD Referring Provider Active Start: November 09, 2024 End: November 09, 2024 Dr. Nita Mcintosh MD Attending Provider Active Start: November 09, 2024 End: November 09, 2024 Team Status: Inactive Member Role/Relationship Status Dates Dr. Donald Waller MD Primary Care Provider Active Start: November 19, 2024 End: November 19, 2024 Dr. Donald Waller MD Referring Provider Active Start: November 19, 2024 End: November 19, 2024 Dr. Nita Mcintosh MD Attending Provider Active Start: November 19, 2024 End: November 19, 2024 Team Status: Inactive Member Role/Relationship Status Dates Dr. Donald Waller MD Primary Care Provider Active Start: November 19, 2024 End: November 19, 2024 Dr. Nita Mcintosh MD Attending Provider Active Start: November 19, 2024 End: November 19, 2024 Dr. Nita Mcintosh MD Referring Provider Active Start: November 19, 2024 End: November 19, 2024 Team Status: Inactive Member Role/Relationship Status Dates Dr. Donald Waller MD Primary Care Provider Active Start: November 27, 2024 End: November 27, 2024 Dr. Donald Waller MD Referring Provider Active Start: November 27, 2024 End: November 27, 2024 Dr. Nita Mcintosh MD Attending Provider Active Start: November 27, 2024 End: November 27, 2024 Team Status: Inactive Member Role/Relationship Status Dates Dr. Donald Waller MD Primary Care Provider Active Start: December 08, 2024 End: December 08, 2024 Dr. Donald Waller MD Referring Provider Active Start: December 08, 2024 End: December 08, 2024 Susie Solomon CNM Attending Provider Active S tart: December 08, 2024 End: December 08, 2024 Team Status: Inactive Member Role/Relationship Status Dates Dr. Donald Waller MD Primary Care Provider Active Start: December 17, 2024 End: December 17, 2024 Dr. Donald Waller MD Referring Provider Active Start: December 17, 2024 End: December 17, 2024 Dr. Nita Mcintosh MD Attending Provider Active Start: December 17, 2024 End: December 17, 2024 Team Status: Active Member Role/Relationship Status Dates Dr. Donald Waller MD Primary Care Provider Active Start: December 17, 2024 Dr. Nita Mcintosh MD Attending Provider Active Start: December 17, 2024 Dr. Nita Mcintosh MD Referring Provider Active Start: December 17, 2024 Team Status: Inactive Member Role/Relationship Status Dates Dr. Donald Waller MD Primary Care Provider Active Start: December 22, 2024 End: December 22, 2024 Dr. Donald Waller MD Referring Provider Active Start: December 22, 2024 End: December 22, 2024 Dr. Nita Mcintosh MD Attending Provider Active Start: December 22, 2024 End: December 22, 2024 Team Status: Inactive Member Role/Relationship Status Dates Dr. Donald Waller MD Primary Care Provider Active Start: December 17, 2024 End: December 17, 2024 Dr. Nita Mcintosh MD Attending Provider Active Start: December 17, 2024 End: December 17, 2024 Dr. Nita Mcintosh MD Referring Provider Active Start: December 17, 2024 End: December 17, 2024 Team Status: Inactive Member Role/Relationship Status Dates Dr. Donald Waller MD Primary Care Provider Active Start: December 30, 2024 End: December 30, 2024 Dr. Donald Waller MD Referring Provider Active Start: December 30, 2024 End: December 30, 2024 Dr. Susan Chavez DO Attending Provider Activ e Start: December 30, 2024 End: December 30, 2024 Team Status: Inactive Member Role/Relationship Status [...] 2024 End: September 28, 2024 Jennifer Willard PATHOLOGY SECRETARY, PATHOLOGY SECRETARY-C Attending Provider Active Start: September 28, 2024 [...] Care Provider Active Start: October 27, 2024 Dr. Jaida Mcpherson MD Attending Provider Active Start: October 27, 2024 Team Status: Inactive Member Role/Relationship Status Dates Dr. Donald Waller MD Primary Care Provider Active Start: October 27, 2024 End: October 27, 2024 Dr. Donald Waller MD Referring Provider Active Start: October 27, 2024 End: October 27, 2024 Jennifer Willard PATHOLOGY SECRETARY, PATHOLOGY SECRETARY-C Attending Provider Active Start: October 27, 2024 End: October 27, 2024 Team Status: Inactive Member Role/Relationship Status Dates Dr. Donald Waller MD Primary Care Provider Active Start: October 27, 2024 End: October 27, 2024 Jennifer Willard PATHOLOGY SECRETARY, PATHOLOGY SECRETARY-C Attending Provider Active Start: October 27, 2024 End: October 27, 2024 Jennifer Willard PATHOLOGY SECRETARY, PATHOLOGY SECRETARY-C Referring Provider Active Start: October 27, 2024 End: October 27, 2024 Team Status: Inactive Member Role/Relationship Status Dates Dr. Donald Waller MD Primary Care Provider Active Start: November 09, 2024 End: November 09, 2024 Dr. Donald Waller MD Referring Provider Active Start: November 09, 2024 End: November 09, 2024 Dr. Nita Mcintosh MD Attending Provider Active Start: November 09, 2024 End: November 09, 2024 Team Status: Inactive Member Role/Relationship Status Dates Dr. Donald Waller MD Primary Care Provider Active Start: November 19, 2024 End: November 19, 2024 Dr. Donald Waller MD Referring Provider Active Start: November 19, 2024 End: November 19, 2024 Dr. Nita Mcintosh MD Attending Provider Active Start: November 19, 2024 End: November 19, 2024 Team Status: Inactive Member Role/Relationship Status Dates Dr. Donald Waller MD Primary Care Provider Active Start: November 19, 2024 End: November 19, 2024 Dr. Nita Mcintosh MD Attending Provider Active Start: November 19, 2024 End: November 19, 2024 Dr. Nita Mcintosh MD Referring Provider Active Start: November 19, 2024 End: November 19, 2024 Team Status: Inactive Member Role/Relationship Status Dates Dr. Donald Waller MD Primary Care Provider Active Start: November 27, 2024 End: November 27, 2024 Dr. Donald Waller MD Referring Provider Active Start: November 27, 2024 End: November 27, 2024 Dr. Nita Mcintosh MD Attending Provider Active Start: November 27, 2024 End: November 27, 2024 Team Status: Inactive Member Role/Relationship Status Dates Dr. Donald Waller MD Primary Care Provider Active Start: December 08, 2024 End: December 08, 2024 Dr. Donald Waller MD Referring Provider Active Start: December 08, 2024 End: December 08, 2024 Susie Solomon CNM Attending Provider Active S tart: December 08, 2024 End: December 08, 2024 Team Status: Inactive Member Role/Relationship Status Dates Dr. Donald Waller MD Primary Care Provider Active Start: December 17, 2024 End: December 17, 2024 Dr. Donald Waller MD Referring Provider Active Start: December 17, 2024 End: December 17, 2024 Dr. Nita Mcintosh MD Attending Provider Active Start: December 17, 2024 End: December 17, 2024 Team Status: Inactive Member Role/Relationship Status Dates Dr. Donald Waller MD Primary Care Provider Active Start: December 17, 2024 End: December 17, 2024 Dr. Nita Mcintosh MD Attending Provider Active Start: December 17, 2024 End: December 17, 2024 Dr. Nita Mcintosh MD Referring Provider Active Start: December 17, 2024 End: December 17, 2024 Team Status: Inactive Member Role/Relationship Status Dates Dr. Donald Waller MD Primary Care Provider Active Start: December 22, 2024 End: December 22, 2024 Dr. Donald Waller MD Referring Provider Active Start: December 22, 2024 End: December 22, 2024 Dr. Nita Mcintosh MD Attending Provider Active Start: December 22, 2024 End: December 22, 2024 Team Status: Inactive Member Role/Relationship Status Dates Dr. Donald Waller MD Primary Care Provider Active Start: December 30, 2024 End: December 30, 2024 Dr. Donald Waller MD Referring Provider Active Start: December 30, 2024 End: December 30, 2024 Dr. Susan Chavez DO Attending Provider Activ e Start: December 30, 2024 End: December 30, 2024 Team Status: Inactive Member Role/Relationship Status Dates Dr. Donald Waller MD Primary Care Provider Active Start: January 04, 2025 End: January 04, 2025 Dr. Donald Waller MD Referring Provider Active Start: January 04, 2025 End: January 04, 2025 Dr. Nita Mcintosh MD Attending Provider Active Start: January 04, 2025 End: January 04, 2025 Goals (unrecognized section and content) Goals may [...] BE BASED ON THE PRIMARY CLINICAL RECORDS. [facility] [place] [facility]. provides no warranty or guarantee of the accuracy or completeness of information in this document.
--- OUTSIDE RECORDS SUMMARY | 2025-01-06 06:56 | XMS RPT_ITS | CCD ---
Author Organization [facility] CliniSys[facility] Care Team Providers Care Barrel Planer Name Role Phone [place], [place] A Unavailable [...] Dr. Nita Mcintosh MD Referring Provider [phone] Dr. Donald Waller MD Primary Care Provider Dr. Donald Waller MD Attending Provider [phone] Dr. Donald Waller MD Referring Provider Sudheer FAN-Jennifer Martínez Attending Provider Sudheer FAN-CJennifer Referring Provider Dr. Donald Waller MD Primary Care Provider [phone] Sridhar PITTMAN, Dr. Donald Pittman Referring Provider [phone] Manolo Coburn DO, Dr. Davis Attending Provider Dinh Livingston Attending Provider Sridhar PITTMAN, Dr. Donald Pittman Primary Care Provider Sridhar PITTMAN, Dr. Donald Pittman Referring Provider Sridhar PITTMAN, Dr. Donald Pittman Attending Provider [phone] Sridhar PITTMAN, Dr. Donald Pittman Primary Care Provider Sridhar PITTMAN, Dr. Donald Pittman Referring Provider [phone] Arnaldo PITTMAN, Dr. Moya Attending Provider [phone] Arnaldo PITTMAN, Dr. Moya Referring Provider Ky PITTMAN, Dr. Sena Attending Provider Sridhar PITTMAN, Dr. Donald Pittman Primary Care Provider [phone] Sridhar PITTMAN, Dr. Donald Pittman Referring Provider [phone] Sudheer FAN-CJeninfer Attending Provider [place] PITTMAN, Dr. Sena Attending Provider Sudheer ORDNANCE ENGINEER-CJennifer Referring Provider Susie Solomon CNM Attending Provider [phone] Sridhar PITTMAN, Dr. Donald Pittman Primary Care Provider [phone] Arnaldo PITTMAN, Dr. Moya Attending Provider Dr. Nita Mcintosh MD Referring Provider Sridhar PITTMAN, Dr. Donald Pittman Primary Care Provider [phone] Sridhar PITTMAN, Dr. Donald Pittman Referring Provider [...] Schinner, Donald E Primary Care Unavailable Sudheer ORDNANCE ENGINEER, Jennifer Referring Unavailable Sudheer ORDNANCE ENGINEER, Jennifer Attending Unavailable Schinner, Donald E Referring [...] Attending Unavailable Nita Mcintosh Referring Unavailable Sudheer ORDNANCE ENGINEER, Jennifer Referring Unavailable [place] ORDNANCE ENGINEER, Jennifer Attending Unavailable Schinner, Donald E Primary [...] Primary Care Unavailable Donald Waller Referring Unavailable Donald Waller Primary Care Unavailable Dinh Livingston Attending Unavailable Donald Waller Referring Unavailable Jennifer Willard NP Attending Unavailable Donald Waller Primary Care Unavailable Donald Waller Referring Unavailable Magda Franklin Attending Unavailable Donald Waller Primary Care Unavailable Medications Current Medications Medication Drug Class(es) Dates Sig (Normalized) Sig (Original) bacillus coagulans [id number] unt chewable tablet (17 sources) Start: 05-26-2024 [...] 60 2 August 04, 2024 12:00am Pnv No.051-Yf-Mx1-Dha-Epa -Fish 400 mcg-35 mg- 25 mg-5 mg tablet,chewable (17 sources) Start: 05-26-2024 Pnv No.309-Za-Bd7-Dha -Epa-Fish 400 mcg-35 mg- 25 mg-5 mg [...] (20 sources) Congenital vesicoureterorenal reflux; Translations: [Congenital caicgh-axxjdeu-zlbkx reflux] Onset: 5 08-04-2024 Chronic Comment on [...] Test Name Value Interpretation Reference Range Facility Photo Colorer Office Visit Reporton 01-04-2025 Photo Colorer Office Visit Report [facility]'s [address], [address] [place] [address] OFFICE VISIT Date of Service: 01/04/25 MR#: [id number] Acct: [id number] Name: LUCIANO KENDALL Rep #: [id number] : 2000 Provider: Dr. Nita motley MD Age/Sex: 24/F [place] [facility] [place]: Signed Intake Vital Signs 11/09/24 15:36 12/30/24 15:11 01/04/25 15:10 Height 5 ft 8 in 5 ft 8 in 5 ft 8 in Weight: 297 lb 7 oz BMI 45.2 BP 129/85 H Intake Visit Reasons: 40 wk ob *Happy Due Date* Melting Supervisor Required: No Allergies No Known Allergies Allergy [...] : No PFSH PFSH Medical History Congenital yatxjq-ipcayxe-mikor reflux Gallstones UTI (urinary tract infection) Asthma Surgical History Hx of cholecystectomy Hx of tonsillectomy Family History Father Diabetes Type 1 Aunt Thyroid disorder Maternal Mother Thyroid disorder enlarged Grandmother Breast cancer Paternal Social History adopted: No household members: significant other 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al status: 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 07/07/ (more content not included)... Normal [facility] Laboratory - Chemistry and C hemistry - challengeOrdered By: Susan Coburn on 12-30-2024 Glucose Ql (U) Negative [facility] Laboratory - UrinalysisOrder ed By: Susan Coburn on 12-30-2024 Protein Ql (U) Negative [facility] Photo Colorer Office Visit Reporton 12-30-2024 Photo Colorer Office Visit Report [facility]'s [address], [address] [place] [address] OFFICE VISIT Date of Service: 12/30/24 MR#: [id number] Acct: [id number] Name: LUCIANO KENDALL Rep #: [id number] : 2000 Provider: Dr. Susan Lau DO Age/Sex: 24/F [place] [facility] [place] Status: Signed Intake Vital Signs 11/09/24 15:36 12/22/24 12:59 12/30/24 15:08 12/30/24 15:11 Height 5 ft 8 in 5 ft 8 in 5 ft 8 in 5 ft 8 in Weight: 296 lb 4 oz BMI 45.0 BP 119/82 H Intake Visit Reasons: 39 wk ob Melting Supervisor Required: No Is patient in pain?: No [...] : No PFSH PFSH Medical History Congenital mzkrer-aywwhsi-lawpi reflux Gallstones UTI (urinary tract infection) Asthma Surgical History Hx of cholecystectomy Hx of tonsillectomy Family History Father Diabetes Type 1 Aunt Thyroid disorder Maternal Mother Thyroid disorder enlarged Grandmother Breast cancer Paternal Social History adopted: No household members: significant other 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al status: 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al exposures/hazards: No pets and [...] 1-2 times per week duration: 60-90 minutes/day sid/baptism: None seatbelt use: always do you feel [...] 07/07/24 -???- (more content not included)... Normal [facility] Laboratory - Chemistry and C hemistry - challengeOrdered By: Nita Mcintosh on 12-22-2024 Glucose Ql (U) Negative [facility] Laboratory - UrinalysisOrder ed By: Nita Mcintosh on 12-22-2024 Protein Ql (U) Negative [facility] Photo Colorer Office Visit Reporton 12-22-2024 Photo Colorer Office Visit Report [facility] [address], [address] [place] [address] OFFICE VISIT Date of Service: 12/22/24 MR#: [id number] Acct: [id number] Name: LUCIANO KENDALL Rep #: [id number] : 2000 Provider: Dr. Nita motley MD Age/Sex: 24/F [place] [facility] [place] Status: Signed Intake Vital Signs 11/09/24 15:36 11/19/24 08:40 12/17/24 15:50 12/22/24 12:59 Height 5 ft 8 in 5 ft 8 in 5 ft 8 in 5 ft 8 in Weight: 293 lb BMI 44.5 BP 119/83 H Intake Visit Reasons: 38 wk ob Melting Supervisor Required: No Is patient in pain?: No [...] : No PFSH PFSH Medical History Congenital udqnei-vjfvydg-xpinj reflux Gallstones UTI (urinary tract infection) Asthma Surgical History Hx of cholecystectomy Hx of tonsillectomy Family History Father Diabetes Type 1 Aunt Thyroid disorder Maternal Mother Thyroid disorder enlarged Grandmother Breast cancer Paternal Social History adopted: No household members: significant other 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al status: 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 Normal [facility] Rule out Beta Strep (Grp. B) on 12-21-2024 [place] Group B Beta Streptococcus is not isolated. Normal [facility] Comment on above: Performed By: #### L 100.0100, L509.8002, L3890.6006 #### [facility] [address] [place], [address] Laboratory - Chemistry and C hemistry - challengeOrdered By: Nita Mcintosh on 12-17-2024 Glucose Ql (U) Negative [facility] Laboratory - UrinalysisOrder ed By: Nita Mcintosh on 12-17-2024 Protein Ql (U) Negative [facility] Photo Colorer Office Visit Reporton 12-17-2024 Photo Colorer Office Visit Report [facility]'s [address], [address] [place] [address] OFFICE VISIT Date of Service: 12/17/24 MR#: [id number] Acct: [id number] Name: LUCIANO KENDALL Rep #: [id number] : 2000 Provider: Dr. Nita motley MD Age/Sex: 24/F [place] [facility] [place]: Signed Intake Vital Signs 11/09/24 15:36 12/08/24 09:37 12/17/24 15:48 12/17/24 15:50 Height 5 ft 8 in 5 ft 8 in 5 ft 8 in 5 ft 8 in Weight: 291 lb 2 oz BMI 44.2 BP 138/87 H Intake Visit Reasons: 37 wk ob Melting Supervisor Required: No Is patient in pain?: No [...] : No PFSH PFSH Medical History Congenital ndkqlh-vwvusxz-zqucy reflux Gallstones UTI (urinary tract infection) Asthma Surgical History Hx of cholecystectomy Hx of tonsillectomy Family History Father Diabetes Type 1 Aunt Thyroid disorder Maternal Mother Thyroid disorder enlarged Grandmother Breast cancer Paternal Social History adopted: No household members: significant other 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al status: 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 accep (more content not included)... Normal [facility] Screening beta-hemolytic Str eptococcus cultureOrdered By: Nita Mcintosh on 12-17-2024 Beta-hemolytic Streptococcus culture Group B Beta Streptococcus is not isolated. [facility] Laboratory - Chemistry and C hemistry - challengeOrdered By: Susie Solomon on 12-08-2024 Glucose Ql (U) Negative [facility] Laboratory - UrinalysisOrder ed By: Susie Solomon on 12-08-2024 Protein Ql (U) Negative [facility] Photo Colorer Office Visit Reporton 12-08-2024 Photo Colorer Office Visit Report [facility]'s [address], [address] [place] [address] OFFICE VISIT Date of Service: 12/08/24 MR#: [id number] Acct: [id number] Name: LUCIANO KENDALL Rep #: [id number] : 2000 Provider: ALEXANDRA Coughlin ams Age/Sex: 24/F [place] [facility] [place] Status: Signed Intake Vital Signs 10/27/24 13:28 11/27/24 14:23 12/08/24 09:37 Height 5 ft 8 in 5 ft 8 in 5 ft 8 in Weight: 286 lb 8 oz BMI 43.5 BP 130/82 H Intake Visit Reasons: 36wk ob Chief Complaint: 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 Is patient in pain?: No [...] year?: No PFSH PFSH Medical History Congenital bgowcc-hgqzqyf-lhhwu reflux Gallstones UTI (urinary tract infection) Asthma Surgical History Hx of cholecystectomy Hx of tonsillectomy Family History Father Diabetes Type 1 Aunt Thyroid disorder Maternal Mother Thyroid disorder enlarged Grandmother Breast cancer Paternal Social History adopted: No household members: significant other 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al status: 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 07/07/24 (more content not included)... Normal [facility] Laboratory - Chemistry and C hemistry - challengeOrdered By: Nita Mcintosh on 11-27-2024 Glucose Ql (U) Negative [facility] Laboratory - UrinalysisOrder ed By: Nita Mcintosh on 11-27-2024 Protein Ql (U) Negative [facility] Photo Colorer Office Visit Reporton 11-27-2024 Photo Colorer Office Visit Report [facility]'s [address], [address] [place] [address] OFFICE VISIT Date of Service: 11/27/24 MR#: [id number] Acct: [id number] Name: LUCIANO KENDALL Rep #: [id number] : 2000 Provider: Dr. Nita motley MD Age/Sex: 24/F Location[place] [facility] [place] Status: Signed Intake Vital Signs 10/27/24 13:28 11/09/24 15:36 11/19/24 08:40 11/27/24 14:23 Height 5 ft 8 in 5 ft 8 in 5 ft 8 in 5 ft 8 in Weight: 282 lb 3 oz BMI 42.9 BP 138/85 H Intake Visit Reasons: 34wk ob Melting Supervisor Required: No Is patient in pain?: No [...] : No PFSH PFSH Medical History Congenital divoqu-fbyitjc-wzucz reflux Gallstones UTI (urinary tract infection) Asthma Surgical History Hx of cholecystectomy Hx of tonsillectomy Family History Father Diabetes Type 1 Aunt Thyroid disorder Maternal Mother Thyroid disorder enlarged Grandmother Breast cancer Paternal Social History adopted: No household members: significant other 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al status: 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 accepts (more content not included)... Normal [facility] Urine Cultureon 11-21-2024 URC Below infection level. Mixed Gram Positive Organisms [place] Count <1000 MIXC Mixed contaminants. Submit a new specimen if indicated. Normal [facility] Comment on above: Performed By: #### M 100.2200, L100.0100 #### [facility] [address] [place], [place], [address] Absolute lymphocyte countOrd ered By: Nita Corralesalta on 11-19-2024 Lymphocytes Auto (Unsp spec) [#/Vol] 2.77 10*3/uL 0.83-4.51 [facility] Absolute neutrophil countOrd ered By: Nita Corralesalta on 11-19-2024 Neutrophils (Bld) [#/Vol] 11.4 10*3/uL High 2.0-7.7 [facility] Automated lymphocyte count a s percentage of total leukocytesOrdered By: Nita Corralesalta on 11-19-2024 Lymphocytes/100 WBC Auto (Unsp spec) 17.0 % Low 19-41 [facility] Basophil percentageOrdered B y: Nita Corralesalta on 11-19-2024 Basophils/100 WBC (Bld) 0.4 % 0-1 [facility] CBC W/Diff, Automatedon 10-28 Absolute Lymph 2.77 X10 3/uL Normal 0.83-4.51 [facility] Comment on above: Performed By: #### M 100.2200, L100.0100 #### [facility] [address] [place], [place], [address] Absolute Neut 11.4 X10 3/uL High 2.0-7.7 [facility] Comment on above: Performed By: #### M 100.2200, L100.0100 #### [facility] [address] [place], [address] Basophils/100 WBC (Bld) 0.4 % Normal 0-1 [facility] Comment on above: Performed By: #### M 100.2200, L100.0100 #### [facility] [address] [place], [address] Eosinophils/100 WBC (Bld) 1.2 % Normal 0-5 [facility] Comment on above: Performed By: #### M 100.2200, L100.0100 #### [facility] [address] [place], [address] Erythrocyte distribution width (RBC) [Ratio] 13.2 % Normal 11.6-14.6 [facility] Comment on above: Performed By: #### M 100.0, L100.0100 #### [facility] [address] [place], [address] Hematocrit (Bld) [Volume fraction] 37.2 % Normal 37-47 [facility] Comment on above: Performed By: #### M 100.2200, L100.0100 #### [facility] [address] [place], [address] Hemoglobin (Bld) [Mass/Vol] 12.5 g/dL Normal 12.0-15.0 [facility] Comment on above: Performed By: #### M 100.2200, L100.0100 #### [facility] [address] [place], [address] IG% 4.900 High 0.0-0.9 [facility] Comment on above: Result Comment: IG% - Immature Granulocytes (promyelocytes, myelocytes and metamyelocytes) > 1% indicates that a LEFT SHIFT is Present. Performed By: #### M 100.2200, L100.0100 #### [facility] [address] [place], [address] Lymphocytes/100 WBC (Bld) 17.0 % Low 19-41 [facility] Comment on above: Performed By: #### M 100.2200, L100.0100 #### [facility] [address] [place], [address] MCH (RBC) [Entitic mass] 29.8 pg Normal 27.0-32.0 [facility] Comment on above: Performed By: #### M 100.2200, L100.0100 #### [facility] [address] [place], [address] MCHC (RBC) [Mass/Vol] 33.6 g/dL Normal 32-36 [facility] Comment on above: Performed By: #### M 100.0, L100.0100 #### [facility] [address] [place], [address] MCV (RBC) [Entitic vol] 88.8 fL Normal 81-99 [facility] Comment on above: Performed By: #### M 100.0, L100.0100 #### [facility] [address] [place], [address] Monocytes/100 WBC (Bld) 6.2 % Normal 0-10 [facility] Comment on above: Performed By: #### M 100.2200, L100.0100 #### [facility] [address] [place], [address] Neutrophils/100 WBC (Bld) 70.3 % High 47-70 [facility] Comment on above: Performed By: #### M 100.2200, L100.0100 #### [facility] [address] [place], [address] Nucleated RBC (Bld) [#/Vol] 0 10*3/uL Normal 0-5 [facility] Comment on above: Performed By: #### M 100.2200, L100.0100 #### [facility] [address] [place], [address] Platelet mean volume (Bld) [Entitic vol] 11.0 fL Normal 6.2-12.0 [facility] Comment on above: Performed By: #### M 100.2200, L100.0100 #### [facility] [address] [place], [address] Platelets (Bld) [#/Vol] 192 10*3/uL Normal 150-450 [facility] Comment on above: Performed By: #### M 100.2200, L100.0100 #### [facility] [address] [place], [address] RBC (Bld) [#/Vol] 4.19 10*6/uL Low 4.2-5.4 [facility] Comment on above: Performed By: #### M 100.2200, L100.0100 #### [facility] [address] [place], [address] RDW SD 42.8 fl Normal 35.1-43.9 [facility] Comment on above: Performed By: #### M 100.2200, L100.0100 #### [facility] [address] [place], [address] WBC (Bld) [#/Vol] 16.3 10*3/uL High 4.4-11.0 [facility] Comment on above: Performed By: #### M 100.2200, L100.0100 #### [facility] [address] [place], [address] Eosinophil percentageOrdered By: Ntia Mcintosh on 11-19-2024 Eosinophils/100 WBC (Bld) 1.2 % 0-5 [facility] Erythrocyte distribution wid th ratioOrdered By: Nita Mcintosh on 11-19-2024 Erythrocyte distribution width (RBC) [Ratio] 13.2 % 11.6-14.6 [facility] Erythrocyte distribution wid th standard deviationOrdered By: Nita Mcintosh on 11-19-2024 Erythrocyte distribution width (RBC) [Ratio] 42.8 fl 35.1-43.9 [facility] Hematocrit Auto (Bld) [Volum e fraction]Ordered By: Nita Mcintosh on 11-19-2024 Hematocrit (Bld) [Volume fraction] 37.2 % 37-47 [facility] Hemoglobin measurementOrdere d By: Nita Mcintosh on 11-19-2024 Hemoglobin (Bld) [Mass/Vol] 12.5 g/dL 12.0-15.0 [facility] Immature granulocytes/100 WB C Auto (Bld)Ordered By: Nita Mcintosh on 11-19-2024 Immature granulocytes/100 WBC (Bld) 4.900 % High 0.0-0.9 [facility] Comment on above: IG% - Immature Granu locytes (promyelocytes, myelocytes and metamyelocytes) > 1% indicates that a LEFT SHIFT is Present. Laboratory - Chemistry and C hemistry - challengeOrdered By: Nita Mcintosh on 11-19-2024 Bilirubin Ql (U) Negative [facility] Glucose Ql (U) Negative [facility] Ketones Ql (U) Negative [facility] pH (U) 6.5 [pH] [facility] Urobilinogen (U) [Mass/Vol] Negative [facility] Laboratory - Hematology and Cell countsOrdered By: Nita Mcintosh on 11-19-2024 Hemoglobin Ql (U) Negative [facility] Laboratory - Specimen inform ationOrdered By: Nita Mcintosh on 11-19-2024 Clarity (U) Cloudy [facility] Color (U) Yellow [facility] Laboratory - UrinalysisOrder ed By: Nita Mcintosh on 11-19-2024 Nitrite Ql (U) Negative [facility] Protein Ql (U) Negative [facility] MCV (mean corpuscular volume ) determinationOrdered By: Nita Mcintosh on 11-19-2024 MCV (RBC) [Entitic vol] 88.8 fL 81-99 [facility] Mean corpuscular hemoglobin (MCH) determinationOrdered By: Nita Mcintosh on 11-19-2024 MCH (RBC) [Entitic mass] 29.8 pg 27.0-32.0 [facility] Mean corpuscular hemoglobin concentration (MCHC) determinationOrdered By: Nita Mcintosh on 11-19-2024 MCHC (RBC) [Mass/Vol] 33.6 g/dL 32-36 [facility] Mean platelet volume determi nationOrdered By: Nita Mcintosh on 11-19-2024 Platelet mean volume (Bld) [Entitic vol] 11.0 fL 6.2-12.0 [facility] Monocyte percentageOrdered B y: Nita Mcintosh on 11-19-2024 Monocytes/100 WBC (Bld) 6.2 % 0-10 [facility] Neutrophil percentageOrdered By: Nita Mcintosh on 11-19-2024 Neutrophils/100 WBC (Bld) 70.3 % High 47-70 [facility] No Panel InformationOrdered By: Nita Mcintosh on 11-19-2024 Urine Leukocytes Positive [facility] Urine Non-Hemolyzed Blood Negative [facility] Nucleated red blood cell per centageOrdered By: Nita Mcintosh on 11-19-2024 Nucleated RBC/100 WBC (Bld) [Ratio] 0 % 0-5 [facility] Photo Colorer Office Visit Reporton 11-19-2024 Photo Colorer Office Visit Report [facility] [address], [address] [place] [address] OFFICE VISIT Date of Service: 11/19/24 MR#: [id number] Acct: [id number] Name: LUCIANO KENDALL Rep #: [id number] : 2000 Provider: Dr. Nita motley MD Age/Sex: 24/F [place] [facility] [place] Status: Signed Intake Vital Signs 11/09/24 15:36 11/19/24 08:40 Height 5 ft 8 in 5 ft 8 in Weight: 272 lb 6 oz BMI 41.4 BP 126/84 H Intake Visit Reasons: UA Chief Complaint: UA culture Melting Supervisor Required: No Is patient in pain?: No [...] drawn toda y. Urine sent for culture. 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 Normal [facility] Platelet countOrdered By: Amilcar Mcintosh on 11-19-2024 Platelets (Bld) [#/Vol] 192 10*3/uL 150-450 [facility] RBC Auto (Bld) [#/Vol]Ordere d By: Nita Mcintosh on 11-19-2024 RBC (Bld) [#/Vol] 4.19 10*6/uL Low 4.2-5.4 [facility] Urine cultureOrdered By: Dariusz Mcintosh on 11-19-2024 Bacteria identified Cx Nom (U) Positive Abnormal [facility] White blood cell (WBC) count Ordered By: Nita Mcintosh on 11-19-2024 WBC (Bld) [#/Vol] 16.3 10*3/uL High 4.4-11.0 [facility] CBC W/Diff, Automatedon 10-28 PATH REV Reviewed Normal [facility] Comment on above: Result Comment: SEE REPORT IN PATIENT'S EMR AMENDED REPORT 11/18/24 1111 PATH REV previously reported as: Bailey faustin Performed By: #### L 100.0100, L509.8002, L3890.6006 #### [facility] [address] [place], [place] [address]julienne [place], [address] Laboratory - Chemistry and C hemistry - challengeOrdered By: Nita Mcintosh on 11-09-2024 Glucose Ql (U) Negative [facility] [facility] - UrinalysisOrder ed By: Nita Mcintosh on 11-09-2024 Protein Ql (U) Negative [facility] Photo Colorer Office Visit Reporton 11-09-2024 Photo Colorer Office Visit Report [address], [address] [place] [address] OFFICE VISIT Date of Service: 11/09/24 MR#: [id number] Acct: [id number] Name: LUCIANO KENDALL Rep #: [id number] : 2000 Provider: Dr. Nita motley MD Age/Sex: 24/F [place] [facility] [place]: Signed Intake Vital Signs 09/01/24 15:04 10/27/24 13:28 11/09/24 15:36 Height 5 ft 8 in 5 ft 8 in 5 ft 8 in Weight: 273 lb 4 oz BMI 41.5 BP 133/84 H Intake Visit Reasons: 32wk ob Melting Supervisor Required: No Is patient in pain?: No [...] : No PFSH PFSH Medical History Congenital ovpomj-gnecdzx-tcbfv reflux Gallstones UTI (urinary tract infection) Asthma Surgical History Hx of cholecystectomy Hx of tonsillectomy Family History Father Diabetes Type 1 Aunt Thyroid disorder Maternal Mother Thyroid disorder enlarged Grandmother Breast cancer Paternal Social History adopted: No household members: significant other 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al status: 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 Normal [facility] Absolute lymphocyte countOrd ered By: Susan Coburn on 10-27-2024 Lymphocytes Auto (Unsp spec) [#/Vol] 1.68 10*3/uL 0.83-4.51 [facility] Absolute neutrophil countOrd ered By: Susan Coburn on 10-27-2024 Neutrophils (Bld) [#/Vol] 15.3 10*3/uL High 2.0-7.7 [facility] Anion gap in Serum or Plasma Ordered By: Jennifer Willard on 10-27-2024 Anion gap [Moles/Vol] 14 mmol/L 5-15 [facility] BUN/creatinine ratioOrdered By: Jennifer Wilalrd on 10-27-2024 Urea nitrogen/Creatinine [Mass ratio] 16.7 mg/mg 10-20 [facility] Bilirubin, totalOrdered By: Jennifer Willard on 10-27-2024 Bilirubin [Mass/Vol] 0.17 mg/dL 0.00-1.30 [facility] Blood band neutrophil count as percentage of total leukocytesOrdered By: Susan Coburn on 10-27-2024 Band form neutrophils/100 WBC (Bld) 12 % High 0-5 [facility] Blood eosinophils/100 leukoc ytesOrdered By: Susan Coburn on 10-27-2024 Eosinophils/100 WBC (Bld) 1 % 0-5 [facility] Blood lymphocytes/100 leukoc ytesOrdered By: Susan Coburn on 10-27-2024 Lymphocytes/100 WBC (Bld) 9 % Low 19-41 [facility] Blood monocytes/100 leukocyt esOrdered By: Susan Coburn on 10-27-2024 Monocytes/100 WBC (Bld) 4 % 0-10 [facility] Blood segmented neutrophils/ 100 leukocytesOrdered By: Susan Coburn on 10-27-2024 Segmented neutrophils/100 WBC (Bld) 70 % 47-70 [facility] Carbon dioxide, total [Moles /volume] in Central venous bloodOrdered By: Jennifer Willard on 10-27-2024 CO2 [Moles/Vol] 19.6 mmol/L Low 21.0-32.0 [facility] Chloride assayOrdered By: David Willard on 10-27-2024 Chloride [Moles/Vol] 104 mmol/L 98-108 [facility] Comprehensive Metabolic Prof ilon 10-27-2024 Albumin [Mass/Vol] 3.5 g/dL Normal 3.5-5.0 [facility] Comment on above: Performed By: #### L 500.4050 #### [facility] [address] [place], [place], [address] Albumin/Globulin [Mass ratio] 1.1 {ratio} Normal 0.9-2.4 [facility] Comment on above: Performed By: #### L 500.4050 #### [facility] [address] [place], [address] ALK PHOS 81 U/L Normal 35-104 [facility] Comment on above: Performed By: #### L 500.4050 #### [facility] [address] [place], [address] ALT [Catalytic activity/Vol] 19 U/L Normal <=34 [facility] Comment on above: Performed By: #### L 500.4050 #### [facility] [address] [place], [address] AST [Catalytic activity/Vol] 18 U/L Normal <=31 [facility] Comment on above: Performed By: #### L 500.4050 #### [facility] [address] [place], [address] Bilirubin [Mass/Vol] 0.17 mg/dL Normal 0.00-1.30 [facility] Comment on above: Performed By: #### L 500.4050 #### [facility] [address] [place], [address] BUN/CRE 16.7 RATIO Normal 10-20 [facility] Comment on above: Performed By: #### L 500.4050 #### [facility] [address] [place], [address] Calcium [Mass/Vol] 9.3 mg/dL Normal 7.6-11.0 [facility] Comment on above: Performed By: #### L 500.4050 #### [facility] [address] [place], [address] Chloride [Moles/Vol] 104 mmol/L Normal 98-108 [facility] Comment on above: Performed By: #### L 500.4050 #### [facility] [address] [place], [address] CO2 [Moles/Vol] 19.6 mmol/L Low 21.0-32.0 [facility] Comment on above: Performed By: #### L 500.4050 #### [facility] [address] [place], [address] Creatinine [Mass/Vol] 0.68 mg/dL Low 0.70-1.20 [facility] Comment on above: Performed By: #### L 500.4050 #### [facility] [address] [place], [address] GAP 14 Normal 5-15 [facility] Comment on above: Performed By: #### L 500.4050 #### [facility] [address] [place] [place], [address] GFR/1.73 sq M.predicted among non-blacks MDRD (S/P/Bld) [Vol rate/Area] 124 mL/min/{1.73_m2} Normal >60 [facility] Comment on above: Result Comment: mL/m in/1.73m2 CKD-EPI Creatinine Equation (2020) Performed By: #### L 500.4050 #### [facility] [address] [place], [address] Globulin (S) [Mass/Vol] 3.1 g/dL Normal 2.2-4.2 [facility] Comment on above: Performed By: #### L 500.4050 #### [facility] [address] [place], [address] Glucose [Mass/Vol] 89 mg/dL Normal 70-99 [facility] Comment on above: Performed By: #### L 500.4050 #### [facility] [address] [place] [place], [address] Potassium [Moles/Vol] 3.7 mmol/L Normal 3.3-5.1 [facility] Comment on above: Performed By: #### L 500.4050 #### [facility] [address] [place], [place], [address] Sodium [Moles/Vol] 137 mmol/L Normal 133-145 [facility] Comment on above: Performed By: #### L 500.4050 #### [facility] [address] [place], [place], [address] T PROT 6.6 g/dL Normal 5.9-8.4 [facility] Comment on above: Performed By: #### L 500.4050 #### [facility] [address] [place], [place], [address] Urea nitrogen [Mass/Vol] 11 mg/dL Normal 4-19 [facility] Comment on above: Performed By: #### L 500.4050 #### [facility] [address] [place], [place], [address] Erythrocyte distribution wid th ratioOrdered By: Susan Coburn on 10-27-2024 Erythrocyte distribution width (RBC) [Ratio] 13.0 % 11.6-14.6 [facility] Erythrocyte distribution wid th standard deviationOrdered By: Susan Coburn on 10-27-2024 Erythrocyte distribution width (RBC) [Ratio] 42.5 fl 35.1-43.9 [facility] Glomerular filtration rate ( GFR) estimation/1.73 sq m using serum, plasma, or whole bOrdered By: Jennifer Willard on 10-27-2024 GFR/1.73 sq M.predicted among non-blacks MDRD (S/P/Bld) [Vol rate/Area] 124 mL/min/{1.73_m2} >60 [facility] Comment on above: mL/min/1.73m2 CKD-EP I Creatinine Equation (2020) HIVon 10-27-2024 HIV Non-Reactive Normal Nonreactive [facility] Comment on above: Result Comment: Non- Reactive Reactive Repeatedly reactive samples must be confirmed according to CDC recommended confirmatory algorithms. The subresults for either HIVAG or AHIV can be used as an aid in the selection of the confirmation algorithm for reactive samples. Send out specimens with Reactive results to [facility] for confirmation. Order the HIV antibody detection and differentiation: #[id number] Performed By: #### L 100.0100, L509.8002, L3890.6006 #### [facility] [address] [place], [address] Hematocrit Auto (Bld) [Volum e fraction]Ordered By: Susan Coburn on 10-27-2024 Hematocrit (Bld) [Volume fraction] 36.7 % Low 37-47 [facility] Hemoglobin measurementOrdere d By: Susan Coburn on 10-27-2024 Hemoglobin (Bld) [Mass/Vol] 12.2 g/dL 12.0-15.0 [facility] Laboratory - Chemistry and C hemistry - challengeOrdered By: Jennifer Willard on 10-27-2024 AST [Catalytic activity/Vol] 18 U/L <32 [facility] Laboratory - Chemistry and C hemistry - challengeOrdered By: Susan Coburn on 10-27-2024 Glucose Ql (U) Negative [facility] Laboratory - UrinalysisOrder ed By: Susan Coburn on 10-27-2024 Protein Ql (U) Negative [facility] MCV (mean corpuscular volume ) determinationOrdered By: Susan Coburn on 10-27-2024 MCV (RBC) [Entitic vol] 90.2 fL 81-99 [facility] Mean corpuscular hemoglobin (MCH) determinationOrdered By: Susan Coburn on 10-27-2024 MCH (RBC) [Entitic mass] 30.0 pg 27.0-32.0 [facility] Mean corpuscular hemoglobin concentration (MCHC) determinationOrdered By: Susan Coburn on 10-27-2024 MCHC (RBC) [Mass/Vol] 33.2 g/dL 32-36 [facility] Mean platelet volume determi nationOrdered By: Susan Coburn on 10-27-2024 Platelet mean volume (Bld) [Entitic vol] 11.3 fL 6.2-12.0 [facility] Myelocyte %Ordered By: Fátima Coburn on 10-27-2024 Myelocytes/100 WBC (Bld) 4 % High 0-0 [facility] No Panel InformationOrdered By: Susan Coburn on 10-27-2024 HIV (1&2) Antibody Non-Reactive Nonreactive [facility] Comment on above: Non-ReactiveReactive Repeatedly reactive samples must be confirmed according to CDC recommended confirmatory algorithms. The subresults for either HIVAG or AHIV can be used as an aid in the selection of the confirmation algorithm for reactive samples.Send out specimens with Reactive results to [facility] for confirmation.Order the HIV antibody detection and differentiation: #[id number] Photo Colorer Office Visit Reporton 10-27-2024 Photo Colorer Office Visit Report [facility] [address], [address] [place] [address] OFFICE VISIT Date of Service: 10/27/24 MR#: [id number] Acct: [id number] Name: LUCIANO KENDALL Rep #: [id number] : 2000 Provider: ANY dykes Age/Sex: 24/F [place] [facility] [place] Status: Signed Intake Vital Signs 09/01/24 15:04 09/28/24 14:56 10/27/24 13:27 10/27/24 13:28 Height 5 ft 8 in 5 ft 8 in 5 ft 8 in 5 ft 8 in Weight: 262 lb 265 lb 4 oz BMI 39.8 40.3 BP 122/76 H 133/87 H Intake Visit Reasons: 30wk ob Melting Supervisor Required: No Is patient in pain?: No [...] : No PFSH PFSH Medical History Congenital yxrrvm-qyiospo-vdfum reflux Gallstones UTI (urinary tract infection) Asthma Surgical History Hx of cholecystectomy Hx of tonsillectomy Family History Father Diabetes Type 1 Aunt Thyroid disorder Maternal Mother Thyroid disorder enlarged Grandmother Breast cancer Paternal Social History adopted: No household members: significant other 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al status: 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 Normal [facility] Platelet countOrdered By: Jamel Coburn on 10-27-2024 Platelets (Bld) [#/Vol] 204 10*3/uL 150-450 [facility] Platelet estimateOrdered By: Susan Coburn on 10-27-2024 Platelets LM Ql (Bld) ADEQUATE ADEQ [facility] Potassium measurement (mass/ volume)Ordered By: Jennifer Willard on 10-27-2024 Potassium (Unsp spec) [Mass/Vol] 3.7 mmol/L 3.3-5.1 [facility] Protein+Creatinine Ratio,Uri neon 10-27-2024 PROT:CRE RATIO UNABLE TO CALCULATE Normal 0-200 [facility] Comment on above: Performed By: #### M 100.2200, L100.0100 #### [facility] [address] [place], [address] PROTEIN,UR.RAN. < 6.0 Normal 0.0-12.0 [facility] Comment on above: Performed By: #### M 100.2200, L100.0100 #### [facility] [address] [place], [address] UR CREAT 42.10 mg/dL Normal 28.00-217.00 [facility] Comment on above: Performed By: #### M 100.2200, L100.0100 #### [facility] [address] [place], [address] RBC Auto (Bld) [#/Vol]Ordere d By: Susan Coburn on 10-27-2024 RBC (Bld) [#/Vol] 4.07 10*6/uL Low 4.2-5.4 [facility] Random urine creatinine mika urement (mass/volume)Ordered By: Jennifer Willard on 10-27-2024 Creatinine Unsp time (U) [Mass/Vol] 42.10 mg/dL 28.00-217.00 [facility] Review by pathologistOrdered By: Susan Coburn on 10-27-2024 Pathologist review Gutierrez (Unsp spec) [Interp] Bailey faustin [facility] Pathologist review Gutierrez (Unsp spec) [Interp] Reviewed [facility] Comment on above: Previous reported re sult: Bailey faustin Edited by: WALKER on 11/18/24:1111SEE REPORT IN PATIENT'S EMR AMENDED REPORT 11/18/24 1111 PATH REV previously reported as: Bailey faustin Serum creatinine measurement (mass/volume)Ordered By: Jennifer Willard on 10-27-2024 Creatinine [Mass/Vol] 0.68 mg/dL Low 0.70-1.20 [facility] Serum globulin measurementOr dered By: Jennifer Willard on 10-27-2024 Globulin (S) [Mass/Vol] 3.1 g/dL 2.2-4.2 [facility] Serum glucose measurement (m ass/volume)Ordered By: Jennifer Willard on 10-27-2024 Glucose [Mass/Vol] 89 mg/dL 70-99 [facility] Serum or plasma alanine terrazas otransferase (ALT) measurementOrdered By: Jennifer Willard on 10-27-2024 ALT [Catalytic activity/Vol] 19 U/L <35 [facility] Serum or plasma albumin mika urement (mass/volume)Ordered By: Jennifer Willard on 10-27-2024 Albumin [Mass/Vol] 3.5 g/dL 3.5-5.0 [facility] Serum or plasma albumin/glob ulin mass ratioOrdered By: Jennifer Willard on 10-27-2024 Albumin/Globulin [Mass ratio] 1.1 {ratio} 0.9-2.4 [facility] Serum or plasma alkaline lebron sphatase measurementOrdered By: Jennifer Willard on 10-27-2024 ALP [Catalytic activity/Vol] 81 U/L 35-104 [facility] Serum or plasma calcium mika urement (mass/volume)Ordered By: Jennifer Willard on 10-27-2024 Calcium [Mass/Vol] 9.3 mg/dL 7.6-11.0 [facility] Serum or plasma urea nitroge n measurement (mass/volume)Ordered By: Jennifer Willard on 10-27-2024 Urea nitrogen [Mass/Vol] 11 mg/dL 4-19 [facility] Sodium levelOrdered By: Constantine Willard on 10-27-2024 Sodium [Moles/Vol] 137 mmol/L 133-145 [facility] Syphilis Antibodieson 2024 Syphilis Abs Non-Reactive Normal Nonreactive [facility] Comment on above: Performed By: #### L 100.0100, L509.8002, L3890.6006 #### [facility] [address] [place], [place], [address] Total cell countOrdered By: Ssuan Coburn on 10-27-2024 Cells counted Molgen (Bld/Tiss) [#] 100 MANUAL DIFF [facility] Total proteinOrdered By: Merlin Willard on 10-27-2024 Protein [Mass/Vol] 6.6 g/dL 5.9-8.4 [facility] Urine protein measurement (m ass/volume)Ordered By: Jennifer Willard on 10-27-2024 Protein (U) [Mass/Vol] mg/dL 0.0-12.0 [facility] Urine protein/creatinine mas s ratioOrdered By: Jennifer Willard on 10-27-2024 Protein/Creatinine (U) [Mass ratio] UNABLE TO CALCULATE mg/g CRE 0-200 [facility] White blood cell (WBC) count Ordered By: Susan Coburn on 10-27-2024 WBC (Bld) [#/Vol] 18.7 10*3/uL High 4.4-11.0 [facility] Glucose Challenge Gest 1H 50 anthony 10-10-2024 GLU GEST 50g 1H 110 mg/dL Normal 70-140 [facility] Comment on above: Performed By: #### L 501.0250 #### [facility] [address] [place], [address] Glucose measurement at 2 shakila rs post-dose gestational glucose tolerance testOrdered By: Susan Coburn on 10-10-2024 Glucose [Mass/Vol] 110 mg/dL 70-140 [facility] - Chemistry and C hemistry - challengeOrdered By: Jennifer Willard on 09-28-2024 Glucose Ql (U) Negative [facility] Laboratory - UrinalysisOrder ed By: Jennifer Willard on 09-28-2024 Protein Ql (U) Negative [facility] Photo Colorer Office Visit Reporton 09-28-2024 Photo Colorer Office Visit Report [facility]'s [address], [address] [place] [address] OFFICE VISIT Date of Service: 09/28/24 MR#: [id number] Acct: [id number] Name: LUCIANO KENDALL Rep #: [id number] : 2000 Provider: ANY dykse Age/Sex: 24/F [place] [facility] [place] Status: Signed Intake Vital Signs 09/01/24 15:04 09/28/24 07:30 09/28/24 14:56 Height 5 ft 8 in 5 ft 8 in 5 ft 8 in Weight: 262 lb BMI 39.8 BP 122/76 H Intake Visit Reasons: 26wk ob Chief Complaint: 26 Week OB Melting Supervisor Required: No Is patient in pain?: No [...] : No PFSH PFSH Medical History Congenital rancig-wtzpniy-ldlcp reflux Gallstones UTI (urinary tract infection) Asthma Surgical History Hx of cholecystectomy Hx of tonsillectomy Family History Father Diabetes Type 1 Aunt Thyroid disorder Maternal Mother Thyroid disorder enlarged Grandmother Breast cancer Paternal Social History adopted: No household members: significant other 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al status: 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 acce (more content not included)... Normal [facility] Urgent Care Visit Reporton 0 09-28-2024 Urgent Care Visit Report [facility] [address], [address] [place] [address] OFFICE VISIT Date of Service: 09/28/24 MR#: [id number] Acct: [id number] Name: LUCIANO KENDALL Rep #: [id number] : 2000 Provider: CLAUDETTE Farmer Age/Sex: 24/F Location: [facility] [place] Status: Signed Intake Vital [...] on Sat night. 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 Normal [facility] Laboratory - Chemistry and C hemistry - challengeOrdered By: Susan Coburn on 09-01-2024 Glucose Ql (U) Negative [facility] Laboratory - UrinalysisOrder ed By: Susan Coburn on 09-01-2024 Protein Ql (U) Negative [facility] Photo Colorer Office Visit Reporton 09-01-2024 Photo Colorer Office Visit Report [facility], [address] [place] [address] OFFICE VISIT Date of Service: 09/01/24 MR#: [id number] Acct: [id number] Name: LUCIANO KENDALL Rep #: [id number] : 2000 Provider: Dr. Susan Lau DO Age/Sex: 24/F [place] [facility] [place] Status: Signed Intake Vital Signs 07/07/24 15:11 08/04/24 10:40 09/01/24 15:02 09/01/24 15:04 Height 5 ft 8 in 5 ft 8 in 5 ft 8 in 5 ft 8 in Weight: 246 lb 2 oz BMI 37.4 BP 125/81 H Intake Visit Reasons: 22 wk ob Melting Supervisor Required: No Is patient in pain?: No [...] : No PFSH PFSH Medical History Congenital tflsdn-jwqfwym-fknkg reflux Gallstones UTI (urinary tract infection) Asthma Surgical History Hx of cholecystectomy Hx of tonsillectomy Family History Father Diabetes Type 1 Aunt Thyroid disorder Maternal Mother Thyroid disorder enlarged Grandmother Breast cancer Paternal Social History adopted: No household members: significant other 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al status: 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 Normal [facility] OB Anatomy w/ Transvaginalon 08-19-2024 OB Anatomy w/ Transvaginal [facility] [address] [place] [address] OB Anatomy w/ Transvaginal MR#: [id number] Acct: [id number] Name: LUCIANO KENDALL Rep #: [id number] : 2000 F 24 From: Kermit griffin MD PCP: Dr. Donald Waller MD Status: [facility] Study: OB Anatomy w/ Transvaginal Date of Exam: 08/19 Exam# [id number] Ordering Dr: Nita Mcintosh PROCEDURE: OB ANATOMY [...] 19 weeks and 4 days. Reading Location: [place] [address] CC: Dr. Donald Waller MD; Dr. Nita Mcintosh MD Transportation Lead: Signed Normal [facility] Absolute lymphocyte countOrd ered By: Jennifer Willard on 08-04-2024 Lymphocytes Auto (Unsp spec) [#/Vol] 2.39 10*3/uL 0.83-4.51 [facility] Absolute neutrophil countOrd ered By: Jennifer Willard on 08-04-2024 Neutrophils (Bld) [#/Vol] 9.9 10*3/uL High 2.0-7.7 [facility] Anion gap in Serum or Plasma Ordered By: Jennifer Willard on 08-04-2024 Anion gap [Moles/Vol] 10 mmol/L 5-15 [facility] Automated lymphocyte count a s percentage of total leukocytesOrdered By: Jennifer Willard on 08-04-2024 Lymphocytes/100 WBC Auto (Unsp spec) 17.6 % Low 19-41 [facility] BUN/creatinine ratioOrdered By: Jennifer Willard on 08-04-2024 Urea nitrogen/Creatinine [Mass ratio] 12.9 mg/mg 10-20 [facility] Basophil percentageOrdered B y: Jennifer Willard on 08-04-2024 Basophils/100 WBC (Bld) 0.5 % 0-1 [facility] Bilirubin, totalOrdered By: Jennifer Willard on 08-04-2024 Bilirubin [Mass/Vol] 0.33 mg/dL 0.00-1.30 [facility] CBC W/Diff, Automatedon 04- Absolute Lymph 2.39 X10 3/uL Normal 0.83-4.51 [facility] Comment on above: Order Comment: ADD O N Performed By: #### M 100.2200, L100.0100 #### [facility] [address] [place], [address] Absolute Neut 9.9 X10 3/uL High 2.0-7.7 [facility] Comment on above: Order Comment: ADD O N Performed By: #### M 100.2200, L100.0100 #### [facility] [address] [place], [address] Basophils/100 WBC (Bld) 0.5 % Normal 0-1 [facility] Comment on above: Order Comment: ADD O N Performed By: #### M 100.0, L100.0100 #### [facility] [address] [place], [address] Eosinophils/100 WBC (Bld) 0.7 % Normal 0-5 [facility] Comment on above: Order Comment: ADD O N Performed By: #### M 100.2200, L100.0100 #### [facility] [address] [place], [address] Erythrocyte distribution width (RBC) [Ratio] 13.4 % Normal 11.6-14.6 [facility] Comment on above: Order Comment: ADD O N Performed By: #### M 100.2200, L100.0100 #### [facility] [address] [place], [address] Hematocrit (Bld) [Volume fraction] 39.8 % Normal 37-47 [facility] Comment on above: Order Comment: ADD O N Performed By: #### M 100.2200, L100.0100 #### [facility] [address] [place], [address] Hemoglobin (Bld) [Mass/Vol] 13.2 g/dL Normal 12.0-15.0 [facility] Comment on above: Order Comment: ADD O N Performed By: #### M 100.0, L100.0100 #### [facility] [address] [place], [address] IG% 2.300 High 0.0-0.9 [facility] Comment on above: Order Comment: ADD O N Result Comment: IG% - Immature Granulocytes (promyelocytes, myelocytes and metamyelocytes) > 1% indicates that a LEFT SHIFT is Present. Performed By: #### M 100.0, L100.0100 #### [facility] [address] [place], [address] Lymphocytes/100 WBC (Bld) 17.6 % Low 19-41 [facility] Comment on above: Order Comment: ADD O N Performed By: #### M 100.2199, L100.0100 #### [facility] [address] [place], [address] MCH (RBC) [Entitic mass] 29.9 pg Normal 27.0-32.0 [facility] Comment on above: Order Comment: ADD O N Performed By: #### M 100.0, L100.0100 #### [facility] [address] [place], [address] MCHC (RBC) [Mass/Vol] 33.2 g/dL Normal 32-36 [facility] Comment on above: Order Comment: ADD O N Performed By: #### M 100.2200, L100.0100 #### [facility] [address] [place], [address] MCV (RBC) [Entitic vol] 90.0 fL Normal 81-99 [facility] Comment on above: Order Comment: ADD O N Performed By: #### M 100.0, L100.0100 #### [facility] [address] [place], [address] Monocytes/100 WBC (Bld) 5.8 % Normal 0-10 [facility] Comment on above: Order Comment: ADD O N Performed By: #### M 100.2199, L100.0100 #### [facility] [address] [place], [address] Neutrophils/100 WBC (Bld) 73.1 % High 47-70 [facility] Comment on above: Order Comment: ADD O N Performed By: #### M 100.2199, L100.0100 #### [facility] [address] [place], [address] Nucleated RBC (Bld) [#/Vol] 0 10*3/uL Normal 0-5 [facility] Comment on above: Order Comment: ADD O N Performed By: #### M , L100.0100 #### [facility] [address] [place], [address] Platelet mean volume (Bld) [Entitic vol] 11.6 fL Normal 6.2-12.0 [facility] Comment on above: Order Comment: ADD O N Performed By: #### M .2199, L100.0100 #### [facility] [address] [place], [address] Platelets (Bld) [#/Vol] 213 10*3/uL Normal 150-450 [facility] Comment on above: Order Comment: ADD O N Performed By: #### M 100.0, L100.0100 #### [facility] [address] [place], [address] RBC (Bld) [#/Vol] 4.42 10*6/uL Normal 4.2-5.4 [facility] Comment on above: Order Comment: ADD O N Performed By: #### M 100.2200, L100.0100 #### [facility] [address] [place], [address] RDW SD 43.9 fl Normal 35.1-43.9 [facility] Comment on above: Order Comment: ADD O N Performed By: #### M 100.2200, L100.0100 #### [facility] [address] [place], [address] WBC (Bld) [#/Vol] 13.6 10*3/uL High 4.4-11.0 [facility] Comment on above: Order Comment: ADD O N Performed By: #### M 100.2200, L100.0100 #### [facility] [address] [place], [address] Carbon dioxide, total [Moles /volume] in Central venous bloodOrdered By: Jennifer Willard on 08-04-2024 CO2 [Moles/Vol] 21.9 mmol/L 21.0-32.0 [facility] Chloride assayOrdered By: David Willard on 08-04-2024 Chloride [Moles/Vol] 104 mmol/L 98-108 [facility] Comprehensive Metabolic Prof ilon 08-04-2024 Albumin [Mass/Vol] 3.8 g/dL Normal 3.5-5.0 [facility] Comment on above: Performed By: #### L 500.4050, L501.0900 #### [facility] [address] [place], [address] Albumin/Globulin [Mass ratio] 1.2 {ratio} Normal 0.9-2.4 [facility] Comment on above: Performed By: #### L 500.4050, L501.0900 #### [facility] [address] [place], [address] ALK PHOS 52 U/L Normal 35-104 [facility] Comment on above: Performed By: #### L 500.4050, L501.0900 #### [facility] [address] [place], [address] ALT [Catalytic activity/Vol] 38 U/L High <=34 [facility] Comment on above: Performed By: #### L 500.4050, L501.0900 #### [facility] [address] [place], [address] AST [Catalytic activity/Vol] 22 U/L Normal <=31 [facility] Comment on above: Performed By: #### L 500.4050, L501.0900 #### [facility] [address] [place], [address] Bilirubin [Mass/Vol] 0.33 mg/dL Normal 0.00-1.30 [facility] Comment on above: Performed By: #### L 500.4050, L501.0900 #### [facility] [address] [place], [address] BUN/CRE 12.9 RATIO Normal 10-20 [facility] Comment on above: Performed By: #### L 500.4050, L501.0900 #### [facility] [address] [place], [address] Calcium [Mass/Vol] 9.3 mg/dL Normal 7.6-11.0 [facility] Comment on above: Performed By: #### L 500.4050, L501.0900 #### [facility] [address] [place], [address] Chloride [Moles/Vol] 104 mmol/L Normal 98-108 [facility] Comment on above: Performed By: #### L 500.4050, L501.0900 #### [facility] [address] [place], [address] CO2 [Moles/Vol] 21.9 mmol/L Normal 21.0-32.0 [facility] Comment on above: Performed By: #### L 500.4050, L501.0900 #### [facility] [address] [place], [address] Creatinine [Mass/Vol] 0.79 mg/dL Normal 0.70-1.20 [facility] Comment on above: Performed By: #### L 500.4050, L501.0900 #### [facility] [address] [place], [address] GAP 10 Normal 5-15 [facility] Comment on above: Performed By: #### L 500.4050, L501.0900 #### [facility] [address] [place], [address] GFR/1.73 sq M.predicted among non-blacks MDRD (S/P/Bld) [Vol rate/Area] 106 mL/min/{1.73_m2} Normal >60 [facility] Comment on above: Result Comment: mL/m in/1.73m2 CKD-EPI Creatinine Equation (2020) Performed By: #### L 500.4050, L501.0900 #### [facility] [address] [place], [address] Globulin (S) [Mass/Vol] 3.1 g/dL Normal 2.2-4.2 [facility] Comment on above: Performed By: #### L 500.4050, L501.0900 #### [facility] [address] [place], [address] Glucose [Mass/Vol] 91 mg/dL Normal 70-99 [facility] Comment on above: Performed By: #### L 500.4050, L501.0900 #### [facility] [address] [place], [address] Potassium [Moles/Vol] 4.1 mmol/L Normal 3.3-5.1 [facility] Comment on above: Performed By: #### L 500.4050, L501.0900 #### [facility] [address] [place], [address] Sodium [Moles/Vol] 136 mmol/L Normal 133-145 [facility] Comment on above: Performed By: #### L 500.4050, L501.0900 #### [facility] [address] [place], [address] T PROT 6.9 g/dL Normal 5.9-8.4 [facility] Comment on above: Performed By: #### L 500.4050, L501.0900 #### [facility] [address] [place], [address] Urea nitrogen [Mass/Vol] 10 mg/dL Normal 4-19 [facility] Comment on above: Performed By: #### L 500.4050, L501.0900 #### [facility] [address] [place], [address] Creatinine Unsp time (U) [Ma ss/Vol]Ordered By: Jennifer Willard on 08-04-2024 Creatinine (U) [Mass/Vol] 169.00 mg/dL 28.00-217.00 [facility] Eosinophil percentageOrdered By: Jennifer Willard on 08-04-2024 Eosinophils/100 WBC (Bld) 0.7 % 0-5 [facility] Erythrocyte distribution wid th (RBC) [Ratio]Ordered By: Jennifer Willard on 08-04-2024 Erythrocyte distribution width (RBC) [Entitic vol] 43.9 fL 35.1-43.9 [facility] Erythrocyte distribution wid th ratioOrdered By: Jennifer Willard on 08-04-2024 Erythrocyte distribution width (RBC) [Ratio] 13.4 % 11.6-14.6 [facility] Erythrocyte distribution wid th standard deviationOrdered By: Jennifer Willard on 08-04-2024 Erythrocyte distribution width (RBC) [Ratio] 43.9 fl 35.1-43.9 [facility] GFR/1.73 sq M.predicted keisha g non-blacks MDRD (S/P/Bld) [Vol rate/Area]Ordered By: Jennifer Willard on 08-04-2024 Estimated GFR (MDRD) Non-Af Amer 106 >60 [facility] Comment on above: mL/min/1.73m2 CKD-EP I Creatinine Equation (2020) Glomerular filtration rate ( GFR) estimation/1.73 sq m using serum, plasma, or whole bOrdered By: Jennifer Willard on 08-04-2024 GFR/1.73 sq M.predicted among non-blacks MDRD (S/P/Bld) [Vol rate/Area] 106 mL/min/{1.73_m2} >60 [facility] Comment on above: mL/min/1.73m2 CKD-EP I Creatinine Equation (2020) Hematocrit Auto (Bld) [Volum e fraction]Ordered By: Jennifer Willard on 08-04-2024 Hematocrit (Bld) [Volume fraction] 39.8 % 37-47 [facility] Hemoglobin measurementOrdere d By: Jennifer Willard on 08-04-2024 Hemoglobin (Bld) [Mass/Vol] 13.2 g/dL 12.0-15.0 [facility] Immature granulocytes/100 WB C Auto (Bld)Ordered By: Jennifer Willard on 08-04-2024 Immature granulocytes/100 WBC (Bld) 2.300 % High 0.0-0.9 [facility] Comment on above: IG% - Immature Granu locytes (promyelocytes, myelocytes and metamyelocytes) > 1% indicates that a LEFT SHIFT is Present. Laboratory - Chemistry and C hemistry - challengeOrdered By: Jennifer Willard on 08-04-2024 AST [Catalytic activity/Vol] 22 U/L <32 [facility] Lymphocytes Auto (Unsp spec) [#/Vol]Ordered By: Jennifer Willard on 08-04-2024 Lymphocytes (Bld) [#/Vol] 2.39 10*3/uL 0.83-4.51 [facility] Lymphocytes/100 WBC Auto (Un sp spec)Ordered By: Jennifer Willard on 08-04-2024 Lymphocytes/100 WBC (Bld) 17.6 % Low 19-41 [facility] MCV (mean corpuscular volume ) determinationOrdered By: Jennifer Willard on 08-04-2024 MCV (RBC) [Entitic vol] 90.0 fL 81-99 [facility] Mean corpuscular hemoglobin (MCH) determinationOrdered By: Jennifer Willard on 08-04-2024 MCH (RBC) [Entitic mass] 29.9 pg 27.0-32.0 [facility] Mean corpuscular hemoglobin concentration (MCHC) determinationOrdered By: Jennifer Willard on 08-04-2024 MCHC (RBC) [Mass/Vol] 33.2 g/dL 32-36 [facility] Mean platelet volume determi nationOrdered By: Jennifer Willard on 08-04-2024 Platelet mean volume (Bld) [Entitic vol] 11.6 fL 6.2-12.0 [facility] Monocyte percentageOrdered B y: Jennifer Willard on 08-04-2024 Monocytes/100 WBC (Bld) 5.8 % 0-10 [facility] Neutrophil percentageOrdered By: Jennifer Willard on 08-04-2024 Neutrophils/100 WBC (Bld) 73.1 % High 47-70 [facility] Nucleated red blood cell per centageOrdered By: Jennifer Willard on 08-04-2024 Nucleated RBC/100 WBC (Bld) [Ratio] 0 % 0-5 [facility] Photo Colorer Office Visit Reporton 08-04-2024 Photo Colorer Office Visit Report [facility] [address], [address] [place] [address] OFFICE VISIT Date of Service: 08/04/24 MR#: [id number] Acct: [id number] Name: LUCIANO KENDALL Rep #: [id number] : 2000 Provider: ANY dykes Age/Sex: 24/F Location[place] [facility] [place] Status: Signed Intake Vital Signs 07/07/24 15:11 08/04/24 10:40 Height 5 ft 8 in 5 ft 8 in Weight: 235 lb 6 oz BMI 35.8 BP 124/82 H Intake Visit Reasons: 18 wk ob Chief Complaint: 18 Week OB Melting Supervisor Required: No Is patient in pain?: No [...] Zika: Zika virus screening: Negative : No [facility] Medical History (Updated 08/04/24 @ 11:10 by Jennifer Willard ORDNANCE ENGINEER, ORDNANCE ENGINEER-C) Congenital spkekp-noqtbfd-mjlxv reflux Gallstones UTI (urinary tract infection) Asthma Surgical History Hx of cholecystectomy Hx of tonsillectomy Family History Father Diabetes Type 1 Aunt Thyroid disorder Maternal Mother Thyroid disorder enlarged Grandmother Breast cancer Paternal Social History adopted: No household members: significant other 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al status: 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 Normal [facility] Platelet countOrdered By: David Willard on 08-04-2024 Platelets (Bld) [#/Vol] 213 10*3/uL 150-450 [facility] Potassium (Unsp spec) [Mass/ Vol]Ordered By: Jennifer Willard on 08-04-2024 Potassium [Moles/Vol] 4.1 mmol/L 3.3-5.1 [facility] Potassium measurement (mass/ volume)Ordered By: Jennifer Willard on 08-04-2024 Potassium (Unsp spec) [Mass/Vol] 4.1 mmol/L 3.3-5.1 [facility] Protein+Creatinine Ratio,Uri neon 08-04-2024 PROT:CRE RATIO 68 mg/g CRE Normal 0-200 [facility] Comment on above: Performed By: #### L 500.4050, L501.0900 #### [facility] [address] [place], [address] Protein (U) [Mass/Vol] 11.5 mg/dL Normal 0.0-12.0 [facility] Comment on above: Performed By: #### L 500.4050, L501.0900 #### [facility] [address] [place], [address] UR CREAT 169.00 mg/dL Normal 28.00-217.00 [facility] Comment on above: Performed By: #### L 500.4050, L501.0900 #### [facility] [address] [place], [address] Protein/Creatinine (U) [Mass ratio]Ordered By: Jennifer Willard on 08-04-2024 Urine Protein/Creatinine Ratio 68 mg/g CRE 0-200 [facility] RBC Auto (Bld) [#/Vol]Ordere d By: Jennifer Willard on 08-04-2024 RBC (Bld) [#/Vol] 4.42 10*6/uL 4.2-5.4 [facility] Random urine creatinine mika urement (mass/volume)Ordered By: Jennifer Willard on 08-04-2024 Creatinine Unsp time (U) [Mass/Vol] 169.00 mg/dL 28.00-217.00 [facility] Serum creatinine measurement (mass/volume)Ordered By: Jennifer Willard on 08-04-2024 Creatinine [Mass/Vol] 0.79 mg/dL 0.70-1.20 [facility] Serum globulin measurementOr dered By: Jennifer Willard on 08-04-2024 Globulin (S) [Mass/Vol] 3.1 g/dL 2.2-4.2 [facility] Serum glucose measurement (m ass/volume)Ordered By: Jennifer Willard on 08-04-2024 Glucose [Mass/Vol] 91 mg/dL 70-99 [facility] Serum or plasma alanine ter[place] otransferase (ALT) measurementOrdered By: Jennifer Willard on 08-04-2024 ALT [Catalytic activity/Vol] 38 U/L High <35 [facility] Serum or plasma albumin mika urement (mass/volume)Ordered By: Jennifer Willard on 08-04-2024 Albumin [Mass/Vol] 3.8 g/dL 3.5-5.0 [facility] Serum or plasma albumin/glob ulin mass ratioOrdered By: Jennifer Willard on 08-04-2024 Albumin/Globulin [Mass ratio] 1.2 {ratio} 0.9-2.4 [facility] Serum or plasma alkaline lebron sphatase measurementOrdered By: Jennifer Willard on 08-04-2024 ALP [Catalytic activity/Vol] 52 U/L 35-104 [facility] Serum or plasma calcium mika urement (mass/volume)Ordered By: Jennifer Willard on 08-04-2024 Calcium [Mass/Vol] 9.3 mg/dL 7.6-11.0 [facility] Serum or plasma urea nitroge n measurement (mass/volume)Ordered By: Jennifer Willard on 08-04-2024 Urea nitrogen [Mass/Vol] 10 mg/dL 4-19 [facility] Sodium levelOrdered By: Constantine Willard on 08-04-2024 Sodium [Moles/Vol] 136 mmol/L 133-145 [facility] Total proteinOrdered By: Merlin Willard on 08-04-2024 Protein [Mass/Vol] 6.9 g/dL 5.9-8.4 [facility] Urine protein measurement (m ass/volume)Ordered By: Jennifer Willard on 08-04-2024 Protein (U) [Mass/Vol] 11.5 mg/dL 0.0-12.0 [facility] Urine protein/creatinine mas s ratioOrdered By: Jennifer Willard on 08-04-2024 Protein/Creatinine (U) [Mass ratio] 68 mg/g CRE 0-200 [facility] White blood cell (WBC) count Ordered By: Jennifer Willard on 08-04-2024 WBC (Bld) [#/Vol] 13.6 10*3/uL High 4.4-11.0 [facility] Absolute lymphocyte countOrd ered By: Susie Solomon on 07-07-2024 Lymphocytes Auto (Unsp spec) [#/Vol] 2.97 10*3/uL 0.83-4.51 [facility] Absolute neutrophil countOrd ered By: Susie Solomon on 07-07-2024 Neutrophils (Bld) [#/Vol] 8.9 10*3/uL High 2.0-7.7 [facility] Automated lymphocyte count a s percentage of total leukocytesOrdered By: Susie Solomon on 07-07-2024 Lymphocytes/100 WBC Auto (Unsp spec) 22.8 % 19-41 [facility] Basophil percentageOrdered B y: Susie Solomon on 07-07-2024 Basophils/100 WBC (Bld) 0.3 % 0-1 [facility] CBC W/Diff, Automatedon 06-27 Absolute Lymph 2.97 X10 3/uL Normal 0.83-4.51 [facility] Comment on above: Performed By: #### M 100.2200, L100.0100 #### [facility] [address] [place], [address] Absolute Neut 8.9 X10 3/uL High 2.0-7.7 [facility] Comment on above: Performed By: #### M 100.2200, L100.0100 #### [facility] [address] [place], [address] Basophils/100 WBC (Bld) 0.3 % Normal 0-1 [facility] Comment on above: Performed By: #### M 100.2200, L100.0100 #### [facility] [address] [place], [address] Eosinophils/100 WBC (Bld) 1.0 % Normal 0-5 [facility] Comment on above: Performed By: #### M 100.2200, L100.0100 #### [facility] [address] [place], [address] Erythrocyte distribution width (RBC) [Ratio] 13.0 % Normal 11.6-14.6 [facility] Comment on above: Performed By: #### M 100.2200, L100.0100 #### [facility] [address] [place], [address] Hematocrit (Bld) [Volume fraction] 37.1 % Normal 37-47 [facility] Comment on above: Performed By: #### M 100.2200, L100.0100 #### [facility] [address] [place], [address] Hemoglobin (Bld) [Mass/Vol] 12.6 g/dL Normal 12.0-15.0 [facility] Comment on above: Performed By: #### M 100.2200, L100.0100 #### [facility] [address] [place], [address] IG% 1.400 High 0.0-0.9 [facility] Comment on above: Result Comment: IG% - Immature Granulocytes (promyelocytes, myelocytes and metamyelocytes) > 1% indicates that a LEFT SHIFT is Present. Performed By: #### M 100.2200, L100.0100 #### [facility] [address] [place], [address] Lymphocytes/100 WBC (Bld) 22.8 % Normal 19-41 [facility] Comment on above: Performed By: #### M 100.2200, L100.0100 #### [facility] [address] [place], [address] MCH (RBC) [Entitic mass] 29.8 pg Normal 27.0-32.0 [facility] Comment on above: Performed By: #### M 100.2200, L100.0100 #### [facility] [address] [place], [address] MCHC (RBC) [Mass/Vol] 34.0 g/dL Normal 32-36 [facility] Comment on above: Performed By: #### M 100.2200, L100.0100 #### [facility] [address] [place], [address] MCV (RBC) [Entitic vol] 87.7 fL Normal 81-99 [facility] Comment on above: Performed By: #### M 100.2200, L100.0100 #### [facility] [address] [place], [address] Monocytes/100 WBC (Bld) 6.1 % Normal 0-10 [facility] Comment on above: Performed By: #### M 100.2199, L100.0100 #### [facility] [address] [place], [address] Neutrophils/100 WBC (Bld) 68.4 % Normal 47-70 [facility] Comment on above: Performed By: #### M 100.2199, L100.0100 #### [facility] [address] [place], [address] Nucleated RBC (Bld) [#/Vol] 0 10*3/uL Normal 0-5 [facility] Comment on above: Performed By: #### M 100.2199, L100.0100 #### [facility] [address] [place], [address] Platelet mean volume (Bld) [Entitic vol] 11.3 fL Normal 6.2-12.0 [facility] Comment on above: Performed By: #### M 100.2200, L100.0100 #### [facility] [address] [place], [address] Platelets (Bld) [#/Vol] 225 10*3/uL Normal 150-450 [facility] Comment on above: Performed By: #### M 100.2200, L100.0100 #### [facility] [address] [place], [address] RBC (Bld) [#/Vol] 4.23 10*6/uL Normal 4.2-5.4 [facility] Comment on above: Performed By: #### M 100.2200, L100.0100 #### [facility] [address] [place], [address] RDW SD 41.6 fl Normal 35.1-43.9 [facility] Comment on above: Performed By: #### M 100.2200, L100.0100 #### [facility] [address] [place], [address] WBC (Bld) [#/Vol] 13.0 10*3/uL High 4.4-11.0 [facility] Comment on above: Performed By: #### M 100.2200, L100.0100 #### [facility] [address] [place], [address] Eosinophil percentageOrdered By: Susie Solomon on 07-07-2024 Eosinophils/100 WBC (Bld) 1.0 % 0-5 [facility] Erythrocyte distribution wid th ratioOrdered By: Susie Solomon on 07-07-2024 Erythrocyte distribution width (RBC) [Ratio] 13.0 % 11.6-14.6 [facility] Erythrocyte distribution wid th standard deviationOrdered By: Susie Solomon on 07-07-2024 Erythrocyte distribution width (RBC) [Entitic vol] 41.6 fL 35.1-43.9 [facility] Erythrocyte distribution width (RBC) [Ratio] 41.6 fl 35.1-43.9 [facility] HBV surface Ag Ql (S)Ordered By: Susie Solomon on 07-07-2024 Hepatitis B Surface Antigen Non-Reactive Nonreactive [facility] Comment on above: Reactive: Presumptiv e evidence of HBV. Repeatedly reactive samples must be confirmed using a neutralization test ([employer] HBsAg Confirmatory Test)Non-Reactive: HBsAg not detected; does not exclude the possibility of exposure to HBV Hematocrit Auto (Bld) [Volum e fraction]Ordered By: Susie Solomon on 07-07-2024 Hematocrit (Bld) [Volume fraction] 37.1 % 37-47 [facility] Hemoglobin A1con 07-07-2024 HbA1c (Bld) [Mass fraction] 5.1 % Low <=5.6 [facility] Comment on above: Performed By: #### M 100.2200, L100.0100 #### [facility] [address] [place], [address] Hemoglobin A1c percentageOrd ered By: Susie Solomon on 07-07-2024 HbA1c (Bld) [Mass fraction] 5.1 % Low >5.7 [facility] Hemoglobin measurementOrdere d By: Susie Solomon on 07-07-2024 Hemoglobin (Bld) [Mass/Vol] 12.6 g/dL 12.0-15.0 [facility] Hepatitis C antibodyOrdered By: Susie Solomon on 07-07-2024 Hepatitis C Antibody Non-Reactive Nonreactive [facility] Comment on above: Reactive: Presumptiv e evidence of antibodies to HCV. Follow CDC recommendations for supplemental testing.Non-Reactive: Antibodies to HCV were not detected; does not exclude the possibility of exposure to HCVReactive Results are presumptive evidence of antibodies to HCV. Follow CDC recommendations for supplemental testing.Order confirmation testing: HCV Quant by PCR testing - HCVPCR #[id number] Non Reactive: < 0.8 Equivocal: >/= 0.8 to < 1.0 Reactive: >/= 1.0The CDC requires that a reactive/equivocal HCV antibody result be sent out for confirmation. HCV Quant by PCR testing. Immature granulocytes/100 WB C Auto (Bld)Ordered By: Susie Solomon on 07-07-2024 Immature granulocytes/100 WBC (Bld) 1.400 % High 0.0-0.9 [facility] Comment on above: IG% - Immature Granu locytes (promyelocytes, myelocytes and metamyelocytes) > 1% indicates that a LEFT SHIFT is Present. L3890.6006on 07-07-2024 HIV Non-Reactive Normal Nonreactive [facility] Comment on above: Result Comment: Non- Reactive Reactive Repeatedly reactive samples must be confirmed according to CDC recommended confirmatory algorithms. The subresults for either HIVAG or AHIV can be used as an aid in the selection of the confirmation algorithm for reactive samples. Send out specimens with Reactive results to [facility] for confirmation. Order the HIV antibody detection and differentiation: lc#[id number] Performed By: #### M 100.2200, L100.0100 #### [facility] [address] [facility] [address] L3890.6102on 07-07-2024 HEP B Surf Ag Non-Reactive Normal Nonreactive [facility] Comment on above: Result Comment: Reac tive: Presumptive evidence of HBV. Repeatedly reactive samples must be confirmed using a neutralization test ([employer] HBsAg Confirmatory Test) Non-Reactive: HBsAg not detected; does not exclude the possibility of exposure to HBV Performed By: #### M 100.2200, L100.0100 #### [facility] [address] [facility] [address] L3890.6301on 07-07-2024 Hepatitis C Ab Non-Reactive Normal Nonreactive [facility] Comment on above: Result Comment: Reac tive: Presumptive evidence of antibodies to HCV. Follow CDC recommendations for supplemental testing. Non-Reactive: Antibodies to HCV were not detected; does not exclude the possibility of exposure to HCV Reactive Results are presumptive evidence of antibodies to HCV. Follow CDC recommendations for supplemental testing. Order confirmation testing: HCV Quant by PCR testing - HCVPCR #[id number] Non Reactive: < 0.8 Equivocal: >/= 0.8 to < 1.0 Reactive: >/= 1.0 The CDC requires that a reactive/equivocal HCV antibody result be sent out for confirmation. HCV Quant by PCR testing. Performed By: #### M 100.2200, L100.0100 #### [facility] [address] [facility]. [facility] [address] L509.4006on 07-07-2024 Rubella IgG REAC Normal Nonreactive [facility] Comment on above: Result Comment: Anti body Result: Interpretation Non-Reactive: Non-Immune Reactive: Immune The following results were obtained with the Ele[employer]ys Rubella IgG assay. Results from assays of other manufacturers cannot be used interchangeably. Performed By: #### M 100.2200, L100.0100 #### [facility] [address] [facility]. [facility] [address] L509.8002on 07-07-2024 Syphilis Abs Non-Reactive Normal Nonreactive [facility] Comment on above: Performed By: #### M 100.2200, L100.0100 #### [facility] [address] [place], [address] Laboratory - Chemistry and C hemistry - challengeOrdered By: Nita Mcintosh on 07-07-2024 Glucose Ql (U) Negative [facility] - Microbiology an d Antimicrobial susceptibilityOrdered By: Susie Solomon on 07-07-2024 HBV surface Ag Ql (S) Non-Reactive Nonreactive [facility] Comment on above: Reactive: Presumptiv e evidence of HBV. Repeatedly reactive samples must be confirmed using a neutralization test ([employer] HBsAg Confirmatory Test)Non-Reactive: HBsAg not detected; does not exclude the possibility of exposure to HBV Laboratory - UrinalysisOrder ed By: Nita Mcintosh on 07-07-2024 Protein Ql (U) Negative [facility] Lymphocytes Auto (Unsp spec) [#/Vol]Ordered By: Susie Solomon on 07-07-2024 Lymphocytes (Bld) [#/Vol] 2.97 10*3/uL 0.83-4.51 [facility] Lymphocytes/100 WBC Auto (Un sp spec)Ordered By: Susie Solomon on 07-07-2024 Lymphocytes/100 WBC (Bld) 22.8 % 19-41 [facility] MCV (mean corpuscular volume ) determinationOrdered By: Susie Solomon on 07-07-2024 MCV (RBC) [Entitic vol] 87.7 fL 81-99 [facility] Mean corpuscular hemoglobin (MCH) determinationOrdered By: Susie Solomon on 07-07-2024 MCH (RBC) [Entitic mass] 29.8 pg 27.0-32.0 [facility] Mean corpuscular hemoglobin concentration (MCHC) determinationOrdered By: Susie Solomon on 07-07-2024 MCHC (RBC) [Mass/Vol] 34.0 g/dL 32-36 [facility] Mean platelet volume determi nationOrdered By: Susie Solomon on 07-07-2024 Platelet mean volume (Bld) [Entitic vol] 11.3 fL 6.2-12.0 [facility] Miscellaneous procedureOrder ed By: Susie Solomon on 07-07-2024 Miscellaneous Test Comment SEE SCANNED REPORT [facility] Monocyte percentageOrdered B y: Susie Solomon on 07-07-2024 Monocytes/100 WBC (Bld) 6.1 % 0-10 [facility] NATERAon 07-07-2024 NATURA SEE SCANNED REPORT Normal [facility] Comment on above: Order Comment: Comme nts: NIPT with Gender Performed By: #### M 100.2200, L100.0100 #### [facility] [address] [place], [place], [address] Neutrophil percentageOrdered By: Susie Solomon on 07-07-2024 Neutrophils/100 WBC (Bld) 68.4 % 47-70 [facility] No Panel InformationOrdered By: Susie Solomon on 07-07-2024 HIV (1&2) Antibody Non-Reactive Nonreactive [facility] Comment on above: Non-ReactiveReactive Repeatedly reactive samples must be confirmed according to CDC recommended confirmatory algorithms. The subresults for either HIVAG or AHIV can be used as an aid in the selection of the confirmation algorithm for reactive samples.Send out specimens with Reactive results to [facility] for confirmation.Order the HIV antibody detection and differentiation: #[id number] Nucleated red blood cell per centageOrdered By: Susie Solomon on 07-07-2024 Nucleated RBC/100 WBC (Bld) [Ratio] 0 % 0-5 [facility] Photo Colorer Office Visit Reporton 07-07-2024 Photo Colorer Office Visit Report [facility] [address], [address] [place] [address] OFFICE VISIT Date of Service: 07/07/24 MR#: [id number] Acct: [id number] Name: LUCIANO KENDALL Rep #: [id number] : 2000 Provider: Dr. Nita motley MD Age/Sex: 24/F [place] [facility] Status: Signed Intake Vital Signs 05/04/24 14:48 06/04/24 13:01 07/07/24 15:11 Height 5 ft 8 in 5 ft 8 in 5 ft 8 in Weight: 226 lb 4 oz 228 lb 8 oz BMI 34.4 34.7 BP 128/82 H 131/84 H Intake Visit Reasons: 13wk OB Melting Supervisor Required: No Is patient in pain?: No [...] : No PFSH PFSH Medical History Congenital cffcmb-aupuwcz-iymqx reflux Gallstones UTI (urinary tract infection) Asthma Surgical History Hx of cholecystectomy Hx of tonsillectomy Family History Father Diabetes Type 1 Aunt Thyroid disorder Maternal Mother Thyroid disorder enlarged Grandmother Breast cancer Paternal Social History adopted: No household members: significant other 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al status: 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 (more content not included)... Normal [facility] Platelet countOrdered By: Diego Solomon on 07-07-2024 Platelets (Bld) [#/Vol] 225 10*3/uL 150-450 [facility] RBC Auto (Bld) [#/Vol]Ordere d By: Susie Solomon on 07-07-2024 RBC (Bld) [#/Vol] 4.23 10*6/uL 4.2-5.4 [facility] Rubella immune status determ ination by IgG antibody assayOrdered By: Susie Solomon on 07-07-2024 Rubella IgG Antibody REAC Nonreactive [facility] Comment on above: Antibody Result: Int erpretationNon-Reactive: Non-ImmuneReactive: ImmuneThe following results were obtained with the [employer]ys Rubella IgG assay. Results from assays of other manufacturers cannot be used interchangeably. T. pallidum abOrdered By: Diego Solomon on 07-07-2024 Syphilis Total Antibody Non-Reactive Nonreactiv e [facility] Type AND Screenon 07-07-2024 ABO and Rh group Nom (Bld) Blood group O Rh(D) positive Normal [facility] Comment on above: Order Comment: PN Performed By: #### M 100.2200, L100.0100 #### [facility] [address] [place], [address] White blood cell (WBC) count Ordered By: Susie Solomon on 07-07-2024 WBC (Bld) [#/Vol] 13.0 10*3/uL High 4.4-11.0 [facility] Chlamydia/GC NILDA aptimaon CHLAMY,NUC ACID Negative Normal Negative [facility] Comment on above: Performed By: #### M 100.2200, L100.0100 #### [facility] [address] [place], [address] GC BY NUC ACID Negative Normal Negative [facility] Comment on above: Result Comment: Perf ormed at: =G - [facility] [id number] Public Health Teacher: Lisa Morris MD, Phone: [phone] Performed By: #### M 100.2200, L100.0100 #### [facility] [address] [place], [address] Urine Cultureon 06-07-2024 URC Below infection level. Mixed Gram Positive Organisms [place] Count <1000 [facility] Mixed contaminants. Submit a new specimen if indicated. Normal [facility] Comment on above: Performed By: #### M 100.2200, L100.0100 #### [facility] [address] [place], [address] C. trachomatis rRNA NILDA+prob e Ql (Unsp spec)Ordered By: Susie Solomon on 06-04-2024 Chlamydia DNA (NILDA) Negative Negative [facility] Chlamydia trachomatis rRNA d etection by probe and target amplification methodOrdered By: Susie Solomon on 06-04-2024 C. trachomatis rRNA NILDA+probe Ql (Unsp spec) Negative Negative [facility] Neisseria gonorrhoeae nuclei c acid detection by amplified probe techniqueOrdered By: Susie Solomon on 06-04-2024 N. gonorrhoeae DNA NILDA+probe Ql (Unsp spec) Negative Negative [facility] Comment on above: Performed at: =[address] [place], [place] [id number] Director: Lisa Morris MD, Phone: [phone] Photo Colorer Office Visit Reporton 06-04-2024 Photo Colorer Office Visit Report [facility] [address], [address] [place] [address] OFFICE VISIT Date of Service: 06/04/24 MR#: [id number] Acct: [id number] Name: LUCIANO KENDALL Rep #: [id number] : 2000 Provider: ALEXANDRA Coughlin ams Age/Sex: 23/F Location[place] [facility] Status: Signed Intake Vital Signs 04/15/24 11:31 [...] : Yes PFSH PFSH Medical History Congenital getplu-jkapnpw-vukyx reflux Gallstones UTI (urinary tract infection) Asthma Surgical History Hx of cholecystectomy Hx of tonsillectomy Family History Father Diabetes Type 1 Aunt Thyroid disorder Maternal Mother Thyroid disorder enlarged Grandmother Breast cancer Paternal Social History adopted: No household members: significant other 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al status: 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 Normal [facility] Urine cultureOrdered By: Singh Solomon on 06-04-2024 Bacteria identified Cx Nom (U) Positive Abnormal [facility] PAP I-G w/rfx hrHPV-Aptimaon 04-24-2024 ADEQ Comment Normal . [facility] Comment on above: Order Comment: Speci men Comment: [id number] Specimen Comment: Source.............Cervix;Endocervix Specimen Comment: No. of containers..01 ThinPrep Vial Result Comment: Sati sfactory for evaluation. No endocervical component is identified. Performed By: #### L 7400.0353 #### [facility] [address] [place], [address] COMM . Normal . [facility] Comment on above: Order Comment: Speci men Comment: [id number] Specimen Comment: Source.............Cervix;Endocervix Specimen Comment: No. of containers..01 ThinPrep Vial Performed By: #### L 7400.0353 #### [facility] [address] [place], [place], [address] COMMENT Comment Normal . [facility] Comment on above: Order Comment: Speci men Comment: [id number] Specimen Comment: Source.............Cervix;Endocervix Specimen Comment: No. of containers..01 ThinPrep Vial Result Comment: This liquid based ThinPrep(R) pap test was screened with the use of an image guided system. Performed By: #### L 7400.0353 #### [facility] [address] [place], [place], [address] DIAG Comment Normal . [facility] Comment on above: Order Comment: Speci men Comment: [id number] Specimen Comment: Source.............Cervix;Endocervix Specimen Comment: No. of containers..01 ThinPrep Vial Result Comment: NEGA TIVE FOR INTRAEPITHELIAL LESION OR MALIGNANCY. Performed By: #### L 7400.0353 #### [facility] [address] [place], [address] HPV RFLX Comment Normal . [facility] Comment on above: Order Comment: Speci men Comment: [id number] Specimen Comment: Source.............Cervix;Endocervix Specimen Comment: No. of containers..01 ThinPrep Vial Result Comment: The HPV DNA reflex criteria were not met with this specimen result therefore, no HPV testing was performed. Performed at: [address] [id number] Public Health Teacher: Lisa Morris MD, Phone: [phone] Performed By: #### L 7400.0353 #### [facility] [address] [place], [address] PAPSMR Comment Normal . [facility] Comment on above: Order Comment: Speci men Comment: [id number] Specimen Comment: Source.............Cervix;Endocervix Specimen Comment: No. of [...] occur. Performed By: #### L 7400.0353 #### [facility] [address] [place], [address] PERFORM Comment Normal . [facility] Comment on above: Order Comment: Speci men Comment: [id number] Specimen Comment: Source.............Cervix;Endocervix Specimen Comment: No. of containers..01 ThinPrep Vial Result Comment: Karla Archer, Wind Site Manager (ASCP) Performed By: #### L 7400.0353 #### [facility] [address] [place], [address] Package Sealer Cyto stain Nom (C vx/Vag) [ID]Ordered By: Magda Franklin on 04-15-2024 Pap Smear Performed By Comment . [facility] Comment on above: Karla Archer, Cytote chnologist (ASCP) Cytology report Cyto stain D oc (Cvx/Vag)Ordered By: Magda Franklin on 04-15-2024 Thin Prep Pap Smear Comment . [facility] Comment on above: The Pap smear is a s creening test designed to aid in thedetection of premalignant and malignant conditions of theuterine cervix. It is not a diagnostic procedure andshould not be used as the sole means of detecting cervicalcancer. Both false-positive and false-negative reports dooccur. Image-guided ThinPrep PapOrd ered By: Magda Franklin on 04-15-2024 Pap Smear Note Comment . [facility] Comment on above: This liquid based Th inPrep(R) pap test was screened withthe use of an image guided system. Image-guided liquid-based Pa pOrdered By: Magda Franklin on 04-15-2024 Pap Smear Diagnosis Comment . [facility] Comment on above: NEGATIVE FOR INTRAEP ITHELIAL LESION OR MALIGNANCY. Image-guided liquid-based ce rvical Pap w high-risk HPV+reflex to HPV 16+18Ordered By: Magda Franklin on 04-15-2024 Human Papillomavirus Screen Comment . [facility] Comment on above: The HPV DNA reflex c nava were not met with this specimenresult therefore, no HPV testing was performed.Performed at: - [facility] [id number] Director: Lisa Morris MD, Phone: [phone] Kidney and Bladderon 024 Kidney and Bladder [facility] Imaging Services [address] [place], [place] [address] Kidney and Bladder MR#: [id number] Acct: [id number] Name: LUCIANO KENDALL Rep #: [id number] : 2000 F 23 From: Jemal Grimes DO PCP: Dr. Donald Waller MD Status: REG CLI Study: Kidney and Bladder Date of Exam: 04/15/24 Exam# [id number] Ordering Dr: Donald Waller MD [id number] INDICATION: UTI EXAMINATION: Ultrasound US Kidney(s) complete [...] 23:21 EST Reading Location ID and State: [facility] / [place] Tel [phone], Service support , CC: Dr. 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 Normal [facility] Service comment (Unsp spec) [Interp]Ordered By: Magda Franklin on 04-15-2024 Pap Smear Comment (3) . . [facility] Basic Metabolic Profile (BMP )on 04-10-2024 BUN/CRE 9.6 RATIO Low 10-20 [facility] Comment on above: Order Comment: Order Date: 04/06/24Order Info: 666-04 - BMP Performed By: #### M 100.2200, L100.0100 #### [facility] [address] [place], [address] [place],Total 9.5 mg/dL Normal 8.5-10.1 [facility] Comment on above: Order Comment: Order Date: 04/06/24Order Info: 666-04 - BMP Performed By: #### M 100.2200, L100.0100 #### [facility] [address] [place], [address] Chloride [Moles/Vol] 108 mmol/L High 98-107 [facility] Comment on above: Order Comment: Order Date: 04/06/24Order Info: 666-04 - BMP Performed By: #### M 100.2200, L100.0100 #### [facility] [address] [place], [address] CO2 [Moles/Vol] 25.0 mmol/L Normal 21.0-32.0 [facility] Comment on above: Order Comment: Order Date: 04/06/24Order Info: 666-04 - BMP Performed By: #### M 100.2200, L100.0100 #### [facility] [address] [place], [address] Creatinine [Mass/Vol] 1.14 mg/dL High 0.55-1.02 [facility] Comment on above: Order Comment: Order Date: 04/06/24Order Info: 666-04 - BMP Result Comment: The validity of the calculated GFR GFRAA in patients over 70 years has not been determined. Clinical correlation is essential. Performed By: #### M 100.2200, L100.0100 #### [facility] [address] [place], [address] EST GFR - AA 75 mL/min Normal >60 [facility] Comment on above: Order Comment: Order Date: 04/06/24Order Info: 06 - BMP Result Comment: Afri can Eritrean GFR Calc Performed By: #### M 100.2200, L100.0100 #### [facility] [address] [place], [address] GAP 6 Normal 5-15 [facility] Comment on above: Order Comment: Order Date: 04/06/24Order Info: 666-04 - BMP Performed By: #### M 100.2200, L100.0100 #### [facility] [address] [place], [address] GFR/1.73 sq M.predicted among non-blacks MDRD (S/P/Bld) [Vol rate/Area] 62 mL/min/{1.73_m2} Normal >60 [facility] Comment on above: Order Comment: Order Date: 04/06/24Order Info: 666-04 - BMP Result Comment: Non- GFR Calc Performed By: #### M 100.2200, L100.0100 #### [facility] [address] [place], [address] Glucose [Mass/Vol] 93 mg/dL Normal 74-106 [facility] Comment on above: Order Comment: Order Date: 04/06/24Order Info: 666-04 - BMP Performed By: #### M 100.2200, L100.0100 #### [facility] [address] [place], [address] Potassium [Moles/Vol] 4.2 mmol/L Normal 3.5-5.1 [facility] Comment on above: Order Comment: Order Date: 04/06/24Order Info: 666-04 - BMP Performed By: #### M 100.2200, L100.0100 #### [facility] [address] [place], [address] Sodium [Moles/Vol] 139 mmol/L Normal 136-145 [facility] Comment on above: Order Comment: Order Date: 04/06/24Order Info: 0667-1 - BMP Performed By: #### M 100.2200, L100.0100 #### [facility] [address] [place], [address] Urea nitrogen [Mass/Vol] 11 mg/dL Normal 7-18 [facility] Comment on above: Order Comment: Order Date: 04/06/24Order Info: 0667-1 - BMP Performed By: #### M 100.2200, L100.0100 #### [facility] [address] [place], [address] Blood urea nitrogen (BUN)/cr eatinine ratioOrdered By: Donald Waller on 04-10-2024 Urea nitrogen/Creatinine [Mass ratio] 9.6 mg/mg Low 10-20 [facility] Carbon dioxide measurementOr dered By: Donald Waller on 04-10-2024 CO2 [Moles/Vol] 25.0 mmol/L 21.0-32.0 [facility] Chloride measurementOrdered By: Donald Waller on 04-10-2024 Chloride [Moles/Vol] 108 mmol/L High 98-107 [facility] Estimated glomerular filtrat ion rate (GFR) AmericanOrdered By: Donald Waller on 04-10-2024 Estimated GFR (MDRD) Amer 75 mL/min >60 [facility] Comment on above: GFR Calc Glomerular filtration rate ( GFR) estimationOrdered By: Donald Waller on 04-10-2024 Estimated GFR (MDRD) Non-Af Amer 62 mL/min >60 [facility] Comment on above: Non- GFR Calc Glucose measurementOrdered B y: Donald Waller on 04-10-2024 Glucose [Mass/Vol] 93 mg/dL 74-106 [facility] Potassium measurementOrdered By: Donald Waller on 04-10-2024 Potassium [Moles/Vol] 4.2 mmol/L 3.5-5.1 [facility] Serum anion gap measurementO rdered By: Donald Waller on 04-10-2024 Anion gap [Moles/Vol] 6 mmol/L 5-15 [facility] Serum or plasma calcium mika urement (mass/volume)Ordered By: Donald Waller on 04-10-2024 Calcium [Mass/Vol] 9.5 mg/dL 8.5-10.1 [facility] Serum or plasma creatinine m easurement (mass/volume)Ordered By: Donald Waller on 04-10-2024 Creatinine [Mass/Vol] 1.14 mg/dL High 0.55-1.02 [facility] Comment on above: The validity of the calculated GFR & GFRAA in patients over 70 years has not been determined. Clinical correlation is essential. Serum or plasma urea nitroge n measurement (mass/volume)Ordered By: Donald Waller on 04-10-2024 Urea nitrogen [Mass/Vol] 11 mg/dL 7-18 [facility] Sodium levelOrdered By: Donald Waller on 04-10-2024 Sodium [Moles/Vol] 139 mmol/L 136-145 [facility] Absolute neutrophil countOrd ered By: Donald Waller on 04-03-2024 Neutrophils (Bld) [#/Vol] 4.1 10*3/uL 2.0-7.7 [facility] Albumin to globulin ratioOrd ered By: Donald Waller on 04-03-2024 Albumin/Globulin [Mass ratio] 1.2 {ratio} 0.9-2.4 [facility] Basophil percentageOrdered B y: Donald Waller on 04-03-2024 Basophils/100 WBC (Bld) 0.5 % 0-1 [facility] Bilirubin Test strip Ql (U)O rdered By: Donald Waller on 04-03-2024 Bilirubin Ql (U) Negative Negative [facility] Bilirubin, totalOrdered By: Donald Waller on 04-03-2024 Bilirubin [Mass/Vol] 0.40 mg/dL 0.20-1.00 [facility] Comment on above: For patients on eltr ombopag therapy, use of Dimension Hiram TBIL is not recommended. Blood urea nitrogen (BUN)/cr eatinine ratioOrdered By: Donald Waller on 04-03-2024 Urea nitrogen/Creatinine [Mass ratio] 14.5 mg/mg 10-20 [facility] CBC W/Diff, Automatedon 12-0 -2023 Absolute Lymph 2.63 X10 3/uL Normal 0.83-4.51 [facility] Comment on above: Order Comment: Order Date: 04/03/24Order Info: 0184-1 - CBCD Performed By: #### M 100.2200, L100.0100 #### [facility] [address] [place], [address] Absolute Neut 4.1 X10 3/uL Normal 2.0-7.7 [facility] Comment on above: Order Comment: Order Date: 04/03/24Order Info: 0184-1 - CBCD Performed By: #### M 100.2200, L100.0100 #### [facility] [address] [place], [address] Basophils/100 WBC (Bld) 0.5 % Normal 0-1 [facility] Comment on above: Order Comment: Order Date: 04/03/24Order Info: 0184-1 - CBCD Performed By: #### M 100.2200, L100.0100 #### [facility] [address] [place], [address] Eosinophils/100 WBC (Bld) 1.6 % Normal 0-5 [facility] Comment on above: Order Comment: Order Date: 04/03/24Order Info: 0184-1 - CBCD Performed By: #### M 100.2200, L100.0100 #### [facility] [address] [place], [address] Erythrocyte distribution width (RBC) [Ratio] 12.1 % Normal 11.6-14.6 [facility] Comment on above: Order Comment: Order Date: 04/03/24Order Info: 0184-1 - CBCD Performed By: #### M 100.2200, L100.0100 #### [facility] [address] [place], [address] Hematocrit (Bld) [Volume fraction] 39.2 % Normal 37-47 [facility] Comment on above: Order Comment: Order Date: 04/03/24Order Info: 018- - CBCD Performed By: #### M 100.2200, L100.0100 #### [facility] [address] [place], [address] Hemoglobin (Bld) [Mass/Vol] 12.8 g/dL Normal 12.0-15.0 [facility] Comment on above: Order Comment: Order Date: 04/03/24Order Info: 183- - CBCD Performed By: #### M 100.2200, L100.0100 #### [facility] [address] [place], [address] IG% 0.400 Normal 0.0-0.9 [facility] Comment on above: Order Comment: Order Date: 04/03/24Order Info: 018- - CBCD Result Comment: IG% - Immature Granulocytes (promyelocytes, myelocytes and metamyelocytes) > 1% indicates that a LEFT SHIFT is Present. Performed By: #### M 100.2200, L100.0100 #### [facility] [address] [place], [address] Lymphocytes/100 WBC (Bld) 35.3 % Normal 19-41 [facility] Comment on above: Order Comment: Order Date: 04/03/24Order Info: 018- - CBCD Performed By: #### M 100.2200, L100.0100 #### [facility] [address] [place], [address] MCH (RBC) [Entitic mass] 29.3 pg Normal 27.0-32.0 [facility] Comment on above: Order Comment: Order Date: 04/03/24Order Info: 018- - CBCD Performed By: #### M 100.2200, L100.0100 #### [facility] [address] [place], [address] MCHC (RBC) [Mass/Vol] 32.7 g/dL Normal 32-36 [facility] Comment on above: Order Comment: Order Date: 04/03/24Order Info: 0184-1 - CBCD Performed By: #### M 100.2200, L100.0100 #### [facility] [address] [place], [address] MCV (RBC) [Entitic vol] 89.7 fL Normal 81-99 [facility] Comment on above: Order Comment: Order Date: 04/03/24Order Info: 0184-1 - CBCD Performed By: #### M 100.2200, L100.0100 #### [facility] [address] [place], [address] Monocytes/100 WBC (Bld) 6.7 % Normal 0-10 [facility] Comment on above: Order Comment: Order Date: 04/03/24Order Info: 0184-1 - CBCD Performed By: #### M 100.2200, L100.0100 #### [facility] [address] [place], [address] Neutrophils/100 WBC (Bld) 55.5 % Normal 47-70 [facility] Comment on above: Order Comment: Order Date: 04/03/24Order Info: 0184-1 - CBCD Performed By: #### M 100.2200, L100.0100 #### [facility] [address] [place], [address] Nucleated RBC (Bld) [#/Vol] 0 10*3/uL Normal 0-5 [facility] Comment on above: Order Comment: Order Date: 04/03/24Order Info: 0184-1 - CBCD Performed By: #### M 100.2200, L100.0100 #### [facility] [address] [place], [address] Platelet mean volume (Bld) [Entitic vol] 10.8 fL Normal 6.2-12.0 [facility] Comment on above: Order Comment: Order Date: 04/03/24Order Info: 4-1 - CBCD Performed By: #### M 100.2200, L100.0100 #### [facility] [address] [place], [address] Platelets (Bld) [#/Vol] 248 10*3/uL Normal 150-450 [facility] Comment on above: Order Comment: Order Date: 04/03/24Order Info: 183- - CBCD Performed By: #### M 100.2200, L100.0100 #### [facility] [address] [place], [address] RBC (Bld) [#/Vol] 4.37 10*6/uL Normal 4.2-5.4 [facility] Comment on above: Order Comment: Order Date: 04/03/24Order Info: 183- - CBCD Performed By: #### M 100.2200, L100.0100 #### [facility] [address] [place], [address] RDW SD 40.1 fl Normal 35.1-43.9 [facility] Comment on above: Order Comment: Order Date: 04/03/24Order Info: 0184-1 - CBCD Performed By: #### M 100.2200, L100.0100 #### [facility] [address] [place], [address] WBC (Bld) [#/Vol] 7.5 10*3/uL Normal 4.4-11.0 [facility] Comment on above: Order Comment: Order Date: 04/03/24Order Info: 0184-1 - CBCD Performed By: #### M 100.2200, L100.0100 #### [facility] [address] [place], [address] Carbon dioxide measurementOr dered By: Donald Waller on 04-03-2024 CO2 [Moles/Vol] 27.0 mmol/L 21.0-32.0 [facility] Chloride measurementOrdered By: Donald Waller on 04-03-2024 Chloride [Moles/Vol] 109 mmol/L High 98-107 [facility] Comprehensive Metabolic Prof ilon 04-03-2024 Albumin [Mass/Vol] 4.1 g/dL Normal 3.2-5.0 [facility] Comment on above: Order Comment: Order Date: 04/03/24Order Info: 0786-1 - CMP Performed By: #### M 100.2200, L100.0100 #### [facility] [address] [place], [address] Albumin/Globulin [Mass ratio] 1.2 {ratio} Normal 0.9-2.4 [facility] Comment on above: Order Comment: Order Date: 04/03/24Order Info: 0786-1 - CMP Performed By: #### M 100.2200, L100.0100 #### [facility] [address] [place], [address] ALK P 54 U/L Normal 45-117 [facility] Comment on above: Order Comment: Order Date: 04/03/24Order Info: 0786-1 - CMP Performed By: #### M 100.2200, L100.0100 #### [facility] [address] [place], [address] ALT [Catalytic activity/Vol] 28 U/L Normal 13-56 [facility] Comment on above: Order Comment: Order Date: 04/03/24Order Info: 0786-1 - CMP Performed By: #### M 100.2200, L100.0100 #### [facility] [address] [place], [address] AST [Catalytic activity/Vol] 20 U/L Normal 15-37 [facility] Comment on above: Order Comment: Order Date: 04/03/24Order Info: 0786-1 - CMP Performed By: #### M 100.2200, L100.0100 #### [facility] [address] [place], [address] Bilirubin [Mass/Vol] 0.40 mg/dL Normal 0.20-1.00 [facility] Comment on above: Order Comment: Order Date: 04/03/24Order Info: 0786-1 - CMP Result Comment: For patients on eltrombopag therapy, use of Dimension Hiram TBIL is not recommended. Performed By: #### M 100.2200, L100.0100 #### [facility] [address] [place], [address] BUN/CRE 14.5 RATIO Normal 10-20 [facility] Comment on above: Order Comment: Order Date: 04/03/24Order Info: 0786-1 - CMP Performed By: #### M 100.2200, L100.0100 #### [facility] [address] [place], [address] CA,Total 9.1 mg/dL Normal 8.5-10.1 [facility] Comment on above: Order Comment: Order Date: 04/03/24Order Info: 0786-1 - CMP Performed By: #### M 100.2200, L100.0100 #### [facility] [address] [place], [address] Chloride [Moles/Vol] 109 mmol/L High 98-107 [facility] Comment on above: Order Comment: Order Date: 04/03/24Order Info: 0786-1 - CMP Performed By: #### M 100.2200, L100.0100 #### [facility] [address] [place], [address] CO2 [Moles/Vol] 27.0 mmol/L Normal 21.0-32.0 [facility] Comment on above: Order Comment: Order Date: 04/03/24Order Info: 0786-1 - CMP Performed By: #### M 100.2200, L100.0100 #### [facility] [address] [place], [address] Creatinine [Mass/Vol] 1.10 mg/dL High 0.55-1.02 [facility] Comment on above: Order Comment: Order Date: 04/03/24Order Info: 0786- - CMP Result Comment: The validity of the calculated GFR GFRAA in patients over 70 years has not been determined. Clinical correlation is essential. Performed By: #### M 100.2200, L100.0100 #### [facility] [address] [place], [address] EST GFR - AA 78 mL/min Normal >60 [facility] Comment on above: Order Comment: Order Date: 04/03/24Order Info: 0786- - CMP Result Comment: Afri can Eritrean GFR Calc Performed By: #### M 100.2200, L100.0100 #### [facility] [address] [place], [address] GAP 4 Low 5-15 [facility] Comment on above: Order Comment: Order Date: 04/03/24Order Info: 0786- - CMP Performed By: #### M 100.2200, L100.0100 #### [facility] [address] [place], [address] GFR/1.73 sq M.predicted among non-blacks MDRD (S/P/Bld) [Vol rate/Area] 64 mL/min/{1.73_m2} Normal >60 [facility] Comment on above: Order Comment: Order Date: 04/03/24Order Info: 0786- - CMP Result Comment: Non- GFR Calc Performed By: #### M 100.2200, L100.0100 #### [facility] [address] [place], [address] Globulin (S) [Mass/Vol] 3.4 g/dL Normal 2.2-4.2 [facility] Comment on above: Order Comment: Order Date: 04/03/24Order Info: 0786-1 - CMP Performed By: #### M 100.2200, L100.0100 #### [facility] [address] [place], [address] Glucose [Mass/Vol] 77 mg/dL Normal 74-106 [facility] Comment on above: Order Comment: Order Date: 04/03/24Order Info: 0786-1 - CMP Performed By: #### M 100.2200, L100.0100 #### [facility] [address] [place], [address] Potassium [Moles/Vol] 3.8 mmol/L Normal 3.5-5.1 [facility] Comment on above: Order Comment: Order Date: 04/03/24Order Info: 0786-1 - CMP Performed By: #### M 100.2200, L100.0100 #### [facility] [address] [place], [address] Sodium [Moles/Vol] 140 mmol/L Normal 136-145 [facility] Comment on above: Order Comment: Order Date: 04/03/24Order Info: 0786-1 - CMP Performed By: #### M 100.2200, L100.0100 #### [facility] [address] [place], [address] T PROT 7.5 g/dL Normal 6.4-8.2 [facility] Comment on above: Order Comment: Order Date: 04/03/24Order Info: 0786-1 - CMP Performed By: #### M 100.2200, L100.0100 #### [facility] [address] [place], [address] Urea nitrogen [Mass/Vol] 16 mg/dL Normal 7-18 [facility] Comment on above: Order Comment: Order Date: 04/03/24Order Info: 0786-1 - CMP Performed By: #### M 100.7866, L100.0100 #### [facility] [address] [place], [address] Eosinophil percentageOrdered By: Donald Waller on 04-03-2024 Eosinophils/100 WBC (Bld) 1.6 % 0-5 [facility] Epithelial cells.squamous LM Ql (Urine sed)Ordered By: Donald Waller on 04-03-2024 Epithelial cells.squamous LM.HPF (Urine sed) [#/Area] 0 /[HPF] 5-10 [facility] Erythrocyte distribution wid th ratioOrdered By: Donald Waller on 04-03-2024 Erythrocyte distribution width (RBC) [Ratio] 12.1 % 11.6-14.6 [facility] Erythrocyte distribution wid th standard deviationOrdered By: Donald Waller on 04-03-2024 Erythrocyte distribution width (RBC) [Entitic vol] 40.1 fL 35.1-43.9 [facility] Estimated glomerular filtrat ion rate (GFR) AmericanOrdered By: Donald Waller on 04-03-2024 Estimated GFR (MDRD) Amer 78 mL/min >60 [facility] Comment on above: GFR Calc Glomerular filtration rate ( GFR) estimationOrdered By: Donald Waller on 04-03-2024 Estimated GFR (MDRD) Non-Af Amer 64 mL/min >60 [facility] Comment on above: Non- GFR Calc Glucose Ql (U)Ordered By: Chantal Waller on 04-03-2024 Urine Glucose (UA) Normal mg/dl Normal [facility] Glucose measurementOrdered B y: Donald Waller on 04-03-2024 Glucose [Mass/Vol] 77 mg/dL 74-106 [facility] Hematocrit Auto (Bld) [Volum e fraction]Ordered By: Donald Waller on 04-03-2024 Hematocrit (Bld) [Volume fraction] 39.2 % 37-47 [facility] Hemoglobin measurementOrdere d By: Donald Waller on 04-03-2024 Hemoglobin (Bld) [Mass/Vol] 12.8 g/dL 12.0-15.0 [facility] Immature granulocytes/100 WB C Auto (Bld)Ordered By: Donald Waller on 04-03-2024 Immature granulocytes/100 WBC (Bld) 0.400 % 0.0-0.9 [facility] Comment on above: IG% - Immature Granu locytes (promyelocytes, myelocytes and metamyelocytes) > 1% indicates that a LEFT SHIFT is Present. Ketones Test strip Ql (U)Ord ered By: Donald Waller on 04-03-2024 Ketones Ql (U) Negative Negative [facility] - Chemistry and C hemistry - challengeOrdered By: Donald Waller on 04-03-2024 AST [Catalytic activity/Vol] 20 U/L 15-37 [facility] Lymphocytes Auto (Unsp spec) [#/Vol]Ordered By: Donald Waller on 04-03-2024 Lymphocytes (Bld) [#/Vol] 2.63 10*3/uL 0.83-4.51 [facility] Lymphocytes/100 WBC Auto (Un sp spec)Ordered By: Donald Waller on 04-03-2024 Lymphocytes/100 WBC (Bld) 35.3 % 19-41 [facility] MCV (mean corpuscular volume ) determinationOrdered By: Donald Waller on 04-03-2024 MCV (RBC) [Entitic vol] 89.7 fL 81-99 [facility] Mean corpuscular hemoglobin (MCH) determinationOrdered By: Donald Waller on 04-03-2024 MCH (RBC) [Entitic mass] 29.3 pg 27.0-32.0 [facility] Mean corpuscular hemoglobin concentration (MCHC) determinationOrdered By: Donald Waller on 04-03-2024 MCHC (RBC) [Mass/Vol] 32.7 g/dL 32-36 [facility] Mean platelet volume determi nationOrdered By: Donald Waller on 04-03-2024 Platelet mean volume (Bld) [Entitic vol] 10.8 fL 6.2-12.0 [facility] Microscopic analysis of urin e for red blood cells (RBC)Ordered By: Donald Waller on 04-03-2024 Urine RBC 0 SEEN /hpf 0-5 [facility] Monocyte percentageOrdered B y: Donald Waller on 04-03-2024 Monocytes/100 WBC (Bld) 6.7 % 0-10 [facility] Mucus LM Ql (Urine sed)Order ed By: Donald Waller on 04-03-2024 Mucus Ql (Urine sed) RARE /hpf [facility] Neutrophil percentageOrdered By: Donald Waller on 04-03-2024 Neutrophils/100 WBC (Bld) 55.5 % 47-70 [facility] Nitrite Test strip Ql (U)Ord ered By: Donald Waller on 04-03-2024 Nitrite Ql (U) Negative Negative [facility] Nucleated red blood cell per centageOrdered By: Donald Waller on 04-03-2024 Nucleated RBC/100 WBC (Bld) [Ratio] 0 % 0-5 [facility] Platelet countOrdered By: Chantal Waller on 04-03-2024 Platelets (Bld) [#/Vol] 248 10*3/uL 150-450 [facility] Potassium measurementOrdered By: Donald Waller on 04-03-2024 Potassium [Moles/Vol] 3.8 mmol/L 3.5-5.1 [facility] Protein Test strip Ql (U)Ord ered By: Donald Waller on 04-03-2024 Protein Ql (U) Negative Negative [facility] RBC Auto (Bld) [#/Vol]Ordere d By: Donald Waller on 04-03-2024 RBC (Bld) [#/Vol] 4.37 10*6/uL 4.2-5.4 [facility] Serum anion gap measurementO rdered By: Donald Waller on 04-03-2024 Anion gap [Moles/Vol] 4 mmol/L Low 5-15 [facility] Serum globulin measurementOr dered By: Donald Waller on 04-03-2024 Globulin (S) [Mass/Vol] 3.4 g/dL 2.2-4.2 [facility] Serum or plasma alanine terraz[place] otransferase (ALT) measurementOrdered By: Donald Waller on 04-03-2024 ALT [Catalytic activity/Vol] 28 U/L 13-56 [facility] Serum or plasma albumin mika urement (mass/volume)Ordered By: Donald Waller on 04-03-2024 Albumin [Mass/Vol] 4.1 g/dL 3.2-5.0 [facility] Serum or plasma alkaline [place] sphatase measurementOrdered By: Donald Waller on 04-03-2024 ALP [Catalytic activity/Vol] 54 U/L 45-117 [facility] Serum or plasma calcium mika urement (mass/volume)Ordered By: Donald Waller on 04-03-2024 Calcium [Mass/Vol] 9.1 mg/dL 8.5-10.1 [facility] Serum or plasma creatinine m easurement (mass/volume)Ordered By: Donald Waller on 04-03-2024 Creatinine [Mass/Vol] 1.10 mg/dL High 0.55-1.02 [facility] Comment on above: The validity of the calculated GFR & GFRAA in patients over 70 years has not been determined. Clinical correlation is essential. Serum or plasma urea nitroge n measurement (mass/volume)Ordered By: Donald Waller on 04-03-2024 Urea nitrogen [Mass/Vol] 16 mg/dL 7-18 [facility] Sodium levelOrdered By: Donald Waller on 04-03-2024 Sodium [Moles/Vol] 140 mmol/L 136-145 [facility] Total proteinOrdered By: Carlos Waller on 04-03-2024 Protein [Mass/Vol] 7.5 g/dL 6.4-8.2 [facility] Urinalysis, Completeon 04-03 EPI,SQUAMOUS 0-5 SEEN Normal 5-10 [facility] Comment on above: Order Comment: Order Date: 04/03/24Order Info: [id number] - UACCOLLECTOR TO SPECIFY Performed By: #### M 100.2200, L100.0100 #### [facility] [address] [place], [address] Mucus Ql (Urine sed) RARE Normal [facility] Comment on above: Order Comment: Order Date: 04/03/24Order Info: [id number] - UACCOLLECTOR TO SPECIFY Performed By: #### M 100.2200, L100.0100 #### [facility] [address] [place], [address] BILIRUBIN URINE Negative Normal Negative [facility] Comment on above: Order Comment: Order Date: 04/03/24Order Info: [id number] - UACCOLLECTOR TO SPECIFY Performed By: #### M 100.2200, L100.0100 #### [facility] [address] [place], [address] Clarity (U) Clear Normal Clear [facility] Comment on above: Order Comment: Order Date: 04/03/24Order Info: [id number] - UACCOLLECTOR TO SPECIFY Performed By: #### M 100.2200, L100.0100 #### [facility] [address] [place], [address] Color (U) Straw Normal Yellow [facility] Comment on above: Order Comment: Order Date: 04/03/24Order Info: [id number] - UACCOLLECTOR TO SPECIFY Performed By: #### M 100.2200, L100.0100 #### [facility] [address] [place], [address] GLUCOSE, UR Normal Normal Normal [facility] Comment on above: Order Comment: Order Date: 04/03/24Order Info: [id number] - UACCOLLECTOR TO SPECIFY Performed By: #### M 100.2200, L100.0100 #### [facility] [address] [place], [address] KETONE UR Negative Normal Negative [facility] Comment on above: Order Comment: Order Date: 04/03/24Order Info: [id number] - UACCOLLECTOR TO SPECIFY Performed By: #### M 100.2200, L100.0100 #### [facility] [address] [place], [address] LEUK ESTERASE Negative Normal Negative [facility] Comment on above: Order Comment: Order Date: 04/03/24Order Info: [id number] - UACCOLLECTOR TO SPECIFY Performed By: #### M 100.2200, L100.0100 #### [facility] [address] [place], [address] Nitrite Ql (U) Negative Normal Negative [facility] Comment on above: Order Comment: Order Date: 04/03/24Order Info: [id number] - UACCOLLECTOR TO SPECIFY Performed By: #### M 100.2200, L100.0100 #### [facility] [address] [place], [address] OCCULT BLOOD-UR Negative Normal Negative [facility] Comment on above: Order Comment: Order Date: 04/03/24Order Info: [id number] - UACCOLLECTOR TO SPECIFY Performed By: #### M 100.2200, L100.0100 #### [facility] [address] [place], [address] pH UR 7.0 Normal 5.0 - 8.0 [facility] Comment on above: Order Comment: Order Date: 04/03/24Order Info: [id number] - UACCOLLECTOR TO SPECIFY Performed By: #### M 100.2200, L100.0100 #### [facility] [address] [place], [address] PROT DIPSTX Negative Normal Negative [facility] Comment on above: Order Comment: Order Date: 04/03/24Order Info: [id number] - UACCOLLECTOR TO SPECIFY Performed By: #### M 100.2200, L100.0100 #### [facility] [address] [place], [address] SP.GR. DIPSTX 1.010 Normal 1.002-1.030 [facility] Comment on above: Order Comment: Order Date: 04/03/24Order Info: [id number] - UACCOLLECTOR TO SPECIFY Performed By: #### M 100.2200, L100.0100 #### [facility] [address] [place], [address] UROBILI Normal Normal Normal [facility] Comment on above: Order Comment: Order Date: 04/03/24Order Info: [id number] - UACCOLLECTOR TO SPECIFY Performed By: #### M 100.2200, L100.0100 #### [facility] [address] [place], [address] BACTERIA 0 SEEN Normal None Seen [facility] Comment on above: Order Comment: Order Date: 04/03/24Order Info: [id number] - UACCOLLECTOR TO SPECIFY Performed By: #### M 100.2200, L100.0100 #### [facility] [address] [place], [address] RBC 0 SEEN Normal 0-5 [facility] Comment on above: Order Comment: Order Date: 04/03/24Order Info: [id number] - UACCOLLECTOR TO SPECIFY Performed By: #### M 100.2200, L100.0100 #### [facility] [address] [place], [address] WBC 0 SEEN Normal 0-5 [facility] Comment on above: Order Comment: Order Date: 04/03/24Order Info: [id number] - UACCOLLECTOR TO SPECIFY Performed By: #### M 100.2200, L100.0100 #### [facility] [address] [place], [address] Urine blood detectionOrdered By: Donald Waller on 04-03-2024 Urine Occult Blood Negative Negative [facility] Urine clarityOrdered By: Carlos Waller on 04-03-2024 Clarity (U) Clear Clear [facility] Urine color determinationOrd ered By: Donald Waller on 04-03-2024 Color (U) Straw Yellow [facility] Urine leukocyte esterase det ection by dipstickOrdered By: Donald Waller on 04-03-2024 Leukocyte esterase Test strip Ql (U) Negative Negative [facility] Urine pHOrdered By: Donald marie on 04-03-2024 pH (U) 7.0 [pH] 5.0 - 8.0 [facility] Urine sediment bacteria coun t by microscopy (number/high power field)Ordered By: Donald Waller on 04-03-2024 Bacteria LM.HPF (Urine sed) [#/Area] 0 /[HPF] None Seen [facility] Urine specific gravity measu rementOrdered By: Donald Waller on 04-03-2024 Specific gravity (U) [Rel density] 1.010 1.002-1.030 [facility] Urobilinogen Ql (U)Ordered B y: Donald Waller on 04-03-2024 Urine Urobilinogen Normal mg/dl Normal [facility] White blood cell (WBC) count Ordered By: Donald Waller on 04-03-2024 WBC (Bld) [#/Vol] 7.5 10*3/uL 4.4-11.0 [facility] White blood cell countOrdere d By: Donald Waller on 04-03-2024 Urine WBC 0 SEEN /hpf 0-5 [facility] MEASLES,MUMP,RUBELLAon 05-13 MUMPS ABS, IGG 53.6 AU/mL Normal Immune >10.9 [facility] Comment on above: Result Comment: (NOT E) Negative <9.0 Equivocal 9.0 - 10.9 Positive >10.9 A positive result generally indicates past exposure to Mumps virus or previous vaccination. PERFORMED AT [facility] Performed By: #### L MMR #### Testing performed at [facility] [address] [place] [address] [place] [address] RUBEOLA AB, IGG 49.1 AU/mL Normal Immune >16.4 [facility] Comment on above: Result Comment: (NOT E) Negative <13.5 Equivocal 13.5 - 16.4 Positive >16.4 Presence of antibodies to Rubeola is presumptive evidence of immunity except when acute infection is suspected. Performed By: #### L MMR #### Testing performed at [facility] [address] [facility] [place] [address] RUBELLA AB, IGG 2.63 index Normal Immune >0.99 [facility] Comment on above: Result Comment: (NOT E) Non-immune <0.90 Equivocal 0.90 - 0.99 Immune >0.99 Performed By: #### L MMR #### Testing performed at [address] [address] HEP B SURFACE ABon 0 HEP B SURFACE AB Negative Abnormal POSITIVE [facility] Comment on above: Result Comment: Clinical Interpretation of Immune Status Negative: patient is considered to be not immune to infection with HBV Intermediate: unable to determine if anti-HBs is present at levels consistent with immunity Positive: anti-HBs detected, patient is considered to be immune to infection with HBV Performed By: #### L MMR #### Testing performed at [address] [address] HEP C ABon 05-12-2019 HEP C AB Negative Normal NEGATIVE [facility] Comment on above: Performed By: #### L MMR #### Testing performed at [address] [address] FAX REQUESTon 05-11-2019 FAX TO [facility] Comment on above: Performed By: #### L MMR #### Testing performed at [address] [address] HSV by PCR Superficial Siteo n 11-27-2017 HSV by PCR Superficial Site Abnormal NEG [facility] Comment on above: Result Comment: Posi tiveFinal ReportHerpes Simplex virus (HSV) DNA WAS DETECTED by the polymerase chain reaction (PCR) method on this specimen. These results suggest that the patient is infected with HSV at the site tested.This test was developed and its performance characteristics determined by [facility]. It has not been cleared or approved by the U.S. Food and Drug Administration. The FDA has determined that such clearance or approval is not necessary. This test is used for clinical purposes. It should not be regarded as investigational or for research. Performed By: #### H SVTT2 ####Performed at [facility], [address] [place] [address] HSV Type HERPES SIMPLEX VIRUS , TYPE 1 Normal [facility] Comment on above: Performed By: #### H SVTT2 ####[place] [address] HSV by PCR Superficial Siteo n 11-26-2017 Specimen Description [facility] on above: Result Comment: LipU PPERRight Performed By: #### H SVTT2 ####[place] [address] Virus Cultureon 11-25-2017 Virus Culture Specimen description : Lesion Lip UPPER Right Special requests: None Culture results: No Virus Isolated After 1 Day Report status: Pending Normal [facility] Comment on above: Performed By: #### V IRC ####[place] [address] XR Spine Lumbosacral 2 or 3 Viewson 11-20-2017 INR Coag RelTime (Bld) Exam Date/Time:11/19/2017 14:07 EDTReason for Exam:low back painReportSTUDY:XR Spine Lumbosacral 2 or 3 Views; 11/19/2017 2:07 pmINDICATION:low back pain.COMPARISON:None. [id number] CLINICIAN:Pa SolisFINDINGS:3 views of the lumbar spine [...] 9:20 amSigned by: Mp Ordaz MD Technologist: [facility] XR Spine Thoracic 3 Viewson 11-20-2017 INR Coag RelTime (Bld) Exam Date/Time:11/19/2017 14:07 EDTReason for Exam:mid back painReportSTUDY:XR Spine Thoracic 3 Views; 11/19/2017 2:07 pmINDICATION:mid back pain.COMPARISON:None. [id number] CLINICIAN:Pa SolisFINDINGS:3 views of the thoracic spine [...] by: Mp Ordaz MD Technologist: GLP Normal [facility] C trach/N anthony Amplified Prob yany 07-02-2017 C. trachomatis amp. Abnormal NODT [facility] Comment on above: Result Comment: DETE CTEDIn [...] urine may result in reduced sensitivity. Normal [facility] N. gonorrhoeae amp. Not Detected Normal NODT [facility] Specimen Description Urine Normal [facility] [place] Chlamydia GC by PCRon 2016 Chlamydia by PCR. Not Detected Normal Not Detected [facility] Comment on above: Result Comment: Xper t CT/NG Assay performance has not been evaluated in patients less than 14 years of age. Performed By: #### 3 [id number] ####DANIEL Winters Micro SubSection, Gonorrhoeae by PCR Not Detected Normal Not Detected [facility] Comment on above: Result Comment: Xper t CT/NG Assay performance has not been evaluated in patients less than 14 years of age. Performed By: #### 3 [id number] ####DANIEL Wintersc Micro SubSection, Vital Signs Date Time Vital Sign Value Performing Clinician Buffy avila 01-04-2025 15:10-0400 Body height 172.[address] Donald Waller MD Work Phone: 0(638)622-038846 [place] [address] 01-04-2025 15:10-0400 Body mass index (BMI) [Ratio] 45.2 kg/m2 Dr. Donald Waller MD Work Phone: 9(455)508-828546 [place] [address] 01-04-2025 15:10-0400 Body weight 134.[address] Donald Waller MD Work Phone: 8(873)125-645055 [place] [address] 01-04-2025 15:10-0400 Diastolic blood pressure 85 mm[Hg] Dr. Donald Waller MD Work Phone: 0(277)488-620855 [place] [address] 01-04-2025 15:10-0400 Systolic blood pressure 129 mm[Hg] Dr. Donald Waller MD Work Phone: 0(590)773-974055 [place] [address] 12-30-2024 15:11-0400 Body height 172.[address] Donald Waller MD Work Phone: 1(445)753-490455 [place] [address] 12-30-2024 15:08-0400 Body mass index (BMI) [Ratio] 45 kg/m2 Dr. Donald Waller MD Work Phone: 3(813)926-388455 [place] [address] 12-30-2024 15:08-0400 Body weight 134.[address] Donald Waller MD Work Phone: 3(409)795-547155 [place] [address] 12-30-2024 15:08-0400 Diastolic blood pressure 82 mm[Hg] Dr. Donald Waller MD Work Phone: 8(666)089-054255 [place] [address] 12-30-2024 15:08-0400 Systolic blood pressure 119 mm[Hg] Dr. Donald Waller MD Work Phone: 6(413)244-369355 [place] [address] 12-22-2024 12:59-0400 Body height 172.[address] Donald Waller MD Work Phone: 8(870)167-970555 [place] [address] 12-22-2024 12:59-0400 Body mass index (BMI) [Ratio] 44.5 kg/m2 Dr. Donald Waller MD Work Phone: 6(351)751-608355 [place] [address] 12-22-2024 12:59-0400 Body weight 132.[address] Donald Waller MD Work Phone: [facility] 12-22-2024 12:59-0400 Diastolic blood pressure 83 mm[Hg] Dr. Donald Waller MD Work Phone: [facility] 12-22-2024 12:59-0400 Systolic blood pressure 119 mm[Hg] Dr. Donald Waller MD Work Phone: [facility] 12-17-2024 15:50-0400 Body height 172.[address] Donald Waller MD Work Phone: 7(711)941-991146 [place] [address] 12-17-2024 15:48-0400 Body mass index (BMI) [Ratio] 44.2 kg/m2 Dr. Donald Waller MD Work Phone: 3(553)159-772746 [place] [address] 12-17-2024 15:48-0400 Body weight 132.[address] Donald Waller MD Work Phone: 4(162)543-589946 [place] [address] 12-17-2024 15:48-0400 Diastolic blood pressure 87 mm[Hg] Dr. Donald Waller MD Work Phone: 4(906)680-927446 [place] [address] 12-17-2024 15:48-0400 Systolic blood pressure 138 mm[Hg] Dr. Donald Waller MD Work Phone: [facility] 12-08-2024 09:37-0400 Body height 172.[address] Donald Waller MD Work Phone: 8(348)794-354046 [place] [address] 12-08-2024 09:37-0400 Body mass index (BMI) [Ratio] 43.5 kg/m2 Dr. Donald Waller MD Work Phone: 7(458)367-938646 [place] [address] 12-08-2024 09:37-0400 Body weight 129.[address] Donald Waller MD Work Phone: [facility] 12-08-2024 09:37-0400 Diastolic blood pressure 82 mm[Hg] Dr. Donald Waller MD Work Phone: 4(177)396-172946 [place] [address] 12-08-2024 09:37-0400 Systolic blood pressure 130 mm[Hg] Dr. Donald Waller MD Work Phone: 1(351)692-543346 [place] [address] 11-27-2024 14:23-0400 Body height 172.[address] Donald Waller MD Work Phone: 9(768)755-216255 [place] [address] 11-27-2024 14:23-0400 Body mass index (BMI) [Ratio] 42.9 kg/m2 Dr. Donald Waller MD Work Phone: 2(939)505-745955 [place] [address] 11-27-2024 14:23-0400 Body weight 127.[address] Donald Waller MD Work Phone: 1(228)605-191055 [place] [address] 11-27-2024 14:23-0400 Diastolic blood pressure 85 mm[Hg] Dr. Donald Waller MD Work Phone: 3(226)317-805855 [place] [address] 11-27-2024 14:23-0400 Systolic blood pressure 138 mm[Hg] Dr. Donald Waller MD Work Phone: 9(463)726-817955 [place] [address] 11-19-2024 08:40-0400 Body height 172.[address] Donald Waller MD Work Phone: 1(977)521-595055 [place] [address] 11-19-2024 08:40-0400 Body mass index (BMI) [Ratio] 41.4 kg/m2 Dr. Donald Waller MD Work Phone: 5(307)428-476255 [place] [address] 11-19-2024 08:40-0400 Body weight 123.[address] Donald Waller MD Work Phone: 9(857)787-588846 [place] [address] 11-19-2024 08:40-0400 Diastolic blood pressure 84 mm[Hg] Dr. Donald Waller MD Work Phone: 3(547)196-396455 [place] [address] 11-19-2024 08:40-0400 Systolic blood pressure 126 mm[Hg] Dr. Donald Waller MD Work Phone: 2(660)995-588255 [place] [address] 11-09-2024 15:36-0400 Body height 172.[address] Donald Waller MD Work Phone: 0(687)673-342055 [place] [address] 11-09-2024 15:36-0400 Body mass index (BMI) [Ratio] 41.5 kg/m2 Dr. Donald Waller MD Work Phone: 2(818)428-626046 [place] [address] 11-09-2024 15:36-0400 Body weight 123.[address] Donald Waller MD Work Phone: 8(652)915-287855 [place] [address] 11-09-2024 15:36-0400 Diastolic blood pressure 84 mm[Hg] Dr. Donald Waller MD Work Phone: 6(511)741-012455 [place] [address] 11-09-2024 15:36-0400 Systolic blood pressure 133 mm[Hg] Dr. Donald Waller MD Work Phone: 1(803)509-348155 [place] [address] 10-27-2024 13:28-0400 Body height 172.[address] Donald Waller MD Work Phone: 5(976)606-346955 [place] [address] 10-27-2024 13:27-0400 Body mass index (BMI) [Ratio] 40.3 kg/m2 Dr. Donald Waller MD Work Phone: 9(640)391-981255 [place] [address] 10-27-2024 13:27-0400 Body weight 120.[address] Donald Waller MD Work Phone: 8(171)309-442555 [place] [address] 10-27-2024 13:27-0400 Diastolic blood pressure 87 mm[Hg] Dr. Donald Waller MD Work Phone: 3(021)821-311555 [place] [address] 10-27-2024 13:27-0400 Systolic blood pressure 133 mm[Hg] Dr. Donald Waller MD Work Phone: 4(342)996-160855 [place] [address] 09-28-2024 14:56-0400 Body height 172.[address] Donald Waller MD Work Phone: 0(023)758-689855 [place] [address] 09-28-2024 14:56-0400 Body mass index (BMI) [Ratio] 39.8 kg/m2 Dr. Donald Waller MD Work Phone: 8(403)864-386255 [place] [address] 09-28-2024 14:56-0400 Body weight 118.[address] Donald Waller MD Work Phone: [facility] 09-28-2024 14:56-0400 Diastolic blood pressure 76 mm[Hg] Dr. Donald Waller MD Work Phone: [facility] 09-28-2024 14:56-0400 Systolic blood pressure 122 mm[Hg] Dr. Donald Waller MD Work Phone: 6(082)926-208046 [place] [address] 09-28-2024 07:30-0400 Body height 172.[address] Donald Waller MD Work Phone: 8(049)417-434073 [address] 09-28-2024 07:30-0400 Body mass index (BMI) [Ratio] 40 kg/m2 Dr. Donald Waller MD Work Phone: 6(331)280-601555 [place] [address] 09-28-2024 07:30-0400 Body temperature 98.8 [degF] Dr. Donald Waller MD Work Phone: 1(824)424-914946 [place] [address] 09-28-2024 07:30-0400 Body weight 119.[address] Donald Waller MD Work Phone: 8(644)277-948546 [place] [address] 09-28-2024 07:30-0400 Diastolic blood pressure 80 mm[Hg] Dr. Donald Waller MD Work Phone: 3(141)515-064046 [place] [address] 09-28-2024 07:30-0400 Heart rate 90 /min Dr. Donald Waller MD Work Phone: 8(125)144-312146 [place] [address] 09-28-2024 07:30-0400 SaO2% (BldA) [Mass fraction] 99 % Dr. Donald Waller MD Work Phone: 8(188)131-386346 [place] [address] 09-28-2024 07:30-0400 Systolic blood pressure 120 mm[Hg] Dr. Donald Waller MD Work Phone: 3(531)918-237246 [place] [address] 09-01-2024 15:02-0400 Body mass index (BMI) [Ratio] 37.4 kg/m2 Dr. Donald Waller MD Work Phone: 0(478)328-625746 [place] [address] 09-01-2024 15:02-0400 Body weight 111.[address] Donald Waller MD Work Phone: [facility] 09-01-2024 15:02-0400 Diastolic blood pressure 81 mm[Hg] Dr. Donald Waller MD Work Phone: [facility] 09-01-2024 15:02-0400 Systolic blood pressure 125 mm[Hg] Dr. Donald Waller MD Work Phone: 1(471)232-680946 [place] [address] 08-04-2024 10:40-0400 Body height 172.[address] Donald Waller MD Work Phone: 3(014)450-406573 [address] 08-04-2024 10:40-0400 Body mass index (BMI) [Ratio] 35.8 kg/m2 Dr. Donald Waller MD Work Phone: 4(778)668-169273 [address] 08-04-2024 10:40-0400 Body weight 106.[address] Donald Waller MD Work Phone: 0(347)100-698146 [place] [address] 08-04-2024 10:40-0400 Diastolic blood pressure 82 mm[Hg] Dr. Donald Waller MD Work Phone: 0(390)091-834646 [place] [address] 08-04-2024 10:40-0400 Systolic blood pressure 124 mm[Hg] Dr. Donald Waller MD Work Phone: 0(308)833-634246 [place] [address] 07-07-2024 15:11-0400 Body height 172.[address] Donald Waller MD Work Phone: 8(259)046-824046 [place] [address] 07-07-2024 15:11-0400 Body mass index (BMI) [Ratio] 34.7 kg/m2 Dr. Donald Waller MD Work Phone: 5(769)104-058946 [place] [address] 07-07-2024 15:11-0400 Body weight 103.[address] Donald Waller MD Work Phone: 2(616)635-627346 [place] [address] 07-07-2024 15:11-0400 Diastolic blood pressure 84 mm[Hg] Dr. Donald Waller MD Work Phone: 7(472)366-190946 [place] [address] 07-07-2024 15:11-0400 Systolic blood pressure 131 mm[Hg] Dr. Donald Waller MD Work Phone: [facility] 06-04-2024 13:01-0500 Body mass index (BMI) [Ratio] 34.4 kg/m2 Dr. Donald Waller MD Work Phone: [facility] 06-04-2024 13:01-0500 Body weight 102.[address] Donald Waller MD Work Phone: [facility] 06-04-2024 13:01-0500 Diastolic blood pressure 82 mm[Hg] Dr. Donald Waller MD Work Phone: [facility] 06-04-2024 13:01-0500 Systolic blood pressure 128 mm[Hg] Dr. Donald Waller MD Work Phone: [facility] 04-15-2024 11:31-0500 Body mass index (BMI) [Ratio] 32.8 kg/m2 Dr. Donald Waller MD Work Phone: [facility] 04-15-2024 11:31-0500 Body weight 97.[address] Donald Waller MD Work Phone: [facility] 04-15-2024 11:31-0500 Diastolic blood pressure 71 mm[Hg] Dr. Donald Waller MD Work Phone: [facility] 04-15-2024 11:31-0500 Systolic blood pressure 128 mm[Hg] Dr. Donald Waller MD Work Phone: [facility] Encounters Encounter Date Encounter Type Care Provider Facility Start: 01-04-2025 End: 01-04-[address] Nita Mcintosh MD -[facility] Work Phone: Start: 01-04-2025 End: 01-04-[address] Donald Waller MD Work Phone: -[facility] Start: 12-30-2024 End: 12-30-[address] Susan Chavez DO -[facility] Work Phone: Start: 12-30-2024 End: 12-30-[address] Donald Waller MD Work Phone: [facility] Start: 12-22-2024 End: 12-22-[address] Nita Mcintosh MD -[facility] Work Phone: Start: 12-22-2024 End: 12-22-[address] Donald Waller MD Work Phone: [facility] Start: 12-17-2024 End: 12-17-[address] Nita Mcintosh MD -[facility] Work Phone: Start: 12-17-2024 End: 12-17-[address] Donald Waller MD Work Phone: [facility] Start: 12-17-2024 End: 12-17-2024 ambulatory Donald Waller Facility:[facility] Start: 12-08-2024 End: 12-08-2024 Patient encounter procedure Susie Solomon CNM -[facility] Work Phone: Start: 12-08-2024 End: 12-08-[address] Donald Waller MD Work Phone: [facility] Start: 11-27-2024 End: 11-27-[address] Nita Mcintosh MD -[facility] Work Phone: Start: 11-27-2024 End: 11-27-[address] Donald Waller MD Work Phone: [facility] Start: 11-19-2024 End: 11-19-[address] Nita Mcintosh MD -[facility] Work Phone: Start: 11-19-2024 End: 11-19-[address] Donald Waller MD Work Phone: [facility] Start: 11-19-2024 End: 11-19-2024 ambulatory Donald Waller Facility:[facility] Start: 11-09-2024 End: 11-09-[address] Nita Mcintosh MD -[facility] Work Phone: Start: 11-09-2024 End: 11-09-[address] Donald Waller MD Work Phone: [facility] Start: 10-27-2024 End: 10-27-2024 Patient encounter procedure Jennifer FISHERC -[facility] Work Phone: Start: 10-27-2024 End: 10-27-[address] Donald Waller MD Work Phone: [facility] Start: 10-27-2024 Non-patient / Non-visit Dr. Jaida Mcpherson MD -[facility] Work Phone: Start: 10-27-2024 End: 10-27-2024 ambulatory Donald Waller Facility:[facility] Start: 10-10-2024 End: 10-10-[address] Donald Waller MD Work Phone: [facility] Work Phone: Start: 10-10-2024 End: 10-10-[address] Donald Waller MD -Laboratory Specimen Work Phone: Start: 10-10-2024 End: 10-10-2024 ambulatory Donald Waller Facility:[facility] Start: 09-28-2024 End: 09-28-2024 Patient encounter procedure Jennifer AGARWAL -[facility] Work Phone: Start: 09-28-2024 End: 09-28-[address] Donald Waller MD Work Phone: [facility] Work Phone: Start: 09-28-2024 End: 09-28-2024 Patient encounter procedure Dinh Lorenzana [place] -[facility] Work Phone: Start: 09-28-2024 End: 09-28-[address] Donald Waller MD Work Phone: [facility] Work Phone: Start: 09-01-2024 End: 09-01-[address] Susan Chavez DO -[facility] Work Phone: Start: 09-01-2024 End: 09-01-2024 ambulatory Donald Waller Facility:[facility] Start: 08-19-2024 End: 08-19-[address] Nita Mcintosh MD -Ultrasound [facility] Work Phone: Start: 08-19-2024 End: 08-19-2024 ambulatory Donald Waller Facility:[facility] Start: 08-04-2024 End: 08-04-2024 Patient encounter procedure Jennifer Willard NP- -[facility] Work Phone: Start: 08-04-2024 End: 08-04-[address] Donald Waller MD Work Phone: [facility] Work Phone: Start: 08-04-2024 End: 08-04-2024 ambulatory Jennifer Willard NP Facility:[facility] Start: 07-07-2024 End: 07-07-[address] Donald Waller MD Work Phone: [facility] Work Phone: Start: 07-07-2024 End: 07-07-[address] Nita Mcintosh MD -Lab, [facility] Start: 07-07-2024 End: 07-07-[address] Nita Mcintosh MD -[facility] Work Phone: Start: 07-07-2024 End: 07-07-2024 ambulatory Donald Waller Facility:[facility] Start: 07-07-2024 End: 07-07-2024 ambulatory Donald Waller Facility:[facility] Start: 06-04-2024 End: 06-04-2024 Patient encounter procedure Susie Solomon CNM -Laboratory, Specimen Work Phone: Start: 06-04-2024 End: 06-04-2024 Patient encounter procedure Susie Solomon CNM -[facility] Work Phone: Start: 06-04-2024 End: 06-04-2024 ambulatory Donald Waller Facility:[facility] Start: 06-04-2024 End: 06-04-2024 ambulatory Donald Waller Facility:[facility] Start: 04-15-2024 End: 04-15-[address] Donald Waller MD -Ultrasound, [facility] Work Phone: Start: 04-15-2024 End: 04-15-2024 Patient encounter procedure Magda AGARWAL -[facility] Work Phone: Start: 04-15-2024 End: 04-15-2024 Patient encounter status Magda AGARWAL [facility] Start: 04-15-2024 End: 04-15-2024 ambulatory Donald Waller Facility:[facility] Start: 04-15-2024 End: 04-15-2024 ambulatory Donald Waller Facility:[facility] Start: 04-10-2024 End: 04-10-[address] Donald Waller MD -Laboratory, Specimen Work Phone: Start: 04-10-2024 End: 04-10-2024 ambulatory Donald Waller Facility:[facility] Start: 04-03-2024 End: 04-03-[address] Donald Waller MD -Laboratory, [facility] Start: 04-03-2024 End: 04-03-2024 ambulatory Donald Waller Facility:[facility] Start: 11-26-2017 Patient encounter ELENI VIDAL [facility] Start: 11-19-2017 End: 11-20-2017 Patient encounter [facility] Facility:[facility] Start: 11-19-2017 Patient encounter Facil [id number] Start: 11-05-2017 Ambulatory [facility] Facility :[place] Start: 07-02-2017 End: 07-02-2017 Patient encounter [facility] Start: 12-21-2016 End: 12-22-2016 Patient encounter [facility] Facility:[facility] Procedures Date Procedure Procedure Detail Performing [...] HCV Quant by PCR testing - HCVPCR #[id number] Non Reactive: < 0.8 Equivocal: >/= 0.8 [...] B Streptococcus Culture Group B Streptococcus Culture [facility] Start: 12-17-2024 Streptococcus agalactiae [Presence] in Unspecified specimen by Organism specific culture [facility] Start: 11-19-2024 Bacteria identified in Urine by Culture Urine Culture [facility] Start: 11-19-2024 CBC W Auto Differential panel - Blood [facility] Start: 11-19-2024 [facility] Start: 10-27-2024 Comprehensive metabolic 2000 panel - Serum or Plasma [facility] Start: 10-27-2024 CBC W Auto Differential panel - Blood [facility] Start: 10-27-2024 Serologic test for syphilis [facility] Start: 10-27-2024 [facility] Alanine aminotransfe rase [Enzymatic activity/volume] in Serum or Plasma [facility] Albumin [Mass/volume ] in Serum or Plasma [facility] Alkaline phosphatase [Enzymatic activity/volume] in Serum or Plasma [facility] Anion gap in Serum o r Plasma [facility] Beta-hemolytic Streptococcus culture [facility] [facility] Bilirubin, total measurement [facility] BUN/Creatinine ratio [facility] Calcium [Mass/volume ] in Serum or Plasma [facility] Carbon dioxide, tota l [Moles/volume] in Central venous blood [facility] CBC W Auto Different ial panel - Blood [facility] Creatinine [Mass/vol ume] in Serum or Plasma [facility] Erythrocyte mean corpuscular volume determination [facility] Erythrocyte mean corpuscular volume determination [facility] anatomy study [facility] Glucose [Mass/volume ] in Serum or Plasma [facility] Hematocrit [Volume Fraction] of Blood [facility] Hematocrit [Volume Fraction] of Blood [facility] Hemoglobin [Mass/vol ume] in Blood [facility] Hemoglobin [Mass/vol ume] in Blood [facility] Leukocytes [#/volume ] in Blood [facility] Leukocytes [#/volume ] in Blood [facility] Mean corpuscular hem oglobin concentration determination [facility] Mean corpuscular hem oglobin concentration determination [facility] Mean corpuscular hem oglobin determination [facility] Mean corpuscular hem oglobin determination [facility] Measurement of gluco se 2 hours after glucose challenge for glucose tolerance test [facility] Measurement of renal function [facility] Neutrophil count [facility] Neutrophil count [facility] Neutrophil percent differential count [facility] Neutrophil percent differential count [facility] Platelets [#/volume] in Blood [facility] Platelets [#/volume] in Blood [facility] Potassium measurement [facility] Protein/Creatinine [ Ratio] in Urine [facility] Red blood cell count [facility] Red blood cell count [facility] Red cell distributio n width determination [facility] Red cell distributio n width determination [facility] Serologic test for syphilis [facility] Serum chloride measurement [facility] Sodium measurement [facility] Total protein measurement [facility] Urea nitrogen [Mass/ volume] in Serum or Plasma [facility] Urine culture [facility] Immunizations Immunization Date Immunization Notes [facility] Provider [facility]24 tetanus toxoid, redu ketan diphtheria toxoid, and acellular pertussis vaccine, adsorbed Dr. Donald Waller MD Work Phone: [facility] 11-29-2016 meningococcal B vacc ine, fully recombinant Dr. Donald Waller MD Work Phone: [facility] 11-29-2015 meningococcal B vacc ine, fully recombinant Dr. Donald Waller MD Work Phone: [facility] 11-29-2015 meningococcal polysaccharide (groups A, C, Y and W-135) diphtheria toxoid conjugate vaccine (MCV4P) Dr. Donald Waller MD Work Phone: [facility] 11-02-2010 meningococcal polysaccharide (groups A, C, Y and W-135) diphtheria toxoid conjugate vaccine (MCV4P) Dr. Donald Waller MD Work Phone: [facility] 08-05-[address] Donald Waller MD Work Phone: [facility] 12-29-2003 measles, mumps and rubella virus vaccine Dr. Donald Waller MD Work Phone: [facility] 10-01-[address] Donald Waller MD Work Phone: [facility] 06-27-2000 measles, mumps and rubella virus vaccine Dr. Donald Waller MD Work Phone: [facility] Payers Date Payer Category Payer Self-pay 2024 Unknown [id number] 2017 Unknown [id number] 2016 Unknown Unknown [id number] 2.16.8 40.1.137541.3.579.2.462 Unknown [id number] 2.16.8 40.1.671728.3.579.2.462 Unknown [id number] .16.8 40.1.278785.3.579.2.462 Unknown [id number] 2.16.8 40.1.527839.3.579.2.462 Unknown [id number] 2.16.8 40.1.416462.3.579.2.462 Unknown [id number] 2.16.8 40.1.383741.3.579.2.462 Unknown [id number] 2.16.8 40.1.261945.3.579.2.462 Unknown [id number] 2.16.8 40.1.432770.3.579.2.462 Unknown [id number] 2.16.8 40.1.046321.3.579.2.462 Unknown [id number] 2.16.8 40.1.156175.3.579.2.462 Unknown [id number] 2.16.8 40.1.936205.3.579.2.462 Unknown [id number] 2.16.8 40.1.964529.3.579.2.462 Unknown [id number] 2.16.8 40.1.537506.3.579.2.462 Unknown [id number] 2.16.8 40.1.508363.3.579.2.462 Unknown [id number] 2.16.8 40.1.874540.3.579.2.462 Unknown [id number] 2.16.8 40.1.528830.3.579.2.462 Unknown [id number] 2.16.8 40.1.425765.3.579.2.462 Unknown [id number] 2.16.8 40.1.161059.3.579.2.462 Unknown [id number] 2.16.8 40.1.050289.3.579.2.462 Unknown [id number] 2.16.8 40.1.176533.3.579.2.462 Unknown [id number] 2.16.8 40.1.446368.3.579.2.462 Unknown [id number] 2.16.8 40.1.666205.3.579.2.462 Unknown [id number] 2.16.8 40.1.509247.3.579.2.462 Unknown [id number] 2.16.8 40.1.346665.3.579.2.462 Unknown [id number] 2.16.8 40.1.329133.3.579.2.462 Unknown [id number] 2.16.8 40.1.108426.3.579.2.462 Unknown [id number] 2.16.8 40.1.643162.3.579.2.462 Social History Date Type Detail Facility Start: 05-26-2024 Tobacco smoking stat us [facility] Smokes tobacco daily (finding) [facility] Start: 07-17-2024 End: 08-06-2024 Sex Female (finding) [facility] Start: 2000 Sex Assigned At Female [facility] Clinical Notes 04-15-2024 to 12-30-2024 Note Date & Type Note Facility 12-30-2024 Progress note [facility] 12-30-2024 Progress note Note Date/Time December 30, 2024 3:46pm [facility] [address], [address] [place] [address] OFFICE VISIT Date of Service: 12/30/24 MR#: [id number] Acct: [id number] Name: LUCIANO KENDALL Rep #: [id number] : 2000 Provider: Dr. Naila Chavez DO Age/Sex: 24/F Location[place] [facility] Status: Signed Intake Vital Signs 11/09/24 15:36 12/22/24 12:59 12/30/24 15:08 12/30/24 15:11 Height 5 ft 8 in 5 ft 8 in 5 ft 8 in 5 ft 8 in Weight: 296 lb 4 oz BMI 45.0 BP 119/82 H Intake Visit Reasons: 39 wk ob Melting Supervisor Required: No Is patient in pain?: No [...] : No PFSH PFSH Medical History Congenital pruwlc-kfdlemz-iybdp reflux Gallstones UTI (urinary tract infection) Asthma Surgical History Hx of cholecystectomy Hx of tonsillectomy Family History Father Diabetes Type 1 Aunt Thyroid disorder Maternal Mother Thyroid disorder enlarged Grandmother Breast cancer Paternal Social History adopted: No household members: significant other 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al status: 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al exposures/hazards: No pets and [...] 1-2 times per week duration: 60-90 minutes/day sid/baptism: None seatbelt use: always do you feel [...] and Symptoms of Preeclampsia, Feeding No , [facility] [employer] Family Medical Leave or Disability Forms Results POC Urinalysis 2 Dip (Clinic) Office Urine Glucose Negative Last Edit by Monica Mabry on 12/30/24 15: 37 Office Urine Protein Negative Last Edit by Monica Mabry on 12/30/24 15: 37 Coding Level of Care Code OB Routine Diagnoses Kidney disease N28.9 Elevated serum creatinine R79.89 Congenital vvubqz-jbyohap-nylpa reflux Q62.7 Current every day nicotine vaping [...] P/C ratio: 7/1: not done (3) Congenital hbehfq-vdivvfd-iugjs reflux: Status: Acute Comment: check urine func [...] Red DO> Date _ Susan Chavez DO [facility] Signature: Date (if applicable) CC: ~ [facility] Work Phone: 1(243) 613-276408-26-2025 Progress [facility] [address] [place] [address], [address] [place] [id number] OFFICE VISIT Date of Service: 12/22/24 MR#: [id number] Acct: [id number] Name: LUCIANO KENDALL Rep #: [id number] : 2000 Provider: Dr. Marcio Mcintosh MD Age/Sex: 24/F Location[place] [facility] Status: Signed Intake Vital Signs 11/09/24 15:36 11/19/24 08:40 12/17/24 15:50 12/22/24 12:59 Height 5 ft 8 in 5 ft 8 in 5 ft 8 in 5 ft 8 in Weight: 293 lb BMI 44.5 BP 119/83 H Intake Visit Reasons: 38 wk ob Melting Supervisor Required: No Is patient in pain?: No [...] : No PFSH PFSH Medical History Congenital otgwpj-sgxgrgp-vnsrw reflux Gallstones UTI (urinary tract infection) Asthma Surgical History Hx of cholecystectomy Hx of tonsillectomy Family History Father Diabetes Type 1 Aunt Thyroid disorder Maternal Mother Thyroid disorder enlarged Grandmother Breast cancer Paternal Social History adopted: No household members: significant other 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al status: 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al exposures/hazards: No pets and [...] 1-2 times per week duration: 60-90 minutes/day sid/baptism: None seatbelt use: always do you feel [...] disease N28.9 Elevated serum creatinine R79.89 Congenital untciq-kqjeuix-goxgu reflux Q62.7 Current every day nicotine vaping [...] Q3mo:CMP and urine P/C ratio:7/1: (3) Congenital xlfzck-lhbzgih-pwnyk reflux: Status: Acute Comment: check urine func [...] nate PITTMAN> Date _ Nita Mcintosh MD [facility] Signature: Date (if applicable) CC: ~ [facility] [id number] Progress [facility] [address] [place] [address], [address] [place] [address] OFFICE VISIT Date of Service: 12/17/24 MR#: [id number] Acct: [id number] Name: LUCIANO KENDALL Rep #: [id number] : 2000 Provider: Dr. Marcio Mcintosh MD Age/Sex: 24/F Location: [facility] Status: Signed Intake Vital Signs 11/09/24 15:36 12/08/24 09:37 12/17/24 15:48 12/17/24 15:50 Height 5 ft 8 in 5 ft 8 in 5 ft 8 in 5 ft 8 in Weight: 291 lb 2 oz BMI 44.2 BP 138/87 H Intake Visit Reasons: 37 wk ob Melting Supervisor Required: No Is patient in pain?: No [...] : No PFSH PFSH Medical History Congenital hdrzvt-cfmneaj-gkzub reflux Gallstones UTI (urinary tract infection) Asthma Surgical History Hx of cholecystectomy Hx of tonsillectomy Family History Father Diabetes Type 1 Aunt Thyroid disorder Maternal Mother Thyroid disorder enlarged Grandmother Breast cancer Paternal Social History adopted: No household members: significant other 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al status: 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al exposures/hazards: No pets and [...] 1-2 times per week duration: 60-90 minutes/day sid/baptism: None seatbelt use: always do you feel [...] disease N28.9 Elevated serum creatinine R79.89 Congenital mqibts-aclkyob-aepwx reflux Q62.7 Current every day nicotine vaping [...] Q3mo:CMP and urine P/C ratio:7/1: (3) Congenital ntcuyg-nksbidf-slvzl reflux: Status: Acute Comment: check urine func [...] of normal first , third trimester 12/17/24 7515 nate PITTMAN> Date _ Nita Mcintosh MD Cosigner Signature: Date (if applicable) CC: ~ [facility]08-21-2025 Progress note Author Nita Mcintosh [facility] Note Date/Time December 17, 2024 4: 37pm [facility] [address] [place] [address], [address] [place] [address] OFFICE VISIT Date of Service: 12/17/24 MR#: [id number] Acct: [id number] Name: LUCIANO KENDALL Rep #: [id number] : 2000 Provider: Dr. Marcio Mcintosh MD Age/Sex: 24/F Location[place] [facility] Status: Signed Intake Vital Signs 11/09/24 15:36 12/08/24 09:37 12/17/24 15:48 12/17/24 15:50 Height 5 ft 8 in 5 ft 8 in 5 ft 8 in 5 ft 8 in Weight: 291 lb 2 oz BMI 44.2 BP 138/87 H Intake Visit Reasons: 37 wk ob Melting Supervisor Required: No Is patient in pain?: No [...] : No PFSH PFSH Medical History Congenital tvpacd-pydtvlg-douqm reflux Gallstones UTI (urinary tract infection) Asthma Surgical History Hx of cholecystectomy Hx of tonsillectomy Family History Father Diabetes Type 1 Aunt Thyroid disorder Maternal Mother Thyroid disorder enlarged Grandmother Breast cancer Paternal Social History adopted: No household members: significant other 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al status: 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al exposures/hazards: No pets and [...] 1-2 times per week duration: 60-90 minutes/day sid/baptism: None seatbelt use: always do you feel [...] Symptoms of Preeclampsia, Infant Feeding No , [place] Education and Family Medical Leave or Disability Forms Results POC Urinalysis 2 Dip (Clinic) Office Urine Glucose Negative Last Edit by Jennifer Rae on 12/17/24 15:52 Office Urine Protein Negative Last Edit by Jennifer Rae on 12/17/24 15:52 Coding Level of Care Code OB Routine Diagnoses Kidney disease N28.9 Elevated serum creatinine R79.89 Congenital soormx-qbdcycz-ptfhd reflux Q62.7 Current every day nicotine vaping [...] and urine P/C ratio: 7/1: (3) Congenital zuoryo-jlijuxh-zflhe reflux: Status: Acute Comment: check urine func [...] of normal first , third trimester 12/17/24 0765 <Electronically signed by Nita sullivan MD> Date _ [facility]: Date (if applicable) CC: ~ [facility] [facility] Work Phone: 1(236) 933-622308-12-2025 Progress [facility] [address] [place] [address], [address] [place] [address] OFFICE VISIT Date of Service: 12/08/24 MR#: [id number] Acct: [id number] Name: LUCIANO KENDALL Rep #: [id number] : 2000 Provider: ALEXANDRA Solomon Age/Sex: 24/F Location[place] [facility] Status: Signed Intake Vital Signs 10/27/24 13:28 11/27/24 14:23 12/08/24 09:37 Height 5 ft 8 in 5 ft 8 in 5 ft 8 in Weight: 286 lb 8 oz BMI 43.5 BP 130/82 H Intake Visit Reasons: 36wk ob Chief Complaint: 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 Is patient in pain?: No [...] year?: No PFSH PFSH Medical History Congenital jvecxl-nuyvtcr-afjog reflux Gallstones UTI (urinary tract infection) Asthma Surgical History Hx of cholecystectomy Hx of tonsillectomy Family History Father Diabetes Type 1 Aunt Thyroid disorder Maternal Mother Thyroid disorder enlarged Grandmother Breast cancer Paternal Social History adopted: No household members: significant other 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al status: 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al exposures/hazards: No pets and [...] 1-2 times per week duration: 60-90 minutes/day sid/baptism: None seatbelt use: always do you feel [...] disease N28.9 Elevated serum creatinine R79.89 Congenital wakcqa-mwzxdwx-dwhud reflux Q62.7 Current every day nicotine vaping [...] Q3mo:CMP and urine P/C ratio:7/1: (3) Congenital whjtnz-dckdicp-exhue reflux: Status: Acute Comment: check urine func [...] [place] Signature: Date (if applicable) CC: ~ [facility]08-01-2025 Progress [facility] [address] [place] [address], [address] [place] [address] OFFICE VISIT Date of Service: 11/27/24 MR#: [id number] Acct: [id number] Name: LUCIANO KENDALL Rep #: [id number] : 2000 Provider: Dr. Marcio Mcintosh MD Age/Sex: 24/F Location: [facility] Status: Signed Intake Vital Signs 10/27/24 13:28 11/09/24 15:36 11/19/24 08:40 11/27/24 14:23 Height 5 ft 8 in 5 ft 8 in 5 ft 8 in 5 ft 8 in Weight: 282 lb 3 oz BMI 42.9 BP 138/85 H Intake Visit Reasons: 34wk ob Melting Supervisor Required: No Is patient in pain?: No [...] : No PFSH PFSH Medical History Congenital nydadf-rvgitdm-eibwx reflux Gallstones UTI (urinary tract infection) Asthma Surgical History Hx of cholecystectomy Hx of tonsillectomy Family History Father Diabetes Type 1 Aunt Thyroid disorder Maternal Mother Thyroid disorder enlarged Grandmother Breast cancer Paternal Social History adopted: No household members: significant other 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al status: 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al exposures/hazards: No pets and [...] 1-2 times per week duration: 60-90 minutes/day sid/baptism: None seatbelt use: always do you feel [...] disease N28.9 Elevated serum creatinine R79.89 Congenital cipzza-jvkpzvk-yczmy reflux Q62.7 Current every day nicotine vaping [...] Q3mo:CMP and urine P/C ratio:7/1: (3) Congenital acohri-xqnmgsu-skpdr reflux: Status: Acute Comment: check urine func [...] Cosigner Signature: Date (if applicable) CC: ~ [facility]08-01-2025 Progress note Author Nita Mcintosh [facility] Note Date/Time November 27, 2024 2:4 8pm [facility] [address] [place] [address], [address] [place] [address] OFFICE VISIT Date of Service: 11/27/24 MR#: [id number] Acct: [id number] Name: LUCIANO KENDALL Rep #: [id number] : 2000 Provider: Dr. Marcio Mcintosh MD Age/Sex: 24/F Location: [facility] Status: Signed Intake Vital Signs 10/27/24 13:28 11/09/24 15:36 11/19/24 08:40 11/27/24 14:23 Height 5 ft 8 in 5 ft 8 in 5 ft 8 in 5 ft 8 in Weight: 282 lb 3 oz BMI 42.9 BP 138/85 H Intake Visit Reasons: 34wk ob Melting Supervisor Required: No Is patient in pain?: No [...] : No PFSH PFSH Medical History Congenital fsbzab-xjfjece-pkoim reflux Gallstones UTI (urinary tract infection) Asthma Surgical History Hx of cholecystectomy Hx of tonsillectomy Family History Father Diabetes Type 1 Aunt Thyroid disorder Maternal Mother Thyroid disorder enlarged Grandmother Breast cancer Paternal Social History adopted: No household members: significant other 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al status: 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al exposures/hazards: No pets and [...] 1-2 times per week duration: 60-90 minutes/day sid/baptism: None seatbelt use: always do you feel [...] disease N28.9 Elevated serum creatinine R79.89 Congenital iajhxu-diyvehl-pjibx reflux Q62.7 Current every day nicotine vaping [...] and urine P/C ratio: 7/1: (3) Congenital fmvxxe-pulkaxz-gjids reflux: Status: Acute Comment: check urine func [...] POC Urinalysis 2 Dip (Clinic) Today 11/27/24 8373 <Electronically signed by Nita sullivan MD> Date _ [facility] Signature: Date (if applicable) CC: ~ [facility] Work Phone: 1(173) 734-512907-14-2025 Progress [facility] [address] [place] [address], [address] [place] [address] OFFICE VISIT Date of Service: 11/09/24 MR#: [id number] Acct: [id number] Name: LUCIANO KENDALL Rep #: [id number] : 2000 Provider: Dr. Marcio Mcintosh MD Age/Sex: 24/F Location[place] [facility] Status: Signed Intake Vital Signs 09/01/24 15:04 10/27/24 13:28 11/09/24 15:36 Height 5 ft 8 in 5 ft 8 in 5 ft 8 in Weight: 273 lb 4 oz BMI 41.5 BP 133/84 H Intake Visit Reasons: 32wk ob Melting Supervisor Required: No Is patient in pain?: No [...] : No PFSH PFSH Medical History Congenital mhntbo-rtryfgw-ifwbz reflux Gallstones UTI (urinary tract infection) Asthma Surgical History Hx of cholecystectomy Hx of tonsillectomy Family History Father Diabetes Type 1 Aunt Thyroid disorder Maternal Mother Thyroid disorder enlarged Grandmother Breast cancer Paternal Social History adopted: No household members: significant other 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al status: 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al exposures/hazards: No pets and [...] 1-2 times per week duration: 60-90 minutes/day sid/baptism: None seatbelt use: always do you feel [...] disease N28.9 Elevated serum creatinine R79.89 Congenital rnwiuc-llnyucx-xfygq reflux Q62.7 Current every day nicotine vaping [...] Q3mo:CMP and urine P/C ratio:7/1: (3) Congenital tgoyfe-sfshguy-lqpes reflux: Status: Acute Comment: check urine func [...] Cosigner Signature: Date (if applicable) CC: ~ [facility]07-14-2025 Progress note Author Nita Mcintosh [facility] Note Date/Time November 09, 2024 3:54 pm [facility] [address], [address] [place] [address] OFFICE VISIT Date of Service: 11/09/24 MR#: [id number] Acct: [id number] Name: LUCIANO KENDALL Rep #: [id number] : 2000 Provider: Dr. Marcio Mcintosh MD Age/Sex: 24/F Location: [facility] Status: Signed Intake Vital Signs 09/01/24 15:04 10/27/24 13:28 11/09/24 15:36 Height 5 ft 8 in 5 ft 8 in 5 ft 8 in Weight: 273 lb 4 oz BMI 41.5 BP 133/84 H Intake Visit Reasons: 32wk ob Melting Supervisor Required: No Is patient in pain?: No [...] : No PFSH PFSH Medical History Congenital etmhob-btuyxwm-znhef reflux Gallstones UTI (urinary tract infection) Asthma Surgical History Hx of cholecystectomy Hx of tonsillectomy Family History Father Diabetes Type 1 Aunt Thyroid disorder Maternal Mother Thyroid disorder enlarged Grandmother Breast cancer Paternal Social History adopted: No household members: significant other 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al status: 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al exposures/hazards: No pets and [...] 1-2 times per week duration: 60-90 minutes/day sid/baptism: None seatbelt use: always do you feel [...] Symptoms of Preeclampsia, Infant Feeding No , [place] Education and Family Medical Leave or Disability Forms Results POC Urinalysis 2 Dip (Clinic) Office Urine Glucose Negative Last Edit by Jennifer Rae on 11/09/24 15:44 Office Urine Protein Negative Last Edit by Jennifer Rae on 11/09/24 15:44 Coding Level of Care Code OB Routine Diagnoses Kidney disease N28.9 Elevated serum creatinine R79.89 Congenital odqubh-ncdbbdw-bsftv reflux Q62.7 Current every day nicotine vaping [...] and urine P/C ratio: 7/1: (3) Congenital uokgsj-zqkunis-yjvvl reflux: Status: Acute Comment: check urine func [...] POC Urinalysis 2 Dip (Clinic) Today 11/09/24 3723 <Electronically signed by Nita sullivan MD> Date _ Nita Mcintosh MD Cosigner Signature: Date (if applicable) CC: ~ [facility] [employer] Work Phone: 1(313) 240-709906-02-2025 Evaluation note* Diagnosis Onset Date Resolution Status Admit Date Anxiety acute September 28, 2024 2:50pm Congenital dphttx-ukttxnl-fspyq reflux acute September 28, 2024 2:50pm Current [...] Anxiety acute October 27, 2024 1:38pm Congenital zcgori-mldfpka-hoqhq reflux acute October 27, 2024 1:38pm Current [...] 1:38pm Anxiety acute November 09 3:21pm Congenital ahvwvi-jsqvmld-dmgru reflux acute November 09, 2024 3:21pm Current [...] 3:21pm Anxiety acute November 19 8:30am Congenital dbxlsk-jrnzhbo-hxzff reflux acute November 19, 2024 8:30am Current [...] 8:30am Anxiety acute November 27 2:18pm Congenital tfjtss-oqkbizk-mmhzy reflux acute 2024 2:18pm Current every day nicotine vaping acute November 27, 2024 2:18pm Elevated serum creatinine acute November 27, 2024 2:18pm FH: hemophilia acute November 2:18pm Kidney disease acute November 2:18pm Obesity affecting acute November 27, 2024 2:18pm acute November 27 2:18pm Supervision of normal first acute November 27, 2024 2:18pm Anxiety acute December 08, 025 9:33am Congenital gniwdi-rykiilg-hscrf reflux acute 2024 9:33am Current every day nicotine vaping acute December 08 9:33am Elevated serum creatinine acute December 08, 2024 9:33am FH: hemophilia acute November 9:33am Kidney disease acute November 9:33am Obesity affecting acute December 08, 2024 9:33am acute December 08, 2 025 9:33am Supervision of normal first acute December 08 9:33am Anxiety acute December 17, 2 025 3:44pm Congenital dmmqkn-vdevuxe-nkgey reflux acute 2024 3:44pm Current every day nicotine vaping acute December 17 3:44pm Elevated serum creatinine acute December 17, 2024 3:44pm FH: hemophilia acute November 3:44pm Kidney disease acute November 3:44pm Obesity affecting acute December 17, 2024 3:44pm acute December 17, 2 025 3:44pm Supervision of normal first acute December 17 3:44pm Anxiety acute December 22, 2 025 12:54pm Congenital gzwkol-dvuwxyy-qxgsr reflux acute 2024 12:54pm Current every day nicotine vaping acute December 22 12:54pm Elevated serum creatinine acute December 22, 2024 12:54pm FH: hemophilia acute November 12:54pm Kidney disease acute November 12:54pm Obesity affecting acute December 22, 2024 12:54pm acute December 22, 2 025 12:54pm Supervision of normal first acute December 22 12:54pm Anxiety acute December 30, 2024 2:50pm Congenital yfstik-afwzlpk-ibnpc reflux acute Dec 2:50pm Current every day [...] Anxiety acute January 04, 2025 3:05pm Congenital nhumgu-mnyrzdy-sukdj reflux acute Dec 3:05pm Current every day nicotine vaping acute January 04, 2 025 3:05pm Elevated serum creatinine acute January 04, 2025 3:05pm FH: hemophilia acute January 04, 2025 3:05pm Kidney disease acute January 04, 2025 3:05pm Obesity affecting acute January 04, 2025 3:05pm acute January 04, 2025 3:05pm Supervision of normal first acute January 04, 2 025 3:05pm [facility] Work Phone: 1(147) 179-637605-06-2025 Evaluation note* Diagnosis Onset Date Resolution Status Admit Date Anxiety acute September 01, 2024 2:50pm Congenital yfcuzp-ryrzsdr-fecul reflux acute September 01, 2024 2:50pm Current every day nicotine vaping acute September 01, 2024 2: 50pm Elevated serum creatinine acute September 01, 2024 2:50pm FH: hemophilia acute September 01, 2 025 2:50pm Obesity affecting acute September 01, 2024 2:50pm acute September 01, 2024 2:50pm Supervision of normal first acute September 01, 2024 2: 50pm Anxiety acute September 28, 2024 2:50pm Congenital itbgbh-ixjcfuu-fvzrw reflux acute September 28, 2024 2:50pm Current [...] Anxiety acute October 27, 2024 1:38pm Congenital hksxec-xrclddt-bzuvq reflux acute October 27, 2024 1:38pm Current [...] 1:38pm Anxiety acute November 09 3:21pm Congenital oozwni-yatqrzp-wccnl reflux acute November 09, 2024 3:21pm Current [...] 3:21pm Anxiety acute November 19 8:30am Congenital veucic-ogfjnso-qxwaz reflux acute November 19, 2024 8:30am Current [...] 8:30am Anxiety acute November 27 2:18pm Congenital thtveh-gyuxtsd-qriti reflux acute 2024 2:18pm Current every day nicotine vaping acute November 27, 2024 2:18pm Elevated serum creatinine acute November 27, 2024 2:18pm FH: hemophilia acute November 2:18pm Kidney disease acute November 2:18pm Obesity affecting acute November 27, 2024 2:18pm acute November 27 2:18pm Supervision of normal first acute November 27, 2024 2:18pm Anxiety acute December 08, 2 025 9:33am Congenital aezfmn-ljyhrlz-tdiqh reflux acute 2024 9:33am Current every day nicotine vaping acute December 08 9:33am Elevated serum creatinine acute December 08, 2024 9:33am FH: hemophilia acute November 9:33am Kidney disease acute November 9:33am Obesity affecting acute December 08, 2024 9:33am acute December 08, 2 025 9:33am Supervision of normal first acute December 08 9:33am [facility] Work Phone: 1([phone]) [phone] Evaluation note* Diagnosis Onset Date Resolution Status Admit Date Anxiety acute September 01, 2024 2:50pm Congenital ppuxph-tqaqssr-slcpt reflux acute September 01, 2024 2:50pm Current every day nicotine vaping acute September 01, 2024 2: 50pm Elevated serum creatinine acute September 01, 2024 2:50pm FH: hemophilia acute September 01, 2 025 2:50pm Obesity affecting acute September 01, 2024 2:50pm acute September 01, 2024 2:50pm Supervision of normal first acute September 01, 2024 2: 50pm Anxiety acute September 28, 2024 2:50pm Congenital xqncqs-jqptnfp-nblar reflux acute September 28, 2024 2:50pm Current [...] Anxiety acute October 27, 2024 1:38pm Congenital ikqmbq-olgtvuf-vchab reflux acute October 27, 2024 1:38pm Current [...] 1:38pm Anxiety acute November 09 3:21pm Congenital lpiuka-yehysvk-okrij reflux acute November 09, 2024 3:21pm Current [...] 3:21pm Anxiety acute November 19 8:30am Congenital elvffz-bvrjzjh-hcjus reflux acute November 19, 2024 8:30am Current [...] 8:30am Anxiety acute November 27 2:18pm Congenital irwzls-nsezjpm-idvrw reflux acute 2024 2:18pm Current every day nicotine vaping acute November 27, 2024 2:18pm Elevated serum creatinine acute November 27, 2024 2:18pm FH: hemophilia acute November 2:18pm Kidney disease acute November 2:18pm Obesity affecting acute November 27, 2024 2:18pm acute November 27 2:18pm Supervision of normal first acute November 27, 2024 2:18pm Anxiety acute December 08, 2 025 9:33am Congenital pywvmg-trmutfn-upziq reflux acute 2024 9:33am Current every day nicotine vaping acute December 08 9:33am Elevated serum creatinine acute December 08, 2024 9:33am FH: hemophilia acute November 9:33am Kidney disease acute November 9:33am Obesity affecting acute December 08, 2024 9:33am acute December 08, 2 025 9:33am Supervision of normal first acute December 08 9:33am Anxiety acute December 17, 2 025 3:44pm Congenital rlhhms-pycqjqs-bwore reflux acute 2024 3:44pm Current every day nicotine vaping acute December 17 3:44pm Elevated serum creatinine acute December 17, 2024 3:44pm FH: hemophilia acute November 3:44pm Kidney disease acute November 3:44pm Obesity affecting acute December 17, 2024 3:44pm acute December 17, 2 025 3:44pm Supervision of normal first acute December 17 3:44pm [facility] Work Phone: 1([phone]) [phone] Evaluation note* Diagnosis Onset Date Resolution Status Admit Date Anxiety acute September 01, 2024 2:50pm Congenital nearxm-mrdfzvi-ctplb reflux acute September 01, 2024 2:50pm Current every day nicotine vaping acute September 01, 2024 2: 50pm Elevated serum creatinine acute September 01, 2024 2:50pm FH: hemophilia acute September 01, 2 025 2:50pm Obesity affecting acute September 01, 2024 2:50pm acute September 01, 2024 2:50pm Supervision of normal first acute September 01, 2024 2: 50pm Anxiety acute September 28, 2024 2:50pm Congenital oaqmya-cohglxk-flmvi reflux acute September 28, 2024 2:50pm Current [...] Anxiety acute October 27, 2024 1:38pm Congenital vxdoba-exrrxza-npdgp reflux acute October 27, 2024 1:38pm Current [...] 1:38pm Anxiety acute November 09 3:21pm Congenital lqgpzb-tzptjlq-omjlc reflux acute November 09, 2024 3:21pm Current [...] 3:21pm Anxiety acute November 19 8:30am Congenital aamsrc-jaouuxc-cnpbd reflux acute November 19, 2024 8:30am Current [...] 8:30am Anxiety acute November 27 2:18pm Congenital faapoh-vzblonj-uzsfw reflux acute 2024 2:18pm Current every day nicotine vaping acute November 27, 2024 2:18pm Elevated serum creatinine acute November 27, 2024 2:18pm FH: hemophilia acute November 2:18pm Kidney disease acute November 2:18pm Obesity affecting acute November 27, 2024 2:18pm acute November 27 2:18pm Supervision of normal first acute November 27, 2024 2:18pm Anxiety acute December 08, 025 9:33am Congenital yvxmwd-plsydbv-louaf reflux acute 2024 9:33am Current every day nicotine vaping acute December 08 9:33am Elevated serum creatinine acute December 08, 2024 9:33am FH: hemophilia acute November 9:33am Kidney disease acute November 9:33am Obesity affecting acute December 08, 2024 9:33am acute December 08, 2 025 9:33am Supervision of normal first acute December 08 9:33am Anxiety acute December 17, 2 025 3:44pm Congenital gsbkfh-twyzejt-amwip reflux acute 2024 3:44pm Current every day nicotine vaping acute December 17 3:44pm Elevated serum creatinine acute December 17, 2024 3:44pm FH: hemophilia acute November 3:44pm Kidney disease acute November 3:44pm Obesity affecting acute December 17, 2024 3:44pm acute December 17, 2 025 3:44pm Supervision of normal first acute December 17 3:44pm Anxiety acute December 22, 025 12:54pm Congenital zuoerj-dghqwig-lnclo reflux acute 2024 12:54pm Current every day nicotine vaping acute December 22 12:54pm Elevated serum creatinine acute December 22, 2024 12:54pm FH: hemophilia acute November 12:54pm Kidney disease acute November 12:54pm Obesity affecting acute December 22, 2024 12:54pm acute December 22, 025 12:54pm Supervision of normal first acute December 22 12:54pm [facility] Work Phone: 1([phone]) 444-197405-06-2025 Evaluation note* Diagnosis Onset Date Resolution Status Admit Date Anxiety acute September 01, 2024 2:50pm Congenital vpzdtq-npnwpya-rwope reflux acute September 01, 2024 2:50pm Current every day nicotine vaping acute September 01, 2024 2: 50pm Elevated serum creatinine acute September 01, 2024 2:50pm FH: hemophilia acute September 01, 2 025 2:50pm Obesity affecting acute September 01, 2024 2:50pm acute September 01, 2024 2:50pm Supervision of normal first acute September 01, 2024 2: 50pm Anxiety acute September 28, 2024 2:50pm Congenital ctsuqj-ckgweno-bfjoz reflux acute September 28, 2024 2:50pm Current [...] Anxiety acute October 27, 2024 1:38pm Congenital cstvvw-xgxoppi-rtmln reflux acute October 27, 2024 1:38pm Current [...] 1:38pm Anxiety acute November 09 3:21pm Congenital nyroki-iohushu-llqid reflux acute November 09, 2024 3:21pm Current [...] 3:21pm Anxiety acute November 19 8:30am Congenital dxxcir-rnqrwst-jwjst reflux acute November 19, 2024 8:30am Current [...] 8:30am Anxiety acute November 27 2:18pm Congenital quhrgy-hpyjlly-qhxhl reflux acute 2024 2:18pm Current every day nicotine vaping acute November 27, 2024 2:18pm Elevated serum creatinine acute November 27, 2024 2:18pm FH: hemophilia acute November 2:18pm Kidney disease acute November 2:18pm Obesity affecting acute November 27, 2024 2:18pm acute November 27 2:18pm Supervision of normal first acute November 27, 2024 2:18pm Anxiety acute December 08, 2 025 9:33am Congenital wmhwfc-jxyymnd-xewjw reflux acute 2024 9:33am Current every day nicotine vaping acute December 08 9:33am Elevated serum creatinine acute December 08, 2024 9:33am FH: hemophilia acute November 9:33am Kidney disease acute November 9:33am Obesity affecting acute December 08, 2024 9:33am acute December 08, 025 9:33am Supervision of normal first acute December 08 9:33am Anxiety acute December 17, 2 025 3:44pm Congenital gaqbey-dxdfgnx-khsla reflux acute 2024 3:44pm Current every day nicotine vaping acute December 17 3:44pm Elevated serum creatinine acute December 17, 2024 3:44pm FH: hemophilia acute November 3:44pm Kidney disease acute November 3:44pm Obesity affecting acute December 17, 2024 3:44pm acute December 17, 2 025 3:44pm Supervision of normal first acute December 17 3:44pm Anxiety acute December 22, 2 025 12:54pm Congenital faydal-ndlyixv-ghsye reflux acute 2024 12:54pm Current every day nicotine vaping acute December 22 12:54pm Elevated serum creatinine acute December 22, 2024 12:54pm FH: hemophilia acute November 12:54pm Kidney disease acute November 12:54pm Obesity affecting acute December 22, 2024 12:54pm acute December 22, 2 025 12:54pm Supervision of normal first acute December 22 12:54pm Anxiety acute December 30, 2024 2:50pm Congenital syjslz-tzxwsjf-lsosh reflux acute Sept 2024 2:50pm Current every day nicotine vaping acute December 30, 2 025 2:50pm Elevated serum creatinine acute December 30, 2024 2:50pm FH: hemophilia acute December 30, 2024 2:50pm Kidney disease acute December 30, 2024 2:50pm Obesity affecting acute December 30, 2024 2:50pm acute December 30, 2024 2:50pm Supervision of normal first acute December 30, 025 2:50pm [facility] Work Phone: 1([phone]) 761-586704-08-2025 Evaluation note* Diagnosis Onset Date Resolution Status Admit Date Anxiety acute August 04 10:37am Congenital kiyphh-qgzqypo-nxadk reflux acute Apr2024 10:37am Current every day nicotine vaping acute August 04, 2024 10:37am Elevated serum creatinine acute August 04, 2024 10:37am FH: hemophilia acute August 04, 2024 10:37am Obesity affecting acute August 04, 2024 10:37am acute August 04 10:37am Supervision of normal first acute August 04, 2024 10:37am Recurrent UTI resolved August 04, 2024 10:37am Anxiety acute September 01, 2024 2:50pm Congenital bizdop-brkeqvt-heijs reflux acute September 01, 2024 2:50pm Current every day nicotine vaping acute September 01, 2024 2: 50pm Elevated serum creatinine acute September 01, 2024 2:50pm FH: hemophilia acute September 01, 2 025 2:50pm Obesity affecting acute September 01, 2024 2:50pm acute September 01, 2024 2:50pm Supervision of normal first acute September 01, 2024 2: 50pm Anxiety acute September 28, 2024 2:50pm Congenital oodctc-ezbjqny-bgoru reflux acute September 28, 2024 2:50pm Current [...] Anxiety acute October 27, 2024 1:38pm Congenital zfskey-tqfhhzo-wbsxh reflux acute October 27, 2024 1:38pm Current [...] 1:38pm Anxiety acute November 09 3:21pm Congenital bwxcnd-xxdyzww-wjnwo reflux acute November 09, 2024 3:21pm Current every day nicotine vaping acute November 09, 2024 3:21pm Elevated serum creatinine acute November 09, 2024 3:21pm FH: hemophilia acute November 09, 2024 3:21pm Kidney disease acute November 09, 2024 3:21pm Obesity affecting acute November 09, 2024 3:21pm acute November 09 3:21pm Supervision of normal first acute November 09, 2024 3:21pm [facility] Work Phone: 1([phone]) 855-941104-08-2025 Evaluation note* Diagnosis Onset Date Resolution Status Admit Date Anxiety acute August 04 10:37am Congenital vauflx-lcyugon-ddbkf reflux acute Apr2024 10:37am Current every day nicotine vaping acute August 04, 2024 10:37am Elevated serum creatinine acute August 04, 2024 10:37am FH: hemophilia acute August 04, 2024 10:37am Obesity affecting acute August 04, 2024 10:37am acute August 04 10:37am Supervision of normal first acute August 04, 2024 10:37am Recurrent UTI resolved August 04, 2024 10:37am Anxiety acute September 01, 2024 2:50pm Congenital gdxudm-ymmbrlb-halfm reflux acute September 01, 2024 2:50pm Current every day nicotine vaping acute September 01, 2024 2: 50pm Elevated serum creatinine acute September 01, 2024 2:50pm FH: hemophilia acute September 01, 2 025 2:50pm Obesity affecting acute September 01, 2024 2:50pm acute September 01, 2024 2:50pm Supervision of normal first acute September 01, 2024 2: 50pm Anxiety acute September 28, 2024 2:50pm Congenital aeeuxc-zuttaxg-dcwbc reflux acute September 28, 2024 2:50pm Current [...] Anxiety acute October 27, 2024 1:38pm Congenital fdzduh-rfuovge-qzymc reflux acute October 27, 2024 1:38pm Current [...] 1:38pm Anxiety acute November 09 3:21pm Congenital ojhsay-humzchx-ojzop reflux acute November 09, 2024 3:21pm Current [...] 3:21pm Anxiety acute November 19 8:30am Congenital wsricr-ohqwtob-rviat reflux acute November 19, 2024 8:30am Current every day nicotine vaping acute November 19, 2024 8:30am Elevated serum creatinine acute November 19, 2024 8:30am FH: hemophilia acute November 19, 2024 8:30am Kidney disease acute November 19, 2024 8:30am Obesity affecting acute November 19, 2024 8:30am acute November 19 8:30am Supervision of normal first acute November 19, 2024 8:30am [facility] Work Phone: 1([phone]) 301-432204-08-2025 Evaluation note* Diagnosis Onset Date Resolution Status Admit Date Anxiety acute August 04 10:37am Congenital achygy-jabgohu-pdkup reflux acute Apr2024 10:37am Current every day nicotine vaping acute August 04, 2024 10:37am Elevated serum creatinine acute August 04, 2024 10:37am FH: hemophilia acute August 04, 2024 10:37am Obesity affecting acute August 04, 2024 10:37am acute August 04 10:37am Supervision of normal first acute August 04, 2024 10:37am Recurrent UTI resolved August 04, 2024 10:37am Anxiety acute September 01, 2024 2:50pm Congenital zvrdqc-wrzelul-fmcux reflux acute September 01, 2024 2:50pm Current every day nicotine vaping acute September 01, 2024 2: 50pm Elevated serum creatinine acute September 01, 2024 2:50pm FH: hemophilia acute September 01, 2 025 2:50pm Obesity affecting acute September 01, 2024 2:50pm acute September 01, 2024 2:50pm Supervision of normal first acute September 01, 2024 2: 50pm Anxiety acute September 28, 2024 2:50pm Congenital hcumpe-fdleicn-uxdfo reflux acute September 28, 2024 2:50pm Current [...] Anxiety acute October 27, 2024 1:38pm Congenital quidvn-yftdoxn-qfmxs reflux acute October 27, 2024 1:38pm Current [...] 1:38pm Anxiety acute November 09 3:21pm Congenital wodapk-uloblcv-jfsrl reflux acute November 09, 2024 3:21pm Current [...] 3:21pm Anxiety acute November 19 8:30am Congenital vxbogl-fijvkeb-izrzn reflux acute November 19, 2024 8:30am Current [...] 8:30am Anxiety acute November 27 2:18pm Congenital jvgjjj-tadnzxp-oprdr reflux acute 2024 2:18pm Current every day nicotine vaping acute November 27, 2024 2:18pm Elevated serum creatinine acute November 27, 2024 2:18pm FH: hemophilia acute November 2:18pm Kidney disease acute November 2:18pm Obesity affecting acute November 27, 2024 2:18pm acute November 27 2:18pm Supervision of normal first acute November 27, 2024 2:18pm [facility] Work Phone: 1(194) 403-177403-11-2025 Evaluation note* Diagnosis Onset Date Resolution Status Admit Date Anxiety acute July 07 2:50pm Current every day nicotine vaping acute July 07, 2024 2:50pm FH: hemophilia acute June 2:50pm Obesity affecting acute July 07, 2024 2:50pm acute July 07 2:50pm Recurrent UTI acute July 07, 2024 2:50pm Supervision of normal first acute July 07, 2024 2:50pm Anxiety acute August 04 10:37am Congenital tkxwed-cexwutg-tw nal reflux acute August 04, 2024 10:37am [...] Anxiety acute September 01, 2024 2:50pm Congenital vhawfr-eympkhp-bx nal reflux acute September 01, 2024 2: [...] Anxiety acute September 28, 2024 2:50pm Congenital xjphod-ufampzj-ki nal reflux acute September 28, 2024 2 [...] first acute September 28, 2024 2 :50pm [facility] Work Phone: 1([phone]) 501-675803-11-2025 Evaluation note* Diagnosis Onset Date Resolution Status Admit Date Anxiety acute July 07 2:50pm Current every day nicotine vaping acute July 07, 2024 2:50pm FH: hemophilia acute June 2:50pm Obesity affecting acute July 07, 2024 2:50pm acute July 07 2:50pm Recurrent UTI acute July 07, 2024 2:50pm Supervision of normal first acute July 07, 2024 2:50pm Anxiety acute August 04 10:37am Congenital lqmtgq-bsgjrax-yj nal reflux acute August 04, 2024 10:37am [...] Anxiety acute September 01, 2024 2:50pm Congenital rnrdte-rytpskn-tb nal reflux acute September 01, 2024 2: [...] Anxiety acute September 28, 2024 2:50pm Congenital addfny-dvbgsdr-qy nal reflux acute September 28, 2024 2 [...] Anxiety acute October 27, 2024 1:38pm Congenital zlwpnq-wpzyfgd-hq nal reflux acute October 27, 2024 1 [...] first acute October 27, 2024 1 :38pm [facility] Work Phone: [phone]) [phone] Evaluation note* Diagnosis Onset Date Resolution Status [...] 2:50pm Anxiety acute August 04 10:37am Congenital nxpxmn-oytlpdn-vxtsp reflux acute 2024 10:37am Current every day nicotine vaping acute August 04, 2024 10:37am Elevated serum creatinine acute August 04, 2024 10:37am FH: hemophilia acute August 04, 2024 10:37am Obesity affecting acute August 04, 2024 10:37am acute August 04 10:37am Recurrent UTI acute August 04, 2024 10:37am Supervision of normal first acute August 04, 2024 10:37am Anxiety acute September 01, 2024 2:50pm Congenital obkaoz-dgfuhzs-xkbny reflux acute September 01, 2024 2:50pm Current every day nicotine vaping acute September 01, 2024 2: 50pm Elevated serum creatinine acute September 01, 2024 2:50pm FH: hemophilia acute September 01, 2:50pm Obesity affecting acute September 01, 2024 2:50pm acute September 01, 2024 2:50pm Supervision of normal first acute September 01, 2024 2: 50pm [facility] Work Phone: 1([phone]) [phone] Evaluation note* Diagnosis Onset Date Resolution Status [...] 2:50pm Anxiety acute August 04 10:37am Congenital qeqpda-kkzzpja-kvixn reflux acute 2024 10:37am Current every day nicotine vaping acute August 04, 2024 10:37am Elevated serum creatinine acute August 04, 2024 10:37am FH: hemophilia acute August 04, 2024 10:37am Obesity affecting acute August 04, 2024 10:37am acute August 04 10:37am Recurrent UTI acute August 04, 2024 10:37am Supervision of normal first acute August 04, 2024 10:37am Anxiety acute September 01, 2024 2:50pm Congenital qqldik-neunvot-xsmjf reflux acute September 01, 2024 2:50pm Current every day nicotine vaping acute September 01, 2024 2: 50pm Elevated serum creatinine acute September 01, 2024 2:50pm FH: hemophilia acute September 01, 2 025 2:50pm Obesity affecting acute September 01, 2024 2:50pm acute September 01, 2024 2:50pm Supervision of normal first acute September 01, 2024 2: 50pm Anxiety acute September 28, 2024 2:50pm Congenital fzpkxp-njyaowz-mttwv reflux acute September 28, 2024 2:50pm Current [...] first acute September 28, 2024 2 :50pm [facility] Work Phone: 1(549) 402-356512-18-2024 NotePap Smear Specimen AdequacyDevalleywise [facility] [place] 2023 12:59amComment.Satisfactory for evaluation. No endocervical component is identified.[facility] A#[id number] Berger HospitalComment on above:Satisfactory for evaluation. No endocervical component is identified. 04-15-2024 NotePap Smear Specimen AdequacyDecorewell health greenville hospitaler 2023 12:59amComment. Satisfactory for evaluation. No endocervical component is identified.[facility] A#[id number] Berger HospitalComment on above:Satisfactory for evaluation. No endocervical component is identified.04-15-2024 Evaluation note * Diagnosis Onset Date Resolution Status Admit Date Recurrent UTI acute April 152023 11:20am Encounter for routine gynecological examination noneactive [facility] 2023 11:20am Anxiety acute June 04, [...] normal first acute July 07, 2024 2:50pm [facility] Work Phone: 1(964) 567-617512-18-2024 Evaluation note* Diagnosis Onset Date Resolution Status [...] 2:50pm Anxiety acute August 04 10:37am Congenital lfezji-kwlogde-rytnx reflux acute Apr2024 10:37am Current every day nicotine vaping acute August 04, 2024 10:37am Elevated serum creatinine acute August 04, 2024 10:37am FH: hemophilia acute August 04, 2024 10:37am Obesity affecting acute August 04, 2024 10:37am acute August 04 10:37am Recurrent UTI acute August 04, 2024 10:37am Supervision of normal first acute August 04, 2024 10:37am [facility] Work Phone: Progress note Author Susie Solomon [facility] Note Date/Time December 08, 2024 10 :10am [facility] [address] [place] [address], [address] [place] [address] OFFICE VISIT Date of Service: 12/08/24 MR#: [id number] Acct: [id number] Name: LUCIANO KENDALL Rep #: [id number] : 2000 Provider: ALEXANDRA Solomon Age/Sex: 24/F [place] [facility] [place]: Signed Intake Vital Signs 10/27/24 13:28 11/27/24 14:23 12/08/24 09:37 Height 5 ft 8 in 5 ft 8 in 5 ft 8 in Weight: 286 lb 8 oz BMI 43.5 BP 130/82 H Intake Visit Reasons: 36wk ob Chief 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..] 1-2 times per week duration: 60-90 minutes/day sid/baptism: None seatbelt use: always do you feel [...] disease N28.9 Elevated serum creatinine R79.89 Congenital msvatz-anxqucc-kzokx reflux Q62.7 Current every day nicotine vaping [...] and urine P/C ratio: 7/1: (3) Congenital gpcvyj-neaiwrs-vmhsp reflux: Status: Acute Comment: check urine func [...] Cosigner Signature: Date (if applicable) CC: ~ [facility] Work Phone: Progress note Author Nita Mcintosh [facility] Note Date/Time December 22, 2024 1: 20pm [facility] [address], [address] [place] [address] OFFICE VISIT Date of Service: 12/22/24 MR#: [id number] Acct: [id number] Name: LUCIANO KENDALL Rep #: [id number] : 2000 Provider: Dr. 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: No Is patient in pain?: No [...] : No PFSH PFSH Medical History Congenital ugzdje-dgzclhq-jqmxr reflux Gallstones UTI (urinary tract infection) Asthma Surgical History Hx of cholecystectomy Hx of tonsillectomy Family History Father Diabetes Type 1 Aunt Thyroid disorder Maternal Mother Thyroid disorder enlarged Grandmother Breast cancer Paternal Social History adopted: No household members: significant other 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al status: 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al 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/hazards: No pets and [...] 1-2 times per week duration: 60-90 minutes/day sid/baptism: None seatbelt use: always do you feel [...] disease N28.9 Elevated serum creatinine R79.89 Congenital hsjwrk-jengkzg-lsyks reflux Q62.7 Current every day nicotine vaping [...] and urine P/C ratio: 7/1: (3) Congenital wdibtr-osictqr-smzne reflux: Status: Acute Comment: check urine func [...] Cosign Signature: Date (if applicable) CC: ~ [facility] Work Phone: Reason for referral (narrative)No reason for referral information availableWTuscarawas Hospital Work Phone: Summary Purpose Family History [...] for Visit Chief Complaint Admit Date 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, 2024 11:20am UTI April 15, [...] 2024 2:5 0pm Supervision of normal first [facility] 2024 2:50pm Chief Complaint Admit Date 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, 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 11:20am UTI April 15, [...] Supervision of normal first Ma [facility] 2024 2:50pm Anxiety August 04, 2024 10:3 7am Congenital uzjcpo-gcwrhtl-lpxvv reflux A pril 2024 10:37am Current every [...] 1 2:53pm Supervision of normal first [facility] 2024 12:53pm Anxiety July 07, 2024 2:5 0pm Current every day nicotine vaping July 07, 2024 2:50pm FH: hemophilia July 07, 2024 2:5 0pm Obesity affecting July 07, 2024 2:50pm July 07, 2024 2:5 0pm Recurrent UTI July 07, 2024 2:5 0pm Supervision of normal first [facility] 2024 2:50pm Anxiety August 04, 2024 10:3 7am Congenital atjnkb-dlcgjzu-weozb reflux A pril 2024 10:37am Current every day nicotine vaping August 04, 2024 10:37am Elevated serum creatinine August 04 10:37am FH: hemophilia August 04, 2024 10:3 7am Obesity affecting August 04, 2 025 10:37am August 04, 2024 10:3 7am Recurrent UTI August 04, 2024 10:3 7am Supervision of normal first Ap ril 2024 10:37am Anxiety September 01, 2024 2:50pm Congenital apljoq-bugcrul-vpezx reflux M ay 2024 2:50pm Current every [...] Supervision of normal first Ma [facility] 2024 2:50pm Anxiety August 04, 2024 10:3 7am Congenital cxfgdc-ufycumt-jxnms reflux A pril 2024 10:37am Current every day nicotine vaping August 04, 2024 10:37am Elevated serum creatinine August 04 10:37am FH: hemophilia August 04, 2024 10:3 7am Obesity affecting August 04, 2 025 10:37am August 04, 2024 10:3 7am Recurrent UTI August 04, 2024 10:3 7am Supervision of normal first Ap ril 2024 10:37am Anxiety September 01, 2024 2:50pm Congenital yronxo-pxkvduu-iztpp reflux M ay 2024 2:50pm Current every day nicotine vaping August 2:50pm Elevated serum creatinine September 01, 2024 2:50pm FH: hemophilia September 01, 2024 2:50pm Obesity affecting September 01 2:50pm September 01, 2024 2:50pm Supervision of normal first Ma y 2024 2:50pm Anxiety September 28, 2024 2:50p m Congenital njlbgg-yogrkpk-jluwe reflux J une 2024 2:50pm Current every [...] Supervision of normal first Ma [facility] 2024 2:50pm Anxiety August 04, 2024 10:3 7am Congenital xwseio-gihwkgu-qalgj reflux A pril 2024 10:37am Current every day nicotine vaping August 04, 2024 10:37am Elevated serum creatinine August 04 10:37am FH: hemophilia August 04, 2024 10:3 7am Obesity affecting August 04, 2 025 10:37am August 04, 2024 10:3 7am Recurrent UTI August 04, 2024 10:3 7am Supervision of normal first Ap ril 2024 10:37am Anxiety September 01, 2024 2:50pm Congenital fhjhnf-nfisbbv-nwrcw reflux M ay 2024 2:50pm Current every day nicotine vaping August 2:50pm Elevated serum creatinine September 01, 2024 2:50pm FH: hemophilia September 01, 2024 2:50pm Obesity affecting September 01 2:50pm September 01, 2024 2:50pm Supervision of normal first Ma y 2024 2:50pm Anxiety September 28, 2024 2:50p m Congenital ldwmhj-tndirur-hoceg reflux J une 2024 2:50pm Current every [...] Supervision of normal first Ma [facility] 2024 2:50pm Anxiety August 04, 2024 10:3 7am Congenital lcybuh-bzjhprq-hdfuj reflux A pril 2024 10:37am Current every day nicotine vaping August 04, 2024 10:37am Elevated serum creatinine August 04 10:37am FH: hemophilia August 04, 2024 10:3 7am Obesity affecting August 04, 2 025 10:37am August 04, 2024 10:3 7am Recurrent UTI August 04, 2024 10:3 7am Supervision of normal first Ap ril 2024 10:37am Anxiety September 01, 2024 2:50pm Congenital usqcyg-lsgnqxz-nsnmr reflux M ay 2024 2:50pm Current every day nicotine vaping August 2:50pm Elevated serum creatinine September 01, 2024 2:50pm FH: hemophilia September 01, 2024 2:50pm Obesity affecting September 01 2:50pm September 01, 2024 2:50pm Supervision of normal first Ma y 2024 2:50pm Anxiety September 28, 2024 2:50p m Congenital eebsfo-pcnlmkg-lcaaw reflux J une 2024 2:50pm Current every [...] Anxiety October 27, 2024 1:38p m Congenital gaycmg-ofmzmca-qvgjz reflux J gary 2024 1:38pm Current every [...] Anxiety August 04, 2024 10:3 7am Congenital lufghm-dydvlhy-lpglv reflux A pril 2024 10:37am Current every day nicotine vaping August 04, 2024 10:37am Elevated serum creatinine August 04 10:37am FH: hemophilia August 04, 2024 10:3 7am Obesity affecting August 04, 2 025 10:37am August 04, 2024 10:3 7am Supervision of normal first Ap ril 2024 10:37am Recurrent UTI August 04, 2024 10:3 7am Anxiety September 01, 2024 2:50pm Congenital fkhizh-tzlhfta-txptj reflux M ay 2024 2:50pm Current every day nicotine vaping August 2:50pm Elevated serum creatinine September 01, 2024 2:50pm FH: hemophilia September 01, 2024 2:50pm Obesity affecting September 01 2:50pm September 01, 2024 2:50pm Supervision of normal first Ma y 2024 2:50pm Anxiety September 28, 2024 2:50p m Congenital shfgsh-oaebscr-jsaco reflux J une 2024 2:50pm Current every [...] Anxiety October 27, 2024 1:38p m Congenital imejbe-agboipu-cjfis reflux J gary 2024 1:38pm Current every [...] Anxiety November 09, 2024 3:21 pm Congenital lrvxic-afauhlp-rydjn reflux J gary 2024 3:21pm Current every [...] Anxiety August 04, 2024 10:3 7am Congenital rirtpg-olkoigi-zuiet reflux A pril 2024 10:37am Current every day nicotine vaping August 04, 2024 10:37am Elevated serum creatinine August 04 10:37am FH: hemophilia August 04, 2024 10:3 7am Obesity affecting August 04, 2 025 10:37am August 04, 2024 10:3 7am Supervision of normal first Ap ril 2024 10:37am Recurrent UTI August 04, 2024 10:3 7am Anxiety September 01, 2024 2:50pm Congenital reebiq-qswtiym-uuljt reflux M ay 2024 2:50pm Current every day nicotine vaping August 2:50pm Elevated serum creatinine September 01, 2024 2:50pm FH: hemophilia September 01, 2024 2:50pm Obesity affecting September 01 2:50pm September 01, 2024 2:50pm Supervision of normal first Ma y 2024 2:50pm Anxiety September 28, 2024 2:50p m Congenital ithxzs-jfyxccl-jqdji reflux J une 2024 2:50pm Current every [...] Anxiety October 27, 2024 1:38p m Congenital twhucr-xeztrsg-vhaue reflux J gary 2024 1:38pm Current every [...] Anxiety November 09, 2024 3:21 pm Congenital boebhn-cssgyhi-dvpnl reflux J gary 2024 3:21pm Current every day nicotine vaping October 272024 3:21pm Elevated serum creatinine November 09 3:21pm FH: hemophilia November 09, 2024 3:21 pm Kidney disease November 09, 2024 3:21 pm Obesity affecting November 09, 2 025 3:21pm November 09, 2024 3:21 pm Supervision of normal first Ju ly 2024 3:21pm Anxiety November 19, 2024 8:30 am Congenital rlmvmu-mblfxsz-mdafd reflux J gary 2024 8:30am Current every [...] Anxiety August 04, 2024 10:3 7am Congenital zeofgd-nzjttif-yegni reflux A pril 2024 10:37am Current every day nicotine vaping August 04, 2024 10:37am Elevated serum creatinine August 04 10:37am FH: hemophilia August 04, 2024 10:3 7am Obesity affecting August 04, 2 025 10:37am August 04, 2024 10:3 7am Supervision of normal first Ap ril 2024 10:37am Recurrent UTI August 04, 2024 10:3 7am Anxiety September 01, 2024 2:50pm Congenital opuwcu-djfukxr-wsmfn reflux M ay 2024 2:50pm Current every day nicotine vaping August 2:50pm Elevated serum creatinine September 01, 2024 2:50pm FH: hemophilia September 01, 2024 2:50pm Obesity affecting September 01 2:50pm September 01, 2024 2:50pm Supervision of normal first Ma y 2024 2:50pm Anxiety September 28, 2024 2:50p m Congenital esrvhf-ymlgvvk-uousm reflux J une 2024 2:50pm Current every [...] Anxiety October 27, 2024 1:38p m Congenital crkstw-jdgyyrt-qooua reflux J gary 2024 1:38pm Current every [...] Anxiety November 09, 2024 3:21 pm Congenital tuaaju-ojchptk-vxtof reflux J gary 2024 3:21pm Current every day nicotine vaping October 272024 3:21pm Elevated serum creatinine November 09 3:21pm FH: hemophilia November 09, 2024 3:21 pm Kidney disease November 09, 2024 3:21 pm Obesity affecting November 09, 2 025 3:21pm November 09, 2024 3:21 pm Supervision of normal first Ju ly 2024 3:21pm Anxiety November 19, 2024 8:30 am Congenital eqhmot-zzmbcan-dlgwm reflux J gary 2024 8:30am Current every day nicotine vaping October 282024 8:30am Elevated serum creatinine November 19 8:30am FH: hemophilia November 19, 2024 8:30 am Kidney disease November 19, 2024 8:30 am Obesity affecting November 19, 2 025 8:30am November 19, 2024 8:30 am Supervision of normal first Ju ly 2024 8:30am Anxiety November 27, 2024 2:1 8pm Congenital wcmddj-mnmechh-qlplf reflux A ugust 2024 2:18pm Current every [...] Date Anxiety September 01, 2024 2:50pm Congenital trqrdz-xigrvbb-dulyp reflux M ay 2024 2:50pm Current every day nicotine vaping August 2:50pm Elevated serum creatinine September 01, 2024 2:50pm FH: hemophilia September 01, 2024 2:50pm Obesity affecting September 01 2:50pm September 01, 2024 2:50pm Supervision of normal first Ma y 2024 2:50pm Anxiety September 28, 2024 2:50p m Congenital dwvdhs-cvkcgzn-zzggh reflux J une 2024 2:50pm Current every [...] Anxiety October 27, 2024 1:38p m Congenital bewtyt-wxquepo-dcfnt reflux J gary 2024 1:38pm Current every [...] Anxiety November 09, 2024 3:21 pm Congenital qpmysf-bgisvdy-xxqlj reflux J gary 2024 3:21pm Current every day nicotine vaping October 272024 3:21pm Elevated serum creatinine November 09 3:21pm FH: hemophilia November 09, 2024 3:21 pm Kidney disease November 09, 2024 3:21 pm Obesity affecting November 09, 2 025 3:21pm November 09, 2024 3:21 pm Supervision of normal first Ju ly 2024 3:21pm Anxiety November 19, 2024 8:30 am Congenital tffmgs-dtzehcg-itkat reflux J gary 2024 8:30am Current every day nicotine vaping October 282024 8:30am Elevated serum creatinine November 19 8:30am FH: hemophilia November 19, 2024 8:30 am Kidney disease November 19, 2024 8:30 am Obesity affecting November 19, 2 025 8:30am November 19, 2024 8:30 am Supervision of normal first Ju ly 2024 8:30am Anxiety November 27, 2024 2:1 8pm Congenital ylmbnx-hmjkkds-zukxj reflux A ugust 2024 2:18pm Current every day nicotine vaping November 27, 2024 2:18pm Elevated serum creatinine November 27 2:18pm FH: hemophilia November 27, 2024 2:1 8pm Kidney disease November 27, 2024 2:1 8pm Obesity affecting November 27, 2024 2:18pm November 27, 2024 2:1 8pm Supervision of normal first Au fat[facility] 2024 2:18pm Anxiety December 08, 2024 9: 33am Congenital baoilp-vpixlew-ufoex reflux A ugust 2024 9:33am Current every [...] Date Anxiety September 01, 2024 2:50pm Congenital zgfyvb-pymsmtf-vfhnr reflux M ay 2024 2:50pm Current every day nicotine vaping August 2:50pm Elevated serum creatinine September 01, 2024 2:50pm FH: hemophilia September 01, 2024 2:50pm Obesity affecting September 01 2:50pm September 01, 2024 2:50pm Supervision of normal first Ma y 2024 2:50pm Anxiety September 28, 2024 2:50p m Congenital gqpexw-swwsjjn-unqdh reflux J une 2024 2:50pm Current every [...] Anxiety October 27, 2024 1:38p m Congenital fyexnf-mdyvbpt-nkptc reflux J gary 2024 1:38pm Current every [...] Anxiety November 09, 2024 3:21 pm Congenital qzgfuq-keuvsij-sdxuv reflux J gary 2024 3:21pm Current every day nicotine vaping October 272024 3:21pm Elevated serum creatinine November 09 3:21pm FH: hemophilia November 09, 2024 3:21 pm Kidney disease November 09, 2024 3:21 pm Obesity affecting November 09, 2 025 3:21pm November 09, 2024 3:21 pm Supervision of normal first Ju ly 2024 3:21pm Anxiety November 19, 2024 8:30 am Congenital eprpmh-ctlcksc-eovyn reflux J gary 2024 8:30am Current every day nicotine vaping October 282024 8:30am Elevated serum creatinine November 19 8:30am FH: hemophilia November 19, 2024 8:30 am Kidney disease November 19, 2024 8:30 am Obesity affecting November 19, 2 025 8:30am November 19, 2024 8:30 am Supervision of normal first Ju ly 2024 8:30am Anxiety November 27, 2024 2:1 8pm Congenital dzeblc-chvuusk-hksms reflux A ugust 2024 2:18pm Current every day nicotine vaping November 27, 2024 2:18pm Elevated serum creatinine November 27 2:18pm FH: hemophilia November 27, 2024 2:1 8pm Kidney disease November 27, 2024 2:1 8pm Obesity affecting November 27, 2024 2:18pm November 27, 2024 2:1 8pm Supervision of normal first [facility] 2024 2:18pm Anxiety December 08, 2024 9: 33am Congenital jjtetw-strzxds-njjtn reflux A ugust 2024 9:33am Current every day nicotine vaping December 08, 2024 9:33am Elevated serum creatinine December 08, 2 025 9:33am FH: hemophilia December 08, 2024 9: 33am Kidney disease December 08, 2024 9: 33am Obesity affecting December 08, 2024 9:33am December 08, 2024 9: 33am Supervision of normal first [facility] 2024 9:33am Anxiety December 17, 2024 3: 44pm Congenital vnfzwc-osrnrhs-lqtkm reflux A ugust 2024 3:44pm Current every day nicotine vaping December 17, 2024 3:44pm Elevated serum creatinine December 17, 2 025 3:44pm FH: hemophilia December 17, 2024 3: 44pm Kidney disease December 17, 2024 3: 44pm Obesity affecting December 17, 2024 3:44pm December 17, 2024 3: 44pm Supervision of normal first [facility] 2024 3:44pm Chief Complaint Admit Date 21 [...] Date Anxiety September 01, 2024 2:50pm Congenital mqclag-gdzzuio-scqpj reflux M ay 2024 2:50pm Current every day nicotine vaping August 2:50pm Elevated serum creatinine September 01, 2024 2:50pm FH: hemophilia September 01, 2024 2:50pm Obesity affecting September 01 2:50pm September 01, 2024 2:50pm Supervision of normal first Ma y 2024 2:50pm Anxiety September 28, 2024 2:50p m Congenital uehfet-zxuwocr-daavv reflux J une 2024 2:50pm Current every [...] Anxiety October 27, 2024 1:38p m Congenital ujligk-eotppnt-fydyg reflux J gary 2024 1:38pm Current every [...] Anxiety November 09, 2024 3:21 pm Congenital nhugfc-kolhnll-vnsuo reflux J gary 2024 3:21pm Current every day nicotine vaping October 272024 3:21pm Elevated serum creatinine November 09 3:21pm FH: hemophilia November 09, 2024 3:21 pm Kidney disease November 09, 2024 3:21 pm Obesity affecting November 09, 2 025 3:21pm November 09, 2024 3:21 pm Supervision of normal first Ju ly 2024 3:21pm Anxiety November 19, 2024 8:30 am Congenital ybcfdr-bfoiztp-cabiu reflux J gary 2024 8:30am Current every day nicotine vaping October 282024 8:30am Elevated serum creatinine November 19 8:30am FH: hemophilia November 19, 2024 8:30 am Kidney disease November 19, 2024 8:30 am Obesity affecting November 19, 2 025 8:30am November 19, 2024 8:30 am Supervision of normal first Ju ly 2024 8:30am Anxiety November 27, 2024 2:1 8pm Congenital awcwjd-kmsgrbt-zcjsb reflux A ugust 2024 2:18pm Current every day nicotine vaping November 27, 2024 2:18pm Elevated serum creatinine November 27 2:18pm FH: hemophilia November 27, 2024 2:1 8pm Kidney disease November 27, 2024 2:1 8pm Obesity affecting November 27, 2024 2:18pm November 27, 2024 2:1 8pm Supervision of normal first [facility] 2024 2:18pm Anxiety December 08, 2024 9: 33am Congenital xxntya-zkdpuke-jjfpm reflux A ugust 2024 9:33am Current every day nicotine vaping December 08, 2024 9:33am Elevated serum creatinine December 08, 2 025 9:33am FH: hemophilia December 08, 2024 9: 33am Kidney disease December 08, 2024 9: 33am Obesity affecting December 08, 2024 9:33am December 08, 2024 9: 33am Supervision of normal first [facility] 2024 9:33am Anxiety December 17, 2024 3: 44pm Congenital gfuuox-rtompxa-hqxav reflux A ugust 2024 3:44pm Current every day nicotine vaping December 17, 2024 3:44pm Elevated serum creatinine December 17, 2 025 3:44pm FH: hemophilia December 17, 2024 3: 44pm Kidney disease December 17, 2024 3: 44pm Obesity affecting December 17, 2024 3:44pm December 17, 2024 3: 44pm Supervision of normal first [facility] 2024 3:44pm Anxiety December 22, 2024 12 :54pm Congenital rovzrl-drvanok-vwlae reflux A ugust 2024 12:54pm Current every [...] Date Anxiety September 01, 2024 2:50pm Congenital tlovyj-ljwjksv-ezdjh reflux M ay 2024 2:50pm Current every day nicotine vaping August 2:50pm Elevated serum creatinine September 01, 2024 2:50pm FH: hemophilia September 01, 2024 2:50pm Obesity affecting September 01 2:50pm September 01, 2024 2:50pm Supervision of normal first Ma y 2024 2:50pm Anxiety September 28, 2024 2:50p m Congenital tjvkgu-fxpjech-rcfvr reflux J une 2024 2:50pm Current every [...] Anxiety October 27, 2024 1:38p m Congenital uqaztt-bsbqmin-yoapv reflux J gary 2024 1:38pm Current every [...] Anxiety November 09, 2024 3:21 pm Congenital cwbqlh-tblnpgm-ngeta reflux J gary 2024 3:21pm Current every day nicotine vaping October 272024 3:21pm Elevated serum creatinine November 09 3:21pm FH: hemophilia November 09, 2024 3:21 pm Kidney disease November 09, 2024 3:21 pm Obesity affecting November 09, 2 025 3:21pm November 09, 2024 3:21 pm Supervision of normal first Ju ly 2024 3:21pm Anxiety November 19, 2024 8:30 am Congenital pgpnsi-gazhcic-cvvgn reflux J gary 2024 8:30am Current every day nicotine vaping October 282024 8:30am Elevated serum creatinine November 19 8:30am FH: hemophilia November 19, 2024 8:30 am Kidney disease November 19, 2024 8:30 am Obesity affecting November 19, 2 025 8:30am November 19, 2024 8:30 am Supervision of normal first Ju ly 2024 8:30am Anxiety November 27, 2024 2:1 8pm Congenital qtfdog-jtaothn-nwkex reflux A ugust 2024 2:18pm Current every day nicotine vaping November 27, 2024 2:18pm Elevated serum creatinine November 27 2:18pm FH: hemophilia November 27, 2024 2:1 8pm Kidney disease November 27, 2024 2:1 8pm Obesity affecting November 27, 2024 2:18pm November 27, 2024 2:1 8pm Supervision of normal first [facility] 2024 2:18pm Anxiety December 08, 2024 9: 33am Congenital mknyjc-rxkglqc-ibysw reflux A ug2024 9:33am Current every day nicotine vaping December 08, 2024 9:33am Elevated serum creatinine December 08, 2 025 9:33am FH: hemophilia December 08, 2024 9: 33am Kidney disease December 08, 2024 9: 33am Obesity affecting December 08, 2024 9:33am December 08, 2024 9: 33am Supervision of normal first Au [facility] 2024 9:33am Anxiety December 17, 2024 3: 44pm Congenital fgbyuq-qcwildd-gpkiq reflux A ug2024 3:44pm Current every day nicotine vaping December 17, 2024 3:44pm Elevated serum creatinine December 17, 2 025 3:44pm FH: hemophilia December 17, 2024 3: 44pm Kidney disease December 17, 2024 3: 44pm Obesity affecting December 17, 2024 3:44pm December 17, 2024 3: 44pm Supervision of normal first [facility]ina [facility] 2024 3:44pm Anxiety December 22, 2024 12 :54pm Congenital fpbfem-yctjfbb-llkxf reflux A ugust 2024 12:54pm Current every day nicotine vaping December 22, 2024 12:54pm Elevated serum creatinine December 22, 2 025 12:54pm FH: hemophilia December 22, 2024 12 :54pm Kidney disease December 22, 2024 12 :54pm Obesity affecting December 22, 2024 12:54pm December 22, 2024 12 :54pm Supervision of normal first Valentina ham 2024 12:54pm Anxiety December 30, 2024 2:50pm Congenital xdydwl-pbdgaeo-yhlzj reflux S eptember 2024 2:50pm Current every [...] Anxiety September 28, 2024 2:50p m Congenital jetydn-sevvapg-vucce reflux J une 2024 2:50pm Current every [...] Anxiety October 27, 2024 1:38p m Congenital zosvbs-lalxtmf-ycupt reflux J gary 2024 1:38pm Current every [...] Anxiety November 09, 2024 3:21 pm Congenital pxenpg-ubgdkuj-iqqaq reflux J gary 2024 3:21pm Current every day nicotine vaping October 272024 3:21pm Elevated serum creatinine November 09 3:21pm FH: hemophilia November 09, 2024 3:21 pm Kidney disease November 09, 2024 3:21 pm Obesity affecting November 09, 2 025 3:21pm November 09, 2024 3:21 pm Supervision of normal first Ju ly 2024 3:21pm Anxiety November 19, 2024 8:30 am Congenital mmxudq-vjeywig-wmdmp reflux J gary 2024 8:30am Current every day nicotine vaping October 282024 8:30am Elevated serum creatinine November 19 8:30am FH: hemophilia November 19, 2024 8:30 am Kidney disease November 19, 2024 8:30 am Obesity affecting November 19, 2 025 8:30am November 19, 2024 8:30 am Supervision of normal first [facility] 2024 8:30am Anxiety November 27, 2024 2:1 8pm Congenital caboey-qoezxdm-jreum reflux A 2024 2:18pm Current every day nicotine vaping November 27, 2024 2:18pm Elevated serum creatinine November 27 2:18pm FH: hemophilia November 27, 2024 2:1 8pm Kidney disease November 27, 2024 2:1 8pm Obesity affecting November 27, 2024 2:18pm November 27, 2024 2:1 8pm Supervision of normal first [facility] 2024 2:18pm Anxiety December 08, 2024 9: 33am Congenital qvjyrn-ynwdfne-hvtgj reflux A ugust 2024 9:33am Current every day nicotine vaping December 08, 2024 9:33am Elevated serum creatinine December 08, 2 025 9:33am FH: hemophilia December 08, 2024 9: 33am Kidney disease December 08, 2024 9: 33am Obesity affecting December 08, 2024 9:33am December 08, 2024 9: 33am Supervision of normal first Au [facility] 2024 9:33am Anxiety December 17, 2024 3: 44pm Congenital ceiune-gckrqfo-icwif reflux A ugust 2024 3:44pm Current every day nicotine vaping December 17, 2024 3:44pm Elevated serum creatinine December 17, 2 025 3:44pm FH: hemophilia December 17, 2024 3: 44pm Kidney disease December 17, 2024 3: 44pm Obesity affecting December 17, 2024 3:44pm December 17, 2024 3: 44pm Supervision of normal first Au [facility] 2024 3:44pm Anxiety December 22, 2024 12 :54pm Congenital rumdhq-vbmwpql-nhcny reflux A ugust 2024 12:54pm Current every day nicotine vaping December 22, 2024 12:54pm Elevated serum creatinine December 22, 2 025 12:54pm FH: hemophilia December 22, 2024 12 :54pm Kidney disease December 22, 2024 12 :54pm Obesity affecting December 22, 2024 12:54pm December 22, 2024 12 :54pm Supervision of normal first Au fat[facility]ata 2024 12:54pm Anxiety December 30, 2024 2:50pm Congenital iyvkrs-oafqqxr-yktxx reflux S eptemb2024 2:50pm Current every day nicotine vaping 2024 2:50pm Elevated serum creatinine December 30, 2024 2:50pm FH: hemophilia December 30, 2024 2:50pm Kidney disease December 30, 2024 2:50pm Obesity affecting December 2:50pm December 30, 2024 2:50pm Supervision of normal first Se pt2024 2:50pm Anxiety January 04, 2025 3:05pm Congenital iojkob-ysjmrip-ozahv reflux S eptemb2024 3:05pm Current every day nicotine vaping Decem 2024 3:05pm Elevated serum creatinine January 04, 2025 3:05pm FH: hemophilia January 04, 2025 3:05pm Kidney disease January 04, 2025 3:05pm Obesity affecting December 3:05pm January 04, 2025 3:05pm Supervision of normal first Se pt2024 3:05pm Additional Source Comments INFORMATION SOURCE (unrecogn ized section and content) DATE CREATED AUTHOR 11/06/2017 [facility] DATE CREATED AUTHOR AUTHOR'S ORGANIZ ATION 11/20/2017 [facility] DATE CREATED AUTHOR AUTHOR'S ORGANIZ ATION 11/27/2017 [facility] DATE CREATED AUTHOR AUTHOR'S ORGANIZ ATION 12/20/2017 [facility] DATE CREATED AUTHOR AUTHOR'S ORGANIZ ATION 05/13/2019 [facility] DATE CREATED AUTHOR AUTHOR'S ORGANIZ ATION 01/06/2025 [facility] Care Teams (unrecognized sec tion and [...] 10, 2024 End: April 10, 2024 Dr. Donadl Waller MD Referring Provider Active Start: April [...] 2024 End: August 04, 2024 Jennifer Willard ORDNANCE ENGINEER, ORDNANCE ENGINEER-C Attending Provider Active Start: August 04, 2024 End: August 04, 2024 Team Status: Inactive Member Role Status Dates Dr. Donald Waller MD Primary Care Provider Active Start: August 04, 2024 End: August 04, 2024 Jennifer Willard ORDNANCE ENGINEER, ORDNANCE ENGINEER-C Attending Provider Active Start: August 04, 2024 End: August 04, 2024 Jennifer Willard ORDNANCE ENGINEER, ORDNANCE ENGINEER-C Referring Provider Active Start: August 04, 2024 [...] 2024 End: September 28, 2024 Jennifer Willard ORDNANCE ENGINEER, ORDNANCE ENGINEER-C Attending Provider Active Start: September 28, 2024 [...] 2024 End: August 04, 2024 Jennifer Willard ORDNANCE ENGINEER, ORDNANCE ENGINEER-C Attending Provider Active Start: August 04, 2024 End: August 04, 2024 Team Status: Inactive Member Role/Relationship Status Dates Dr. Donald Waller MD Primary Care Provider Active Start: August 04, 2024 End: August 04, 2024 Jennifer Willard ORDNANCE ENGINEER, ORDNANCE ENGINEER-C Attending Provider Active Start: August 04, 2024 End: August 04, 2024 Jennifer Willard ORDNANCE ENGINEER, ORDNANCE ENGINEER-C Referring Provider Active Start: August 04, 2024 [...] 2024 End: September 28, 2024 Jennifer Willard ORDNANCE ENGINEER, ORDNANCE ENGINEER-C Attending Provider Active Start: September 28, 2024 [...] 2024 End: October 27, 2024 Jennifer Willard ORDNANCE ENGINEER, ORDNANCE ENGINEER-C Attending Provider Active Start: October 27, 2024 End: October 27, 2024 Team Status: Active Member Role/Relationship Status Dates Dr. Donald Waller MD Primary Care Provider Active Start: October 27, 2024 Jennifer Willard ORDNANCE ENGINEER, ORDNANCE ENGINEER-C Attending Provider Active Start: October 27, 2024 Jennifer Willard ORDNANCE ENGINEER, ORDNANCE ENGINEER-C Referring Provider Active Start: October 27, 2024 Team Status: Inactive Member Role/Relationship Status Dates Dr. Donald Waller MD Primary Care Provider Active Start: October 27, 2024 End: October 27, 2024 Jennifer Willard ORDNANCE ENGINEER, ORDNANCE ENGINEER-C Attending Provider Active Start: October 27, 2024 End: October 27, 2024 Jennifer Willard ORDNANCE ENGINEER, ORDNANCE ENGINEER-C Referring Provider Active Start: October 27, 2024 End: October 27, 2024 Team Status: Inactive Member Role/Relationship Status Dates Dr. Donald Waller MD Primary Care Provider Active Start: August 04, 2024 End: August 04, 2024 Dr. Donald Waller MD Referring Provider Active Start: August 04, 2024 End: August 04, 2024 Jennifer Willard ORDNANCE ENGINEER, ORDNANCE ENGINEER-C Attending Provider Active Start: August 04, 2024 End: August 04, 2024 Team Status: Inactive Member Role/Relationship Status Dates Dr. Donald Waller MD Primary Care Provider Active Start: August 04, 2024 End: August 04, 2024 Jennifer Willard ORDNANCE ENGINEER, ORDNANCE ENGINEER-C Attending Provider Active Start: August 04, 2024 End: August 04, 2024 Jennifer Willard ORDNANCE ENGINEER, ORDNANCE ENGINEER-C Referring Provider Active Start: August 04, 2024 [...] 2024 End: September 28, 2024 Jennifer Willard ORDNANCE ENGINEER, ORDNANCE ENGINEER-C Attending Provider Active Start: September 28, 2024 [...] 2024 End: October 27, 2024 Jennifer Willard ORDNANCE ENGINEER, ORDNANCE ENGINEER-C Attending Provider Active Start: October 27, 2024 End: October 27, 2024 Team Status: Inactive Member Role/Relationship Status Dates Dr. Donald Waller MD Primary Care Provider Active Start: October 27, 2024 End: October 27, 2024 Jennifer Willard ORDNANCE ENGINEER, ORDNANCE ENGINEER-C Attending Provider Active Start: October 27, 2024 End: October 27, 2024 Jennifer Willard ORDNANCE ENGINEER, ORDNANCE ENGINEER-C Referring Provider Active Start: October 27, 2024 [...] 2024 End: October 27, 2024 Jennifer Willard ORDNANCE ENGINEER, ORDNANCE ENGINEER-C Attending Provider Active Start: October 27, 2024 End: October 27, 2024 Team Status: Inactive Member Role/Relationship Status Dates Dr. Donald Waller MD Primary Care Provider Active Start: October 27, 2024 End: October 27, 2024 Jennifer Willard ORDNANCE ENGINEER, ORDNANCE ENGINEER-C Attending Provider Active Start: October 27, 2024 End: October 27, 2024 Jennifer Willard ORDNANCE ENGINEER, ORDNANCE ENGINEER-C Referring Provider Active Start: October 27, 2024 [...] 2024 End: November 19, 2024 Dr. Nita Mcintohs MD Attending Provider Active Start: November 19, [...] End: September 28, 2024 Jennifer Willard NP, ORDNANCE ENGINEER-C Attending Provider Active Start: September 28, 2024 [...] 2024 End: October 27, 2024 Jennifer Willard ORDNANCE ENGINEER, ORDNANCE ENGINEER-C Attending Provider Active Start: October 27, 2024 End: October 27, 2024 Team Status: Inactive Member Role/Relationship Status Dates Dr. Donald Waller MD Primary Care Provider Active Start: October 27, 2024 End: October 27, 2024 Jennifer Willard ORDNANCE ENGINEER, ORDNANCE ENGINEER-C Attending Provider Active Start: October 27, 2024 End: October 27, 2024 Jennifer Willard ORDNANCE ENGINEER, ORDNANCE ENGINEER-C Referring Provider Active Start: October 27, 2024 [...] 2024 End: September 28, 2024 Jennifer Willard ORDNANCE ENGINEER, ORDNANCE ENGINEER-C Attending Provider Active Start: September 28, 2024 [...] 2024 End: October 27, 2024 Jennifer Willard ORDNANCE ENGINEER, ORDNANCE ENGINEER-C Attending Provider Active Start: October 27, 2024 End: October 27, 2024 Team Status: Inactive Member Role/Relationship Status Dates Dr. Donald Waller MD Primary Care Provider Active Start: October 27, 2024 End: October 27, 2024 Jennifer Willard ORDNANCE ENGINEER, ORDNANCE ENGINEER-C Attending Provider Active Start: October 27, 2024 End: October 27, 2024 Jennifer Willard ORDNANCE ENGINEER, ORDNANCE ENGINEER-C Referring Provider Active Start: October 27, 2024 [...] 2024 End: September 28, 2024 Jennifer Willard ORDNANCE ENGINEER, ORDNANCE ENGINEER-C Attending Provider Active Start: September 28, 2024 [...] 2024 End: October 27, 2024 Jennifer Willard ORDNANCE ENGINEER, ORDNANCE ENGINEER-C Attending Provider Active Start: October 27, 2024 End: October 27, 2024 Team Status: Inactive Member Role/Relationship Status Dates Dr. Donald Waller MD Primary Care Provider Active Start: October 27, 2024 End: October 27, 2024 Jennifer Willard ORDNANCE ENGINEER, ORDNANCE ENGINEER-C Attending Provider Active Start: October 27, 2024 End: October 27, 2024 Jennifer Willard ORDNANCE ENGINEER, ORDNANCE ENGINEER-C Referring Provider Active Start: October 27, 2024 [...] BE BASED ON THE PRIMARY CLINICAL RECORDS. [facility] [employer] [facility]. provides no warranty or guarantee of the accuracy or completeness of information in this document.
--- OUTSIDE RECORDS SUMMARY | 2025-01-06 07:41 | XMS RPT_ITS | CCD ---
Author Organization [facility] Care Team Providers Care Geological Science Teacher Name Role Phone [place], [place] A Unavailable [...] Dr. Donald Waller MD Referring Provider Noemi FNA-Magda Martínez Attending Provider Susie Solomon CNM Attending Provider [phone] Susie Solomon CNM Referring Provider Dr. Nita Mcintosh MD Attending Provider Dr. Nita Mcintosh MD Referring Provider Dr. Donald Waller MD Primary Care Provider Dr. Donald Waller MD Attending Provider Dr. Donald Waller MD Referring Provider Sudheer FAN-Jennifer Martínez Attending Provider Sudheer FAN-CJennifer Referring Provider Dr. Donald Wlaler MD Primary Care Provider Sridhar PITTMAN, Dr. Donald Pittman Referring Provider [phone] Manolo Coburn DO, Dr. Davis Attending Provider Dinh Livingston Attending Provider Sridhar PITTMAN, Dr. Donald Pittman Primary Care Provider [phone] Sridhar PITTMAN, Dr. Donald Pittman Referring Provider Sridhar PITTMAN, Dr. Donald Pittman Attending Provider [phone] Sridhar PITTMAN, Dr. Donald Pittman Primary Care Provider Sridhar PITTMAN, Dr. Donald Pittman Referring Provider [phone] Arnaldo PITTMAN, Dr. Moya Attending Provider Arnaldo PITTMAN, Dr. Moya Referring Provider Ky PITTMAN, Dr. Sena Attending Provider Sridhar PITTMAN, Dr. Donald Pittman Primary Care Provider Sridhar PITTMAN, Dr. Donald Pittman Referring Provider [phone] Sudheer FAN-CJennifer Attending Provider Ky PITTMAN, Dr. Sena Attending Provider Sudheer 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Jennifer Referring Provider Susie Solomon CNM Attending Provider [phone] Sridhar PITTMAN, Dr. Donald Pittman Primary Care Provider Arnaldo PITTMAN, Dr. Moya Attending Provider Dr. Nita Mcintosh MD Referring Provider [phone] Sridhar PITTMAN, Dr. Donald Pittman Primary Care [...] Schinner, Donald E Primary Care Unavailable Sudheer 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, Jennifer Referring Unavailable Sudheer 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, Jennifer Attending Unavailable Schinner, Donald E Referring [...] Attending Unavailable Nita Mcintosh Referring Unavailable Sudheer 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, Jennifer Referring Unavailable [place] 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, Jennifer Attending Unavailable Schinner, Donald E Primary [...] Dates Sig (Normalized) Sig (Original) bacillus coagulans [id number] unt chewable tablet (17 sources) Start: 05-26-2024 [...] 60 2 August 04, 2024 12:00am Pnv No.975-Ey-Un7-Dha-Epa -Fish 400 mcg-35 mg- 25 mg-5 mg tablet,chewable (17 sources) Start: 05-26-2024 Pnv No.774-Jd-Il6-Dha -Epa-Fish 400 mcg-35 mg- 25 mg-5 mg [...] (20 sources) Congenital vesicoureterorenal reflux; Translations: [Congenital kmaole-bohofzu-unnli reflux] Onset: 5 08-04-2024 Chronic Comment on [...] Test Name Value Interpretation Reference Range Facility Call Or Contact Centre Team Leader Office Visit Reporton 01-04-2025 Call Or Contact Centre Team Leader Office Visit Report [facility] [address], [address] [place] [address] OFFICE VISIT Date of Service: 01/04/25 MR#: [id number] Acct: [id number] Name: LUCIANO KENDALL Rep #: [id number] : 2000 Provider: Dr. Nita motley MD Age/Sex: 24/F [place] [facility] [place]: Signed Intake Vital Signs 11/09/24 15:36 12/30/24 15:11 01/04/25 15:10 Height 5 ft 8 in 5 ft 8 in 5 ft 8 in Weight: 297 lb 7 oz BMI 45.2 BP 129/85 H Intake Visit Reasons: 40 wk ob *Happy Due Date* Termite Control Technician Required: No Allergies No Known Allergies Allergy [...] : No PFSH PFSH Medical History Congenital gvypfu-imbpuhj-tktgm reflux Gallstones UTI (urinary tract infection) Asthma Surgical History Hx of cholecystectomy Hx of tonsillectomy Family History Father Diabetes Type 1 Aunt Thyroid disorder Maternal Mother Thyroid disorder enlarged Grandmother Breast cancer Paternal Social History adopted: No household members: significant other 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al status: employed 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al exposures/hazards: No [...] 1-2 times per week duration: 60-90 minutes/day sid/congregational: None seatbelt use: always do you feel [...] nipt. 07/07/ (more content not included)... Normal [facility] Laboratory - Chemistry and C hemistry - challengeOrdered By: Susan Coburn on 12-30-2024 Glucose Ql (U) Negative [facility] Laboratory - UrinalysisOrder ed By: Susan Coburn on 12-30-2024 Protein Ql (U) Negative [facility] Call Or Contact Centre Team Leader Office Visit Reporton 12-30-2024 Call Or Contact Centre Team Leader Office Visit Report [facility] [address], [address] [place] [address] OFFICE VISIT Date of Service: 12/30/24 MR#: [id number] Acct: [id number] Name: LUCIAON KENDALL Rep #: [id number] : 2000 Provider: Dr. Susan Lau DO Age/Sex: 24/F [place] [facility] [place] Status: Signed Intake Vital Signs 11/09/24 15:36 12/22/24 12:59 12/30/24 15:08 12/30/24 15:11 Height 5 ft 8 in 5 ft 8 in 5 ft 8 in 5 ft 8 in Weight: 296 lb 4 oz BMI 45.0 BP 119/82 H Intake Visit Reasons: 39 wk ob Termite Control Technician Required: No Is patient in pain?: No [...] : No PFSH PFSH Medical History Congenital xxguhs-jkaztfv-pohjg reflux Gallstones UTI (urinary tract infection) Asthma Surgical History Hx of cholecystectomy Hx of tonsillectomy Family History Father Diabetes Type 1 Aunt Thyroid disorder Maternal Mother Thyroid disorder enlarged Grandmother Breast cancer Paternal Social History adopted: No household members: significant other 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al status: employed 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al exposures/hazards: No [...] 1-2 times per week duration: 60-90 minutes/day sid/congregational: None seatbelt use: always do you feel [...] 07/07/24 -???- (more content not included)... Normal [facility] Laboratory - Chemistry and C hemistry - challengeOrdered By: Nita Mcintosh on 12-22-2024 Glucose Ql (U) Negative [facility] Laboratory - UrinalysisOrder ed By: Nita Mcintosh on 12-22-2024 Protein Ql (U) Negative [facility] Call Or Contact Centre Team Leader Office Visit Reporton 12-22-2024 Call Or Contact Centre Team Leader Office Visit Report [facility] [address], [address] [place] [address] OFFICE VISIT Date of Service: 12/22/24 MR#: [id number] Acct: [id number] Name: LUCIANO KENDALL Rep #: [id number] : 2000 Provider: Dr. Nita motley MD Age/Sex: 24/F [place] [facility] [place] Status: Signed Intake Vital Signs 11/09/24 15:36 11/19/24 08:40 12/17/24 15:50 12/22/24 12:59 Height 5 ft 8 in 5 ft 8 in 5 ft 8 in 5 ft 8 in Weight: 293 lb BMI 44.5 BP 119/83 H Intake Visit Reasons: 38 wk ob Termite Control Technician Required: No Is patient in pain?: No [...] : No PFSH PFSH Medical History Congenital lhwrak-qvdogyy-pyiul reflux Gallstones UTI (urinary tract infection) Asthma Surgical History Hx of cholecystectomy Hx of tonsillectomy Family History Father Diabetes Type 1 Aunt Thyroid disorder Maternal Mother Thyroid disorder enlarged Grandmother Breast cancer Paternal Social History adopted: No household members: significant other 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al status: employed 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 occupational exposures/hazards: No [...] 1-2 times per week duration: 60-90 minutes/day sid/congregational: None seatbelt use: always do you feel [...] accepts ni (more content not included)... Normal [facility] Rule out Beta Strep (Grp. B) on 12-21-2024 [place] Group B Beta Streptococcus is not isolated. Normal [facility] Comment on above: Performed By: #### L 100.0100, L509.8002, L3890.6006 #### [facility] [address] [place], [address] Laboratory - Chemistry and C hemistry - challengeOrdered By: Nita Mcintosh on 12-17-2024 Glucose Ql (U) Negative [facility] Laboratory - UrinalysisOrder ed By: Nita Mcintosh on 12-17-2024 Protein Ql (U) Negative [facility] Call Or Contact Centre Team Leader Office Visit Reporton 12-17-2024 Call Or Contact Centre Team Leader Office Visit Report [facility] [address], [address] [place] [address] OFFICE VISIT Date of Service: 12/17/24 MR#: [id number] Acct: [id number] Name: LUCIANO KENDALL Rep #: [id number] : 2000 Provider: Dr. Nita motley MD Age/Sex: 24/F [place] [facility] [place]: Signed Intake Vital Signs 11/09/24 15:36 12/08/24 09:37 12/17/24 15:48 12/17/24 15:50 Height 5 ft 8 in 5 ft 8 in 5 ft 8 in 5 ft 8 in Weight: 291 lb 2 oz BMI 44.2 BP 138/87 H Intake Visit Reasons: 37 wk ob Termite Control Technician Required: No Is patient in pain?: No [...] : No PFSH PFSH Medical History Congenital mnzciw-suigbme-vovnj reflux Gallstones UTI (urinary tract infection) Asthma Surgical History Hx of cholecystectomy Hx of tonsillectomy Family History Father Diabetes Type 1 Aunt Thyroid disorder Maternal Mother Thyroid disorder enlarged Grandmother Breast cancer Paternal Social History adopted: No household members: significant other current occupational status: employed 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 occupational exposures/hazards: No [...] 1-2 times per week duration: 60-90 minutes/day sid/congregational: None seatbelt use: always do you feel [...] dates. accep (more content not included)... Normal [facility] Screening beta-hemolytic Str eptococcus cultureOrdered By: Nita Mcintosh on 12-17-2024 Beta-hemolytic Streptococcus culture Group B Beta Streptococcus is not isolated. [facility] Laboratory - Chemistry and C hemistry - challengeOrdered By: Susie Solomon on 12-08-2024 Glucose Ql (U) Negative [facility] Laboratory - UrinalysisOrder ed By: Susie Solomon on 12-08-2024 Protein Ql (U) Negative [facility] Call Or Contact Centre Team Leader Office Visit Reporton 12-08-2024 Call Or Contact Centre Team Leader Office Visit Report [facility] [address], [address] [place] [address] OFFICE VISIT Date of Service: 12/08/24 MR#: [id number] Acct: [id number] Name: LUCIANO KENDALL Rep #: [id number] : 2000 Provider: ALEXANDRA Coughlin ams Age/Sex: 24/F [place] [facility] [place]: Signed Intake Vital Signs 10/27/24 13:28 11/27/24 14:23 12/08/24 09:37 Height 5 ft 8 in 5 ft 8 in 5 ft 8 in Weight: 286 lb 8 oz BMI 43.5 BP 130/82 H Intake Visit Reasons: 36wk ob 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 Is patient in pain?: No [...] year?: No PFSH PFSH Medical History Congenital zrqejw-wdoogeq-roavj reflux Gallstones UTI (urinary tract infection) Asthma Surgical History Hx of cholecystectomy Hx of tonsillectomy Family History Father Diabetes Type 1 Aunt Thyroid disorder Maternal Mother Thyroid disorder enlarged Grandmother Breast cancer Paternal Social History adopted: No household members: significant other current occupational status: employed 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 occupational exposures/hazards: No [...] 1-2 times per week duration: 60-90 minutes/day sid/congregational: None seatbelt use: always do you feel safe at home: Yes additional social history: significant other- Jaun History 1 Elective abortions Hx Para 0 [...] nipt. 07/07/24 (more content not included)... Normal [facility] Laboratory - Chemistry and C hemistry - challengeOrdered By: Nita Mcintosh on 11-27-2024 Glucose Ql (U) Negative [facility] Laboratory - UrinalysisOrder ed By: Nita Mcintosh on 11-27-2024 Protein Ql (U) Negative [facility] Call Or Contact Centre Team Leader Office Visit Reporton 11-27-2024 Call Or Contact Centre Team Leader Office Visit Report [facility] [address], [address] [place] [address] OFFICE VISIT Date of Service: 11/27/24 MR#: [id number] Acct: [id number] Name: LUCIANO KENDALL Rep #: [id number] : 2000 Provider: Dr. Nita moltey MD Age/Sex: 24/F [place] [facility] [place]: Signed Intake Vital Signs 10/27/24 13:28 11/09/24 15:36 11/19/24 08:40 11/27/24 14:23 Height 5 ft 8 in 5 ft 8 in 5 ft 8 in 5 ft 8 in Weight: 282 lb 3 oz BMI 42.9 BP 138/85 H Intake Visit Reasons: 34wk ob Termite Control Technician Required: No Is patient in pain?: No [...] : No PFSH PFSH Medical History Congenital cslbvt-zyqgwub-fjszy reflux Gallstones UTI (urinary tract infection) Asthma Surgical History Hx of cholecystectomy Hx of tonsillectomy Family History Father Diabetes Type 1 Aunt Thyroid disorder Maternal Mother Thyroid disorder enlarged Grandmother Breast cancer Paternal Social History adopted: No household members: significant other current occupational status: employed 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 occupational exposures/hazards: No [...] 1-2 times per week duration: 60-90 minutes/day sid/congregational: None seatbelt use: always do you feel [...] dates. accepts (more content not included)... Normal [facility] Urine Cultureon 11-21-2024 URC Below infection level. Mixed Gram Positive Organisms [place] Count <1000 MIXC Mixed contaminants. Submit a new specimen if indicated. Normal [facility] Comment on above: Performed By: #### M 100.2200, L100.0100 #### [facility] [address] [place], [place], [id number] Absolute lymphocyte countOrd ered By: Nita Corralesalta on 11-19-2024 Lymphocytes Auto (Unsp spec) [#/Vol] 2.77 10*3/uL 0.83-4.51 [facility] Absolute neutrophil countOrd ered By: Nita Corralesalta on 11-19-2024 Neutrophils (Bld) [#/Vol] 11.4 10*3/uL High 2.0-7.7 [facility] Automated lymphocyte count a s percentage of total leukocytesOrdered By: Nita Corralesalta on 11-19-2024 Lymphocytes/100 WBC Auto (Unsp spec) 17.0 % Low 19-41 [facility] Basophil percentageOrdered B y: Nita Corralesalta on 11-19-2024 Basophils/100 WBC (Bld) 0.4 % 0-1 [facility] CBC W/Diff, Automatedon 10-28 Absolute Lymph 2.77 X10 3/uL Normal 0.83-4.51 [facility] Comment on above: Performed By: #### M 100.2200, L100.0100 #### [facility] [address] [place], [place], [id number] Absolute Neut 11.4 X10 3/uL High 2.0-7.7 [facility] Comment on above: Performed By: #### M 100.2200, L100.0100 #### [facility] [address] [place], [address] Basophils/100 WBC (Bld) 0.4 % Normal 0-1 [facility] Comment on above: Performed By: #### M 100.2200, L100.0100 #### [facility] [address] [place], [address] Eosinophils/100 WBC (Bld) 1.2 % Normal 0-5 [facility] Comment on above: Performed By: #### M 100.2200, L100.0100 #### [facility] [address] [place], [address] Erythrocyte distribution width (RBC) [Ratio] 13.2 % Normal 11.6-14.6 [facility] Comment on above: Performed By: #### M 100.0, L100.0100 #### [facility] [address] [place], [address] Hematocrit (Bld) [Volume fraction] 37.2 % Normal 37-47 [facility] Comment on above: Performed By: #### M 100.2200, L100.0100 #### [facility] [address] [place], [address] Hemoglobin (Bld) [Mass/Vol] 12.5 g/dL Normal 12.0-15.0 [facility] Comment on above: Performed By: #### M 100.2200, L100.0100 #### [facility] [address] [place], [address] IG% 4.900 High 0.0-0.9 [facility] Comment on above: Result Comment: IG% - Immature Granulocytes (promyelocytes, myelocytes and metamyelocytes) > 1% indicates that a LEFT SHIFT is Present. Performed By: #### M 100.2200, L100.0100 #### [facility] [address] [place], [address] Lymphocytes/100 WBC (Bld) 17.0 % Low 19-41 [facility] Comment on above: Performed By: #### M 100.2200, L100.0100 #### [facility] [address] [place], [address] MCH (RBC) [Entitic mass] 29.8 pg Normal 27.0-32.0 [facility] Comment on above: Performed By: #### M 100.2200, L100.0100 #### [facility] [address] [place], [address] MCHC (RBC) [Mass/Vol] 33.6 g/dL Normal 32-36 [facility] Comment on above: Performed By: #### M 100.0, L100.0100 #### [facility] [address] [place], [address] MCV (RBC) [Entitic vol] 88.8 fL Normal 81-99 [facility] Comment on above: Performed By: #### M 100.0, L100.0100 #### [facility] [address] [place], [address] Monocytes/100 WBC (Bld) 6.2 % Normal 0-10 [facility] Comment on above: Performed By: #### M 100.2200, L100.0100 #### [facility] [address] [place], [address] Neutrophils/100 WBC (Bld) 70.3 % High 47-70 [facility] Comment on above: Performed By: #### M 100.2200, L100.0100 #### [facility] [address] [place], [address] Nucleated RBC (Bld) [#/Vol] 0 10*3/uL Normal 0-5 [facility] Comment on above: Performed By: #### M 100.2200, L100.0100 #### [facility] [address] [place], [address] Platelet mean volume (Bld) [Entitic vol] 11.0 fL Normal 6.2-12.0 [facility] Comment on above: Performed By: #### M 100.2200, L100.0100 #### [facility] [address] [place], [address] Platelets (Bld) [#/Vol] 192 10*3/uL Normal 150-450 [facility] Comment on above: Performed By: #### M 100.2200, L100.0100 #### [facility] [address] [place], [address] RBC (Bld) [#/Vol] 4.19 10*6/uL Low 4.2-5.4 [facility] Comment on above: Performed By: #### M 100.2200, L100.0100 #### [facility] [address] [place], [address] RDW SD 42.8 fl Normal 35.1-43.9 [facility] Comment on above: Performed By: #### M 100.2200, L100.0100 #### [facility] [address] [place], [address] WBC (Bld) [#/Vol] 16.3 10*3/uL High 4.4-11.0 [facility] Comment on above: Performed By: #### M 100.2200, L100.0100 #### [facility] [address] [place], [address] Eosinophil percentageOrdered By: Nita Mcintosh on 11-19-2024 Eosinophils/100 WBC (Bld) 1.2 % 0-5 [facility] Erythrocyte distribution wid th ratioOrdered By: Nita Mcintosh on 11-19-2024 Erythrocyte distribution width (RBC) [Ratio] 13.2 % 11.6-14.6 [facility] Erythrocyte distribution wid th standard deviationOrdered By: Nita Mcintosh on 11-19-2024 Erythrocyte distribution width (RBC) [Ratio] 42.8 fl 35.1-43.9 [facility] Hematocrit Auto (Bld) [Volum e fraction]Ordered By: Nita Mcintosh on 11-19-2024 Hematocrit (Bld) [Volume fraction] 37.2 % 37-47 [facility] Hemoglobin measurementOrdere d By: Nita Mcintosh on 11-19-2024 Hemoglobin (Bld) [Mass/Vol] 12.5 g/dL 12.0-15.0 [facility] Immature granulocytes/100 WB C Auto (Bld)Ordered By: Nita Mcintosh on 11-19-2024 Immature granulocytes/100 WBC (Bld) 4.900 % High 0.0-0.9 [facility] Comment on above: IG% - Immature Granu locytes (promyelocytes, myelocytes and metamyelocytes) > 1% indicates that a LEFT SHIFT is Present. Laboratory - Chemistry and C hemistry - challengeOrdered By: Nita Mcintosh on 11-19-2024 Bilirubin Ql (U) Negative [facility] Glucose Ql (U) Negative [facility] Ketones Ql (U) Negative [facility] pH (U) 6.5 [pH] [facility] Urobilinogen (U) [Mass/Vol] Negative [facility] Laboratory - Hematology and Cell countsOrdered By: Nita Mcintosh on 11-19-2024 Hemoglobin Ql (U) Negative [facility] Laboratory - Specimen inform ationOrdered By: Nita Mcintosh on 11-19-2024 Clarity (U) Cloudy [facility] Color (U) Yellow [facility] Laboratory - UrinalysisOrder ed By: Nita Mcintosh on 11-19-2024 Nitrite Ql (U) Negative [facility] Protein Ql (U) Negative [facility] MCV (mean corpuscular volume ) determinationOrdered By: Nita Mcintosh on 11-19-2024 MCV (RBC) [Entitic vol] 88.8 fL 81-99 [facility] Mean corpuscular hemoglobin (MCH) determinationOrdered By: Nita Mcintosh on 11-19-2024 MCH (RBC) [Entitic mass] 29.8 pg 27.0-32.0 [facility] Mean corpuscular hemoglobin concentration (MCHC) determinationOrdered By: Nita Mcintosh on 11-19-2024 MCHC (RBC) [Mass/Vol] 33.6 g/dL 32-36 [facility] Mean platelet volume determi nationOrdered By: Nita Mcintosh on 11-19-2024 Platelet mean volume (Bld) [Entitic vol] 11.0 fL 6.2-12.0 [facility] Monocyte percentageOrdered B y: Nita Mcintosh on 11-19-2024 Monocytes/100 WBC (Bld) 6.2 % 0-10 [facility] Neutrophil percentageOrdered By: Nita Mcintosh on 11-19-2024 Neutrophils/100 WBC (Bld) 70.3 % High 47-70 [facility] No Panel InformationOrdered By: Nita Mcintosh on 11-19-2024 Urine Leukocytes Positive [facility] Urine Non-Hemolyzed Blood Negative [facility] Nucleated red blood cell per centageOrdered By: Nita Mcintosh on 11-19-2024 Nucleated RBC/100 WBC (Bld) [Ratio] 0 % 0-5 [facility] Call Or Contact Centre Team Leader Office Visit Reporton 11-19-2024 Call Or Contact Centre Team Leader Office Visit Report [facility] [address], [address] [place] [address] OFFICE VISIT Date of Service: 11/19/24 MR#: [id number] Acct: [id number] Name: LUCIANO KENDALL Rep #: [id number] : 2000 Provider: Dr. Nita motley MD Age/Sex: 24/F [place] [facility] [place]: Signed Intake Vital Signs 11/09/24 15:36 11/19/24 08:40 Height 5 ft 8 in 5 ft 8 in Weight: 272 lb 6 oz BMI 41.4 BP 126/84 H Intake Visit Reasons: UA Chief Complaint: UA culture Termite Control Technician Required: No Is patient in pain?: No [...] drawn toda y. Urine sent for culture. [facility] Medical History Congenital halrjl-fnirnla-wvuju reflux Gallstones UTI (urinary tract infection) Asthma Surgical History Hx of cholecystectomy Hx of tonsillectomy Family History Father Diabetes Type 1 Aunt Thyroid disorder Maternal Mother Thyroid disorder enlarged Grandmother Breast cancer Paternal Social History adopted: No household members: significant other current occupational status: employed 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 occupational exposures/hazards: No [...] 1-2 times per week duration: 60-90 minutes/day sid/congregational: None seatbelt use: always do you feel [...] Visit Note (more content not included)... Normal [facility] Platelet countOrdered By: Amilcar Mcintosh on 11-19-2024 Platelets (Bld) [#/Vol] 192 10*3/uL 150-450 [facility] RBC Auto (Bld) [#/Vol]Ordere d By: Nita Mcintosh on 11-19-2024 RBC (Bld) [#/Vol] 4.19 10*6/uL Low 4.2-5.4 [facility] Urine cultureOrdered By: Dariusz Mcintosh on 11-19-2024 Bacteria identified Cx Nom (U) Positive Abnormal [facility] White blood cell (WBC) count Ordered By: Nita Mcintosh on 11-19-2024 WBC (Bld) [#/Vol] 16.3 10*3/uL High 4.4-11.0 [facility] CBC W/Diff, Automatedon 10-28 PATH REV Reviewed Normal [facility] Comment on above: Result Comment: SEE REPORT IN PATIENT'S EMR AMENDED REPORT 11/18/24 1111 PATH REV previously reported as: Bailey faustin Performed By: #### L 100.0100, L509.8002, L3890.6006 #### [facility] Laboratory [address] [place], [place] [address] [place], [address] Laboratory - Chemistry and C hemistry - challengeOrdered By: Nita Mcintosh on 11-09-2024 Glucose Ql (U) Negative [facility] Laboratory - UrinalysisOrder ed By: Nita Mcintosh on 11-09-2024 Protein Ql (U) Negative [facility] Call Or Contact Centre Team Leader Office Visit Reporton 11-09-2024 Call Or Contact Centre Team Leader Office Visit Report [address], [address] [place] [address] OFFICE VISIT Date of Service: 11/09/24 MR#: [id number] Acct: [id number] Name: LUCIANO KENDALL Rep #: [id number] : 2000 Provider: Dr. Nita motley MD Age/Sex: 24/F [place] [facility] [place]: Signed Intake Vital Signs 09/01/24 15:04 10/27/24 13:28 11/09/24 15:36 Height 5 ft 8 in 5 ft 8 in 5 ft 8 in Weight: 273 lb 4 oz BMI 41.5 BP 133/84 H Intake Visit Reasons: 32wk ob Termite Control Technician Required: No Is patient in pain?: No [...] : No PFSH PFSH Medical History Congenital guqmlz-flwjnrc-bzztt reflux Gallstones UTI (urinary tract infection) Asthma Surgical History Hx of cholecystectomy Hx of tonsillectomy Family History Father Diabetes Type 1 Aunt Thyroid disorder Maternal Mother Thyroid disorder enlarged Grandmother Breast cancer Paternal Social History adopted: No household members: significant other current occupational status: employed 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 occupational exposures/hazards: No [...] 1-2 times per week duration: 60-90 minutes/day sid/congregational: None seatbelt use: always do you feel [...] -???-???-???-???-???- ???-???- (more content not included)... Normal [facility] Absolute lymphocyte countOrd ered By: Susan Coburn on 10-27-2024 Lymphocytes Auto (Unsp spec) [#/Vol] 1.68 10*3/uL 0.83-4.51 [facility] Absolute neutrophil countOrd ered By: Susan Coburn on 10-27-2024 Neutrophils (Bld) [#/Vol] 15.3 10*3/uL High 2.0-7.7 [facility] Anion gap in Serum or Plasma Ordered By: Jennifer Willard on 10-27-2024 Anion gap [Moles/Vol] 14 mmol/L 5-15 [facility] BUN/creatinine ratioOrdered By: Jennifer Willard on 10-27-2024 Urea nitrogen/Creatinine [Mass ratio] 16.7 mg/mg 10-20 [facility] Bilirubin, totalOrdered By: Jennifer Willard on 10-27-2024 Bilirubin [Mass/Vol] 0.17 mg/dL 0.00-1.30 [facility] Blood band neutrophil count as percentage of total leukocytesOrdered By: Susan Coburn on 10-27-2024 Band form neutrophils/100 WBC (Bld) 12 % High 0-5 [facility] Blood eosinophils/100 leukoc ytesOrdered By: Susan Coburn on 10-27-2024 Eosinophils/100 WBC (Bld) 1 % 0-5 [facility] Blood lymphocytes/100 leukoc ytesOrdered By: Susan Coburn on 10-27-2024 Lymphocytes/100 WBC (Bld) 9 % Low 19-41 [facility] Blood monocytes/100 leukocyt esOrdered By: Susan Coburn on 10-27-2024 Monocytes/100 WBC (Bld) 4 % 0-10 [facility] Blood segmented neutrophils/ 100 leukocytesOrdered By: Susan Coburn on 10-27-2024 Segmented neutrophils/100 WBC (Bld) 70 % 47-70 [facility] Carbon dioxide, total [Moles /volume] in Central venous bloodOrdered By: Jennifer Willard on 10-27-2024 CO2 [Moles/Vol] 19.6 mmol/L Low 21.0-32.0 [facility] Chloride assayOrdered By: David Willard on 10-27-2024 Chloride [Moles/Vol] 104 mmol/L 98-108 [facility] Comprehensive Metabolic Prof ilon 10-27-2024 Albumin [Mass/Vol] 3.5 g/dL Normal 3.5-5.0 [facility] Comment on above: Performed By: #### L 500.4050 #### [facility] Laboratory [address] [place], [place], [address] Albumin/Globulin [Mass ratio] 1.1 {ratio} Normal 0.9-2.4 [facility] Comment on above: Performed By: #### L 500.4050 #### [facility] [address] [place], [address] ALK PHOS 81 U/L Normal 35-104 [facility] Comment on above: Performed By: #### L 500.4050 #### [facility] [address] [place], [address] ALT [Catalytic activity/Vol] 19 U/L Normal <=34 [facility] Comment on above: Performed By: #### L 500.4050 #### [facility] [address] [place], [address] AST [Catalytic activity/Vol] 18 U/L Normal <=31 [facility] Comment on above: Performed By: #### L 500.4050 #### [facility] [address] [place], [address] Bilirubin [Mass/Vol] 0.17 mg/dL Normal 0.00-1.30 [facility] Comment on above: Performed By: #### L 500.4050 #### [facility] [address] [place], [address] BUN/CRE 16.7 RATIO Normal 10-20 [facility] Comment on above: Performed By: #### L 500.4050 #### [facility] [address] [place], [address] Calcium [Mass/Vol] 9.3 mg/dL Normal 7.6-11.0 [facility] Comment on above: Performed By: #### L 500.4050 #### [facility] [address] [place], [address] Chloride [Moles/Vol] 104 mmol/L Normal 98-108 [facility] Comment on above: Performed By: #### L 500.4050 #### [facility] [address] [place], [address] CO2 [Moles/Vol] 19.6 mmol/L Low 21.0-32.0 [facility] Comment on above: Performed By: #### L 500.4050 #### [facility] [address] [place] [place], [address] Creatinine [Mass/Vol] 0.68 mg/dL Low 0.70-1.20 [facility] Comment on above: Performed By: #### L 500.4050 #### [facility] [address] [place], [address] GAP 14 Normal 5-15 [facility] Comment on above: Performed By: #### L 500.4050 #### [facility] [address] [place] [place], [address] GFR/1.73 sq M.predicted among non-blacks MDRD (S/P/Bld) [Vol rate/Area] 124 mL/min/{1.73_m2} Normal >60 [facility] Comment on above: Result Comment: mL/m in/1.73m2 CKD-EPI Creatinine Equation (2020) Performed By: #### L 500.4050 #### [facility] [address] [place], [address] Globulin (S) [Mass/Vol] 3.1 g/dL Normal 2.2-4.2 [facility] Comment on above: Performed By: #### L 500.4050 #### [facility] [address] [place] [place], [address] Glucose [Mass/Vol] 89 mg/dL Normal 70-99 [facility] Comment on above: Performed By: #### L 500.4050 #### [facility] [address] [place] [place], [address] Potassium [Moles/Vol] 3.7 mmol/L Normal 3.3-5.1 [facility] Comment on above: Performed By: #### L 500.4050 #### [facility] [address] [place], [place], [id number] Sodium [Moles/Vol] 137 mmol/L Normal 133-145 [facility] Comment on above: Performed By: #### L 500.4050 #### [facility] [address] [place], [place], [id number] T PROT 6.6 g/dL Normal 5.9-8.4 [facility] Comment on above: Performed By: #### L 500.4050 #### [facility] [address] [place], [place], [address] Urea nitrogen [Mass/Vol] 11 mg/dL Normal 4-19 [facility] Comment on above: Performed By: #### L 500.4050 #### [facility] [address] [place], [place], [address] Erythrocyte distribution wid th ratioOrdered By: Susan Coburn on 10-27-2024 Erythrocyte distribution width (RBC) [Ratio] 13.0 % 11.6-14.6 [facility] Erythrocyte distribution wid th standard deviationOrdered By: Susan Coburn on 10-27-2024 Erythrocyte distribution width (RBC) [Ratio] 42.5 fl 35.1-43.9 [facility] Glomerular filtration rate ( GFR) estimation/1.73 sq m using serum, plasma, or whole bOrdered By: Jennifer Willard on 10-27-2024 GFR/1.73 sq M.predicted among non-blacks MDRD (S/P/Bld) [Vol rate/Area] 124 mL/min/{1.73_m2} >60 [facility] Comment on above: mL/min/1.73m2 CKD-EP I Creatinine Equation (2020) HIVon 10-27-2024 HIV Non-Reactive Normal Nonreactive [facility] Comment on above: Result Comment: Non- Reactive Reactive Repeatedly reactive samples must be confirmed according to CDC recommended confirmatory algorithms. The subresults for either HIVAG or AHIV can be used as an aid in the selection of the confirmation algorithm for reactive samples. Send out specimens with Reactive results to [facility] for confirmation. Order the HIV antibody detection and differentiation: #[id number] Performed By: #### L 100.0100, L509.8002, L3890.6006 #### [facility] [address] [place], [address] Hematocrit Auto (Bld) [Volum e fraction]Ordered By: Susan Coburn on 10-27-2024 Hematocrit (Bld) [Volume fraction] 36.7 % Low 37-47 [facility] Hemoglobin measurementOrdere d By: Susan Coburn on 10-27-2024 Hemoglobin (Bld) [Mass/Vol] 12.2 g/dL 12.0-15.0 [facility] Laboratory - Chemistry and C hemistry - challengeOrdered By: Jennifer Willard on 10-27-2024 AST [Catalytic activity/Vol] 18 U/L <32 [facility] Laboratory - Chemistry and C hemistry - challengeOrdered By: Susan Coburn on 10-27-2024 Glucose Ql (U) Negative [facility] Laboratory - UrinalysisOrder ed By: Susan Coburn on 10-27-2024 Protein Ql (U) Negative [facility] MCV (mean corpuscular volume ) determinationOrdered By: Susan Coburn on 10-27-2024 MCV (RBC) [Entitic vol] 90.2 fL 81-99 [facility] Mean corpuscular hemoglobin (MCH) determinationOrdered By: Susan Coburn on 10-27-2024 MCH (RBC) [Entitic mass] 30.0 pg 27.0-32.0 [facility] Mean corpuscular hemoglobin concentration (MCHC) determinationOrdered By: Susan Coburn on 10-27-2024 MCHC (RBC) [Mass/Vol] 33.2 g/dL 32-36 [facility] Mean platelet volume determi nationOrdered By: Susan Coburn on 10-27-2024 Platelet mean volume (Bld) [Entitic vol] 11.3 fL 6.2-12.0 [facility] Myelocyte %Ordered By: Fátima Coburn on 10-27-2024 Myelocytes/100 WBC (Bld) 4 % High 0-0 [facility] No Panel InformationOrdered By: Susan Coburn on 10-27-2024 HIV (1&2) Antibody Non-Reactive Nonreactive [facility] Comment on above: Non-ReactiveReactive Repeatedly reactive samples must be confirmed according to CDC recommended confirmatory algorithms. The subresults for either HIVAG or AHIV can be used as an aid in the selection of the confirmation algorithm for reactive samples.Send out specimens with Reactive results to [facility] for confirmation.Order the HIV antibody detection and differentiation: #[id number] Call Or Contact Centre Team Leader Office Visit Reporton 10-27-2024 Call Or Contact Centre Team Leader Office Visit Report [facility] [address], [address] [place] [address] OFFICE VISIT Date of Service: 10/27/24 MR#: [id number] Acct: [id number] Name: LUCIANO KENDALL Rep #: [id number] : 2000 Provider: ANY dykes Age/Sex: 24/F [place] [facility] [place]: Signed Intake Vital Signs 09/01/24 15:04 09/28/24 14:56 10/27/24 13:27 10/27/24 13:28 Height 5 ft 8 in 5 ft 8 in 5 ft 8 in 5 ft 8 in Weight: 262 lb 265 lb 4 oz BMI 39.8 40.3 BP 122/76 H 133/87 H Intake Visit Reasons: 30wk ob Termite Control Technician Required: No Is patient in pain?: No [...] : No PFSH PFSH Medical History Congenital wspytn-eszjcjy-ecaij reflux Gallstones UTI (urinary tract infection) Asthma Surgical History Hx of cholecystectomy Hx of tonsillectomy Family History Father Diabetes Type 1 Aunt Thyroid disorder Maternal Mother Thyroid disorder enlarged Grandmother Breast cancer Paternal Social History adopted: No household members: significant other current occupational status: employed 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 occupational exposures/hazards: No [...] 1-2 times per week duration: 60-90 minutes/day sid/congregational: None seatbelt use: always do you feel [...] KW- CRL (more content not included)... Normal [facility] Platelet countOrdered By: Jamel Coburn on 10-27-2024 Platelets (Bld) [#/Vol] 204 10*3/uL 150-450 [facility] Platelet estimateOrdered By: Susan Coburn on 10-27-2024 Platelets LM Ql (Bld) ADEQUATE ADEQ [facility] Potassium measurement (mass/ volume)Ordered By: Jennifer Willard on 10-27-2024 Potassium (Unsp spec) [Mass/Vol] 3.7 mmol/L 3.3-5.1 [facility] Protein+Creatinine Ratio,Uri neon 10-27-2024 PROT:CRE RATIO UNABLE TO CALCULATE Normal 0-200 [facility] Comment on above: Performed By: #### M 100.2200, L100.0100 #### [facility] [address] [place], [address] PROTEIN,UR.RAN. < 6.0 Normal 0.0-12.0 [facility] Comment on above: Performed By: #### M 100.2200, L100.0100 #### [facility] [address] [place], [address] UR CREAT 42.10 mg/dL Normal 28.00-217.00 [facility] Comment on above: Performed By: #### M 100.2200, L100.0100 #### [facility] [address] [place], [address] RBC Auto (Bld) [#/Vol]Ordere d By: Susan Coburn on 10-27-2024 RBC (Bld) [#/Vol] 4.07 10*6/uL Low 4.2-5.4 [facility] Random urine creatinine mika urement (mass/volume)Ordered By: Jennifer Willard on 10-27-2024 Creatinine Unsp time (U) [Mass/Vol] 42.10 mg/dL 28.00-217.00 [facility] Review by pathologistOrdered By: Susan Coburn on 10-27-2024 Pathologist review Gutierrez (Unsp spec) [Interp] Bailey faustin [facility] Pathologist review Gutierrez (Unsp spec) [Interp] Reviewed [facility] Comment on above: Previous reported re sult: Bailey faustin Edited by: WALKER on 11/18/24:1111SEE REPORT IN PATIENT'S EMR AMENDED REPORT 11/18/24 1111 PATH REV previously reported as: Bailey faustin Serum creatinine measurement (mass/volume)Ordered By: Jennifer Willard on 10-27-2024 Creatinine [Mass/Vol] 0.68 mg/dL Low 0.70-1.20 [facility] Serum globulin measurementOr dered By: Jennifer Willard on 10-27-2024 Globulin (S) [Mass/Vol] 3.1 g/dL 2.2-4.2 [facility] Serum glucose measurement (m ass/volume)Ordered By: Jennifer Willard on 10-27-2024 Glucose [Mass/Vol] 89 mg/dL 70-99 [facility] Serum or plasma alanine terrazas otransferase (ALT) measurementOrdered By: Jennifer Willard on 10-27-2024 ALT [Catalytic activity/Vol] 19 U/L <35 [facility] Serum or plasma albumin mika urement (mass/volume)Ordered By: Jennifer Willard on 10-27-2024 Albumin [Mass/Vol] 3.5 g/dL 3.5-5.0 [facility] Serum or plasma albumin/glob ulin mass ratioOrdered By: Jennifer Willard on 10-27-2024 Albumin/Globulin [Mass ratio] 1.1 {ratio} 0.9-2.4 [facility] Serum or plasma alkaline lebron sphatase measurementOrdered By: Jennifer Willard on 10-27-2024 ALP [Catalytic activity/Vol] 81 U/L 35-104 [facility] Serum or plasma calcium mika urement (mass/volume)Ordered By: Jennifer Willard on 10-27-2024 Calcium [Mass/Vol] 9.3 mg/dL 7.6-11.0 [facility] Serum or plasma urea nitroge n measurement (mass/volume)Ordered By: Jennifer Willard on 10-27-2024 Urea nitrogen [Mass/Vol] 11 mg/dL 4-19 [facility] Sodium levelOrdered By: Constantine Willard on 10-27-2024 Sodium [Moles/Vol] 137 mmol/L 133-145 [facility] Syphilis Antibodieson 2024 Syphilis Abs Non-Reactive Normal Nonreactive [facility] Comment on above: Performed By: #### L 100.0100, L509.8002, L3890.6006 #### [facility] [address] [place], [place], [id number] Total cell countOrdered By: Susan Coburn on 10-27-2024 Cells counted Molgen (Bld/Tiss) [#] 100 MANUAL DIFF [facility] Total proteinOrdered By: Merlin Willard on 10-27-2024 Protein [Mass/Vol] 6.6 g/dL 5.9-8.4 [facility] Urine protein measurement (m ass/volume)Ordered By: Jennifer Willard on 10-27-2024 Protein (U) [Mass/Vol] mg/dL 0.0-12.0 [facility] Urine protein/creatinine mas s ratioOrdered By: Jennifer Willard on 10-27-2024 Protein/Creatinine (U) [Mass ratio] UNABLE TO CALCULATE mg/g CRE 0-200 [facility] White blood cell (WBC) count Ordered By: Susan Coburn on 10-27-2024 WBC (Bld) [#/Vol] 18.7 10*3/uL High 4.4-11.0 [facility] Glucose Challenge Gest 1H 50 anthony 10-10-2024 GLU GEST 50g 1H 110 mg/dL Normal 70-140 [facility] Comment on above: Performed By: #### L 501.0250 #### [facility] [address] [place], [address] Glucose measurement at 2 shakila rs post-dose gestational glucose tolerance testOrdered By: Susan Coburn on 10-10-2024 Glucose [Mass/Vol] 110 mg/dL 70-140 [facility] Laboratory - Chemistry and C hemistry - challengeOrdered By: Jennifer Willard on 09-28-2024 Glucose Ql (U) Negative [facility] Laboratory - UrinalysisOrder ed By: Jennifer Willard on 09-28-2024 Protein Ql (U) Negative [facility] Call Or Contact Centre Team Leader Office Visit Reporton 09-28-2024 Call Or Contact Centre Team Leader Office Visit Report [facility] [address], [address] [place] [address] OFFICE VISIT Date of Service: 09/28/24 MR#: [id number] Acct: [id number] Name: LUCIANO KENDALL Rep #: [id number] : 2000 Provider: ANY dykes Age/Sex: 24/F [place] [facility] [place]: Signed Intake Vital Signs 09/01/24 15:04 09/28/24 07:30 09/28/24 14:56 Height 5 ft 8 in 5 ft 8 in 5 ft 8 in Weight: 262 lb BMI 39.8 BP 122/76 H Intake Visit Reasons: 26wk ob Chief Complaint: 26 Week OB Termite Control Technician Required: No Is patient in pain?: No [...] : No PFSH PFSH Medical History Congenital sjkrly-nflqghn-truai reflux Gallstones UTI (urinary tract infection) Asthma Surgical History Hx of cholecystectomy Hx of tonsillectomy Family History Father Diabetes Type 1 Aunt Thyroid disorder Maternal Mother Thyroid disorder enlarged Grandmother Breast cancer Paternal Social History adopted: No household members: significant other current occupational status: employed 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 occupational exposures/hazards: No [...] 1-2 times per week duration: 60-90 minutes/day sid/congregational: None seatbelt use: always do you feel [...] dates. acce (more content not included)... Normal [facility] Urgent Care Visit Reporton 0 09-28-2024 Urgent Care Visit Report [facility] [address], [address] [place] [address] OFFICE VISIT Date of Service: 09/28/24 MR#: [id number] Acct: [id number] Name: LUCIANO KENDALL Rep #: [id number] : 2000 Provider: CLAUDETTE Farmer Age/Sex: 24/F Location: [facility] [email or web address] Status: Signed Intake Vital Signs 09/01/24 15:04 [...] on Sat night. PFSH Medical History Congenital vtxegg-hrrxonz-hwcbc reflux Gallstones UTI (urinary tract infection) Asthma Surgical History Hx of cholecystectomy Hx of tonsillectomy Family History Father Diabetes Type 1 Aunt Thyroid disorder Maternal Mother Thyroid disorder enlarged Grandmother Breast cancer Paternal Social History adopted: No household members: significant other current occupational status: employed 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 occupational exposures/hazards: No [...] 1-2 times per week duration: 60-90 minutes/day sid/congregational: None seatbelt use: always do you feel [...] normal i (more content not included)... Normal [facility] Laboratory - Chemistry and C hemistry - challengeOrdered By: Susan Coburn on 09-01-2024 Glucose Ql (U) Negative [facility] [facility] - UrinalysisOrder ed By: Susan Coburn on 09-01-2024 Protein Ql (U) Negative [facility] Call Or Contact Centre Team Leader Office Visit Reporton 09-01-2024 Call Or Contact Centre Team Leader Office Visit Report [facility]'[address], [address] [place] [address] OFFICE VISIT Date of Service: 09/01/24 MR#: [id number] Acct: [id number] Name: LUCIANO KENDALL Rep #: [id number] : 2000 Provider: Dr. Susan Lau DO Age/Sex: 24/F [place] [facility] [place]: Signed Intake Vital Signs 07/07/24 15:11 08/04/24 10:40 09/01/24 15:02 09/01/24 15:04 Height 5 ft 8 in 5 ft 8 in 5 ft 8 in 5 ft 8 in Weight: 246 lb 2 oz BMI 37.4 BP 125/81 H Intake Visit Reasons: 22 wk ob Termite Control Technician Required: No Is patient in pain?: No [...] : No PFSH PFSH Medical History Congenital ztengs-tmonscb-mejiv reflux Gallstones UTI (urinary tract infection) Asthma Surgical History Hx of cholecystectomy Hx of tonsillectomy Family History Father Diabetes Type 1 Aunt Thyroid disorder Maternal Mother Thyroid disorder enlarged Grandmother Breast cancer Paternal Social History adopted: No household members: significant other current occupational status: employed 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 occupational exposures/hazards: No [...] 1-2 times per week duration: 60-90 minutes/day sid/congregational: None seatbelt use: always do you feel [...] oz (+2 (more content not included)... Normal [facility] OB Anatomy w/ Transvaginalon 08-19-2024 OB Anatomy w/ Transvaginal [facility] Imaging Services [address] [place] [address] OB Anatomy w/ Transvaginal MR#: [id number] Acct: [id number] Name: LUCIANO KENDALL Rep #: [id number] : 2000 F 24 From: Kermit griffin MD PCP: Dr. Donald Waller MD Status: [facility] CL Study: OB Anatomy w/ Transvaginal Date of Exam: 08/19 Exam# [id number] Ordering Dr: Nita Mcintosh PROCEDURE: OB ANATOMY [...] 19 weeks and 4 days. Reading Location: [place] [address] CC: Dr. Donald Waller MD; Dr. Nita Mcintosh MD Felt Finishing Supervisor: Signed Normal [facility] Absolute lymphocyte countOrd ered By: Jennifer Willard on 08-04-2024 Lymphocytes Auto (Unsp spec) [#/Vol] 2.39 10*3/uL 0.83-4.51 [facility] Absolute neutrophil countOrd ered By: Jennifer Willard on 08-04-2024 Neutrophils (Bld) [#/Vol] 9.9 10*3/uL High 2.0-7.7 [facility] Anion gap in Serum or Plasma Ordered By: Jennifer Willard on 08-04-2024 Anion gap [Moles/Vol] 10 mmol/L 5-15 [facility] Automated lymphocyte count a s percentage of total leukocytesOrdered By: Jennifer Willard on 08-04-2024 Lymphocytes/100 WBC Auto (Unsp spec) 17.6 % Low 19-41 [facility] BUN/creatinine ratioOrdered By: Jennifer Willard on 08-04-2024 Urea nitrogen/Creatinine [Mass ratio] 12.9 mg/mg 10-20 [facility] Basophil percentageOrdered B y: Jennifer Willard on 08-04-2024 Basophils/100 WBC (Bld) 0.5 % 0-1 [facility] Bilirubin, totalOrdered By: Jennifer Willard on 08-04-2024 Bilirubin [Mass/Vol] 0.33 mg/dL 0.00-1.30 [facility] CBC W/Diff, Automatedon 04- Absolute Lymph 2.39 X10 3/uL Normal 0.83-4.51 [facility] Comment on above: Order Comment: ADD O N Performed By: #### M 100.2200, L100.0100 #### [facility] [address] [place], [address] Absolute Neut 9.9 X10 3/uL High 2.0-7.7 [facility] Comment on above: Order Comment: ADD O N Performed By: #### M 100.2200, L100.0100 #### [facility] [address] [place], [address] Basophils/100 WBC (Bld) 0.5 % Normal 0-1 [facility] Comment on above: Order Comment: ADD O N Performed By: #### M 100.0, L100.0100 #### [facility] [address] [place], [address] Eosinophils/100 WBC (Bld) 0.7 % Normal 0-5 [facility] Comment on above: Order Comment: ADD O N Performed By: #### M 100.2200, L100.0100 #### [facility] [address] [place], [address] Erythrocyte distribution width (RBC) [Ratio] 13.4 % Normal 11.6-14.6 [facility] Comment on above: Order Comment: ADD O N Performed By: #### M 100.2200, L100.0100 #### [facility] [address] [place], [address] Hematocrit (Bld) [Volume fraction] 39.8 % Normal 37-47 [facility] Comment on above: Order Comment: ADD O N Performed By: #### M 100.2200, L100.0100 #### [facility] [address] [place], [address] Hemoglobin (Bld) [Mass/Vol] 13.2 g/dL Normal 12.0-15.0 [facility] Comment on above: Order Comment: ADD O N Performed By: #### M 100.0, L100.0100 #### [facility] [address] [place], [address] IG% 2.300 High 0.0-0.9 [facility] Comment on above: Order Comment: ADD O N Result Comment: IG% - Immature Granulocytes (promyelocytes, myelocytes and metamyelocytes) > 1% indicates that a LEFT SHIFT is Present. Performed By: #### M 100.0, L100.0100 #### [facility] [address] [place], [address] Lymphocytes/100 WBC (Bld) 17.6 % Low 19-41 [facility] Comment on above: Order Comment: ADD O N Performed By: #### M 100.2199, L100.0100 #### [facility] [address] [place], [address] MCH (RBC) [Entitic mass] 29.9 pg Normal 27.0-32.0 [facility] Comment on above: Order Comment: ADD O N Performed By: #### M 100.0, L100.0100 #### [facility] [address] [place], [address] MCHC (RBC) [Mass/Vol] 33.2 g/dL Normal 32-36 [facility] Comment on above: Order Comment: ADD O N Performed By: #### M 100.2200, L100.0100 #### [facility] [address] [place], [address] MCV (RBC) [Entitic vol] 90.0 fL Normal 81-99 [facility] Comment on above: Order Comment: ADD O N Performed By: #### M 100.0, L100.0100 #### [facility] [address] [place], [address] Monocytes/100 WBC (Bld) 5.8 % Normal 0-10 [facility] Comment on above: Order Comment: ADD O N Performed By: #### M 100.2199, L100.0100 #### [facility] [address] [place], [address] Neutrophils/100 WBC (Bld) 73.1 % High 47-70 [facility] Comment on above: Order Comment: ADD O N Performed By: #### M 100.2199, L100.0100 #### [facility] [address] [place], [address] Nucleated RBC (Bld) [#/Vol] 0 10*3/uL Normal 0-5 [facility] Comment on above: Order Comment: ADD O N Performed By: #### M , L100.0100 #### [facility] [address] [place], [address] Platelet mean volume (Bld) [Entitic vol] 11.6 fL Normal 6.2-12.0 [facility] Comment on above: Order Comment: ADD O N Performed By: #### M .2199, L100.0100 #### [facility] [address] [place], [address] Platelets (Bld) [#/Vol] 213 10*3/uL Normal 150-450 [facility] Comment on above: Order Comment: ADD O N Performed By: #### M 100.0, L100.0100 #### [facility] [address] [place], [address] RBC (Bld) [#/Vol] 4.42 10*6/uL Normal 4.2-5.4 [facility] Comment on above: Order Comment: ADD O N Performed By: #### M 100.2200, L100.0100 #### [facility] [address] [place], [address] RDW SD 43.9 fl Normal 35.1-43.9 [facility] Comment on above: Order Comment: ADD O N Performed By: #### M 100.2200, L100.0100 #### [facility] [address] [place], [address] WBC (Bld) [#/Vol] 13.6 10*3/uL High 4.4-11.0 [facility] Comment on above: Order Comment: ADD O N Performed By: #### M 100.2200, L100.0100 #### [facility] [address] [place], [address] Carbon dioxide, total [Moles /volume] in Central venous bloodOrdered By: Jennifer Willard on 08-04-2024 CO2 [Moles/Vol] 21.9 mmol/L 21.0-32.0 [facility] Chloride assayOrdered By: David Willard on 08-04-2024 Chloride [Moles/Vol] 104 mmol/L 98-108 [facility] Comprehensive Metabolic Prof ilon 08-04-2024 Albumin [Mass/Vol] 3.8 g/dL Normal 3.5-5.0 [facility] Comment on above: Performed By: #### L 500.4050, L501.0900 #### [facility] [address] [place], [address] Albumin/Globulin [Mass ratio] 1.2 {ratio} Normal 0.9-2.4 [facility] Comment on above: Performed By: #### L 500.4050, L501.0900 #### [facility] [address] [place], [address] ALK PHOS 52 U/L Normal 35-104 [facility] Comment on above: Performed By: #### L 500.4050, L501.0900 #### [facility] [address] [place], [address] ALT [Catalytic activity/Vol] 38 U/L High <=34 [facility] Comment on above: Performed By: #### L 500.4050, L501.0900 #### [facility] [address] [place], [address] AST [Catalytic activity/Vol] 22 U/L Normal <=31 [facility] Comment on above: Performed By: #### L 500.4050, L501.0900 #### [facility] [address] [place], [address] Bilirubin [Mass/Vol] 0.33 mg/dL Normal 0.00-1.30 [facility] Comment on above: Performed By: #### L 500.4050, L501.0900 #### [facility] [address] [place], [address] BUN/CRE 12.9 RATIO Normal 10-20 [facility] Comment on above: Performed By: #### L 500.4050, L501.0900 #### [facility] [address] [place], [address] Calcium [Mass/Vol] 9.3 mg/dL Normal 7.6-11.0 [facility] Comment on above: Performed By: #### L 500.4050, L501.0900 #### [facility] [address] [place], [address] Chloride [Moles/Vol] 104 mmol/L Normal 98-108 [facility] Comment on above: Performed By: #### L 500.4050, L501.0900 #### [facility] [address] [place], [address] CO2 [Moles/Vol] 21.9 mmol/L Normal 21.0-32.0 [facility] Comment on above: Performed By: #### L 500.4050, L501.0900 #### [facility] [address] [place], [address] Creatinine [Mass/Vol] 0.79 mg/dL Normal 0.70-1.20 [facility] Comment on above: Performed By: #### L 500.4050, L501.0900 #### [facility] [address] [place], [address] GAP 10 Normal 5-15 [facility] Comment on above: Performed By: #### L 500.4050, L501.0900 #### [facility] [address] [place], [address] GFR/1.73 sq M.predicted among non-blacks MDRD (S/P/Bld) [Vol rate/Area] 106 mL/min/{1.73_m2} Normal >60 [facility] Comment on above: Result Comment: mL/m in/1.73m2 CKD-EPI Creatinine Equation (2020) Performed By: #### L 500.4050, L501.0900 #### [facility] [address] [place], [address] Globulin (S) [Mass/Vol] 3.1 g/dL Normal 2.2-4.2 [facility] Comment on above: Performed By: #### L 500.4050, L501.0900 #### [facility] [address] [place], [address] Glucose [Mass/Vol] 91 mg/dL Normal 70-99 [facility] Comment on above: Performed By: #### L 500.4050, L501.0900 #### [facility] [address] [place], [address] Potassium [Moles/Vol] 4.1 mmol/L Normal 3.3-5.1 [facility] Comment on above: Performed By: #### L 500.4050, L501.0900 #### [facility] [address] [place], [address] Sodium [Moles/Vol] 136 mmol/L Normal 133-145 [facility] Comment on above: Performed By: #### L 500.4050, L501.0900 #### [facility] [address] [place], [address] T PROT 6.9 g/dL Normal 5.9-8.4 [facility] Comment on above: Performed By: #### L 500.4050, L501.0900 #### [facility] [address] [place], [address] Urea nitrogen [Mass/Vol] 10 mg/dL Normal 4-19 [facility] Comment on above: Performed By: #### L 500.4050, L501.0900 #### [facility] [address] [place], [address] Creatinine Unsp time (U) [Ma ss/Vol]Ordered By: Jennifer Willard on 08-04-2024 Creatinine (U) [Mass/Vol] 169.00 mg/dL 28.00-217.00 [facility] Eosinophil percentageOrdered By: Jennifer Willard on 08-04-2024 Eosinophils/100 WBC (Bld) 0.7 % 0-5 [facility] Erythrocyte distribution wid th (RBC) [Ratio]Ordered By: Jennifer Willard on 08-04-2024 Erythrocyte distribution width (RBC) [Entitic vol] 43.9 fL 35.1-43.9 [facility] Erythrocyte distribution wid th ratioOrdered By: Jennifer Willard on 08-04-2024 Erythrocyte distribution width (RBC) [Ratio] 13.4 % 11.6-14.6 [facility] Erythrocyte distribution wid th standard deviationOrdered By: Jennifer Willard on 08-04-2024 Erythrocyte distribution width (RBC) [Ratio] 43.9 fl 35.1-43.9 [facility] GFR/1.73 sq M.predicted keisha g non-blacks MDRD (S/P/Bld) [Vol rate/Area]Ordered By: Jennifer Willard on 08-04-2024 Estimated GFR (MDRD) Non-Af Amer 106 >60 [facility] Comment on above: mL/min/1.73m2 CKD-EP I Creatinine Equation (2020) Glomerular filtration rate ( GFR) estimation/1.73 sq m using serum, plasma, or whole bOrdered By: Jennifer Willard on 08-04-2024 GFR/1.73 sq M.predicted among non-blacks MDRD (S/P/Bld) [Vol rate/Area] 106 mL/min/{1.73_m2} >60 [facility] Comment on above: mL/min/1.73m2 CKD-EP I Creatinine Equation (2020) Hematocrit Auto (Bld) [Volum e fraction]Ordered By: Jennifer Wilalrd on 08-04-2024 Hematocrit (Bld) [Volume fraction] 39.8 % 37-47 [facility] Hemoglobin measurementOrdere d By: Jennifer Willard on 08-04-2024 Hemoglobin (Bld) [Mass/Vol] 13.2 g/dL 12.0-15.0 [facility] Immature granulocytes/100 WB C Auto (Bld)Ordered By: Jennifer Willard on 08-04-2024 Immature granulocytes/100 WBC (Bld) 2.300 % High 0.0-0.9 [facility] Comment on above: IG% - Immature Granu locytes (promyelocytes, myelocytes and metamyelocytes) > 1% indicates that a LEFT SHIFT is Present. Laboratory - Chemistry and C hemistry - challengeOrdered By: Jennifer Willard on 08-04-2024 AST [Catalytic activity/Vol] 22 U/L <32 [facility] Lymphocytes Auto (Unsp spec) [#/Vol]Ordered By: Jennifer Willard on 08-04-2024 Lymphocytes (Bld) [#/Vol] 2.39 10*3/uL 0.83-4.51 [facility] Lymphocytes/100 WBC Auto (Un sp spec)Ordered By: Jennifer Willard on 08-04-2024 Lymphocytes/100 WBC (Bld) 17.6 % Low 19-41 [facility] MCV (mean corpuscular volume ) determinationOrdered By: Jennifer Willard on 08-04-2024 MCV (RBC) [Entitic vol] 90.0 fL 81-99 [facility] Mean corpuscular hemoglobin (MCH) determinationOrdered By: Jennifer Willard on 08-04-2024 MCH (RBC) [Entitic mass] 29.9 pg 27.0-32.0 [facility] Mean corpuscular hemoglobin concentration (MCHC) determinationOrdered By: Jennifer Willard on 08-04-2024 MCHC (RBC) [Mass/Vol] 33.2 g/dL 32-36 [facility] Mean platelet volume determi nationOrdered By: Jennifer Willard on 08-04-2024 Platelet mean volume (Bld) [Entitic vol] 11.6 fL 6.2-12.0 [facility] Monocyte percentageOrdered B y: Jennifer Willard on 08-04-2024 Monocytes/100 WBC (Bld) 5.8 % 0-10 [facility] Neutrophil percentageOrdered By: Jennifer Willard on 08-04-2024 Neutrophils/100 WBC (Bld) 73.1 % High 47-70 [facility] Nucleated red blood cell per centageOrdered By: Jennifer Willard on 08-04-2024 Nucleated RBC/100 WBC (Bld) [Ratio] 0 % 0-5 [facility] Call Or Contact Centre Team Leader Office Visit Reporton 08-04-2024 Call Or Contact Centre Team Leader Office Visit Report [facility] [address], [address] [place] [address] OFFICE VISIT Date of Service: 08/04/24 MR#: [id number] Acct: [id number] Name: LUCIANO KENDALL Rep #: [id number] : 2000 Provider: ANY dykes Age/Sex: 24/F [place] [facility] [place]: Signed Intake Vital Signs 07/07/24 15:11 08/04/24 10:40 Height 5 ft 8 in 5 ft 8 in Weight: 235 lb 6 oz BMI 35.8 BP 124/82 H Intake Visit Reasons: 18 wk ob 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 Is patient in pain?: No [...] Zika: Zika virus screening: Negative : No [facility] Medical History (Updated 08/04/24 @ 11:10 by Jennifer Willard 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, 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) Congenital xjvlfa-twahlyr-tpjoc reflux Gallstones UTI (urinary tract infection) Asthma Surgical History Hx of cholecystectomy Hx of tonsillectomy Family History Father Diabetes Type 1 Aunt Thyroid disorder Maternal Mother Thyroid disorder enlarged Grandmother Breast cancer Paternal Social History adopted: No household members: significant other current occupational status: employed 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 occupational exposures/hazards: No [...] 1-2 times per week duration: 60-90 minutes/day sid/congregational: None seatbelt use: always do you feel [...] 131/84 Negativ (more content not included)... Normal [facility] Platelet countOrdered By: David Willard on 08-04-2024 Platelets (Bld) [#/Vol] 213 10*3/uL 150-450 [facility] Potassium (Unsp spec) [Mass/ Vol]Ordered By: Jennifer Willard on 08-04-2024 Potassium [Moles/Vol] 4.1 mmol/L 3.3-5.1 [facility] Potassium measurement (mass/ volume)Ordered By: Jennifer Willard on 08-04-2024 Potassium (Unsp spec) [Mass/Vol] 4.1 mmol/L 3.3-5.1 [facility] Protein+Creatinine Ratio,Uri neon 08-04-2024 PROT:CRE RATIO 68 mg/g CRE Normal 0-200 [facility] Comment on above: Performed By: #### L 500.4050, L501.0900 #### [facility] [address] [place], [address] Protein (U) [Mass/Vol] 11.5 mg/dL Normal 0.0-12.0 [facility] Comment on above: Performed By: #### L 500.4050, L501.0900 #### [facility] [address] [place], [address] UR CREAT 169.00 mg/dL Normal 28.00-217.00 [facility] Comment on above: Performed By: #### L 500.4050, L501.0900 #### [facility] [address] [place], [address] Protein/Creatinine (U) [Mass ratio]Ordered By: Jennifer Willard on 08-04-2024 Urine Protein/Creatinine Ratio 68 mg/g CRE 0-200 [facility] RBC Auto (Bld) [#/Vol]Ordere d By: Jennifer Willard on 08-04-2024 RBC (Bld) [#/Vol] 4.42 10*6/uL 4.2-5.4 [facility] Random urine creatinine mika urement (mass/volume)Ordered By: eJnnifer Willard on 08-04-2024 Creatinine Unsp time (U) [Mass/Vol] 169.00 mg/dL 28.00-217.00 [facility] Serum creatinine measurement (mass/volume)Ordered By: Jennifer Willard on 08-04-2024 Creatinine [Mass/Vol] 0.79 mg/dL 0.70-1.20 [facility] Serum globulin measurementOr dered By: Jennifer Willard on 08-04-2024 Globulin (S) [Mass/Vol] 3.1 g/dL 2.2-4.2 [facility] Serum glucose measurement (m ass/volume)Ordered By: Jennifer Willard on 08-04-2024 Glucose [Mass/Vol] 91 mg/dL 70-99 [facility] Serum or plasma alanine terrazas otransferase (ALT) measurementOrdered By: Jennifer Willard on 08-04-2024 ALT [Catalytic activity/Vol] 38 U/L High <35 [facility] Serum or plasma albumin mika urement (mass/volume)Ordered By: Jennifer Willard on 08-04-2024 Albumin [Mass/Vol] 3.8 g/dL 3.5-5.0 [facility] Serum or plasma albumin/glob ulin mass ratioOrdered By: Jennifer Willard on 08-04-2024 Albumin/Globulin [Mass ratio] 1.2 {ratio} 0.9-2.4 [facility] Serum or plasma alkaline lebron sphatase measurementOrdered By: Jennifer Willard on 08-04-2024 ALP [Catalytic activity/Vol] 52 U/L 35-104 [facility] Serum or plasma calcium mika urement (mass/volume)Ordered By: Jennifer Willard on 08-04-2024 Calcium [Mass/Vol] 9.3 mg/dL 7.6-11.0 [facility] Serum or plasma urea nitroge n measurement (mass/volume)Ordered By: Jennifer Willard on 08-04-2024 Urea nitrogen [Mass/Vol] 10 mg/dL 4-19 [facility] Sodium levelOrdered By: Constantine Willard on 08-04-2024 Sodium [Moles/Vol] 136 mmol/L 133-145 [facility] Total proteinOrdered By: Merlin Willard on 08-04-2024 Protein [Mass/Vol] 6.9 g/dL 5.9-8.4 [facility] Urine protein measurement (m ass/volume)Ordered By: Jennifer Willard on 08-04-2024 Protein (U) [Mass/Vol] 11.5 mg/dL 0.0-12.0 [facility] Urine protein/creatinine mas s ratioOrdered By: Jennifer Willard on 08-04-2024 Protein/Creatinine (U) [Mass ratio] 68 mg/g CRE 0-200 [facility] White blood cell (WBC) count Ordered By: Jennifer Willard on 08-04-2024 WBC (Bld) [#/Vol] 13.6 10*3/uL High 4.4-11.0 [facility] [facility] Absolute lymphocyte countOrd ered By: Susie Solomon on 07-07-2024 Lymphocytes Auto (Unsp spec) [#/Vol] 2.97 10*3/uL 0.83-4.51 [facility] Absolute neutrophil countOrd ered By: Susie Solomon on 07-07-2024 Neutrophils (Bld) [#/Vol] 8.9 10*3/uL High 2.0-7.7 [facility] Automated lymphocyte count a s percentage of total leukocytesOrdered By: Susie Solomon on 07-07-2024 Lymphocytes/100 WBC Auto (Unsp spec) 22.8 % 19-41 [facility] Basophil percentageOrdered B y: Susie Solomon on 07-07-2024 Basophils/100 WBC (Bld) 0.3 % 0-1 [facility] CBC W/Diff, Automatedon 06-27 Absolute Lymph 2.97 X10 3/uL Normal 0.83-4.51 [facility] Comment on above: Performed By: #### M 100.2200, L100.0100 #### [facility] Laboratory [address] [place], [address] Absolute Neut 8.9 X10 3/uL High 2.0-7.7 [facility] Comment on above: Performed By: #### M 100.2200, L100.0100 #### [facility] [address] [place], [address] Basophils/100 WBC (Bld) 0.3 % Normal 0-1 [facility] Comment on above: Performed By: #### M 100.2200, L100.0100 #### [facility] [address] [place], [address] Eosinophils/100 WBC (Bld) 1.0 % Normal 0-5 [facility] Comment on above: Performed By: #### M 100.2200, L100.0100 #### [facility] [address] [place], [address] Erythrocyte distribution width (RBC) [Ratio] 13.0 % Normal 11.6-14.6 [facility] Comment on above: Performed By: #### M 100.2200, L100.0100 #### [facility] [address] [place], [address] Hematocrit (Bld) [Volume fraction] 37.1 % Normal 37-47 [facility] Comment on above: Performed By: #### M 100.2200, L100.0100 #### [facility] [address] [place], [address] Hemoglobin (Bld) [Mass/Vol] 12.6 g/dL Normal 12.0-15.0 [facility] Comment on above: Performed By: #### M 100.2200, L100.0100 #### [facility] [address] [place], [address] IG% 1.400 High 0.0-0.9 [facility] Comment on above: Result Comment: IG% - Immature Granulocytes (promyelocytes, myelocytes and metamyelocytes) > 1% indicates that a LEFT SHIFT is Present. Performed By: #### M 100.2200, L100.0100 #### [facility] [address] [place], [address] Lymphocytes/100 WBC (Bld) 22.8 % Normal 19-41 [facility] Comment on above: Performed By: #### M 100.2200, L100.0100 #### [facility] [address] [place], [address] MCH (RBC) [Entitic mass] 29.8 pg Normal 27.0-32.0 [facility] Comment on above: Performed By: #### M 100.2200, L100.0100 #### [facility] [address] [place], [address] MCHC (RBC) [Mass/Vol] 34.0 g/dL Normal 32-36 [facility] Comment on above: Performed By: #### M 100.2200, L100.0100 #### [facility] [address] [place], [address] MCV (RBC) [Entitic vol] 87.7 fL Normal 81-99 [facility] Comment on above: Performed By: #### M 100.2200, L100.0100 #### [facility] [address] [place], [address] Monocytes/100 WBC (Bld) 6.1 % Normal 0-10 [facility] Comment on above: Performed By: #### M 100.2199, L100.0100 #### [facility] [address] [place], [address] Neutrophils/100 WBC (Bld) 68.4 % Normal 47-70 [facility] Comment on above: Performed By: #### M 100.2199, L100.0100 #### [facility] [address] [place], [address] Nucleated RBC (Bld) [#/Vol] 0 10*3/uL Normal 0-5 [facility] Comment on above: Performed By: #### M 100.2199, L100.0100 #### [facility] [address] [place], [address] Platelet mean volume (Bld) [Entitic vol] 11.3 fL Normal 6.2-12.0 [facility] Comment on above: Performed By: #### M 100.2200, L100.0100 #### [facility] [address] [place], [address] Platelets (Bld) [#/Vol] 225 10*3/uL Normal 150-450 [facility] Comment on above: Performed By: #### M 100.2200, L100.0100 #### [facility] [address] [place], [address] RBC (Bld) [#/Vol] 4.23 10*6/uL Normal 4.2-5.4 [facility] Comment on above: Performed By: #### M 100.2200, L100.0100 #### [facility] [address] [place], [address] RDW SD 41.6 fl Normal 35.1-43.9 [facility] Comment on above: Performed By: #### M 100.2200, L100.0100 #### [facility] [address] [place], [address] WBC (Bld) [#/Vol] 13.0 10*3/uL High 4.4-11.0 [facility] Comment on above: Performed By: #### M 100.2200, L100.0100 #### [facility] [address] [place], [address] Eosinophil percentageOrdered By: Susie Solomon on 07-07-2024 Eosinophils/100 WBC (Bld) 1.0 % 0-5 [facility] Erythrocyte distribution wid th ratioOrdered By: Susie Solomon on 07-07-2024 Erythrocyte distribution width (RBC) [Ratio] 13.0 % 11.6-14.6 [facility] Erythrocyte distribution wid th standard deviationOrdered By: Susie Solomon on 07-07-2024 Erythrocyte distribution width (RBC) [Entitic vol] 41.6 fL 35.1-43.9 [facility] Erythrocyte distribution width (RBC) [Ratio] 41.6 fl 35.1-43.9 [facility] HBV surface Ag Ql (S)Ordered By: Susie Solomon on 07-07-2024 Hepatitis B Surface Antigen Non-Reactive Nonreactive [facility] Comment on above: Reactive: Presumptiv e evidence of HBV. Repeatedly reactive samples must be confirmed using a neutralization test ([employer] HBsAg Confirmatory Test)Non-Reactive: HBsAg not detected; does not exclude the possibility of exposure to HBV Hematocrit Auto (Bld) [Volum e fraction]Ordered By: Susie Solomon on 07-07-2024 Hematocrit (Bld) [Volume fraction] 37.1 % 37-47 [facility] Hemoglobin A1con 07-07-2024 HbA1c (Bld) [Mass fraction] 5.1 % Low <=5.6 [facility] Comment on above: Performed By: #### M 100.2200, L100.0100 #### [facility] [address] [place], [address] Hemoglobin A1c percentageOrd ered By: Susie Solomon on 07-07-2024 HbA1c (Bld) [Mass fraction] 5.1 % Low >5.7 [facility] Hemoglobin measurementOrdere d By: Susie Solomon on 07-07-2024 Hemoglobin (Bld) [Mass/Vol] 12.6 g/dL 12.0-15.0 [facility] Hepatitis C antibodyOrdered By: Susie Solomon on 07-07-2024 Hepatitis C Antibody Non-Reactive Nonreactive [facility] Comment on above: Reactive: Presumptiv e evidence of antibodies to HCV. Follow CDC recommendations for supplemental testing.Non-Reactive: Antibodies to HCV were not detected; does not exclude the possibility of exposure to HCVReactive Results are presumptive evidence of antibodies to HCV. Follow CDC recommendations for supplemental testing.Order confirmation testing: HCV Quant by PCR testing - HCVPCR #[id number] Non Reactive: < 0.8 Equivocal: >/= 0.8 to < 1.0 Reactive: >/= 1.0The CDC requires that a reactive/equivocal HCV antibody result be sent out for confirmation. HCV Quant by PCR testing. Immature granulocytes/100 WB C Auto (Bld)Ordered By: Susie Solomon on 07-07-2024 Immature granulocytes/100 WBC (Bld) 1.400 % High 0.0-0.9 [facility] Comment on above: IG% - Immature Granu locytes (promyelocytes, myelocytes and metamyelocytes) > 1% indicates that a LEFT SHIFT is Present. L3890.6006on 07-07-2024 HIV Non-Reactive Normal Nonreactive [facility] Comment on above: Result Comment: Non- Reactive Reactive Repeatedly reactive samples must be confirmed according to CDC recommended confirmatory algorithms. The subresults for either HIVAG or AHIV can be used as an aid in the selection of the confirmation algorithm for reactive samples. Send out specimens with Reactive results to [facility] for confirmation. Order the HIV antibody detection and differentiation: lc#[id number] Performed By: #### M 100.2200, L100.0100 #### [facility] [address] [facility] [address] L3890.6102on 07-07-2024 HEP B Surf Ag Non-Reactive Normal Nonreactive [facility] Comment on above: Result Comment: Reac tive: Presumptive evidence of HBV. Repeatedly reactive samples must be confirmed using a neutralization test ([employer] HBsAg Confirmatory Test) Non-Reactive: HBsAg not detected; does not exclude the possibility of exposure to HBV Performed By: #### M 100.2200, L100.0100 #### [facility] [address] [facility] [address] L3890.6301on 07-07-2024 Hepatitis C Ab Non-Reactive Normal Nonreactive [facility] Comment on above: Result Comment: Reac tive: Presumptive evidence of antibodies to HCV. Follow CDC recommendations for supplemental testing. Non-Reactive: Antibodies to HCV were not detected; does not exclude the possibility of exposure to HCV Reactive Results are presumptive evidence of antibodies to HCV. Follow CDC recommendations for supplemental testing. Order confirmation testing: HCV Quant by PCR testing - HCVPCR #[id number] Non Reactive: < 0.8 Equivocal: >/= 0.8 to < 1.0 Reactive: >/= 1.0 The CDC requires that a reactive/equivocal HCV antibody result be sent out for confirmation. HCV Quant by PCR testing. Performed By: #### M 100.2200, L100.0100 #### [facility] [address] [facility] [address] [facility] [address] L509.4006on 07-07-2024 Rubella IgG REAC Normal Nonreactive [facility] Comment on above: Result Comment: Anti body Result: Interpretation Non-Reactive: Non-Immune Reactive: Immune The following results were obtained with the [employer]ys Rubella IgG assay. Results from assays of other manufacturers cannot be used interchangeably. Performed By: #### M 100.2200, L100.0100 #### [facility] [address] [facility] [address] L509.8002on 07-07-2024 Syphilis Abs Non-Reactive Normal Nonreactive [facility] Comment on above: Performed By: #### M 100.2200, L100.0100 #### [facility] [address] [place], [address] Laboratory - Chemistry and C hemistry - challengeOrdered By: Nita Mcintosh on 07-07-2024 Glucose Ql (U) Negative [facility] Laboratory - Microbiology an d Antimicrobial susceptibilityOrdered By: Susie Solomon on 07-07-2024 HBV surface Ag Ql (S) Non-Reactive Nonreactive [facility] Comment on above: Reactive: Presumptiv e evidence of HBV. Repeatedly reactive samples must be confirmed using a neutralization test ([employer] HBsAg Confirmatory Test)Non-Reactive: HBsAg not detected; does not exclude the possibility of exposure to HBV Laboratory - UrinalysisOrder ed By: Nita Mcintosh on 07-07-2024 Protein Ql (U) Negative [facility] Lymphocytes Auto (Unsp spec) [#/Vol]Ordered By: Susie Solomon on 07-07-2024 Lymphocytes (Bld) [#/Vol] 2.97 10*3/uL 0.83-4.51 [facility] Lymphocytes/100 WBC Auto (Un sp spec)Ordered By: Susie Solomon on 07-07-2024 Lymphocytes/100 WBC (Bld) 22.8 % 19-41 [facility] MCV (mean corpuscular volume ) determinationOrdered By: Susie Solomon on 07-07-2024 MCV (RBC) [Entitic vol] 87.7 fL 81-99 [facility] Mean corpuscular hemoglobin (MCH) determinationOrdered By: Susie Solomon on 07-07-2024 MCH (RBC) [Entitic mass] 29.8 pg 27.0-32.0 [facility] Mean corpuscular hemoglobin concentration (MCHC) determinationOrdered By: Susie Solomon on 07-07-2024 MCHC (RBC) [Mass/Vol] 34.0 g/dL 32-36 [facility] Mean platelet volume determi nationOrdered By: Susie Solomon on 07-07-2024 Platelet mean volume (Bld) [Entitic vol] 11.3 fL 6.2-12.0 [facility] Miscellaneous procedureOrder ed By: Susie Solomon on 07-07-2024 Miscellaneous Test Comment SEE SCANNED REPORT [facility] Monocyte percentageOrdered B y: Susie Solomon on 07-07-2024 Monocytes/100 WBC (Bld) 6.1 % 0-10 [facility] NATERAon 07-07-2024 NATURA SEE SCANNED REPORT Normal [facility] Comment on above: Order Comment: Comme nts: NIPT with Gender Performed By: #### M 100.2200, L100.0100 #### [facility] [address] [place], [place], [address] Neutrophil percentageOrdered By: Susie Solomon on 07-07-2024 Neutrophils/100 WBC (Bld) 68.4 % 47-70 [facility] No Panel InformationOrdered By: Susie Solomon on 07-07-2024 HIV (1&2) Antibody Non-Reactive Nonreactive [facility] Comment on above: Non-ReactiveReactive Repeatedly reactive samples must be confirmed according to CDC recommended confirmatory algorithms. The subresults for either HIVAG or AHIV can be used as an aid in the selection of the confirmation algorithm for reactive samples.Send out specimens with Reactive results to [facility] for confirmation.Order the HIV antibody detection and differentiation: #[id number] Nucleated red blood cell per centageOrdered By: Susie Solomon on 07-07-2024 Nucleated RBC/100 WBC (Bld) [Ratio] 0 % 0-5 [facility] Call Or Contact Centre Team Leader Office Visit Reporton 07-07-2024 Call Or Contact Centre Team Leader Office Visit Report [facility] [address], [address] [place] [address] OFFICE VISIT Date of Service: 07/07/24 MR#: [id number] Acct: [id number] Name: LUCIANO KENDALL Rep #: [id number] 02 : 2000 Provider: Dr. 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 [employer] Technician Required: No Is patient in pain?: No [...] : No PFSH PFSH Medical History Congenital zrigbz-pohzyue-vhwrx reflux Gallstones UTI (urinary tract infection) Asthma Surgical History Hx of cholecystectomy Hx of tonsillectomy Family History Father Diabetes Type 1 Aunt Thyroid disorder Maternal Mother Thyroid disorder enlarged Grandmother Breast cancer Paternal Social History adopted: No household members: significant other current occupational status: employed 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 occupational exposures/hazards: No [...] 1-2 times per week duration: 60-90 minutes/day sid/congregational: None seatbelt use: always do you feel [...] -???-???-???-???-???- ???-???-?? (more content not included)... Normal [facility] Platelet countOrdered By: Diego Solomon on 07-07-2024 Platelets (Bld) [#/Vol] 225 10*3/uL 150-450 [facility] RBC Auto (Bld) [#/Vol]Ordere d By: Susie Solomon on 07-07-2024 RBC (Bld) [#/Vol] 4.23 10*6/uL 4.2-5.4 [facility] Rubella immune status determ ination by IgG antibody assayOrdered By: Susie Solomon on 07-07-2024 Rubella IgG Antibody REAC Nonreactive [facility] Comment on above: Antibody Result: Int erpretationNon-Reactive: Non-ImmuneReactive: ImmuneThe following results were obtained with the [employer] Rubella IgG assay. Results from assays of other manufacturers cannot be used interchangeably. T. pallidum abOrdered By: Diego Solomon on 07-07-2024 Syphilis Total Antibody Non-Reactive Nonreactiv e [facility] Type AND Screenon 07-07-2024 ABO and Rh group Nom (Bld) Blood group O Rh(D) positive Normal [facility] Comment on above: Order Comment: PN Performed By: #### M 100.2200, L100.0100 #### [facility] [address] [place], [address] White blood cell (WBC) count Ordered By: Susie Solomon on 07-07-2024 WBC (Bld) [#/Vol] 13.0 10*3/uL High 4.4-11.0 [facility] Chlamydia/GC NILDA aptimaon CHLAMY,NUC ACID Negative Normal Negative [facility] Comment on above: Performed By: #### M 100.2200, L100.0100 #### [facility] [address] [place], [address] GC BY NUC ACID Negative Normal Negative [facility] Comment on above: Result Comment: Perf ormed at: =G - [facility] [id number] Operator Lights: Lisa Morris MD, Phone: [phone] Performed By: #### M 100.2200, L100.0100 #### [facility] [address] [place], [address] Urine Cultureon 06-07-2024 URC Below infection level. Mixed Gram Positive Organisms [place] Count <1000 MIXC Mixed contaminants. Submit a new specimen if indicated. Normal [facility] Comment on above: Performed By: #### M 100.2200, L100.0100 #### [facility] [address] [place], [address] C. trachomatis rRNA NILDA+prob e Ql (Unsp spec)Ordered By: Susie Solomon on 06-04-2024 Chlamydia DNA (NILDA) Negative Negative [facility] Chlamydia trachomatis rRNA d etection by probe and target amplification methodOrdered By: Susie Solomon on 06-04-2024 C. trachomatis rRNA NILDA+probe Ql (Unsp spec) Negative Negative [facility] Neisseria gonorrhoeae nuclei c acid detection by amplified probe techniqueOrdered By: Susie Solomon on 06-04-2024 N. gonorrhoeae DNA NILDA+probe Ql (Unsp spec) Negative Negative [facility] Comment on above: Performed at: =[address] [place], [place] [id number] Director: Lisa Morris MD, Phone: [phone] Call Or Contact Centre Team Leader Office Visit Reporton 06-04-2024 Call Or Contact Centre Team Leader Office Visit Report [facility] [address], [address] [place] [address] OFFICE VISIT Date of Service: 06/04/24 MR#: [id number] Acct: [id number] Name: LUCIANO KENDALL Rep #: [id number] 17 : 2000 Provider: ALEXANDRA Coughlin ams Age/Sex: 23/F [place] [facility] [place] Status: Signed Intake Vital Signs 04/15/24 11:31 [...] : Yes PFSH PFSH Medical History Congenital rdapof-drinnvd-rmegh reflux Gallstones UTI (urinary tract infection) Asthma Surgical History Hx of cholecystectomy Hx of tonsillectomy Family History Father Diabetes Type 1 Aunt Thyroid disorder Maternal Mother Thyroid disorder enlarged Grandmother Breast cancer Paternal Social History adopted: No household members: significant other current occupational status: employed 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 Normal [facility] Urine cultureOrdered By: Singh Solomon on 06-04-2024 Bacteria identified Cx Nom (U) Positive Abnormal [facility] PAP I-G w/rfx hrHPV-Aptimaon 04-24-2024 ADEQ Comment Normal . [facility] Comment on above: Order Comment: Speci men Comment: [id number] Specimen Comment: Source.............Cervix;Endocervix Specimen Comment: No. of containers..01 ThinPrep Vial Result Comment: Sati sfactory for evaluation. No endocervical component is identified. Performed By: #### L 7400.0353 #### [facility] [address] [place], [address] COMM . Normal . [facility] Comment on above: Order Comment: Speci men Comment: [id number] Specimen Comment: Source.............Cervix;Endocervix Specimen Comment: No. of containers..01 ThinPrep Vial Performed By: #### L 7400.0353 #### [facility] [address] [place], [place], [address] COMMENT Comment Normal . [facility] Comment on above: Order Comment: Speci men Comment: [id number] Specimen Comment: Source.............Cervix;Endocervix Specimen Comment: No. of containers..01 ThinPrep Vial Result Comment: This liquid based ThinPrep(R) pap test was screened with the use of an image guided system. Performed By: #### L 7400.0353 #### [facility] [address] [place], [place], [address] DIAG Comment Normal . [facility] Comment on above: Order Comment: Speci men Comment: [id number] Specimen Comment: Source.............Cervix;Endocervix Specimen Comment: No. of containers..01 ThinPrep Vial Result Comment: NEGA TIVE FOR INTRAEPITHELIAL LESION OR MALIGNANCY. Performed By: #### L 7400.0353 #### [facility] [address] [place], [address] HPV RFLX Comment Normal . [facility] Comment on above: Order Comment: Speci men Comment: [id number] Specimen Comment: Source.............Cervix;Endocervix Specimen Comment: No. of containers..01 ThinPrep Vial Result Comment: The HPV DNA reflex criteria were not met with this specimen result therefore, no HPV testing was performed. Performed at: [address] [id number] Operator Lights: Lisa Morris MD, Phone: [phone] Performed By: #### L 7400.0353 #### [facility] [address] [place], [address] PAPSMR Comment Normal . [facility] Comment on above: Order Comment: Speci men Comment: [id number] Specimen Comment: Source.............Cervix;Endocervix Specimen Comment: No. of [...] occur. Performed By: #### L 7400.0353 #### [facility] [address] [place], [address] PERFORM Comment Normal . [facility] Comment on above: Order Comment: Speci men Comment: [id number] Specimen Comment: Source.............Cervix;Endocervix Specimen Comment: No. of containers..01 ThinPrep Vial Result Comment: Karla Archer, Beater Operator (ASCP) Performed By: #### L 7400.0353 #### [facility] [address] [place], [address] Grain Miller Helper Cyto stain Nom (C vx/Vag) [ID]Ordered By: Magda Franklin on 04-15-2024 Pap Smear Performed By Comment . [facility] Comment on above: Karla Archer, Cytote chnologist (ASCP) Cytology report Cyto stain D oc (Cvx/Vag)Ordered By: Magda Franklin on 04-15-2024 Thin Prep Pap Smear Comment . [facility] Comment on above: The Pap smear is a s creening test designed to aid in thedetection of premalignant and malignant conditions of theuterine cervix. It is not a diagnostic procedure andshould not be used as the sole means of detecting cervicalcancer. Both false-positive and false-negative reports dooccur. Image-guided ThinPrep PapOrd ered By: Magda Franklin on 04-15-2024 Pap Smear Note Comment . [facility] Comment on above: This liquid based Th inPrep(R) pap test was screened withthe use of an image guided system. Image-guided liquid-based Pa pOrdered By: Magda Franklin on 04-15-2024 Pap Smear Diagnosis Comment . [facility] Comment on above: NEGATIVE FOR INTRAEP ITHELIAL LESION OR MALIGNANCY. Image-guided liquid-based ce rvical Pap w high-risk HPV+reflex to HPV 16+18Ordered By: Magda Franklin on 04-15-2024 Human Papillomavirus Screen Comment . [facility] Comment on above: The HPV DNA reflex c nava were not met with this specimenresult therefore, no HPV testing was performed.Performed at: - [facility] [id number] Director: Lisa Morris MD, Phone: [phone] [facility]adderon 024 Kidney and Bladder [facility] Imaging Services [address] [place], [place] [id number] Kidney and Bladder MR#: [id number] Acct: [id number] Name: LUCIANO KENDALL Rep #: [id number] : 2000 F 23 From: Jemal Grimes DO PCP: Dr. Donald Waller MD Status: REG CLI Study: Kidney and Bladder Date of Exam: 04/15/24 Exam# [id number] Ordering Dr: Donald Waller MD [id number] INDICATION: UTI EXAMINATION: Ultrasound US Kidney(s) complete [...] 23:21 EST Reading Location ID and State: [facility] / [place] Tel [phone], Service support , CC: Dr. Donald Waller MD Felt Finishing Supervisor: Signed Normal [facility] Call Or Contact Centre Team Leader Office Visit Reporton 04-15-2024 Call Or Contact Centre Team Leader Office Visit Report [facility] [address], [address] [place] [address] OFFICE VISIT Date of Service: 04/15/24 MR#: [id number] Acct: [id number] Name: LUCIANO KENDALL Rep #: [id number] : 2000 Provider: ANY Bhakta Age/Sex: 23/F [place] [facility] [place]: Signed Intake Vital Signs 04/15/24 11:31 Height 5 ft 8 in Weight: 216 lb BMI 32.8 BP 128/71 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 Normal [facility] Service comment (Unsp spec) [Interp]Ordered By: Magda Franklin on 04-15-2024 Pap Smear Comment (3) . . [facility] Basic Metabolic Profile (BMP )on 04-10-2024 BUN/CRE 9.6 RATIO Low 10-20 [facility] Comment on above: Order Comment: Order Date: 04/06/24Order Info: 666-04 - BMP Performed By: #### M 100.2200, L100.0100 #### [facility] [address] [place], [address] CA,Total 9.5 mg/dL Normal 8.5-10.1 [facility] Comment on above: Order Comment: Order Date: 04/06/24Order Info: 666-04 - BMP Performed By: #### M 100.2200, L100.0100 #### [facility] [address] [place], [address] Chloride [Moles/Vol] 108 mmol/L High 98-107 [facility] Comment on above: Order Comment: Order Date: 04/06/24Order Info: 666-04 - BMP Performed By: #### M 100.2200, L100.0100 #### [facility] [address] [place], [address] CO2 [Moles/Vol] 25.0 mmol/L Normal 21.0-32.0 [facility] Comment on above: Order Comment: Order Date: 04/06/24Order Info: 666-04 - BMP Performed By: #### M 100.2200, L100.0100 #### [facility] [address] [place], [address] Creatinine [Mass/Vol] 1.14 mg/dL High 0.55-1.02 [facility] Comment on above: Order Comment: Order Date: 04/06/24Order Info: 666-04 - BMP Result Comment: The validity of the calculated GFR GFRAA in patients over 70 years has not been determined. Clinical correlation is essential. Performed By: #### M 100.2200, L100.0100 #### [facility] [address] [place], [address] EST GFR - AA 75 mL/min Normal >60 [facility] Comment on above: Order Comment: Order Date: 04/06/24Order Info: 06 - BMP Result Comment: Afri can Senegalese GFR Calc Performed By: #### M 100.2200, L100.0100 #### [facility] [address] [place], [address] GAP 6 Normal 5-15 [facility] Comment on above: Order Comment: Order Date: 04/06/24Order Info: 666-04 - BMP Performed By: #### M 100.2200, L100.0100 #### [facility] [address] [place], [address] GFR/1.73 sq M.predicted among non-blacks MDRD (S/P/Bld) [Vol rate/Area] 62 mL/min/{1.73_m2} Normal >60 [facility] Comment on above: Order Comment: Order Date: 04/06/24Order Info: 666-04 - BMP Result Comment: Non- GFR Calc Performed By: #### M 100.2200, L100.0100 #### [facility] [address] [place], [address] Glucose [Mass/Vol] 93 mg/dL Normal 74-106 [facility] Comment on above: Order Comment: Order Date: 04/06/24Order Info: 666-04 - BMP Performed By: #### M 100.2200, L100.0100 #### [facility] [address] [place], [address] Potassium [Moles/Vol] 4.2 mmol/L Normal 3.5-5.1 [facility] Comment on above: Order Comment: Order Date: 04/06/24Order Info: 666-04 - BMP Performed By: #### M 100.2200, L100.0100 #### [facility] [address] [place], [address] Sodium [Moles/Vol] 139 mmol/L Normal 136-145 [facility] Comment on above: Order Comment: Order Date: 04/06/24Order Info: 0667-1 - BMP Performed By: #### M 100.2200, L100.0100 #### [facility] [address] [place], [address] Urea nitrogen [Mass/Vol] 11 mg/dL Normal 7-18 [facility] Comment on above: Order Comment: Order Date: 04/06/24Order Info: 0667-1 - BMP Performed By: #### M 100.2200, L100.0100 #### [facility] [address] [place], [address] Blood urea nitrogen (BUN)/cr eatinine ratioOrdered By: Donald Waller on 04-10-2024 Urea nitrogen/Creatinine [Mass ratio] 9.6 mg/mg Low 10-20 [facility] Carbon dioxide measurementOr dered By: Donald Waller on 04-10-2024 CO2 [Moles/Vol] 25.0 mmol/L 21.0-32.0 [facility] Chloride measurementOrdered By: Donald Waller on 04-10-2024 Chloride [Moles/Vol] 108 mmol/L High 98-107 [facility] Estimated glomerular filtrat ion rate (GFR) AmericanOrdered By: Donald Waller on 04-10-2024 Estimated GFR (MDRD) Amer 75 mL/min >60 [facility] Comment on above: GFR Calc Glomerular filtration rate ( GFR) estimationOrdered By: Donald Waller on 04-10-2024 Estimated GFR (MDRD) Non-Af Amer 62 mL/min >60 [facility] Comment on above: Non- GFR Calc Glucose measurementOrdered B y: Donald Waller on 04-10-2024 Glucose [Mass/Vol] 93 mg/dL 74-106 [facility] Potassium measurementOrdered By: Donald Waller on 04-10-2024 Potassium [Moles/Vol] 4.2 mmol/L 3.5-5.1 [facility] Serum anion gap measurementO rdered By: Donald Waller on 04-10-2024 Anion gap [Moles/Vol] 6 mmol/L 5-15 [facility] Serum or plasma calcium mika urement (mass/volume)Ordered By: Donald Waller on 04-10-2024 Calcium [Mass/Vol] 9.5 mg/dL 8.5-10.1 [facility] Serum or plasma creatinine m easurement (mass/volume)Ordered By: Donald Waller on 04-10-2024 Creatinine [Mass/Vol] 1.14 mg/dL High 0.55-1.02 [facility] Comment on above: The validity of the calculated GFR & GFRAA in patients over 70 years has not been determined. Clinical correlation is essential. Serum or plasma urea nitroge n measurement (mass/volume)Ordered By: Donald Waller on 04-10-2024 Urea nitrogen [Mass/Vol] 11 mg/dL 7-18 [facility] Sodium levelOrdered By: Donald Waller on 04-10-2024 Sodium [Moles/Vol] 139 mmol/L 136-145 [facility] Absolute neutrophil countOrd ered By: Donald Waller on 04-03-2024 Neutrophils (Bld) [#/Vol] 4.1 10*3/uL 2.0-7.7 [facility] Albumin to globulin ratioOrd ered By: Donald Waller on 04-03-2024 Albumin/Globulin [Mass ratio] 1.2 {ratio} 0.9-2.4 [facility] Basophil percentageOrdered B y: Donald Waller on 04-03-2024 Basophils/100 WBC (Bld) 0.5 % 0-1 [facility] Bilirubin Test strip Ql (U)O rdered By: Donald Waller on 04-03-2024 Bilirubin Ql (U) Negative Negative [facility] Bilirubin, totalOrdered By: Donald Waller on 04-03-2024 Bilirubin [Mass/Vol] 0.40 mg/dL 0.20-1.00 [facility] Comment on above: For patients on eltr ombopag therapy, use of Dimension Anselmo TBIL is not recommended. Blood urea nitrogen (BUN)/cr eatinine ratioOrdered By: Donald Waller on 04-03-2024 Urea nitrogen/Creatinine [Mass ratio] 14.5 mg/mg 10-20 [facility] CBC W/Diff, Automatedon 12-0 -2023 Absolute Lymph 2.63 X10 3/uL Normal 0.83-4.51 [facility] Comment on above: Order Comment: Order Date: 04/03/24Order Info: 0184-1 - CBCD Performed By: #### M 100.2200, L100.0100 #### [facility] [address] [place], [address] Absolute Neut 4.1 X10 3/uL Normal 2.0-7.7 [facility] Comment on above: Order Comment: Order Date: 04/03/24Order Info: 0184-1 - CBCD Performed By: #### M 100.2200, L100.0100 #### [facility] [address] [place], [address] Basophils/100 WBC (Bld) 0.5 % Normal 0-1 [facility] Comment on above: Order Comment: Order Date: 04/03/24Order Info: 0184-1 - CBCD Performed By: #### M 100.2200, L100.0100 #### [facility] [address] [place], [address] Eosinophils/100 WBC (Bld) 1.6 % Normal 0-5 [facility] Comment on above: Order Comment: Order Date: 04/03/24Order Info: 0184-1 - CBCD Performed By: #### M 100.2200, L100.0100 #### [facility] [address] [place], [address] Erythrocyte distribution width (RBC) [Ratio] 12.1 % Normal 11.6-14.6 [facility] Comment on above: Order Comment: Order Date: 04/03/24Order Info: 0184-1 - CBCD Performed By: #### M 100.2200, L100.0100 #### [facility] [address] [place], [address] Hematocrit (Bld) [Volume fraction] 39.2 % Normal 37-47 [facility] Comment on above: Order Comment: Order Date: 04/03/24Order Info: 018- - CBCD Performed By: #### M 100.2200, L100.0100 #### [facility] [address] [place], [address] Hemoglobin (Bld) [Mass/Vol] 12.8 g/dL Normal 12.0-15.0 [facility] Comment on above: Order Comment: Order Date: 04/03/24Order Info: 183- - CBCD Performed By: #### M 100.2200, L100.0100 #### [facility] [address] [place], [address] IG% 0.400 Normal 0.0-0.9 [facility] Comment on above: Order Comment: Order Date: 04/03/24Order Info: 018- - CBCD Result Comment: IG% - Immature Granulocytes (promyelocytes, myelocytes and metamyelocytes) > 1% indicates that a LEFT SHIFT is Present. Performed By: #### M 100.2200, L100.0100 #### [facility] [address] [place], [address] Lymphocytes/100 WBC (Bld) 35.3 % Normal 19-41 [facility] Comment on above: Order Comment: Order Date: 04/03/24Order Info: 018- - CBCD Performed By: #### M 100.2200, L100.0100 #### [facility] [address] [place], [address] MCH (RBC) [Entitic mass] 29.3 pg Normal 27.0-32.0 [facility] Comment on above: Order Comment: Order Date: 04/03/24Order Info: 018- - CBCD Performed By: #### M 100.2200, L100.0100 #### [facility] [address] [place], [address] MCHC (RBC) [Mass/Vol] 32.7 g/dL Normal 32-36 [facility] Comment on above: Order Comment: Order Date: 04/03/24Order Info: 0184-1 - CBCD Performed By: #### M 100.2200, L100.0100 #### [facility] [address] [place], [address] MCV (RBC) [Entitic vol] 89.7 fL Normal 81-99 [facility] Comment on above: Order Comment: Order Date: 04/03/24Order Info: 0184-1 - CBCD Performed By: #### M 100.2200, L100.0100 #### [facility] [address] [place], [address] Monocytes/100 WBC (Bld) 6.7 % Normal 0-10 [facility] Comment on above: Order Comment: Order Date: 04/03/24Order Info: 0184-1 - CBCD Performed By: #### M 100.2200, L100.0100 #### [facility] [address] [place], [address] Neutrophils/100 WBC (Bld) 55.5 % Normal 47-70 [facility] Comment on above: Order Comment: Order Date: 04/03/24Order Info: 0184-1 - CBCD Performed By: #### M 100.2200, L100.0100 #### [facility] [address] [place], [address] Nucleated RBC (Bld) [#/Vol] 0 10*3/uL Normal 0-5 [facility] Comment on above: Order Comment: Order Date: 04/03/24Order Info: 0184-1 - CBCD Performed By: #### M 100.2200, L100.0100 #### [facility] [address] [place], [address] Platelet mean volume (Bld) [Entitic vol] 10.8 fL Normal 6.2-12.0 [facility] Comment on above: Order Comment: Order Date: 04/03/24Order Info: 4-1 - CBCD Performed By: #### M 100.2200, L100.0100 #### [facility] [address] [place], [address] Platelets (Bld) [#/Vol] 248 10*3/uL Normal 150-450 [facility] Comment on above: Order Comment: Order Date: 04/03/24Order Info: 183- - CBCD Performed By: #### M 100.2200, L100.0100 #### [facility] [address] [place], [address] RBC (Bld) [#/Vol] 4.37 10*6/uL Normal 4.2-5.4 [facility] Comment on above: Order Comment: Order Date: 04/03/24Order Info: 183- - CBCD Performed By: #### M 100.2200, L100.0100 #### [facility] [address] [place], [address] RDW SD 40.1 fl Normal 35.1-43.9 [facility] Comment on above: Order Comment: Order Date: 04/03/24Order Info: 0184-1 - CBCD Performed By: #### M 100.2200, L100.0100 #### [facility] [address] [place], [address] WBC (Bld) [#/Vol] 7.5 10*3/uL Normal 4.4-11.0 [facility] Comment on above: Order Comment: Order Date: 04/03/24Order Info: 0184-1 - CBCD Performed By: #### M 100.2200, L100.0100 #### [facility] [address] [place], [address] Carbon dioxide measurementOr dered By: Donald Waller on 04-03-2024 CO2 [Moles/Vol] 27.0 mmol/L 21.0-32.0 [facility] Chloride measurementOrdered By: Donald Waller on 04-03-2024 Chloride [Moles/Vol] 109 mmol/L High 98-107 [facility] Comprehensive Metabolic Prof ilon 04-03-2024 Albumin [Mass/Vol] 4.1 g/dL Normal 3.2-5.0 [facility] Comment on above: Order Comment: Order Date: 04/03/24Order Info: 0786-1 - CMP Performed By: #### M 100.2200, L100.0100 #### [facility] [address] [place], [address] Albumin/Globulin [Mass ratio] 1.2 {ratio} Normal 0.9-2.4 [facility] Comment on above: Order Comment: Order Date: 04/03/24Order Info: 0786-1 - CMP Performed By: #### M 100.2200, L100.0100 #### [facility] [address] [place], [address] ALK P 54 U/L Normal 45-117 [facility] Comment on above: Order Comment: Order Date: 04/03/24Order Info: 0786-1 - CMP Performed By: #### M 100.2200, L100.0100 #### [facility] [address] [place], [address] ALT [Catalytic activity/Vol] 28 U/L Normal 13-56 [facility] Comment on above: Order Comment: Order Date: 04/03/24Order Info: 0786-1 - CMP Performed By: #### M 100.2200, L100.0100 #### [facility] [address] [place], [address] AST [Catalytic activity/Vol] 20 U/L Normal 15-37 [facility] Comment on above: Order Comment: Order Date: 04/03/24Order Info: 0786-1 - CMP Performed By: #### M 100.2200, L100.0100 #### [facility] [address] [place], [address] Bilirubin [Mass/Vol] 0.40 mg/dL Normal 0.20-1.00 [facility] Comment on above: Order Comment: Order Date: 04/03/24Order Info: 0786-1 - CMP Result Comment: For patients on eltrombopag therapy, use of Dimension Anselmo TBIL is not recommended. Performed By: #### M 100.2200, L100.0100 #### [facility] [address] [place], [address] BUN/CRE 14.5 RATIO Normal 10-20 [facility] Comment on above: Order Comment: Order Date: 04/03/24Order Info: 0786-1 - CMP Performed By: #### M 100.2200, L100.0100 #### [facility] [address] [place], [address] CA,Total 9.1 mg/dL Normal 8.5-10.1 [facility] Comment on above: Order Comment: Order Date: 04/03/24Order Info: 0786-1 - CMP Performed By: #### M 100.2200, L100.0100 #### [facility] [address] [place], [address] Chloride [Moles/Vol] 109 mmol/L High 98-107 [facility] Comment on above: Order Comment: Order Date: 04/03/24Order Info: 0786-1 - CMP Performed By: #### M 100.2200, L100.0100 #### [facility] [address] [place], [address] CO2 [Moles/Vol] 27.0 mmol/L Normal 21.0-32.0 [facility] Comment on above: Order Comment: Order Date: 04/03/24Order Info: 0786-1 - CMP Performed By: #### M 100.2200, L100.0100 #### [facility] [address] [place], [address] Creatinine [Mass/Vol] 1.10 mg/dL High 0.55-1.02 [facility] Comment on above: Order Comment: Order Date: 04/03/24Order Info: 0786- - CMP Result Comment: The validity of the calculated GFR GFRAA in patients over 70 years has not been determined. Clinical correlation is essential. Performed By: #### M 100.2200, L100.0100 #### [facility] [address] [place], [address] EST GFR - AA 78 mL/min Normal >60 [facility] Comment on above: Order Comment: Order Date: 04/03/24Order Info: 0786- - CMP Result Comment: Afri can Senegalese GFR Calc Performed By: #### M 100.2200, L100.0100 #### [facility] [address] [place], [address] GAP 4 Low 5-15 [facility] Comment on above: Order Comment: Order Date: 04/03/24Order Info: 0786- - CMP Performed By: #### M 100.2200, L100.0100 #### [facility] [address] [place], [address] GFR/1.73 sq M.predicted among non-blacks MDRD (S/P/Bld) [Vol rate/Area] 64 mL/min/{1.73_m2} Normal >60 [facility] Comment on above: Order Comment: Order Date: 04/03/24Order Info: 0786- - CMP Result Comment: Non- GFR Calc Performed By: #### M 100.2200, L100.0100 #### [facility] [address] [place], [address] Globulin (S) [Mass/Vol] 3.4 g/dL Normal 2.2-4.2 [facility] Comment on above: Order Comment: Order Date: 04/03/24Order Info: 0786-1 - CMP Performed By: #### M 100.2200, L100.0100 #### [facility] [address] [place], [address] Glucose [Mass/Vol] 77 mg/dL Normal 74-106 [facility] Comment on above: Order Comment: Order Date: 04/03/24Order Info: 0786-1 - CMP Performed By: #### M 100.2200, L100.0100 #### [facility] [address] [place], [address] Potassium [Moles/Vol] 3.8 mmol/L Normal 3.5-5.1 [facility] Comment on above: Order Comment: Order Date: 04/03/24Order Info: 0786-1 - CMP Performed By: #### M 100.2200, L100.0100 #### [facility] [address] [place], [address] Sodium [Moles/Vol] 140 mmol/L Normal 136-145 [facility] Comment on above: Order Comment: Order Date: 04/03/24Order Info: 0786-1 - CMP Performed By: #### M 100.2200, L100.0100 #### [facility] [facility] [address] [place], [address] T PROT 7.5 g/dL Normal 6.4-8.2 [facility] Comment on above: Order Comment: Order Date: 04/03/24Order Info: [id number] - CMP Performed By: #### M 100.2200, L100.0100 #### [facility] [address] [place], [address] Urea nitrogen [Mass/Vol] 16 mg/dL Normal 7-18 [facility] Comment on above: Order Comment: Order Date: 04/03/24Order Info: [id number] - CMP Performed By: #### M 100.6539, L100.0100 #### [facility] [address] [place], [address] Eosinophil percentageOrdered By: Donald Waller on 04-03-2024 Eosinophils/100 WBC (Bld) 1.6 % 0-5 [facility] Epithelial cells.squamous LM Ql (Urine sed)Ordered By: Donald Waller on 04-03-2024 Epithelial cells.squamous LM.HPF (Urine sed) [#/Area] 0 /[HPF] 5-10 [facility] Erythrocyte distribution wid th ratioOrdered By: Donald Waller on 04-03-2024 Erythrocyte distribution width (RBC) [Ratio] 12.1 % 11.6-14.6 [facility] Erythrocyte distribution wid th standard deviationOrdered By: Donald Waller on 04-03-2024 Erythrocyte distribution width (RBC) [Entitic vol] 40.1 fL 35.1-43.9 [facility] Estimated glomerular filtrat ion rate (GFR) AmericanOrdered By: Donald Waller on 04-03-2024 Estimated GFR (MDRD) Amer 78 mL/min >60 [facility] Comment on above: GFR Calc Glomerular filtration rate ( GFR) estimationOrdered By: Donald Waller on 04-03-2024 Estimated GFR (MDRD) Non-Af Amer 64 mL/min >60 [facility] Comment on above: Non- GFR Calc Glucose Ql (U)Ordered By: Chantal Waller on 04-03-2024 Urine Glucose (UA) Normal mg/dl Normal [facility] Glucose measurementOrdered B y: Donald Waller on 04-03-2024 Glucose [Mass/Vol] 77 mg/dL 74-106 [facility] Hematocrit Auto (Bld) [Volum e fraction]Ordered By: Donald Waller on 04-03-2024 Hematocrit (Bld) [Volume fraction] 39.2 % 37-47 [facility] Hemoglobin measurementOrdere d By: Donald Waller on 04-03-2024 Hemoglobin (Bld) [Mass/Vol] 12.8 g/dL 12.0-15.0 [facility] Immature granulocytes/100 WB C Auto (Bld)Ordered By: Donald Waller on 04-03-2024 Immature granulocytes/100 WBC (Bld) 0.400 % 0.0-0.9 [facility] Comment on above: IG% - Immature Granu locytes (promyelocytes, myelocytes and metamyelocytes) > 1% indicates that a LEFT SHIFT is Present. Ketones Test strip Ql (U)Ord ered By: Donald Waller on 04-03-2024 Ketones Ql (U) Negative Negative [facility] - Chemistry and C hemistry - challengeOrdered By: Donald Waller on 04-03-2024 AST [Catalytic activity/Vol] 20 U/L 15-37 [facility] Lymphocytes Auto (Unsp spec) [#/Vol]Ordered By: Donald Waller on 04-03-2024 Lymphocytes (Bld) [#/Vol] 2.63 10*3/uL 0.83-4.51 [facility] Lymphocytes/100 WBC Auto (Un sp spec)Ordered By: Donald Waller on 04-03-2024 Lymphocytes/100 WBC (Bld) 35.3 % 19-41 [facility] MCV (mean corpuscular volume ) determinationOrdered By: Donald Waller on 04-03-2024 MCV (RBC) [Entitic vol] 89.7 fL 81-99 [facility] Mean corpuscular hemoglobin (MCH) determinationOrdered By: Donald Waller on 04-03-2024 MCH (RBC) [Entitic mass] 29.3 pg 27.0-32.0 [facility] Mean corpuscular hemoglobin concentration (MCHC) determinationOrdered By: Donald Waller on 04-03-2024 MCHC (RBC) [Mass/Vol] 32.7 g/dL 32-36 [facility] Mean platelet volume determi nationOrdered By: Donald Waller on 04-03-2024 Platelet mean volume (Bld) [Entitic vol] 10.8 fL 6.2-12.0 [facility] Microscopic analysis of urin e for red blood cells (RBC)Ordered By: Donald Waller on 04-03-2024 Urine RBC 0 SEEN /hpf 0-5 [facility] Monocyte percentageOrdered B y: Donald Waller on 04-03-2024 Monocytes/100 WBC (Bld) 6.7 % 0-10 [facility] Mucus LM Ql (Urine sed)Order ed By: Donald Waller on 04-03-2024 Mucus Ql (Urine sed) RARE /hpf [facility] Neutrophil percentageOrdered By: Donald Waller on 04-03-2024 Neutrophils/100 WBC (Bld) 55.5 % 47-70 [facility] Nitrite Test strip Ql (U)Ord ered By: Donald Waller on 04-03-2024 Nitrite Ql (U) Negative Negative [facility] Nucleated red blood cell per centageOrdered By: Donald Waller on 04-03-2024 Nucleated RBC/100 WBC (Bld) [Ratio] 0 % 0-5 [facility] Platelet countOrdered By: Chantal Waller on 04-03-2024 Platelets (Bld) [#/Vol] 248 10*3/uL 150-450 [facility] Potassium measurementOrdered By: Donald Waller on 04-03-2024 Potassium [Moles/Vol] 3.8 mmol/L 3.5-5.1 [facility] Protein Test strip Ql (U)Ord ered By: Donald Waller on 04-03-2024 Protein Ql (U) Negative Negative [facility] RBC Auto (Bld) [#/Vol]Ordere d By: Donald Waller on 04-03-2024 RBC (Bld) [#/Vol] 4.37 10*6/uL 4.2-5.4 [facility] Serum anion gap measurementO rdered By: Donald Waller on 04-03-2024 Anion gap [Moles/Vol] 4 mmol/L Low 5-15 [facility] Serum globulin measurementOr dered By: Donald Waller on 04-03-2024 Globulin (S) [Mass/Vol] 3.4 g/dL 2.2-4.2 [facility] Serum or plasma alanine terrazas otransferase (ALT) measurementOrdered By: Donald Waller on 04-03-2024 ALT [Catalytic activity/Vol] 28 U/L 13-56 [facility] Serum or plasma albumin mika urement (mass/volume)Ordered By: Donald Waller on 04-03-2024 Albumin [Mass/Vol] 4.1 g/dL 3.2-5.0 [facility] Serum or plasma alkaline lebron sphatase measurementOrdered By: Donald Waller on 04-03-2024 ALP [Catalytic activity/Vol] 54 U/L 45-117 [facility] Serum or plasma calcium mika urement (mass/volume)Ordered By: Donald Waller on 04-03-2024 Calcium [Mass/Vol] 9.1 mg/dL 8.5-10.1 [facility] Serum or plasma creatinine m easurement (mass/volume)Ordered By: Donald Waller on 04-03-2024 Creatinine [Mass/Vol] 1.10 mg/dL High 0.55-1.02 [facility] Comment on above: The validity of the calculated GFR & GFRAA in patients over 70 years has not been determined. Clinical correlation is essential. Serum or plasma urea nitroge n measurement (mass/volume)Ordered By: Donald Waller on 04-03-2024 Urea nitrogen [Mass/Vol] 16 mg/dL 7-18 [facility] Sodium levelOrdered By: Donald Waller on 04-03-2024 Sodium [Moles/Vol] 140 mmol/L 136-145 [facility] Total proteinOrdered By: Carlos Waller on 04-03-2024 Protein [Mass/Vol] 7.5 g/dL 6.4-8.2 [facility] Urinalysis, Completeon 04-03 EPI,SQUAMOUS 0-5 SEEN Normal 5-10 [facility] Comment on above: Order Comment: Order Date: 04/03/24Order Info: [id number] - UACCOLLECTOR TO SPECIFY Performed By: #### M 100.2200, L100.0100 #### [facility] [address] [place], [address] Mucus Ql (Urine sed) RARE Normal [facility] Comment on above: Order Comment: Order Date: 04/03/24Order Info: [id number] - UACCOLLECTOR TO SPECIFY Performed By: #### M 100.2200, L100.0100 #### [facility] [address] [place], [address] BILIRUBIN URINE Negative Normal Negative [facility] Comment on above: Order Comment: Order Date: 04/03/24Order Info: [id number] - UACCOLLECTOR TO SPECIFY Performed By: #### M 100.2200, L100.0100 #### [facility] [address] [place], [address] Clarity (U) Clear Normal Clear [facility] Comment on above: Order Comment: Order Date: 04/03/24Order Info: [id number] - UACCOLLECTOR TO SPECIFY Performed By: #### M 100.2200, L100.0100 #### [facility] [address] [place], [address] Color (U) Straw Normal Yellow [facility] Comment on above: Order Comment: Order Date: 04/03/24Order Info: [id number] - UACCOLLECTOR TO SPECIFY Performed By: #### M 100.2200, L100.0100 #### [facility] [address] [place], [address] GLUCOSE, UR Normal Normal Normal [facility] Comment on above: Order Comment: Order Date: 04/03/24Order Info: [id number] - UACCOLLECTOR TO SPECIFY Performed By: #### M 100.2200, L100.0100 #### [facility] [address] [place], [address] KETONE UR Negative Normal Negative [facility] Comment on above: Order Comment: Order Date: 04/03/24Order Info: [id number] - UACCOLLECTOR TO SPECIFY Performed By: #### M 100.2200, L100.0100 #### [facility] [address] [place], [address] LEUK ESTERASE Negative Normal Negative [facility] Comment on above: Order Comment: Order Date: 04/03/24Order Info: [id number] - UACCOLLECTOR TO SPECIFY Performed By: #### M 100.2200, L100.0100 #### [facility] [address] [place], [address] Nitrite Ql (U) Negative Normal Negative [facility] Comment on above: Order Comment: Order Date: 04/03/24Order Info: [id number] - UACCOLLECTOR TO SPECIFY Performed By: #### M 100.2200, L100.0100 #### [facility] [address] [place], [address] OCCULT BLOOD-UR Negative Normal Negative [facility] Comment on above: Order Comment: Order Date: 04/03/24Order Info: [id number] - UACCOLLECTOR TO SPECIFY Performed By: #### M 100.2200, L100.0100 #### [facility] [address] [place], [address] pH UR 7.0 Normal 5.0 - 8.0 [facility] Comment on above: Order Comment: Order Date: 04/03/24Order Info: [id number] - UACCOLLECTOR TO SPECIFY Performed By: #### M 100.2200, L100.0100 #### [facility] [address] [place], [address] PROT DIPSTX Negative Normal Negative [facility] Comment on above: Order Comment: Order Date: 04/03/24Order Info: [id number] - UACCOLLECTOR TO SPECIFY Performed By: #### M 100.2200, L100.0100 #### [facility] [address] [place], [address] SP.GR. DIPSTX 1.010 Normal 1.002-1.030 [facility] Comment on above: Order Comment: Order Date: 04/03/24Order Info: [id number] - UACCOLLECTOR TO SPECIFY Performed By: #### M 100.2200, L100.0100 #### [facility] [address] [place], [address] UROBILI Normal Normal Normal [facility] Comment on above: Order Comment: Order Date: 04/03/24Order Info: [id number] - UACCOLLECTOR TO SPECIFY Performed By: #### M 100.2200, L100.0100 #### [facility] [address] [place], [address] BACTERIA 0 SEEN Normal None Seen [facility] Comment on above: Order Comment: Order Date: 04/03/24Order Info: [id number] - UACCOLLECTOR TO SPECIFY Performed By: #### M 100.2200, L100.0100 #### [facility] [address] [place], [address] RBC 0 SEEN Normal 0-5 [facility] Comment on above: Order Comment: Order Date: 04/03/24Order Info: [id number] - UACCOLLECTOR TO SPECIFY Performed By: #### M 100.2200, L100.0100 #### [facility] [address] [place], [address] WBC 0 SEEN Normal 0-5 [facility] Comment on above: Order Comment: Order Date: 04/03/24Order Info: [id number] - UACCOLLECTOR TO SPECIFY Performed By: #### M 100.2200, L100.0100 #### [facility] [address] [place], [address] Urine blood detectionOrdered By: Donald Waller on 04-03-2024 Urine Occult Blood Negative Negative [facility] Urine clarityOrdered By: Carlos Waller on 04-03-2024 Clarity (U) Clear Clear [facility] Urine color determinationOrd ered By: Donald Waller on 04-03-2024 Color (U) Straw Yellow [facility] Urine leukocyte esterase det ection by dipstickOrdered By: Donald Waller on 04-03-2024 Leukocyte esterase Test strip Ql (U) Negative Negative [facility] Urine pHOrdered By: Donald marie on 04-03-2024 pH (U) 7.0 [pH] 5.0 - 8.0 [facility] Urine sediment bacteria coun t by microscopy (number/high power field)Ordered By: Donald Waller on 04-03-2024 Bacteria LM.HPF (Urine sed) [#/Area] 0 /[HPF] None Seen [facility] Urine specific gravity measu rementOrdered By: Donald Waller on 04-03-2024 Specific gravity (U) [Rel density] 1.010 1.002-1.030 [facility] Urobilinogen Ql (U)Ordered B y: Donald Waller on 04-03-2024 Urine Urobilinogen Normal mg/dl Normal [facility] White blood cell (WBC) count Ordered By: Donald Waller on 04-03-2024 WBC (Bld) [#/Vol] 7.5 10*3/uL 4.4-11.0 [facility] White blood cell countOrdere d By: Donald Waller on 04-03-2024 Urine WBC 0 SEEN /hpf 0-5 [facility] MEASLES,MUMP,RUBELLAon 05-13 MUMPS ABS, IGG 53.6 AU/mL Normal Immune >10.9 [facility] Comment on above: Result Comment: (NOT E) Negative <9.0 Equivocal 9.0 - 10.9 Positive >10.9 A positive result generally indicates past exposure to Mumps virus or previous vaccination. PERFORMED AT [facility] Performed By: #### L MMR #### Testing performed at [facility] [address] [place] [address] [place] [address] RUBEOLA AB, IGG 49.1 AU/mL Normal Immune >16.4 [facility] Comment on above: Result Comment: (NOT E) Negative <13.5 Equivocal 13.5 - 16.4 Positive >16.4 Presence of antibodies to Rubeola is presumptive evidence of immunity except when acute infection is suspected. Performed By: #### L MMR #### Testing performed at [facility] [address] [place] [address] RUBELLA AB, IGG 2.63 index Normal Immune >0.99 [facility] Comment on above: Result Comment: (NOT E) Non-immune <0.90 Equivocal 0.90 - 0.99 Immune >0.99 Performed By: #### L MMR #### Testing performed at [address] [address] HEP B SURFACE ABon 0 HEP B SURFACE AB Negative Abnormal POSITIVE [facility] Comment on above: Result Comment: Clinical Interpretation of Immune Status Negative: patient is considered to be not immune to infection with HBV Intermediate: unable to determine if anti-HBs is present at levels consistent with immunity Positive: anti-HBs detected, patient is considered to be immune to infection with HBV Performed By: #### L MMR #### Testing performed at [address] [address] HEP C ABon 05-12-2019 HEP C AB Negative Normal NEGATIVE [facility] Comment on above: Performed By: #### L MMR #### Testing performed at [address] [address] FAX REQUESTon 05-11-2019 FAX TO [facility] Comment on above: Performed By: #### L MMR #### Testing performed at [address] [address] HSV by PCR Superficial Siteo n 11-27-2017 HSV by PCR Superficial Site Abnormal NEG [facility] Comment on above: Result Comment: Posi tiveFinal ReportHerpes Simplex virus (HSV) DNA WAS DETECTED by the polymerase chain reaction (PCR) method on this specimen. These results suggest that the patient is infected with HSV at the site tested.This test was developed and its performance characteristics determined by [facility]. It has not been cleared or approved by the U.S. Food and Drug Administration. The FDA has determined that such clearance or approval is not necessary. This test is used for clinical purposes. It should not be regarded as investigational or for research. Performed By: #### H SVTT2 ####Performed at [facility], [address] [place] [address] HSV Type HERPES SIMPLEX VIRUS , TYPE [address] [facility] Comment on above: Performed By: #### H SVTT2 ####[place] [address] HSV by PCR Superficial Siteo n 11-26-2017 Specimen Description [facility] on above: Result Comment: LipU PPERRight Performed By: #### H SVTT2 ####[place] [address] Virus Cultureon 11-25-2017 Virus Culture Specimen description : Lesion Lip UPPER Right Special requests: None Culture results: No Virus Isolated After 1 Day Report status: Pending Normal [facility] Comment on above: Performed By: #### V IRC ####[place] [address] XR Spine Lumbosacral 2 or 3 Viewson 11-20-2017 INR Coag RelTime (Bld) Exam Date/Time:11/19/2017 14:07 EDTReason for Exam:low back painReportSTUDY:XR Spine Lumbosacral 2 or 3 Views; 11/19/2017 2:07 pmINDICATION:low back pain.COMPARISON:None. [id number] CLINICIAN:Pa SolisFINDINGS:3 views of the lumbar spine [...] by: Mp Ordaz MD Technologist: [facility] XR Spine Thoracic 3 Viewson 11-20-2017 INR Coag RelTime (Bld) Exam Date/Time:11/19/2017 14:07 EDTReason for Exam:mid back painReportSTUDY:XR Spine Thoracic 3 Views; 11/19/2017 2:07 pmINDICATION:mid back pain.COMPARISON:None. [id number] CLINICIAN:Pa SolisFINDINGS:3 views of the thoracic spine [...] by: Mp Ordaz MD Technologist: GLP Normal [facility] C trach/N anthony Amplified Prob yany 07-02-2017 C. trachomatis amp. Abnormal NODT [facility] Comment on above: Result Comment: DETE [...] urine may result in reduced sensitivity. Normal [facility] N. gonorrhoeae amp. Not Detected Normal NODT [facility] Specimen Description Urine Normal [facility] Chlamydia GC by PCRon 2016 Chlamydia by PCR. Not Detected Normal Not Detected [facility] Comment on above: Result Comment: Xper t CT/NG Assay performance has not been evaluated in patients less than 14 years of age. Performed By: #### [id number] ####DANIEL Winters [employer] SubSection, Gonorrhoeae by PCR Not Detected Normal Not Detected [facility] Comment on above: Result Comment: Xper t CT/NG Assay performance has not been evaluated in patients less than 14 years of age. Performed By: #### [id number] ####DANIEL Wintersc [employer] SubSection, Vital Signs Date Time Vital Sign Value Performing Clinician Buffy avila 01-04-2025 15:10-0400 Body height 172.[address] Donald Waller MD Work Phone: 7(267)454-154364 [place] [address] 01-04-2025 15:10-0400 Body mass index (BMI) [Ratio] 45.2 kg/m2 Dr. Donald Waller MD Work Phone: 2(173)022-586664 [place] [address] 01-04-2025 15:10-0400 Body weight 134.[address] Donald Waller MD Work Phone: 3(355)135-120796 [place] [address] 01-04-2025 15:10-0400 Diastolic blood pressure 85 mm[Hg] Dr. Donald Waller MD Work Phone: 9(836)825-866296 [place] [address] 01-04-2025 15:10-0400 Systolic blood pressure 129 mm[Hg] Dr. Donald Waller MD Work Phone: 6(966)911-397896 [place] [address] 12-30-2024 15:11-0400 Body height 172.[address] Donald Waller MD Work Phone: 9(023)328-582396 [place] [address] 12-30-2024 15:08-0400 Body mass index (BMI) [Ratio] 45 kg/m2 Dr. Donald Waller MD Work Phone: 1(678)307-762096 [place] [address] 12-30-2024 15:08-0400 Body weight 134.[address] Donald Waller MD Work Phone: 3(676)236-432196 [place] [address] 12-30-2024 15:08-0400 Diastolic blood pressure 82 mm[Hg] Dr. Donald Waller MD Work Phone: 9(037)225-150996 [place] [address] 12-30-2024 15:08-0400 Systolic blood pressure 119 mm[Hg] Dr. Donald Waller MD Work Phone: 7(730)685-505596 [place] [address] 12-22-2024 12:59-0400 Body height 172.[address] Donald Waller MD Work Phone: 3(433)207-949596 [place] [address] 12-22-2024 12:59-0400 Body mass index (BMI) [Ratio] 44.5 kg/m2 Dr. Donald Waller MD Work Phone: 5(483)818-399896 [place] [address] 12-22-2024 12:59-0400 Body weight 132.[address] Donald Waller MD Work Phone: [facility] 12-22-2024 12:59-0400 Diastolic blood pressure 83 mm[Hg] Dr. Donald Waller MD Work Phone: [facility] 12-22-2024 12:59-0400 Systolic blood pressure 119 mm[Hg] Dr. Donald Waller MD Work Phone: [facility] 12-17-2024 15:50-0400 Body height 172.[address] Donald Waller MD Work Phone: 4(851)943-959164 [place] [address] 12-17-2024 15:48-0400 Body mass index (BMI) [Ratio] 44.2 kg/m2 Dr. Donald Waller MD Work Phone: 5(825)107-508164 [place] [address] 12-17-2024 15:48-0400 Body weight 132.[address] Donald Waller MD Work Phone: 1(696)194-867664 [place] [address] 12-17-2024 15:48-0400 Diastolic blood pressure 87 mm[Hg] Dr. Donald Waller MD Work Phone: 9(861)076-296064 [place] [address] 12-17-2024 15:48-0400 Systolic blood pressure 138 mm[Hg] Dr. Donald Waller MD Work Phone: [facility] 12-08-2024 09:37-0400 Body height 172.[address] Donald Waller MD Work Phone: 2(697)854-397264 [place] [address] 12-08-2024 09:37-0400 Body mass index (BMI) [Ratio] 43.5 kg/m2 Dr. Donald Waller MD Work Phone: 4(930)654-229364 [place] [address] 12-08-2024 09:37-0400 Body weight 129.[address] Donald Waller MD Work Phone: [facility] 12-08-2024 09:37-0400 Diastolic blood pressure 82 mm[Hg] Dr. Donald Waller MD Work Phone: 7(770)825-479464 [place] [address] 12-08-2024 09:37-0400 Systolic blood pressure 130 mm[Hg] Dr. Donald Waller MD Work Phone: 8(778)685-355564 [place] [address] 11-27-2024 14:23-0400 Body height 172.[address] Donald Waller MD Work Phone: 9(389)698-450196 [place] [address] 11-27-2024 14:23-0400 Body mass index (BMI) [Ratio] 42.9 kg/m2 Dr. Donald Waller MD Work Phone: 1(267)477-860696 [place] [address] 11-27-2024 14:23-0400 Body weight 127.[address] Donald Waller MD Work Phone: 2(868)524-341696 [place] [address] 11-27-2024 14:23-0400 Diastolic blood pressure 85 mm[Hg] Dr. Donald Waller MD Work Phone: 3(958)661-267696 [place] [address] 11-27-2024 14:23-0400 Systolic blood pressure 138 mm[Hg] Dr. Donald Waller MD Work Phone: 8(557)634-212896 [place] [address] 11-19-2024 08:40-0400 Body height 172.[address] Donald Waller MD Work Phone: 4(567)273-305996 [place] [address] 11-19-2024 08:40-0400 Body mass index (BMI) [Ratio] 41.4 kg/m2 Dr. Donald Waller MD Work Phone: [phone])[phone] [address] [place] [address] 11-19-2024 08:40-0400 Body weight 123.[address] Donald Waller MD Work Phone: 8(538)460-744864 [place] [address] 11-19-2024 08:40-0400 Diastolic blood pressure 84 mm[Hg] Dr. Donald Waller MD Work Phone: 7(286)432-997196 [place] [address] 11-19-2024 08:40-0400 Systolic blood pressure 126 mm[Hg] Dr. Donald Waller MD Work Phone: 2(364)048-540096 [place] [address] 11-09-2024 15:36-0400 Body height 172.[address] Donald Waller MD Work Phone: 8(187)250-443896 [place] [address] 11-09-2024 15:36-0400 Body mass index (BMI) [Ratio] 41.5 kg/m2 Dr. Donald Waller MD Work Phone: 7(694)808-267264 [place] [address] 11-09-2024 15:36-0400 Body weight 123.[address] Donald Waller MD Work Phone: 9(377)886-579596 [place] [address] 11-09-2024 15:36-0400 Diastolic blood pressure 84 mm[Hg] Dr. Donald Waller MD Work Phone: 7(897)838-769396 [place] [address] 11-09-2024 15:36-0400 Systolic blood pressure 133 mm[Hg] Dr. Donald Waller MD Work Phone: 1(479)738-925096 [place] [address] 10-27-2024 13:28-0400 Body height 172.[address] Donald Waller MD Work Phone: 5(038)454-836296 [place] [address] 10-27-2024 13:27-0400 Body mass index (BMI) [Ratio] 40.3 kg/m2 Dr. Donald Waller MD Work Phone: 0(741)808-291196 [place] [address] 10-27-2024 13:27-0400 Body weight 120.[address] Donald Waller MD Work Phone: 1(788)900-695396 [place] [address] 10-27-2024 13:27-0400 Diastolic blood pressure 87 mm[Hg] Dr. Donald Waller MD Work Phone: 1(849)326-466396 [place] [address] 10-27-2024 13:27-0400 Systolic blood pressure 133 mm[Hg] Dr. Donald Waller MD Work Phone: 7(754)470-979196 [place] [address] 09-28-2024 14:56-0400 Body height 172.[address] Donald Waller MD Work Phone: 1(445)851-228196 [place] [address] 09-28-2024 14:56-0400 Body mass index (BMI) [Ratio] 39.8 kg/m2 Dr. Donald Waller MD Work Phone: 6(556)831-136596 [place] [address] 09-28-2024 14:56-0400 Body weight 118.[address] Donald Waller MD Work Phone: [facility] 09-28-2024 14:56-0400 Diastolic blood pressure 76 mm[Hg] Dr. Donald Waller MD Work Phone: [facility] 09-28-2024 14:56-0400 Systolic blood pressure 122 mm[Hg] Dr. Donald Waller MD Work Phone: 0(095)890-069664 [place] [address] 09-28-2024 07:30-0400 Body height 172.[address] Donald Waller MD Work Phone: 0(101)645-037762 [address] 09-28-2024 07:30-0400 Body mass index (BMI) [Ratio] 40 kg/m2 Dr. Donald Waller MD Work Phone: 1(344)162-354296 [place] [address] 09-28-2024 07:30-0400 Body temperature 98.8 [degF] Dr. Donald Waller MD Work Phone: 0(568)160-789664 [place] [address] 09-28-2024 07:30-0400 Body weight 119.[address] Donald Waller MD Work Phone: 4(316)097-750864 [place] [address] 09-28-2024 07:30-0400 Diastolic blood pressure 80 mm[Hg] Dr. Donald Waller MD Work Phone: 5(380)013-618964 [place] [address] 09-28-2024 07:30-0400 Heart rate 90 /min Dr. Donald Waller MD Work Phone: 4(939)546-141464 [place] [address] 09-28-2024 07:30-0400 SaO2% (BldA) [Mass fraction] 99 % Dr. Donald Waller MD Work Phone: 4(707)914-782164 [place] [address] 09-28-2024 07:30-0400 Systolic blood pressure 120 mm[Hg] Dr. Donald Waller MD Work Phone: 3(556)224-851864 [place] [address] 09-01-2024 15:02-0400 Body mass index (BMI) [Ratio] 37.4 kg/m2 Dr. Donald Waller MD Work Phone: 9(762)116-771364 [place] [address] 09-01-2024 15:02-0400 Body weight 111.[address] Donald Waller MD Work Phone: [facility] 09-01-2024 15:02-0400 Diastolic blood pressure 81 mm[Hg] Dr. Donald Waller MD Work Phone: [facility] 09-01-2024 15:02-0400 Systolic blood pressure 125 mm[Hg] Dr. Donald Waller MD Work Phone: 4(540)582-301464 [place] [address] 08-04-2024 10:40-0400 Body height 172.[address] Donald Waller MD Work Phone: 7(334)876-264962 [address] 08-04-2024 10:40-0400 Body mass index (BMI) [Ratio] 35.8 kg/m2 Dr. Donald Waller MD Work Phone: 5(294)592-360562 [address] 08-04-2024 10:40-0400 Body weight 106.[address] Donald Waller MD Work Phone: 7(879)467-920764 [place] [address] 08-04-2024 10:40-0400 Diastolic blood pressure 82 mm[Hg] Dr. Donald Waller MD Work Phone: 5(019)181-262264 [place] [address] 08-04-2024 10:40-0400 Systolic blood pressure 124 mm[Hg] Dr. Donald Waller MD Work Phone: 5(687)450-463564 [place] [address] 07-07-2024 15:11-0400 Body height 172.[address] Donald Waller MD Work Phone: 2(129)892-731764 [place] [address] 07-07-2024 15:11-0400 Body mass index (BMI) [Ratio] 34.7 kg/m2 Dr. Donald Waller MD Work Phone: 6(419)508-980164 [place] [address] 07-07-2024 15:11-0400 Body weight 103.[address] Donald Waller MD Work Phone: 2(429)688-503264 [place] [address] 07-07-2024 15:11-0400 Diastolic blood pressure 84 mm[Hg] Dr. Donald Waller MD Work Phone: 0(105)165-549064 [place] [address] 07-07-2024 15:11-0400 Systolic blood pressure 131 mm[Hg] Dr. Donald Waller MD Work Phone: [facility] 06-04-2024 13:01-0500 Body mass index (BMI) [Ratio] 34.4 kg/m2 Dr. Donald Waller MD Work Phone: [facility] 06-04-2024 13:01-0500 Body weight 102.[address] Donald Waller MD Work Phone: [facility] 06-04-2024 13:01-0500 Diastolic blood pressure 82 mm[Hg] Dr. Donald Waller MD Work Phone: [facility] 06-04-2024 13:01-0500 Systolic blood pressure 128 mm[Hg] Dr. Donald Waller MD Work Phone: [facility] 04-15-2024 11:31-0500 Body mass index (BMI) [Ratio] 32.8 kg/m2 Dr. Donald Waller MD Work Phone: [facility] 04-15-2024 11:31-0500 Body weight 97.[address] Donald Waller MD Work Phone: [facility] 04-15-2024 11:31-0500 Diastolic blood pressure 71 mm[Hg] Dr. Donald Waller MD Work Phone: [facility] 04-15-2024 11:31-0500 Systolic blood pressure 128 mm[Hg] Dr. Donald Waller MD Work Phone: [facility] Encounters Encounter Date Encounter Type Care Provider Facility Start: 01-04-2025 End: 01-04-[address] Nita Mcintosh MD -[facility] Work Phone: Start: 01-04-2025 End: 01-04-[address] Donald Waller MD Work Phone: -[facility] Start: 12-30-2024 End: 12-30-[address] Susan Chavez DO -[facility] Work Phone: Start: 12-30-2024 End: 12-30-[address] Donald Waller MD Work Phone: [facility] Start: 12-22-2024 End: 12-22-[address] Nita Mcintosh MD -[facility] Work Phone: Start: 12-22-2024 End: 12-22-[address] Donald Waller MD Work Phone: [facility] Start: 12-17-2024 End: 12-17-[address] Nita Mcintosh MD -[facility] Work Phone: Start: 12-17-2024 End: 12-17-[address] Donald Waller MD Work Phone: [facility] Start: 12-17-2024 End: 12-17-2024 ambulatory Donald Waller Facility:[facility] Start: 12-08-2024 End: 12-08-2024 Patient encounter procedure Susie Solomon CNM -[facility] Work Phone: Start: 12-08-2024 End: 12-08-[address] Donald Waller MD Work Phone: [facility] Start: 11-27-2024 End: 11-27-[address] Nita Mcintosh MD -[facility] Work Phone: Start: 11-27-2024 End: 11-27-[address] Donald Waller MD Work Phone: [facility] Start: 11-19-2024 End: 11-19-[address] Nita Mcintosh MD -[facility] Work Phone: Start: 11-19-2024 End: 11-19-[address] Donald Waller MD Work Phone: [facility] Start: 11-19-2024 End: 11-19-2024 ambulatory Donald Waller Facility:[facility] Start: 11-09-2024 End: 11-09-[address] Nita Mcintosh MD -[facility] Work Phone: Start: 11-09-2024 End: 11-09-[address] Donald Waller MD Work Phone: [facility] Start: 10-27-2024 End: 10-27-2024 Patient encounter procedure Jennifer FISHERC -[facility] Work Phone: Start: 10-27-2024 End: 10-27-[address] Donald Waller MD Work Phone: [facility] Start: 10-27-2024 Non-patient / Non-visit Dr. Jaida Mcpherson MD -[facility] Work Phone: Start: 10-27-2024 End: 10-27-2024 ambulatory Donald Waller Facility:[facility] Start: 10-10-2024 End: 10-10-[address] Donald Waller MD Work Phone: [facility] Work Phone: Start: 10-10-2024 End: 10-10-[address] Donald Waller MD -Laboratory [facility] Work Phone: Start: 10-10-2024 End: 10-10-2024 ambulatory Donald Waller Facility:[facility] Start: 09-28-2024 End: 09-28-2024 Patient encounter procedure Jennifer AGARWAL -[facility] Work Phone: Start: 09-28-2024 End: 09-28-[address] Donald Waller MD Work Phone: [facility] Work Phone: Start: 09-28-2024 End: 09-28-2024 Patient encounter procedure Dinh Lorenzana CO -[facility] Work Phone: Start: 09-28-2024 End: 09-28-[address] Donald Waller MD Work Phone: [facility] Work Phone: Start: 09-01-2024 End: 09-01-[address] Susan Chavez DO -[facility] Work Phone: Start: 09-01-2024 End: 09-01-2024 ambulatory Donald Waller Facility:[facility] Start: 08-19-2024 End: 08-19-[address] Nita Mcintosh MD -Ultrasound [facility] Work Phone: Start: 08-19-2024 End: 08-19-2024 ambulatory Donald Waller Facility:[facility] Start: 08-04-2024 End: 08-04-2024 Patient encounter procedure Jennifer Willard NP- -[facility] Work Phone: Start: 08-04-2024 End: 08-04-[address] Donald Waller MD Work Phone: [facility] Work Phone: Start: 08-04-2024 End: 08-04-2024 ambulatory Jennifer Willard NP Facility:[facility] Start: 07-07-2024 End: 07-07-[address] Donald Waller MD Work Phone: [facility] Work Phone: Start: 07-07-2024 End: 07-07-[address] Nita Mcintosh MD -Lab, [facility] Start: 07-07-2024 End: 07-07-[address] Nita Mcintosh MD -[facility] Work Phone: Start: 07-07-2024 End: 07-07-2024 ambulatory Donald Waller Facility:[facility] Start: 07-07-2024 End: 07-07-2024 ambulatory Donald Waller Facility:[facility] Start: 06-04-2024 End: 06-04-2024 Patient encounter procedure Susie Solomon CNM -Laboratory, Specimen Work Phone: Start: 06-04-2024 End: 06-04-2024 Patient encounter procedure Susie Solomon CNM -[facility] Work Phone: Start: 06-04-2024 End: 06-04-2024 ambulatory Donald Waller Facility:[facility] Start: 06-04-2024 End: 06-04-2024 ambulatory Donald Waller Facility:[facility] Start: 04-15-2024 End: 04-15-[address] Donald Waller MD -Ultrasound, [facility] Work Phone: Start: 04-15-2024 End: 04-15-2024 Patient encounter procedure Magda AGARWAL -[facility] Work Phone: Start: 04-15-2024 End: 04-15-2024 Patient encounter status Magda AGARWAL [facility] Start: 04-15-2024 End: 04-15-2024 ambulatory Donald Waller Facility:[facility] Start: 04-15-2024 End: 04-15-2024 ambulatory Donald Waller Facility:[facility] Start: 04-10-2024 End: 04-10-[address] Donald Waller MD -Laboratory, Specimen Work Phone: Start: 04-10-2024 End: 04-10-2024 ambulatory Donald Waller Facility:[facility] Start: 04-03-2024 End: 04-03-[address] Donald Waller MD -Laboratory, [facility] Start: 04-03-2024 End: 04-03-2024 ambulatory Donald Waller Facility:[facility] Start: 11-26-2017 Patient encounter ELENI VIDAL [facility] Start: 11-19-2017 End: 11-20-2017 Patient encounter [facility] Facility:[facility] Start: 11-19-2017 Patient encounter Facil [id number] Start: 11-05-2017 Ambulatory [facility] Facility :[place] Start: 07-02-2017 End: 07-02-2017 Patient encounter [facility] Start: 12-21-2016 End: 12-22-2016 Patient encounter [facility] Facility:[facility] Procedures Date Procedure Procedure Detail [...] HCV Quant by PCR testing - HCVPCR #[id number] Non Reactive: < 0.8 Equivocal: >/= 0.8 [...] B Streptococcus Culture Group B Streptococcus Culture [facility] Start: 12-17-2024 Streptococcus agalactiae [Presence] in Unspecified specimen by Organism specific culture [facility] Start: 11-19-2024 Bacteria identified in Urine by Culture Urine Culture [facility] Start: 11-19-2024 CBC W Auto Differential panel - Blood [facility] Start: 11-19-2024 [facility] Start: 10-27-2024 Comprehensive metabolic 2000 panel - Serum or Plasma [facility] Start: 10-27-2024 CBC W Auto Differential panel - Blood [facility] Start: 10-27-2024 Serologic test for syphilis [facility] Start: 10-27-2024 [facility] Alanine aminotransfe rase [Enzymatic activity/volume] in Serum or Plasma [facility] Albumin [Mass/volume ] in Serum or Plasma [facility] Alkaline phosphatase [Enzymatic activity/volume] in Serum or Plasma [facility] Anion gap in Serum o r Plasma [facility] Beta-hemolytic Streptococcus culture [facility] Bilirubin, total measurement [facility] BUN/Creatinine ratio [facility] Calcium [Mass/volume ] in Serum or Plasma [facility] Carbon dioxide, tota l [Moles/volume] in Central venous blood [facility] CBC W Auto Different ial panel - Blood [facility] Creatinine [Mass/vol ume] in Serum or Plasma [facility] Erythrocyte mean corpuscular volume determination [facility] Erythrocyte mean corpuscular volume determination [facility] anatomy study [facility] Glucose [Mass/volume ] in Serum or Plasma [facility] Hematocrit [Volume Fraction] of Blood [facility] Hematocrit [Volume Fraction] of Blood [facility] Hemoglobin [Mass/vol ume] in Blood [facility] Hemoglobin [Mass/vol ume] in Blood [facility] Leukocytes [#/volume ] in Blood [facility] Leukocytes [#/volume ] in Blood [facility] Mean corpuscular hem oglobin concentration determination [facility] Mean corpuscular hem oglobin concentration determination [facility] Mean corpuscular hem oglobin determination [facility] Mean corpuscular hem oglobin determination [facility] Measurement of gluco se 2 hours after glucose challenge for glucose tolerance test [facility] Measurement of renal function [facility] Neutrophil count [facility] Neutrophil count [facility] Neutrophil percent differential count [facility] Neutrophil percent differential count [facility] Platelets [#/volume] in Blood [facility] Platelets [#/volume] in Blood [facility] Potassium measurement [facility] Protein/Creatinine [ Ratio] in Urine [facility] Red blood cell count [facility] Red blood cell count [facility] Red cell distributio n width determination [facility] Red cell distributio n width determination [facility] Serologic test for syphilis [facility] Serum chloride measurement [facility] Sodium measurement [facility] Total protein measurement [facility] Urea nitrogen [Mass/ volume] in Serum or Plasma [facility] Urine culture [facility] Immunizations Immunization Date Immunization Notes Care Provider Fa [facility] 10-27-2024 tetanus toxoid, redu keatn diphtheria toxoid, and acellular pertussis vaccine, adsorbed Dr. Donald Waller MD Work Phone: [facility] 11-29-2016 meningococcal B vacc ine, fully recombinant Dr. Donald Waller MD Work Phone: [facility] 11-29-2015 meningococcal B vacc ine, fully recombinant Dr. Donald Waller MD Work Phone: [facility] 11-29-2015 meningococcal polysaccharide (groups A, C, Y and W-135) diphtheria toxoid conjugate vaccine (MCV4P) Dr. Donald Waller MD Work Phone: [facility] 11-02-2010 meningococcal polysaccharide (groups A, C, Y and W-135) diphtheria toxoid conjugate vaccine (MCV4P) Dr. Donald Waller MD Work Phone: [facility] 08-05-[address] Donald Waller MD Work Phone: [facility] 12-29-2003 measles, mumps and rubella virus vaccine Dr. Donald Waller MD Work Phone: [facility] 10-01-[address] Donald Waller MD Work Phone: [facility] 06-27-2000 measles, mumps and rubella virus vaccine Dr. Donald Waller MD Work Phone: [facility] Payers Date Payer Category Payer Self-pay 2024 Unknown [id number] 2017 Unknown [id number] 2016 Unknown Unknown [id number] 2.16.8 [id number] Unknown [id number] 2.16.8 40.1.028370.3.579.2.462 Unknown [id number] .16.8 40.1.552121.3.579.2.462 Unknown [id number] 2.16.8 40.1.443096.3.579.2.462 Unknown [id number] 2.16.8 40.1.575105.3.579.2.462 Unknown [id number] 2.16.8 40.1.389588.3.579.2.462 Unknown [id number] 2.16.8 40.1.364934.3.579.2.462 Unknown [id number] 2.16.8 40.1.328612.3.579.2.462 Unknown [id number] 2.16.8 40.1.599434.3.579.2.462 Unknown [id number] 2.16.8 40.1.108510.3.579.2.462 Unknown [id number] 2.16.8 40.1.436339.3.579.2.462 Unknown [id number] 2.16.8 40.1.090086.3.579.2.462 Unknown [id number] 2.16.8 40.1.850354.3.579.2.462 Unknown [id number] 2.16.8 40.1.361590.3.579.2.462 Unknown [id number] 2.16.8 40.1.831945.3.579.2.462 Unknown [id number] 2.16.8 40.1.765596.3.579.2.462 Unknown [id number] 2.16.8 40.1.713311.3.579.2.462 Unknown [id number] 2.16.8 40.1.469583.3.579.2.462 Unknown [id number] 2.16.8 40.1.657787.3.579.2.462 Unknown [id number] 2.16.8 40.1.646495.3.579.2.462 Unknown [id number] 2.16.8 40.1.982675.3.579.2.462 Unknown [id number] 2.16.8 40.1.902791.3.579.2.462 Unknown [id number] 2.16.8 40.1.310634.3.579.2.462 Unknown [id number] 2.16.8 40.1.608042.3.579.2.462 Unknown [id number] 2.16.8 40.1.269490.3.579.2.462 Unknown [id number] 2.16.8 40.1.935672.3.579.2.462 Unknown [id number] 2.16.8 40.1.811583.3.579.2.462 Social History Date Type Detail Facility Start: 05-26-2024 Tobacco smoking stat us DCIS Smokes tobacco daily (finding) [facility] Start: 07-17-2024 End: 08-06-2024 Sex Female (finding) [facility] Start: 2000 Sex Assigned At Female [facility] Clinical Notes 04-15-2024 to 12-30-2024 Note Date & Type Note Facility 12-30-2024 Progress note [facility] 12-30-2024 Progress note Note Date/Time December 30, 2024 3:46pm [facility] [address], [address] [place] [address] OFFICE VISIT Date of Service: 12/30/24 MR#: [id number] Acct: [id number] Name: LUCIANO KENDALL Rep #: [id number] : 2000 Provider: Dr. Naila Chavez DO Age/Sex: 24/F [place] [facility] [place]: Signed Intake Vital Signs 11/09/24 15:36 12/22/24 12:59 12/30/24 15:08 12/30/24 15:11 Height 5 ft 8 in 5 ft 8 in 5 ft 8 in 5 ft 8 in Weight: 296 lb 4 oz BMI 45.0 BP 119/82 H Intake Visit Reasons: 39 wk ob [employer]ite Control Technician Required: No Is patient in pain?: No [...] : No PFSH PFSH Medical History Congenital faajlo-womjtdv-mbywn reflux Gallstones UTI (urinary tract infection) Asthma Surgical History Hx of cholecystectomy Hx of tonsillectomy Family History Father Diabetes Type 1 Aunt Thyroid disorder Maternal Mother Thyroid disorder enlarged Grandmother Breast cancer Paternal Social History adopted: No household members: significant other current occupational status: employed 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 occupational exposures/hazards: No [...] 1-2 times per week duration: 60-90 minutes/day sid/congregational: None seatbelt use: always do you feel [...] and Symptoms of Preeclampsia, Feeding No , [employer] Family Medical Leave or Disability Forms Results POC Urinalysis 2 Dip (Clinic) Office Urine Glucose Negative Last Edit by Monica Mabry on 12/30/24 15: 37 Office Urine Protein Negative Last Edit by Monica Mabry on 12/30/24 15: 37 Coding Level of Care Code OB Routine Diagnoses Kidney disease N28.9 Elevated serum creatinine R79.89 Congenital hhwkza-mahycql-xymbc reflux Q62.7 Current every day nicotine vaping [...] P/C ratio: 7/1: not done (3) Congenital ccbgfx-wjwbsaf-yiefi reflux: Status: Acute Comment: check urine func [...] Red DO> Date _ Susan Chavez DO [facility] Signature: Date (if applicable) CC: ~ [facility] Work Phone: 1(206) 656-171608-26-2025 Progress [facility] [address] [place] [address], [address] [place] [id number] OFFICE VISIT Date of Service: 12/22/24 MR#: [id number] Acct: [id number] Name: LUCIANO KENDALL Rep #: [id number] : 2000 Provider: Dr. 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 Is patient in pain?: No [...] : No PFSH PFSH Medical History Congenital giwclt-gfknpkg-szzux reflux Gallstones UTI (urinary tract infection) Asthma Surgical History Hx of cholecystectomy Hx of tonsillectomy Family History Father Diabetes Type 1 Aunt Thyroid disorder Maternal Mother Thyroid disorder enlarged Grandmother Breast cancer Paternal Social History adopted: No household members: significant other current occupational status: employed 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 occupational 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/hazards: No [...] 1-2 times per week duration: 60-90 minutes/day sid/congregational: None seatbelt use: always do you feel [...] disease N28.9 Elevated serum creatinine R79.89 Congenital jhjdkr-ctdnfyc-umpnf reflux Q62.7 Current every day nicotine vaping [...] Q3mo:CMP and urine P/C ratio:7/1: (3) Congenital soaitt-jxslgeb-bofyx reflux: Status: Acute Comment: check urine func [...] nate PITTMAN> Date _ Nita Mcintosh MD [facility] Signature: Date (if applicable) CC: ~ [facility] [id number] [facility] [address] [place] [address], [address] [place] [address] OFFICE VISIT Date of Service: 12/17/24 MR#: [id number] Acct: [id number] Name: LUCIANO KENDALL Rep #: [id number] : 2000 Provider: Dr. Marcio Mcintosh MD Age/Sex: 24/F Location: [facility] Status: Signed Intake Vital Signs 11/09/24 15:36 12/08/24 09:37 12/17/24 15:48 12/17/24 15:50 Height 5 ft 8 in 5 ft 8 in 5 ft 8 in 5 ft 8 in Weight: 291 lb 2 oz BMI 44.2 BP 138/87 H Intake Visit Reasons: 37 wk ob Termite Control Technician Required: No Is patient in pain?: No [...] : No PFSH PFSH Medical History Congenital tihzru-ygenzuz-ocwvi reflux Gallstones UTI (urinary tract infection) Asthma Surgical History Hx of cholecystectomy Hx of tonsillectomy Family History Father Diabetes Type 1 Aunt Thyroid disorder Maternal Mother Thyroid disorder enlarged Grandmother Breast cancer Paternal Social History adopted: No household members: significant other current occupational status: employed 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 occupational exposures/hazards: No [...] 1-2 times per week duration: 60-90 minutes/day sid/congregational: None seatbelt use: always do you feel [...] disease N28.9 Elevated serum creatinine R79.89 Congenital kbrjgg-bwezalc-hnexz reflux Q62.7 Current every day nicotine vaping [...] Q3mo:CMP and urine P/C ratio:7/1: (3) Congenital ejahpf-kpivhwc-gtksu reflux: Status: Acute Comment: check urine func [...] of normal first , third trimester 12/17/24 6413 nate PITTMAN> Date _ Nita Mcintosh MD [employer] Signature: Date (if applicable) CC: ~ [facility]08-21-2025 Progress note Author Nita Mcintosh [facility] Note Date/Time December 17, 2024 4: 37pm [facility] [address] [place] [address], [address] [place] [address] OFFICE VISIT Date of Service: 12/17/24 MR#: [id number] Acct: [id number] Name: LUCIANO KENDALL Rep #: [id number] : 2000 Provider: Dr. Marcio Mcintosh MD Age/Sex: 24/F [place] [facility] [place]: Signed Intake Vital Signs 11/09/24 15:36 12/08/24 09:37 12/17/24 15:48 12/17/24 15:50 Height 5 ft 8 in 5 ft 8 in 5 ft 8 in 5 ft 8 in Weight: 291 lb 2 oz BMI 44.2 BP 138/87 H Intake Visit Reasons: 37 wk ob Termite Control Technician Required: No Is patient in pain?: No [...] : No PFSH PFSH Medical History Congenital pxjqyo-wsenwco-gvsrj reflux Gallstones UTI (urinary tract infection) Asthma Surgical History Hx of cholecystectomy Hx of tonsillectomy Family History Father Diabetes Type 1 Aunt Thyroid disorder Maternal Mother Thyroid disorder enlarged Grandmother Breast cancer Paternal Social History adopted: No household members: significant other current occupational status: employed 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7 Current every day nicotine vaping [...] and urine P/C ratio: 7/1: (3) Congenital obcmjt-wflilwq-gdbyl reflux: Status: Acute Comment: check urine func [...] of normal first , third trimester 12/17/24 5591 <Electronically signed by Nita sullivan MD> Date _ Nita Mcintosh MD [facility] Signature: Date (if applicable) CC: ~ [facility] Work Phone: 1(653) 379-756708-12-2025 [facility] [address] [place] [address], [address] [place] [address] OFFICE VISIT Date of Service: 12/08/24 MR#: [id number] Acct: [id number] Name: LUCIANO KENDALL Rep #: [id number] : 2000 Provider: ALEXANDRA Solomon Age/Sex: 24/F [place] [facility] [place]: Signed Intake Vital Signs 10/27/24 13:28 11/27/24 14:23 12/08/24 09:37 Height 5 ft 8 in 5 ft 8 in 5 ft 8 in Weight: 286 lb 8 oz BMI 43.5 BP 130/82 H Intake Visit Reasons: 36wk ob 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 Is patient in pain?: No [...] year?: No PFSH PFSH Medical History Congenital ltwokx-fuqmtot-kvflx reflux Gallstones UTI (urinary tract infection) Asthma Surgical History Hx of cholecystectomy Hx of tonsillectomy Family History Father Diabetes Type 1 Aunt Thyroid disorder Maternal Mother Thyroid disorder enlarged Grandmother Breast cancer Paternal Social History adopted: No household members: significant other current occupational status: employed 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 occupational exposures/hazards: No [...] 1-2 times per week duration: 60-90 minutes/day sid/congregational: None seatbelt use: always do you feel [...] disease N28.9 Elevated serum creatinine R79.89 Congenital pebpnn-gessjbr-cfldd reflux Q62.7 Current every day nicotine vaping [...] Q3mo:CMP and urine P/C ratio:7/1: (3) Congenital jbvfre-donrjnx-ikbbm reflux: Status: Acute Comment: check urine func [...] [place] Signature: Date (if applicable) CC: ~ [facility]08-01-2025 [facility] [address] [place] [address], [address] [place] [address] OFFICE VISIT Date of Service: 11/27/24 MR#: [id number] Acct: [id number] Name: LUCIANO KENDALL Rep #: [id number] : 2000 Provider: Dr. Marcio Mcintosh MD Age/Sex: 24/F [place] [facility] [place] Status: Signed Intake Vital Signs 10/27/24 13:28 11/09/24 15:36 11/19/24 08:40 11/27/24 14:23 Height 5 ft 8 in 5 ft 8 in 5 ft 8 in 5 ft 8 in Weight: 282 lb 3 oz BMI 42.9 BP 138/85 H Intake Visit Reasons: 34wk ob Termite Control Technician Required: No Is patient in pain?: No [...] : No PFSH PFSH Medical History Congenital xlkyxc-evastwh-qydjg reflux Gallstones UTI (urinary tract infection) Asthma Surgical History Hx of cholecystectomy Hx of tonsillectomy Family History Father Diabetes Type 1 Aunt Thyroid disorder Maternal Mother Thyroid disorder enlarged Grandmother Breast cancer Paternal Social History adopted: No household members: significant other current occupational status: employed 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 occupational exposures/hazards: No [...] 1-2 times per week duration: 60-90 minutes/day sid/congregational: None seatbelt use: always do you feel [...] disease N28.9 Elevated serum creatinine R79.89 Congenital frncqq-lbnllsm-ipyfl reflux Q62.7 Current every day nicotine vaping [...] Q3mo:CMP and urine P/C ratio:7/1: (3) Congenital mhmylq-tbdxyap-fmdgo reflux: Status: Acute Comment: check urine func [...] Cosigner Signature: Date (if applicable) CC: ~ [facility]08-01-2025 Progress note Author Nita Mcintosh [facility] Note Date/Time November 27, 2024 2:4 8pm [facility] [address] [place] [address], [address] [place] [address] OFFICE VISIT Date of Service: 11/27/24 MR#: [id number] Acct: [id number] Name: LUCIANO KENDALL Rep #: [id number] : 2000 Provider: Dr. Marcio Mcintosh MD Age/Sex: 24/F [place] [facility] Status: Signed Intake Vital Signs 10/27/24 13:28 11/09/24 15:36 11/19/24 08:40 11/27/24 14:23 Height 5 ft 8 in 5 ft 8 in 5 ft 8 in 5 ft 8 in Weight: 282 lb 3 oz BMI 42.9 BP 138/85 H Intake Visit Reasons: 34wk ob Termite Control Technician Required: No Is patient in pain?: No [...] : No PFSH PFSH Medical History Congenital kbcjyb-yohdexz-rlznx reflux Gallstones UTI (urinary tract infection) Asthma Surgical History Hx of cholecystectomy Hx of tonsillectomy Family History Father Diabetes Type 1 Aunt Thyroid disorder Maternal Mother Thyroid disorder enlarged Grandmother Breast cancer Paternal Social History adopted: No household members: significant other current occupational status: employed 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 Signature: Date (if applicable) CC: ~ [facility] Work Phone: 1(363) 459-352507-14-2025 [facility] [address] [place] [address], [address] [place] [address] OFFICE VISIT Date of Service: 11/09/24 MR#: [id number] Acct: [id number] Name: LUCIANO KENDALL Rep #: [id number] : 2000 Provider: Dr. Marcio Mcintosh MD Age/Sex: 24/F [place] [facility]: Signed Intake Vital Signs 09/01/24 15:04 10/27/24 13:28 11/09/24 15:36 Height 5 ft 8 in 5 ft 8 in 5 ft 8 in Weight: 273 lb 4 oz BMI 41.5 BP 133/84 H Intake Visit Reasons: 32wk ob Termite Control Technician Required: No Is patient in pain?: No [...] : No PFSH PFSH Medical History Congenital hlclbb-dsuowwo-lpdfm reflux Gallstones UTI (urinary tract infection) Asthma Surgical History Hx of cholecystectomy Hx of tonsillectomy Family History Father Diabetes Type 1 Aunt Thyroid disorder Maternal Mother Thyroid disorder enlarged Grandmother Breast cancer Paternal Social History adopted: No household members: significant other current occupational status: employed 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 occupational exposures/hazards: No [...] 1-2 times per week duration: 60-90 minutes/day sid/congregational: None seatbelt use: always do you feel [...] disease N28.9 Elevated serum creatinine R79.89 Congenital abbuzy-rtnijdk-rwzfd reflux Q62.7 Current every day nicotine vaping [...] Q3mo:CMP and urine P/C ratio:7/1: (3) Congenital iwbmhi-mnfeudn-oqnnv reflux: Status: Acute Comment: check urine func [...] Cosigner Signature: Date (if applicable) CC: ~ [facility]07-14-2025 Progress note Author Nita Mcintosh [facility] Note Date/Time November 09, 2024 3:54 pm [facility] [address], [address] [place] [address] OFFICE VISIT Date of Service: 11/09/24 MR#: [id number] Acct: [id number] Name: LUCIANO KENDALL Rep #: [id number] : 2000 Provider: Dr. Marcio Mcintosh MD Age/Sex: 24/F [place] [facility] Status: Signed Intake Vital Signs 09/01/24 15:04 10/27/24 13:28 11/09/24 15:36 Height 5 ft 8 in 5 ft 8 in 5 ft 8 in Weight: 273 lb 4 oz BMI 41.5 BP 133/84 H Intake Visit Reasons: 32wk ob Termite Control Technician Required: No Is patient in pain?: No [...] : No PFSH PFSH Medical History Congenital sbrwzp-tgqwrsn-rwyhl reflux Gallstones UTI (urinary tract infection) Asthma Surgical History Hx of cholecystectomy Hx of tonsillectomy Family History Father Diabetes Type 1 Aunt Thyroid disorder Maternal Mother Thyroid disorder enlarged Grandmother Breast cancer Paternal Social History adopted: No household members: significant other current occupational status: employed 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 occupational exposures/hazards: No [...] 1-2 times per week duration: 60-90 minutes/day sid/congregational: None seatbelt use: always do you feel [...] Symptoms of Preeclampsia, Infant Feeding No , [employer] Education and Family Medical Leave or Disability Forms Results POC Urinalysis 2 Dip (Clinic) Office Urine Glucose Negative Last Edit by Jennifer Rae on 11/09/24 15:44 Office Urine Protein Negative Last Edit by Jennifer Rae on 11/09/24 15:44 Coding Level of Care Code OB Routine Diagnoses Kidney disease N28.9 Elevated serum creatinine R79.89 Congenital ztevyk-rwcqgjb-fjtio reflux Q62.7 Current every day nicotine vaping [...] and urine P/C ratio: 7/1: (3) Congenital mytywd-pafekvy-oeltp reflux: Status: Acute Comment: check urine func [...] POC Urinalysis 2 Dip (Clinic) Today 11/09/24 5076 <Electronically signed by Nita sullivan MD> Date _ Nita Mcinotsh MD Cosigner Signature: Date (if applicable) CC: ~ [facility] Work Phone: 1(229) 597-853206-02-2025 Evaluation note* Diagnosis Onset Date Resolution Status Admit Date Anxiety acute September 28, 2024 2:50pm Congenital brkbuj-ajkgjnu-yqgtz reflux acute September 28, 2024 2:50pm Current [...] Anxiety acute October 27, 2024 1:38pm Congenital qsosgu-chzgoxi-rbsrl reflux acute October 27, 2024 1:38pm Current [...] 1:38pm Anxiety acute November 09 3:21pm Congenital kxmjzn-xulnlim-aeuau reflux acute November 09, 2024 3:21pm Current [...] 3:21pm Anxiety acute November 19 8:30am Congenital naypdx-hkqdicq-svqqb reflux acute November 19, 2024 8:30am Current [...] 8:30am Anxiety acute November 27 2:18pm Congenital dvcktb-mwsuchz-gjiie reflux acute 2024 2:18pm Current every day nicotine vaping acute November 27, 2024 2:18pm Elevated serum creatinine acute November 27, 2024 2:18pm FH: hemophilia acute November 2:18pm Kidney disease acute November 2:18pm Obesity affecting acute November 27, 2024 2:18pm acute November 27 2:18pm Supervision of normal first acute November 27, 2024 2:18pm Anxiety acute December 08, 025 9:33am Congenital yuqktw-xjtyioc-qnuyv reflux acute 2024 9:33am Current every day nicotine vaping acute December 08 9:33am Elevated serum creatinine acute December 08, 2024 9:33am FH: hemophilia acute November 9:33am Kidney disease acute November 9:33am Obesity affecting acute December 08, 2024 9:33am acute December 08, 2 025 9:33am Supervision of normal first acute December 08 9:33am Anxiety acute December 17, 2 025 3:44pm Congenital kpbbax-yqifnsx-qswvs reflux acute 2024 3:44pm Current every day nicotine vaping acute December 17 3:44pm Elevated serum creatinine acute December 17, 2024 3:44pm FH: hemophilia acute November 3:44pm Kidney disease acute November 3:44pm Obesity affecting acute December 17, 2024 3:44pm acute December 17, 2 025 3:44pm Supervision of normal first acute December 17 3:44pm Anxiety acute December 22, 2 025 12:54pm Congenital uimoup-hexurwv-zqcml reflux acute 2024 12:54pm Current every day nicotine vaping acute December 22 12:54pm Elevated serum creatinine acute December 22, 2024 12:54pm FH: hemophilia acute November 12:54pm Kidney disease acute November 12:54pm Obesity affecting acute December 22, 2024 12:54pm acute December 22, 2 025 12:54pm Supervision of normal first acute December 22 12:54pm Anxiety acute December 30, 2024 2:50pm Congenital zkvlsm-fphecly-zhxcc reflux acute Dec 2:50pm Current every day [...] Anxiety acute January 04, 2025 3:05pm Congenital dbtgmu-icfntgf-hsxsh reflux acute Dec 3:05pm Current every day nicotine vaping acute January 04, 2 025 3:05pm Elevated serum creatinine acute January 04, 2025 3:05pm FH: hemophilia acute January 04, 2025 3:05pm Kidney disease acute January 04, 2025 3:05pm Obesity affecting acute January 04, 2025 3:05pm acute January 04, 2025 3:05pm Supervision of normal first acute January 04, 2 025 3:05pm [facility] Work Phone: 1(181) 111-515005-06-2025 Evaluation note* Diagnosis Onset Date Resolution Status Admit Date Anxiety acute September 01, 2024 2:50pm Congenital bowdlv-lywsbtz-tayjl reflux acute September 01, 2024 2:50pm Current every day nicotine vaping acute September 01, 2024 2: 50pm Elevated serum creatinine acute September 01, 2024 2:50pm FH: hemophilia acute September 01, 2 025 2:50pm Obesity affecting acute September 01, 2024 2:50pm acute September 01, 2024 2:50pm Supervision of normal first acute September 01, 2024 2: 50pm Anxiety acute September 28, 2024 2:50pm Congenital xyjnrf-uzlekqs-bfzeg reflux acute September 28, 2024 2:50pm Current [...] Anxiety acute October 27, 2024 1:38pm Congenital aohkyh-qpdwpkz-oyitn reflux acute October 27, 2024 1:38pm Current [...] 1:38pm Anxiety acute November 09 3:21pm Congenital dgvbwo-mvzuijy-nency reflux acute November 09, 2024 3:21pm Current [...] 3:21pm Anxiety acute November 19 8:30am Congenital wvgrfd-qxffyov-wzmrl reflux acute November 19, 2024 8:30am Current [...] 8:30am Anxiety acute November 27 2:18pm Congenital izblly-mlveioq-iwptn reflux acute 2024 2:18pm Current every day nicotine vaping acute November 27, 2024 2:18pm Elevated serum creatinine acute November 27, 2024 2:18pm FH: hemophilia acute November 2:18pm Kidney disease acute November 2:18pm Obesity affecting acute November 27, 2024 2:18pm acute November 27 2:18pm Supervision of normal first acute November 27, 2024 2:18pm Anxiety acute December 08, 2 025 9:33am Congenital cjvlgp-idjbwnn-eiund reflux acute 2024 9:33am Current every day nicotine vaping acute December 08 9:33am Elevated serum creatinine acute December 08, 2024 9:33am FH: hemophilia acute November 9:33am Kidney disease acute November 9:33am Obesity affecting acute December 08, 2024 9:33am acute December 08, 2 025 9:33am Supervision of normal first acute December 08 9:33am [facility] Work Phone: [phone]) 177-221605-06-2025 Evaluation note* Diagnosis Onset Date Resolution Status Admit Date Anxiety acute September 01, 2024 2:50pm Congenital kdivwe-yqgfmed-skber reflux acute September 01, 2024 2:50pm Current every day nicotine vaping acute September 01, 2024 2: 50pm Elevated serum creatinine acute September 01, 2024 2:50pm FH: hemophilia acute September 01, 2 025 2:50pm Obesity affecting acute September 01, 2024 2:50pm acute September 01, 2024 2:50pm Supervision of normal first acute September 01, 2024 2: 50pm Anxiety acute September 28, 2024 2:50pm Congenital ydnely-cadcwgc-qgjsw reflux acute September 28, 2024 2:50pm Current [...] Anxiety acute October 27, 2024 1:38pm Congenital ayjdsb-laayfry-fcgqe reflux acute October 27, 2024 1:38pm Current [...] 1:38pm Anxiety acute November 09 3:21pm Congenital tlpatk-vpykwoy-aheel reflux acute November 09, 2024 3:21pm Current [...] 3:21pm Anxiety acute November 19 8:30am Congenital dbiofy-kxzktix-zatvt reflux acute November 19, 2024 8:30am Current [...] 8:30am Anxiety acute November 27 2:18pm Congenital jdvyew-wkrhdwt-lbmxc reflux acute 2024 2:18pm Current every day nicotine vaping acute November 27, 2024 2:18pm Elevated serum creatinine acute November 27, 2024 2:18pm FH: hemophilia acute November 2:18pm Kidney disease acute November 2:18pm Obesity affecting acute November 27, 2024 2:18pm acute November 27 2:18pm Supervision of normal first acute November 27, 2024 2:18pm Anxiety acute December 08, 2 025 9:33am Congenital nequvu-ezwbiiu-rughn reflux acute 2024 9:33am Current every day nicotine vaping acute December 08 9:33am Elevated serum creatinine acute December 08, 2024 9:33am FH: hemophilia acute November 9:33am Kidney disease acute November 9:33am Obesity affecting acute December 08, 2024 9:33am acute December 08, 2 025 9:33am Supervision of normal first acute December 08 9:33am Anxiety acute December 17, 2 025 3:44pm Congenital dhjlrx-wwhcdkg-ejzqk reflux acute 2024 3:44pm Current every day nicotine vaping acute December 17 3:44pm Elevated serum creatinine acute December 17, 2024 3:44pm FH: hemophilia acute November 3:44pm Kidney disease acute November 3:44pm Obesity affecting acute December 17, 2024 3:44pm acute December 17, 2 025 3:44pm Supervision of normal first acute December 17 3:44pm [facility] Work Phone: 1(321) 658-863805-06-2025 Evaluation note* Diagnosis Onset Date Resolution Status Admit Date Anxiety acute September 01, 2024 2:50pm Congenital jdrjhy-oajtpvp-lfqzu reflux acute September 01, 2024 2:50pm Current every day nicotine vaping acute September 01, 2024 2: 50pm Elevated serum creatinine acute September 01, 2024 2:50pm FH: hemophilia acute September 01, 2 025 2:50pm Obesity affecting acute September 01, 2024 2:50pm acute September 01, 2024 2:50pm Supervision of normal first acute September 01, 2024 2: 50pm Anxiety acute September 28, 2024 2:50pm Congenital obgbvv-quwqnlr-vcbza reflux acute September 28, 2024 2:50pm Current [...] Anxiety acute October 27, 2024 1:38pm Congenital idvcwr-bxviuit-rclrp reflux acute October 27, 2024 1:38pm Current [...] 1:38pm Anxiety acute November 09 3:21pm Congenital twyyqs-vcwianm-coffl reflux acute November 09, 2024 3:21pm Current [...] 3:21pm Anxiety acute November 19 8:30am Congenital awpune-frucalh-pkvwo reflux acute November 19, 2024 8:30am Current [...] 8:30am Anxiety acute November 27 2:18pm Congenital ztmlbn-qzdgnxg-gnjer reflux acute 2024 2:18pm Current every day nicotine vaping acute November 27, 2024 2:18pm Elevated serum creatinine acute November 27, 2024 2:18pm FH: hemophilia acute November 2:18pm Kidney disease acute November 2:18pm Obesity affecting acute November 27, 2024 2:18pm acute November 27 2:18pm Supervision of normal first acute November 27, 2024 2:18pm Anxiety acute December 08, 025 9:33am Congenital lkxsvs-jozkkbm-uqvwx reflux acute 2024 9:33am Current every day nicotine vaping acute December 08 9:33am Elevated serum creatinine acute December 08, 2024 9:33am FH: hemophilia acute November 9:33am Kidney disease acute November 9:33am Obesity affecting acute December 08, 2024 9:33am acute December 08, 2 025 9:33am Supervision of normal first acute December 08 9:33am Anxiety acute December 17, 2 025 3:44pm Congenital grrxlb-waxnyxk-hqmqf reflux acute 2024 3:44pm Current every day nicotine vaping acute December 17 3:44pm Elevated serum creatinine acute December 17, 2024 3:44pm FH: hemophilia acute November 3:44pm Kidney disease acute November 3:44pm Obesity affecting acute December 17, 2024 3:44pm acute December 17, 2 025 3:44pm Supervision of normal first acute December 17 3:44pm Anxiety acute December 22, 025 12:54pm Congenital ifmeou-znpgkkh-uzdtc reflux acute 2024 12:54pm Current every day nicotine vaping acute December 22 12:54pm Elevated serum creatinine acute December 22, 2024 12:54pm FH: hemophilia acute November 12:54pm Kidney disease acute November 12:54pm Obesity affecting acute December 22, 2024 12:54pm acute December 22, 025 12:54pm Supervision of normal first acute December 22 12:54pm [facility] Work Phone: 1(730) 602-329605-06-2025 Evaluation note* Diagnosis Onset Date Resolution Status Admit Date Anxiety acute September 01, 2024 2:50pm Congenital oijsgj-etqsvgd-cgyqo reflux acute September 01, 2024 2:50pm Current every day nicotine vaping acute September 01, 2024 2: 50pm Elevated serum creatinine acute September 01, 2024 2:50pm FH: hemophilia acute September 01, 2 025 2:50pm Obesity affecting acute September 01, 2024 2:50pm acute September 01, 2024 2:50pm Supervision of normal first acute September 01, 2024 2: 50pm Anxiety acute September 28, 2024 2:50pm Congenital okpkyq-mfjgwol-dxzlx reflux acute September 28, 2024 2:50pm Current [...] Anxiety acute October 27, 2024 1:38pm Congenital hptnqz-drjloci-pnwgi reflux acute October 27, 2024 1:38pm Current [...] 1:38pm Anxiety acute November 09 3:21pm Congenital mhwpvr-foejjsy-tndaq reflux acute November 09, 2024 3:21pm Current [...] 3:21pm Anxiety acute November 19 8:30am Congenital cbwdkd-lenttsv-kfixq reflux acute November 19, 2024 8:30am Current [...] 8:30am Anxiety acute November 27 2:18pm Congenital njlnhf-lndcqdy-tkpds reflux acute 2024 2:18pm Current every day nicotine vaping acute November 27, 2024 2:18pm Elevated serum creatinine acute November 27, 2024 2:18pm FH: hemophilia acute November 2:18pm Kidney disease acute November 2:18pm Obesity affecting acute November 27, 2024 2:18pm acute November 27 2:18pm Supervision of normal first acute November 27, 2024 2:18pm Anxiety acute December 08, 2 025 9:33am Congenital aoecep-wmqripu-wspvc reflux acute 2024 9:33am Current every day nicotine vaping acute December 08 9:33am Elevated serum creatinine acute December 08, 2024 9:33am FH: hemophilia acute November 9:33am Kidney disease acute November 9:33am Obesity affecting acute December 08, 2024 9:33am acute December 08, 025 9:33am Supervision of normal first acute December 08 9:33am Anxiety acute December 17, 2 025 3:44pm Congenital cejwvm-aswzjrq-yvvoc reflux acute 2024 3:44pm Current every day nicotine vaping acute December 17 3:44pm Elevated serum creatinine acute December 17, 2024 3:44pm FH: hemophilia acute November 3:44pm Kidney disease acute November 3:44pm Obesity affecting acute December 17, 2024 3:44pm acute December 17, 2 025 3:44pm Supervision of normal first acute December 17 3:44pm Anxiety acute December 22, 2 025 12:54pm Congenital zxeuyf-hewzzys-edbng reflux acute 2024 12:54pm Current every day nicotine vaping acute December 22 12:54pm Elevated serum creatinine acute December 22, 2024 12:54pm FH: hemophilia acute November 12:54pm Kidney disease acute November 12:54pm Obesity affecting acute December 22, 2024 12:54pm acute December 22, 2 025 12:54pm Supervision of normal first acute December 22 12:54pm Anxiety acute December 30, 2024 2:50pm Congenital anlthu-jcbpgxu-vzwtf reflux acute Sept 2024 2:50pm Current every day nicotine vaping acute December 30, 2 025 2:50pm Elevated serum creatinine acute December 30, 2024 2:50pm FH: hemophilia acute December 30, 2024 2:50pm Kidney disease acute December 30, 2024 2:50pm Obesity affecting acute December 30, 2024 2:50pm acute December 30, 2024 2:50pm Supervision of normal first acute December 30, 025 2:50pm [facility] Work Phone: 1(778) 801-812404-08-2025 Evaluation note* Diagnosis Onset Date Resolution Status Admit Date Anxiety acute August 04 10:37am Congenital jbqpvl-ffqwqfn-fmnlg reflux acute Apr2024 10:37am Current every day nicotine vaping acute August 04, 2024 10:37am Elevated serum creatinine acute August 04, 2024 10:37am FH: hemophilia acute August 04, 2024 10:37am Obesity affecting acute August 04, 2024 10:37am acute August 04 10:37am Supervision of normal first acute August 04, 2024 10:37am Recurrent UTI resolved August 04, 2024 10:37am Anxiety acute September 01, 2024 2:50pm Congenital beyzds-nfqdrpr-razit reflux acute September 01, 2024 2:50pm Current every day nicotine vaping acute September 01, 2024 2: 50pm Elevated serum creatinine acute September 01, 2024 2:50pm FH: hemophilia acute September 01, 2 025 2:50pm Obesity affecting acute September 01, 2024 2:50pm acute September 01, 2024 2:50pm Supervision of normal first acute September 01, 2024 2: 50pm Anxiety acute September 28, 2024 2:50pm Congenital nkbcom-gfhxazs-ewjbt reflux acute September 28, 2024 2:50pm Current [...] Anxiety acute October 27, 2024 1:38pm Congenital cuugsd-tazpzws-fifus reflux acute October 27, 2024 1:38pm Current [...] 1:38pm Anxiety acute November 09 3:21pm Congenital gsrwyl-ydqxvgp-mfean reflux acute November 09, 2024 3:21pm Current every day nicotine vaping acute November 09, 2024 3:21pm Elevated serum creatinine acute November 09, 2024 3:21pm FH: hemophilia acute November 09, 2024 3:21pm Kidney disease acute November 09, 2024 3:21pm Obesity affecting acute November 09, 2024 3:21pm acute November 09 3:21pm Supervision of normal first acute November 09, 2024 3:21pm [facility] Work Phone: 1(406) 774-825204-08-2025 Evaluation note* Diagnosis Onset Date Resolution Status Admit Date Anxiety acute August 04 10:37am Congenital gmnrib-qqcofso-axwxc reflux acute Apr2024 10:37am Current every day nicotine vaping acute August 04, 2024 10:37am Elevated serum creatinine acute August 04, 2024 10:37am FH: hemophilia acute August 04, 2024 10:37am Obesity affecting acute August 04, 2024 10:37am acute August 04 10:37am Supervision of normal first acute August 04, 2024 10:37am Recurrent UTI resolved August 04, 2024 10:37am Anxiety acute September 01, 2024 2:50pm Congenital ojlfsw-acbxcnh-bacug reflux acute September 01, 2024 2:50pm Current every day nicotine vaping acute September 01, 2024 2: 50pm Elevated serum creatinine acute September 01, 2024 2:50pm FH: hemophilia acute September 01, 2 025 2:50pm Obesity affecting acute September 01, 2024 2:50pm acute September 01, 2024 2:50pm Supervision of normal first acute September 01, 2024 2: 50pm Anxiety acute September 28, 2024 2:50pm Congenital mzsieb-isdunrt-chkrv reflux acute September 28, 2024 2:50pm Current [...] Anxiety acute October 27, 2024 1:38pm Congenital yxlnpn-xchyict-xevna reflux acute October 27, 2024 1:38pm Current [...] 1:38pm Anxiety acute November 09 3:21pm Congenital mhwdgc-chngnhj-aihyk reflux acute November 09, 2024 3:21pm Current [...] 3:21pm Anxiety acute November 19 8:30am Congenital njrjqv-zsrpalu-tbbip reflux acute November 19, 2024 8:30am Current every day nicotine vaping acute November 19, 2024 8:30am Elevated serum creatinine acute November 19, 2024 8:30am FH: hemophilia acute November 19, 2024 8:30am Kidney disease acute November 19, 2024 8:30am Obesity affecting acute November 19, 2024 8:30am acute November 19 8:30am Supervision of normal first acute November 19, 2024 8:30am [facility] Work Phone: 1(306) 996-472204-08-2025 Evaluation note* Diagnosis Onset Date Resolution Status Admit Date Anxiety acute August 04 10:37am Congenital zkazli-xyyacgq-wtdcz reflux acute Apr2024 10:37am Current every day nicotine vaping acute August 04, 2024 10:37am Elevated serum creatinine acute August 04, 2024 10:37am FH: hemophilia acute August 04, 2024 10:37am Obesity affecting acute August 04, 2024 10:37am acute August 04 10:37am Supervision of normal first acute August 04, 2024 10:37am Recurrent UTI resolved August 04, 2024 10:37am Anxiety acute September 01, 2024 2:50pm Congenital vcninc-lzemkyp-hhuou reflux acute September 01, 2024 2:50pm Current every day nicotine vaping acute September 01, 2024 2: 50pm Elevated serum creatinine acute September 01, 2024 2:50pm FH: hemophilia acute September 01, 2 025 2:50pm Obesity affecting acute September 01, 2024 2:50pm acute September 01, 2024 2:50pm Supervision of normal first acute September 01, 2024 2: 50pm Anxiety acute September 28, 2024 2:50pm Congenital btpreh-ubgwnla-wcyzb reflux acute September 28, 2024 2:50pm Current [...] Anxiety acute October 27, 2024 1:38pm Congenital jbvein-wbtvrnj-bcibg reflux acute October 27, 2024 1:38pm Current [...] 1:38pm Anxiety acute November 09 3:21pm Congenital vrjehe-gyhpxrr-tkfzb reflux acute November 09, 2024 3:21pm Current [...] 3:21pm Anxiety acute November 19 8:30am Congenital gnawme-zmtavik-iqdak reflux acute November 19, 2024 8:30am Current [...] 8:30am Anxiety acute November 27 2:18pm Congenital mqtcah-dtrcifd-agcmt reflux acute 2024 2:18pm Current every day nicotine vaping acute November 27, 2024 2:18pm Elevated serum creatinine acute November 27, 2024 2:18pm FH: hemophilia acute November 2:18pm Kidney disease acute November 2:18pm Obesity affecting acute November 27, 2024 2:18pm acute November 27 2:18pm Supervision of normal first acute November 27, 2024 2:18pm [facility] Work Phone: 1(478) 799-461603-11-2025 Evaluation note* Diagnosis Onset Date Resolution Status Admit Date Anxiety acute July 07 2:50pm Current every day nicotine vaping acute July 07, 2024 2:50pm FH: hemophilia acute June 2:50pm Obesity affecting acute July 07, 2024 2:50pm acute July 07 2:50pm Recurrent UTI acute July 07, 2024 2:50pm Supervision of normal first acute July 07, 2024 2:50pm Anxiety acute August 04 10:37am Congenital ibiwbe-pbzaekz-jl nal reflux acute August 04, 2024 10:37am [...] Anxiety acute September 01, 2024 2:50pm Congenital mohrmi-zhgvyhu-mx nal reflux acute September 01, 2024 2: [...] Anxiety acute September 28, 2024 2:50pm Congenital nfhdlz-bpseexf-uy nal reflux acute September 28, 2024 2 [...] first acute September 28, 2024 2 :50pm [facility] Work Phone: 1(356) 278-152203-11-2025 Evaluation note* Diagnosis Onset Date Resolution Status Admit Date Anxiety acute July 07 2:50pm Current every day nicotine vaping acute July 07, 2024 2:50pm FH: hemophilia acute June 2:50pm Obesity affecting acute July 07, 2024 2:50pm acute July 07 2:50pm Recurrent UTI acute July 07, 2024 2:50pm Supervision of normal first acute July 07, 2024 2:50pm Anxiety acute August 04 10:37am Congenital uzcdwm-wysfanl-ad nal reflux acute August 04, 2024 10:37am [...] Anxiety acute September 01, 2024 2:50pm Congenital xsnmjy-pjgliht-ts nal reflux acute September 01, 2024 2: [...] Anxiety acute September 28, 2024 2:50pm Congenital xfozjd-qpsrfof-bx nal reflux acute September 28, 2024 2 [...] Anxiety acute October 27, 2024 1:38pm Congenital tofgvr-bhfsgob-om nal reflux acute October 27, 2024 1 [...] first acute October 27, 2024 1 :38pm [facility] Work Phone: 1([phone]) 770-687102-06-2025 Evaluation note* Diagnosis Onset Date Resolution Status [...] 2:50pm Anxiety acute August 04 10:37am Congenital qrnert-mhidepb-jrict reflux acute 2024 10:37am Current every day nicotine vaping acute August 04, 2024 10:37am Elevated serum creatinine acute August 04, 2024 10:37am FH: hemophilia acute August 04, 2024 10:37am Obesity affecting acute August 04, 2024 10:37am acute August 04 10:37am Recurrent UTI acute August 04, 2024 10:37am Supervision of normal first acute August 04, 2024 10:37am Anxiety acute September 01, 2024 2:50pm Congenital dvvszi-bysgrrb-xnbyf reflux acute September 01, 2024 2:50pm Current every day nicotine vaping acute September 01, 2024 2: 50pm Elevated serum creatinine acute September 01, 2024 2:50pm FH: hemophilia acute September 01, 2:50pm Obesity affecting acute September 01, 2024 2:50pm acute September 01, 2024 2:50pm Supervision of normal first acute September 01, 2024 2: 50pm [facility] Work Phone: 1(150) 815-378602-06-2025 Evaluation note* Diagnosis Onset Date Resolution Status [...] 2:50pm Anxiety acute August 04 10:37am Congenital kujrjh-sbooctv-syjeg reflux acute 2024 10:37am Current every day nicotine vaping acute August 04, 2024 10:37am Elevated serum creatinine acute August 04, 2024 10:37am FH: hemophilia acute August 04, 2024 10:37am Obesity affecting acute August 04, 2024 10:37am acute August 04 10:37am Recurrent UTI acute August 04, 2024 10:37am Supervision of normal first acute August 04, 2024 10:37am Anxiety acute September 01, 2024 2:50pm Congenital fqzlrg-rgbnsua-yonsc reflux acute September 01, 2024 2:50pm Current every day nicotine vaping acute September 01, 2024 2: 50pm Elevated serum creatinine acute September 01, 2024 2:50pm FH: hemophilia acute September 01, 2 025 2:50pm Obesity affecting acute September 01, 2024 2:50pm acute September 01, 2024 2:50pm Supervision of normal first acute September 01, 2024 2: 50pm Anxiety acute September 28, 2024 2:50pm Congenital exksuu-zqaiyny-paqec reflux acute September 28, 2024 2:50pm Current [...] first acute September 28, 2024 2 :50pm [facility] Work Phone: 1(718) 386-234512-18-2024 NotePap Smear Specimen AdequacyDetsehootsooi medical center ([facility] 2023 12:59amComment.Satisfactory for evaluation. No endocervical component is identified.[facility] A#[id number] Medical Specialty [facility] OhioComment on above:Satisfactory for evaluation. No endocervical component is identified. 04-15-2024 NotePap Smear Specimen AdequacyDeascension borgess lee hospitaler 2023 12:59amComment. Satisfactory for evaluation. No endocervical component is identified.[facility] A#[id number] Medical Specialty Hospital - Southeast OhioComment on above:Satisfactory for evaluation. No endocervical component is identified.04-15-2024 Evaluation note * Diagnosis Onset Date Resolution Status Admit Date Recurrent UTI acute April 152023 11:20am Encounter for routine gynecological examination noneactive [facility] er 2023 11:20am Anxiety acute [...] normal first acute July 07, 2024 2:50pm [facility] Work Phone: 1(600) 851-799212-18-2024 Evaluation note* Diagnosis Onset Date Resolution Status [...] 2:50pm Anxiety acute August 04 10:37am Congenital czyxzd-jiiauta-chndy reflux acute Apr2024 10:37am Current every day nicotine vaping acute August 04, 2024 10:37am Elevated serum creatinine acute August 04, 2024 10:37am FH: hemophilia acute August 04, 2024 10:37am Obesity affecting acute August 04, 2024 10:37am acute August 04 10:37am Recurrent UTI acute August 04, 2024 10:37am Supervision of normal first acute August 04, 2024 10:37am [facility] Work Phone: Progress note Author Susie Solomon [facility] Note Date/Time December 08, 2024 10 :10am [facility] [address] [place] [address], [address] [place] [address] OFFICE VISIT Date of Service: 12/08/24 MR#: [id number] Acct: [id number] Name: LUCIANO KENDALL Rep #: [id number] : 2000 Provider: ALEXANDRA Solomon Age/Sex: 24/F [place] [facility]: Signed Intake Vital Signs 10/27/24 13:28 11/27/24 14:23 12/08/24 09:37 Height 5 ft 8 in 5 ft 8 in 5 ft 8 in Weight: 286 lb 8 oz BMI 43.5 BP 130/82 H Intake Visit Reasons: 36wk ob 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 Is patient in pain?: No [...] year?: No PFSH PFSH Medical History Congenital esdrcb-xivpftt-lxbcx reflux Gallstones UTI (urinary tract infection) Asthma Surgical History Hx of cholecystectomy Hx of tonsillectomy Family History Father Diabetes Type 1 Aunt Thyroid disorder Maternal Mother Thyroid disorder enlarged Grandmother Breast cancer Paternal Social History adopted: No household members: significant other current occupational status: employed 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 occupational exposures/hazards: No [...] 1-2 times per week duration: 60-90 minutes/day sid/congregational: None seatbelt use: always do you feel [...] disease N28.9 Elevated serum creatinine R79.89 Congenital eregew-oesvezd-rwjic reflux Q62.7 Current every day nicotine vaping [...] and urine P/C ratio: 7/1: (3) Congenital nkkxla-ssdvgep-xaztz reflux: Status: Acute Comment: check urine func [...] Cosigner Signature: Date (if applicable) CC: ~ [facility] Work Phone: Progress note Author Ntia Mcintosh [facility] Note Date/Time December 22, 2024 1: 20pm [facility] [address], [address] [place] [address] OFFICE VISIT Date of Service: 12/22/24 MR#: [id number] Acct: [id number] Name: LUCIANO KENDALL Rep #: [id number] : 2000 Provider: Dr. 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 Is patient in pain?: No [...] : No PFSH PFSH Medical History Congenital wgbjmm-fapmozb-dhxvr reflux Gallstones UTI (urinary tract infection) Asthma Surgical History Hx of cholecystectomy Hx of tonsillectomy Family History Father Diabetes Type 1 Aunt Thyroid disorder Maternal Mother Thyroid disorder enlarged Grandmother Breast cancer Paternal Social History adopted: No household members: significant other current occupational status: employed 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 occupational exposures/hazards: No [...] 1-2 times per week duration: 60-90 minutes/day sid/congregational: None seatbelt use: always do you feel [...] disease N28.9 Elevated serum creatinine R79.89 Congenital gjybqv-gisosfn-hiacb reflux Q62.7 Current every day nicotine vaping [...] and urine P/C ratio: 7/1: (3) Congenital dkthbw-zwbfztj-wokym reflux: Status: Acute Comment: check urine func [...] Cosign Signature: Date (if applicable) CC: ~ [facility] Work Phone: Reason for referral (narrative)No reason for referral information availableWOhioHealth [facility] Work Phone: Summary Purpose Family [...] for Visit Chief Complaint Admit Date 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, 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 11:20am UTI April 15, [...] 2024 2:5 0pm Supervision of normal first [facility] 2024 2:50pm Chief Complaint Admit Date 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, 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 11:20am UTI April 15, [...] 2:5 0pm Supervision of normal first [facility] 2024 2:50pm Anxiety August 04, 2024 10:3 7am Congenital tsvzvh-ppslbpk-znpel reflux A pril 2024 10:37am Current every [...] 1 2:53pm Supervision of normal first [facility] [place] 2024 12:53pm Anxiety July 07, 2024 2:5 0pm Current every day nicotine vaping July 07, 2024 2:50pm FH: hemophilia July 07, 2024 2:5 0pm Obesity affecting July 07, 2024 2:50pm July 07, 2024 2:5 0pm Recurrent UTI July 07, 2024 2:5 0pm Supervision of normal first [facility] 2024 2:50pm Anxiety August 04, 2024 10:3 7am Congenital osacsf-cptelnw-ykndi reflux A pril 2024 10:37am Current every day nicotine vaping August 04, 2024 10:37am Elevated serum creatinine August 04 10:37am FH: hemophilia August 04, 2024 10:3 7am Obesity affecting August 04, 2 025 10:37am August 04, 2024 10:3 7am Recurrent UTI August 04, 2024 10:3 7am Supervision of normal first Ap ril 2024 10:37am Anxiety September 01, 2024 2:50pm Congenital cjsiyy-ahihivy-yddxy reflux M ay 2024 2:50pm Current every [...] 2:5 0pm Supervision of normal first [facility] 2024 2:50pm Anxiety August 04, 2024 10:3 7am Congenital vyccnu-xsubdeb-hfbvt reflux A pril 2024 10:37am Current every day nicotine vaping August 04, 2024 10:37am Elevated serum creatinine August 04 10:37am FH: hemophilia August 04, 2024 10:3 7am Obesity affecting August 04, 2 025 10:37am August 04, 2024 10:3 7am Recurrent UTI August 04, 2024 10:3 7am Supervision of normal first Ap ril 2024 10:37am Anxiety September 01, 2024 2:50pm Congenital kueqeo-pubitch-innin reflux M ay 2024 2:50pm Current every day nicotine vaping August 2:50pm Elevated serum creatinine September 01, 2024 2:50pm FH: hemophilia September 01, 2024 2:50pm Obesity affecting September 01 2:50pm September 01, 2024 2:50pm Supervision of normal first Ma y 2024 2:50pm Anxiety September 28, 2024 2:50p m Congenital syzacv-mjrhuik-zrhab reflux J une 2024 2:50pm Current every [...] 2:5 0pm Supervision of normal first [facility] 2024 2:50pm Anxiety August 04, 2024 10:3 7am Congenital rbfhnq-xuoncfo-zoyvr reflux A pril 2024 10:37am Current every day nicotine vaping August 04, 2024 10:37am Elevated serum creatinine August 04 10:37am FH: hemophilia August 04, 2024 10:3 7am Obesity affecting August 04, 2 025 10:37am August 04, 2024 10:3 7am Recurrent UTI August 04, 2024 10:3 7am Supervision of normal first Ap ril 2024 10:37am Anxiety September 01, 2024 2:50pm Congenital qwvdzr-obylakf-seauo reflux M ay 2024 2:50pm Current every day nicotine vaping August 2:50pm Elevated serum creatinine September 01, 2024 2:50pm FH: hemophilia September 01, 2024 2:50pm Obesity affecting September 01 2:50pm September 01, 2024 2:50pm Supervision of normal first Ma y 2024 2:50pm Anxiety September 28, 2024 2:50p m Congenital vpuhta-xijndab-hjwem reflux J une 2024 2:50pm Current every [...] 2:5 0pm Supervision of normal first [facility] 2024 2:50pm Anxiety August 04, 2024 10:3 7am Congenital ksxrgb-osnidth-sbfls reflux A pril 2024 10:37am Current every day nicotine vaping August 04, 2024 10:37am Elevated serum creatinine August 04 10:37am FH: hemophilia August 04, 2024 10:3 7am Obesity affecting August 04, 2 025 10:37am August 04, 2024 10:3 7am Recurrent UTI August 04, 2024 10:3 7am Supervision of normal first Ap ril 2024 10:37am Anxiety September 01, 2024 2:50pm Congenital ckcect-ukwqkza-agmop reflux M ay 2024 2:50pm Current every day nicotine vaping August 2:50pm Elevated serum creatinine September 01, 2024 2:50pm FH: hemophilia September 01, 2024 2:50pm Obesity affecting September 01 2:50pm September 01, 2024 2:50pm Supervision of normal first Ma y 2024 2:50pm Anxiety September 28, 2024 2:50p m Congenital scflve-qqswumt-lxycj reflux J une 2024 2:50pm Current every [...] Anxiety October 27, 2024 1:38p m Congenital ccphby-tqehkvi-pevln reflux J gary 2024 1:38pm Current every [...] Anxiety August 04, 2024 10:3 7am Congenital hioqlx-xvsnids-dzdtc reflux A pril 2024 10:37am Current every day nicotine vaping August 04, 2024 10:37am Elevated serum creatinine August 04 10:37am FH: hemophilia August 04, 2024 10:3 7am Obesity affecting August 04, 2 025 10:37am August 04, 2024 10:3 7am Supervision of normal first Ap ril 2024 10:37am Recurrent UTI August 04, 2024 10:3 7am Anxiety September 01, 2024 2:50pm Congenital driway-qbpxcxw-wpoud reflux M ay 2024 2:50pm Current every day nicotine vaping August 2:50pm Elevated serum creatinine September 01, 2024 2:50pm FH: hemophilia September 01, 2024 2:50pm Obesity affecting September 01 2:50pm September 01, 2024 2:50pm Supervision of normal first Ma y 2024 2:50pm Anxiety September 28, 2024 2:50p m Congenital vhvdpn-lkevzvu-yxdpm reflux J une 2024 2:50pm Current every [...] Anxiety October 27, 2024 1:38p m Congenital nxgowr-gucibpl-lpigd reflux J gary 2024 1:38pm Current every [...] Anxiety November 09, 2024 3:21 pm Congenital guwcdo-pjhaocd-ezolc reflux J gary 2024 3:21pm Current every [...] Anxiety August 04, 2024 10:3 7am Congenital uqksfb-okoafxl-qzvcj reflux A pril 2024 10:37am Current every day nicotine vaping August 04, 2024 10:37am Elevated serum creatinine August 04 10:37am FH: hemophilia August 04, 2024 10:3 7am Obesity affecting August 04, 2 025 10:37am August 04, 2024 10:3 7am Supervision of normal first Ap ril 2024 10:37am Recurrent UTI August 04, 2024 10:3 7am Anxiety September 01, 2024 2:50pm Congenital whybiw-zkffqfm-ronqw reflux M ay 2024 2:50pm Current every day nicotine vaping August 2:50pm Elevated serum creatinine September 01, 2024 2:50pm FH: hemophilia September 01, 2024 2:50pm Obesity affecting September 01 2:50pm September 01, 2024 2:50pm Supervision of normal first Ma y 2024 2:50pm Anxiety September 28, 2024 2:50p m Congenital wrggyx-vevdncu-pahoz reflux J une 2024 2:50pm Current every [...] Anxiety October 27, 2024 1:38p m Congenital jnjygr-iummojh-srfsp reflux J gary 2024 1:38pm Current every [...] Anxiety November 09, 2024 3:21 pm Congenital xkonay-nyhfite-ifdkv reflux J gary 2024 3:21pm Current every day nicotine vaping October 272024 3:21pm Elevated serum creatinine November 09 3:21pm FH: hemophilia November 09, 2024 3:21 pm Kidney disease November 09, 2024 3:21 pm Obesity affecting November 09, 2 025 3:21pm November 09, 2024 3:21 pm Supervision of normal first Ju ly 2024 3:21pm Anxiety November 19, 2024 8:30 am Congenital fvllss-uramibz-fihwp reflux J gary 2024 8:30am Current every [...] Anxiety August 04, 2024 10:3 7am Congenital iyfcmt-fpzzlit-dknqb reflux A pril 2024 10:37am Current every day nicotine vaping August 04, 2024 10:37am Elevated serum creatinine August 04 10:37am FH: hemophilia August 04, 2024 10:3 7am Obesity affecting August 04, 2 025 10:37am August 04, 2024 10:3 7am Supervision of normal first Ap ril 2024 10:37am Recurrent UTI August 04, 2024 10:3 7am Anxiety September 01, 2024 2:50pm Congenital xsnmnv-pompeui-vfbel reflux M ay 2024 2:50pm Current every day nicotine vaping August 2:50pm Elevated serum creatinine September 01, 2024 2:50pm FH: hemophilia September 01, 2024 2:50pm Obesity affecting September 01 2:50pm September 01, 2024 2:50pm Supervision of normal first Ma y 2024 2:50pm Anxiety September 28, 2024 2:50p m Congenital gczppb-mzkkigv-nzebk reflux J une 2024 2:50pm Current every [...] Anxiety October 27, 2024 1:38p m Congenital nyovty-cvlgulf-qibdd reflux J gary 2024 1:38pm Current every [...] Anxiety November 09, 2024 3:21 pm Congenital nkruqd-chuhczq-bfkih reflux J gary 2024 3:21pm Current every day nicotine vaping October 272024 3:21pm Elevated serum creatinine November 09 3:21pm FH: hemophilia November 09, 2024 3:21 pm Kidney disease November 09, 2024 3:21 pm Obesity affecting November 09, 2 025 3:21pm November 09, 2024 3:21 pm Supervision of normal first Ju ly 2024 3:21pm Anxiety November 19, 2024 8:30 am Congenital rvmzfc-pvbnsvh-koymp reflux J gary 2024 8:30am Current every day nicotine vaping October 282024 8:30am Elevated serum creatinine November 19 8:30am FH: hemophilia November 19, 2024 8:30 am Kidney disease November 19, 2024 8:30 am Obesity affecting November 19, 2 025 8:30am November 19, 2024 8:30 am Supervision of normal first Ju ly 2024 8:30am Anxiety November 27, 2024 2:1 8pm Congenital oqmzfo-aqrjuhm-owhvf reflux A ugust 2024 2:18pm Current every [...] Date Anxiety September 01, 2024 2:50pm Congenital jsxqpt-pingrpg-jrrpi reflux M ay 2024 2:50pm Current every day nicotine vaping August 2:50pm Elevated serum creatinine September 01, 2024 2:50pm FH: hemophilia September 01, 2024 2:50pm Obesity affecting September 01 2:50pm September 01, 2024 2:50pm Supervision of normal first Ma y 2024 2:50pm Anxiety September 28, 2024 2:50p m Congenital ypjcbv-euxqdaf-gvycb reflux J une 2024 2:50pm Current every [...] Anxiety October 27, 2024 1:38p m Congenital mrpvup-yftrilu-hynoz reflux J gary 2024 1:38pm Current every [...] Anxiety November 09, 2024 3:21 pm Congenital mvfoel-nhccwij-ikocp reflux J gary 2024 3:21pm Current every day nicotine vaping October 272024 3:21pm Elevated serum creatinine November 09 3:21pm FH: hemophilia November 09, 2024 3:21 pm Kidney disease November 09, 2024 3:21 pm Obesity affecting November 09, 2 025 3:21pm November 09, 2024 3:21 pm Supervision of normal first Ju ly 2024 3:21pm Anxiety November 19, 2024 8:30 am Congenital kmdqkf-ebltdin-fhdci reflux J gary 2024 8:30am Current every day nicotine vaping October 282024 8:30am Elevated serum creatinine November 19 8:30am FH: hemophilia November 19, 2024 8:30 am Kidney disease November 19, 2024 8:30 am Obesity affecting November 19, 2 025 8:30am November 19, 2024 8:30 am Supervision of normal first Ju ly 2024 8:30am Anxiety November 27, 2024 2:1 8pm Congenital kkorey-yvpmbdg-cfnrj reflux A ugust 2024 2:18pm Current every day nicotine vaping November 27, 2024 2:18pm Elevated serum creatinine November 27 2:18pm FH: hemophilia November 27, 2024 2:1 8pm Kidney disease November 27, 2024 2:1 8pm Obesity affecting November 27, 2024 2:18pm November 27, 2024 2:1 8pm Supervision of normal first Au fatoumata 2024 2:18pm Anxiety December 08, 2024 9: 33am Congenital dxaohk-bqzjned-unqdf reflux A ugust 2024 9:33am Current every [...] Date Anxiety September 01, 2024 2:50pm Congenital agdyby-bmumgrs-bmysd reflux M ay 2024 2:50pm Current every day nicotine vaping August 2:50pm Elevated serum creatinine September 01, 2024 2:50pm FH: hemophilia September 01, 2024 2:50pm Obesity affecting September 01 2:50pm September 01, 2024 2:50pm Supervision of normal first Ma y 2024 2:50pm Anxiety September 28, 2024 2:50p m Congenital iubzkr-ljxxbjz-cysxg reflux J une 2024 2:50pm Current every [...] Anxiety October 27, 2024 1:38p m Congenital nwfcww-mucjrat-mavmz reflux J gary 2024 1:38pm Current every [...] Anxiety November 09, 2024 3:21 pm Congenital uwsghz-lsjbwot-nnzla reflux J gary 2024 3:21pm Current every day nicotine vaping October 272024 3:21pm Elevated serum creatinine November 09 3:21pm FH: hemophilia November 09, 2024 3:21 pm Kidney disease November 09, 2024 3:21 pm Obesity affecting November 09, 2 025 3:21pm November 09, 2024 3:21 pm Supervision of normal first Ju ly 2024 3:21pm Anxiety November 19, 2024 8:30 am Congenital qrpwek-suzjgpz-nuitu reflux J gary 2024 8:30am Current every day nicotine vaping October 282024 8:30am Elevated serum creatinine November 19 8:30am FH: hemophilia November 19, 2024 8:30 am Kidney disease November 19, 2024 8:30 am Obesity affecting November 19, 2 025 8:30am November 19, 2024 8:30 am Supervision of normal first Ju ly 2024 8:30am Anxiety November 27, 2024 2:1 8pm Congenital fstubq-pcrwdrz-ajunl reflux A ugust 2024 2:18pm Current every day nicotine vaping November 27, 2024 2:18pm Elevated serum creatinine November 27 2:18pm FH: hemophilia November 27, 2024 2:1 8pm Kidney disease November 27, 2024 2:1 8pm Obesity affecting November 27, 2024 2:18pm November 27, 2024 2:1 8pm Supervision of normal first [facility] 2024 2:18pm Anxiety December 08, 2024 9: 33am Congenital zcvimv-ykponvm-ftfqu reflux A ugust 2024 9:33am Current every day nicotine vaping December 08, 2024 9:33am Elevated serum creatinine December 08, 2 025 9:33am FH: hemophilia December 08, 2024 9: 33am Kidney disease December 08, 2024 9: 33am Obesity affecting December 08, 2024 9:33am December 08, 2024 9: 33am Supervision of normal first [facility] 2024 9:33am Anxiety December 17, 2024 3: 44pm Congenital jibmzr-nanzhmf-ezmzi reflux A ugust 2024 3:44pm Current every day nicotine vaping December 17, 2024 3:44pm Elevated serum creatinine December 17, 2 025 3:44pm FH: hemophilia December 17, 2024 3: 44pm Kidney disease December 17, 2024 3: 44pm Obesity affecting December 17, 2024 3:44pm December 17, 2024 3: 44pm Supervision of normal first [facility] 2024 3:44pm Chief Complaint Admit Date 22 [...] Date Anxiety September 01, 2024 2:50pm Congenital xaotln-tzpgnpo-ykkyd reflux M ay 2024 2:50pm Current every day nicotine vaping August 2:50pm Elevated serum creatinine September 01, 2024 2:50pm FH: hemophilia September 01, 2024 2:50pm Obesity affecting September 01 2:50pm September 01, 2024 2:50pm Supervision of normal first Ma y 2024 2:50pm Anxiety September 28, 2024 2:50p m Congenital cocahm-etyypht-egkza reflux J une 2024 2:50pm Current every [...] Anxiety October 27, 2024 1:38p m Congenital dwdipa-qrisjjj-wopeg reflux J gary 2024 1:38pm Current every [...] Anxiety November 09, 2024 3:21 pm Congenital dualst-wfypniq-phkfw reflux J gary 2024 3:21pm Current every day nicotine vaping October 272024 3:21pm Elevated serum creatinine November 09 3:21pm FH: hemophilia November 09, 2024 3:21 pm Kidney disease November 09, 2024 3:21 pm Obesity affecting November 09, 2 025 3:21pm November 09, 2024 3:21 pm Supervision of normal first Ju ly 2024 3:21pm Anxiety November 19, 2024 8:30 am Congenital wevell-lqsrmqh-yhxjx reflux J gary 2024 8:30am Current every day nicotine vaping October 282024 8:30am Elevated serum creatinine November 19 8:30am FH: hemophilia November 19, 2024 8:30 am Kidney disease November 19, 2024 8:30 am Obesity affecting November 19, 2 025 8:30am November 19, 2024 8:30 am Supervision of normal first Ju ly 2024 8:30am Anxiety November 27, 2024 2:1 8pm Congenital zennnw-gdwnwjy-iiyxp reflux A ugust 2024 2:18pm Current every day nicotine vaping November 27, 2024 2:18pm Elevated serum creatinine November 27 2:18pm FH: hemophilia November 27, 2024 2:1 8pm Kidney disease November 27, 2024 2:1 8pm Obesity affecting November 27, 2024 2:18pm November 27, 2024 2:1 8pm Supervision of normal first [facility] 2024 2:18pm Anxiety December 08, 2024 9: 33am Congenital tsarcy-tnnubtb-ergtq reflux A ugust 2024 9:33am Current every day nicotine vaping December 08, 2024 9:33am Elevated serum creatinine December 08, 2 025 9:33am FH: hemophilia December 08, 2024 9: 33am Kidney disease December 08, 2024 9: 33am Obesity affecting December 08, 2024 9:33am December 08, 2024 9: 33am Supervision of normal first [facility] 2024 9:33am Anxiety December 17, 2024 3: 44pm Congenital chqvcd-qhcobqt-atbde reflux A ugust 2024 3:44pm Current every day nicotine vaping December 17, 2024 3:44pm Elevated serum creatinine December 17, 2 025 3:44pm FH: hemophilia December 17, 2024 3: 44pm Kidney disease December 17, 2024 3: 44pm Obesity affecting December 17, 2024 3:44pm December 17, 2024 3: 44pm Supervision of normal first [facility] 2024 3:44pm Anxiety December 22, 2024 12 :54pm Congenital aprikx-qgvfqii-twofa reflux A ugust 2024 12:54pm Current every [...] Date Anxiety September 01, 2024 2:50pm Congenital gldmfo-gxbisgc-skfod reflux M ay 2024 2:50pm Current every day nicotine vaping August 2:50pm Elevated serum creatinine September 01, 2024 2:50pm FH: hemophilia September 01, 2024 2:50pm Obesity affecting September 01 2:50pm September 01, 2024 2:50pm Supervision of normal first Ma y 2024 2:50pm Anxiety September 28, 2024 2:50p m Congenital zfufyj-jnjheie-eewmw reflux J une 2024 2:50pm Current every [...] Anxiety October 27, 2024 1:38p m Congenital kqaedy-yhrctpo-wfnos reflux J gary 2024 1:38pm Current every [...] Anxiety November 09, 2024 3:21 pm Congenital vfaebb-hjwwoom-ashyx reflux J gary 2024 3:21pm Current every day nicotine vaping October 272024 3:21pm Elevated serum creatinine November 09 3:21pm FH: hemophilia November 09, 2024 3:21 pm Kidney disease November 09, 2024 3:21 pm Obesity affecting November 09, 2 025 3:21pm November 09, 2024 3:21 pm Supervision of normal first Ju ly 2024 3:21pm Anxiety November 19, 2024 8:30 am Congenital pnomou-grzutxi-tdbuk reflux J gary 2024 8:30am Current every day nicotine vaping October 282024 8:30am Elevated serum creatinine November 19 8:30am FH: hemophilia November 19, 2024 8:30 am Kidney disease November 19, 2024 8:30 am Obesity affecting November 19, 2 025 8:30am November 19, 2024 8:30 am Supervision of normal first Ju ly 2024 8:30am Anxiety November 27, 2024 2:1 8pm Congenital mgrady-bhfkfmv-dqqpw reflux A ugust 2024 2:18pm Current every day nicotine vaping November 27, 2024 2:18pm Elevated serum creatinine November 27 2:18pm FH: hemophilia November 27, 2024 2:1 8pm Kidney disease November 27, 2024 2:1 8pm Obesity affecting November 27, 2024 2:18pm November 27, 2024 2:1 8pm Supervision of normal first [facility] 2024 2:18pm Anxiety December 08, 2024 9: 33am Congenital wcaudq-lmruwhv-svowl reflux A ug2024 9:33am Current every day nicotine vaping December 08, 2024 9:33am Elevated serum creatinine December 08, 2 025 9:33am FH: hemophilia December 08, 2024 9: 33am Kidney disease December 08, 2024 9: 33am Obesity affecting December 08, 2024 9:33am December 08, 2024 9: 33am Supervision of normal first Au fatoumata 2024 9:33am Anxiety December 17, 2024 3: 44pm Congenital kowhwx-jlygmcu-jzzdd reflux A ug2024 3:44pm Current every day nicotine vaping December 17, 2024 3:44pm Elevated serum creatinine December 17, 2 025 3:44pm FH: hemophilia December 17, 2024 3: 44pm Kidney disease December 17, 2024 3: 44pm Obesity affecting December 17, 2024 3:44pm December 17, 2024 3: 44pm Supervision of normal first [facility] fatoumata 2024 3:44pm Anxiety December 22, 2024 12 :54pm Congenital kneprz-zkiaauz-pbbpz reflux A ugust 2024 12:54pm Current every day nicotine vaping December 22, 2024 12:54pm Elevated serum creatinine December 22, 2 025 12:54pm FH: hemophilia December 22, 2024 12 :54pm Kidney disease December 22, 2024 12 :54pm Obesity affecting December 22, 2024 12:54pm December 22, 2024 12 :54pm Supervision of normal first Valentina ham 2024 12:54pm Anxiety December 30, 2024 2:50pm Congenital hlpdcv-mvnfewz-cuujd reflux S eptember 2024 2:50pm Current every [...] Anxiety September 28, 2024 2:50p m Congenital ezifjm-mewtabi-yuvux reflux J une 2024 2:50pm Current every [...] Anxiety October 27, 2024 1:38p m Congenital iggsqx-aqufqcx-xoicb reflux J gary 2024 1:38pm Current every [...] Anxiety November 09, 2024 3:21 pm Congenital ulmyio-gwsvxcw-wugtp reflux J gary 2024 3:21pm Current every day nicotine vaping October 272024 3:21pm Elevated serum creatinine November 09 3:21pm FH: hemophilia November 09, 2024 3:21 pm Kidney disease November 09, 2024 3:21 pm Obesity affecting November 09, 2 025 3:21pm November 09, 2024 3:21 pm Supervision of normal first Ju ly 2024 3:21pm Anxiety November 19, 2024 8:30 am Congenital zvuteq-tttmwfx-zxtvf reflux J gary 2024 8:30am Current every day nicotine vaping October 282024 8:30am Elevated serum creatinine November 19 8:30am FH: hemophilia November 19, 2024 8:30 am Kidney disease November 19, 2024 8:30 am Obesity affecting November 19, 2 025 8:30am November 19, 2024 8:30 am Supervision of normal first [facility] 2024 8:30am Anxiety November 27, 2024 2:1 8pm Congenital daoxrt-pfyfded-hbvby reflux A 2024 2:18pm Current every day nicotine vaping November 27, 2024 2:18pm Elevated serum creatinine November 27 2:18pm FH: hemophilia November 27, 2024 2:1 8pm Kidney disease November 27, 2024 2:1 8pm Obesity affecting November 27, 2024 2:18pm November 27, 2024 2:1 8pm Supervision of normal first [facility] 2024 2:18pm Anxiety December 08, 2024 9: 33am Congenital jviazt-fabdqti-ewwvd reflux A ugust 2024 9:33am Current every day nicotine vaping December 08, 2024 9:33am Elevated serum creatinine December 08, 2 025 9:33am FH: hemophilia December 08, 2024 9: 33am Kidney disease December 08, 2024 9: 33am Obesity affecting December 08, 2024 9:33am December 08, 2024 9: 33am Supervision of normal first [facility] 2024 9:33am Anxiety December 17, 2024 3: 44pm Congenital rxqukx-emmziwz-shmku reflux A ugust 2024 3:44pm Current every day nicotine vaping December 17, 2024 3:44pm Elevated serum creatinine December 17, 2 025 3:44pm FH: hemophilia December 17, 2024 3: 44pm Kidney disease December 17, 2024 3: 44pm Obesity affecting December 17, 2024 3:44pm December 17, 2024 3: 44pm Supervision of normal first Au fatoumata 2024 3:44pm Anxiety December 22, 2024 12 :54pm Congenital gbdiui-qbvdzdk-erszq reflux A ugust 2024 12:54pm Current every day nicotine vaping December 22, 2024 12:54pm Elevated serum creatinine December 22, 2 025 12:54pm FH: hemophilia December 22, 2024 12 :54pm Kidney disease December 22, 2024 12 :54pm Obesity affecting December 22, 2024 12:54pm December 22, 2024 12 :54pm Supervision of normal first Au fatoumata 2024 12:54pm Anxiety December 30, 2024 2:50pm Congenital wmfnrt-gfxlqng-iqjiw reflux S eptemb2024 2:50pm Current every day nicotine vaping 2024 2:50pm Elevated serum creatinine December 30, 2024 2:50pm FH: hemophilia December 30, 2024 2:50pm Kidney disease December 30, 2024 2:50pm Obesity affecting December 2:50pm December 30, 2024 2:50pm Supervision of normal first Se pt2024 2:50pm Anxiety January 04, 2025 3:05pm Congenital gldaqp-ehcjbsq-eedvi reflux S eptemb2024 3:05pm Current every day nicotine vaping Decem 2024 3:05pm Elevated serum creatinine January 04, 2025 3:05pm FH: hemophilia January 04, 2025 3:05pm Kidney disease January 04, 2025 3:05pm Obesity affecting December 3:05pm January 04, 2025 3:05pm Supervision of normal first Se pt2024 3:05pm Additional Source Comments INFORMATION SOURCE (unrecogn ized section and content) DATE CREATED AUTHOR 11/06/2017 [facility] DATE CREATED AUTHOR AUTHOR'S ORGANIZ ATION 11/20/2017 [facility] DATE CREATED AUTHOR AUTHOR'S ORGANIZ ATION 11/27/2017 [facility] DATE CREATED AUTHOR AUTHOR'S ORGANIZ ATION 12/20/2017 [facility] [place] DATE CREATED AUTHOR AUTHOR'S ORGANIZ ATION 05/13/2019 [facility] DATE CREATED AUTHOR AUTHOR'S ORGANIZ ATION 01/06/2025 [facility] Care Teams (unrecognized sec tion and content) [...] 2024 End: August 04, 2024 Jennifer Willard 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, 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 Attending Provider Active Start: August 04, 2024 End: August 04, 2024 Team Status: Inactive Member Role Status Dates Dr. Donald Waller MD Primary Care Provider Active Start: August 04, 2024 End: August 04, 2024 Jennifer Willard 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, 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 Attending Provider Active Start: August 04, 2024 End: August 04, 2024 Jennifer Willard 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, 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 Referring Provider Active Start: August 04, 2024 [...] 2024 End: September 28, 2024 Jennifer Willard 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, 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 Attending Provider Active Start: September 28, 2024 [...] 2024 End: August 04, 2024 Jennifer Willard 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, 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 Attending Provider Active Start: August 04, 2024 End: August 04, 2024 Team Status: Inactive Member Role/Relationship Status Dates Dr. Donald Waller MD Primary Care Provider Active Start: August 04, 2024 End: August 04, 2024 Jennifer Willard 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, 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 Attending Provider Active Start: August 04, 2024 End: August 04, 2024 Jennifer Willard 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, 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 Referring Provider Active Start: August 04, 2024 [...] 2024 End: September 28, 2024 Jennifer Willard 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, 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 Attending Provider Active Start: September 28, 2024 [...] 2024 End: October 27, 2024 Jennifer Willard 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, 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 Attending Provider Active Start: October 27, 2024 End: October 27, 2024 Team Status: Active Member Role/Relationship Status Dates Dr. Donald Waller MD Primary Care Provider Active Start: October 27, 2024 Jennifer Willard 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, 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 Attending Provider Active Start: October 27, 2024 Jennifer Willard 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, 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 Referring Provider Active Start: October 27, 2024 Team Status: Inactive Member Role/Relationship Status Dates Dr. Donald Waller MD Primary Care Provider Active Start: October 27, 2024 End: October 27, 2024 Jennifer Willard 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, 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 Attending Provider Active Start: October 27, 2024 End: October 27, 2024 Jennifer Willard 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, 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 Referring Provider Active Start: October 27, 2024 End: October 27, 2024 Team Status: Inactive Member Role/Relationship Status Dates Dr. Donald Waller MD Primary Care Provider Active Start: August 04, 2024 End: August 04, 2024 Dr. Donald Waller MD Referring Provider Active Start: August 04, 2024 End: August 04, 2024 Jennifer Willard 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, 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 Attending Provider Active Start: August 04, 2024 End: August 04, 2024 Team Status: Inactive Member Role/Relationship Status Dates Dr. Donald Waller MD Primary Care Provider Active Start: August 04, 2024 End: August 04, 2024 Jennifer Willard 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, 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 Attending Provider Active Start: August 04, 2024 End: August 04, 2024 Jennifer Willard 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, 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 Referring Provider Active Start: August 04, 2024 [...] 2024 End: September 28, 2024 Jennifer Willard 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, 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 Attending Provider Active Start: September 28, 2024 [...] 2024 End: October 27, 2024 Dr. Donald aWller MD Referring Provider Active Start: October 27, 2024 End: October 27, 2024 Jennifer Willard 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, 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 Attending Provider Active Start: October 27, 2024 End: October 27, 2024 Team Status: Inactive Member Role/Relationship Status Dates Dr. Donald Waller MD Primary Care Provider Active Start: October 27, 2024 End: October 27, 2024 Jennifer Willard 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, 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 Attending Provider Active Start: October 27, 2024 End: October 27, 2024 Jennifer Willard 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, 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 Referring Provider Active Start: October 27, 2024 [...] 2024 End: October 27, 2024 Jennifer Willard 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, 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 Attending Provider Active Start: October 27, 2024 End: October 27, 2024 Team Status: Inactive Member Role/Relationship Status Dates Dr. Donald Waller MD Primary Care Provider Active Start: October 27, 2024 End: October 27, 2024 Jennifer Willard 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, 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 Attending Provider Active Start: October 27, 2024 End: October 27, 2024 Jennifer Willard 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, 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 Referring Provider Active Start: October 27, 2024 [...] End: September 28, 2024 Jennifer Willard NP, 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 Attending Provider Active Start: September 28, 2024 [...] 2024 End: October 27, 2024 Jennifer Willard 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, 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 Attending Provider Active Start: October 27, 2024 End: October 27, 2024 Team Status: Inactive Member Role/Relationship Status Dates Dr. Donald Waller MD Primary Care Provider Active Start: October 27, 2024 End: October 27, 2024 Jennifer Willard 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, 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 Attending Provider Active Start: October 27, 2024 End: October 27, 2024 Jennifer Willard 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, 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 Referring Provider Active Start: October 27, 2024 [...] 2024 End: September 28, 2024 Jennifer Willard 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, 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 Attending Provider Active Start: September 28, 2024 [...] 2024 End: October 27, 2024 Jennifer Willard 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, 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 Attending Provider Active Start: October 27, 2024 End: October 27, 2024 Team Status: Inactive Member Role/Relationship Status Dates Dr. Donald Waller MD Primary Care Provider Active Start: October 27, 2024 End: October 27, 2024 Jennifer Willard 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, 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 Attending Provider Active Start: October 27, 2024 End: October 27, 2024 Jennifer Willard 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, 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 Referring Provider Active Start: October 27, 2024 [...] 2024 End: September 28, 2024 Jennifer Willard 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, 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 Attending Provider Active Start: September 28, 2024 [...] 2024 End: October 27, 2024 Jennifer Willard 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, 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 Attending Provider Active Start: October 27, 2024 End: October 27, 2024 Team Status: Inactive Member Role/Relationship Status Dates Dr. Donald Waller MD Primary Care Provider Active Start: October 27, 2024 End: October 27, 2024 Jennifer Willard 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, 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 Attending Provider Active Start: October 27, 2024 End: October 27, 2024 Jennifer Willard 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, 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 Referring Provider Active Start: October 27, 2024 [...] BE BASED ON THE PRIMARY CLINICAL RECORDS. [facility]. provides no warranty or guarantee of the accuracy or completeness of information in this document.
[2025-01-06] MEDS: Lactated Ringers 1,000 ML 999 ML IV (08:10)
--- NOTE | 2025-01-06 08:13 | HP.PCM.OB_ITS ---
HPI - General General Date of Admission: 01/06/25 Date of Service: 01/06/25 HPI Narrative LUCIANO KENDALL, is a 24 F 40.0 weeks gestation who presents to unit with SROM. meconium fluid noted Maternal Data Information TERRENCE Calculator Estimated Delivery Date Method Current WG Current Estimate 01/06/25 LMP (Certain) 40w 0d Other Estimates 01/09/25 Ultrasound #1 39w 4d Final TERRENCE: 01/06/25 Final TERRENCE Source: US >20 weeks Gestational age: 40.0 [facility] Medical History Congenital fnzkyw-bcaxfoa-ldvnv reflux Gallstones UTI (urinary tract infection) Asthma Home Medications ?Medication ?Instructions ?Recorded ?Last Taken ?Type Bacillus coagulans 250 million 2 tab PO ONCE 05/26/24 Unknown History cell chewable tablet (Probiotic (B. coagulans)) PNV 153-FA 400 mcg-om3 35 mg-dha tab PO 05/26/24 Unkno wn History 25 mg-epa 5 mg-fish oil chew tablet ascorbate calcium (vitamin C) 500 500 mg PO QDAY 05/26 Unknown History mg tablet ferrous sulfate 137 mg (45 mg 137 mg PO QDAY 05/26/24 Unknown History iron) tablet,extended release (Slow Fe) ondansetron 4 mg disintegrating 4 mg PO Q4H PRN nausea and 08/04/24 Unknown Rx tablet vomiting #60 tabs Allergy/AdvReac Type Severity Reaction Status Date / Time No Known Allergies Allergy Verified 01/06/25 06:58 Family History Father Diabetes Type 1 Aunt Thyroid disorder Maternal Mother Thyroid disorder enlarged Grandmother Breast cancer Paternal Surgical History Hx of cholecystectomy Hx of tonsillectomy Social History adopted: No household members: significant other current occupational status: employed 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[employer] current occupational exposures/hazards: No pets and animals: Yes (Avoid litter box) pets and animals: cat(s) history of recent travel: Yes () out of country: Yes sexually active: Yes Smoking Status: Current every day smoker Electronic Cigarette Use: with nicotine quit status: considering quitting alcohol intake: current alcohol intake frequency: a few times a month details: Not while substance use type: does not use well-balanced diet: about half the time caffeine: Yes Type: coffee Number of servings: 1 eating out: 1-3 times/week during the past year weight has: decreased > 10 lbs what type of physical activity do you participate in: walking and weight training frequency: 1-2 times per week duration: 60-90 minutes/day sid/islam: None seatbelt use: always do you feel safe at home: Yes additional social history: significant other- Juan History 1 Elective abortions Hx Para 0 Spontaneous abortions Hx # Term Pregnancies Ectopic pregnancies Hx # Pregnancies Multiple births # of living children Visit Details Expected Delivery Route/Plan Labor Preferences- CB/BF classes: encouraged- will take online labor support person: Wesley labor intervention preferences: epidural pain management options preferred: [] cut cord/dad catch: maybe cord : yes PP control planned: discussed discussed possible routes of delivery and associated risks: [] special requests: [] Plans Covid status: [] Flu vaccine: [] Tdap vaccine: 10/27/24 Rhogam: NA LARC form signed: yes movement and labor precautions reviewed. Problem list reviewed and updated with the most current plan of care details and appropriate orders placed. Relevant counseling for the gestational age provided. Continue routine care and follow up unless otherwise noted in visit notes/problem list details OB Flowsheet Initial Weight: 226 lb Date -?-?-?-?-?-?-?-?-?-?-?-?- EGA Weight BP Urine Prot -?-?-?-?-?-?-?-?-?-?-?-?- Glucose FHR FuHt Pres Dilation -?-?-?-?-?-?-?-?-?-?-?-?- Effaced St Visit Note 06/04/24 -?-?-?-?-?-?-?-?-?-?-?-?- 9w 1d 226 lb 4 oz (+4 oz) 128/82 -?-?-?-?-?-?-?-?-?-?-?-?- 175 -?-?-?-?-?-?-?-?-?-?-?-?- KW- CRL cons wit h dates. accepts nipt. 07/07/24 -?-?-?-?-?-?-?-?-?-?-?-?- 13w 6d 228 lb 8 oz (+2 lb 8 oz) 131/84 Negative -?-?-?-?-?-?-?-?-?-?-?-?- Negative 145 -?-?-?-?-?-?-?-?-?-?-?-?- Sm- no vb crampi ng 08/04/24 -?-?-?-?-?-?-?-?-?-?-?-?- 17w 6d 235 lb 6 oz (+9 lb 6 oz) 124/82 -?-?-?-?-?-?-?-?-?-?-?-?- 153 -?-?-?-?-?-?-?-?-?-?-?-?- MH-No VB. Reques ts labs for urinary reflux today:does q3mo. Denies UTI sx. [place]acy[place] sent:going on cruise. 09/01/24 -?-?-?-?-?-?-?-?-?-?-?-?- 21w 6d 246 lb 2 oz (+20 lb 2 oz) 125/81 Negative -?-?-?-?-?-?-?-?-?-?-?-?- Negative 145 -?-?-?-?-?-?-?-?-?-?-?-?- JV- no lof, vagi nal bleeding and feeling some movements. has anterior placenta. Has lots of heart burn. will start pepcid. anatomy scan reviewed . 09/28/24 -?-?-?-?-?-?-?-?-?-?-?-?- 25w 5d 262 lb (+36 lb) 122/76 Negative -?-?-?-?-?-?-?-?-?-?-?-?- Negative 141 -?-?-?-?-?-?-?-?-?-?-?-?- No VB. Good FM. URI and saw Urgent care and starting amoxil. Enc rest, fluids etc. 10/27/24 -?-?-?-?-?-?-?-?-?-?-?-?- 29w 6d 265 lb 4 oz (+39 lb 4 oz) 133/87 Negative -?-?-?-?-?-?-?-?-?-?-?-?- Negative 142 30 -?-?-?-?-?-?-?-?-?-?-?-?- -No Vb, LOF. G ood FM. Tdap 11/09/24 -?-?-?-?-?-?-?-?-?-?-?-?- 31w 5d 273 lb 4 oz (+47 lb 4 oz) 133/84 Negative -?-?-?-?-?-?-?-?-?-?-?-?- Negative 140 32 -?-?-?-?-?-?-?-?-?-?-?-?- SM- no vb lof go od fm no regular ctx reviewed good nutrition in 11/19/24 -?-?-?-?-?-?-?-?-?-?-?-?- 33w 1d 272 lb 6 oz (+46 lb 6 oz) 126/84 Negative -?-?-?-?-?-?-?-?-?--?-?-?- Negative 140 33 -?-?-?-?-?-?-?-?-?-?-?-?- SM- no vb lof go od fm no regular ctx 11/27/24 -?-?-?-?-?-?-?-?-?-?-?-?- 34w 2d 282 lb 3 oz (+56 lb 3 oz) 138/85 Negative -?-?-?-?-?-?-?-?-?-?-?-?- Negative 145 34 -?-?-?-?-?-?-?-?-?-?-?-?- SM- n ovb lof go od f mn oregualr ctx 12/08/24 -?-?-?-?-?-?-?-?-?-?-?-?- 35w 6d 286 lb 8 oz (+60 lb 8 oz) 130/82 Negative -?-?-?-?-?-?-?-?-?-?-?-?- Negative 160 36 -?-?-?-?-?-?-?-?-?-?-?-?- KW- no vb/lof/ct x. good fm discussed gbs for next week. 12/17/24 -?-?-?-?-?-?-?-?-?-?-?-?- 37w 1d 291 lb 2 oz (+65 lb 2 oz) 138/87 Negative -?-?-?-?-?-?-?-?-?-?-?-?- Negative 150 37 Cephalic 0 -?-?-?-?-?-?-?-?-?-?-?-?- SM- no vb lof go od fm no regular ctx 12/22/24 -?-?-?-?-?-?-?-?-?-?-?-?- 37w 6d 293 lb (+67 lb) 119/83 Negative -?-?-?-?-?-?-?-?-?-?-?-?- Negative 140 38 Cephalic 0 -?-?-?-?-?-?-?-?-?-?-?-?- SM- no vb lof go od fm n oregular ctx 12/30/24 -?-?-?-?-?-?-?-?-?-?-?-?- 39w 0d 296 lb 4 oz (+70 lb 4 oz) 119/82 Negative -?-?-?-?-?-?-?-?-?-?-?-?- Negative 145 3 Cephalic 0 .5 -?-?-?-?-?-?-?-?-?-?-?-?- 50 -3 JV- no lof , vaginal bleeding, dec fm. JV- no lof, vaginal bleeding , dec fm. on PL q 3 month pr:cr ratio were to be collected. check from october is not recorded and patient is unable to void again today. discussed will likely need one next week or after delivery 01/04/25 -?-?-?-?-?-?-?-?-?-?-?-?- 39w 5d 297 lb 7 oz (+71 lb 7 oz) 129/85 Negative -?-?-?-?-?-?-?-?-?-?-?-?- Negative 135 40 Cephalic 0 .5 -?-?-?-?-?-?-?-?-?-?-?-?- SM- no vb lof go od fm no regular ctx NST FHR Rate Baby A Baseline: 145 Variability:: Moderate Accelerations:: 15 x 15 Decelerations:: None NST Reactive:: Yes FHR Category:: Category I Uterine Activity:: 2-3 ROS Constitutional Constitutional: Denies change in weight, fatigue, fever(s), headache(s), poor appetite or weakness Eyes Eyes: Denies blurry vision, change in vision, floaters, seeing flashes or spots in vision ENT HEENT: Denies dizziness, headache(s), loss taste/smell or sore throat Cardiovascular Cardiovascular: Denies chest pain, dizziness, dyspnea, irregular heart rhythm, lightheadedness, palpitations or rapid heart rate Respiratory/Chest Respiratory/Chest: Denies change in mental status, chest tightness, cough, dyspnea or breast pain Gastrointestinal Gastrointestinal: Denies anorexia, chewing difficulty, constipation, diarrhea or weight changes Genitourinary Genitourinary: Denies difficulty urinating, dysuria, flank pain, genital pain, urinary frequency or urinary urgency Musculoskeletal Musculoskeletal: Denies back pain, difficulty walking, extremity pain, joint pain, muscle cramps or muscle weakness Integumentary Integumentary: Denies lesions or unusual bruising Neurologic Neurologic: Denies abnormal movements, abnormal speech, dizziness, numbness, seizure-like activity, syncope or weakness Psychiatric Psychiatric: Denies behavioral changes, change in appetite, confusion, depression, homicidal ideation, suicidal ideation or suicidal thoughts Endocrine Endocrinology: Denies excessive sweating, polydipsia or polyuria Hematologic/Lymphatic Hematologic/Lymphatic: Denies anemia Allergic/Immunologic Allergic/Immunologic: Denies itchy eyes, lip swelling, throat swelling, tongue swelling or wheezing Vital Signs Vital Signs Vital Signs: 01/06/25 06:37 01/06/25 06:37 01/06/25 07:48 Pulse Rate 108 H 94 Blood Pressure 138/86 H BP Systolic 138 BP Diastolic 86 Pulse Ox 01/06/25 07:48 01/06/25 07:48 01/06/25 07:48 Pulse Rate 90 Blood Pressure 144/77 H BP Systolic 144 BP Diastolic 77 Pulse Ox 99 01/06/25 07:53 01/06/25 07:53 01/06/25 07:58 Pulse Rate 95 93 Blood Pressure BP Systolic BP Diastolic Pulse Ox 98 01/06/25 07:58 01/06/25 08:02 01/06/25 08:02 Pulse Rate 114 H Blood Pressure BP Systolic BP Diastolic Pulse Ox 98 99 Weight Weight: 295 lb Body Mass Index (BMI) 44.8 Physical Exam Const alert, oriented x3 and no apparent distress General Appearance: cooperative Orientation / Consciousness: awake HEENT normocephalic Neck full ROM Lymph Lymphatic: no lymphadenopathy noted Chest inspection of chest normal Resp normal respiratory effort and normal air movement Effort and Inspection: able to speak in complete sentences and symmetric chest movement GI soft to palpation and non-tender Inspection: gravid Palpation: soft; Negative for tender external exam normal Manual OB Exam: dilated 4, effaced 90 and station -2 Back/Spine normal to inspection Extremity normal to inspection and full ROM Skin no rashes or lesions noted Psych mental status grossly normal Appearance: grossly normal Speech: normal speech Labs Labs Labs: Blood Type O POSITIVE Antibody Screen NEGATIVE Hct 37.2 % (37-47) Hgb 12.5 g/dL (12.0-15.0) Obstetrics Ultrasound Syphilis Total Ab Nonreactive (Nonreactive) Rubella IgG Antibody REAC (Nonreactive) Hep Bs Antigen Nonreactive (Nonreactive) Hepatitis C Antibody Nonreactive (Nonreactive) Chlamydia DNA (NLIDA) Negative (Negative) N.gonorrhoeae DNA (NILDA) Negative (Negative) HIV 1&2 Antibody Nonreactive (Nonreactive) Glucose 1 Hr 50 gm 110 mg/dL (70-140) Assessment & Plan (1) SROM (spontaneous rupture of membranes): PLAN: Patient presents IAL, plan expectant management for , pitocin/AROM PRN if needed. Pain management: plans epidural. GBS neg. Management of any complications: none I have reviewed the [facility] and made any clinically relevant updates. Dr Mcintosh aware of assessment, plan and admission. agrees with above (2) Kidney disease: (3) Elevated serum creatinine: COMMENT: with her reflux-runs just above normal. Follows with Dr Worley. Labs Q3mo:CMP and urine P/C ratio: 7/1: not done (4) Congenital ydcuth-zdneful-vgkgs reflux: COMMENT: check urine func Q3 mo:CMP and urine PC ratio (5) Current every day nicotine vaping: COMMENT: Has decreased % of nicotine, considering quitting, smoking education provided (6) Obesity affecting : QUALIFIERS: Trimester: second trimester Obesity type affecting : unspecified obesity Qualified Code(s): O99.212 - Obesity complicating , second trimester COMMENT: HgbA1c (7) Supervision of normal first : QUALIFIERS: Trimester: third trimester Qualified Code(s): Z34.03 - Encounter for supervision of normal first , third trimester COMMENT: PRR, , TERRENCE 01/06/25,girl Juniper Significant other Juan. nl anatomy (8) : QUALIFIERS: Weeks of gestation: 39 weeks Qualified Code(s): Z3A.39 - 39 weeks gestation of COMMENT: GBS Neg, NIPT low risk. nl anatomy (9) Anxiety: COMMENT: not medicated; stable (10) FH: hemophilia: COMMENT: Maternal Aunt, declined testing. the aunt has a different mom than her mom. Charges/Coding Multi Select Codes Urinary/Genital Urinary/Genital CPT Codes: No Charge
[2025-01-06 08:24] LABS: Hematocrit 40.2 % (37-47); Hemoglobin 13.8 g/dL (12.0-15.0); Immature Granulocytes Count 0.740 X10^3/uL (0.0-0.0); Mean Corp Hgb Conc 34.3 g/dL (32-36); Mean Corpuscular Volume 87.6 fL (81-99); Mean Platelet Vol. 10.6 fl (6.2-12.0); NRBC Flagged by Analyzer 0 % (0-5); Platelet Count 215 K/mm3 (150-450); RBC Distribution Width CV 13.2 % (11.6-14.6); RBC Distribution Width SD 42.4 fl (35.1-43.9); Red Blood Count 4.59 M/mm3 (4.2-5.4); White Blood Count 20.9 K/mm3 (4.4-11.0)
[2025-01-06] MEDS: Lactated Ringers 1,000 ML 50 ML IV (08:45)
[2025-01-06 08:57] LABS: Syphilis Antibodies Nonreactive (Nonreactive)
[2025-01-06] MEDS: fentaNYL-bupivacaine (epidural) 100 ML BAG EPIDURAL ×2 (09:59→13:06)
[2025-01-06] MEDS: Oxytocin 15 Units/NS 250ml 15 UNITS/250 ML IV.SOLN 2 UNITS IV (10:47)
--- NOTE | 2025-01-06 12:23 | PN_ITS ---
Progress Note comfortable with epidural current tracing: FHT: 140 Moderate variability reactive occasional late decelerations category II tracing [place]: 1.5-3 Contractions Membranes:ruptured for mec fluid SVE:7-8/90/0 per nursing pitocin at 2, will d/c if interventions do not correct decelerations A/P: Continue with position changes Titrate pitocin per protocol Epidural per anesthesia GBS neg Anticipate Dr Mcintosh aware of above assessment and agrees with plan of care Assessment & Plan Assessment/Plan (1) SROM (spontaneous rupture of membranes): (2) Kidney disease: (3) Elevated serum creatinine: (4) Congenital ohrufw-fpljvpk-wupwq reflux: (5) Current every day nicotine vaping: (6) Obesity affecting : QUALIFIERS: Trimester: second trimester Obesity type affecting : unspecified obesity Qualified Code(s): O99.212 - Obesity complicating , second trimester (7) Supervision of normal first : QUALIFIERS: Trimester: third trimester Qualified Code(s): Z34.03 - Encounter for supervision of normal first , third trimester (8) : QUALIFIERS: Weeks of gestation: 39 weeks Qualified Code(s): Z3A.39 - 39 weeks gestation of (9) Anxiety: (10) FH: hemophilia: Multi Select Codes Urinary/Genital Urinary/Genital CPT Codes: No Charge
[2025-01-06] MEDS: Lactated Ringers 1,000 ML 200 ML IV (13:06)
--- NOTE | 2025-01-06 13:18 | PN_ITS ---
Progress Note comfortable with epidural current tracing: FHT: 150 Moderate variability reactive recurrent late decelerations category II tracing [place]: 3-5 Contractions Membranes:meconium SVE:6-7/90/0 per reviewed tracing abnormalities since last note: collaboration with Dr Mcintosh at this time for Cat II FHT tracing. On unit and assessing, decision for CARLEE and will reevaluate in OR A/P: Continue with position changes Titrate pitocin per protocol Epidural per anesthesia GBS neg Anticipate Dr Mcintosh aware of above assessment and agrees with plan of care Assessment & Plan Assessment/Plan (1) SROM (spontaneous rupture of membranes): (2) Kidney disease: (3) Elevated serum creatinine: (4) Congenital lmtzmd-gcqatzd-jperu reflux: (5) Current every day nicotine vaping: (6) Obesity affecting : QUALIFIERS: Trimester: second trimester Obesity type affecting : unspecified obesity Qualified Code(s): O99.212 - Obesity compl icating , second trimester (7) Supervision of normal first : QUALIFIERS: Trimester: third trimester Qualified Code(s): Z34.03 - Encounter for supervision of normal first , third trimester (8) : QUALIFIERS: Weeks of gestation: 39 weeks Qualified Code(s): Z3A.39 - 39 weeks gestation of (9) Anxiety: (10) FH: hemophilia: Multi Select Codes Urinary/Genital Urinary/Genital CPT Codes: No Charge
--- NOTE | 2025-01-06 13:49 | PCM.PN.BLA ---
Progress Note Patient 6 to 7 cm with recurrent late decelerations Pitocin turned off fluid bolus given position changes employed taken to the back and monitored and decelerations resolved. heart tones 140s minimal to moderate variability reactive patient will be taken back to her room and continue expectant management at this time. Positive scalp stimulation. Category 2 tracing overall.
[2025-01-06] MEDS: 0.9% Normal Saline 1,000 ML IV.SOLN. 1000 ML INTRA-UTER (14:58)
[2025-01-06] MEDS: Oxytocin 15 Units/NS 250ml 15 UNITS/250 ML IV.SOLN 334 UNITS IV (16:57)
--- NOTE | 2025-01-06 17:04 | EX.PCM.OBVAG ---
Assessment & Plan (1) Category II heart rate tracing during labor and delivery: (2) FH: hemophilia: COMMENT: Maternal Aunt, declined testing. the aunt has a different mom than her mom. (3) Anxiety: COMMENT: not medicated; stable (4) : QUALIFIERS: Weeks of gestation: 39 weeks Qualified Code(s): Z3A.39 - 39 weeks gestation of COMMENT: GBS Neg, NIPT low risk. nl anatomy (5) Supervision of normal first : QUALIFIERS: Trimester: third trimester Qualified Code(s): Z34.03 - Encounter for supervision of normal first , third trimester COMMENT: PRR, , TERRENCE 01/06/25,girl [place] Significant other Juan. nl anatomy (6) Obesity affecting : QUALIFIERS: Trimester: second trimester Obesity type affecting : unspecified obesity Qualified Code(s): O99.212 - Obesity complicating , second trimester COMMENT: HgbA1c (7) Current every day nicotine vaping: COMMENT: Has decreased % of nicotine, considering quitting, smoking education provided (8) Congenital jemlfn-bnmztbj-ipjne reflux: COMMENT: check urine func Q3 mo:CMP and urine PC ratio (9) Elevated serum creatinine: COMMENT: with her reflux-runs just above normal. Follows with Dr Worley. Labs Q3mo:CMP and urine P/C ratio: 7/1: not done (10) Kidney disease: (11) SROM (spontaneous rupture of membranes): (12) Vacuum-assisted vaginal delivery: COMMENT: SM VAVD KW IAL SROM girl Juniper Maternal Data Information TERRENCE Calculator Estimated Delivery Date Method Current WG Current Estimate 01/06/25 LMP (Certain) 40w 0d Other Estimates 01/09/25 Ultrasound #1 39w 4d Vaginal Delivery Maternal Presentation Maternal Presentation: see assessment and plan Vaginal Delivery Information Procedure Performed: Spontaneous Vaginal Delivery Surgeon/Practitioner: Nita Mcintosh Date of Procedure: 01/06/25 Pre-Procedure Diagnosis: see assessment and plan Post-Procedure Diagnosis: same Type of anesthesia: Epidural Findings Description of procedure: Patient began pushing and delivered severe recurrent variables, was manually rotated to bryce and still was having variables, decision for vavd- vacuum applied 1 pull no pop offs and delivered the head in the BRYCE presentation. The head was delivered atraumatically . The anterior and posterior shoulders delivered without complication followed by the rest of the infant and the was placed on the maternal abdomen. Delayed cord clamping was employed for approximately 60 seconds. Cord was clamped and cut and gentle traction was applied to the cord and the placenta delivered spontaneously immediately following it was noted to be intact with three-vessel cord. The perineum and vagina were inspected and was noted to have a second -degree laceration that was repaired in the usual fashion with 3-0 vicryl rapide by tom patel . EBL was 500. Patient and infant tolerated delivery well. 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
--- NOTE | 2025-01-06 17:11 | DCINST_ITS ---
Discharge Instructions DC O2, CPAP, BIPAP needs Home O2 Discharge instructions: No Dressing / Incision Discharge Activity: Return to Normal Activity, May Not Drive (while taking narcotic pain medications.) and May Shower May resume sexual activity in: 4-6 weeks Dressing / Incision Call your doctor if your incision/area has: Continuous Slow Oozing, Sudden Increased Bleeding, Increased Pain/ Swelling, Increased Redness and Foul Smelling Discharge Follow Up Care Please Follow Up With: Nita Mcintosh MD When: Call [phone] to make an appointment with your doctor in 6 weeks. If you had elevated blood pressure or 4th degree laceration, you will need to be seen in 2 weeks. Test Results: Test results from this visit will be discussed in further detail at your follow- up appointment, if applicable. Discharge Plan Admission Admit Date/Time: 01/06/25 06:56 Attending Provider: Ntia Mcintosh Primary Care Provider: Donald Waller Discharge Orders/Prescriptions Prescriptions: No Action PNV [id number] 400 mcg-35 mg- 25 mg-5 mg tablet,chewable PO Slow Fe 137 mg (45 mg iron) tablet extended release 137 mg PO QDAY ascorbate calcium (vitamin C) 500 mg tablet 500 mg PO QDAY Probiotic (B. coagulans) 250 million cell tablet,chewable 2 tab PO ONCE ondansetron 4 mg tablet,disintegrating 4 mg PO Q4H PRN (Reason: nausea and vomiting) Qty: 60 2RF Referrals / Follow Up: Donald Waller MD [Primary Care Provider] -
--- NOTE | 2025-01-06 17:21 | PN_ITS ---
Progress Note comfortable with epidural current tracing: FHT: 150 Moderate variability reactive significant variable decelerations with pushing. category II tracing [place]: 3-5 minute Contractions Membranes: SVE:pushing reviewed tracing abnormalities since last note: collaboration with SM. she was on floor for pushing. had significant variable with pushing and came in for kiwi delivery. one pull and no pop offs. head delivered by SM and infant then delivered by me. placenta and repair completed by myself. A/P: Continue with position changes Titrate pitocin per protocol Epidural per anesthesia GBS neg Anticipate Dr Mcintosh aware of above assessment and agrees with plan of care Assessment & Plan Assessment/Plan (1) Vacuum-assisted vaginal delivery: (2) Category II heart rate tracing during labor and delivery: (3) SROM (spontaneous rupture of membranes): (4) Kidney disease: (5) Elevated serum creatinine: (6) Congenital mtdsjp-gzxopmd-wgjqx reflux: (7) Current every day nicotine vaping: (8) Obesity affecting : QUALIFIERS: Trimester: second trimester Obesity type affecting : unspecified obesity Qualified Code(s): O99.212 - Obesity complicating , second trimester (9) Supervision of normal first : QUALIFIERS: Trimester: third trimester Qualified Code(s): Z34.03 - Encounter for supervision of normal first , third trimester (10) : QUALIFIERS: Weeks of gestation: 39 weeks Qualified Code(s): Z3A.39 - 39 weeks gestation of (11) Anxiety: (12) FH: hemophilia: Multi Select Codes Urinary/Genital Urinary/Genital CPT Codes: No Charge
[2025-01-06] MEDS: Oxytocin 15 Units/NS 250ml 15 UNITS/250 ML IV.SOLN 83 UNITS IV (17:42)
[2025-01-07 04:07] VITALS: BP 142/85; PULSE 99; RESP 16; TEMP 36.2; O2SAT 98
[2025-01-07 05:10] VITALS: BP 128/71
--- NOTE | 2025-01-07 07:47 | PN.OBGYN_ITS ---
Subjective Subjective Patient doing well without complaints. Tolerating PO. Ambulating and voiding without difficulty. Feeding well. Denies chest pain, shortness of breath, calf pain/swelling, fevers, chills, lightheadedness. Objective Data Objective Data Vital Signs: Vital Signs Temp Pulse Resp BP Pulse Ox O2 Del Method 97.2 F L 99 16 128/71 H 98 Room Air 01/07/25 04:07 01/07/25 04:07 01/07/25 04:07 01/07/25 05:10 01/07/25 04:07 01/07/25 04:07 Oxygen Delivery Method Room Air Weight: 295 lb Body Mass Index (BMI) 44.8 Intake & Output: Intake and Output for Last 24 Hours 01/05/25 01/06/25 01/07/25 23:59 23:59 23:59 Intake Total 2564.17 / 2564.17 Output Total 1150 / 1150 700 / 700 Balance 1414.17 / 1414.17 -700 / -700 Lab / Micro Data 01/06/25 08:10 Labs: Laboratory Results - last 24 hr 01/06/25 08:10: WBC 20.9 H, RBC 4.59, Hgb 13.8, Hct 40.2, MCV 87.6, MCH 30.1, MCHC 34.3, RDW Std Deviation 42.4, RDW Coeff of Jaspreet 13.2, Plt Count 215, MPV 10.6, Immature Gran % (Auto) 3.500 H, Neut % (Auto) 79.8 H, Lymph % (Auto) 9.7 L , [place] % (Auto) 6.0, Eos % (Auto) 0.6, Baso % (Auto) 0.4, Absolute Neuts (auto) 16.7 H, Absolute Lymphs (auto) 2.03, Nucleated RBC % 0, Syphilis Total Ab Nonreactive, Blood Type O POSITIVE, Antibody Screen NEGATIVE Physical Exam Const alert and oriented x3 HEENT normocephalic Eyes PERRL Neck full ROM Resp normal respiratory effort GI soft to palpation GI Narrative: FF below U Assessment & Plan (1) Vacuum-assisted vaginal delivery: COMMENT: SM VAVD KW IAL SROM girl Juniper (2) Kidney disease: (3) Elevated serum creatinine: COMMENT: with her reflux-runs just above normal. Follows with Dr Worley. Labs Q3mo:CMP and urine P/C ratio: 7/: not done (4) Congenital tteefz-rxnfhqt-vgyjv reflux: COMMENT: check urine func Q3 mo:CMP and urine PC ratio (5) Current every day nicotine vaping: COMMENT: Has decreased % of nicotine, considering quitting, smoking education provided (6) Anxiety: COMMENT: not medicated; stable (7) FH: hemophilia: COMMENT: Maternal Aunt, declined testing. the aunt has a different mom than her mom. PLAN: Plan s/p VAVD PPD # 1 1. routine post delivery care 2. breast feeding- support given 3. rh positive 4. rubella immune 5. enc stool softener 5-7 days at home 6. home today
[2025-01-07 08:40] VITALS: BP 126/94; PULSE 94; RESP 16; TEMP 36.4
[2025-01-07] MEDS: MEASLES,MUMPS,RUBELLA VACC/PF 0.5 ML SC (12:22)
[2025-01-07 12:30] VITALS: BP 142/75; PULSE 94; RESP 16; TEMP 36.6
[2025-01-07 16:00] VITALS: BP 135/84; PULSE 96; RESP 16; TEMP 36.8
== END 2025-01-07 18:00 | disposition home or self-care (01) | DRG 807 ==
LOC: WP 07:20
PROVIDERS: Admitting Provider Obstetrics & Gynecology; PCP Family Medicine; Referring Provider Obstetrics & Gynecology; Visit Provider Obstetrics & Gynecology
DX: O76 Abnormality in fetal heart rate and rhythm complicating labor and delivery (principal); Z37.0 Single live birth; O99.344 Other mental disorders complicating childbirth; F17.210 Nicotine dependence, cigarettes, uncomplicated; O99.214 Obesity complicating childbirth; F41.9 Anxiety disorder, unspecified; O28.8 Other abnormal findings on antenatal screening of mother; O99.334 Smoking (tobacco) complicating childbirth; N28.9 Disorder of kidney and ureter, unspecified; O77.0 Labor and delivery complicated by meconium in amniotic fluid; Z3A.40 40 weeks gestation of pregnancy; Q62.7 Congenital vesico-uretero-renal reflux; O99.893 Other specified diseases and conditions complicating puerperium; O70.1 Second degree perineal laceration during delivery
CPT/HCPCS: 59025; 59050; 85025; 86780; 86850; 86900; 86901; 99221; G0378; J2405